=== PATIENT | male | born 1945 | race Caucasian/White ===

== ENCOUNTER → 2017-01-04 | Outpatient (CLI) | payer MEDICARE, OTHER ==
[2017-01-04 15:06] LABS: CH 33.2; CHCM 32.2; HDW 2.31; HGB 20.4 gm/dL (13.0-17.5); MCH 32.6 pg (25.0-35.0); MCHC 31.3 g/dL (31.0-37.0); MCV 103.8 fL (80.0-100.0); Macrocytosis Slight; Mean Platelet Volume 6.3; RBC 6.27 m/uL (4.30-5.90); RDW 14.1 % (11.5-15.5); WBC 5.7 k/uL (3.8-10.6)
[2017-01-04 15:09] LABS: Appearance,Urine Clear (Clear); Bilirubin,Urine Negative (Negative); Glucose,Urine (UA) Negative (Negative); Ketones,Urine Negative (Negative); Leukocyte Esterase,Urine Negative (Negative); Nitrite,Urine Negative (Negative); Protein,Urine Negative (Negative); Specific Gravity,Urine 1.007 (1.001-1.035); UA Billing (MACRO vs. MICRO) CHEM; Urobilinogen,Urine <2.0 mg/dL (<2.0)
[2017-01-04 15:15] LABS: INR 1.3 (<1.2); Partial Thromboplastin Time 26.9 sec (22.0-30.0); Prothrombin Time 12.8 sec (9.0-12.0)
[2017-01-04 15:18] LABS: ALT 49 U/L (21-72); AST 31 U/L (17-59); Alkaline Phosphatase 81 U/L (38-126); Anion Gap 11 mmol/L; Blood Urea Nitrogen 15 mg/dL (9-20); Calcium 9.9 mg/dL (8.4-10.2); Carbon Dioxide 26 mmol/L (22-30); Chloride 105 mmol/L (98-107); Glucose 92 mg/dL (74-99); Non-African American GFR(MDRD) >60 (>60 ml/min/1.73 sqM); Potassium 4.7 mmol/L (3.5-5.1); Sodium 142 mmol/L (137-145); Total Bilirubin 0.7 mg/dL (0.2-1.3)
[2017-01-04 16:05] LABS: HCT 65.1 % (39.0-53.0)
== END | disposition home or self-care (01) ==
LOC: LABPAT 14:37
PROVIDERS: ATTEND Orthopaedic Surgery
DX: Z01.812 Encounter for preprocedural laboratory examination (principal); M19.90 Unspecified osteoarthritis, unspecified site; Z79.01 Long term (current) use of anticoagulants
CPT/HCPCS: 36415; 80053; 81003; 85027; 85610; 85730; 87070

== ENCOUNTER → 2017-07-15 | Outpatient (CLI) | payer MEDICARE, OTHER ==
[2017-07-15 11:28] VITALS: BMI 46.5
== END | disposition home or self-care (01) ==
LOC: MNTWWP 09:14
PROVIDERS: ATTEND Orthopaedic Surgery
DX: E66.01 Morbid (severe) obesity due to excess calories (principal)
CPT/HCPCS: 97802

== ENCOUNTER → 2018-08-12 | Outpatient (CLI) | payer OTHER ==
--- NOTE | 2018-08-12 17:30 | XR ---
EXAMINATION TYPE: XR elbow complete RT DATE OF EXAM: 08/12/2018 COMPARISON: NONE HISTORY: Fall. Laceration. TECHNIQUE: 3 views FINDINGS: There is spurring on the olecranon process of the ulna. I see no fracture nor dislocation. Joint spaces are normal. There is no sign of joint effusion. There is spurring on the coronoid proces s of the ulna. IMPRESSION: Degenerative spurring. No fracture.
== END | disposition home or self-care (01) ==
LOC: RAD 16:49
PROVIDERS: ATTEND Emergency Medicine
DX: M77.8 Other enthesopathies, not elsewhere classified (principal)

== ENCOUNTER 2018-09-06 21:56 | Inpatient (IN) | payer MEDICARE, OTHER ==
[2018-09-06] MEDS ORDERED: VANCOMYCIN IV PER PHARMACY 1 EACH MISC MISCELLANE PRN (22:50)
[2018-09-06] MEDS ORDERED: DILTIAZEM DRIP BOLUS FROM BAG 1 MG SOLN IV ONE (23:09)
--- NOTE | 2018-09-06 23:10 | ED ---
SOB HPI - General Chief Complaint: Shortness of Breath Stated Complaint: Edema/TRENT Time Seen by Provider: 09/06/18 22:42 Source: patient, family Mode of arrival: wheelchair Limitations: no limitations - History of Present Illness Initial Comments: Deondre an obese 72-year-old gentleman with history of COPD and CHF who presents the emergency department today with multiple complaints. Patient reports that he is notices lower abdomen is very warm and tender he's concerned that there may be an infection in the skin. In addition he feels like he can't catch his breath and his heart is racing. She reports that this is been progressively worsening throughout the day today which prompted him to come to the ER for further evaluation. Patient also notes that his lower extremities are swollen he seems to be retaining water worse than usual. Patient reports his been compliant with all his home medications he was seen by his primary care physician last week and told that his EKG did not look well and he needed to follow up with cardiology this week. - Related Data Home Medications Medication Instructions Recorded Confirmed Beclomethasone Dipropionate [Qvar 1 puff INHALATION RT-BID 10/08/14 01/22/17 80 mcg/puff] Multivitamin [Men's Multi-Vitamin] 1 tab PO DAILY 10/08/14 01/22/17 Furosemide [Lasix] 20 mg PO BID 11/12/15 01/22/17 Potassium Chloride [K-Tab ER] 10 meq PO DAILY 11/12/15 01/22/17 Acetaminophen/Diphenhydramine 3 tab PO BID PRN 01/08/17 01/22/17 [Tylenol PM Extra Strength] Albuterol Sulfate [Proair 1 puff INHALATION RT-BID 01/08/17 01/22/17 Respiclick] Ipratropium-Albuterol Nebulize 3 ml INHALATION RT-QID PRN 01/08/17 01/22/17 [Duoneb 0.5 mg-3 mg/3 ml Soln] Previous Rx's Medication Instructions Recorded Aspirin EC [Ecotrin Low Dose] 81 mg PO DAILY #0 tablet. 01/11/15 Atorvastatin [Lipitor] 20 mg PO HS #30 tab 01/11/15 Montelukast [Singulair] 10 mg PO HS #30 tab 01/11/15 Enoxaparin Sodium [Lovenox] 30 mg SQ BID #12 syringe 01/14/17 HYDROcodone/APAP 7.5-325MG [[place] 1 - 2 tab PO Q4-6H PRN #90 tab 01/14/17 7.5-325] Sennosides-Docusate Sodium 1 tab PO BID #60 tablet 01/14/17 [Senokot-S] Warfarin [Coumadin] 5 mg PO DAILY #30 tab 01/14/17 Allergies Allergy/AdvReac Type Severity Reaction Status Date / Time warfarin [From Coumadin] AdvReac SEE Verified 01/22/17 11:41 COMMENTS Review of Systems ROS Statement: Those systems with pertinent positive or pertinent negative responses have been documented in the HPI. ROS Other: All systems not noted in ROS Statement are negative. Past Medical History Past Medical History: Atrial Fibrillation, Asthma, Blood Disorder, Chest Pain / Angina, COPD, GERD/Reflux, Hyperlipidemia, Hypertension, Skin Disorder, Sleep Apnea/CPAP/BIPAP Additional Past Medical History / Comment(s): psoriasis, hemoglobin [place] with polycythemia, pericardial effusion, hx hiatal hernia, uses oxygen 2L ching nuously History of Any Multi-Drug Resistant Organisms: None Reported Past Surgical History: Appendectomy, Hernia Repair Additional Past Surgical History / Comment(s): Laparoscopic lucia fundloplasty and mesh repair of hiatal hernia. arthroscopy left knee Past Anesthesia/Blood Transfusion Reactions: Motion Sickness Additional Past Anesthesia/Blood Transfusion Reaction / Comment(s): . Past Psychological History: No Psychological Hx Reported Smoking Status: Former smoker - Past Family History Sister(s) Family Medical History: Deep Vein Thrombosis (DVT) Brother(s) Family Medical History: Myocardial Infarction (NV) Additional Family Medical History / Comment(s): Brother had a NV at age 71 yrs. Father Family Medical History: Cancer Additional Family Medical History / Comment(s): . Mother Family Medical History: Cancer Additional Family Medical History / Comment(s): . General Exam - General Exam Comments Initial Comments: Physical Exam GENERAL: Chronically ill appearing morbidly obese gentleman HENT: Normocephalic, Atraumatic. EYES: PERRL, EOMI PULMONARY: Tachypnea, crackles at the bilateral bases CARDIOVASCULAR: Tachycardic, regular ABDOMEN: Obese, normal active bowel sounds Lower abdomen is erythematous with obvious lymphedema, induration, no obvious abscesses noted SKIN: Cellulitis of lower abdomen noted Bilateral lower extremity skin changes consistent with chronic venous stasis : Deferred NEUROLOGIC: Patient is alert and oriented x3. Moving all extremities spontaneously MUSCULOSKELETAL: Normal extremities with adequate strength and full range of motion. No lower extremity swelling or edema. No calf tenderness. PSYCHIATRIC: Normal psychiatric evaluation Limitations: no limitations Course Vital Signs 09/06/18 09/06/18 09/07/18 22:18 23:24 00:30 Temperature 98.0 F 97.6 F 97.4 F L Pulse Rate 135 H 144 H 138 H Respiratory 22 26 H 20 Rate Blood Pressure 153/80 128/97 129/91 O2 Sat by Pulse 97 98 99 Oximetry 09/07/18 09/07/18 09/07/18 01:30 01:53 02:18 Temperature Pulse Rate 135 H 138 H 129 H Respiratory 21 Rate Blood Pressure 134/85 O2 Sat by Pulse 99 Oximetry 09/07/18 09/07/18 09/07/18 02:30 03:17 03:30 Temperature 97.9 F Pulse Rate 129 H 113 H 112 H Respiratory 21 22 19 Rate Blood Pressure 101/77 98/76 127/101 O2 Sat by Pulse 99 97 99 Oximetry 09/07/18 04:30 Temperature 97.3 F L Pulse Rate 114 H Respiratory 21 Rate Blood Pressure 118/75 O2 Sat by Pulse 99 Oximetry Medical Decision Making - Medical Decision Making The patient was seen and evaluated, history was obtained from the patient Patient has obvious cellulitis of the abdomen in addition is noted to be in A. flutter with RVR and CHF exacerbation, sepsis workup was initiated however IV fluids were held given the patient's physical exam concerning for fluid overload Cardizem was ordered for tachyarrhythmia Labs were delayed due to clotting of blood and inability to process CMP at baseline CBC was redrawn and resulted with Hgb of 8.7 - concern this may be due to dilution from IV fluids therefore repeat CBC was ordered which resulted again with hemoglobin 8.9 this is a significant drop from the patient's baseline which is usually 1718 as the patient has a history of polycythemia Despite receiving Cardizem patient's heart rate continues to be in the 120s, patient care was discussed with wire roller Dr. Carvajal who states that due to the difficulty of controlling rate in atrial flutter the patient is okay to have a heart rate below 140. Patients heart rate steady in the 1 teens to 120s on CT scan resulted with evidence of cellulitis in the lower abdomen no other acute pathology there is no free air there is no signs of abscess collection in the soft tissues Patient care was discussed with admitting physician Dr.Katrib Kulkarni to be admitted for cellulitis of the abdomen, atrial flutter with 2-1 conduction block with cardiology on consult, new onset anemia of unknown cause - Lab Data Result diagrams: 09/07/18 03:50 09/06/18 23:20 Lab Results 09/06/18 09/06/18 09/06/18 Range/Units 23:20 23:20 23:20 WBC (3.8-10.6) k/uL RBC (4.30-5.90) m/uL Hgb (13.0-17.5) gm/dL Hct (39.0-53.0) % MCV (80.0-100.0) fL MCH (25.0-35.0) pg MCHC (31.0-37.0) g/dL RDW (11.5-15.5) % Plt Count (150-450) k/uL Neutrophils % % Lymphocytes % % Monocytes % % Eosinophils % % Basophils % % Neutrophils # (1.3-7.7) k/uL Lymphocytes # (1.0-4.8) k/uL Monocytes # (0-1.0) k/uL Eosinophils # (0-0.7) k/uL Basophils # (0-0.2) k/uL Hypochromasia Poikilocytosis Anisocytosis Microcytosis PT (9.0-12.0) sec INR (<1.2) APTT (22.0-30.0) sec Sodium 132 L (137-145) mmol/L Potassium 4.8 (3.5-5.1) mmol/L Chloride 98 (98-107) mmol/L Carbon Dioxide 21 L (22-30) mmol/L Anion Gap 13 mmol/L BUN 12 (9-20) mg/dL Creatinine 0.75 (0.66-1.25) mg/dL Est GFR (CKD-EPI)AfAm >90 (>60 ml/min/1.73 sqM) Est GFR (CKD-EPI)NonAf >90 (>60 ml/min/1.73 sqM) Glucose 105 H (74-99) mg/dL Plasma Lactic Acid Roberto 1.7 (0.7-2.0) mmol/L Calcium 8.4 (8.4-10.2) mg/dL Magnesium 2.1 (1.6-2.3) mg/dL Total Bilirubin 0.6 (0.2-1.3) mg/dL AST 68 H (17-59) U/L ALT 29 (21-72) U/L Alkaline Phosphatase 93 (38-126) U/L Troponin I <0.012 (0.000-0.034) ng/mL NT-Pro-B Natriuret Pep pg/mL Total Protein 6.7 (6.3-8.2) g/dL Albumin 3.9 (3.5-5.0) g/dL Urine Color Urine Appearance (Clear) Urine pH (5.0-8.0) Ur Specific [place] (1.001-1.035) Urine Protein (Negative) Urine Glucose (UA) (Negative) Urine Ketones (Negative) Urine Blood (Negative) Urine Nitrite (Negative) Urine Bilirubin (Negative) Urine Urobilinogen (<2.0) mg/dL Ur Leukocyte Esterase (Negative) 09/07/18 09/07/18 09/07/18 Range/Units 02:02 02:02 02:02 WBC 7.2 (3.8-10.6) k/uL RBC 4.53 (4.30-5.90) m/uL Hgb 8.7 L (13.0-17.5) gm/dL Hct 31.3 L (39.0-53.0) % MCV 69.1 L (80.0-100.0) fL MCH 19.2 L (25.0-35.0) pg MCHC 27.8 L (31.0-37.0) g/dL RDW 19.0 H (11.5-15.5) % Plt Count 239 (150-450) k/uL Neutrophils % 76 % Lymphocytes % 12 % Monocytes % 5 % Eosinophils % 3 % Basophils % 0 % Neutrophils # 5.5 (1.3-7.7) k/uL Lymphocytes # 0.9 L (1.0-4.8) k/uL Monocytes # 0.4 (0-1.0) k/uL Eosinophils # 0.2 (0-0.7) k/uL Basophils # 0.0 (0-0.2) k/uL Hypochromasia Marked Poikilocytosis Moderate Anisocytosis Slight Microcytosis Marked PT 11.0 (9.0-12.0) sec INR 1.0 (<1.2) APTT 24.7 (22.0-30.0) sec Sodium (137-145) mmol/L Potassium (3.5-5.1) mmol/L Chloride (98-107) mmol/L Carbon Dioxide (22-30) mmol/L Anion Gap mmol/L BUN (9-20) mg/dL Creatinine (0.66-1.25) mg/dL Est GFR (CKD-EPI)AfAm (>60 ml/min/1.73 sqM) Est GFR (CKD-EPI)NonAf (>60 ml/min/1.73 sqM) Glucose (74-99) mg/dL Plasma Lactic Acid Roberto (0.7-2.0) mmol/L Calcium (8.4-10.2) mg/dL Magnesium (1.6-2.3) mg/dL Total Bilirubin (0.2-1.3) mg/dL AST (17-59) U/L ALT (21-72) U/L Alkaline Phosphatase (38-126) U/L Troponin I (0.000-0.034) ng/mL NT-Pro-B Natriuret Pep 1070 pg/mL Total Protein (6.3-8.2) g/dL Albumin (3.5-5.0) g/dL Urine Color Urine Appearance (Clear) Urine pH (5.0-8.0) Ur Specific [place] (1.001-1.035) Urine Protein (Negative) Urine Glucose (UA) (Negative) Urine Ketones (Negative) Urine Blood (Negative) Urine Nitrite (Negative) Urine Bilirubin (Negative) Urine Urobilinogen (<2.0) mg/dL Ur Leukocyte Esterase (Negative) 09/07/18 09/07/18 Range/Units 02:02 03:50 WBC 7.0 (3.8-10.6) k/uL RBC 4.72 (4.30-5.90) m/uL Hgb 8.9 L (13.0-17.5) gm/dL Hct 32.6 L (39.0-53.0) % MCV 69.1 L (80.0-100.0) fL MCH 18.9 L (25.0-35.0) pg MCHC 27.4 L (31.0-37.0) g/dL RDW 18.9 H (11.5-15.5) % Plt Count 251 (150-450) k/uL Neutrophils % 73 % Lymphocytes % 16 % Monocytes % 5 % Eosinophils % 2 % Basophils % 0 % Neutrophils # 5.1 (1.3-7.7) k/uL Lymphocytes # 1.1 (1.0-4.8) k/uL Monocytes # 0.4 (0-1.0) k/uL Eosinophils # 0.2 (0-0.7) k/uL Basophils # 0.0 (0-0.2) k/uL Hypochromasia Marked Poikilocytosis Moderate Anisocytosis Slight Microcytosis Marked PT (9.0-12.0) sec INR (<1.2) APTT (22.0-30.0) sec Sodium (137-145) mmol/L Potassium (3.5-5.1) mmol/L Chloride (98-107) mmol/L Carbon Dioxide (22-30) mmol/L Anion Gap mmol/L BUN (9-20) mg/dL Creatinine (0.66-1.25) mg/dL Est GFR (CKD-EPI)AfAm (>60 ml/min/1.73 sqM) Est GFR (CKD-EPI)NonAf (>60 ml/min/1.73 sqM) Glucose (74-99) mg/dL Plasma Lactic Acid Roberto (0.7-2.0) mmol/L Calcium (8.4-10.2) mg/dL Magnesium (1.6-2.3) mg/dL Total Bilirubin (0.2-1.3) mg/dL AST (17-59) U/L ALT (21-72) U/L Alkaline Phosphatase (38-126) U/L Troponin I (0.000-0.034) ng/mL NT-Pro-B Natriuret Pep pg/mL Total Protein (6.3-8.2) g/dL Albumin (3.5-5.0) g/dL Urine Color Yellow Urine Appearance Clear (Clear) Urine pH 5.5 (5.0-8.0) Ur Specific [place] 1.018 (1.001-1.035) Urine Protein Trace H (Negative) Urine Glucose (UA) Negative (Negative) Urine Ketones Negative (Negative) Urine Blood Negative (Negative) Urine Nitrite Negative (Negative) Urine Bilirubin Negative (Negative) Urine Urobilinogen <2.0 (<2.0) mg/dL Ur Leukocyte Esterase Negative (Negative) Disposition Clinical Impression: Cellulitis of abdominal wall, Atrial flutter, Congestive heart failure, Acute exacerbation of chronic obstructive airways disease, Psoriasis, Obesity, Hypertension, Anemia Disposition: ADMITTED IP TO THIS HOSP Condition: Serious Referrals: Nolberto Cevallos DO [Primary Care Provider] - 1-2 days
[2018-09-06 23:50] LABS: ALT 29 U/L (21-72); AST 68 U/L (17-59); African American GFR (CKD) >90 (>60 ml/min/1.73 sqM); Albumin 3.9 g/dL (3.5-5.0); Alkaline Phosphatase 93 U/L (38-126); Anion Gap 13 mmol/L; Blood Urea Nitrogen 12 mg/dL (9-20); Calcium 8.4 mg/dL (8.4-10.2); Carbon Dioxide 21 mmol/L (22-30); Chloride 98 mmol/L (98-107); Glucose 105 mg/dL (74-99); Magnesium 2.1 mg/dL (1.6-2.3); Potassium 4.8 mmol/L (3.5-5.1); Sodium 132 mmol/L (137-145); Total Bilirubin 0.6 mg/dL (0.2-1.3); Total Protein 6.7 g/dL (6.3-8.2)
[2018-09-07] MEDS ORDERED: VANCOMYCIN 2,250 MG in SODIUM CHLORIDE 0.9% 500 ML 500 ML IVPB ONE ×2
[2018-09-07] MEDS: DILTIAZEM 125 MG in SODIUM CHLORIDE 0.9% 100 ML IV SCH ×2 (00:06→09:15)
--- NOTE | 2018-09-07 00:13 | XR ---
EXAM: XR Chest, 2 Views CLINICAL HISTORY: ITS.REASON XR Reason: Chest Pain TECHNIQUE: Frontal and lateral views of the chest. COMPARISON: Chest radiograph on 01/24/2017 FINDINGS: Hardware: None. Lungs/pleura: Lower lung opacities may represent atelectasis versus pneumonia. Possible pulmonary vasculature congestion. Similar elevation of the right hemidiaphragm with gas-filled bowel interposed between the diaphragm and liver. No pleural effusion or pneumothorax. Heart/mediastinum: Normal. No cardiomegaly. Soft tissues: Unremarkable. Bones: No acute fracture. Upper abdomen: Normal. IMPRESSION: Bibasilar opacities may represent atelectasis versus pneumonia. Pulmonary vasculature congestion.
[2018-09-07] MEDS ORDERED: MORPHINE SULFATE 4 MG/ML SYRINGE IVP STA (00:31)
[2018-09-07 02:19] LABS: Appearance,Urine Clear (Clear); Bilirubin,Urine Negative (Negative); Blood,Urine Negative (Negative); Color,Urine Yellow; Glucose,Urine (UA) Negative (Negative); Ketones,Urine Negative (Negative); Leukocyte Esterase,Urine Negative (Negative); Nitrite,Urine Negative (Negative); PH, Urine 5.5 (5.0-8.0); Protein,Urine Trace (Negative); Specific Gravity,Urine 1.018 (1.001-1.035); Urobilinogen,Urine <2.0 mg/dL (<2.0)
[2018-09-07 02:20] LABS: Anisocytosis Slight; Basophils % (A) 0 %; Eosinophils # (A) 0.2 k/uL (0-0.7); Eosinophils % (A) 3 %; HCT 31.3 % (39.0-53.0); HGB 8.7 gm/dL (13.0-17.5); Hypochromasia Marked; Lymphocytes # (A) 0.9 k/uL (1.0-4.8); Lymphocytes % (A) 12 %; MCH 19.2 pg (25.0-35.0); MCHC 27.8 g/dL (31.0-37.0); MCV 69.1 fL (80.0-100.0); Mean Platelet Volume 6.2; Microcytosis Marked; Monocytes # (A) 0.4 k/uL (0-1.0); Monocytes % (A) 5 %; Neutrophils # (A) 5.5 k/uL (1.3-7.7); Neutrophils % (A) 76 %; Platelet Count 239 k/uL (150-450); Poikilocytosis Moderate; RBC 4.53 m/uL (4.30-5.90); WBC 7.2 k/uL (3.8-10.6)
[2018-09-07 02:24] LABS: Partial Thromboplastin Time 24.7 sec (22.0-30.0)
--- NOTE | 2018-09-07 03:15 | CT ---
EXAM: CT Abdomen and Pelvis With Intravenous Contrast CLINICAL HISTORY: ITS.REASON CT Reason: Cellulitis of abdominal wall/panus TECHNIQUE: Axial computed tomography images of the abdomen and pelvis with intravenous contrast. CTDI is 50 mGy and DLP is 2531 mGy-cm. This CT exam was performed using one or more of the following dose reduction techniques: automated exposure control, adjustment of the mA and/or kV according to patient size, and/or use of iterative reconstruction technique. COMPARISON: No relevant prior studies available. FINDINGS: Lung bases: No mass. No consolidation. ABDOMEN: Liver: Enlarged with slightly nodular surface.. Gallbladder and bile ducts: Unremarkable. Pancreas: Unremarkable. Spleen: Mildly enlarged. Adrenals: Unremarkable. Kidneys and ureters: No hydronephrosis. Stomach and bowel: No bowel obstruction. No bowel wall thickening. Colonic diverticulosis. PELVIS: Appendix: No appendicitis. Bladder: Unremarkable. Reproductive: Enlarged. ABDOMEN and PELVIS: Intraperitoneal space: Trace ascites. Bones/joints: No acute fractures. Chronic wedging of T8 and CT 12 (30% and 80% respectively). No retropulsion. Soft tissues: Soft tissue stranding along the mid to lower anterior abdominal wall. No abscess. Vasculature: No abdominal aortic aneurysm. Lymph nodes: No enlarged lymph nodes. IMPRESSION: 1. Soft tissue stranding in the mid to lower anterior abdominal wall without abscess, likely represent cellulitis. 2. Hepatosplenomegaly with mild nodular surface of the liver suggestive of early cirrhotic changes. Trace ascites. 3. Prostatomegaly. 4. Colonic diverticulosis.
[2018-09-07 04:14] LABS: Anisocytosis Slight; Basophils % (A) 0 %; Eosinophils # (A) 0.2 k/uL (0-0.7); Eosinophils % (A) 2 %; HCT 32.6 % (39.0-53.0); HGB 8.9 gm/dL (13.0-17.5); Hypochromasia Marked; Lymphocytes # (A) 1.1 k/uL (1.0-4.8); Lymphocytes % (A) 16 %; MCH 18.9 pg (25.0-35.0); MCHC 27.4 g/dL (31.0-37.0); MCV 69.1 fL (80.0-100.0); Microcytosis Marked; Monocytes # (A) 0.4 k/uL (0-1.0); Monocytes % (A) 5 %; Neutrophils # (A) 5.1 k/uL (1.3-7.7); Neutrophils % (A) 73 %; Platelet Count 251 k/uL (150-450); Poikilocytosis Moderate; RBC 4.72 m/uL (4.30-5.90); RDW 18.9 % (11.5-15.5)
[2018-09-07] MEDS ORDERED: FUROSEMIDE 10 MG/ML 4 ML VIAL IV STA (05:08)
[2018-09-07] MEDS ORDERED: NALOXONE 0.4 MG/ML 1 ML VIAL IV PRN (06:11)
[2018-09-07] MEDS ORDERED: HEPARIN SODIUM,PORCINE 5,000 UNIT/ML 1 ML VIAL IV ONE (06:13)
[2018-09-07] MEDS: HEPARIN SOD,PORK IN 0.45% NACL 25,000 UNIT in 0.45% NACL 1 250ML.BAG IV SCH (06:39)
[2018-09-07] MEDS: VANCOMYCIN 2,000 MG in SODIUM CHLORIDE 0.9% 500 ML 500 ML IVPB SCH ×2 (09:21→20:42)
[2018-09-07 09:42] LABS: Anisocytosis Slight; Basophils % (A) 0 %; Eosinophils # (A) 0.1 k/uL (0-0.7); Eosinophils % (A) 2 %; HCT 34.3 % (39.0-53.0); HGB 9.3 gm/dL (13.0-17.5); Hypochromasia Marked; Lymphocytes # (A) 0.8 k/uL (1.0-4.8); Lymphocytes % (A) 11 %; MCH 19.5 pg (25.0-35.0); MCHC 27.1 g/dL (31.0-37.0); Mean Platelet Volume 6.5; Microcytosis Moderate; Monocytes # (A) 0.4 k/uL (0-1.0); Monocytes % (A) 6 %; Neutrophils # (A) 5.5 k/uL (1.3-7.7); Neutrophils % (A) 79 %; Platelet Count 241 k/uL (150-450); Poikilocytosis Moderate; RBC 4.77 m/uL (4.30-5.90); RDW 18.1 % (11.5-15.5)
[2018-09-07 09:52] LABS: D-Dimer 0.75 mg/L FEU (<0.60); Partial Thromboplastin Time 34.7 sec (22.0-30.0); Prothrombin Time 10.9 sec (9.0-12.0)
[2018-09-07] MEDS: traMADol 50 MG TAB PO PRN (11:13)
[2018-09-07] MEDS: VERAPAMIL SR 180 MG TABLET.ER PO SCH (11:13)
[2018-09-07] MEDS: MULTIVITAMINS, THERA 1 EACH TAB PO SCH (11:13)
--- NOTE | 2018-09-07 11:13 | P.HPIM ---
History of Present Illness H&P Date: 09/07/18 Chief Complaint: Shortness breath This is 72 years old male with past medical history significant for chronic respiratory failure with hypoxia home oxygen dependent presented to the emergency department with shortness of breath. Patient stated normally he uses oxygen at the bedtime with his CPAP machine but don't use oxygen during the day as his saturation ranged between 89-92% on room air. Patient stated that his shortness breath has been worsening slowly and gradually with worsening lower extremity edema and today patient was having chest palpitation that he was co ncerned about and presented to the emergency department. Patient stated that his symptoms happened slowly and gradually was having difficulty laying in bed and stated that his been up sitting in his recliner all the time due to shortness breath. Patient stated that his lower extremity swelling has worsened despite taking Lasix 40 mg twice daily and stated that he's taking all his medication as his dispense to him. I spoke to the over the phone who stated that patient quit taking Coumadin 3 years ago after his knee surgery and easy bruising where the visiting nurse asked him to hold Coumadin and see director surface transportation but they did not schedule appointment with director surface transportation for the last 3 years at the time patient is well known to have atrial fibrillation/flutter. Patient stated that his shortness breath has slightly improved since yesterday but still unable to sleep in bed complaining of lower extremity weakness denied any recent upper respiratory symptoms denying dysuria denying productive cough and stated that his oxygen need stated the same. Patient denying tobacco alcohol or drug abuse Review of Systems All 14 systems reviewed and negative except as above Past Medical History Past Medical History: Atrial Fibrillation, Asthma, Blood Disorder, Chest Pain / Angina, COPD, GERD/Reflux, Hyperlipidemia, Hypertension, Skin Disorder, Sleep Apnea/CPAP/BIPAP Additional Past Medical History / Comment(s): psoriasis, hemoglobin [place] with polycythemia, pericardial effusion, hx hiatal hernia, hx bowel obstruction, uses oxygen 2L at , 09/07/2018-cellulitis History of Any Multi-Drug Resistant Organisms: None Reported Past Surgical History: Appendectomy, Hernia Repair Additional Past Surgical History / Comment(s): Laparoscopic lucia fundloplasty and mesh repair of hiatal hernia. arthroscopy left knee Past Anesthesia/Blood Transfusion Reactions: Motion Sickness Additional Past Anesthesia/Blood Transfusion Reaction / Comment(s): . Past Psychological History: No Psychological Hx Reported Additional Psychological History / Comment(s): PT LIVES WITH . uses cane for ambulation Smoking Status: Former smoker Past Alcohol Use History: None Reported Additional Past Alcohol Use History / Comment(s): STARTED SMOKING 1962 AND quit smoking 2014. SMOKED 1 PPD Past Drug Use History: None Reported - Past Family History Sister(s) Family Medical History: Deep Vein Thrombosis (DVT) Brother(s) Family Medical History: Myocardial Infarction (ID) Additional Family Medical History / Comment(s): Brother had a ID at age 71 yrs. Father Family Medical History: Cancer Additional Family Medical History / Comment(s): . Mother Family Medical History: Cancer Additional Family Medical History / Comment(s): . Medications and Allergies Home Medications Medication Instructions Recorded Confirmed Type Multivitamin [Men's Multi-Vitamin] 1 tab PO DAILY 10/08/14 09/07/18 History Aspirin EC [Ecotrin Low Dose] 81 mg PO DAILY #0 tablet. 01/11/15 09/07/18 Rx Atorvastatin [Lipitor] 20 mg PO HS #30 tab 01/11/15 09/07/18 Rx Montelukast [Singulair] 10 mg PO HS #30 tab 01/11/15 09/07/18 Rx Furosemide [Lasix] 40 mg PO BID 11/12/15 09/07/18 History Potassium Chloride [K-Tab ER] 20 meq PO BID 11/12/15 09/07/18 History Albuterol Sulfate [Proair 1 puff INHALATION RT-BID 01/08/17 09/07/18 History Respiclick] Ipratropium-Albuterol Nebulize 3 ml INHALATION RT-QID PRN 01/08/17 09/07/18 History [Duoneb 0.5 mg-3 mg/3 ml Soln] Sennosides-Docusate Sodium 1 tab PO BID #60 tablet 01/14/17 09/07/18 Rx [Senokot-S] metFORMIN HCL 1,000 mg PO AC-BRKFST 09/07/18 09/07/18 History metFORMIN HCL 1,500 mg PO AC-SUPPER 09/07/18 09/07/18 History sitaGLIPtin [Januvia] 100 mg PO DAILY 09/07/18 09/07/18 History Allergies Allergy/AdvReac Type Severity Reaction Status Date / Time acetaminophen [From [place]] AdvReac see Verified 09/07/18 10:02 comments hydrocodone [From [place]] AdvReac see Verified 09/07/18 10:02 comments warfarin [From Coumadin] AdvReac SEE Verified 01/22/17 11:41 COMMENTS Physical Exam Vitals: Vital Signs Temp Pulse Pulse Resp BP BP Pulse Ox 09/07/18 10:07 97.8 F 139 H 24 136/84 100 09/07/18 07:58 98.2 F 115 H 22 110/73 99 09/07/18 07:53 113 H 18 09/07/18 06:45 98 F 09/07/18 06:25 97.7 F 98 18 115/70 99 09/07/18 05:56 114 H 21 126/83 98 09/07/18 05:25 126 H 21 110/83 99 09/07/18 04:30 97.3 F L 114 H 21 118/75 99 09/07/18 03:30 112 H 19 127/101 99 09/07/18 03:17 97.9 F 113 H 22 98/76 97 09/07/18 02:30 129 H 21 101/77 99 09/07/18 02:18 129 H 09/07/18 01:53 138 H 09/07/18 01:30 135 H 21 134/85 99 09/07/18 00:30 97.4 F L 138 H 20 129/91 99 09/06/18 23:24 97.6 F 144 H 26 H 128/97 98 09/06/18 22:18 98.0 F 135 H 22 153/80 97 Intake and Output 09/06/18 09/07/18 09/07/18 22:59 06:59 14:59 Intake Total 13.084 604.25 Output Total 300 Balance 13.084 304.25 Intake: Intake, IV Titration 13.084 604.25 Amount Diltiazem 125 mg In 13.084 104.25 Sodium Chloride 0.9% 100 ml @ Per Protocol 5 mls/ hr IV .Q24H [facility] Rx#: [id number] Vancomycin 2,000 mg In 500 Sodium Chloride 0.9% 500 ml 500 ml @ 167 mls/hr IVPB Q12H [facility] Rx#: [id number] Output: Urine 300 Other: Voiding Method Toilet Urinal # Voids 1 Weight 147.418 kg Gen.: in stated age, no acute distress, mild shortness breath with composition Heart: Normal S1-S2 Lungs: Crackles on the bases bilaterally Abdomen: Soft, no tenderness, positive bowel sounds in all 4 quadrant no gu arding or rebound Skin: No new rash Psych: Alert and oriented 3 Neuro: No focal deficit Lower extremity Posta for 3+ pitting edema bilaterally Results CBC & Chem 7: 09/07/18 09:14 09/06/18 23:20 Labs: Abnormal Lab Results - Last 24 Hours (Table) 09/06/18 09/07/18 09/07/18 Range/Units 23:20 02:02 02:02 Hgb 8.7 L (13.0-17.5) gm/dL Hct 31.3 L (39.0-53.0) % MCV 69.1 L (80.0-100.0) fL MCH 19.2 L (25.0-35.0) pg MCHC 27.8 L (31.0-37.0) g/dL RDW 19.0 H (11.5-15.5) % Lymphocytes # 0.9 L (1.0-4.8) k/uL APTT (22.0-30.0) sec D-Dimer (<0.60) mg/L FEU Sodium 132 L (137-145) mmol/L Carbon Dioxide 21 L (22-30) mmol/L Glucose 105 H (74-99) mg/dL AST 68 H (17-59) U/L Urine Protein Trace H (Negative) 09/07/18 09/07/18 09/07/18 Range/Units 03:50 09:14 09:14 Hgb 8.9 L 9.3 L (13.0-17.5) gm/dL Hct 32.6 L 34.3 L (39.0-53.0) % MCV 69.1 L 72.0 L (80.0-100.0) fL MCH 18.9 L 19.5 L (25.0-35.0) pg MCHC 27.4 L 27.1 L (31.0-37.0) g/dL RDW 18.9 H 18.1 H (11.5-15.5) % Lymphocytes # 0.8 L (1.0-4.8) k/uL APTT 34.7 H (22.0-30.0) sec D-Dimer 0.75 H (<0.60) mg/L FEU Sodium (137-145) mmol/L Carbon Dioxide (22-30) mmol/L Glucose (74-99) mg/dL AST (17-59) U/L Urine Protein (Negative) Microbiology - Last 24 Hours (Table) 09/07/18 02:02 Urine Culture - Preliminary Urine,Voided Thrombosis Risk Factor Assmnt - Choose All That Apply Any of the Below Risk Factors Present?: Yes Each Factor Represents 1 point: Abnormal pulmonary function (COPD), Obesity (BMI >25), Swollen legs (current) Other Risk Factors: Yes Each Risk Factor Represents 2 Points: Age 61-74 years Other congenital or acquired thrombophilia - If yes, enter type in comment: No Thrombosis Risk Factor Assessment Total Risk Factor Score: 5 Thrombosis Risk Factor Assessment Level: High Risk Assessment and Plan Assessment: 1. Atrial flutter with rapid ventricular response. 2. Dyspnea multifactorial including 3. CHF exacerbation. 4. Chronic respiratory failure with hypoxia. 5. Severe COPD. 6. Debility and deconditioning. 7. Morbid obesity. 8. Asthma. 9. Noncompliance with home medication. 10. Obstructive sleep apnea. 11. Hypertension. 12. Hyperlipidemia. 13. GERD. I had long discussion with patient and his over the phone regarding his med ication and obtained the current medication the patient takes at home as he is not taking what's prescribed for him discussed with him adherence to medication and doctors follow-up outpatient. I would like to start patients on Lasix 40 mg IV push twice daily, monitor daily I's and O's, monitor his daily weight, leg elevation, monitor clinical progress and continue cardioprotective medication. Patient heart rate becoming under better control and I would like to adjust his medication to control his heart rate below 100 on discharge. Continue with heparin drip and consider switching to oral agents based on cardiology evaluation as patient is high risk for fall and his reported falling 3 days ago due to worsening swelling in the legs and another fall 6 month ago where she indicated it was mechanical with patient's morbid obesity severe osteoarthritis and frequent falls patient may be considered high risk for anticoagulation and may benefit from aspirin only with heart rate controlling agent. We'll have cardiology evaluate the patient and assess his risk score and discussed with them later discharge planning based on clinical progress we'll resume his home medication with holding parameters continue with oxygen 24 7 titrate for oxygen between 89 and 92% and continue using CPAP at the nighttime. Prognosis remained guarded at this point
[2018-09-07] MEDS: SENNOSIDES-DOCUSATE SODIUM 1 EACH TAB PO SCH ×2 (11:14→20:39)
[2018-09-07] MEDS: ASPIRIN 81 MG PO SCH (11:14)
[2018-09-07] MEDS: metFORMIN 500 MG TAB PO SCH ×2 (11:14→17:10)
[2018-09-07] MEDS: POTASSIUM CHLORIDE ER 20 MEQ TAB.ER PO SCH ×2 (11:14→20:39)
[2018-09-07] MEDS: FUROSEMIDE 10 MG/ML 4 ML VIAL IV SCH ×2 (11:14→20:40)
[2018-09-07] MEDS: IPRATROPIUM-ALBUTEROL 3 ML NEB INHALATION PRN ×3 (11:49→20:04)
[2018-09-07 11:56] LABS: Glucose,Whole Blood 129 mg/dL (75-99)
[2018-09-07] MEDS: INSULIN ASPART (NovoLOG) 100 UNIT/ML VIAL SQ SCH ×3 (12:29→20:40)
--- NOTE | 2018-09-07 15:13 | P.CRDCN ---
History of Present Illness History of present illness: This is Jocelin Bonds PA-C dictating a consult on this patient The patient was interviewed and examined by me as well as by Dr. Escoto Case discussed with Dr. Escoto and he agrees with the plan of care IMPRESSION / ASSESSMENT: Atrial tachycardia with RVR, possibly atrial flutter Dyslipidemia Hypertension COPD Diabetes PLAN: Continue heparin, start anticoagulation tomorrow, questionable history of issues with warfarin in the past, consider NOAC Start verapamil 180 mg daily for rate control, may increase and tomorrow if needed for rate control Continue Cardizem drip for now, wean off tomorrow Continue aspirin, atorvastatin, Lasix Hold off on echocardiogram for now until heart rate is better controlled HPI The patient is a 72-year-old male with past medical history of COPD, hypertension, diabetes, dyslipidemia who presented with complaints of increased edema. States he has had increasing edema in his legs extending up to his abdomen over the last few days. Has also had worsening shortness of breath with exertion. Denies any chest pain, palpitations, dizziness, lightheadedness, syncope. EKG showed atrial tachycardia with RVR. He has a questionable history of atrial fibrillation and states he was on warfarin 3 years ago but had to be taken because" his blood became too thin". He is a patient of Dr. Wasserman. He was started on IV Cardizem and IV heparin. He continues to be atrial tachycardia with RVR. Seen and examined sitting in his chair. States he is short of breath, especially with exertion. Denies chest pain or palpitations. EXAMINATION: Temperature 97.6F, pulse 103 respiration 20, blood pressure 136/84, oxygen saturation 100% on 2 L nasal cannula Patient seen and examined sitting in a chair, no acute distress Heart sounds are regular distant, soft, no murmurs appreciated Breath sounds diminished bilaterally, scattered rhonchi Peripheral edema extending up bilateral legs No elevated JVD noted REVIEW OF LABS, ECG & MEDICAL DATA EKG shows atrial tachycardia with RVR, possible atrial flutter Labs reviewed, WBC 7.0, hemoglobin 9.3, sodium 123, passed potassium 4.8, BUN 12, creatinine 0.75, troponin negative, TSH within normal limits CT abdomen pelvis revealed soft tissue stranding in the mid to lower abdominal wall, likely cellulitis, hepatosplenomegaly with mild nodular surface of liver suggested of early cirrhosis Last echocardiogram 2014 shows normal LV systolic function with EF 65-70% Past Medical History Past Medical History: Atrial Fibrillation, Asthma, Blood Disorder, Chest Pain / Angina, COPD, GERD/Reflux, Hyperlipidemia, Hypertension, Skin Disorder, Sleep Apnea/CPAP/BIPAP Additional Past Medical History / Comment(s): psoriasis, hemoglobin [place] with polycythemia, pericardial effusion, hx hiatal hernia, hx bowel obstruct ion, uses oxygen 2L at HS, 09/07/2018-cellulitis History of Any Multi-Drug Resistant Organisms: None Reported Past Surgical History: Appendectomy, Hernia Repair Additional Past Surgical History / Comment(s): Laparoscopic lucia fundloplasty and mesh repair of hiatal hernia. arthroscopy left knee Past Anesthesia/Blood Transfusion Reactions: Motion Sickness Additional Past Anesthesia/Blood Transfusion Reaction / Comment(s): . Past Psychological History: No Psychological Hx Reported Additional Psychological History / Comment(s): PT LIVES WITH . uses cane for ambulation Smoking Status: Former smoker Past Alcohol Use History: None Reported Additional Past Alcohol Use History / Comment(s): STARTED SMOKING 1962 AND quit smoking 2014. SMOKED 1 PPD Past Drug Use History: None Reported - Past Family History Sister(s) Family Medical History: Deep Vein Thrombosis (DVT) Brother(s) Family Medical History: Myocardial Infarction (DE) Additional Family Medical History / Comment(s): Brother had a DE at age 71 yrs. Father Family Medical History: Cancer Additional Family Medical History / Comment(s): . Mother Family Medical History: Cancer Additional Family Medical History / Comment(s): . Medications and Allergies Home Medications Medication Instructions Recorded Confirmed Type Multivitamin [Men's Multi-Vitamin] 1 tab PO DAILY 10/08/14 09/07/18 History Aspirin EC [Ecotrin Low Dose] 81 mg PO DAILY #0 tablet. 01/11/15 09/07/18 Rx Atorvastatin [Lipitor] 20 mg PO HS #30 tab 01/11/15 09/07/18 Rx Montelukast [Singulair] 10 mg PO HS #30 tab 01/11/15 09/07/18 Rx Furosemide [Lasix] 40 mg PO BID 11/12/15 09/07/18 History Potassium Chloride [K-Tab ER] 20 meq PO BID 11/12/15 09/07/18 History Albuterol Sulfate [Proair 1 puff INHALATION RT-BID 01/08/17 09/07/18 History Respiclick] Ipratropium-Albuterol Nebulize 3 ml INHALATION RT-QID PRN 01/08/17 09/07/18 History [Duoneb 0.5 mg-3 mg/3 ml Soln] Sennosides-Docusate Sodium 1 tab PO BID #60 tablet 01/14/17 09/07/18 Rx [Senokot-S] Ferrous Sulfate [Feosol] 325 mg PO DAILY 09/07/18 09/07/18 History Meloxicam [Mobic] 15 mg PO DAILY 09/07/18 09/07/18 History Umeclidinium Brm/Vilanterol Tr 1 puff INHALATION RT-DAILY 09/07/18 09/07/18 History [Anoro Ellipta 62.5-25 Mcg INH] metFORMIN HCL 1,000 mg PO AC-BRKFST 09/07/18 09/07/18 History metFORMIN HCL 1,500 mg PO AC-SUPPER 09/07/18 09/07/18 History sitaGLIPtin [Januvia] 100 mg PO DAILY 09/07/18 09/07/18 History Allergies Allergy/AdvReac Type Severity Reaction Status Date / Time acetaminophen [From [place]] AdvReac see Verified 09/07/18 11:15 comments hydrocodone [From [place]] AdvReac see Verified 09/07/18 11:15 comments warfarin [From Coumadin] AdvReac SEE Verified 09/07/18 11:15 COMMENTS Physical Exam Vitals: Vital Signs Temp Pulse Pulse Resp BP BP Pulse Ox 09/07/18 12:03 100 09/07/18 12:00 97.6 F 58 L 20 119/73 09/07/18 11:53 104 H 09/07/18 11:33 103 H 24 09/07/18 10:07 97.8 F 139 H 24 136/84 100 09/07/18 07:58 98.2 F 115 H 22 110/73 99 09/07/18 07:53 113 H 18 09/07/18 06:45 98 F 09/07/18 06:25 97.7 F 98 18 115/70 99 09/07/18 05:56 114 H 21 126/83 98 09/07/18 05:25 126 H 21 110/83 99 09/07/18 04:30 97.3 F L 114 H 21 118/75 99 09/07/18 03:30 112 H 19 127/101 99 09/07/18 03:17 97.9 F 113 H 22 98/76 97 09/07/18 02:30 129 H 21 101/77 99 09/07/18 02:18 129 H 09/07/18 01:53 138 H 09/07/18 01:30 135 H 21 134/85 99 09/07/18 00:30 97.4 F L 138 H 20 129/91 99 09/06/18 23:24 97.6 F 144 H 26 H 128/97 98 09/06/18 22:18 98.0 F 135 H 22 153/80 97 Intake and Output 09/07/18 09/07/18 09/07/18 06:59 14:59 22:59 Intake Total 13.084 1364.25 Output Total 1200 Balance 13.084 164.25 Intake: Intake, IV Titration 13.084 1104.25 Amount Diltiazem 125 mg In 13.084 104.25 Sodium Chloride 0.9% 100 ml @ Per Protocol 5 mls/ hr IV .Q24H [facility] Rx#: [id number] Vancomycin 2,000 mg In 1000 Sodium Chloride 0.9% 500 ml 500 ml @ 167 mls/hr IVPB Q12H [facility] Rx#: [id number] Oral 260 Output: Urine 1200 Other: Voiding Method Toilet Urinal # Voids 3 Results 09/07/18 09:14 09/06/18 23:20 Cardiac Enzymes 09/06/18 09/06/18 Range/Units 23:20 23:20 AST 68 H (17-59) U/L Troponin I <0.012 (0.000-0.034) ng/mL Coagulation 09/07/18 09/07/18 Range/Units 02:02 09:14 PT 11.0 10.9 (9.0-12.0) sec APTT 24.7 34.7 H (22.0-30.0) sec CBC 09/07/18 09/07/18 09/07/18 Range/Units 02:02 03:50 09:14 WBC 7.2 7.0 7.0 (3.8-10.6) k/uL RBC 4.53 4.72 4.77 (4.30-5.90) m/uL Hgb 8.7 L 8.9 L 9.3 L (13.0-17.5) gm/dL Hct 31.3 L 32.6 L 34.3 L (39.0-53.0) % Plt Count 239 251 241 (150-450) k/uL Comprehensive Metabolic Panel 09/06/18 Range/Units 23:20 Sodium 132 L (137-145) mmol/L Potassium 4.8 (3.5-5.1) mmol/L Chloride 98 (98-107) mmol/L Carbon Dioxide 21 L (22-30) mmol/L BUN 12 (9-20) mg/dL Creatinine 0.75 (0.66-1.25) mg/dL Glucose 105 H (74-99) mg/dL Calcium 8.4 (8.4-10.2) mg/dL AST 68 H (17-59) U/L ALT 29 (21-72) U/L Alkaline Phosphatase 93 (38-126) U/L Total Protein 6.7 (6.3-8.2) g/dL Albumin 3.9 (3.5-5.0) g/dL Current Medications Generic Name Dose Route Start Last Admin Trade Name Freq PRN Reason Stop Dose Admin Albuterol/Ipratropium 3 ml 09/07/18 10:02 09/07/18 11:49 Duoneb 0.5 Mg-3 Mg/3 Ml Soln INHALATION 3 ml RT-QID PRN Administration sob Aspirin 81 mg 09/07/18 10:15 09/07/18 11:14 Aspirin PO 81 mg DAILY [facility] Administration Atorvastatin Calcium 20 mg 09/07/18 21:00 Lipitor PO HS [facility] Furosemide 40 mg 09/07/18 10:15 09/07/18 11:14 Lasix IV 40 mg Q12HR [facility] Administration Heparin Sodium (Porcine) 0 unit 09/07/18 06:13 Heparin IV PER PROTOCOL PRN Low PTT Protocol Diltiazem HCl 125 mg/ Sodium 125 mls @ 5 mls/hr 09/06/18 23:30 09/07/18 09:15 Chloride IV 15 ml/hr .Q24H [facility] 15 mls/hr Administration Protocol Per Protocol Heparin Sodium/Sodium Chloride 250 mls @ 10.024 mls/hr 09/07/18 06:15 0 09/07/18 06:39 25,000 unit/ Sodium Chloride IV 6.78 units/kg/hr .Q24H [facility] 10 mls/hr Administration Protocol 6.8 UNITS/KG/HR Vancomycin HCl 2,000 mg/ 500 mls @ 167 mls/hr 09/07/18 09:00 09/07/18 09:21 Sodium Chloride IVPB 167 mls/hr Q12H [facility] Administration Insulin Aspart 0 unit 09/07/18 12:30 09/07/18 12:29 Novolog SQ Not Given ACHS [facility] Protocol Linagliptin 5 mg 09/08/18 09:00 Tradjenta PO DAILY [facility] Metformin HCl 1,000 mg 09/07/18 10:15 09/07/18 11:14 Glucophage PO 1,000 mg AC-BRKFST [facility] Administration Metformin HCl 1,500 mg 09/07/18 17:30 Glucophage PO AC-SUPPER [facility] Montelukast Sodium 10 mg 09/07/18 21:00 Singulair PO HS [facility] Multivitamins 1 each 09/07/18 10:15 09/07/18 11:13 Theragran PO 1 each DAILY [facility] Administration Naloxone HCl 0.2 mg 09/07/18 06:11 Narcan IV Q2M PRN Opioid Reversal Potassium Chloride 20 meq 09/07/18 10:15 09/07/18 11:14 K-Dur 20 PO 20 meq BID [facility] Administration Senna/Docusate Sodium 1 each 09/07/18 10:15 09/07/18 11:14 Senokot-S PO 1 each BID [facility] Administration Tramadol HCl 50 mg 09/07/18 10:04 09/07/18 11:13 Ultram PO 50 mg Q4H PRN Administration Pain Control Tramadol HCl 100 mg 09/07/18 10:04 Ultram PO Q4H PRN Severe Pain Verapamil HCl 180 mg 09/07/18 11:00 09/07/18 11:13 Isoptin Sr PO 180 mg DAILY [facility] Administration Intake and Output 09/07/18 09/07/18 09/07/18 06:59 14:59 22:59 Intake Total 13.084 1364.25 Output Total 1200 Balance 13.084 164.25 Intake: Intake, IV Titration 13.084 1104.25 Amount Diltiazem 125 mg In 13.084 104.25 Sodium Chloride 0.9% 100 ml @ Per Protocol 5 mls/ hr IV .Q24H [facility] Rx#: [id number] Vancomycin 2,000 mg In 1000 Sodium Chloride 0.9% 500 ml 500 ml @ 167 mls/hr IVPB Q12H [facility] Rx#: [id number] Oral 260 Output: Urine 1200 Other: Voiding Method Toilet Urinal # Voids 3 09/07/18 09:14 09/06/18 23:20
[2018-09-07 17:01] LABS: Glucose,Whole Blood 137 mg/dL (75-99)
[2018-09-07] MEDS: AMPICILLIN-SULBACTAM 3 GM in SODIUM CHLORIDE 0.9% 100 ML IVPB SCH ×2 (17:10→23:44)
[2018-09-07] MEDS: NYSTATIN 100,000 UNIT/GM POWD 15 GM TOPICAL SCH ×2 (17:12→20:42)
[2018-09-07 20:31] LABS: Glucose,Whole Blood 136 mg/dL (75-99)
[2018-09-07] MEDS: MONTELUKAST 10 MG TAB PO SCH (20:39)
[2018-09-07] MEDS: ATORVASTATIN 20 MG TAB PO SCH (20:39)
--- NOTE | 2018-09-07 21:56 | P.CONS ---
History of Present Illness - Reason for Consult Consult date: 09/07/18 - Chief Complaint shortness of breath - History of Present Illness 72-year-old male who has a long-standing history of obesity, cardiac dysrhythmia, and lower extremity edema who 3 years ago he had significant medical illness and was initiated to medications including anticoagulation. I mprovement in the last 3 years he is not taking anticoagulation and is not taking many of his medications. He now presents with increasing lower extremity edema he has atrial fibrillation with a flutter increasing shortness of breath and congestive heart failure. Consult is requested regarding her lower extremity edema as well as abdominal wall pain erythema and tenderness. The patient relates he's had difficulties in lower extremity edema over time but now has some edema to his abdominal wall it is become quite tender to touch. He's had fever and has felt quite poorly overall. Review of Systems atient relates to feeling poorly wi and abdominal pain HEENT:Denies headache or acute visual change. Denies sinus or mouth discomforts. Denies neck stiffness or pain. Denies significant oral cavity pain. Denies difficulty on swallowing. Lungs: Denies significant shortness of breath, cough, sputum production, or hemoptysis. Cardiovascular: Denies significant shortness of breath, chest pain, chest wall pain, orthopnea, dyspnea on exertion, syncope Gastrointestinal:Denies nausea, vomiting, diarrhea, constipation, hematemesis, melena, hematochezia. No no significant change of bowel habit noticed.but does have abdominal pain on the abdominal wall itself. Musculoskeletal: he has chronic musculoskeletal pain lower extremity edema. Skin: Has evidence of bilateral lower extremity edema with some erythema, he has the erythema and tenderness to the abdominal wall. Neuro: Denies headache or visual change. Denies any new onset weakness or difficulty with ambulation. Denies falls or seizures. Psychiatric:Denies anxiety or depression. Endocrine: chronic fatigue weight gain Past Medical History Past Medical History: Atrial Fibrillation, Asthma, Blood Disorder, Chest Pain / Angina, COPD, GERD/Reflux, Hyperlipidemia, Hypertension, Skin Disorder, Sleep Apnea/CPAP/BIPAP Additional Past Medical History / Comment(s): psoriasis, hemoglobin [place] with polycythemia, pericardial effusion, hx hiatal hernia, hx bowel obstruction, uses oxygen 2L at , 09/07/2018-cellulitis History of Any Multi-Drug Resistant Organisms: None Reported Past Surgical History: Appendectomy, Hernia Repair Additional Past Surgical History / Comment(s): Laparoscopic lucia fundloplasty and mesh repair of hiatal hernia. arthroscopy left knee Past Anesthesia/Blood Transfusion Reactions: Motion Sickness Additional Past Anesthesia/Blood Transfusion Reaction / Comm: . Past Psychological History: No Psychological Hx Reported Additional Psychological History / Comment(s): PT LIVES WITH . uses cane for ambulation. retired. No travel. No experience. No animals Smoking Status: Former smoker Past Alcohol Use History: None Reported Additional Past Alcohol Use History / Comment(s): STARTED SMOKING 1962 AND quit smoking 2014. SMOKED 1 PPD Past Drug Use History: None Reported - Past Family History Sister(s) Family Medical History: Deep Vein Thrombosis (DVT) Brother(s) Family Medical History: Myocardial Infarction (OR) Additional Family Medical History / Comment(s): Brother had a OR at age 71 yrs. Father Family Medical History: Cancer Additional Family Medical History / Comment(s): . Mother Family Medical History: Cancer Additional Family Medical History / Comment(s): . Medications and Allergies Home Medications and Allergies Comment(s): Current Medications Albuterol/Ipratropium (Duoneb 0.5 Mg-3 Mg/3 Ml Soln) 3 ml INHALATION RT-QID PRN PRN Reason: sob Last Admin: 09/07/18 20:04 Dose: 3 ml Documented by: Aspirin (Aspirin) 81 mg PO DAILY [facility] Last Admin: 09/07/18 11:14 Dose: 81 mg Documented by: Atorvastatin Calcium (Lipitor) 20 mg PO HS [facility] Last Admin: 09/07/18 20:39 Dose: 20 mg Documented by: Furosemide (Lasix) 40 mg IV Q12HR [facility] Last Admin: 09/07/18 20:40 Dose: 40 mg Documented by: Heparin Sodium (Porcine) (Heparin) 0 unit IV PER PROTOCOL PRN; Protocol PRN Reason: Low PTT Diltiazem HCl 125 mg/ Sodium (Chloride) 125 mls @ 5 mls/hr IV .Q24H [facility]; Protocol Last Admin: 09/07/18 09:15 Dose: 15 ml/hr, 15 mls/hr Documented by: Heparin Sodium/Sodium Chloride (25,000 unit/ Sodium Chloride) 250 mls @ 10.024 mls/hr IV .Q24H [facility]; Protocol Last Admin: 09/07/18 06:39 Dose: 6.78 units/kg/hr, 10 mls/hr Documented by: Vancomycin HCl 2,000 mg/ (Sodium Chloride) 500 mls @ 167 mls/hr IVPB Q12H [facility] Last Admin: 09/07/18 20:42 Dose: 167 mls/hr Documented by: Ampicillin Sodium/Sulbactam (Sodium 3 gm/ Sodium Chloride) 100 mls @ 200 mls/hr IVPB Q6HR [facility] Last Admin: 09/07/18 17:10 Dose: 200 mls/hr Documented by: Insulin Aspart (Novolog) 0 unit SQ ACHS [facility]; Protocol Last Admin: 09/07/18 20:40 Dose: 1 unit Documented by: Linagliptin (Tradjenta) 5 mg PO DAILY [facility] Metformin HCl (Glucophage) 1,000 mg PO AC-BRKFST [facility] Last Admin: 09/07/18 11:14 Dose: 1,000 mg Documented by: Metformin HCl (Glucophage) 1,500 mg PO AC-SUPPER [facility] Last Admin: 09/07/18 17:10 Dose: 1,500 mg Documented by: Montelukast Sodium (Singulair) 10 mg PO HS [facility] Last Admin: 09/07/18 20:39 Dose: 10 mg Documented by: Multivitamins (Theragran) 1 each PO DAILY [facility] Last Admin: 09/07/18 11:13 Dose: 1 each Documented by: Naloxone HCl (Narcan) 0.2 mg IV Q2M PRN PRN Reason: Opioid Reversal Nystatin (Mycostatin Powder) 1 applic TOPICAL TID [facility] Last Admin: 09/07/18 20:42 Dose: 1 applic Documented by: Potassium Chloride (K-Dur 20) 20 meq PO BID [facility] Last Admin: 09/07/18 20:39 Dose: 20 meq Documented by: Senna/Docusate Sodium (Senokot-S) 1 each PO BID [facility] Last Admin: 09/07/18 20:39 Dose: 1 each Documented by: Tramadol HCl (Ultram) 50 mg PO Q4H PRN PRN Reason: Pain Control Last Admin: 09/07/18 11:13 Dose: 50 mg Documented by: Tramadol HCl (Ultram) 100 mg PO Q4H PRN PRN Reason: Severe Pain Verapamil HCl (Isoptin Sr) 180 mg PO DAILY [facility] Last Admin: 09/07/18 11:13 Dose: 180 mg Documented by: Home Medications Medication Instructions Recorded Confirmed Type Multivitamin [Men's Multi-Vitamin] 1 tab PO DAILY 10/08/14 09/07/18 History Aspirin EC [Ecotrin Low Dose] 81 mg PO DAILY #0 tablet. 01/11/15 09/07/18 Rx Atorvastatin [Lipitor] 20 mg PO HS #30 tab 01/11/15 09/07/18 Rx Montelukast [Singulair] 10 mg PO HS #30 tab 01/11/15 09/07/18 Rx Furosemide [Lasix] 40 mg PO BID 11/12/15 09/07/18 History Potassium Chloride [K-Tab ER] 20 meq PO BID 11/12/15 09/07/18 History Albuterol Sulfate [Proair 1 puff INHALATION RT-BID 01/08/17 09/07/18 History Respiclick] Ipratropium-Albuterol Nebulize 3 ml INHALATION RT-QID PRN 01/08/17 09/07/18 History [Duoneb 0.5 mg-3 mg/3 ml Soln] Sennosides-Docusate Sodium 1 tab PO BID #60 tablet 01/14/17 09/07/18 Rx [Senokot-S] Ferrous Sulfate [Feosol] 325 mg PO DAILY 09/07/18 09/07/18 History Meloxicam [Mobic] 15 mg PO DAILY 09/07/18 09/07/18 History Umeclidinium Brm/Vilanterol Tr 1 puff INHALATION RT-DAILY 09/07/18 09/07/18 History [Anoro Ellipta 62.5-25 Mcg INH] metFORMIN HCL 1,000 mg PO AC-BRKFST 09/07/18 09/07/18 History metFORMIN HCL 1,500 mg PO AC-SUPPER 09/07/18 09/07/18 History sitaGLIPtin [Januvia] 100 mg PO DAILY 09/07/18 09/07/18 History Allergies Allergy/AdvReac Type Severity Reaction Status Date / Time acetaminophen [From [place]] AdvReac see Verified 09/07/18 11:15 comments hydrocodone [From [place]] AdvReac see Verified 09/07/18 11:15 comments warfarin [From Coumadin] AdvReac SEE Verified 09/07/18 11:15 COMMENTS Physical Exam Vitals: Vital Signs Temp Pulse Pulse Resp BP BP Pulse Ox 09/07/18 20:09 89 09/07/18 19:58 90 09/07/18 15:44 74 24 09/07/18 15:43 98.3 F 74 24 98/62 99 09/07/18 15:36 96 09/07/18 15:28 99 09/07/18 12:03 100 09/07/18 12:00 97.6 F 58 L 20 119/73 09/07/18 11:53 104 H 09/07/18 11:33 103 H 24 09/07/18 10:07 97.8 F 139 H 24 136/84 100 09/07/18 07:58 98.2 F 115 H 22 110/73 99 09/07/18 07:53 113 H 18 09/07/18 06:45 98 F 09/07/18 06:25 97.7 F 98 18 115/70 99 09/07/18 05:56 114 H 21 126/83 98 09/07/18 05:25 126 H 21 110/83 99 09/07/18 04:30 97.3 F L 114 H 21 118/75 99 09/07/18 03:30 112 H 19 127/101 99 09/07/18 03:17 97.9 F 113 H 22 98/76 97 09/07/18 02:30 129 H 21 101/77 99 09/07/18 02:18 129 H 09/07/18 01:53 138 H 09/07/18 01:30 135 H 21 134/85 99 09/07/18 00:30 97.4 F L 138 H 20 129/91 99 09/06/18 23:24 97.6 F 144 H 26 H 128/97 98 09/06/18 22:18 98.0 F 135 H 22 153/80 97 Intake and Output 09/07/18 09/07/18 09/07/18 06:59 14:59 22:59 Intake Total 13.084 1364.25 222 Output Total 1200 850 Balance 13.084 164.25 -628 Intake: Intake, IV Titration 13.084 1104.25 Amount Diltiazem 125 mg In 084 104.25 Sodium Chloride 0.9% 100 ml @ Per Protocol 5 mls/ hr IV .Q24H [facility] Rx#: [id number] Vancomycin 2,000 mg In 1000 Sodium Chloride 0.9% 500 ml 500 ml @ 167 mls/hr IVPB Q12H [facility] Rx#: [id number] Oral 260 222 Output: Urine 1200 850 Other: Voiding Method Toilet Toilet Urinal Urinal # Voids 3 2 72-year-old male who has significant is uncomfortable. HEENT: Anicteric conjunctiva are pink and moist nasal mucosa grossly intact without significant lesions, there is no thrush. Neck: The neck is supple without significant lymphadenopathy or thyromegaly. Lungs: Symmetrical bilateral air entry with basilar crackles expiratory wheezes are scattered Heart: Irregularly irregular audible S1 and S2 soft S4 no distinct murmur click or rub PMI is nonpalpable Abdomen: Obese, Positive bowel sounds soft without palpable masses or organomegaly. There was no guarding or rebound. There is dense erythema in the abdominal wall that extends from about the midpoint down through the pannus, is tender, there is thickening to the tissue there is no significant open ulceration though. Extremities: The upper extremities have excellent pulses they are symmetric, no significant petechiae or telangiectasia. No splinter hemorrhages were noted. The lower extremities have bilateral lower extremity edema there is some mild erythema and there is evidence of oozing of fluid. Neuro: Awake alert oriented to person place and time. There are no acute new gross focal sensory motor deficits. Results CBC & Chem 7: 09/07/18 09:14 09/06/18 23:20 Labs: Abnormal Lab Results - Last 24 Hours (Table) 09/06/18 09/07/18 09/07/18 Range/Units 23:20 02:02 02:02 Hgb 8.7 L (13.0-17.5) gm/dL Hct 31.3 L (39.0-53.0) % MCV 69.1 L (80.0-100.0) fL MCH 19.2 L (25.0-35.0) pg MCHC 27.8 L (31.0-37.0) g/dL RDW 19.0 H (11.5-15.5) % Lymphocytes # 0.9 L (1.0-4.8) k/uL APTT (22.0-30.0) sec D-Dimer (<0.60) mg/L FEU Sodium 132 L (137-145) mmol/L Carbon Dioxide 21 L (22-30) mmol/L Glucose 105 H (74-99) mg/dL POC Glucose (mg/dL) (75-99) mg/dL AST 68 H (17-59) U/L Urine Protein Trace H (Negative) 09/07/18 09/07/18 09/07/18 Range/Units 03:50 09:14 09:14 Hgb 8.9 L 9.3 L (13.0-17.5) gm/dL Hct 32.6 L 34.3 L (39.0-53.0) % MCV 69.1 L 72.0 L (80.0-100.0) fL MCH 18.9 L 19.5 L (25.0-35.0) pg MCHC 27.4 L 27.1 L (31.0-37.0) g/dL RDW 18.9 H 18.1 H (11.5-15.5) % Lymphocytes # 0.8 L (1.0-4.8) k/uL APTT 34.7 H (22.0-30.0) sec D-Dimer 0.75 H (<0.60) mg/L FEU Sodium (137-145) mmol/L Carbon Dioxide (22-30) mmol/L Glucose (74-99) mg/dL POC Glucose (mg/dL) (75-99) mg/dL AST (17-59) U/L Urine Protein (Negative) 09/07/18 09/07/18 09/07/18 Range/Units 11:44 16:58 20:29 Hgb (13.0-17.5) gm/dL Hct (39.0-53.0) % MCV (80.0-100.0) fL MCH (25.0-35.0) pg MCHC (31.0-37.0) g/dL RDW (11.5-15.5) % Lymphocytes # (1.0-4.8) k/uL APTT (22.0-30.0) sec D-Dimer (<0.60) mg/L FEU Sodium (137-145) mmol/L Carbon Dioxide (22-30) mmol/L Glucose (74-99) mg/dL POC Glucose (mg/dL) 129 H 137 H 136 H (75-99) mg/dL AST (17-59) U/L Urine Protein (Negative) Microbiology - Last 24 Hours (Table) 09/07/18 02:02 Urine Culture - Preliminary Urine,Voided Laboratory Results WBC 7.0 k/uL (3.8-10.6) 09/07/18 09:14 RBC 4.77 m/uL (4.30-5.90) 09/07/18 09:14 Hgb 9.3 gm/dL (13.0-17.5) L 09/07/18 09:14 Hct 34.3 % (39.0-53.0) L 09/07/18 09:14 MCV 72.0 fL (80.0-100.0) L 09/07/18 09:14 MCH 19.5 pg (25.0-35.0) L 09/07/18 09:14 MCHC 27.1 g/dL (31.0-37.0) L 09/07/18 09:14 RDW 18.1 % (11.5-15.5) H 09/07/18 09:14 Plt Count 241 k/uL (150-450) 09/07/18 09:14 Neutrophils % 79 % 09/07/18 09:14 Lymphocytes % 11 % 09/07/18 09:14 Monocytes % 6 % 09/07/18 09:14 Eosinophils % 2 % 09/07/18 09:14 Basophils % 0 % 09/07/18 09:14 Neutrophils # 5.5 k/uL (1.3-7.7) 09/07/18 09:14 Lymphocytes # 0.8 k/uL (1.0-4.8) L 09/07/18 09:14 Monocytes # 0.4 k/uL (0-1.0) 09/07/18 09:14 Eosinophils # 0.1 k/uL (0-0.7) 09/07/18 09:14 Basophils # 0.0 k/uL (0-0.2) 09/07/18 09:14 Hypochromasia Marked 09/07/18 09:14 Poikilocytosis Moderate 09/07/18 09:14 Anisocytosis Slight 09/07/18 09:14 Microcytosis Moderate 09/07/18 09:14 PT 10.9 sec (9.0-12.0) 09/07/18 09:14 INR 1.0 (<1.2) 09/07/18 09:14 APTT 29.6 sec (22.0-30.0) 09/07/18 15:49 D-Dimer 0.75 mg/L FEU (<0.60) H 09/07/18 09:14 Sodium 132 mmol/L (137-145) L 09/06/18 23:20 Potassium 4.8 mmol/L (3.5-5.1) 09/06/18 23:20 Chloride 98 mmol/L (98-107) 09/06/18 23:20 Carbon Dioxide 21 mmol/L (22-30) L 09/06/18 23:20 Anion Gap 13 mmol/L 09/06/18 23:20 BUN 12 mg/dL (9-20) 09/06/18 23:20 Creatinine 0.75 mg/dL (0.66-1.25) 09/06/18 23:20 Est GFR (CKD-EPI)AfAm >90 (>60 ml/min/1.73 sqM) 09/06/18 23:20 Est GFR (CKD-EPI)NonAf >90 (>60 ml/min/1.73 sqM) 09/06/18 23:20 Glucose 105 mg/dL (74-99) H 09/06/18 23:20 POC Glucose (mg/dL) 136 mg/dL (75-99) H 09/07/18 20:29 POC Glu Clinic Office Coordinator ID Irineo Starr 09/07/18 20:29 Plasma Lactic Acid Roberto 1.7 mmol/L (0.7-2.0) 09/06/18 23:20 Calcium 8.4 mg/dL (8.4-10.2) 09/06/18 23:20 Magnesium 2.1 mg/dL (1.6-2.3) 09/06/18 23:20 Total Bilirubin 0.6 mg/dL (0.2-1.3) 09/06/18 23:20 AST 68 U/L (17-59) H 09/06/18 23:20 ALT 29 U/L (21-72) 09/06/18 23:20 Alkaline Phosphatase 93 U/L (38-126) 09/06/18 23:20 Troponin I <0.012 ng/mL (0.000-0.034) 09/06/18 23:20 NT-Pro-B Natriuret Pep 1070 pg/mL 09/07/18 02:02 Total Protein 6.7 g/dL (6.3-8.2) 09/06/18 23:20 Albumin 3.9 g/dL (3.5-5.0) 09/06/18 23:20 TSH 0.790 mIU/L (0.465-4.680) 09/07/18 09:14 Urine Color Yellow 09/07/18 02:02 Urine Appearance Clear (Clear) 09/07/18 02:02 Urine pH 5.5 (5.0-8.0) 09/07/18 02:02 Ur Specific [place] 1.018 (1.001-1.035) 09/07/18 02:02 Urine Protein Trace (Negative) H 09/07/18 02:02 Urine Glucose (UA) Negative (Negative) 09/07/18 02:02 Urine Ketones Negative (Negative) 09/07/18 02:02 Urine Blood Negative (Negative) 09/07/18 02:02 Urine Nitrite Negative (Negative) 09/07/18 02:02 Urine Bilirubin Negative (Negative) 09/07/18 02:02 Urine Urobilinogen <2.0 mg/dL (<2.0) 09/07/18 02:02 Ur Leukocyte Esterase Negative (Negative) 09/07/18 02:02 Blood Type O Positive 09/07/18 03:50 Blood Type Confirm O Positive 09/07/18 02:02 Blood Type Recheck CABO Indicated 09/07/18 03:50 Antibody Screen NEGATIVE 09/07/18 03:50 Spec Expiration Date 09/10/2018 - 234909/07/18 03:50 Microbiology 09/07/18 02:02 Urine,Voided Urine Culture - Preliminary Assessment and Plan (1) Acute exacerbation of chronic obstructive airways disease Current Visit: Yes Status: Acute Code(s): J44.1 - CHRONIC OBSTRUCTIVE PULMONARY DISEASE W (ACUTE) EXACERBATION SNOMED Code(s): 522673141 (2) Atrial flutter Current Visit: Yes Status: Acute Code(s): I48.92 - UNSPECIFIED ATRIAL FLUTTER SNOMED Code(s): 2808064 (3) Congestive heart failure Current Visit: Yes Status: Acute Code(s): I50.9 - HEART FAILURE, UNSPECIFIED SNOMED Code(s): 17335927 (4) Cellulitis of abdominal wall Narrative/Plan: 72-year-old male has a long-standing history of multiple medical troubles include his obesity, congestive heart failure, atrial fibrillation not on anticoagulation or most medicines. The patient presents with significant volume overload with lower extremity edema and edema to his abdominal wall. Evidence of atrial fibrillation is not being treated with Cardizem and is being anticoagulated. There is evidence of the distinct erythema to the abdominal wall and antibiotic therapy was started with vancomycin over Unasyn was also added. This is for coverage to potential gram-negative organisms especially since there is some lower extremity erythema and drainage which is concerning given his underlying diabetes mellitus. Primary service is working to try to improve compliance with medications at discharge to improve status. Current Visit: Yes Status: Acute Code(s): L03.311 - CELLULITIS OF ABDOMINAL WALL SNOMED Code(s): 56282420
[2018-09-08] MEDS: traMADol 50 MG TAB PO PRN ×3 (05:42→23:00)
[2018-09-08] MEDS: HEPARIN SOD,PORK IN 0.45% NACL 25,000 UNIT in 0.45% NACL 1 250ML.BAG IV SCH ×2 (05:49→23:01)
[2018-09-08] MEDS: AMPICILLIN-SULBACTAM 3 GM in SODIUM CHLORIDE 0.9% 100 ML IVPB SCH ×3 (05:52→17:21)
[2018-09-08] MEDS: metFORMIN 500 MG TAB PO SCH ×2 (06:26→17:23)
[2018-09-08] MEDS: VERAPAMIL SR 180 MG TABLET.ER PO SCH (06:26)
[2018-09-08] MEDS: INSULIN ASPART (NovoLOG) 100 UNIT/ML VIAL SQ SCH ×4 (06:30→20:46)
[2018-09-08 06:31] LABS: Glucose,Whole Blood 121 mg/dL (75-99)
[2018-09-08 07:56] LABS: Anisocytosis Slight; Basophils % (A) 0 %; Eosinophils # (A) 0.1 k/uL (0-0.7); Eosinophils % (A) 1 %; HCT 32.3 % (39.0-53.0); HGB 8.7 gm/dL (13.0-17.5); Hypochromasia Marked; Lymphocytes # (A) 0.8 k/uL (1.0-4.8); Lymphocytes % (A) 13 %; MCH 19.3 pg (25.0-35.0); MCV 71.6 fL (80.0-100.0); Mean Platelet Volume 6.6; Microcytosis Marked; Monocytes # (A) 0.4 k/uL (0-1.0); Monocytes % (A) 6 %; Neutrophils # (A) 4.8 k/uL (1.3-7.7); Neutrophils % (A) 77 %; Platelet Count 235 k/uL (150-450); Poikilocytosis Moderate; RBC 4.52 m/uL (4.30-5.90); RDW 18.3 % (11.5-15.5); WBC 6.3 k/uL (3.8-10.6)
[2018-09-08 08:02] LABS: African American GFR (CKD) >90 (>60 ml/min/1.73 sqM)
[2018-09-08] MEDS: VANCOMYCIN 2,000 MG in SODIUM CHLORIDE 0.9% 500 ML 500 ML IVPB SCH ×2 (08:48→20:52)
[2018-09-08] MEDS: MULTIVITAMINS, THERA 1 EACH TAB PO SCH (08:49)
[2018-09-08] MEDS: NYSTATIN 100,000 UNIT/GM POWD 15 GM TOPICAL SCH ×3 (08:49→20:52)
[2018-09-08] MEDS: SENNOSIDES-DOCUSATE SODIUM 1 EACH TAB PO SCH ×2 (08:49→20:50)
[2018-09-08] MEDS: LINAGLIPTIN 5 MG TABLET PO SCH (08:49)
[2018-09-08] MEDS: FUROSEMIDE 10 MG/ML 4 ML VIAL IV SCH (08:49)
[2018-09-08] MEDS: ASPIRIN 81 MG PO SCH (08:49)
[2018-09-08] MEDS: POTASSIUM CHLORIDE ER 20 MEQ TAB.ER PO SCH ×2 (08:49→20:50)
--- NOTE | 2018-09-08 10:43 | ECHOF ---
Referral Reason:SOB, Edema, HF MEASUREMENTS -------- HEIGHT: 180.3 cm WEIGHT: 151.5 kg BP: 148/74 RVIDd: 3.9 cm (< 3.3) IVSd: 1.5 cm (0.6 - 1.1) LVIDd: 4.9 cm (3.9 - 5.3) LVPWd: 1.6 cm (0.6 - 1.1) IVSs: 2.0 cm LVIDs: 3.8 cm LVPWs: 1.9 cm LA Diam: 4.6 cm (2.7 - 3.8) LAESV Index (A-L): 42.01 ml/m Ao Diam: 3.3 cm (2.0 - 3.7) AV Cusp: 1.9 cm (1.5 - 2.6) MV EXCURSION: 14.794 mm (> 18.000) MV EF SLOPE: 110 mm/s (70 - 150) EPSS: 0.5 cm RAP: 15.00 mmHg RVSP: 44.14 mmHg FINDINGS -------- Atrial fibrillation. This was a technically difficult study with suboptimal views. The left ventricular size is normal. There is moderate concentric left ventricular hypertrophy. O verall left ventricular systolic function is normal with, an EF between 55 - 60 %. The right ventricle is moderately enlarged. LA is severely dilated >40 ml/m2 The right atrium was not well visualized. 5 ml of Lumason was utilized for enhancement of images. Interatrial and interventricular septum intact. The aortic valve was not well visualized. The mitral valve was not well visualized. Mild tricuspid regurgitation present. There is mild pulmonary hypertension. The right ventricular systolic pressure, as measured by Doppler, is 44.14mmHg. The pulmonic valve was not well visualized. The aortic root size is normal. The inferior vena cava is dilated with no significant inspiratory collapse which is consistent estima obie right atrial pressure of >15 mmHg. There is no pericardial effusion. CONCLUSIONS -------- 1. Atrial fibrillation. 2. This was a technically difficult study with suboptimal views. 3. The left ventricular size is normal. 4. There is moderate concentric left ventricular hypertrophy. 5. Overall left ventricular systolic function is normal with, an EF between 55 - 60 %. 6. The right ventricle is moderately enlarged. 7. LA is severely dilated >40 ml/m2 8. The right atrium was not well visualized. 9. 5 ml of Lumason was utilized for enhancement of images. 10. Interatrial and interventricular septum intact. 11. The aortic valve was not well visualized. 12. The mitral valve was not well visualized. 13. Mild tricuspid regurgitation present. 14. There is mild pulmonary hypertension. 15. The right ventricular systolic pressure, as measured by Doppler, is 44.14mmHg. 16. The pulmonic valve was not well visualized. 17. The aortic root size is normal. 18. The inferior vena cava is dilated with no significant inspiratory collapse which is consistent es timated right atrial pressure of >15 mmHg. 19. There is no pericardial effusion. POUNCER: Kezia Estes RDCS
[2018-09-08] MEDS ORDERED: VERAPAMIL SR 240 MG TABLET.ER PO SCH (11:45)
[2018-09-08] MEDS: IPRATROPIUM-ALBUTEROL 3 ML NEB INHALATION PRN ×2 (11:45→19:56)
[2018-09-08 11:55] LABS: Glucose,Whole Blood 119 mg/dL (75-99)
[2018-09-08] MEDS: SPIRONOLACTONE 25 MG TAB PO SCH ×2 (13:07→20:51)
[2018-09-08] MEDS: FUROSEMIDE 100 MG in SODIUM CHLORIDE 0.9% 90 ML IV SCH ×2 (13:07→21:02)
[2018-09-08] MEDS: HEPARIN SODIUM,PORCINE 5,000 UNIT/ML 1 ML VIAL IV PRN (14:10)
--- NOTE | 2018-09-08 14:46 | P.PN ---
Subjective Progress Note Date: 09/08/18 The patient is a 72-year-old male with past medical history of COPD, hypertension, diabetes, dyslipidemia who presented with complaints of increased edema. States he has had increasing edema in his legs extending up to his abdomen over the last few days. Has also had worsening shortness of breath with exertion. Denies any chest pain, palpitations, dizziness, lightheadedness, syncope. EKG showed atrial tachycardia with RVR. He has a questionable history of atrial fibrillation and states he was on warfarin 3 years ago but had to be taken because" his blood became too thin". He is a patient of Dr. Wasserman. He was started on IV Cardizem and IV heparin. He continues to be atrial flutter heart rate in the 90s low 100s. Blood pressure 105/70 with a heart rate of 80, 93% on 2 L of oxygen. White blood cell count 6.3, hemoglobin 8.7, platelet count 235. Creatinine today 0.6. Objective - Vital Signs Vital signs: Vital Signs Temp 98.0 F 09/08/18 08:00 Pulse 82 09/08/18 12:00 Resp 20 09/08/18 12:00 BP 105/70 09/08/18 12:00 Pulse Ox 93 L 09/08/18 12:00 Intake & Output 09/07/18 09/08/18 09/08/18 18:59 06:59 18:59 Intake Total 1586.25 231.667 605.1 Output Total 1200 2300 625 Balance 386.25 -2068.333 -19.9 Weight 151.5 kg Intake: Intake, IV Titration 1104.25 231.667 99.1 Amount Diltiazem 125 mg In 104.25 Sodium Chloride 0.9% 100 ml @ Per Protocol 5 mls/ hr IV .Q24H [facility] Rx#: [id number] Heparin Sod,Pork in 0.45% 231.667 99.1 NaCl 25,000 unit In 0.45 % NaCl 1 250ml.bag @ 6.8 UNITS/KG/HR 10.024 mls/hr IV .Q24H [facility] Rx#: [id number] Vancomycin 2,000 mg In 1000 Sodium Chloride 0.9% 500 ml 500 ml @ 167 mls/hr IVPB Q12H [facility] Rx#: [id number] Oral 482 506 Output: Urine 1200 2300 625 Other: Voiding Method Toilet Toilet Urinal Urinal # Voids 3 1 2 - Exam PHYSICAL EXAMINATION: GENERAL: 72-year-old gentleman in no acute distress at the time of my examination HEENT: Head is atraumatic, normocephalic. Pupils equal, round. Sclera anicteric. Conjunctiva are clear. Mucous membranes of the mouth are moist. Neck is supple. There is elevated jugular venous pressure. No carotid bruit is heard. HEART EXAMINATION: S1 and S2 irregularly irregular a systolic murmur is heard CHEST EXAMINATION:'s reveal diminished air entry to bilateral bases ABDOMEN: Soft, obese, nontender. Bowel sounds are heard. No organomegaly noted. EXTREMITIES: 1+ peripheral pulses with 2-3+ evidence of peripheral edema and no calf tenderness noted. NEUROLOGIC patient is awake, alert and oriented 3 . . - Labs CBC & Chem 7: 09/08/18 07:18 09/08/18 07:18 Labs: Abnormal Lab Results - Last 24 Hours (Table) 09/07/18 09/07/18 09/07/18 Range/Units 16:58 20:29 23:10 Hgb (13.0-17.5) gm/dL Hct (39.0-53.0) % MCV (80.0-100.0) fL MCH (25.0-35.0) pg MCHC (31.0-37.0) g/dL RDW (11.5-15.5) % Lymphocytes # (1.0-4.8) k/uL APTT 47.2 H (22.0-30.0) sec POC Glucose (mg/dL) 137 H 136 H (75-99) mg/dL 09/08/18 09/08/18 09/08/18 Range/Units 06:29 07:18 07:18 Hgb 8.7 L (13.0-17.5) gm/dL Hct 32.3 L (39.0-53.0) % MCV 71.6 L (80.0-100.0) fL MCH 19.3 L (25.0-35.0) pg MCHC 27.0 L (31.0-37.0) g/dL RDW 18.3 H (11.5-15.5) % Lymphocytes # 0.8 L (1.0-4.8) k/uL APTT 30.2 H (22.0-30.0) sec POC Glucose (mg/dL) 121 H (75-99) mg/dL 09/08/18 09/08/18 Range/Units 11:54 13:20 Hgb (13.0-17.5) gm/dL Hct (39.0-53.0) % MCV (80.0-100.0) fL MCH (25.0-35.0) pg MCHC (31.0-37.0) g/dL RDW (11.5-15.5) % Lymphocytes # (1.0-4.8) k/uL APTT 31.5 H (22.0-30.0) sec POC Glucose (mg/dL) 119 H (75-99) mg/dL Microbiology - Last 24 Hours (Table) 09/07/18 02:02 Urine Culture - Final Urine,Voided 09/06/18 23:20 Blood Culture - Preliminary Blood No Growth after 24 hours Assessment and Plan Plan: Assessment and plan #1 atypical atrial flutter #2 hyperlipidemia #3 hypertension #4 COPD #5 diabetes #6 diastolic congestive heart failure acute on chronic Plan Patient has been initiated on IV Lasix drip as well as Aldactone. We will increase the verapamil SR to 360 mg daily, monitor intake and output along with daily weights and daily lytes BUN and creatinine. DNP note has been reviewed, I agree with a documented findings and plan of care. Patient was seen and examined.
--- NOTE | 2018-09-08 14:53 | P.PN ---
Subjective Progress Note Date: 09/08/18 This is 72 years old male with past medical history significant for chronic respiratory failure with hypoxia home oxygen dependent presented to the emergency department with shortness of breath. Patient stated normally he uses oxygen at the bedtime with his CPAP machine but don't use oxygen during the day as his saturation ranged between 89-92% on room air. Patient stated that his shortness breath has been worsening slowly and gradually with worsening lower extremity edema and today patient was having chest palpitation that he was concerned about and presented to the emergency department. Patient stated that his symptoms happened slowly and gradually was having difficulty laying in bed and stated that his been up sitting in his recliner all the time due to shortness breath. Patient stated that his lower extremity swelling has worsened despite taking Lasix 40 mg twice daily and stated that he's taking all his medication as his dispense to him. I spoke to the over the phone who stated that patient quit taking Coumadin 3 years ago after his knee surgery and easy bruising where the visiting nurse asked him to hold Coumadin and see clinical documentation specialist but they did not schedule appointment with clinical documentation specialist for the last 3 years at the time patient is well known to have atrial fibrill ation/flutter. Patient stated that his shortness breath has slightly improved since yesterday but still unable to sleep in bed complaining of lower extremity weakness denied any recent upper respiratory symptoms denying dysuria denying productive cough and stated that his oxygen need stated the same. Patient denying tobacco alcohol or drug abuse 09/08: Patient has been seen by cardiology for age and tachycardia with RVR possible atrial flutter with plan to continue heparin and start oral antic oagulation tomorrow. Verapamil 180 mg daily for rate control. Patient continues to have significant shortness of breath and edema for which we will transition IV Lasix to Lasix drip and Ativan and Aldactone 25 mg twice daily. The patient is concerned regarding erythema on the abdomen that does not have any open ulceration. Dr. Goodwin is on consult and managing antibiotics. He is currently on Unasyn and vancomycin. Patient has been afebrile, heart rate 88, blood pressure 128/69, pulse ox 94% on 2 L nasal cannula. WBC 6.3, hemoglobin 8.7, platelet count 235. Blood sugar 121, creatinine 0.66. Echocardiogram reveals EF of 55-60%, moderate concentric left ventricular hypertrophy, mild tricuspid regurgitation, mild pulmonary hypertension. Objective - Vital Signs Vital signs: Vital Signs Temp 98.0 F 09/08/18 08:00 Pulse 88 09/08/18 11:57 Resp 20 09/08/18 08:00 BP 128/69 09/08/18 08:00 Pulse Ox 94 L 09/08/18 08:00 Intake & Output 09/07/18 09/08/18 09/08/18 18:59 06:59 18:59 Intake Total 1586.25 231.667 304.5 Output Total 1200 2300 625 Balance 386.25 -2068.333 -320.5 Weight 151.5 kg Intake: Intake, IV Titration 1104.25 231.667 31.5 Amount Diltiazem 125 mg In 104.25 Sodium Chloride 0.9% 100 ml @ Per Protocol 5 mls/ hr IV .Q24H [facility] Rx#: [id number] Heparin Sod,Pork in 0.45% 231.667 31.5 NaCl 25,000 unit In 0.45 % NaCl 1 250ml.bag @ 6.8 UNITS/KG/HR 10.024 mls/hr IV .Q24H [facility] Rx#: [id number] Vancomycin 2,000 mg In 1000 Sodium Chloride 0.9% 500 ml 500 ml @ 167 mls/hr IVPB Q12H [facility] Rx#: [id number] Oral 482 273 Output: Urine 1200 2300 625 Other: Voiding Method Toilet Toilet Urinal Urinal # Voids 3 1 2 - Exam Review Of Systems: Constitutional: No fever, no chills, no night sweats. No weight change. Reports weakness, reports fatigue. EENT: No headache. No blurred vision or double vision, no loss of vision. No loss of Hearing, no ringing in the ears, no dizziness. No nasal drainage or congestion. No epistaxis. No sore throat. Lungs: Reports shortness of breath, cough, no sputum production. No wheezing. Cardiovascular: No chest pain, reports lower extremity edema. No palpitations. Abdominal: No abdominal pain. No nausea, vomiting. No diarrhea. No constipation. No bloody or tarry stools.. No loss of appetite. Genitourinary: No dysuria, increased frequency, urgency. No urinary retention. Musculoskeletal: No myalgias. No muscle weakness, no gait dysfunction, no frequent falls. No back pain. No neck pain. Integumentary: Reports wounds, no lesions. No rash or pruritus. Neurologic: No aphasia. No facial droop. No change in mentation. No head injury. No headache. No paralysis. No paresthesia. Psychiatric: No depression. No anxiety. No mood swings. Endocrine: No abnormal blood sugars. No weight change. No excessive sweating or thirst. Gen: This is a 72-year-old morbidly obese male. Patient is sitting in her recliner. HEENT: Head is atraumatic, normocephalic. Pupils equal, round. Sclerae is anicteric. NECK: Supple. No JVD. No lymphadenopathy. No thyromegaly. LUNGS: Clear to auscultation. No wheezes or rhonchi. No intercostal retractions. HEART: Irregular rate and rhythm. No murmur. ABDOMEN: Soft. Bowel sounds are present. No masses. No tenderness. Areas of erythema noted. EXTREMITIES: Bilateral pedal edema. No calf tenderness. NEUROLOGICAL: Patient is awake, alert and oriented x3. Cranial nerves 2 through 12 are grossly intact. - Labs CBC & Chem 7: 09/08/18 07:18 09/08/18 07:18 Labs: Abnormal Lab Results - Last 24 Hours (Table) 09/07/18 09/07/18 09/07/18 Range/Units 16:58 20:29 23:10 Hgb (13.0-17.5) gm/dL Hct (39.0-53.0) % MCV (80.0-100.0) fL MCH (25.0-35.0) pg MCHC (31.0-37.0) g/dL RDW (11.5-15.5) % Lymphocytes # (1.0-4.8) k/uL APTT 47.2 H (22.0-30.0) sec POC Glucose (mg/dL) 137 H 136 H (75-99) mg/dL 09/08/18 09/08/18 09/08/18 Range/Units 06:29 07:18 07:18 Hgb 8.7 L (13.0-17.5) gm/dL Hct 32.3 L (39.0-53.0) % MCV 71.6 L (80.0-100.0) fL MCH 19.3 L (25.0-35.0) pg MCHC 27.0 L (31.0-37.0) g/dL RDW 18.3 H (11.5-15.5) % Lymphocytes # 0.8 L (1.0-4.8) k/uL APTT 30.2 H (22.0-30.0) sec POC Glucose (mg/dL) 121 H (75-99) mg/dL 09/08/18 Range/Units 11:54 Hgb (13.0-17.5) gm/dL Hct (39.0-53.0) % MCV (80.0-100.0) fL MCH (25.0-35.0) pg MCHC (31.0-37.0) g/dL RDW (11.5-15.5) % Lymphocytes # (1.0-4.8) k/uL APTT (22.0-30.0) sec POC Glucose (mg/dL) 119 H (75-99) mg/dL Microbiology - Last 24 Hours (Table) 09/06/18 23:20 Blood Culture - Preliminary Blood No Growth after 24 hours 09/07/18 02:02 Urine Culture - Preliminary Urine,Voided Assessment and Plan Plan: 1. Atrial flutter with rapid ventricular response with history of paroxysmal atrial fibrillation. Cardizem drip was discontinued. Continue verapamil 360 mg daily. Continue heparin drip. 2. Dyspnea multifactorial 3. Acute diastolic heart failure. IV Lasix changed to Lasix drip, Aldactone 25 mg twice daily added. Continue aspirin 81 mg daily, Lipitor 20 mg daily. 4. Chronic hypoxic respiratory failure on home oxygen. 5. Severe COPD. 6. Debility and deconditioning. 7. Morbid obesity. 8. Hypertension, hypertensive cardiovascular disease. Continue verapamil 9. Noncompliance with home medication. 10. Obstructive sleep apnea. 11. Mild intermittent asthma, stable. 12. Hyperlipidemia. Continue statin. 13. GERD. 14. Cellulitis of abdominal wall. Continue Unasyn and vancomycin. 15. Diabetes mellitus type 2. Continue Tradjenta, metformin, insulin scale b efore meals and at bedtime. Discharge plan: To be determined Impression and plan of care have been directed as dictated by the signing physician. Loreta Convery nurse practitioner acting as scribe for signing physician.
[2018-09-08 16:58] LABS: Glucose,Whole Blood 104 mg/dL (75-99)
[2018-09-08 20:43] LABS: Glucose,Whole Blood 100 mg/dL (75-99)
[2018-09-08] MEDS: ATORVASTATIN 20 MG TAB PO SCH (20:49)
[2018-09-08] MEDS: MONTELUKAST 10 MG TAB PO SCH (20:49)
--- NOTE | 2018-09-08 22:20 | P.PN ---
Subjective Progress Note Date: 09/08/18 72-year-old male who has a long-standing history of obesity, cardiac dysrhythmia, and lower extremity edema who 3 years ago he had significant medical illness and was initiated to medications including anticoagulation. Improvement in the last 3 years he is not taking anticoagulation and is not taking many of his medications. He now presents with increasing lower extremity edema he has atrial fibrillation with a flutter increasing shortness of breath and congestive heart failure. Consult is requested regarding her lower extremity edema as well as abdominal wall pain erythema and tenderness. The patient relates he's had difficulties in lower extremity edema over time but now has some edema to his abdominal wall it is become quite tender to touch. He's had fever and has felt quite poorly overall. 09/08/2018 patient continues to feel quite poorly. Fever has improved but continues to have significant tenderness to his abdominal wall. He does relate that the intensity of the pain is improved. He is not having further significant fever chills or rigors. He does have shortness of breath but that seems to be improving slightly also. We're extremity edema seems to be improving with current treatments. Objective - Vital Signs Vital signs: Vital Signs Temp 98.1 F 09/08/18 20:00 Pulse 90 09/08/18 20:06 Resp 16 09/08/18 20:06 BP 122/74 09/08/18 20:00 Pulse Ox 92 L 09/08/18 20:00 Intake & Output 09/08/18 09/08/18 09/09/18 06:59 18:59 06:59 Intake Total 231.667 705.1 190.977 Output Total 2700 625 300 Balance -2468.333 80.1 -109.023 Weight 151.5 kg Intake: Intake, IV Titration 231.667 99.1 190.977 Amount Furosemide 100 mg In 79.167 Sodium Chloride 0.9% 90 ml @ 10 MG/HR 10 mls/hr IV .Q10H [facility] Rx#: [id number] Heparin Sod,Pork in 0.45% 231.667 99.1 111.81 NaCl 25,000 unit In 0.45 % NaCl 1 250ml.bag @ 6.8 UNITS/KG/HR 10.024 mls/hr IV .Q24H [facility] Rx#: [id number] Oral 606 Output: Urine 2700 625 300 Other: Voiding Method Toilet Toilet Urinal Urinal # Voids 1 2 1 # Bowel Movements 1 - Exam 72-year-old male who has significant is uncomfortable. HEENT: Anicteric conjunctiva are pink and moist nasal mucosa grossly intact without significant lesions, there is no thrush. Neck: The neck is supple without significant lymphadenopathy or thyromegaly. Lungs: Symmetrical bilateral air entry with basilar crackles expiratory wheezes are scattered Heart: Irregularly irregular audible S1 and S2 soft S4 no distinct murmur click or rub PMI is nonpalpable Abdomen: Obese, Positive bowel sounds soft without palpable masses or organomegaly. There was no guarding or rebound. There is dense erythema in the abdominal wall that extends from about the midpoint down through the pannus, is tender, there is thickening to the tissue there is no significant open ulceration though. Extremities: The upper extremities have excellent pulses they are symmetric, no significant petechiae or telangiectasia. No splinter hemorrhages were noted. The lower extremities have bilateral lower extremity edema there is some mild erythema and the oozing of tissue fluid has markedly improved today to the legs Neuro: Awake alert oriented to person place and time. There are no acute new gross focal sensory motor deficits. - Labs CBC & Chem 7: 09/08/18 07:18 09/08/18 07:18 Labs: Abnormal Lab Results - Last 24 Hours (Table) 09/07/18 09/08/18 09/08/18 Range/Units 23:10 06:29 07:18 Hgb 8.7 L (13.0-17.5) gm/dL Hct 32.3 L (39.0-53.0) % MCV 71.6 L (80.0-100.0) fL MCH 19.3 L (25.0-35.0) pg MCHC 27.0 L (31.0-37.0) g/dL RDW 18.3 H (11.5-15.5) % Lymphocytes # 0.8 L (1.0-4.8) k/uL APTT 47.2 H (22.0-30.0) sec POC Glucose (mg/dL) 121 H (75-99) mg/dL 09/08/18 09/08/18 09/08/18 Range/Units 07:18 11:54 13:20 Hgb (13.0-17.5) gm/dL Hct (39.0-53.0) % MCV (80.0-100.0) fL MCH (25.0-35.0) pg MCHC (31.0-37.0) g/dL RDW (11.5-15.5) % Lymphocytes # (1.0-4.8) k/uL APTT 30.2 H 31.5 H (22.0-30.0) sec POC Glucose (mg/dL) 119 H (75-99) mg/dL 09/08/18 09/08/18 09/08/18 Range/Units 16:56 19:42 20:41 Hgb (13.0-17.5) gm/dL Hct (39.0-53.0) % MCV (80.0-100.0) fL MCH (25.0-35.0) pg MCHC (31.0-37.0) g/dL RDW (11.5-15.5) % Lymphocytes # (1.0-4.8) k/uL APTT 44.4 H (22.0-30.0) sec POC Glucose (mg/dL) 104 H 100 H (75-99) mg/dL Microbiology - Last 24 Hours (Table) 09/07/18 02:02 Urine Culture - Final Urine,Voided 09/06/18 23:20 Blood Culture - Preliminary Blood No Growth after 24 hours Laboratory Results WBC 6.3 k/uL (3.8-10.6) 09/08/18 07:18 RBC 4.52 m/uL (4.30-5.90) 09/08/18 07:18 Hgb 8.7 gm/dL (13.0-17.5) L 09/08/18 07:18 Hct 32.3 % (39.0-53.0) L 09/08/18 07:18 MCV 71.6 fL (80.0-100.0) L 09/08/18 07:18 MCH 19.3 pg (25.0-35.0) L 09/08/18 07:18 MCHC 27.0 g/dL (31.0-37.0) L 09/08/18 07:18 RDW 18.3 % (11.5-15.5) H 09/08/18 07:18 Plt Count 235 k/uL (150-450) 09/08/18 07:18 Neutrophils % 77 % 09/08/18 07:18 Lymphocytes % 13 % 09/08/18 07:18 Monocytes % 6 % 09/08/18 07:18 Eosinophils % 1 % 09/08/18 07:18 Basophils % 0 % 09/08/18 07:18 Neutrophils # 4.8 k/uL (1.3-7.7) 09/08/18 07:18 Lymphocytes # 0.8 k/uL (1.0-4.8) L 09/08/18 07:18 Monocytes # 0.4 k/uL (0-1.0) 09/08/18 07:18 Eosinophils # 0.1 k/uL (0-0.7) 09/08/18 07:18 Basophils # 0.0 k/uL (0-0.2) 09/08/18 07:18 Hypochromasia Marked 09/08/18 07:18 Poikilocytosis Moderate 09/08/18 07:18 Anisocytosis Slight 09/08/18 07:18 Microcytosis Marked 09/08/18 07:18 PT 10.9 sec (9.0-12.0) 09/07/18 09:14 INR 1.0 (<1.2) 09/07/18 09:14 APTT 44.4 sec (22.0-30.0) H 09/08/18 19:42 D-Dimer 0.75 mg/L FEU (<0.60) H 09/07/18 09:14 Sodium 132 mmol/L (137-145) L 09/06/18 23:20 Potassium 4.8 mmol/L (3.5-5.1) 09/06/18 23:20 Chloride 98 mmol/L (98-107) 09/06/18 23:20 Carbon Dioxide 21 mmol/L (22-30) L 09/06/18 23:20 Anion Gap 13 mmol/L 09/06/18 23:20 BUN 12 mg/dL (9-20) 09/06/18 23:20 Creatinine 0.66 mg/dL (0.66-1.25) 09/08/18 07:18 Est GFR (CKD-EPI)AfAm >90 (>60 ml/min/1.73 sqM) 09/08/18 07:18 Est GFR (CKD-EPI)NonAf >90 (>60 ml/min/1.73 sqM) 09/08/18 07:18 Glucose 105 mg/dL (74-99) H 09/06/18 23:20 POC Glucose (mg/dL) 100 mg/dL (75-99) H 09/08/18 20:41 POC Glu Vehicle Operator Technician ID Bettina Hawthorne 09/08/18 20:41 Plasma Lactic Acid Roberto 1.7 mmol/L (0.7-2.0) 09/06/18 23:20 Calcium 8.4 mg/dL (8.4-10.2) 09/06/18 23:20 Magnesium 2.1 mg/dL (1.6-2.3) 09/06/18 23:20 Total Bilirubin 0.6 mg/dL (0.2-1.3) 09/06/18 23:20 AST 68 U/L (17-59) H 09/06/18 23:20 ALT 29 U/L (21-72) 09/06/18 23:20 Alkaline Phosphatase 93 U/L (38-126) 09/06/18 23:20 Troponin I <0.012 ng/mL (0.000-0.034) 09/06/18 23:20 NT-Pro-B Natriuret Pep 1070 pg/mL 09/07/18 02:02 Total Protein 6.7 g/dL (6.3-8.2) 09/06/18 23:20 Albumin 3.9 g/dL (3.5-5.0) 09/06/18 23:20 TSH 0.790 mIU/L (0.465-4.680) 09/07/18 09:14 Urine Color Yellow 09/07/18 02:02 Urine Appearance Clear (Clear) 09/07/18 02:02 Urine pH 5.5 (5.0-8.0) 09/07/18 02:02 Ur Specific [place] 1.018 (1.001-1.035) 09/07/18 02:02 Urine Protein Trace (Negative) H 09/07/18 02:02 Urine Glucose (UA) Negative (Negative) 09/07/18 02:02 Urine Ketones Negative (Negative) 09/07/18 02:02 Urine Blood Negative (Negative) 09/07/18 02:02 Urine Nitrite Negative (Negative) 09/07/18 02:02 Urine Bilirubin Negative (Negative) 09/07/18 02:02 Urine Urobilinogen <2.0 mg/dL (<2.0) 09/07/18 02:02 Ur Leukocyte Esterase Negative (Negative) 09/07/18 02:02 Blood Type O Positive 09/07/18 03:50 Blood Type Confirm O Positive 09/07/18 02:02 Blood Type Recheck CABO Indicated 09/07/18 03:50 Antibody Screen NEGATIVE 09/07/18 03:50 Spec Expiration Date 09/10/2018 - 234909/07/18 03:50 Microbiology 09/07/18 02:02 Urine,Voided Urine Culture - Final 09/06/18 23:20 Blood Blood Culture - Preliminary No Growth after 24 hours Assessment and Plan (1) Acute exacerbation of chronic obstructive airways disease Current Visit: Yes Status: Acute Code(s): J44.1 - CHRONIC OBSTRUCTIVE PULMONARY DISEASE W (ACUTE) EXACERBATION SNOMED Code(s): 842148389 (2) Atrial flutter Current Visit: Yes Status: Acute Code(s): I48.92 - UNSPECIFIED ATRIAL FLUTTER SNOMED Code(s): 7914582 (3) Congestive heart failure Current Visit: Yes Status: Acute Code(s): I50.9 - HEART FAILURE, UNSPECIFIED SNOMED Code(s): 14584357 (4) Cellulitis of abdominal wall Narrative/Plan: 72-year-old male has a long-standing history of multiple medical troubles include his obesity, congestive heart failure, atrial fibrillation not on anticoagulation or most medicines. The patient presents with significant volume overload with lower extremity edema and edema to his abdominal wall. Evidence of atrial fibrillation is not being treated with Cardizem and is being anticoagulated. There is evidence of the distinct erythema to the abdominal wall and antibiotic therapy was started with vancomycin over Unasyn was also added. This is for coverage to potential gram-negative organisms especially since there is some lower extremity erythema and drainage which is concerning given his underlying diabetes mellitus. Primary service is working to try to improve compliance with medications at discharge to improve status. 09/08/2018 the patient is feeling slightly better. His atrial flutter is better controlled he is less short of breath and has noticed some improvement to his abdominal wall cellulitis. He has not with high-grade fever chills or rigors. Awaiting cultures at this point in time. Primary service is working to improve his diabetes care. Current Visit: Yes Status: Acute Code(s): L03.311 - CELLULITIS OF ABDOMINAL WALL SNOMED Code(s): 23680642
[2018-09-09] MEDS: AMPICILLIN-SULBACTAM 3 GM in SODIUM CHLORIDE 0.9% 100 ML IVPB SCH ×5 (00:18→23:36)
[2018-09-09] MEDS: FUROSEMIDE 100 MG in SODIUM CHLORIDE 0.9% 90 ML IV SCH ×2 (05:13→15:47)
[2018-09-09 06:20] LABS: Glucose,Whole Blood 123 mg/dL (75-99)
[2018-09-09] MEDS: INSULIN ASPART (NovoLOG) 100 UNIT/ML VIAL SQ SCH ×4 (06:24→21:49)
[2018-09-09] MEDS: metFORMIN 500 MG TAB PO SCH ×2 (06:48→16:58)
[2018-09-09] MEDS: IPRATROPIUM-ALBUTEROL 3 ML NEB INHALATION PRN ×4 (07:23→20:49)
[2018-09-09] MEDS ORDERED: VANCOMYCIN TROUGH DUE 1 EACH MISC MISCELLANE ONE (08:00)
[2018-09-09 08:53] LABS: Anisocytosis Slight; Basophils % (A) 0 %; Eosinophils # (A) 0.1 k/uL (0-0.7); Eosinophils % (A) 2 %; HCT 32.3 % (39.0-53.0); HGB 8.9 gm/dL (13.0-17.5); Hypochromasia Marked; Lymphocytes # (A) 0.8 k/uL (1.0-4.8); Lymphocytes % (A) 12 %; MCH 19.1 pg (25.0-35.0); MCHC 27.7 g/dL (31.0-37.0); MCV 68.9 fL (80.0-100.0); Mean Platelet Volume 5.9; Microcytosis Marked; Monocytes # (A) 0.3 k/uL (0-1.0); Monocytes % (A) 5 %; Neutrophils % (A) 77 %; Platelet Count 267 k/uL (150-450); Poikilocytosis Moderate; RBC 4.68 m/uL (4.30-5.90); RDW 19.3 % (11.5-15.5); WBC 6.4 k/uL (3.8-10.6)
[2018-09-09] MEDS: SPIRONOLACTONE 25 MG TAB PO SCH ×2 (08:57→20:24)
[2018-09-09] MEDS: ASPIRIN 81 MG PO SCH (08:57)
[2018-09-09] MEDS: MULTIVITAMINS, THERA 1 EACH TAB PO SCH (08:58)
[2018-09-09] MEDS: LINAGLIPTIN 5 MG TABLET PO SCH (08:58)
[2018-09-09] MEDS: traMADol 50 MG TAB PO PRN ×3 (08:58→23:35)
[2018-09-09] MEDS: VERAPAMIL SR 180 MG TABLET.ER PO SCH (08:58)
[2018-09-09] MEDS: POTASSIUM CHLORIDE ER 20 MEQ TAB.ER PO SCH ×2 (08:58→20:24)
[2018-09-09] MEDS: SENNOSIDES-DOCUSATE SODIUM 1 EACH TAB PO SCH ×2 (08:58→20:24)
[2018-09-09] MEDS: NYSTATIN 100,000 UNIT/GM POWD 15 GM TOPICAL SCH ×3 (09:00→20:25)
[2018-09-09] MEDS: VANCOMYCIN 2,000 MG in SODIUM CHLORIDE 0.9% 500 ML 500 ML IVPB SCH ×2 (09:05→20:21)
[2018-09-09 09:12] LABS: African American GFR (CKD) >90 (>60 ml/min/1.73 sqM); Anion Gap 10 mmol/L; Blood Urea Nitrogen 13 mg/dL (9-20); Calcium 8.2 mg/dL (8.4-10.2); Carbon Dioxide 30 mmol/L (22-30); Chloride 94 mmol/L (98-107); Glucose 107 mg/dL (74-99); Sodium 134 mmol/L (137-145)
[2018-09-09] MEDS ORDERED: DEXTROSE 5% IN WATER 100 ML with AMIODARONE 150 MG IV ONE (10:02)
[2018-09-09] MEDS ORDERED: AMIODARONE 360 MG in DEXTROSE 5% IN WATER 200 ML IV ONE ×2 (10:02)
[2018-09-09] MEDS: HEPARIN SOD,PORK IN 0.45% NACL 25,000 UNIT in 0.45% NACL 1 250ML.BAG IV SCH ×2 (11:17→21:50)
[2018-09-09 11:52] LABS: Glucose,Whole Blood 121 mg/dL (75-99)
--- NOTE | 2018-09-09 15:31 | P.PN ---
Subjective Progress Note Date: 09/09/18 This is 72 years old male with past medical history significant for chronic respiratory failure with hypoxia home oxygen dependent presented to the emergency department with shortness of breath. Patient stated normally he uses oxygen at the bedtime with his CPAP machine but don't use oxygen during the day as his saturation ranged between 89-92% on room air. Patient stated that his shortness breath has been worsening slowly and gradually with worsening lower extremity edema and today patient was having chest palpitation that he was concerned about and presented to the emergency department. Patient stated that his symptoms happened slowly and gradually was having difficulty laying in bed and stated that his been up sitting in his recliner all the time due to shortness breath. Patient stated that his lower extremity swelling has worsened despite taking Lasix 40 mg twice daily and stated that he's taking all his medication as his dispense to him. I spoke to the over the phone who stated that patient quit taking Coumadin 3 years ago after his knee surgery and easy bruising where the visiting nurse asked him to hold Coumadin and see long chain quiller tender but they did not schedule appointment with long chain quiller tender for the last 3 years at the time patient is well known to have atrial fibrill ation/flutter. Patient stated that his shortness breath has slightly improved since yesterday but still unable to sleep in bed complaining of lower extremity weakness denied any recent upper respiratory symptoms denying dysuria denying productive cough and stated that his oxygen need stated the same. Patient denying tobacco alcohol or drug abuse 09/08: Patient has been seen by cardiology for age and tachycardia with RVR possible atrial flutter with plan to continue heparin and start oral antic oagulation tomorrow. Verapamil 180 mg daily for rate control. Patient continues to have significant shortness of breath and edema for which we will transition IV Lasix to Lasix drip and Ativan and Aldactone 25 mg twice daily. The patient is concerned regarding erythema on the abdomen that does not have any open ulceration. Dr. Goodwin is on consult and managing antibiotics. He is currently on Unasyn and vancomycin. Patient has been afebrile, heart rate 88, blood pressure 128/69, pulse ox 94% on 2 L nasal cannula. WBC 6.3, hemoglobin 8.7, platelet count 235. Blood sugar 121, creatinine 0.66. Echocardiogram reveals EF of 55-60%, moderate concentric left ventricular hypertrophy, mild tricuspid regurgitation, mild pulmonary hypertension. 09/09: Patient's he states he is feeling much better today and looks better to her. Patient states he is feeling better now. He apparently was in atrial fibrillation 140 and now running 80 bpm after starting amiodarone drip. Cardiology is planning for cardioversion. Patient has had some improvement of the lower extremity edema. Urine output has been adequate. Weight is down 2.2 kg. Patient has been continued on Lasix drip, Aldactone as well as heparin drip. Cardiology has increased verapamil SR to 3-60 mg daily. Patient is juan carlos rned about the mask on his CPAP and patient to follow-up with Dr. Sanders regarding CPAP machine. Patient is afebrile, heart rate currently 90, blood pressure 107/61, pulse ox 90% on room air. Hemoglobin 8.9, creatinine 0.84. Blood culture no growth after 48 hours, urine culture finalized no growth. Objective - Vital Signs Vital signs: Vital Signs Temp 98.2 F 09/09/18 12:00 Pulse 90 09/09/18 12:12 Resp 18 09/09/18 12:00 BP 107/61 09/09/18 12:00 Pulse Ox 98 09/09/18 12:00 Intake & Output 09/08/18 09/09/18 09/09/18 18:59 06:59 18:59 Intake Total 705.1 401.753 640.147 Output Total 625 3400 1350 Balance 80.1 -2998.247 -709.853 Weight 149.3 kg Intake: Intake, IV Titration 99.1 401.753 160.147 Amount Furosemide 100 mg In 161.000 Sodium Chloride 0.9% 90 ml @ 10 MG/HR 10 mls/hr IV .Q10H [facility] Rx#: [id number] Heparin Sod,Pork in 0.45% 99.1 240.753 160.147 NaCl 25,000 unit In 0.45 % NaCl 1 250ml.bag @ 6.8 UNITS/KG/HR 10.024 mls/hr IV .Q24H [facility] Rx#: [id number] Oral 606 480 Output: Urine 625 3400 1350 Other: Voiding Method Toilet Toilet Urinal Urinal # Voids 2 1 # Bowel Movements 1 - Exam Review Of Systems: Constitutional: No fever, no chills, no night sweats. No weight change. Reports weakness, reports fatigue. EENT: No headache. No blurred vision or double vision, no loss of vision. No nasal drainage or congestion. No epistaxis. No sore throat. Lungs: Reports shortness of breath, cough, no sputum production. Cardiovascular: No chest pain, reports lower extremity edema. No palpitations. Abdominal: No abdominal pain. No nausea, vomiting. No diarrhea. No constipation. No bloody or tarry stools.. No loss of appetite. Genitourinary: No dysuria, increased frequency, urgency. No urinary retention. Musculoskeletal: No myalgias. No muscle weakness, no gait dysfunction, no frequent falls. No back pain. No neck pain. Integumentary: Reports wounds, no lesions. No rash or pruritus. Neurologic: No aphasia. No facial droop. No change in mentation. No head injury. No headache. No paralysis. No paresthesia. Psychiatric: No depression. No anxiety. No mood swings. Endocrine: Reports abnormal blood sugars. No weight change. No excessive sweating or thirst. Gen: This is a 72-year-old morbidly obese male. Patient is sitting in recliner and appears to be comfortable.. HEENT: Head is atraumatic, normocephalic. Pupils equal, round. Sclerae is anicteric. NECK: Supple. No JVD. No lymphadenopathy. No thyromegaly. LUNGS: Clear to auscultation. No wheezes or rhonchi. No intercostal retractions. HEART: Irregular rate and rhythm. No murmur. ABDOMEN: Soft. Bowel sounds are present. No masses. No tenderness. Areas of erythema noted. EXTREMITIES: Bilateral pedal edema. No calf tenderness. NEUROLOGICAL: Patient is awake, alert and oriented x3. Cranial nerves 2 through 12 are grossly intact. - Labs CBC & Chem 7: 09/09/18 08:10 09/09/18 08:10 Labs: Abnormal Lab Results - Last 24 Hours (Table) 09/08/18 09/08/18 09/08/18 Range/Units 16:56 19:42 20:41 Hgb (13.0-17.5) gm/dL Hct (39.0-53.0) % MCV (80.0-100.0) fL MCH (25.0-35.0) pg MCHC (31.0-37.0) g/dL RDW (11.5-15.5) % Lymphocytes # (1.0-4.8) k/uL APTT 44.4 H (22.0-30.0) sec Sodium (137-145) mmol/L Chloride (98-107) mmol/L Glucose (74-99) mg/dL POC Glucose (mg/dL) 104 H 100 H (75-99) mg/dL Calcium (8.4-10.2) mg/dL 09/09/18 09/09/18 09/09/18 Range/Units 02:31 06:18 08:10 Hgb 8.9 L (13.0-17.5) gm/dL Hct 32.3 L (39.0-53.0) % MCV 68.9 L (80.0-100.0) fL MCH 19.1 L (25.0-35.0) pg MCHC 27.7 L (31.0-37.0) g/dL RDW 19.3 H (11.5-15.5) % Lymphocytes # 0.8 L (1.0-4.8) k/uL APTT 45.4 H (22.0-30.0) sec Sodium (137-145) mmol/L Chloride (98-107) mmol/L Glucose (74-99) mg/dL POC Glucose (mg/dL) 123 H (75-99) mg/dL Calcium (8.4-10.2) mg/dL 09/09/18 09/09/18 09/09/18 Range/Units 08:10 08:10 11:45 Hgb (13.0-17.5) gm/dL Hct (39.0-53.0) % MCV (80.0-100.0) fL MCH (25.0-35.0) pg MCHC (31.0-37.0) g/dL RDW (11.5-15.5) % Lymphocytes # (1.0-4.8) k/uL APTT 56.8 H (22.0-30.0) sec Sodium 134 L (137-145) mmol/L Chloride 94 L (98-107) mmol/L Glucose 107 H (74-99) mg/dL POC Glucose (mg/dL) 121 H (75-99) mg/dL Calcium 8.2 L (8.4-10.2) mg/dL Microbiology - Last 24 Hours (Table) 09/06/18 23:20 Blood Culture - Preliminary Blood No Growth after 48 hours 09/07/18 02:02 Urine Culture - Final Urine,Voided Assessment and Plan Plan: 1. Atrial flutter with rapid ventricular response with history of paroxysmal atrial fibrillation. Cardizem drip was discontinued. Amiodarone drip started today. Rate is currently controlled. Continue verapamil 360 mg daily. Continue heparin drip. Cardiology is planning cardioversion. 2. Dyspnea multifactorial 3. Acute diastolic heart failure. Continue Lasix drip, Aldactone 25 mg twice daily. Continue aspirin 81 mg daily, Lipitor 20 mg daily. 4. Chronic hypoxic respiratory failure on home oxygen. 5. Severe COPD. 6. Debility and deconditioning. 7. Morbid obesity. 8. Hypertension, hypertensive cardiovascular disease. Continue verapamil 9. Noncompliance with home medication. 10. Obstructive sleep apnea with CPAP, noncompliance. 11. Mild intermittent asthma, stable. 12. Hyperlipidemia. Continue statin. 13. GERD. 14. Cellulitis of abdominal wall. Continue Unasyn and vancomycin. 15. Diabetes mellitus type 2. Continue Tradjenta, metformin, insulin scale before meals and at bedtime. Discharge plan: To be determined Impression and plan of care have been directed as dictated by the signing physician. Loreta Medellin nurse practitioner acting as scribe for signing physician.
[2018-09-09 16:45] LABS: Glucose,Whole Blood 143 mg/dL (75-99)
[2018-09-09] MEDS: AMIODARONE 300 MG in DEXTROSE 5% IN WATER 250 ML IV SCH ×2 (17:03)
[2018-09-09] MEDS: MONTELUKAST 10 MG TAB PO SCH (20:24)
[2018-09-09] MEDS: ATORVASTATIN 20 MG TAB PO SCH (20:24)
[2018-09-09 21:43] LABS: Glucose,Whole Blood 131 mg/dL (75-99)
--- NOTE | 2018-09-09 23:02 | P.PN ---
Subjective Progress Note Date: 09/09/18 72-year-old male who has a long-standing history of obesity, cardiac dysrhythmia, and lower extremity edema who 3 years ago he had significant medical illness and was initiated to medications including anticoagulation. Improvement in the last 3 years he is not taking anticoagulation and is not taking many of his medications. He now presents with increasing lower extremity edema he has atrial fibrillation with a flutter increasing shortness of breath and congestive heart failure. Consult is requested regarding her lower extremity edema as well as abdominal wall pain erythema and tenderness. The patient relates he's had difficulties in lower extremity edema over time but now has some edema to his abdominal wall it is become quite tender to touch. He's had fever and has felt quite poorly overall. 09/08/2018 patient continues to feel quite poorly. Fever has improved but continues to have significant tenderness to his abdominal wall. He does relate that the intensity of the pain is improved. He is not having further significant fever chills or rigors. He does have shortness of breath but that seems to be improving slightly also. We're extremity edema seems to be improving with current treatments. 09/09/2018 patient to see me feeling slightly better. Amiodarone was initiated and atrial fibrillation and flutter have improved. He does feel less short of breath and is not having chest pain. Lower extremities edema is improving with his diuretic therapy. Patient still feels poorly. Objective - Vital Signs Vital signs: Vital Signs Temp 98.2 F 09/09/18 15:58 Pulse 80 09/09/18 21:01 Resp 18 09/09/18 15:58 BP 104/52 09/09/18 15:58 Pulse Ox 98 09/09/18 15:58 Intake & Output 09/09/18 09/09/18 09/10/18 06:59 18:59 06:59 Intake Total 401.753 980.147 245.731 Output Total 3400 1400 Balance -2998.247 -419.853 245.731 Weight 149.3 kg Intake: Intake, IV Titration 401.753 260.147 245.731 Amount Furosemide 100 mg In 161.000 100 Sodium Chloride 0.9% 90 ml @ 10 MG/HR 10 mls/hr IV .Q10H [facility] Rx#: [id number] Heparin Sod,Pork in 0.45% 240.753 160.147 245.731 NaCl 25,000 unit In 0.45 % NaCl 1 250ml.bag @ 6.8 UNITS/KG/HR 10.024 mls/hr IV .Q24H [facility] Rx#: [id number] Oral 720 Output: Urine 3400 1400 Other: Voiding Method Toilet Toilet Urinal Urinal # Voids 1 # Bowel Movements 1 - Exam 72-year-old male who has significant is uncomfortable. HEENT: Anicteric conjunctiva are pink and moist nasal mucosa grossly intact without significant lesions, there is no thrush. Neck: The neck is supple without significant lymphadenopathy or thyromegaly. Lungs: Symmetrical bilateral air entry with basilar crackles expiratory wheezes are scattered Heart: Irregularly irregular audible S1 and S2 soft S4 no distinct murmur click or rub PMI is nonpalpable Abdomen: Obese, Positive bowel sounds soft without palpable masses or organomegaly. There was no guarding or rebound. There is dense erythema in the abdominal wall that extends from about the midpoint down through the pannus, is tender, there is thickening to the tissue there is no significant open ulceration though. Extremities: The upper extremities have excellent pulses they are symmetric, no significant petechiae or telangiectasia. No splinter hemorrhages were noted. The lower extremities have bilateral lower extremity edema there is some mild erythema and the oozing of tissue fluid has markedly improved today to the legs Neuro: Awake alert oriented to person place and time. There are no acute new gross focal sensory motor deficits. - Labs CBC & Chem 7: 09/09/18 08:10 09/09/18 08:10 Labs: Abnormal Lab Results - Last 24 Hours (Table) 09/09/18 09/09/18 09/09/18 Range/Units 02:31 06:18 08:10 Hgb 8.9 L (13.0-17.5) gm/dL Hct 32.3 L (39.0-53.0) % MCV 68.9 L (80.0-100.0) fL MCH 19.1 L (25.0-35.0) pg MCHC 27.7 L (31.0-37.0) g/dL RDW 19.3 H (11.5-15.5) % Lymphocytes # 0.8 L (1.0-4.8) k/uL APTT 45.4 H (22.0-30.0) sec Sodium (137-145) mmol/L Chloride (98-107) mmol/L Glucose (74-99) mg/dL POC Glucose (mg/dL) 123 H (75-99) mg/dL Calcium (8.4-10.2) mg/dL 09/09/18 09/09/18 09/09/18 Range/Units 08:10 08:10 11:45 Hgb (13.0-17.5) gm/dL Hct (39.0-53.0) % MCV (80.0-100.0) fL MCH (25.0-35.0) pg MCHC (31.0-37.0) g/dL RDW (11.5-15.5) % Lymphocytes # (1.0-4.8) k/uL APTT 56.8 H (22.0-30.0) sec Sodium 134 L (137-145) mmol/L Chloride 94 L (98-107) mmol/L Glucose 107 H (74-99) mg/dL POC Glucose (mg/dL) 121 H (75-99) mg/dL Calcium 8.2 L (8.4-10.2) mg/dL 09/09/18 09/09/18 Range/Units 16:35 21:41 Hgb (13.0-17.5) gm/dL Hct (39.0-53.0) % MCV (80.0-100.0) fL MCH (25.0-35.0) pg MCHC (31.0-37.0) g/dL RDW (11.5-15.5) % Lymphocytes # (1.0-4.8) k/uL APTT (22.0-30.0) sec Sodium (137-145) mmol/L Chloride (98-107) mmol/L Glucose (74-99) mg/dL POC Glucose (mg/dL) 143 H 131 H (75-99) mg/dL Calcium (8.4-10.2) mg/dL Microbiology - Last 24 Hours (Table) 09/06/18 23:20 Blood Culture - Preliminary Blood No Growth after 48 hours Laboratory Results WBC 6.4 k/uL (3.8-10.6) 09/09/18 08:10 RBC 4.68 m/uL (4.30-5.90) 09/09/18 08:10 Hgb 8.9 gm/dL (13.0-17.5) L 09/09/18 08:10 Hct 32.3 % (39.0-53.0) L 09/09/18 08:10 MCV 68.9 fL (80.0-100.0) L 09/09/18 08:10 MCH 19.1 pg (25.0-35.0) L 09/09/18 08:10 MCHC 27.7 g/dL (31.0-37.0) L 09/09/18 08:10 RDW 19.3 % (11.5-15.5) H 09/09/18 08:10 Plt Count 267 k/uL (150-450) 09/09/18 08:10 Neutrophils % 77 % 09/09/18 08:10 Lymphocytes % 12 % 09/09/18 08:10 Monocytes % 5 % 09/09/18 08:10 Eosinophils % 2 % 09/09/18 08:10 Basophils % 0 % 09/09/18 08:10 Neutrophils # 5.0 k/uL (1.3-7.7) 09/09/18 08:10 Lymphocytes # 0.8 k/uL (1.0-4.8) L 09/09/18 08:10 Monocytes # 0.3 k/uL (0-1.0) 09/09/18 08:10 Eosinophils # 0.1 k/uL (0-0.7) 09/09/18 08:10 Basophils # 0.0 k/uL (0-0.2) 09/09/18 08:10 Hypochromasia Marked 09/09/18 08:10 Poikilocytosis Moderate 09/09/18 08:10 Anisocytosis Slight 09/09/18 08:10 Microcytosis Marked 09/09/18 08:10 PT 10.9 sec (9.0-12.0) 09/07/18 09:14 INR 1.0 (<1.2) 09/07/18 09:14 APTT 56.8 sec (22.0-30.0) H 09/09/18 08:10 D-Dimer 0.75 mg/L FEU (<0.60) H 09/07/18 09:14 Sodium 134 mmol/L (137-145) L 09/09/18 08:10 Potassium 4.0 mmol/L (3.5-5.1) 09/09/18 08:10 Chloride 94 mmol/L (98-107) L 09/09/18 08:10 Carbon Dioxide 30 mmol/L (22-30) 09/09/18 08:10 Anion Gap 10 mmol/L 09/09/18 08:10 BUN 13 mg/dL (9-20) 09/09/18 08:10 Creatinine 0.84 mg/dL (0.66-1.25) 09/09/18 08:10 Est GFR (CKD-EPI)AfAm >90 (>60 ml/min/1.73 sqM) 09/09/18 08:10 Est GFR (CKD-EPI)NonAf 89 (>60 ml/min/1.73 sqM) 09/09/18 08:10 Glucose 107 mg/dL (74-99) H 09/09/18 08:10 POC Glucose (mg/dL) 131 mg/dL (75-99) H 09/09/18 21:41 POC Glu Greaser Helper ID Keira Olvera 09/09/18 21:41 Plasma Lactic Acid Roberto 1.7 mmol/L (0.7-2.0) 09/06/18 23:20 Calcium 8.2 mg/dL (8.4-10.2) L 09/09/18 08:10 Magnesium 2.1 mg/dL (1.6-2.3) 09/06/18 23:20 Total Bilirubin 0.6 mg/dL (0.2-1.3) 09/06/18 23:20 AST 68 U/L (17-59) H 09/06/18 23:20 ALT 29 U/L (21-72) 09/06/18 23:20 Alkaline Phosphatase 93 U/L (38-126) 09/06/18 23:20 Troponin I <0.012 ng/mL (0.000-0.034) 09/06/18 23:20 NT-Pro-B Natriuret Pep 1070 pg/mL 09/07/18 02:02 Total Protein 6.7 g/dL (6.3-8.2) 09/06/18 23:20 Albumin 3.9 g/dL (3.5-5.0) 09/06/18 23:20 TSH 0.790 mIU/L (0.465-4.680) 09/07/18 09:14 Urine Color Yellow 09/07/18 02:02 Urine Appearance Clear (Clear) 09/07/18 02:02 Urine pH 5.5 (5.0-8.0) 09/07/18 02:02 Ur Specific [place] 1.018 (1.001-1.035) 09/07/18 02:02 Urine Protein Trace (Negative) H 09/07/18 02:02 Urine Glucose (UA) Negative (Negative) 09/07/18 02:02 Urine Ketones Negative (Negative) 09/07/18 02:02 Urine Blood Negative (Negative) 09/07/18 02:02 Urine Nitrite Negative (Negative) 09/07/18 02:02 Urine Bilirubin Negative (Negative) 09/07/18 02:02 Urine Urobilinogen <2.0 mg/dL (<2.0) 09/07/18 02:02 Ur Leukocyte Esterase Negative (Negative) 09/07/18 02:02 Vancomycin Trough 17.7 ug/mL 09/09/18 08:10 Blood Type O Positive 09/07/18 03:50 Blood Type Confirm O Positive 09/07/18 02:02 Blood Type Recheck CABO Indicated 09/07/18 03:50 Antibody Screen NEGATIVE 09/07/18 03:50 Spec Expiration Date 09/10/2018 - 23509/07/18 03:50 Microbiology 09/06/18 23:20 Blood Blood Culture - Preliminary No Growth after 48 hours 09/07/18 02:02 Urine,Voided Urine Culture - Final Assessment and Plan (1) Acute exacerbation of chronic obstructive airways disease Current Visit: Yes Status: Acute Code(s): J44.1 - CHRONIC OBSTRUCTIVE PULMONARY DISEASE W (ACUTE) EXACERBATION SNOMED Code(s): 048911092 (2) Atrial flutter Current Visit: Yes Status: Acute Code(s): I48.92 - UNSPECIFIED ATRIAL FLUTTER SNOMED Code(s): 3923355 (3) Congestive heart failure Current Visit: Yes Status: Acute Code(s): I50.9 - HEART FAILURE, UNSPECIFIED SNOMED Code(s): 49732282 (4) Cellulitis of abdominal wall Narrative/Plan: 72-year-old male has a long-standing history of multiple medical troubles include his obesity, congestive heart failure, atrial fibrillation not on anticoagulation or most medicines. The patient presents with significant volume overload with lower extremity edema and edema to his abdominal wall. Evidence of atrial fibrillation is not being treated with Cardizem and is being anticoagulated. There is evidence of the distinct erythema to the abdominal wall and antibiotic therapy was started with vancomycin over Unasyn was also added. This is for coverage to potential gram-negative organisms especially since there is some lower extremity erythema and drainage which is concerning given his underlying diabetes mellitus. Primary service is working to try to improve compliance with medications at discharge to improve status. 09/08/2018 the patient is feeling slightly better. His atrial flutter is better controlled he is less short of breath and has noticed some improvement to his ab dominal wall cellulitis. He has not with high-grade fever chills or rigors. Awaiting cultures at this point in time. Primary service is working to improve his diabetes care. 09/09/2018 with control of his atrial flutter he is less short of breath and does feel better. Abdominal wall cellulitis continues to improve with less erythema and tenderness. He is not having fever. He is tolerating current antibiotic therapy well. Current Visit: Yes Status: Acute Code(s): L03.311 - CELLULITIS OF ABDOMINAL WALL SNOMED Code(s): 01285458
[2018-09-10] MEDS: FUROSEMIDE 100 MG in SODIUM CHLORIDE 0.9% 90 ML IV SCH ×2 (03:11→06:26)
[2018-09-10] MEDS: AMPICILLIN-SULBACTAM 3 GM in SODIUM CHLORIDE 0.9% 100 ML IVPB SCH ×4 (05:44→23:40)
[2018-09-10] MEDS: AMIODARONE 300 MG in DEXTROSE 5% IN WATER 250 ML IV SCH ×2 (05:48)
[2018-09-10 06:25] LABS: Glucose,Whole Blood 130 mg/dL (75-99)
[2018-09-10] MEDS: INSULIN ASPART (NovoLOG) 100 UNIT/ML VIAL SQ SCH ×4 (06:31→21:09)
[2018-09-10] MEDS: metFORMIN 500 MG TAB PO SCH ×2 (06:44→17:05)
[2018-09-10] MEDS: traMADol 50 MG TAB PO PRN ×3 (06:46→20:22)
[2018-09-10] MEDS: IPRATROPIUM-ALBUTEROL 3 ML NEB INHALATION PRN ×4 (07:10→20:07)
[2018-09-10 07:35] LABS: Anisocytosis Slight; Basophils % (A) 1 %; Eosinophils # (A) 0.1 k/uL (0-0.7); Eosinophils % (A) 1 %; HCT 31.2 % (39.0-53.0); HGB 8.7 gm/dL (13.0-17.5); Hypochromasia Marked; Lymphocytes # (A) 0.8 k/uL (1.0-4.8); Lymphocytes % (A) 12 %; MCH 19.5 pg (25.0-35.0); MCHC 27.8 g/dL (31.0-37.0); MCV 70.3 fL (80.0-100.0); Mean Platelet Volume 6.2; Microcytosis Marked; Monocytes # (A) 0.5 k/uL (0-1.0); Monocytes % (A) 8 %; Neutrophils % (A) 75 %; Platelet Count 245 k/uL (150-450); Poikilocytosis Moderate; RBC 4.44 m/uL (4.30-5.90); RDW 18.7 % (11.5-15.5); WBC 6.6 k/uL (3.8-10.6)
[2018-09-10 08:01] LABS: Calcium 8.3 mg/dL (8.4-10.2); Potassium 4.1 mmol/L (3.5-5.1)
[2018-09-10] MEDS: HEPARIN SOD,PORK IN 0.45% NACL 25,000 UNIT in 0.45% NACL 1 250ML.BAG IV SCH ×2 (09:23→20:30)
[2018-09-10] MEDS: SPIRONOLACTONE 25 MG TAB PO SCH ×2 (09:24→20:21)
[2018-09-10] MEDS: POTASSIUM CHLORIDE ER 20 MEQ TAB.ER PO SCH ×2 (09:24→20:21)
[2018-09-10] MEDS: ASPIRIN 81 MG PO SCH (09:24)
[2018-09-10] MEDS: VERAPAMIL SR 180 MG TABLET.ER PO SCH (09:24)
[2018-09-10] MEDS: LINAGLIPTIN 5 MG TABLET PO SCH (09:24)
[2018-09-10] MEDS: MULTIVITAMINS, THERA 1 EACH TAB PO SCH (09:24)
[2018-09-10] MEDS: SENNOSIDES-DOCUSATE SODIUM 1 EACH TAB PO SCH ×2 (09:24→20:22)
[2018-09-10] MEDS: NYSTATIN 100,000 UNIT/GM POWD 15 GM TOPICAL SCH ×3 (09:25→20:23)
[2018-09-10] MEDS: VANCOMYCIN 2,000 MG in SODIUM CHLORIDE 0.9% 500 ML 500 ML IVPB SCH (09:27)
[2018-09-10 11:35] LABS: Hemoglobin A1C 114
[2018-09-10 11:57] LABS: Glucose,Whole Blood 123 mg/dL (75-99)
--- NOTE | 2018-09-10 15:02 | P.PN ---
Subjective Progress Note Date: 09/10/18 The patient is a 72-year-old male with past medical history of COPD, hypertension, diabetes, dyslipidemia who presented with complaints of increased edema. States he has had increasing edema in his legs extending up to his abdomen over the last few days. Has also had worsening shortness of breath with exertion. Denies any chest pain, palpitations, dizziness, lightheadedness, syncope. EKG showed atrial tachycardia with RVR. He has a questionable history of atrial fibrillation and states he was on warfarin 3 years ago but had to be taken because" his blood became too thin". He is a patient of Dr. Wasserman. He was started on IV Cardizem and IV heparin. He continues to be atrial flutter heart rate in the 90s low 100s. Blood pressure 105/70 with a heart rate of 80, 93% on 2 L of oxygen. White blood cell count 6.3, hemoglobin 8.7, platelet count 235. Creatinine today 0.6. 09/10/2018 Patient was seen and examined this morning, heart rate under better control, diuresed well through the night last night on the Lasix drip. Today we'll discontinue the Lasix drip, change the IV push Lasix. Discontinue IV amiodarone and start the patient on oral amiodarone. Continue IV heparin. Patient will be scheduled tomorrow to undergo a MIKE with subsequent cardioversion by Dr. Wasserman. Objective - Vital Signs Vital signs: Vital Signs Temp 97.9 F 09/10/18 12:00 Pulse 90 09/10/18 13:21 Resp 18 09/10/18 13:21 BP 115/57 09/10/18 13:21 Pulse Ox 96 09/10/18 13:21 Intake & Output 09/09/18 09/10/18 09/10/18 18:59 06:59 18:59 Intake Total 980.147 628.231 970 Output Total 1400 1025 1100 Balance -419.853 -396.769 -130 Weight 150.5 kg Intake: Intake, IV Titration 260.147 628.231 250 Amount Amiodarone 300 mg In 250 Dextrose 5% in Water 250 ml @ 0.5 MG/MIN 25 mls/hr IV .Q10H [facility] Rx#: [id number] Furosemide 100 mg In 100 132.5 Sodium Chloride 0.9% 90 ml @ 10 MG/HR 10 mls/hr IV .Q10H [facility] Rx#: [id number] Heparin Sod,Pork in 0.45% 160.147 245.731 250 NaCl 25,000 unit In 0.45 % NaCl 1 250ml.bag @ 6.8 UNITS/KG/HR 10.024 mls/hr IV .Q24H [facility] Rx#: [id number] Oral 720 720 Output: Urine 1400 1025 1100 Other: Voiding Method Toilet Toilet Toilet Urinal Urinal Urinal # Voids 1 - Exam PHYSICAL EXAMINATION: GENERAL: 72-year-old gentleman in no acute distress at the time of my examination HEENT: Head is atraumatic, normocephalic. Pupils equal, round. Sclera an icteric. Conjunctiva are clear. Mucous membranes of the mouth are moist. Neck is supple. There is elevated jugular venous pressure. No carotid bruit is heard. HEART EXAMINATION: S1 and S2 irregularly irregular a systolic murmur is heard CHEST EXAMINATION:lungs reveal diminished air entry to bilateral bases ABDOMEN: Soft, obese, nontender. Bowel sounds are heard. No organomegaly noted. EXTREMITIES: 1+ peripheral pulses with trace to1+ evidence of peripheral edema and no calf tenderness noted. NEUROLOGIC patient is awake, alert and oriented 3 . . - Labs CBC & Chem 7: 09/10/18 06:51 09/10/18 06:51 Labs: Abnormal Lab Results - Last 24 Hours (Table) 09/09/18 09/09/18 09/10/18 Range/Units 16:35 21:41 06:24 Hgb (13.0-17.5) gm/dL Hct (39.0-53.0) % MCV (80.0-100.0) fL MCH (25.0-35.0) pg MCHC (31.0-37.0) g/dL RDW (11.5-15.5) % Lymphocytes # (1.0-4.8) k/uL APTT (22.0-30.0) sec Sodium (137-145) mmol/L Chloride (98-107) mmol/L Glucose (74-99) mg/dL POC Glucose (mg/dL) 143 H 131 H 130 H (75-99) mg/dL Calcium (8.4-10.2) mg/dL 09/10/18 09/10/18 09/10/18 Range/Units 06:51 06:51 11:26 Hgb 8.7 L (13.0-17.5) gm/dL Hct 31.2 L (39.0-53.0) % MCV 70.3 L (80.0-100.0) fL MCH 19.5 L (25.0-35.0) pg MCHC 27.8 L (31.0-37.0) g/dL RDW 18.7 H (11.5-15.5) % Lymphocytes # 0.8 L (1.0-4.8) k/uL APTT 73.5 H (22.0-30.0) sec Sodium 133 L (137-145) mmol/L Chloride 93 L (98-107) mmol/L Glucose 108 H (74-99) mg/dL POC Glucose (mg/dL) (75-99) mg/dL Calcium 8.3 L (8.4-10.2) mg/dL 09/10/18 Range/Units 11:49 Hgb (13.0-17.5) gm/dL Hct (39.0-53.0) % MCV (80.0-100.0) fL MCH (25.0-35.0) pg MCHC (31.0-37.0) g/dL RDW (11.5-15.5) % Lymphocytes # (1.0-4.8) k/uL APTT (22.0-30.0) sec Sodium (137-145) mmol/L Chloride (98-107) mmol/L Glucose (74-99) mg/dL POC Glucose (mg/dL) 123 H (75-99) mg/dL Calcium (8.4-10.2) mg/dL Microbiology - Last 24 Hours (Table) 09/06/18 23:20 Blood Culture - Preliminary Blood No Growth after 72 hours Assessment and Plan Plan: Assessment and plan #1 atypical atrial flutter #2 hyperlipidemia #3 hypertension #4 COPD #5 diabetes #6 diastolic congestive heart failure acute on chronic Plan We will discontinue the Lasix drip and start the patient on IV Lasix, discontinue amiodarone drip and start the patient on oral amiodarone. Continue IV heparin. Patient will be scheduled tomorrow to undergo a transesophageal echocardiogram with subsequent cardioversion electively by Dr. Wasserman. The risks and benefits were explained to the patient in detail. DNP note has been reviewed, I agree with a documented findings and plan of care. Patient was seen and examined.
--- NOTE | 2018-09-10 16:17 | P.PN ---
Subjective Progress Note Date: 09/10/18 This is 72 years old male with past medical history significant for chronic respiratory failure with hypoxia home oxygen dependent presented to the emergency department with shortness of breath. Patient stated normally he uses oxygen at the bedtime with his CPAP machine but don't use oxygen during the day as his saturation ranged between 89-92% on room air. Patient stated that his shortness breath has been worsening slowly and gradually with worsening lower extremity edema and today patient was having chest palpitation that he was concerned about and presented to the emergency department. Patient stated that his symptoms happened slowly and gradually was having difficulty laying in bed and stated that his been up sitting in his recliner all the time due to shortness breath. Patient stated that his lower extremity swelling has worsened despite taking Lasix 40 mg twice daily and stated that he's taking all his medication as his dispense to him. I spoke to the over the phone who stated that patient quit taking Coumadin 3 years ago after his knee surgery and easy bruising where the visiting nurse asked him to hold Coumadin and see refrigeration lead but they did not schedule appointment with refrigeration lead for the last 3 years at the time patient is well known to have atrial fibrill ation/flutter. Patient stated that his shortness breath has slightly improved since yesterday but still unable to sleep in bed complaining of lower extremity weakness denied any recent upper respiratory symptoms denying dysuria denying productive cough and stated that his oxygen need stated the same. Patient denying tobacco alcohol or drug abuse 09/08: Patient has been seen by cardiology for age and tachycardia with RVR possible atrial flutter with plan to continue heparin and start oral antic oagulation tomorrow. Verapamil 180 mg daily for rate control. Patient continues to have significant shortness of breath and edema for which we will transition IV Lasix to Lasix drip and Ativan and Aldactone 25 mg twice daily. The patient is concerned regarding erythema on the abdomen that does not have any open ulceration. Dr. Goodwin is on consult and managing antibiotics. He is currently on Unasyn and vancomycin. Patient has been afebrile, heart rate 88, blood pressure 128/69, pulse ox 94% on 2 L nasal cannula. WBC 6.3, hemoglobin 8.7, platelet count 235. Blood sugar 121, creatinine 0.66. Echocardiogram reveals EF of 55-60%, moderate concentric left ventricular hypertrophy, mild tricuspid regurgitation, mild pulmonary hypertension. 09/09: Patient's he states he is feeling much better today and looks better to her. Patient states he is feeling better now. He apparently was in atrial fibrillation 140 and now running 80 bpm after starting amiodarone drip. Cardiology is planning for cardioversion. Patient has had some improvement of the lower extremity edema. Urine output has been adequate. Weight is down 2.2 kg. Patient has been continued on Lasix drip, Aldactone as well as heparin drip. Cardiology has increased verapamil SR to 3-60 mg daily. Patient is juan carlos rned about the mask on his CPAP and patient to follow-up with Dr. Sanders regarding CPAP machine. Patient is afebrile, heart rate currently 90, blood pressure 107/61, pulse ox 90% on room air. Hemoglobin 8.9, creatinine 0.84. Blood culture no growth after 48 hours, urine culture finalized no growth. 09/10: Patient remains on Lasix drip as well as heparin drip and amiodarone drip. Patient continues to diurese well and he is feeling improved in general today. Shortness of breath is improved. He is scheduled for MIKE and cardioversion for tomorrow. Patient's heart rate is in the 80s, afebrile, blood pressure 117/73, pulse ox 96% on 2 L nasal cannula. Objective - Vital Signs Vital signs: Vital Signs Temp 97.0 F L 09/10/18 04:00 Pulse 84 09/10/18 07:29 Resp 18 09/10/18 04:00 BP 117/73 09/10/18 04:00 Pulse Ox 96 09/10/18 04:00 Intake & Output 09/09/18 09/10/18 09/10/18 18:59 06:59 18:59 Intake Total 980.147 628.231 610 Output Total 1400 1025 1100 Balance -419.853 -396.769 -490 Weight 150.5 kg Intake: Intake, IV Titration 260.147 628.231 250 Amount Amiodarone 300 mg In 250 Dextrose 5% in Water 250 ml @ 0.5 MG/MIN 25 mls/hr IV .Q10H [facility] Rx#: [id number] Furosemide 100 mg In 100 132.5 Sodium Chloride 0.9% 90 ml @ 10 MG/HR 10 mls/hr IV .Q10H [facility] Rx#: [id number] Heparin Sod,Pork in 0.45% 160.147 245.731 250 NaCl 25,000 unit In 0.45 % NaCl 1 250ml.bag @ 6.8 UNITS/KG/HR 10.024 mls/hr IV .Q24H [facility] Rx#: [id number] Oral 720 360 Output: Urine 1400 1025 1100 Other: Voiding Method Toilet Toilet Urinal Urinal # Voids 1 - Exam Review Of Systems: Constitutional: No fever, no chills, no night sweats. No weight change. Reports weakness, reports fatigue. EENT: No headache. No blurred vision or double vision, no loss of vision. No nasal drainage or congestion. No epistaxis. No sore throat. Lungs: Reports shortness of breath-improving, cough, no sputum production. Cardiovascular: No chest pain, reports lower extremity edema. No palpitations. Abdominal: No abdominal pain. No nausea, vomiting. No diarrhea. No constipation. No bloody or tarry stools.. No loss of appetite. Genitourinary: No dysuria, increased frequency, urgency. No urinary retention. Musculoskeletal: No myalgias. No muscle weakness, no gait dysfunction, no frequent falls. No back pain. No neck pain. Integumentary: Reports wounds, no lesions. No rash or pruritus. Neurologic: No aphasia. No facial droop. No change in mentation. No head injury. No headache. No paralysis. No paresthesia. Psychiatric: No depression. No anxiety. No mood swings. Endocrine: Reports abnormal blood sugars. No weight change. No excessive sweating or thirst. Gen: This is a 72-year-old morbidly obese male. Patient is sitting in recliner and appears to be comfortable.. HEENT: Head is atraumatic, normocephalic. Pupils equal, round. Sclerae is anicteric. NECK: Supple. No JVD. No lymphadenopathy. No thyromegaly. LUNGS: Clear to auscultation. No wheezes or rhonchi. No intercostal retrac tions. HEART: Irregular rate and rhythm. No murmur. ABDOMEN: Soft. Bowel sounds are present. No masses. No tenderness. Areas of erythema noted. EXTREMITIES: Bilateral pedal edema. No calf tenderness. NEUROLOGICAL: Patient is awake, alert and oriented x3. Cranial nerves 2 through 12 are grossly intact. - Labs CBC & Chem 7: 09/10/18 06:51 09/10/18 06:51 Labs: Abnormal Lab Results - Last 24 Hours (Table) 09/09/18 09/09/18 09/09/18 Range/Units 11:45 16:35 21:41 Hgb (13.0-17.5) gm/dL Hct (39.0-53.0) % MCV (80.0-100.0) fL MCH (25.0-35.0) pg MCHC (31.0-37.0) g/dL RDW (11.5-15.5) % Lymphocytes # (1.0-4.8) k/uL Sodium (137-145) mmol/L Chloride (98-107) mmol/L Glucose (74-99) mg/dL POC Glucose (mg/dL) 121 H 143 H 131 H (75-99) mg/dL Calcium (8.4-10.2) mg/dL 09/10/18 09/10/18 09/10/18 Range/Units 06:24 06:51 06:51 Hgb 8.7 L (13.0-17.5) gm/dL Hct 31.2 L (39.0-53.0) % MCV 70.3 L (80.0-100.0) fL MCH 19.5 L (25.0-35.0) pg MCHC 27.8 L (31.0-37.0) g/dL RDW 18.7 H (11.5-15.5) % Lymphocytes # 0.8 L (1.0-4.8) k/uL Sodium 133 L (137-145) mmol/L Chloride 93 L (98-107) mmol/L Glucose 108 H (74-99) mg/dL POC Glucose (mg/dL) 130 H (75-99) mg/dL Calcium 8.3 L (8.4-10.2) mg/dL Microbiology - Last 24 Hours (Table) 09/06/18 23:20 Blood Culture - Preliminary Blood No Growth after 72 hours Assessment and Plan Plan: 1. Atrial flutter with rapid ventricular response with history of paroxysmal atrial fibrillation. Continue heparin drip, Amiodarone drip. Rate is currently controlled. Continue verapamil 360 mg daily. Cardiology is planning MIKE and cardioversion tomorrow. 2. Dyspnea multifactorial 3. Acute diastolic heart failure. Continue Lasix drip, Aldactone 25 mg twice daily. Continue aspirin 81 mg daily, Lipitor 20 mg daily. 4. Chronic hypoxic respiratory failure on home oxygen. 5. Severe COPD. 6. Debility and deconditioning. 7. Morbid obesity. 8. Hypertension, hypertensive cardiovascular disease. Continue verapamil 9. Noncompliance with home medication. 10. Obstructive sleep apnea with CPAP, noncompliance. 11. Mild intermittent asthma, stable. 12. Hyperlipidemia. Continue statin. 13. GERD. 14. Cellulitis of abdominal wall. Continue Unasyn and vancomycin. 15. Diabetes mellitus type 2. Continue Tradjenta, metformin, insulin scale before meals and at bedtime. Discharge plan: To be determined Impression and plan of care have been directed as dictated by the signing physician. Loreta Medellin nurse practitioner acting as scribe for signing physician.
[2018-09-10 16:39] LABS: Glucose,Whole Blood 128 mg/dL (75-99)
[2018-09-10] MEDS: SODIUM CHLORIDE 0.9% 1,000 ML IV SCH (17:45)
[2018-09-10] MEDS ORDERED: VANCOMYCIN TROUGH DUE 1 EACH MISC MISCELLANE ONE (20:00)
[2018-09-10] MEDS: MONTELUKAST 10 MG TAB PO SCH (20:22)
[2018-09-10] MEDS: ATORVASTATIN 20 MG TAB PO SCH (20:22)
[2018-09-10] MEDS: AMIODARONE 200 MG TAB PO SCH (20:22)
[2018-09-10] MEDS: FUROSEMIDE 10 MG/ML 4 ML VIAL IV SCH (20:22)
[2018-09-10 20:39] LABS: Glucose,Whole Blood 135 mg/dL (75-99)
[2018-09-11 03:55] LABS: Anisocytosis Slight; HCT 30.7 % (39.0-53.0); HGB 8.7 gm/dL (13.0-17.5); Hypochromasia Marked; MCH 19.4 pg (25.0-35.0); MCHC 28.2 g/dL (31.0-37.0); MCV 68.8 fL (80.0-100.0); Mean Platelet Volume 6.6; Microcytosis Marked; Platelet Count 254 k/uL (150-450); Poikilocytosis Moderate; RBC 4.46 m/uL (4.30-5.90); RDW 19.5 % (11.5-15.5); WBC 7.3 k/uL (3.8-10.6)
[2018-09-11 04:07] LABS: Calcium 8.5 mg/dL (8.4-10.2); Potassium 4.3 mmol/L (3.5-5.1)
[2018-09-11 04:29] LABS: Eosinophils # (M) 0.07 k/uL (0-0.7); Lymphocytes # (M) 0.73 k/uL (1.0-4.8); Monocytes # (M) 0.73 k/uL (0-1.0); Neutrophils # (M) 5.77 k/uL (1.3-7.7); Neutrophils % (M) 79 %; Nucleated Red Blood Cells 0 /100 WBC (0-0); Polychromasia Present; Total Cells Counted 100
[2018-09-11 06:06] LABS: Glucose,Whole Blood 132 mg/dL (75-99)
[2018-09-11] MEDS: AMPICILLIN-SULBACTAM 3 GM in SODIUM CHLORIDE 0.9% 100 ML IVPB SCH ×4 (06:09→23:12)
[2018-09-11] MEDS: INSULIN ASPART (NovoLOG) 100 UNIT/ML VIAL SQ SCH ×4 (06:09→21:04)
[2018-09-11] MEDS: metFORMIN 500 MG TAB PO SCH ×3 (06:09→17:49)
[2018-09-11] MEDS ORDERED: SODIUM CHLORIDE 0.9% 1,000 ML IV ONE (07:40)
[2018-09-11] MEDS ORDERED: PROPOFOL 10 MG/ML 20 ML VIAL IV ONE (07:45)
[2018-09-11] MEDS ORDERED: BENZOCAINE SPRAY 1 CAN TOPICAL ONE (07:47)
--- NOTE | 2018-09-11 08:24 | ECHOT ---
TRANSESOPHAGEAL ECHOCARDIOGRAM Deondre is a 72-year-old gentleman who was admitted to the hospital with atrial fibrillation with poorly controlled ventricular rate and I have been asked to do a MIKE cardioversion on him. He was initially in atrial tachycardia with rapid ventricular rate. The patient has not been on any anticoagulant. The patient is currently on IV heparin and the risks and benefits have been explained. PROCEDURE NOTE: After obtaining informed consent, transesophageal echocardiogram was performed in left lateral position using an Omni plane probe. Local and IV sedation was obtained by the watershed tender. The patient tolerated the procedure well without any obvious immediate complications. FINDINGS: 1. Left atrial appendage. There is a small echodense lesion noted within the left atrial appendage consistent with left atrial appendage thrombus. 2. Mitral valve appears anatomically normal. There is mild to moderate central mitral regurgitation noted. 3. There is mild tricuspid regurgitation noted. 4. Right atrium appears mildly enlarged. 5. Left atrium, left ventricle and right ventricular are within normal limits. 6. There is no evidence of [id number]-[id number] shunt by color-flow Doppler or [id number] shunt by agitated saline contrast study across the interatrial septum. 7. Aortic valve is a 3-leaflet valve. There is no evidence of regurgitation. Aortic root appears within normal limits. Left ventricle has normal size and systolic function. CONCLUSION: 1. Normal left ventricular systolic function. 2. Mild to moderate mitral regurgitation. 3. Small left atrial appendage thrombus. PLAN: I am going to cancel the cardioversion at this time. Let's continue with the anticoagulation and I will attempt MIKE cardioversion on him down the road as outpatient. MMODL / IJN: [id number] /
[2018-09-11] MEDS: IPRATROPIUM-ALBUTEROL 3 ML NEB INHALATION PRN ×4 (08:36→23:24)
[2018-09-11] MEDS: SENNOSIDES-DOCUSATE SODIUM 1 EACH TAB PO SCH ×2 (09:08→20:00)
[2018-09-11] MEDS: SPIRONOLACTONE 25 MG TAB PO SCH ×2 (09:10→19:59)
[2018-09-11] MEDS: VERAPAMIL SR 180 MG TABLET.ER PO SCH (09:10)
[2018-09-11] MEDS: MULTIVITAMINS, THERA 1 EACH TAB PO SCH (09:10)
[2018-09-11] MEDS: AMIODARONE 200 MG TAB PO SCH ×2 (09:10→20:00)
[2018-09-11] MEDS: ASPIRIN 81 MG PO SCH (09:10)
[2018-09-11] MEDS: FUROSEMIDE 10 MG/ML 4 ML VIAL IV SCH (09:11)
[2018-09-11] MEDS: LINAGLIPTIN 5 MG TABLET PO SCH (09:11)
[2018-09-11] MEDS: POTASSIUM CHLORIDE ER 20 MEQ TAB.ER PO SCH ×2 (09:15→20:00)
[2018-09-11] MEDS: HEPARIN SOD,PORK IN 0.45% NACL 25,000 UNIT in 0.45% NACL 1 250ML.BAG IV SCH (10:56)
[2018-09-11] MEDS: HEPARIN SODIUM,PORCINE 5,000 UNIT/ML 1 ML VIAL IV PRN (10:57)
[2018-09-11] MEDS ORDERED: VANCOMYCIN 2,000 MG in SODIUM CHLORIDE 0.9% 500 ML 500 ML IVPB SCH (11:00)
[2018-09-11] MEDS: NYSTATIN 100,000 UNIT/GM POWD 15 GM TOPICAL SCH ×3 (11:06→20:05)
[2018-09-11] MEDS: SODIUM CHLORIDE 0.9% 1,000 ML IV SCH ×2 (11:07→16:09)
[2018-09-11 12:05] LABS: Glucose,Whole Blood 118 mg/dL (75-99)
[2018-09-11] MEDS: APIXABAN 5 MG TAB PO SCH ×2 (12:15→19:59)
--- NOTE | 2018-09-11 14:12 | P.PN ---
Subjective Progress Note Date: 09/11/18 This is 72 years old male with past medical history significant for chronic respiratory failure with hypoxia home oxygen dependent presented to the emergency department with shortness of breath. Patient stated normally he uses oxygen at the bedtime with his CPAP machine but don't use oxygen during the day as his saturation ranged between 89-92% on room air. Patient stated that his shortness breath has been worsening slowly and gradually with worsening lower extremity edema and today patient was having chest palpitation that he was concerned about and presented to the emergency department. Patient stated that his symptoms happened slowly and gradually was having difficulty laying in bed and stated that his been up sitting in his recliner all the time due to shortness breath. Patient stated that his lower extremity swelling has worsened despite taking Lasix 40 mg twice daily and stated that he's taking all his medication as his dispense to him. I spoke to the over the phone who stated that patient quit taking Coumadin 3 years ago after his knee surgery and easy bruising where the visiting nurse asked him to hold Coumadin and see molten iron pourer but they did not schedule appointment with molten iron pourer for the last 3 years at the time patient is well known to have atrial fibrill ation/flutter. Patient stated that his shortness breath has slightly improved since yesterday but still unable to sleep in bed complaining of lower extremity weakness denied any recent upper respiratory symptoms denying dysuria denying productive cough and stated that his oxygen need stated the same. Patient denying tobacco alcohol or drug abuse 09/08: Patient has been seen by cardiology for age and tachycardia with RVR possible atrial flutter with plan to continue heparin and start oral antic oagulation tomorrow. Verapamil 180 mg daily for rate control. Patient continues to have significant shortness of breath and edema for which we will transition IV Lasix to Lasix drip and Ativan and Aldactone 25 mg twice daily. The patient is concerned regarding erythema on the abdomen that does not have any open ulceration. Dr. Goodwin is on consult and managing antibiotics. He is currently on Unasyn and vancomycin. Patient has been afebrile, heart rate 88, blood pressure 128/69, pulse ox 94% on 2 L nasal cannula. WBC 6.3, hemoglobin 8.7, platelet count 235. Blood sugar 121, creatinine 0.66. Echocardiogram reveals EF of 55-60%, moderate concentric left ventricular hypertrophy, mild tricuspid regurgitation, mild pulmonary hypertension. 09/09: Patient's he states he is feeling much better today and looks better to her. Patient states he is feeling better now. He apparently was in atrial fibrillation 140 and now running 80 bpm after starting amiodarone drip. Cardiology is planning for cardioversion. Patient has had some improvement of the lower extremity edema. Urine output has been adequate. Weight is down 2.2 kg. Patient has been continued on Lasix drip, Aldactone as well as heparin drip. Cardiology has increased verapamil SR to 3-60 mg daily. Patient is juan carlos rned about the mask on his CPAP and patient to follow-up with Dr. Sanders regarding CPAP machine. Patient is afebrile, heart rate currently 90, blood pressure 107/61, pulse ox 90% on room air. Hemoglobin 8.9, creatinine 0.84. Blood culture no growth after 48 hours, urine culture finalized no growth. 09/10: Patient remains on Lasix drip as well as heparin drip and amiodarone drip. Patient continues to diurese well and he is feeling improved in general today. Shortness of breath is improved. He is scheduled for MIKE and cardioversion for tomorrow. Patient's heart rate is in the 80s, afebrile, blood pressure 117/73, pulse ox 96% on 2 L nasal cannula. 09/11: Patient is found sleeping in a recliner with nasal cannula O2 in place. He awakens easily. He has been transitioned to oral amiodarone and eliquis. Patient underwent MIKE which found normal left ventricle systolic function. Mild to moderate mitral regurgitation. Small left atrial appendage thrombus. Cardioversion was canceled and patient to continue anticoagulation. Plan will be for cardioversion down the road. Patient will be resumed on eliquis 5 mg twice daily and heparin drip discontinued. Patient states that his breathing is improved. Lower extremity edema is improving. Heart rate is currently controlled 90s to 110 in atrial fibrillation. Objective - Vital Signs Vital signs: Vital Signs Temp 98.1 F 09/11/18 12:29 Pulse 96 09/11/18 12:29 Resp 22 09/11/18 12:29 BP 128/77 09/11/18 12:29 Pulse Ox 98 09/11/18 12:29 Intake & Output 07/09/11/18 09/11/18 18:59 06:59 18:59 Intake Total 1330 350 540 Output Total 1450 900 Balance -120 -550 540 Weight 145.1 kg Intake: IV 50 Intake, IV Titration 250 350 250 Amount Ampicillin-Sulbactam 3 gm 100 In Sodium Chloride 0.9% 100 ml @ 200 mls/hr IVPB Q6HR [facility] Rx#:[id number] Heparin Sod,Pork in 0.45% 250 250 250 NaCl 25,000 unit In 0.45 % NaCl 1 250ml.bag @ 6.8 UNITS/KG/HR 10.024 mls/hr IV .Q24H [facility] Rx#: [id number] Oral 1080 240 Output: Urine 1450 900 Other: Voiding Method Toilet Toilet Toilet Urinal Urinal Urinal # Voids 350 1 1 - Exam Review Of Systems: Constitutional: No fever, no chills, no night sweats. No weight change. Denies weakness, reports fatigue. EENT: No headache. No blurred vision or double vision, no loss of vision. No nasal drainage or congestion. No epistaxis. No sore throat. Lungs: Denies shortness of breath-improving, cough, no sputum production. Cardiovascular: No chest pain, reports lower extremity edema. No palpitations. Abdominal: No abdominal pain. No nausea, vomiting. No diarrhea. No constipation. No bloody or tarry stools.. No loss of appetite. Genitourinary: No dysuria, increased frequency, urgency. No urinary retention. Musculoskeletal: No myalgias. No muscle weakness, no gait dysfunction, no frequent falls. No back pain. No neck pain. Integumentary: Reports wounds, no lesions. No rash or pruritus. Neurologic: No aphasia. No facial droop. No change in mentation. No head injury. No headache. No paralysis. No paresthesia. Psychiatric: No depression. No anxiety. No mood swings. Endocrine: Reports abnormal blood sugars. No weight change. No excessive sweating or thirst. Gen: This is a 72-year-old morbidly obese male. Patient is sitting in recliner and appears to be comfortable. Patient sleeping and awakens easily. HEENT: Head is atraumatic, normocephalic. Pupils equal, round. Sclerae is anicteric. NECK: Supple. No JVD. No lymphadenopathy. No thyromegaly. LUNGS: Clear to auscultation. No wheezes or rhonchi. No intercostal retractions. HEART: Irregular rate and rhythm. No murmur. ABDOMEN: Soft. Bowel sounds are present. No masses. No tenderness. Areas of erythema noted. EXTREMITIES: Bilateral pedal edema. No calf tenderness. NEUROLOGICAL: Patient is awake, alert and oriented x3. Cranial nerves 2 through 12 are grossly intact. - Labs CBC & Chem 7: 09/11/18 03:37 09/11/18 03:37 Labs: Abnormal Lab Results - Last 24 Hours (Table) 09/10/18 09/10/18 09/11/18 Range/Units 16:35 20:38 03:37 Hgb 8.7 L (13.0-17.5) gm/dL Hct 30.7 L (39.0-53.0) % MCV 68.8 L (80.0-100.0) fL MCH 19.4 L (25.0-35.0) pg MCHC 28.2 L (31.0-37.0) g/dL RDW 19.5 H (11.5-15.5) % Lymphocytes # (Manual) 0.73 L (1.0-4.8) k/uL APTT (22.0-30.0) sec Sodium (137-145) mmol/L Chloride (98-107) mmol/L Glucose (74-99) mg/dL POC Glucose (mg/dL) 128 H 135 H (75-99) mg/dL 09/11/18 09/11/18 09/11/18 Range/Units 03:37 03:37 06:04 Hgb (13.0-17.5) gm/dL Hct (39.0-53.0) % MCV (80.0-100.0) fL MCH (25.0-35.0) pg MCHC (31.0-37.0) g/dL RDW (11.5-15.5) % Lymphocytes # (Manual) (1.0-4.8) k/uL APTT 34.3 H (22.0-30.0) sec Sodium 132 L (137-145) mmol/L Chloride 93 L (98-107) mmol/L Glucose 118 H (74-99) mg/dL POC Glucose (mg/dL) 132 H (75-99) mg/dL 09/11/18 09/11/18 Range/Units 10:07 12:02 Hgb (13.0-17.5) gm/dL Hct (39.0-53.0) % MCV (80.0-100.0) fL MCH (25.0-35.0) pg MCHC (31.0-37.0) g/dL RDW (11.5-15.5) % Lymphocytes # (Manual) (1.0-4.8) k/uL APTT 40.0 H (22.0-30.0) sec Sodium (137-145) mmol/L Chloride (98-107) mmol/L Glucose (74-99) mg/dL POC Glucose (mg/dL) 118 H (75-99) mg/dL Microbiology - Last 24 Hours (Table) 09/06/18 23:20 Blood Culture - Preliminary Blood No Growth after 96 hours Assessment and Plan Plan: 1. Atrial flutter with rapid ventricular response with history of paroxysmal atrial fibrillation. Heparin drip will be transitioned to Lantus. Amiodarone drip transitioned to oral. On Lasix drip transitioned to IV push. Rate is currently controlled. Continue verapamil 360 mg daily. Status post MIKE finding thrombus. Cardioversion canceled. Patient will have a cardioversion at a later date. 2. Dyspnea multifactorial 3. Acute diastolic heart failure. Continue Lasix IV push, Aldactone 25 mg twice daily. Continue aspirin 81 mg daily, Lipitor 20 mg daily. 4. Chronic hypoxic respiratory failure on home oxygen. 5. Severe COPD. 6. Debility and deconditioning. 7. Morbid obesity. 8. Hypertension, hypertensive cardiovascular disease. Continue verapamil 9. Noncompliance with home medication. 10. Obstructive sleep apnea with CPAP, noncompliance. 11. Mild intermittent asthma, stable. 12. Hyperlipidemia. Continue statin. 13. GERD. 14. Cellulitis of abdominal wall. Continue Unasyn and vancomycin. 15. Diabetes mellitus type 2. Continue Tradjenta, metformin, insulin scale before meals and at bedtime. Discharge plan: Discharge home tomorrow Impression and plan of care have been directed as dictated by the signing physician. Loreta Medellin nurse practitioner acting as scribe for signing physician.
[2018-09-11 17:16] LABS: Glucose,Whole Blood 137 mg/dL (75-99)
[2018-09-11] MEDS: FUROSEMIDE 20 MG TAB PO SCH (17:49)
[2018-09-11] MEDS: MONTELUKAST 10 MG TAB PO SCH (19:59)
[2018-09-11] MEDS: ATORVASTATIN 20 MG TAB PO SCH (20:00)
[2018-09-11] MEDS: traMADol 50 MG TAB PO PRN (20:00)
[2018-09-11 21:03] LABS: Glucose,Whole Blood 124 mg/dL (75-99)
[2018-09-12 00:23] VITALS: RESP 20
[2018-09-12] MEDS: traMADol 50 MG TAB PO PRN (02:44)
[2018-09-12] MEDS: SODIUM CHLORIDE 0.9% 1,000 ML IV SCH (05:46)
[2018-09-12 06:15] LABS: Glucose,Whole Blood 131 mg/dL (75-99)
[2018-09-12] MEDS: metFORMIN 500 MG TAB PO SCH (06:45)
[2018-09-12] MEDS: INSULIN ASPART (NovoLOG) 100 UNIT/ML VIAL SQ SCH (06:45)
[2018-09-12] MEDS: AMPICILLIN-SULBACTAM 3 GM in SODIUM CHLORIDE 0.9% 100 ML IVPB SCH (06:46)
[2018-09-12 08:10] LABS: Anisocytosis Slight; Basophils % (A) 0 %; Eosinophils # (A) 0.1 k/uL (0-0.7); Eosinophils % (A) 1 %; HGB 8.6 gm/dL (13.0-17.5); Hypochromasia Marked; Lymphocytes # (A) 0.6 k/uL (1.0-4.8); Lymphocytes % (A) 10 %; MCH 19.2 pg (25.0-35.0); MCHC 27.8 g/dL (31.0-37.0); Mean Platelet Volume 6.3; Microcytosis Marked; Monocytes # (A) 0.4 k/uL (0-1.0); Monocytes % (A) 7 %; Neutrophils # (A) 4.9 k/uL (1.3-7.7); Neutrophils % (A) 79 %; Platelet Count 262 k/uL (150-450); Poikilocytosis Moderate; RBC 4.49 m/uL (4.30-5.90); RDW 19.6 % (11.5-15.5); WBC 6.2 k/uL (3.8-10.6)
[2018-09-12] MEDS: IPRATROPIUM-ALBUTEROL 3 ML NEB INHALATION PRN ×2 (08:40→12:01)
[2018-09-12] MEDS ORDERED: VERAPAMIL SR 240 MG TABLET.ER PO SCH (09:00)
[2018-09-12] MEDS: AMIODARONE 200 MG TAB PO SCH (09:02)
[2018-09-12] MEDS: FUROSEMIDE 20 MG TAB PO SCH (09:02)
[2018-09-12] MEDS: SPIRONOLACTONE 25 MG TAB PO SCH (09:02)
[2018-09-12] MEDS: ASPIRIN 81 MG PO SCH (09:02)
[2018-09-12] MEDS: SENNOSIDES-DOCUSATE SODIUM 1 EACH TAB PO SCH (09:02)
[2018-09-12] MEDS: POTASSIUM CHLORIDE ER 20 MEQ TAB.ER PO SCH (09:02)
[2018-09-12] MEDS: LINAGLIPTIN 5 MG TABLET PO SCH (09:02)
[2018-09-12] MEDS: APIXABAN 5 MG TAB PO SCH (09:02)
[2018-09-12] MEDS: MULTIVITAMINS, THERA 1 EACH TAB PO SCH (09:03)
[2018-09-12] MEDS: NYSTATIN 100,000 UNIT/GM POWD 15 GM TOPICAL SCH (09:05)
[2018-09-12 09:10] VITALS: BP 118/81; TEMP 98.2
[2018-09-12 12:14] VITALS: PULSE 108
[2018-09-12 12:20] LABS: Glucose,Whole Blood 101 mg/dL (75-99)
[2018-09-12 14:18] VITALS: BMI 46.3
--- NOTE | 2018-09-12 15:01 | P.PN ---
Subjective Progress Note Date: 09/12/18 The patient is a 72-year-old male with past medical history of COPD, hypertension, diabetes, dyslipidemia who presented with complaints of increased edema. States he has had increasing edema in his legs extending up to his abdomen over the last few days. Has also had worsening shortness of breath with exertion. Denies any chest pain, palpitations, dizziness, lightheadedness, syncope. EKG showed atrial tachycardia with RVR. He has a questionable history of atrial fibrillation and states he was on warfarin 3 years ago but had to be taken because" his blood became too thin". He is a patient of Dr. Wasserman. He was started on IV Cardizem and IV heparin. He continues to be atrial flutter heart rate in the 90s low 100s. Blood pressure 105/70 with a heart rate of 80, 93% on 2 L of oxygen. White blood cell count 6.3, hemoglobin 8.7, platelet count 235. Creatinine today 0.6. 09/10/2018 Patient was seen and examined this morning, heart rate under better control, diuresed well through the night last night on the Lasix drip. Today we'll discontinue the Lasix drip, change the IV push Lasix. Discontinue IV amiodarone and start the patient on oral amiodarone. Continue IV heparin. Patient will be scheduled tomorrow to undergo a MIKE with subsequent cardioversion by Dr. Wasserman. 09/12/2018 Patient was seen and examined this morning, overall doing well. On oral diur etics. Anticipating possible discharge home today. Objective - Vital Signs Vital signs: Vital Signs Temp 98.2 F 09/12/18 09:06 Pulse 108 H 09/12/18 12:13 Resp 20 09/12/18 09:06 BP 118/81 09/12/18 09:06 Pulse Ox 97 09/12/18 09:06 Intake & Output 09/11/18 09/12/18 09/12/18 18:59 06:59 18:59 Intake Total 540 120 240 Output Total 600 750 Balance -60 120 -510 Weight 150.7 kg 150.7 kg Intake: IV 50 Intake, IV Titration 250 Amount Heparin Sod,Pork in 0.45% 250 NaCl 25,000 unit In 0.45 % NaCl 1 250ml.bag @ 6.8 UNITS/KG/HR 10.024 mls/hr IV .Q24H LIZBETH Rx#: [id number] Oral 240 120 240 Output: Urine 600 750 Other: Voiding Method Toilet Toilet Toilet Urinal Urinal Urinal # Voids 1 1 - Exam PHYSICAL EXAMINATION: GENERAL: 72-year-old gentleman in no acute distress at the time of my examination HEENT: Head is atraumatic, normocephalic. Pupils equal, round. Sclera anicteric. Conjunctiva are clear. Mucous membranes of the mouth are moist. Neck is supple. There is elevated jugular venous pressure. No carotid bruit is heard. HEART EXAMINATION: S1 and S2 irregularly irregular a systolic murmur is heard CHEST EXAMINATION:lungs reveal diminished air entry to bilateral bases ABDOMEN: Soft, obese, nontender. Bowel sounds are heard. No organomegaly noted. EXTREMITIES: 1+ peripheral pulses with trace to1+ evidence of peripheral edema and no calf tenderness noted. NEUROLOGIC patient is awake, alert and oriented 3 . . - Labs CBC & Chem 7: 09/12/18 07:43 09/11/18 03:37 Labs: Abnormal Lab Results - Last 24 Hours (Table) 09/11/18 09/11/18 09/12/18 Range/Units 16:39 21:01 06:14 Hgb (13.0-17.5) gm/dL Hct (39.0-53.0) % MCV (80.0-100.0) fL MCH (25.0-35.0) pg MCHC (31.0-37.0) g/dL RDW (11.5-15.5) % Lymphocytes # (1.0-4.8) k/uL POC Glucose (mg/dL) 137 H 124 H 131 H (75-99) mg/dL 09/12/18 09/12/18 Range/Units 07:43 11:57 Hgb 8.6 L (13.0-17.5) gm/dL Hct 31.0 L (39.0-53.0) % MCV 69.0 L (80.0-100.0) fL MCH 19.2 L (25.0-35.0) pg MCHC 27.8 L (31.0-37.0) g/dL RDW 19.6 H (11.5-15.5) % Lymphocytes # 0.6 L (1.0-4.8) k/uL POC Glucose (mg/dL) 101 H (75-99) mg/dL Microbiology - Last 24 Hours (Table) 09/06/18 23:20 Blood Culture - Preliminary Blood No Growth after 120 hours Assessment and Plan Plan: Assessment and plan #1 atypical atrial flutter #2 hyperlipidemia #3 hypertension #4 COPD #5 diabetes #6 diastolic congestive heart failure acute on chronic Plan From cardiology's perspective, patient may be able to be discharged home today. We'll make him a follow-up appointment with Dr. Wasserman post discharge. DNP note has been reviewed, I agree with a documented findings and plan of care. Patient was seen and examined.
--- NOTE | 2018-09-12 16:07 | P.DS ---
Providers Date of admission: 09/07/18 06:13 Expected date of discharge: 09/12/18 Attending physician: Melva Abrams Consults: 09/07/18 06:11 Consult Physician Stat Consulting Provider: Keny Escoto Consult Reason/Comments: new atrial flutter Do you want consulting provider notified?: Already Contacted 09/07/18 09:04 Consult Physician Routine Consulting Provider: David Goodwin Consult Reason/Comments: cellulitis Do you want consulting provider notified?: Yes Primary care physician: [facility] Course: This is 72 years old male with past medical history significant for chronic respiratory failure with hypoxia home oxygen dependent presented to the emergency department with shortness of breath. Patient stated normally he uses oxygen at the bedtime with his CPAP machine but don't use oxygen during the day as his saturation ranged between 89-92% on room air. Patient stated that his shortness breath has been worsening slowly and gradually with worsening lower extremity edema and today patient was having chest palpitation that he was concerned about and presented to the emergency department. Patient stated that his symptoms happened slowly and gradually was having difficulty laying in bed and stated that his been up sitting in his recliner all the time due to shortness breath. Patient stated that his lower extremity swelling has worsened despite taking Lasix 40 mg twice daily and stated that he's taking all his medication as his dispense to him. I spoke to the over the phone who stated that patient quit taking Coumadin 3 years ago after his knee surgery and easy bruising where the visiting nurse asked him to hold Coumadin and see farm loan inspector but they did not schedule appointment with farm loan inspector for the last 3 years at the time patient is well known to have atrial fibrillation/flutter. Patient stated that his shortness breath has slightly improved since yesterday but still unable to sleep in bed complaining of lower extremity weakness denied any recent upper respiratory symptoms denying dysuria denying productive cough and stated that his oxygen need stated the same. Patient denying tobacco alcohol or drug abuse 09/08: Patient has been seen by cardiology for age and tachycardia with RVR possible atrial flutter with plan to continue heparin and start oral anticoagulation tomorrow. Verapamil 180 mg daily for rate control. Patient continues to have significant shortness of breath and edema for which we will transition IV Lasix to Lasix drip and Ativan and Aldactone 25 mg twice daily. The patient is concerned regarding erythema on the abdomen that does not have any open ulceration. Dr. Goodwin is on consult and managing antibiotics. He is currently on Unasyn and vancomycin. Patient has been afebrile, heart rate 88, blood pressure 128/69, pulse ox 94% on 2 L nasal cannula. WBC 6.3, hemoglobin 8.7, platelet count 235. Blood sugar 121, creatinine 0.66. Echocardiogram reveals EF of 55-60%, moderate concentric left ventricular hypertrophy, mild tricuspid regurgitation, mild pulmonary hypertension. 09/09: Patient's he states he is feeling much better today and looks better to her. Patient states he is feeling better now. He apparently was in atrial fibrillation 140 and now running 80 bpm after starting amiodarone drip. Cardiology is planning for cardioversion. Patient has had some improvement of the lower extremity edema. Urine output has been adequate. Weight is down 2.2 kg. Patient has been continued on Lasix drip, Aldactone as well as heparin drip. Cardiology has increased verapamil SR to 3-60 mg daily. Patient is concerned about the mask on his CPAP and patient to follow-up with Dr. Sanders regarding CPAP machine. Patient is afebrile, heart rate currently 90, blood pr essure 107/61, pulse ox 90% on room air. Hemoglobin 8.9, creatinine 0.84. Blood culture no growth after 48 hours, urine culture finalized no growth. 09/10: Patient remains on Lasix drip as well as heparin drip and amiodarone drip. Patient continues to diurese well and he is feeling improved in general today. Shortness of breath is improved. He is scheduled for MIKE and cardioversion for tomorrow. Patient's heart rate is in the 80s, afebrile, blood pressure 117/73, pulse ox 96% on 2 L nasal cannula. 09/11: Patient is found sleeping in a recliner with nasal cannula O2 in place. He awakens easily. He has been transitioned to oral amiodarone and eliquis. Patient underwent MIKE which found normal left ventricle systolic function. Mild to moderate mitral regurgitation. Small left atrial appendage thrombus. Cardioversion was canceled and patient to continue anticoagulation. Plan will be for cardioversion down the road. Patient will be resumed on eliquis 5 mg twice daily and heparin drip discontinued. Patient states that his breathing is improved. Lower extremity edema is improving. Heart rate is currently controlled 90s to 110 in atrial fibrillation. 09/12: The patient has been seen by cardiology this morning clear for discharge. We will address amiodarone dosing for home. All new Prescriptions have been sent to his pharmacy. Dr. Goodwin has recommended Augmentin. We have added and hydrocortisone cream 0.5%. Patient will be discharged home today in stable condition. Discharge diagnoses: 1. Atrial flutter with rapid ventricular response with history of paroxysmal atrial fibrillation. 2. Dyspnea multifactorial 3. Acute diastolic heart failure. 4. Chronic hypoxic respiratory failure on home oxygen. 5. Severe COPD. 6. Debility and deconditioning. 7. Morbid obesity. 8. Hypertension, hypertensive cardiovascular disease. 9. Noncompliance with home medication. 10. Obstructive sleep apnea with CPAP, noncompliance. 11. Mild intermittent asthma, stable. 12. Hyperlipidemia. Continue statin. 13. GERD. 14. Cellulitis of abdominal wall. 15. Diabetes mellitus type 2. Discharge plan: home Impression and plan of care have been directed as dictated by the signing physician. Loreta Medellin nurse practitioner acting as scribe for signing physician. Patient Condition at Discharge: Good Plan - Discharge Summary Discharge Rx Participant: Yes New Discharge Prescriptions: New Apixaban [Eliquis] 5 mg PO BID #60 tab Spironolactone [Aldactone] 25 mg PO BID #60 tab Amoxicillin/Potassium Clav [Augmentin 875-125 Tablet] 1 each PO Q12HR #10 tab Hydrocortisone [Hydrocortisone 0.05%] 1 applic TOPICAL BID #28 gm Verapamil Sr [Isoptin Sr] 240 mg PO BID #60 tablet.er Furosemide [Lasix] 60 mg PO BID@0900,1600 #180 tab Nystatin 100,000 Unit/gm Powd [Mycostatin Powder] 1 applic TOPICAL BID #0 applic predniSONE 40 mg PO DAILY #14 tab Amiodarone [Cordarone] 200 mg PO BID #60 tab Continue Multivitamin [Men's Multi-Vitamin] 1 tab PO DAILY Aspirin EC [Ecotrin Low Dose] 81 mg PO DAILY #0 tablet. Atorvastatin [Lipitor] 20 mg PO HS #30 tab Montelukast [Singulair] 10 mg PO HS #30 tab Potassium Chloride [K-Tab ER] 20 meq PO BID Albuterol Sulfate [Proair Respiclick] 1 puff INHALATION RT-BID Ipratropium-Albuterol Nebulize [Duoneb 0.5 mg-3 mg/3 ml Soln] 3 ml INHALATION RT-QID PRN PRN Reason: sob Sennosides-Docusate Sodium [Senokot-S] 1 tab PO BID #60 tablet sitaGLIPtin [Januvia] 100 mg PO DAILY metFORMIN HCL 1,000 mg PO AC-BRKFST metFORMIN HCL 1,500 mg PO AC-SUPPER Umeclidinium Brm/Vilanterol Tr [Anoro Ellipta 62.5-25 Mcg INH] 1 puff INHALATION RT-DAILY Ferrous Sulfate [Iron (65 MG Elemental)] 325 mg PO DAILY Discontinued Furosemide [Lasix] 40 mg PO BID Meloxicam [Mobic] 15 mg PO DAILY Discharge Medication List Multivitamin [Men's Multi-Vitamin] 1 tab PO DAILY 10/08/14 [History] Aspirin EC [Ecotrin Low Dose] 81 mg PO DAILY #0 tablet.dr 01/11/15 [Rx] Atorvastatin [Lipitor] 20 mg PO HS #30 tab 01/11/15 [Rx] Montelukast [Singulair] 10 mg PO HS #30 tab 01/11/15 [Rx] Potassium Chloride [K-Tab ER] 20 meq PO BID 11/12/15 [History] Albuterol Sulfate [Proair Respiclick] 1 puff INHALATION RT-BID 01/08/17 [History] Ipratropium-Albuterol Nebulize [Duoneb 0.5 mg-3 mg/3 ml Soln] 3 ml INHALATION RT-QID PRN 01/08/17 [History] Sennosides-Docusate Sodium [Senokot-S] 1 tab PO BID #60 tablet 01/14/17 [Rx] Ferrous Sulfate [Iron (65 MG Elemental)] 325 mg PO DAILY 09/07/18 [History] Umeclidinium Brm/Vilanterol Tr [Anoro Ellipta 62.5-25 Mcg INH] 1 puff INHALATION RT-DAILY 09/07/18 [History] metFORMIN HCL 1,000 mg PO AC-BRKFST 09/07/18 [History] metFORMIN HCL 1,500 mg PO AC-SUPPER 09/07/18 [History] sitaGLIPtin [Januvia] 100 mg PO DAILY 09/07/18 [History] Apixaban [Eliquis] 5 mg PO BID #60 tab 09/11/18 [Rx] Amiodarone [Cordarone] 200 mg PO BID #60 tab 09/12/18 [Rx] Amoxicillin/Potassium Clav [Augmentin 875-125 Tablet] 1 each PO Q12HR #10 tab 09/12/18 [Rx] Furosemide [Lasix] 60 mg PO BID@0900,1600 #180 tab 09/12/18 [Rx] Hydrocortisone [Hydrocortisone 0.05%] 1 applic TOPICAL BID #28 gm 09/12/18 [Rx] Nystatin 100,000 Unit/gm Powd [Mycostatin Powder] 1 applic TOPICAL BID #0 applic 09/12/18 [Rx] Spironolactone [Aldactone] 25 mg PO BID #60 tab 09/12/18 [Rx] Verapamil Sr [Isoptin Sr] 240 mg PO BID #60 tablet.er 09/12/18 [Rx] predniSONE 40 mg PO DAILY #14 tab 09/12/18 [Rx] Follow up Appointment(s)/Referral(s): [facility], [NON-STAFF] - 1 Week Nolberto Cevallos DO [Primary Care Provider] - 09/22/18 11:30 am (Saturday) Albert Wasserman MD [STAFF PHYSICIAN] - 09/18/18 2:45 pm () Patient Instructions/Handouts: Atrial Flutter (DC), Transesophageal Echocardiogram (DC), Safe Use of Anticoagulants (DC) Activity/Diet/Wound Care/Special Instructions: Eliquis is covered - copay $47 Discharge Disposition: HOME WITH HOME HEALTH SERVICES
--- NOTE | 2018-09-13 14:04 | P.PN ---
Progress Note - Text Progress Note Date: 09/13/18 received call the patient is having continued pain to his lower extremities and was on tramadol while he was hospitalized. Patient is requesting a prescription for tramadol. We will be prescribing a prescription for 3 day course. Patient understands the opioid start talking points and verbalized over the phone. Map score 0. the patient will need to follow-up with Dr. Cevallos for additional medication/prescription.
== END 2018-09-12 14:51 | disposition home health service (06) | DRG 308 ==
LOC: EC 21:56 → 3SCARD 09-07 06:13
PROVIDERS: ADMIT Internal Medicine; ATTEND Internal Medicine
DX: I48.4 Atypical atrial flutter (principal); I50.33 Acute on chronic diastolic (congestive) heart failure; J44.1 Chronic obstructive pulmonary disease with (acute) exacerbation; L03.311 Cellulitis of abdominal wall; J96.11 Chronic respiratory failure with hypoxia; Z68.42 Body mass index [BMI] 45.0-49.9, adult; I11.0 Hypertensive heart disease with heart failure; I48.0 Paroxysmal atrial fibrillation; E66.01 Morbid (severe) obesity due to excess calories; E11.9 Type 2 diabetes mellitus without complications; I51.3 Intracardiac thrombosis, not elsewhere classified; K21.9 Gastro-esophageal reflux disease without esophagitis; E78.5 Hyperlipidemia, unspecified; D75.1 Secondary polycythemia; J45.20 Mild intermittent asthma, uncomplicated; R53.81 Other malaise; I34.0 Nonrheumatic mitral (valve) insufficiency; D64.9 Anemia, unspecified; I45.9 Conduction disorder, unspecified; I27.20 Pulmonary hypertension, unspecified; G47.33 Obstructive sleep apnea (adult) (pediatric); L40.9 Psoriasis, unspecified; I07.1 Rheumatic tricuspid insufficiency; Z99.81 Dependence on supplemental oxygen; Z91.14 Patient's other noncompliance with medication regimen; Z79.51 Long term (current) use of inhaled steroids; Z79.899 Other long term (current) drug therapy; Z79.82 Long term (current) use of aspirin; Z79.01 Long term (current) use of anticoagulants; Z79.1 Long term (current) use of non-steroidal anti-inflammatories (NSAID); Z79.84 Long term (current) use of oral hypoglycemic drugs; Z87.891 Personal history of nicotine dependence; Z82.49 Family history of ischemic heart disease and other diseases of the circulatory system; Z91.81 History of falling; Z91.19 Patient's noncompliance with other medical treatment and regimen; Z99.89 Dependence on other enabling machines and devices; Z90.49 Acquired absence of other specified parts of digestive tract; Z98.890 Other specified postprocedural states; Z80.9 Family history of malignant neoplasm, unspecified
CPT/HCPCS: 36415; 71046; 74177; 80048; 80053; 80202; 81003; 82565; 83036; 83605; 83735; 83880; 84443; 84484; 85025; 85379; 85610; 85730; 86850; 86900; 86901; 87040; 87086; 93005; 93306; 93312; 93320; 93325; 94640; 94760; 96365; 96366; 96368; 96375; 96376; 99285

== ENCOUNTER 2018-09-16 10:00 | Inpatient (IN) | payer MEDICARE ==
[2018-09-16] MEDS ORDERED: HUMAN PROTHROMBIN COMPLX 500 UNIT/16 ML VIAL IV ONE (10:36)
[2018-09-16] MEDS ORDERED: SODIUM CHLORIDE 0.9% 1,000 ML IV STA ×2 (10:38→14:01)
[2018-09-16] MEDS ORDERED: MORPHINE SULFATE 4 MG/ML SYRINGE IVP STA ×2 (10:38→12:49)
[2018-09-16] MEDS ORDERED: ONDANSETRON 4 MG/2 ML VIAL IVP STA (10:38)
--- NOTE | 2018-09-16 10:57 | ED ---
Abdominal Pain HPI <PaulPan - Last Filed: 09/16/18 13:49> - General Source: patient, EMS Mode of arrival: EMS Limitations: no limitations <Angelica Raza - Last Filed: 09/16/18 15:15> - General Chief Complaint: Abdominal Pain Stated Complaint: abdominal pain Time Seen by Provider: 09/16/18 10:16 - History of Present Illness Initial Comments: Patient is a 72-year-old male presenting to the emergency department via EMS with complaints of severe abdominal pain 2 days. Patient has multiple medical problems including COPD, CHF, DM2 and is currently on eliquis for A. fib. Patient states his abdominal pain started yesterday and has progressed since then. Patient states he is having a hard time breathing because of his abdominal pain. Patient has been trying to have a bowel movement for 2 days and has been unsuccessful. Patient was recently in the hospital for abdominal cellulitis and was discharged 3 days ago. Patient denies chest pain, nausea, vomiting. No other complaints at this time. (Angelica Raza) - Related Data Home Medications Medication Instructions Recorded Confirmed Multivitamin [Men's Multi-Vitamin] 1 tab PO DAILY 10/08/14 09/16/18 Potassium Chloride [K-Tab ER] 20 meq PO BID 11/12/15 09/16/18 Albuterol Sulfate [Proair 1 puff INHALATION RT-BID 01/08/17 09/16/18 Respiclick] Ipratropium-Albuterol Nebulize 3 ml INHALATION RT-QID PRN 01/08/17 09/16/18 [Duoneb 0.5 mg-3 mg/3 ml Soln] Ferrous Sulfate [Iron (65 MG 325 mg PO DAILY 09/07/18 09/16/18 Elemental)] Umeclidinium Brm/Vilanterol Tr 1 puff INHALATION RT-DAILY 09/07/18 09/16/18 [Anoro Ellipta 62.5-25 Mcg INH] metFORMIN HCL 1,000 mg PO AC-BRKFST 09/07/18 09/16/18 metFORMIN HCL 1,500 mg PO AC-SUPPER 09/07/18 09/16/18 sitaGLIPtin [Januvia] 100 mg PO DAILY 09/07/18 09/16/18 Amoxicillin/Potassium Clav 1 tab PO Q12HR 09/16/18 09/16/18 [Augmentin 875-125 Tablet] Previous Rx's Medication Instructions Recorded Aspirin EC [Ecotrin Low Dose] 81 mg PO DAILY #0 tablet. 01/11/15 Atorvastatin [Lipitor] 20 mg PO HS #30 tab 01/11/15 Montelukast [Singulair] 10 mg PO HS #30 tab 01/11/15 Sennosides-Docusate Sodium 1 tab PO BID #60 tablet 01/14/17 [Senokot-S] Apixaban [Eliquis] 5 mg PO BID #60 tab 09/11/18 Amiodarone [Cordarone] 200 mg PO BID #60 tab 09/12/18 Furosemide [Lasix] 60 mg PO BID@0900,1600 #180 tab 09/12/18 Hydrocortisone [Hydrocortisone 1 applic TOPICAL BID #28 gm 09/12/18 0.05%] Nystatin 100,000 Unit/gm Powd 1 applic TOPICAL BID #0 applic 09/12/18 [Mycostatin Powder] Spironolactone [Aldactone] 25 mg PO BID #60 tab 09/12/18 Verapamil Sr [Isoptin Sr] 240 mg PO BID #60 tablet.er 09/12/18 predniSONE 40 mg PO DAILY #14 tab 09/12/18 Allergies Allergy/AdvReac Type Severity Reaction Status Date / Time acetaminophen [From [place]] AdvReac see Verified 09/16/18 10:25 comments hydrocodone [From [place]] AdvReac see Verified 09/16/18 10:25 comments warfarin [From Coumadin] AdvReac SEE Verified 09/16/18 10:25 COMMENTS Review of Systems ROS Other: All systems not noted in ROS Statement are negative. <Pan Miller - Last Filed: 09/16/18 13:49> ROS Other: All systems not noted in ROS Statement are negative. <Angelica Raza - Last Filed: 09/16/18 15:15> ROS Statement: Those systems with pertinent positive or pertinent negative responses have been documented in the HPI. Past Medical History Past Medical History: Atrial Fibrillation, Asthma, Blood Disorder, Chest Pain / Angina, COPD, GERD/Reflux, Hyperlipidemia, Hypertension, Skin Disorder, Sleep Apnea/CPAP/BIPAP Additional Past Medical History / Comment(s): psoriasis, hemoglobin [place] with polycythemia, pericardial effusion, hx hiatal hernia, hx bowel obstruction, uses oxygen 2L at HS, 09/07/2018-cellulitis History of Any Multi-Drug Resistant Organisms: None Reported Past Surgical History: Appendectomy, Hernia Repair Additional Past Surgical History / Comment(s): Laparoscopic lucia fundloplasty and mesh repair of hiatal hernia. arthroscopy left knee Past Anesthesia/Blood Transfusion Reactions: Motion Sickness Additional Past Anesthesia/Blood Transfusion Reaction / Comment(s): . Past Psychological History: No Psychological Hx Reported Smoking Status: Former smoker Past Alcohol Use History: None Reported Past Drug Use History: None Reported - Past Family History Sister(s) Family Medical History: Deep Vein Thrombosis (DVT) Brother(s) Family Medical History: Myocardial Infarction ([place]) Additional Family Medical History / Comment(s): Brother had a [place] at age 71 yrs. Father Family Medical History: Cancer Additional Family Medical History / Comment(s): . Mother Family Medical History: Cancer Additional Family Medical History / Comment(s): . <Angelica Raza - Last Filed: 09/16/18 15:15> General Exam Limitations: no limitations <Angelica Raza - Last Filed: 09/16/18 15:15> - General Exam Comments Initial Comments: GENERAL: Disheveled appearance, appears to be in pain. HEAD: Atraumatic, normocephalic. EYES: Pupils equal round and reactive to light, extraocular movements intact, sclera anicteric, conjunctiva are normal. ENT: TMs normal, nares patent, oropharynx clear without exudates. Moist mucous membranes. NECK: Normal range of motion, supple without lymphadenopathy or JVD. LUNGS: Breath sounds clear to auscultation bilaterally and equal. No wheezes rales or rhonchi. HEART: Irregular rate and rhythm without murmurs, rubs or gallops. ABDOMEN: Distended, generalized abdominal tenderness, hypoactive bowel sounds. No erythema. : Deferred EXTREMITIES: Normal range of motion, no pitting or edema. No clubbing or cyanosis. NEUROLOGICAL: Cranial nerves II through XII grossly intact. Normal speech, normal gait. PSYCH: Normal mood, normal affect. SKIN: Warm, Dry, normal turgor, no rashes or lesions noted. (Angelica Raza) Course <Pan Miller - Last Filed: 09/16/18 13:49> Vital Signs 09/16/18 09/16/18 09/16/18 10:05 10:06 10:10 Temperature 97.8 F Pulse Rate 130 H 130 H Respiratory 19 34 H Rate Blood Pressure 119/79 119/79 O2 Sat by Pulse 95 95 96 Oximetry 09/16/18 09/16/18 09/16/18 10:20 10:30 10:40 Temperature Pulse Rate 130 H 126 H 120 H Respiratory 37 H 36 H 39 H Rate Blood Pressure 119/79 112/79 112/79 O2 Sat by Pulse 96 95 96 Oximetry 09/16/18 09/16/18 09/16/18 10:50 11:00 11:10 Temperature Pulse Rate 122 H 125 H 113 H Respiratory 34 H 35 H 38 H Rate Blood Pressure 130/75 130/75 O2 Sat by Pulse 95 95 Oximetry 09/16/18 09/16/18 09/16/18 11:11 11:20 11:30 Temperature 97.9 F Pulse Rate 124 H 130 H 112 H Respiratory 32 H 35 H 33 H Rate Blood Pressure 106/71 106/71 110/72 O2 Sat by Pulse 95 97 94 L Oximetry 09/16/18 09/16/18 09/16/18 11:40 11:50 12:00 Temperature Pulse Rate 130 H 130 H 111 H Respiratory 31 H 26 H 23 Rate Blood Pressure 110/72 110/63 110/63 O2 Sat by Pulse 94 L 95 94 L Oximetry 09/16/18 09/16/18 09/16/18 12:10 12:20 12:30 Temperature Pulse Rate 115 H 112 H Respiratory 28 H 31 H Rate Blood Pressure 111/78 111/78 114/78 O2 Sat by Pulse 95 95 Oximetry 09/16/18 09/16/18 09/16/18 12:40 12:50 13:00 Temperature Pulse Rate 115 H 105 H 128 H Respiratory 35 H 30 H 35 H Rate Blood Pressure 114/78 115/69 115/69 O2 Sat by Pulse 98 94 L 94 L Oximetry 09/16/18 09/16/18 09/16/18 13:10 13:20 13:30 Temperature Pulse Rate 123 H 110 H 110 H Respiratory 25 H 31 H 25 H Rate Blood Pressure 117/71 117/71 104/63 O2 Sat by Pulse 94 L 93 L 94 L Oximetry 07/09/16/18 09/16/18 13:40 13:50 14:00 Temperature Pulse Rate 98 96 110 H Respiratory 31 H 31 H 22 Rate Blood Pressure 104/63 O2 Sat by Pulse 94 L 94 L Oximetry 09/16/18 09/16/18 09/16/18 14:10 14:20 14:30 Temperature Pulse Rate 88 105 H 96 Respiratory 33 H 26 H 27 H Rate Blood Pressure 97/70 97/70 98/70 O2 Sat by Pulse Oximetry 09/16/18 09/16/18 09/16/18 14:40 14:50 15:00 Temperature Pulse Rate 89 95 96 Respiratory 20 35 H 31 H Rate Blood Pressure 98/70 101/65 101/65 O2 Sat by Pulse 94 L 94 L 93 L Oximetry - Reevaluation(s) Reevaluation #1: 09/16/18 13:49 D supervision: I proceeded [id number] evaluation the patient did discuss the findings with him he said abdominal pain for 2 days has abdominal distention CAT scan does show evidence of a pneumoperitoneum. I did discuss the case with Dr. Monterroso from radiology as well as Dr. De Leon. Patient will be admitted (Pan Miller) Medical Decision Making - Lab Data Result diagrams: 09/16/18 11:05 09/16/18 11:05 <Pan Miller - Last Filed: 09/16/18 13:49> - Lab Data Result diagrams: 09/16/18 11:05 09/16/18 11:05 <Angelica Raza - Last Filed: 09/16/18 15:15> - Medical Decision Making Patient is a 72-year-old male with complaints of abdominal pain 2 days. P atient has multiple comorbidities including CHF, COPD, DM 2, and currently on a liquid as for A. fib. On exam patient is has extreme amount of abdominal pain, abdominal distention. Patient has not had a bowel movement in 2 days. CBC shows normal white count, hemoglobin is 10.6 which is improved from 2 days ago. Lactic acid is 4.0, BUN/creatinine is 36, 1.60. CT of the abdomen was obtained without contrast due to severe decrease in kidney function from 2 days ago. Bowel ischemia cannot be excluded. No clear obstruction, possible perforation in the sigmoid colon. Patient was given fluids, pain control, and dose of Zosyn. Case discussed with Dr. Miller. Dr. De Leon was contacted and is aware of the patient. Patient be transferred for surgery. (Angelica Raza) - Lab Data Lab Results 09/16/18 09/16/18 09/16/18 Range/Units 11:05 11:05 11:05 WBC 5.9 (3.8-10.6) k/uL RBC 5.65 (4.30-5.90) m/uL Hgb 10.6 L (13.0-17.5) gm/dL Hct 38.9 L (39.0-53.0) % MCV 68.8 L (80.0-100.0) fL MCH 18.8 L (25.0-35.0) pg MCHC 27.3 L (31.0-37.0) g/dL RDW 19.9 H (11.5-15.5) % Plt Count 472 H (150-450) k/uL Neutrophils % (Manual) 85 % Band Neutrophils % 10 % Monocytes % (Manual) 6 % Neutrophils # (Manual) 5.60 (1.3-7.7) k/uL Monocytes # (Manual) 0.35 (0-1.0) k/uL Nucleated RBCs 1 H (0-0) /100 WBC Manual Slide Review Performed Polychromasia Present Hypochromasia Marked Poikilocytosis Moderate Anisocytosis Slight Microcytosis Marked PT (9.0-12.0) sec INR (<1.2) APTT (22.0-30.0) sec Sodium 133 L (137-145) mmol/L Potassium 5.4 H (3.5-5.1) mmol/L Chloride 96 L (98-107) mmol/L Carbon Dioxide 20 L (22-30) mmol/L Anion Gap 17 mmol/L BUN 36 H (9-20) mg/dL Creatinine 1.60 H (0.66-1.25) mg/dL Est GFR (CKD-EPI)AfAm 50 (>60 ml/min/1.73 sqM) Est GFR (CKD-EPI)NonAf 43 (>60 ml/min/1.73 sqM) Glucose 178 H (74-99) mg/dL Lactic Ac Sepsis Rflx Plasma Lactic Acid Roberto 4.0 H* (0.7-2.0) mmol/L Calcium 8.9 (8.4-10.2) mg/dL Total Bilirubin 1.2 (0.2-1.3) mg/dL AST 78 H (17-59) U/L ALT 24 (21-72) U/L Alkaline Phosphatase 62 (38-126) U/L Total Protein 6.7 (6.3-8.2) g/dL Albumin 3.9 (3.5-5.0) g/dL Amylase 48 (30-110) U/L Lipase 73 (23-300) U/L 09/16/18 09/16/18 Range/Units 11:05 12:07 WBC (3.8-10.6) k/uL RBC (4.30-5.90) m/uL Hgb (13.0-17.5) gm/dL Hct (39.0-53.0) % MCV (80.0-100.0) fL MCH (25.0-35.0) pg MCHC (31.0-37.0) g/dL RDW (11.5-15.5) % Plt Count (150-450) k/uL Neutrophils % (Manual) % Band Neutrophils % % Monocytes % (Manual) % Neutrophils # (Manual) (1.3-7.7) k/uL Monocytes # (Manual) (0-1.0) k/uL Nucleated RBCs (0-0) /100 WBC Manual Slide Review Polychromasia Hypochromasia Poikilocytosis Anisocytosis Microcytosis PT 15.2 H (9.0-12.0) sec INR 1.5 H (<1.2) APTT 28.4 (22.0-30.0) sec Sodium (137-145) mmol/L Potassium (3.5-5.1) mmol/L Chloride (98-107) mmol/L Carbon Dioxide (22-30) mmol/L Anion Gap mmol/L BUN (9-20) mg/dL Creatinine (0.66-1.25) mg/dL Est GFR (CKD-EPI)AfAm (>60 ml/min/1.73 sqM) Est GFR (CKD-EPI)NonAf (>60 ml/min/1.73 sqM) Glucose (74-99) mg/dL Lactic Ac Sepsis Rflx Y Plasma Lactic Acid Roberto (0.7-2.0) mmol/L Calcium (8.4-10.2) mg/dL Total Bilirubin (0.2-1.3) mg/dL AST (17-59) U/L ALT (21-72) U/L Alkaline Phosphatase (38-126) U/L Total Protein (6.3-8.2) g/dL Albumin (3.5-5.0) g/dL Amylase (30-110) U/L Lipase (23-300) U/L Disposition <Pan Miller - Last Filed: 09/16/18 13:49> Is patient prescribed a controlled substance at d/c from ED?: No Decision Date: 09/16/18 Decision Time: 14:07 <Angelica Raza - Last Filed: 09/16/18 15:15> Clinical Impression: Acute abdomen, Perforated viscus, Renal insufficiency syndrome Disposition: ADMITTED IP TO THIS HOSP Condition: Fair
[2018-09-16 11:42] LABS: Albumin 3.9 g/dL (3.5-5.0); Calcium 8.9 mg/dL (8.4-10.2); Total Bilirubin 1.2 mg/dL (0.2-1.3); Total Protein 6.7 g/dL (6.3-8.2)
[2018-09-16 11:45] LABS: INR 1.5 (<1.2); Partial Thromboplastin Time 28.4 sec (22.0-30.0); Prothrombin Time 15.2 sec (9.0-12.0)
[2018-09-16 11:53] LABS: Potassium 5.4 mmol/L (3.5-5.1)
[2018-09-16 11:54] LABS: Anisocytosis Slight; HCT 38.9 % (39.0-53.0); HGB 10.6 gm/dL (13.0-17.5); Hypochromasia Marked; MCH 18.8 pg (25.0-35.0); MCHC 27.3 g/dL (31.0-37.0); MCV 68.8 fL (80.0-100.0); Mean Platelet Volume 6.8; Microcytosis Marked; Platelet Count 472 k/uL (150-450); Poikilocytosis Moderate; RBC 5.65 m/uL (4.30-5.90); RDW 19.9 % (11.5-15.5)
[2018-09-16 12:33] LABS: Band Neutrophils % 10 %; Monocytes # (M) 0.35 k/uL (0-1.0); Neutrophils % (M) 85 %; Nucleated Red Blood Cells 1 /100 WBC (0-0); Polychromasia Present; Total Cells Counted 200; WBC 5.9 k/uL (3.8-10.6)
--- NOTE | 2018-09-16 13:33 | CT ---
EXAMINATION TYPE: CT abdomen pelvis wo con DATE OF EXAM: 09/16/2018 COMPARISON: Prior CT 09/07/2018 HISTORY: Abdominal pain and distention CT DLP: 1924.4 mGycm Automated exposure control for dose reduction was used. TECHNIQUE: Helical acquisition of images from the lung bases through the pelvis. FINDINGS: Increased density within the subcutaneous fat compatible with anasarca. Lack of intravenous contrast could compromise sensitivity. LUNG BASES: There are dependent atelectatic changes present, thickened pleural bands. AORTA: No significant abnormality is appreciated. LIVER/GB: No significant abnormality is appreciated. PANCREAS: No significant abnormality is seen. SPLEEN: No significant abnormality is seen. ADRENALS: No significant abnormality is seen. KIDNEYS: No significant abnormality is seen. REPRODUCTIVE ORGANS: No prostate is enlarged.. URINARY BLADDER: No significant abnormality is seen. BOWEL: Multiple abnormal dilated small and large bowel loops are present. Air-filled stomach is also noted, there are air distended loops of colon. Sigmoid colon appears redundant. FREE AIR: There is pneumoperitoneum present. ASCITES: There is progression in the amount of fluid within the abdomen, small amount of ascites is present PELVIC ADENOPATHY: None visualized. RETROPERITONEAL ADENOPATHY: No Retroperitoneal Adenopathy visible. OSSEOUS STRUCTURES: No significant abnormality is seen. IMPRESSION: PNEUMOPERITONEUM. BOWEL DISTENTION. Bowel ischemia not excluded. Noncontrast exam. No clear obstructi on, findings may be due to ileus. Report relayed to the emergency Center physician at the time of int erpretation at exam.
[2018-09-16] MEDS ORDERED: PIPERACILLIN-TAZOBACTAM 3.375 GM in SODIUM CHLORIDE 0.9% 100 ML IVPB STA (13:38)
[2018-09-16] MEDS ORDERED: HYDROmorphone 1 MG/ML 1 ML SYRINGE IVP PRN (13:58)
[2018-09-16] MEDS ORDERED: traMADol 50 MG TAB PO PRN (13:58)
[2018-09-16] MEDS ORDERED: NALOXONE 0.4 MG/ML 1 ML VIAL IV PRN (13:58)
[2018-09-16] MEDS ORDERED: ACETAMINOPHEN TAB 325 MG TAB PO PRN (13:58)
[2018-09-16] MEDS ORDERED: ONDANSETRON 4 MG/2 ML VIAL IVP PRN (13:58)
[2018-09-16] MEDS ORDERED: SODIUM CHLORIDE 0.9% 1,000 ML IV SCH (14:00)
[2018-09-16 15:00] LABS: Appearance,Urine Clear (Clear); Bilirubin,Urine Negative (Negative); Blood,Urine Negative (Negative); Color,Urine Yellow; Glucose,Urine (UA) Negative (Negative); Hyaline Casts,Urine 10 /lpf (0-2); Ketones,Urine Negative (Negative); Leukocyte Esterase,Urine Negative (Negative); Mucus,Urine Occasional /hpf; Nitrite,Urine Negative (Negative); PH, Urine 5.5 (5.0-8.0); Protein,Urine 1+ (Negative); RBC,Urine <1 /hpf (0-5); Specific Gravity,Urine 1.018 (1.001-1.035)
[2018-09-16] MEDS ORDERED: Kcentra PER PHARMACY 1 EACH MISC MISCELLANE ONE (15:03)
[2018-09-16] MEDS ORDERED: EMPTY BAG 1 BAG with HUMAN PROTHROMBIN COMPLX 2,172 UNIT IV ONE (15:15)
[2018-09-16] MEDS ORDERED: IV FLUID CONTINUATION 1,000 ML IV ONE (15:16)
[2018-09-16 15:23] LABS: Glucose,Whole Blood 159 mg/dL (75-99)
[2018-09-16] MEDS: fentaNYL (PF) 50 MCG/ML 2 ML AMP IVP ONE ×2 (15:35→15:51)
--- NOTE | 2018-09-16 15:37 | P.GSHP ---
History of Present Illness H&P Date: 09/16/18 Chief Complaint: abdominal pain CHIEF COMPLAINT: abdominal pain HISTORY OF PRESENT ILLNESS: 72-year-old male who presented to the emergency room with severe abdominal pain. Patient reports feeling constipated over the past week and has not had a bowel movement in approximately 6 or 7 days. He reports he had his gave him an enema yesterday and again this morning. Patient states he felt a "pop" in the lower portion of his abdomen this morning followed by severe abdominal pain. Patient also reports an episode of emesis yesterday. CAT scan was completed in the emergency room revealing pneumoperitoneum. The patient was examined at the bedside in the emergency room. Patient is acutely ill-appearing. He is noticeably uncomfortable and fidgeting on the stretcher. he continues to report severe abdominal pain. Patient reports abdominal distention and states his abdomen is about twice the size of his baseline. Upon examination in the emergency room, patient is hypotensive with a systolic blood pressure in the 90s. Heart rate is ranging between 110 and 130. Patient has received 1 L fluid bolus prior to my examination. Second liter of normal saline ordered. Zosyn ordered and infusing. Blood cultures also ordered and being drawn by ER nurse. patient currently has a 22-gauge IV for peripheral access. Spoke with anesthesia department who will place central line prior to OR. The patient was recently hospitalized for atrial fibrillation. He was started on Eliquis at that time. Patient reports taking his Eliquis this morning at 6:30. PAST MEDICAL HISTORY: See list. PAST SURGICAL HISTORY: See list. SOCIAL HISTORY: No illicit drug use. REVIEW OF SYSTEMS: CONSTITUTIONAL: Denies fever or chills. HEENT: Denies blurred vision, vision changes, or eye pain. CARDIOVASCULAR: Denies chest pain or pressure. RESPIRATORY: reports shortness of breath secondary to abdominal pain GASTROINTESTINAL: Refer to HPI for pertinent findings HEMATOLOGIC: Denies bleeding disorders. Recently started on Eliquis for atrial fibrillation GENITOURINARY: Denies any blood in urine. SKIN: Denies pruitis. Denies rash. PHYSICAL EXAM: VITAL SIGNS: Reviewed. GENERAL: Well-developed in acute distress. appears acutely ill and uncomfortable. HEENT: No sclera icterus. Extraocular movements grossly intact. Dry buccal mucosa with evidence of old blood. Head is atraumatic, normocephalic. ABDOMEN: Abdomen distended. Firm. Tenderness with palpation. NEUROLOGIC: Alert and oriented. Cranial nerves II through XII grossly intact. LABORATORY DATA: laboratory data on admission reveals white count 5.9. Hemoglobin 10.6. Sodium 133. Potassium 5.4. BUN 36. Creatinine 1.60. Lactic acid 4.0. AST 78. ALT 24. IMAGING: CT abdomen and pelvis reveals pneumoperitoneum. Multiple abnormal dilated small and large bowel loops. Bowel ischemia not excluded. ASSESSMENT: 1. Abdominal pain 2. Pneumoperitoneum 3. Peritonitis 4. Sepsis, present on admission secondary to above 5. History of atrial fibrillation, on long-term anticoagulation with Eliquis 6. History of bowel obstruction 7. History of laparoscopic Lucia fundoplication 8. History of hiatal hernia repair with mesh PLAN: 1. NPO 2. Second liter 0.9NS bolus infusing. continue maintenance fluids at 200 mL an hour after bolus 3. Insert NG tube to low intermittent suction 4. Insert molina catheter for accurate I&O 5. Anesthesia to place central line in preop 6. Andexxa not available at this facility. Spoke with pharmacy. Kcentra ordered secondary to patient taking Eliquis this morning 7. Blood cultures 8. Continue antibiotics 9. Consult Dr. Benedict, infectious disease 10. Consult Dr. Rich for medical management 11. Patient to undergo exploratory laparotomy today with Dr. De Leon 12. Patient to go to ICU postoperatively. Dr. Red consulted for ICU management. Nurse practitioner note has been reviewed by physician. Signing provider agrees with the documented findings, assessment, and plan of care. Past Medical History Past Medical History: Atrial Fibrillation, Asthma, Blood Disorder, Chest Pain / Angina, COPD, GERD/Reflux, Hyperlipidemia, Hypertension, Skin Disorder, Sleep Apnea/CPAP/BIPAP Additional Past Medical History / Comment(s): psoriasis, hemoglobin [place] with polycythemia, pericardial effusion, hx hiatal hernia, hx bowel obstruction, uses oxygen 2L at , 09/07/2018-cellulitis History of Any Multi-Drug Resistant Organisms: None Reported Past Surgical History: Appendectomy, Hernia Repair Additional Past Surgical History / Comment(s): Laparoscopic lucia fundloplasty and mesh repair of hiatal hernia. arthroscopy left knee Past Anesthesia/Blood Transfusion Reactions: Motion Sickness Additional Past Anesthesia/Blood Transfusion Reaction / Comment(s): . Past Psychological History: No Psychological Hx Reported Smoking Status: Former smoker Past Alcohol Use History: None Reported Past Drug Use History: None Reported - Past Family History Sister(s) Family Medical History: Deep Vein Thrombosis (DVT) Brother(s) Family Medical History: Myocardial Infarction ([place]) Additional Family Medical History / Comment(s): Brother had a [place] at age 71 yrs. Father Family Medical History: Cancer Additional Family Medical History / Comment(s): . Mother Family Medical History: Cancer Additional Family Medical History / Comment(s): . Medications and Allergies Home Medications Medication Instructions Recorded Confirmed Type Multivitamin [Men's Multi-Vitamin] 1 tab PO DAILY 10/08/14 09/16/18 History Aspirin EC [Ecotrin Low Dose] 81 mg PO DAILY #0 tablet. 01/11/15 09/16/18 Rx Atorvastatin [Lipitor] 20 mg PO HS #30 tab 01/11/15 09/16/18 Rx Montelukast [Singulair] 10 mg PO HS #30 tab 01/11/15 09/16/18 Rx Potassium Chloride [K-Tab ER] 20 meq PO BID 11/12/15 09/16/18 History Albuterol Sulfate [Proair 1 puff INHALATION RT-BID 01/08/17 09/16/18 History Respiclick] Ipratropium-Albuterol Nebulize 3 ml INHALATION RT-QID PRN 01/08/17 09/16/18 History [Duoneb 0.5 mg-3 mg/3 ml Soln] Sennosides-Docusate Sodium 1 tab PO BID #60 tablet 01/14/17 09/16/18 Rx [Senokot-S] Ferrous Sulfate [Iron (65 MG 325 mg PO DAILY 09/07/18 09/16/18 History Elemental)] Umeclidinium Brm/Vilanterol Tr 1 puff INHALATION RT-DAILY 09/07/18 09/16/18 History [Anoro Ellipta 62.5-25 Mcg INH] metFORMIN HCL 1,000 mg PO AC-BRKFST 09/07/18 09/16/18 History metFORMIN HCL 1,500 mg PO AC-SUPPER 09/07/18 09/16/18 History sitaGLIPtin [Januvia] 100 mg PO DAILY 09/07/18 09/16/18 History Apixaban [Eliquis] 5 mg PO BID #60 tab 09/11/18 09/16/18 Rx Amiodarone [Cordarone] 200 mg PO BID #60 tab 09/12/18 09/16/18 Rx Furosemide [Lasix] 60 mg PO BID@0900,1600 #180 tab 09/12/18 09/16/18 Rx Hydrocortisone [Hydrocortisone 1 applic TOPICAL BID #28 gm 09/12/18 09/16/18 Rx 0.05%] Nystatin 100,000 Unit/gm Powd 1 applic TOPICAL BID #0 applic 09/12/18 09/16/18 Rx [Mycostatin Powder] Spironolactone [Aldactone] 25 mg PO BID #60 tab 09/12/18 09/16/18 Rx Verapamil Sr [Isoptin Sr] 240 mg PO BID #60 tablet.er 09/12/18 09/16/18 Rx predniSONE 40 mg PO DAILY #14 tab 09/12/18 09/16/18 Rx Amoxicillin/Potassium Clav 1 tab PO Q12HR 09/16/18 09/16/18 History [Augmentin 875-125 Tablet] Allergies Allergy/AdvReac Type Severity Reaction Status Date / Time acetaminophen [From [place]] AdvReac see Verified 09/16/18 10:25 comments hydrocodone [From [place]] AdvReac see Verified 09/16/18 10:25 comments warfarin [From Coumadin] AdvReac SEE Verified 09/16/18 10:25 COMMENTS Surgical - Exam Vital Signs Temp Pulse Resp BP Pulse Ox 97.8 F 130 H 19 119/79 95 09/16/18 10:05 09/16/18 10:05 09/16/18 10:05 09/16/18 10:05 09/16/18 10:05 Results - Labs 09/16/18 11:05 09/16/18 11:05 Abnormal Lab Results - Last 24 Hours (Table) 09/16/18 09/16/18 09/16/18 Range/Units 11:05 11:05 11:05 Hgb 10.6 L (13.0-17.5) gm/dL Hct 38.9 L (39.0-53.0) % MCV 68.8 L (80.0-100.0) fL MCH 18.8 L (25.0-35.0) pg MCHC 27.3 L (31.0-37.0) g/dL RDW 19.9 H (11.5-15.5) % Plt Count 472 H (150-450) k/uL Nucleated RBCs 1 H (0-0) /100 WBC PT (9.0-12.0) sec INR (<1.2) Sodium 133 L (137-145) mmol/L Potassium 5.4 H (3.5-5.1) mmol/L Chloride 96 L (98-107) mmol/L Carbon Dioxide 20 L (22-30) mmol/L BUN 36 H (9-20) mg/dL Creatinine 1.60 H (0.66-1.25) mg/dL Glucose 178 H (74-99) mg/dL Plasma Lactic Acid Roberto 4.0 H* (0.7-2.0) mmol/L AST 78 H (17-59) U/L Urine Protein (Negative) Hyaline Casts (0-2) /lpf Urine Mucus (None) /hpf 09/16/18 09/16/18 Range/Units 11:05 14:50 Hgb (13.0-17.5) gm/dL Hct (39.0-53.0) % MCV (80.0-100.0) fL MCH (25.0-35.0) pg MCHC (31.0-37.0) g/dL RDW (11.5-15.5) % Plt Count (150-450) k/uL Nucleated RBCs (0-0) /100 WBC PT 15.2 H (9.0-12.0) sec INR 1.5 H (<1.2) Sodium (137-145) mmol/L Potassium (3.5-5.1) mmol/L Chloride (98-107) mmol/L Carbon Dioxide (22-30) mmol/L BUN (9-20) mg/dL Creatinine (0.66-1.25) mg/dL Glucose (74-99) mg/dL Plasma Lactic Acid Roberto (0.7-2.0) mmol/L AST (17-59) U/L Urine Protein 1+ H (Negative) Hyaline Casts 10 H (0-2) /lpf Urine Mucus Occasional H (None) /hpf Diabetes panel 09/16/18 Range/Units 11:05 Sodium 133 L (137-145) mmol/L Potassium 5.4 H (3.5-5.1) mmol/L Chloride 96 L (98-107) mmol/L Carbon Dioxide 20 L (22-30) mmol/L BUN 36 H (9-20) mg/dL Creatinine 1.60 H (0.66-1.25) mg/dL Glucose 178 H (74-99) mg/dL Calcium 8.9 (8.4-10.2) mg/dL AST 78 H (17-59) U/L ALT 24 (21-72) U/L Alkaline Phosphatase 62 (38-126) U/L Total Protein 6.7 (6.3-8.2) g/dL Albumin 3.9 (3.5-5.0) g/dL Calcium panel 09/16/18 Range/Units 11:05 Calcium 8.9 (8.4-10.2) mg/dL Albumin 3.9 (3.5-5.0) g/dL Pituitary panel 09/16/18 Range/Units 11:05 Sodium 133 L (137-145) mmol/L Potassium 5.4 H (3.5-5.1) mmol/L Chloride 96 L (98-107) mmol/L Carbon Dioxide 20 L (22-30) mmol/L BUN 36 H (9-20) mg/dL Creatinine 1.60 H (0.66-1.25) mg/dL Glucose 178 H (74-99) mg/dL Calcium 8.9 (8.4-10.2) mg/dL Adrenal panel 09/16/18 Range/Units 11:05 Sodium 133 L (137-145) mmol/L Potassium 5.4 H (3.5-5.1) mmol/L Chloride 96 L (98-107) mmol/L Carbon Dioxide 20 L (22-30) mmol/L BUN 36 H (9-20) mg/dL Creatinine 1.60 H (0.66-1.25) mg/dL Glucose 178 H (74-99) mg/dL Calcium 8.9 (8.4-10.2) mg/dL Total Bilirubin 1.2 (0.2-1.3) mg/dL AST 78 H (17-59) U/L ALT 24 (21-72) U/L Alkaline Phosphatase 62 (38-126) U/L Total Protein 6.7 (6.3-8.2) g/dL Albumin 3.9 (3.5-5.0) g/dL
[2018-09-16] MEDS ORDERED: SODIUM CHLORIDE 0.9% 1,000 ML IV ONE ×2 (15:50→17:47)
[2018-09-16] MEDS ORDERED: ROCURONIUM BROMIDE 10 MG/ML 10 ML VIAL IV ONE (17:10)
[2018-09-16] MEDS ORDERED: MIDAZOLAM 2 MG/2 ML VIAL ONE (17:10)
[2018-09-16] MEDS ORDERED: PHENYLEPHRINE-0.9% NACL SYG 1 MG/10 ML SYRINGE ONE (17:10)
[2018-09-16] MEDS ORDERED: ALBUMIN HUMAN 5% (12.5gm) 250 ML BOTTLE IVPB ONE (17:10)
[2018-09-16] MEDS ORDERED: ETOMIDATE 2 MG/ML 10 ML VIAL ONE (17:10)
[2018-09-16] MEDS ORDERED: LACTATED RINGERS 1,000 ML IV ONE ×4 (17:47→19:30)
--- NOTE | 2018-09-16 19:57 | P.OP ---
Date of Procedure: 09/16/18 Preoperative Diagnosis: Perforated viscus Postoperative Diagnosis: Perforated gastric ulcer Ischemic colon at splenic flexure Bowel obstruction Procedure(s) Performed: Exploratory laparotomy Lysis of adhesions Decompression of colon and small bowel Transverse colectomy with takedown of splenic flexure Repair of gastric ulcer Anesthesia: TIM Surgeon: Duane De Leon Estimated Blood Loss (ml): 100 Pathology: other (Transverse colon) Condition: critical Disposition: ICU Operative Findings: Perforated gastric ulcer Ischemic transverse colon and splenic flexure Description of Procedure: The patient's placed on the operating table in the supine position. He received general anesthesia. His abdomen was prepped and draped usual sterile fashion. The abdomen was entered through a midline incision. The patient a previous scar. Approximately 15 minutes operative time used to lyse adhesions to the anterior abdominal wall. The small bowel and colon was massively dilated. An enterotomy is made in the small bowel to decompress the bowel. This was done in 3 positions. The enterotomy was closed using a TA stapler. Next the transverse colon was massively dilated. It measured approximately 15 cm diameter. Another colotomy was made and then the colon was decompressed and the colotomy was closed with the TA stapler. At this point a seen to be a significant amount of reaction in the left upper quadrant. The small bowel had multiple adhesions these were lysed with sharp dissection. The distal transverse colon and splenic flexure area appeared to be ischemic. At this point the distal transverse colon was transected with the MARY ANNE stapler and then using the Enseal device the mesentery the bowel was divided the splenic flexure was taken down using sharp and blunt dissection and the Enseal device. The descending colon was visua lized. A suitable portion on the descending colon which was not ischemic was transected with a GI stapler. The specimens of pathology. At this point a large amount of bilious fluid was seen and electrocautery. The stomach was rotated posteriorly and a gastric ulcer was seen along the greater curvature stomach in the distal posterior antrum. This was sutured closed with 3-0 GI silk and then a Bentley patch was placed over top of this repair. The abdomen was irrigated with 6 L of normal saline. A 18-Qat[place] CHAVEZ drains placed a left upper quadrant and brought out through separate stab incision in the fascia was closed with looped #1 PDS suture. The wound is left open and packed with wet-to-dry saline. The colostomy had been brought out in the left upper quadrant and was ensured with 3-0 Vicryl suture. Patient was sent to the ICU in critical condition.
[2018-09-16] MEDS: NOREPINEPHRINE 8 MG in SODIUM CHLORIDE 0.9% 250 ML IV SCH (20:00)
[2018-09-16 20:13] LABS: Glucose,Whole Blood 158 mg/dL (75-99)
[2018-09-16] MEDS: PANTOPRAZOLE 40 MG/10 ML VIAL IVP SCH (21:50)
[2018-09-16] MEDS: SODIUM CHLORIDE 0.9% 1,000 ML IV SCH ×2 (21:50→21:58)
[2018-09-16 22:37] LABS: Anisocytosis Slight; Calcium 8.1 mg/dL (8.4-10.2); HCT 36.4 % (39.0-53.0); HGB 9.4 gm/dL (13.0-17.5); Hypochromasia Marked; MCH 19.1 pg (25.0-35.0); MCHC 25.9 g/dL (31.0-37.0); Mean Platelet Volume 7.1; Microcytosis Moderate; Platelet Count 411 k/uL (150-450); Poikilocytosis Moderate; Potassium 5.8 mmol/L (3.5-5.1); RBC 4.93 m/uL (4.30-5.90); RDW 19.1 % (11.5-15.5)
[2018-09-16 22:40] LABS: MCV 73.9 fL (80.0-100.0)
[2018-09-16] MEDS: PROPOFOL 1,000 MG in EMPTY BAG 1 BAG IV SCH (22:40)
[2018-09-16 23:00] LABS: Band Neutrophils % 43 %; Large Platelets Present; Lymphocytes # (M) 0.58 k/uL (1.0-4.8); Metamyelocytes # (M) 0.24 k/uL (0); Metamyelocytes % 5 %; Monocytes # (M) 0.34 k/uL (0-1.0); Myelocytes % 2 %; Neutrophils % (M) 32 %; Nucleated Red Blood Cells 27 /100 WBC (0-0); Ovalocytes Present; Poikilocytosis (M) Present; Polychromasia Present; Total Cells Counted 200; Toxic Vacuolation Present; WBC 4.8 k/uL (3.8-10.6)
[2018-09-16 23:04] LABS: Target Cells Present
[2018-09-17 00:06] LABS: Glucose,Whole Blood 186 mg/dL (75-99)
[2018-09-17 00:30] LABS: Glucose,Whole Blood 150 mg/dL (75-99)
[2018-09-17] MEDS: PIPERACILLIN-TAZOBACTAM 3.375 GM in SODIUM CHLORIDE 0.9% 100 ML IVPB SCH ×4 (00:33→23:26)
[2018-09-17] MEDS: INSULIN ASPART (NovoLOG) 100 UNIT/ML VIAL SQ SCH ×5 (00:33→23:26)
[2018-09-17] MEDS: NOREPINEPHRINE 8 MG in SODIUM CHLORIDE 0.9% 250 ML IV SCH ×9 (01:10→23:47)
[2018-09-17] MEDS ORDERED: SODIUM CHLORIDE 0.9% 1,000 ML IV ONE (01:29)
[2018-09-17 03:09] LABS: Amorphous Sediment,Urine Rare /hpf; Appearance,Urine Turbid (Clear); Bacteria,Urine Moderate /hpf; Bilirubin,Urine Negative (Negative); Blood,Urine Moderate (Negative); Color,Urine Dark Yellow; Glucose,Urine (UA) Trace (Negative); Hyaline Casts,Urine 285 /lpf (0-2); Ketones,Urine Negative (Negative); Leukocyte Esterase,Urine Small (Negative); Mucus,Urine Few /hpf; Nitrite,Urine Negative (Negative); PH, Urine 5.5 (5.0-8.0); Protein,Urine 2+ (Negative); RBC,Urine 107 /hpf (0-5); Sperm,Urine Many /hpf; Squamous Epithelial Cell,Urine 36 /hpf (0-4); Urobilinogen,Urine <2.0 mg/dL (<2.0)
[2018-09-17] MEDS ORDERED: SODIUM CHLORIDE 0.9% 2,000 ML IV ONE ×2 (03:09→08:08)
[2018-09-17] MEDS: SODIUM CHLORIDE 0.9% 1,000 ML IV SCH ×4 (03:21→23:46)
[2018-09-17] MEDS: SODIUM CHLORIDE 0.9% 50 ML with VASOPRESSIN 20 UNIT IVPB SCH ×4 (05:22→14:21)
[2018-09-17 05:44] LABS: Glucose,Whole Blood 137 mg/dL (75-99)
[2018-09-17 05:45] LABS: Anisocytosis Slight; HCT 34.8 % (39.0-53.0); HGB 9.2 gm/dL (13.0-17.5); Hypochromasia Marked; MCH 18.7 pg (25.0-35.0); MCHC 26.3 g/dL (31.0-37.0); Mean Platelet Volume 6.4; Microcytosis Marked; Platelet Count 441 k/uL (150-450); Poikilocytosis Moderate; RBC 4.91 m/uL (4.30-5.90); RDW 19.5 % (11.5-15.5)
[2018-09-17] MEDS: PROPOFOL 1,000 MG in EMPTY BAG 1 BAG IV SCH ×6 (05:52→23:50)
[2018-09-17 06:01] LABS: Albumin 2.5 g/dL (3.5-5.0); Calcium 7.4 mg/dL (8.4-10.2); Total Bilirubin 0.8 mg/dL (0.2-1.3); Total Protein 4.7 g/dL (6.3-8.2)
[2018-09-17 06:10] LABS: Potassium 5.7 mmol/L (3.5-5.1)
--- NOTE | 2018-09-17 06:19 | P.ANPRN ---
Procedure Note - Anesthesia - Invasive Line Right Arterial Line Time Out Performed: Yes Date of Procedure: 09/17/18 Time of Procedure: 18:00 Location of Patient Procedure: OR Preparation: Sterile Prep, Sterile Dressing Arterial Line Location: Radial Ultrasound Used: Yes Needle Guage: 20 Gauge Narrative: Central line placement per sterile protocol utilized. Right Central Line Time Out Performed: Yes Date of Procedure: 09/17/18 Time of Procedure: 17:08 Location of Patient Procedure: OR Preparation: Sterile Prep, Sterile Dressing Ultrasound Used: Yes (Image saved of guidewire in internal jugular) Narrative: Central line placement per sterile protocol utilized.
[2018-09-17 07:00] LABS: Band Neutrophils % 34 %; Lymphocytes # (M) 1.14 k/uL (1.0-4.8); Metamyelocytes % 1 %; Monocytes # (M) 0.67 k/uL (0-1.0); Neutrophils % (M) 48 %; Nucleated Red Blood Cells 10 /100 WBC (0-0); Total Cells Counted 200; WBC 9.5 k/uL (3.8-10.6)
[2018-09-17 07:01] LABS: Large Platelets Present; Polychromasia Present
--- NOTE | 2018-09-17 07:53 | XR ---
EXAMINATION TYPE: XR chest 1V portable DATE OF EXAM: 09/17/2018 COMPARISON: Prior chest x-ray dated 09/07/2018 HISTORY: Intubated TECHNIQUE: Single frontal view of the chest is obtained. FINDINGS: Endotracheal tube is superimposed over the tracheal air column. There is an orogastric tub e in place coursing towards the left upper quadrant. Motion is present on the exam. Right jugular louisa tral venous catheter shows the distal tip coursing towards the right atrium. No evident pneumothorax. Lung volumes are low. The heart is enlarged. The left hemidiaphragm is obscured. Central vascularity may be increased. IMPRESSION: Expiratory rotated exam. There is motion present. There may be retrocardiac airspace dis ease or atelectasis, effusion. Cardiomegaly. Follow-up suggested.
--- NOTE | 2018-09-17 08:08 | P.CNPUL ---
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 The patient presented yesterday to the emergency department with extreme abdominal pain. The patient was apparently a constipated for a week and he was doing enemas at home. He ultimately felt a pop in the lower portion of his abdomen on the day of the presentation and he came in with severe abdominal pain. He was having emesis. CAT scan of the abdomen was done in the emergency department the patient was found to have no apparent 20. The patient had abdominal distention and his abdominal size was twice the normal. His blood pressure was in the low 90s. He was tachycardic with a heart rate in the 1:30. He was given IV fluids. He was given IV Zosyn. Blood cultures were sent. He was seen by general surgery and the patient was taken to the operating room, and the patient was found to have perforated gastric ulcer, ischemic colon at the site of the splenic flexure of bowel obstruction. The patient underwent expiratory laparotomy, lysis of adhesions, decompression of the colon and small bowel, transverse colectomy and takedown of the splenic flexure and repair of the gastric ulcer. Estimated blood loss is only 100 mL. The patient overnight was brought into the intensive care unit. The patient was resuscitated aggressively with IV fluids. He was given colloids and crystalloids. He is given 8 L of IV fluids. He was started on pressors and currently norepinephrine infusion is running at 62 g per minute. The patient was also started on physiologic dose vasopressin at 0.03 units per minute. Currently is on propofol at 14 mics for sedation. He is receiving normal saline at the rate of 150 mL an hour. Urine output is in order of 20-30 mL an hour. He is warm. His temperature was 100.5. He is on a mechanical ventilator. He is on assist-control mode of ventilation with a tidal volume of 550 at the rate of 26 with an FiO2 of 80% and a PEEP of 5. Blood gases from this morning shows a pH of 7.315 with a pCO2 of 40 and pO2 of 134. His echocardiogram from previous admissions showed an ejection fraction of 55-60%. He had a preserved LV function. No significant valvular abnormalities. Pulmonary to pressure estimated to be 44. His cardiac rhythm is currently sinus. The patient has a CHAVEZ drain in his abdomen and this is on the right side and output is around 80-90 mL of serous material. He also has a colostomy and the site is nonfunctioning it seems to be viable at this point. Note that the patient was in the hospital and he was discharged home on 09/12/2018 after being treated for a flutter/failure with rapid ventricular response and shortness of breath and acute diastolic heart failure. Upon discharge, the patient was started on amiodarone thousand milligrams twice a day, Eliquis, Aldactone, and he was given Augmentin on outpatient basis and a prednisone burst taper. He was discharged home on a 40 mg of prednisone. Review of Systems ROS unobtainable: due to endotracheal tube, due to mental status Past Medical History Past Medical History: Atrial Fibrillation, Asthma, Blood Disorder, Chest Pain / Angina, COPD, GERD/Reflux, Hyperlipidemia, Hypertension, Skin Disorder, Sleep Apnea/CPAP/BIPAP Additional Past Medical History / Comment(s): COPD, asthma, obesity, paroxysmal atrial fibrillation, psoriasis,hemoglobin [place] with polycythemia, pericardial effusion, hx hiatal hernia, hx bowel obstruction, uses oxygen 2L at , 09/07/2018-cellulitis of the anterior abdominal wall History of Any Multi-Drug Resistant Organisms: None Reported Past Surgical History: Appendectomy, Hernia Repair Additional Past Surgical History / Comment(s): Laparoscopic lucia fundloplasty and mesh repair of hiatal hernia. arthroscopy left knee Past Anesthesia/Blood Transfusion Reactions: Motion Sickness Additional Past Anesthesia/Blood Transfusion Reaction / Comment(s): . Past Psychological History: No Psychological Hx Reported Smoking Status: Former smoker Past Alcohol Use History: None Reported Past Drug Use History: None Reported - Past Family History Sister(s) Family Medical History: Deep Vein Thrombosis (DVT) Brother(s) Family Medical History: Myocardial Infarction (CT) Additional Family Medical History / Comment(s): Brother had a CT at age 71 yrs. Father Family Medical History: Cancer Additional Family Medical History / Comment(s): . Mother Family Medical History: Cancer Additional Family Medical History / Comment(s): . Medications and Allergies Home Medications Medication Instructions Recorded Confirmed Type Multivitamin [Men's Multi-Vitamin] 1 tab PO DAILY 10/08/14 09/16/18 History Aspirin EC [Ecotrin Low Dose] 81 mg PO DAILY #0 tablet. 01/11/15 09/16/18 Rx Atorvastatin [Lipitor] 20 mg PO HS #30 tab 01/11/15 09/16/18 Rx Montelukast [Singulair] 10 mg PO HS #30 tab 01/11/15 09/16/18 Rx Potassium Chloride [K-Tab ER] 20 meq PO BID 11/12/15 09/16/18 History Albuterol Sulfate [Proair 1 puff INHALATION RT-BID 01/08/17 09/16/18 History Respiclick] Ipratropium-Albuterol Nebulize 3 ml INHALATION RT-QID PRN 01/08/17 09/16/18 Hi story [Duoneb 0.5 mg-3 mg/3 ml Soln] Sennosides-Docusate Sodium 1 tab PO BID #60 tablet 01/14/17 09/16/18 Rx [Senokot-S] Ferrous Sulfate [Iron (65 MG 325 mg PO DAILY 09/07/18 09/16/18 History Elemental)] Umeclidinium Brm/Vilanterol Tr 1 puff INHALATION RT-DAILY 09/07/18 09/16/18 History [Anoro Ellipta 62.5-25 Mcg INH] metFORMIN HCL 1,000 mg PO AC-BRKFST 09/07/18 09/16/18 History metFORMIN HCL 1,500 mg PO AC-SUPPER 09/07/18 09/16/18 History sitaGLIPtin [Januvia] 100 mg PO DAILY 09/07/18 09/16/18 History Apixaban [Eliquis] 5 mg PO BID #60 tab 09/11/18 09/16/18 Rx Amiodarone [Cordarone] 200 mg PO BID #60 tab 09/12/18 09/16/18 Rx Furosemide [Lasix] 60 mg PO BID@0900,1600 #180 tab 09/12/18 09/16/18 Rx Hydrocortisone [Hydrocortisone 1 applic TOPICAL BID #28 gm 09/12/18 09/16/18 Rx 0.05%] Nystatin 100,000 Unit/gm Powd 1 applic TOPICAL BID #0 applic 09/12/18 09/16/18 Rx [Mycostatin Powder] Spironolactone [Aldactone] 25 mg PO BID #60 tab 09/12/18 09/16/18 Rx Verapamil Sr [Isoptin Sr] 240 mg PO BID #60 tablet.er 09/12/18 09/16/18 Rx predniSONE 40 mg PO DAILY #14 tab 09/12/18 09/16/18 Rx Amoxicillin/Potassium Clav 1 tab PO Q12HR 09/16/18 09/16/18 History [Augmentin 875-125 Tablet] Allergies Allergy/AdvReac Type Severity Reaction Status Date / Time acetaminophen [From [place]] AdvReac see Verified 09/16/18 10:25 comments hydrocodone [From [place]] AdvReac see Verified 09/16/18 10:25 comments warfarin [From Coumadin] AdvReac SEE Verified 09/16/18 10:25 COMMENTS Physical Exam Vitals: Vital Signs Temp Pulse Pulse Resp BP BP Pulse Ox 09/17/18 06:00 125 H 26 H 98 09/17/18 05:30 126 H 26 H 98 09/17/18 05:00 126 H 26 H 119/71 98 09/17/18 04:30 128 H 26 H 119/71 98 09/17/18 04:00 99.9 F H 126 H 26 H 108/68 98 09/17/18 03:30 125 H 26 H 99 09/17/18 03:00 126 H 26 H 107/69 99 09/17/18 02:30 100.5 F H 126 H 26 H 115/73 98 09/17/18 02:00 125 H 26 H 117/71 98 09/17/18 01:30 124 H 26 H 122/69 98 09/17/18 01:00 124 H 26 H 98 09/17/18 00:30 126 H 26 H 99 09/17/18 00:00 124 H 26 H 99 09/16/18 23:38 120 H 26 H 99 09/16/18 23:30 123 H 26 H 99 09/16/18 23:00 122 H 26 H 98 09/16/18 22:30 98.5 F 118 H 26 H 100 09/16/18 22:00 113 H 20 100 07/23/19 21:30 113 H 20 100 09/16/18 21:00 114 H 20 139/82 99 09/16/18 20:30 97.7 F 108 H 20 09/16/18 20:15 94.3 F L 106 H 20 100 09/16/18 16:19 96 24 102/63 95 09/16/18 15:52 91 24 105/64 95 09/16/18 15:28 98.1 F 102 H 32 H 98/69 95 09/16/18 15:20 97.6 F 91 20 111/55 95 09/16/18 15:00 96 31 H 101/65 93 L 09/16/18 14:50 95 35 H 101/65 94 L 09/16/18 14:40 89 20 98/70 94 L 09/16/18 14:30 96 27 H 98/70 09/16/18 14:20 105 H 26 H 97/70 09/16/18 14:10 88 33 H 97/70 09/16/18 14:00 110 H 22 09/16/18 13:50 96 31 H 94 L 09/16/18 13:40 98 31 H 104/63 94 L 09/16/18 13:30 110 H 25 H 104/63 94 L 09/16/18 13:20 110 H 31 H 117/71 93 L 09/16/18 13:10 123 H 25 H 117/71 94 L 09/16/18 13:00 128 H 35 H 115/69 94 L 09/16/18 12:50 105 H 30 H 115/69 94 L 09/16/18 12:40 115 H 35 H 114/78 98 09/16/18 12:30 114/78 09/16/18 12:20 112 H 31 H 111/78 95 09/16/18 12:10 115 H 28 H 111/78 95 09/16/18 12:00 111 H 23 110/63 94 L 09/16/18 11:50 130 H 26 H 110/63 95 09/16/18 11:40 130 H 31 H 110/72 94 L 09/16/18 11:30 112 H 33 H 110/72 94 L 09/16/18 11:20 130 H 35 H 106/71 97 09/16/18 11:11 97.9 F 124 H 32 H 106/71 95 09/16/18 11:10 113 H 38 H 95 09/16/18 11:00 125 H 35 H 130/75 95 09/16/18 10:50 122 H 34 H 130/75 09/16/18 10:40 120 H 39 H 112/79 96 09/16/18 10:30 126 H 36 H 112/79 95 09/16/18 10:20 130 H 37 H 119/79 96 09/16/18 10:10 130 H 34 H 119/79 96 09/16/18 10:06 95 09/16/18 10:05 97.8 F 130 H 19 119/79 95 Intake and Output 09/16/18 09/17/18 09/17/18 22:59 06:59 14:59 Intake Total 5693.871 5036.669 Output Total 250 280 Balance 5443.871 4756.669 Intake: IV 5569.5 4324 Piperacillin-Tazobactam 3 100 .375 gm In Sodium Chloride 0.9% 100 ml @ 25 mls/hr IVPB Q8HR [facility] Rx# :[id number] Pressure Bag 24 Sodium Chloride 0.9% 1, 1200 000 ml @ 150 mls/hr IV . Q6H40M [facility] Rx#:[id number] Sodium Chloride 0.9% 1, 1000 000 ml @ 999 mls/hr IV . Q1H1M STA Rx#:[id number] Sodium Chloride 0.9% 1, 2000 000 ml @ 999 mls/hr IV . Q1H1M STA Rx#:[id number] Intake, IV Titration 124.371 712.669 Amount Norepinephrine 8 mg In 124.371 621.163 Sodium Chloride 0.9% 250 ml @ 0.05 MCG/KG/MIN 14. 35 mls/hr IV .[id number] [facility] Rx#:[id number] Propofol 1,000 mg In 91.506 Empty Bag 1 bag @ Titrate IV .Q0M [facility] Rx#: [id number] Output: Gastric Drainage 100 Drainage 80 Abdomen 80 Urine 50 200 Estimated Blood Loss 100 Other: Voiding Method Indwelling Catheter Indwelling Catheter Weight 151.8 kg 154.6 kg ABP, PAP, CO, CI - Last 8 Hours Arterial Blood Pressure 86/49 Arterial Blood Pressure 71/49 Arterial Blood Pressure 88/54 Arterial Blood Pressure 86/54 Arterial Blood Pressure 94/57 Arterial Blood Pressure 99/58 Arterial Blood Pressure 70/48 Arterial Blood Pressure 91/55 Arterial Blood Pressure 85/54 Arterial Blood Pressure 80/48 Arterial Blood Pressure 83/49 Arterial Blood Pressure 88/51 Arterial Blood Pressure 89/50 Gen. appearance the patient is obese, comfortable likely distress intubated on a mechanical ventilator orogastric and orotracheal tube are both in place Head exam was generally normal. There was no scleral icterus or corneal arcus. Mucous membranes were moist. Neck was supple and without jugular venous distension, thyromegaly, or carotid bruits. Carotids were easily palpable bilaterally. There was no adenopathy. Lungs sounds are diminished bilaterally along with scattered rhonchi and scattered expiratory wheezes on the lung lopez bilaterally. Heart sounds are tachycardic, positive S1-S2, regular, no cervical murmurs appreciated Abdomen is distended soft. There is minimal direct tenderness. There is a colostomy in the left upper quadrant area. The colostomy site seems to be viable with healthy tissue and that is no output in the colostomy bag. There is a large mid abdominal incision which is dry clean and intact. Bowel sounds are absent. There is no abdominal distention. There is also a CHAVEZ drain with serous material collecting in the container. Extremities show diminished pulses bilaterally especially lower extremities. No cyanosis. No clubbing. Examination of the skin revealed no evidence of significant rashes, suspicious appearing nevi or other concerning lesions. Neurologically sedated and the patient grimaces to painful stimulation in all 4 extremities Results - Laboratory Findings CBC and BMP: 09/17/18 05:10 09/17/18 05:10 PT/INR, D-dimer PT 15.2 sec (9.0-12.0) H 09/16/18 11:05 INR 1.5 (<1.2) H 09/16/18 11:05 Abnormal lab findings: Abnormal Labs 09/16/18 09/16/18 09/16/18 11:05 11:05 11:05 Hgb 10.6 L Hct 38.9 L MCV 68.8 L MCH 18.8 L MCHC 27.3 L RDW 19.9 H Plt Count 472 H Lymphocytes # (Manual) Metamyelocytes # (Man) Myelocytes # (Manual) Nucleated RBCs 1 H PT INR ABG Lactic Acid Sodium 133 L Potassium 5.4 H Chloride 96 L Carbon Dioxide 20 L BUN 36 H Creatinine 1.60 H Glucose 178 H POC Glucose (mg/dL) Plasma Lactic Acid Roberto 4.0 H* Calcium AST 78 H Total Protein Albumin Urine Protein Urine Glucose (UA) Urine Blood Ur Leukocyte Esterase Urine RBC Urine WBC Ur Squamous Epith Cells Amorphous Sediment Urine Bacteria Hyaline Casts Urine Mucus Urine Sperm 09/16/18 09/16/18 09/16/18 11:05 14:50 15:22 Hgb Hct MCV MCH MCHC RDW Plt Count Lymphocytes # (Manual) Metamyelocytes # (Man) Myelocytes # (Manual) Nucleated RBCs PT 15.2 H INR 1.5 H ABG Lactic Acid Sodium Potassium Chloride Carbon Dioxide BUN Creatinine Glucose POC Glucose (mg/dL) 159 H Plasma Lactic Acid Roberto Calcium AST Total Protein Albumin Urine Protein 1+ H Urine Glucose (UA) Urine Blood Ur Leukocyte Esterase Urine RBC Urine WBC Ur Squamous Epith Cells Amorphous Sediment Urine Bacteria Hyaline Casts 10 H Urine Mucus Occasional H Urine Sperm 09/16/18 09/16/18 09/16/18 20:12 20:36 22:10 Hgb Hct MCV MCH MCHC RDW Plt Count Lymphocytes # (Manual) Metamyelocytes # (Man) Myelocytes # (Manual) Nucleated RBCs PT INR ABG Lactic Acid 2.0 H Sodium Potassium Chloride Carbon Dioxide BUN Creatinine Glucose POC Glucose (mg/dL) 158 H Plasma Lactic Acid Roberto 2.8 H* Calcium AST Total Protein Albumin Urine Protein Urine Glucose (UA) Urine Blood Ur Leukocyte Esterase Urine RBC Urine WBC Ur Squamous Epith Cells Amorphous Sediment Urine Bacteria Hyaline Casts Urine Mucus Urine Sperm 09/16/18 09/16/18 09/17/18 22:10 22:10 00:04 Hgb 9.4 L Hct 36.4 L MCV 73.9 L D MCH 19.1 L MCHC 25.9 L RDW 19.1 H Plt Count Lymphocytes # (Manual) 0.58 L Metamyelocytes # (Man) 0.24 H Myelocytes # (Manual) 0.10 H Nucleated RBCs 27 H PT INR ABG Lactic Acid Sodium 133 L Potassium 5.8 H Chloride Carbon Dioxide 19 L BUN 40 H Creatinine 1.85 H Glucose 158 H POC Glucose (mg/dL) 186 H Plasma Lactic Acid Roberto Calcium 8.1 L AST Total Protein Albumin Urine Protein Urine Glucose (UA) Urine Blood Ur Leukocyte Esterase Urine RBC Urine WBC Ur Squamous Epith Cells Amorphous Sediment Urine Bacteria Hyaline Casts Urine Mucus Urine Sperm 09/17/18 09/17/18 09/17/18 00:29 01:45 05:10 Hgb 9.2 L Hct 34.8 L MCV 71.0 L MCH 18.7 L MCHC 26.3 L RDW 19.5 H Plt Count Lymphocytes # (Manual) Metamyelocytes # (Man) 0.10 H Myelocytes # (Manual) Nucleated RBCs 10 H PT INR ABG Lactic Acid Sodium Potassium Chloride Carbon Dioxide BUN Creatinine Glucose POC Glucose (mg/dL) 150 H Plasma Lactic Acid Roberto Calcium AST Total Protein Albumin Urine Protein 2+ H Urine Glucose (UA) Trace H Urine Blood Moderate H Ur Leukocyte Esterase Small H Urine RBC 107 H Urine WBC 67 H Ur Squamous Epith Cells 36 H Amorphous Sediment Rare H Urine Bacteria Moderate H Hyaline Casts 285 H Urine Mucus Few H Urine Sperm Many H 09/17/18 09/17/18 05:10 05:42 Hgb Hct MCV MCH MCHC RDW Plt Count Lymphocytes # (Manual) Metamyelocytes # (Man) Myelocytes # (Manual) Nucleated RBCs PT INR ABG Lactic Acid Sodium 133 L Potassium 5.7 H Chloride Carbon Dioxide 19 L BUN 40 H Creatinine 2.12 H Glucose 129 H POC Glucose (mg/dL) 137 H Plasma Lactic Acid Roberto Calcium 7.4 L AST Total Protein 4.7 L Albumin 2.5 L Urine Protein Urine Glucose (UA) Urine Blood Ur Leukocyte Esterase Urine RBC Urine WBC Ur Squamous Epith Cells Amorphous Sediment Urine Bacteria Hyaline Casts Urine Mucus Urine Sperm - Diagnostic Findings Chest x-ray: image reviewed Assessment and Plan Plan: 1 perforated gastric ulcer/ischemic colon at the level of splenic fracture with bowel obstruction. The patient is post expiratory laparotomy, lysis of adhesions, repair of a gastric ulcer, transfers colectomy with takedown of splenic flexure and decompression of the colon and small bowel. The patient is postop day #1. 2 shock with profound hypotension, and the patient has been aggressively resuscitated IV fluids and pressors. Currently the patient is on a combination of IV fluids, pressors with a combination of norepinephrine and vasopressin and antibiotics. Remains quite hypotensive with high-dose pressors. Consider septic shock secondary to bowel perforation and gastric perforation. 3 acute hypoxic respiratory failure secondary to above, currently intubated on a mechanical ventilator 4 acute kidney injury secondary to above 5 mild lactic acidosis lactic acid level is down to 2.8 6 history of proximal atrial fibrillation with a recent admission to the hospital because of A. fib/flutter with RVR current rhythm is sinus. The patient was taken off anticoagulation and the patient was given Kcentra be operatively 7 COPD 8 bronchial asthma 9 CHF with diastolic heart failure 10 obstructive sleep apnea noncompliant with CPAP therapy 11 recent hospitalization for select of the abdominal wall, was receiving Augmentin an outpatient basis 12 diabetes mellitus type 2 13 chronic hypoxic respiratory failure with an oxygen at 2 L per minute nasal cannula on outpatient basis 14 noncompliance with medication and medical treatment in general Plan We'll give the patient additional 2 L of IV fluids. We'll try to wean off the pressors if possible. He is on examination of norepinephrine infusion and vasopressin. Continue IV Zosyn. At Flagyl. Add Diflucan. Add hydrocortisone under the patient was being treated with steroids on outpatient basis and this will be a stress dose hydrocortisone 100 mg every 6 hours. Continue vent support. FiO2 down to 60% and then down to 50%. The necessity ventilator changes were done. Keep the patient nothing by mouth for now. No one to coag ulation for now. Subcu heparin for DVT prophylaxis. IV Protonix. Echocardiogram was done recently and the patient has a preserved LV function. A triple lumen catheter has been inserted. Artery and has been inserted. Condition is critical. We'll continue to follow make further recommendations based on his progress.
[2018-09-17] MEDS: HEPARIN SODIUM,PORCINE 5,000 UNIT/ML 1 ML VIAL SQ SCH ×3 (08:22→23:05)
[2018-09-17] MEDS: CHLORHEXIDINE GLUCONATE 15 ML CUP MUCOUS MEM SCH ×2 (08:22→20:09)
[2018-09-17] MEDS: PANTOPRAZOLE 40 MG/10 ML VIAL IVP SCH (08:22)
[2018-09-17] MEDS: FLUCONAZOLE IN NACL,ISO-OSM 200 MG in SALINE 1 100ML.BAG IVPB SCH (08:38)
[2018-09-17] MEDS: HYDROCORTISONE SUCCINATE 100 MG/2 ML VIAL IV SCH ×3 (08:49→23:26)
[2018-09-17 10:27] LABS: Glucose,Whole Blood 130 mg/dL (75-99)
[2018-09-17] MEDS: IPRATROPIUM-ALBUTEROL 3 ML NEB INHALATION SCH ×4 (11:09→19:05)
[2018-09-17] MEDS: metroNIDAZOLE-NS PMX 500 MG in SALINE 1 100ML.BAG IVPB SCH ×3 (11:34→23:26)
[2018-09-17 12:12] LABS: Glucose,Whole Blood 149 mg/dL (75-99)
--- NOTE | 2018-09-17 13:57 | P.CONS ---
History of Present Illness - Reason for Consult Consult date: 09/17/18 Medical management - History of Present Illness This is a 72-year-old male patient of Dr. Cevallos with past history of chronic hypoxic respiratory failure on home O2 obstructive sleep apnea on CPAP, paroxysmal atrial fibrillation, chronic diastolic heart failure, severe COPD, morbid obesity with BMI of 47, hypertension hypertensive cardiovascular disease, mild intermittent asthma, hyperlipidemia, gastroesophageal reflux disease, diabetes mellitus type 2, cellulitis of the abdominal wall. Patient was recently hospitalized and discharged home on September 12 and treated for acute diastolic heart failure, atrial flutter/atrial fibrillation with rapid ventricular response status post MIKE which found a small atrial appendage thrombus. The patient was stabilized and discharged home in stable condition and had been started on amiodarone, eliquis, Aldactone, prednisone and Augmentin. Patient presented to [facility] emergency center for evaluation. He was afebrile, heart rate 130s, blood pressure 119/79, pulse ox 95%. White count was 5.9, hemoglobin 10.6, platelet count 4-72. Sodium 133, potassium 5.4, chloride 96, CO2 20, BUN 36 and creatinine 1.6, blood sugar 178. CAT scan of the abdomen and pelvis revealed pneumoperitoneum. Bowel distention. Bowel ischemia not excluded. No clear obstruction. Findings may be due to ileus. Patient was provided IV fluids, pain medication and Zosyn patient was seen by Dr. De Leon in the emergency center and taken to the OR found to have a perforated gastric ulcer, ischemic colon at the site of splenic flexure of the bowel obstruction. Patient underwent exploratory laparotomy, lysis of adhesions, decompression of the colon and small bowel, transverse colectomy and takedown of splenic flexure and repair of a gastric ulcer. Patient was then transferred to the intensive care unit and followed by Dr. Red. He is status post greater than 8 L of IV fluid and on norepinephrine and subsequent started on vasopressin. Urine output has been marginal patient remains intubated and on mechanical ventilation with tidal volume 550, FiO2 of 50% and PEEP of 5. The patient is on sedation. Review of Systems ROS unobtainable: due to endotracheal tube Past Medical History Past Medical History: Atrial Fibrillation, Asthma, Blood Disorder, Chest Pain / Angina, COPD, GERD/Reflux, Hyperlipidemia, Hypertension, Skin Disorder, Sleep Apnea/CPAP/BIPAP Additional Past Medical History / Comment(s): COPD, asthma, obesity, paroxysmal atrial fibrillation, psoriasis,hemoglobin [place] with polycythemia, pericardial effusion, hx hiatal hernia, hx bowel obstruction, uses oxygen 2L at HS, 09/07/2018-cellulitis of the anterior abdominal wall History of Any Multi-Drug Resistant Organisms: None Reported Past Surgical History: Appendectomy, Hernia Repair Additional Past Surgical History / Comment(s): Laparoscopic lucia fundloplasty and mesh repair of hiatal hernia. arthroscopy left knee Past Anesthesia/Blood Transfusion Reactions: Motion Sickness Additional Past Anesthesia/Blood Transfusion Reaction / Comm: . Past Psychological History: No Psychological Hx Reported Smoking Status: Former smoker Past Alcohol Use History: None Reported Past Drug Use History: None Reported - Past Family History Sister(s) Family Medical History: Deep Vein Thrombosis (DVT) Brother(s) Family Medical History: Myocardial Infarction ([place]) Additional Family Medical History / Comment(s): Brother had a [place] at age 71 yrs. Father Family Medical History: Cancer Additional Family Medical History / Comment(s): . Mother Family Medical History: Cancer Additional Family Medical History / Comment(s): . Medications and Allergies Home Medications Medication Instructions Recorded Confirmed Type Multivitamin [Men's Multi-Vitamin] 1 tab PO DAILY 10/08/14 09/16/18 History Aspirin EC [Ecotrin Low Dose] 81 mg PO DAILY #0 tablet. 01/11/15 09/16/18 Rx Atorvastatin [Lipitor] 20 mg PO HS #30 tab 01/11/15 09/16/18 Rx Montelukast [Singulair] 10 mg PO HS #30 tab 01/11/15 09/16/18 Rx Potassium Chloride [K-Tab ER] 20 meq PO BID 11/12/15 09/16/18 History Albuterol Sulfate [Proair 1 puff INHALATION RT-BID 01/08/17 09/16/18 History Respiclick] Ipratropium-Albuterol Nebulize 3 ml INHALATION RT-QID PRN 01/08/17 09/16/18 History [Duoneb 0.5 mg-3 mg/3 ml Soln] Sennosides-Docusate Sodium 1 tab PO BID #60 tablet 01/14/17 09/16/18 Rx [Senokot-S] Ferrous Sulfate [Iron (65 MG 325 mg PO DAILY 09/07/18 09/16/18 History Elemental)] Umeclidinium Brm/Vilanterol Tr 1 puff INHALATION RT-DAILY 09/07/18 09/16/18 History [Anoro Ellipta 62.5-25 Mcg INH] metFORMIN HCL 1,000 mg PO AC-BRKFST 09/07/18 09/16/18 History metFORMIN HCL 1,500 mg PO AC-SUPPER 09/07/18 09/16/18 History sitaGLIPtin [Januvia] 100 mg PO DAILY 09/07/18 09/16/18 History Apixaban [Eliquis] 5 mg PO BID #60 tab 09/11/18 09/16/18 Rx Amiodarone [Cordarone] 200 mg PO BID #60 tab 09/12/18 09/16/18 Rx Furosemide [Lasix] 60 mg PO BID@0900,1600 #180 tab 09/12/18 09/16/18 Rx Hydrocortisone [Hydrocortisone 1 applic TOPICAL BID #28 gm 09/12/18 09/16/18 Rx 0.05%] Nystatin 100,000 Unit/gm Powd 1 applic TOPICAL BID #0 applic 09/12/18 09/16/18 Rx [Mycostatin Powder] Spironolactone [Aldactone] 25 mg PO BID #60 tab 09/12/18 09/16/18 Rx Verapamil Sr [Isoptin Sr] 240 mg PO BID #60 tablet.er 09/12/18 09/16/18 Rx predniSONE 40 mg PO DAILY #14 tab 09/12/18 09/16/18 Rx Amoxicillin/Potassium Clav 1 tab PO Q12HR 09/16/18 09/16/18 History [Augmentin 875-125 Tablet] Allergies Allergy/AdvReac Type Severity Reaction Status Date / Time acetaminophen [From [place]] AdvReac see Verified 09/16/18 10:25 comments hydrocodone [From [place]] AdvReac see Verified 09/16/18 10:25 comments warfarin [From Coumadin] AdvReac SEE Verified 09/16/18 10:25 COMMENTS Physical Exam Vitals: Vital Signs Temp Pulse Pulse Resp BP BP Pulse Ox 09/17/18 09:30 126 H 26 H 117/75 97 09/17/18 09:00 126 H 26 H 127/76 97 09/17/18 08:30 126 H 26 H 127/76 98 09/17/18 08:00 100.4 F H 126 H 25 H 132/78 98 09/17/18 07:30 126 H 26 H 132/78 98 09/17/18 07:00 126 H 21 98 09/17/18 06:30 125 H 26 H 126/68 98 09/17/18 06:00 125 H 26 H 98 09/17/18 05:30 126 H 26 H 98 09/17/18 05:00 126 H 26 H 119/71 98 09/17/18 04:30 128 H 26 H 119/71 98 09/17/18 04:00 99.9 F H 126 H 26 H 108/68 98 09/17/18 03:30 125 H 26 H 99 09/17/18 03:00 126 H 26 H 107/69 99 09/17/18 02:30 100.5 F H 126 H 26 H 115/73 98 09/17/18 02:00 125 H 26 H 117/71 98 09/17/18 01:30 124 H 26 H 122/69 98 09/17/18 01:00 124 H 26 H 98 09/17/18 00:30 126 H 26 H 99 09/17/18 00:00 124 H 26 H 99 09/16/18 23:38 120 H 26 H 99 09/16/18 23:30 123 H 26 H 99 09/16/18 23:00 122 H 26 H 98 09/16/18 22:30 98.5 F 118 H 26 H 100 09/16/18 22:00 113 H 20 100 09/16/18 21:30 113 H 20 100 09/16/18 21:00 114 H 20 139/82 99 09/16/18 20:30 97.7 F 108 H 20 09/16/18 20:15 94.3 F L 106 H 20 100 09/16/18 16:19 96 24 102/63 95 09/16/18 15:52 91 24 105/64 95 09/16/18 15:28 98.1 F 102 H 32 H 98/69 95 09/16/18 15:20 97.6 F 91 20 111/55 95 09/16/18 15:00 96 31 H 101/65 93 L 09/16/18 14:50 95 35 H 101/65 94 L 07/23/19 14:40 89 20 98/70 94 L 09/16/18 14:30 96 27 H 98/70 09/16/18 14:20 105 H 26 H 97/70 09/16/18 14:10 88 33 H 97/70 09/16/18 14:00 110 H 22 09/16/18 13:50 96 31 H 94 L 09/16/18 13:40 98 31 H 104/63 94 L 09/16/18 13:30 110 H 25 H 104/63 94 L 09/16/18 13:20 110 H 31 H 117/71 93 L 09/16/18 13:10 123 H 25 H 117/71 94 L 09/16/18 13:00 128 H 35 H 115/69 94 L 09/16/18 12:50 105 H 30 H 115/69 94 L 09/16/18 12:40 115 H 35 H 114/78 98 09/16/18 12:30 114/78 09/16/18 12:20 112 H 31 H 111/78 95 09/16/18 12:10 115 H 28 H 111/78 95 09/16/18 12:00 111 H 23 110/63 94 L 09/16/18 11:50 130 H 26 H 110/63 95 09/16/18 11:40 130 H 31 H 110/72 94 L 09/16/18 11:30 112 H 33 H 110/72 94 L 09/16/18 11:20 130 H 35 H 106/71 97 09/16/18 11:11 97.9 F 124 H 32 H 106/71 95 09/16/18 11:10 113 H 38 H 95 09/16/18 11:00 125 H 35 H 130/75 95 09/16/18 10:50 122 H 34 H 130/75 09/16/18 10:40 120 H 39 H 112/79 96 09/16/18 10:30 126 H 36 H 112/79 95 09/16/18 10:20 130 H 37 H 119/79 96 09/16/18 10:10 130 H 34 H 119/79 96 09/16/18 10:06 95 09/16/18 10:05 97.8 F 130 H 19 119/79 95 Intake and Output 09/16/18 09/17/18 09/17/18 22:59 06:59 14:59 Intake Total 5693.871 5036.669 527.637 Output Total 250 280 125 Balance 5443.871 4756.669 402.637 Intake: IV 5569.5 4324 306 Piperacillin-Tazobactam 3 100 .375 gm In Sodium Chloride 0.9% 100 ml @ 25 mls/hr IVPB Q8HR [facility] Rx# :[id number] Pressure Bag 24 6 Sodium Chloride 0.9% 1, 1200 300 000 ml @ 150 mls/hr IV . Q6H40M [facility] Rx#:[id number] Sodium Chloride 0.9% 1, 1000 000 ml @ 999 mls/hr IV . Q1H1M STA Rx#:[id number] Sodium Chloride 0.9% 1, 2000 000 ml @ 999 mls/hr IV . Q1H1M STA Rx#:[id number] Intake, IV Titration 124.371 712.669 221.637 Amount Norepinephrine 8 mg In 124.371 621.163 176.585 Sodium Chloride 0.9% 250 ml @ 0.05 MCG/KG/MIN 14. 35 mls/hr IV .[id number] [facility] Rx#:[id number] Propofol 1,000 mg In 91.506 45.052 Empty Bag 1 bag @ Titrate IV .Q0M [facility] Rx#: [id number] Output: Gastric Drainage 100 Drainage 80 Abdomen 80 Urine 50 200 125 Estimated Blood Loss 100 Other: Voiding Method Indwelling Catheter Indwelling Catheter Weight 151.8 kg 154.6 kg ABP, PAP, CO, CI - Last 8 Hours Arterial Blood Pressure 109/63 Arterial Blood Pressure 92/60 Arterial Blood Pressure 101/58 Arterial Blood Pressure 95/58 Arterial Blood Pressure 78/61 Arterial Blood Pressure 67/53 Arterial Blood Pressure 91/51 Arterial Blood Pressure 86/49 Arterial Blood Pressure 71/49 Arterial Blood Pressure 88/54 Arterial Blood Pressure 86/54 Arterial Blood Pressure 94/57 Arterial Blood Pressure 99/58 Arterial Blood Pressure 70/48 Arterial Blood Pressure 91/55 Arterial Blood Pressure 85/54 Gen: This is a 72-year-old morbidly obese male. He is in the intensive care unit. Patient is intubated and on mechanical ventilation. HEENT: Head is atraumatic, normocephalic. Pupils equal, round. Sclerae is anicteric. Oral gastric and oral tracheal tube in place. Mucous membranes of the mouth are moist. NECK: Supple. No JVD. No lymphadenopathy. No thyromegaly. LUNGS: Diminished bilaterally with scattered rhonchi and expiratory wheeze. HEART: Irregular rate and rhythm. Systolic murmur. nurse monitoring atrial fibrillation with RVR. ABDOMEN: Soft. Large distended. No active bowel sounds are present. Colostomy in the left upper quadrant with what appears to be dried blood at the stoma. No output in colostomy bag. There is a large mid abdominal incision with dressing that is dry and intact. No breakthrough bleeding or drainage. CHAVEZ drain with serous material. Foster catheter draining clear urine. EXTREMITIES: No pedal edema. No calf tenderness. NEUROLOGICAL: Patient is sedated. Results Results: Laboratory Results WBC 9.5 k/uL (3.8-10.6) 09/17/18 05:10 RBC 4.91 m/uL (4.30-5.90) 09/17/18 05:10 Hgb 9.2 gm/dL (13.0-17.5) L 09/17/18 05:10 Hct 34.8 % (39.0-53.0) L 09/17/18 05:10 MCV 71.0 fL (80.0-100.0) L 09/17/18 05:10 MCH 18.7 pg (25.0-35.0) L 09/17/18 05:10 MCHC 26.3 g/dL (31.0-37.0) L 09/17/18 05:10 RDW 19.5 % (11.5-15.5) H 09/17/18 05:10 Plt Count 441 k/uL (150-450) 09/17/18 05:10 Neutrophils % (Manual) 48 % 09/17/18 05:10 Band Neutrophils % 34 % 09/17/18 05:10 Lymphocytes % (Manual) 12 % 09/17/18 05:10 Monocytes % (Manual) 7 % 09/17/18 05:10 Metamyelocytes % 1 % 09/17/18 05:10 Myelocytes % 2 % 09/16/18 22:10 Neutrophils # (Manual) 7.70 k/uL (1.3-7.7) 09/17/18 05:10 Lymphocytes # (Manual) 1.14 k/uL (1.0-4.8) 09/17/18 05:10 Monocytes # (Manual) 0.67 k/uL (0-1.0) 09/17/18 05:10 Metamyelocytes # (Man) 0.10 k/uL (0) H 09/17/18 05:10 Myelocytes # (Manual) 0.10 k/uL (0) H 09/16/18 22:10 Nucleated RBCs 10 /100 WBC (0-0) H 09/17/18 05:10 Manual Slide Review Performed 09/17/18 05:10 Toxic Vacuolation Present 09/16/18 22:10 Large Platelets Present 09/17/18 05:10 Polychromasia Present 09/17/18 05:10 Hypochromasia Marked 09/17/18 05:10 Poikilocytosis Moderate 09/17/18 05:10 Poikilocytosis (manual Present 09/16/18 22:10 Anisocytosis Slight 09/17/18 05:10 Microcytosis Marked 09/17/18 05:10 Target Cells Present 09/16/18 22:10 Ovalocytes Present 09/16/18 22:10 PT 15.2 sec (9.0-12.0) H 09/16/18 11:05 INR 1.5 (<1.2) H 09/16/18 11:05 APTT 28.4 sec (22.0-30.0) 09/16/18 11:05 ABG Lactic Acid 2.0 mmol/L (0.5-1.6) H 09/16/18 22:10 Sodium 133 mmol/L (137-145) L 09/17/18 05:10 Potassium 5.7 mmol/L (3.5-5.1) H 09/17/18 05:10 Chloride 104 mmol/L (98-107) 09/17/18 05:10 Carbon Dioxide 19 mmol/L (22-30) L 09/17/18 05:10 Anion Gap 10 mmol/L 09/17/18 05:10 BUN 40 mg/dL (9-20) H 09/17/18 05:10 Creatinine 2.12 mg/dL (0.66-1.25) H 09/17/18 05:10 Est GFR (CKD-EPI)AfAm 35 (>60 ml/min/1.73 sqM) 09/17/18 05:10 Est GFR (CKD-EPI)NonAf 31 (>60 ml/min/1.73 sqM) 09/17/18 05:10 Glucose 129 mg/dL (74-99) H 09/17/18 05:10 POC Glucose (mg/dL) 137 mg/dL (75-99) H 09/17/18 05:42 POC Glu Lead Web Application Developer ID Chikis [email or web address] 09/17/18 05:42 Lactic Ac Sepsis Rflx Y 09/16/18 21:10 Plasma Lactic Acid Roberto 2.8 mmol/L (0.7-2.0) H* 09/16/18 20:36 Calcium 7.4 mg/dL (8.4-10.2) L 09/17/18 05:10 Total Bilirubin 0.8 mg/dL (0.2-1.3) 09/17/18 05:10 AST 21 U/L (17-59) 09/17/18 05:10 ALT 22 U/L (21-72) 09/17/18 05:10 Alkaline Phosphatase 39 U/L (38-126) 09/17/18 05:10 Total Protein 4.7 g/dL (6.3-8.2) L 09/17/18 05:10 Albumin 2.5 g/dL (3.5-5.0) L 09/17/18 05:10 Amylase 48 U/L (30-110) 09/16/18 11:05 Lipase 73 U/L (23-300) 09/16/18 11:05 Urine Color Dark Yellow 09/17/18 01:45 Urine Appearance Turbid (Clear) 09/17/18 01:45 Urine pH 5.5 (5.0-8.0) 09/17/18 01:45 Ur Specific [place] 1.020 (1.001-1.035) 09/17/18 01:45 Urine Protein 2+ (Negative) H 09/17/18 01:45 Urine Glucose (UA) Trace (Negative) H 09/17/18 01:45 Urine Ketones Negative (Negative) 09/17/18 01:45 Urine Blood Moderate (Negative) H 09/17/18 01:45 Urine Nitrite Negative (Negative) 09/17/18 01:45 Urine Bilirubin Negative (Negative) 09/17/18 01:45 Urine Urobilinogen <2.0 mg/dL (<2.0) 09/17/18 01:45 Ur Leukocyte Esterase Small (Negative) H 09/17/18 01:45 Urine RBC 107 /hpf (0-5) H 09/17/18 01:45 Urine WBC 67 /hpf (0-5) H 09/17/18 01:45 Ur Squamous Epith Cells 36 /hpf (0-4) H 09/17/18 01:45 Amorphous Sediment Rare /hpf (None) H 09/17/18 01:45 Urine Bacteria Moderate /hpf (None) H 09/17/18 01:45 Hyaline Casts 285 /lpf (0-2) H 09/17/18 01:45 Urine Mucus Few /hpf (None) H 09/17/18 01:45 Urine Sperm Many /hpf (None) H 09/17/18 01:45 Blood Type O Positive 09/16/18 14:45 Blood Type Recheck No 09/16/18 14:45 Antibody Screen NEGATIVE 09/16/18 14:45 Spec Expiration Date 09/19/2018 - 234409/16/18 14:45 CBC & Chem 7: 09/17/18 05:10 09/17/18 05:10 Labs: Abnormal Lab Results - Last 24 Hours (Table) 09/16/18 09/16/18 09/16/18 Range/Units 11:05 11:05 11:05 Hgb 10.6 L (13.0-17.5) gm/dL Hct 38.9 L (39.0-53.0) % MCV 68.8 L (80.0-100.0) fL MCH 18.8 L (25.0-35.0) pg MCHC 27.3 L (31.0-37.0) g/dL RDW 19.9 H (11.5-15.5) % Plt Count 472 H (150-450) k/uL Lymphocytes # (Manual) (1.0-4.8) k/uL Metamyelocytes # (Man) (0) k/uL Myelocytes # (Manual) (0) k/uL Nucleated RBCs 1 H (0-0) /100 WBC PT (9.0-12.0) sec INR (<1.2) ABG Lactic Acid (0.5-1.6) mmol/L Sodium 133 L (137-145) mmol/L Potassium 5.4 H (3.5-5.1) mmol/L Chloride 96 L (98-107) mmol/L Carbon Dioxide 20 L (22-30) mmol/L BUN 36 H (9-20) mg/dL Creatinine 1.60 H (0.66-1.25) mg/dL Glucose 178 H (74-99) mg/dL POC Glucose (mg/dL) (75-99) mg/dL Plasma Lactic Acid Roberto 4.0 H* (0.7-2.0) mmol/L Calcium (8.4-10.2) mg/dL AST 78 H (17-59) U/L Total Protein (6.3-8.2) g/dL Albumin (3.5-5.0) g/dL Urine Protein (Negative) Urine Glucose (UA) (Negative) Urine Blood (Negative) Ur Leukocyte Esterase (Negative) Urine RBC (0-5) /hpf Urine WBC (0-5) /hpf Ur Squamous Epith Cells (0-4) /hpf Amorphous Sediment (None) /hpf Urine Bacteria (None) /hpf Hyaline Casts (0-2) /lpf Urine Mucus (None) /hpf Urine Sperm (None) /hpf 09/16/18 09/16/18 09/16/18 Range/Units 11:05 14:50 15:22 Hgb (13.0-17.5) gm/dL Hct (39.0-53.0) % MCV (80.0-100.0) fL MCH (25.0-35.0) pg MCHC (31.0-37.0) g/dL RDW (11.5-15.5) % Plt Count (150-450) k/uL Lymphocytes # (Manual) (1.0-4.8) k/uL Metamyelocytes # (Man) (0) k/uL Myelocytes # (Manual) (0) k/uL Nucleated RBCs (0-0) /100 WBC PT 15.2 H (9.0-12.0) sec INR 1.5 H (<1.2) ABG Lactic Acid (0.5-1.6) mmol/L Sodium (137-145) mmol/L Potassium (3.5-5.1) mmol/L Chloride (98-107) mmol/L Carbon Dioxide (22-30) mmol/L BUN (9-20) mg/dL Creatinine (0.66-1.25) mg/dL Glucose (74-99) mg/dL POC Glucose (mg/dL) 159 H (75-99) mg/dL Plasma Lactic Acid Roberto (0.7-2.0) mmol/L Calcium (8.4-10.2) mg/dL AST (17-59) U/L Total Protein (6.3-8.2) g/dL Albumin (3.5-5.0) g/dL Urine Protein 1+ H (Negative) Urine Glucose (UA) (Negative) Urine Blood (Negative) Ur Leukocyte Esterase (Negative) Urine RBC (0-5) /hpf Urine WBC (0-5) /hpf Ur Squamous Epith Cells (0-4) /hpf Amorphous Sediment (None) /hpf Urine Bacteria (None) /hpf Hyaline Casts 10 H (0-2) /lpf Urine Mucus Occasional H (None) /hpf Urine Sperm (None) /hpf 09/16/18 09/16/18 09/16/18 Range/Units 20:12 20:36 22:10 Hgb (13.0-17.5) gm/dL Hct (39.0-53.0) % MCV (80.0-100.0) fL MCH (25.0-35.0) pg MCHC (31.0-37.0) g/dL RDW (11.5-15.5) % Plt Count (150-450) k/uL Lymphocytes # (Manual) (1.0-4.8) k/uL Metamyelocytes # (Man) (0) k/uL Myelocytes # (Manual) (0) k/uL Nucleated RBCs (0-0) /100 WBC PT (9.0-12.0) sec INR (<1.2) ABG Lactic Acid 2.0 H (0.5-1.6) mmol/L Sodium (137-145) mmol/L Potassium (3.5-5.1) mmol/L Chloride (98-107) mmol/L Carbon Dioxide (22-30) mmol/L BUN (9-20) mg/dL Creatinine (0.66-1.25) mg/dL Glucose (74-99) mg/dL POC Glucose (mg/dL) 158 H (75-99) mg/dL Plasma Lactic Acid Roberto 2.8 H* (0.7-2.0) mmol/L Calcium (8.4-10.2) mg/dL AST (17-59) U/L Total Protein (6.3-8.2) g/dL Albumin (3.5-5.0) g/dL Urine Protein (Negative) Urine Glucose (UA) (Negative) Urine Blood (Negative) Ur Leukocyte Esterase (Negative) Urine RBC (0-5) /hpf Urine WBC (0-5) /hpf Ur Squamous Epith Cells (0-4) /hpf Amorphous Sediment (None) /hpf Urine Bacteria (None) /hpf Hyaline Casts (0-2) /lpf Urine Mucus (None) /hpf Urine Sperm (None) /hpf 09/16/18 09/16/18 09/17/18 Range/Units 22:10 22:10 00:04 Hgb 9.4 L (13.0-17.5) gm/dL Hct 36.4 L (39.0-53.0) % MCV 73.9 L D (80.0-100.0) fL MCH 19.1 L (25.0-35.0) pg MCHC 25.9 L (31.0-37.0) g/dL RDW 19.1 H (11.5-15.5) % Plt Count (150-450) k/uL Lymphocytes # (Manual) 0.58 L (1.0-4.8) k/uL Metamyelocytes # (Man) 0.24 H (0) k/uL Myelocytes # (Manual) 0.10 H (0) k/uL Nucleated RBCs 27 H (0-0) /100 WBC PT (9.0-12.0) sec INR (<1.2) ABG Lactic Acid (0.5-1.6) mmol/L Sodium 133 L (137-145) mmol/L Potassium 5.8 H (3.5-5.1) mmol/L Chloride (98-107) mmol/L Carbon Dioxide 19 L (22-30) mmol/L BUN 40 H (9-20) mg/dL Creatinine 1.85 H (0.66-1.25) mg/dL Glucose 158 H (74-99) mg/dL POC Glucose (mg/dL) 186 H (75-99) mg/dL Plasma Lactic Acid Roberto (0.7-2.0) mmol/L Calcium 8.1 L (8.4-10.2) mg/dL AST (17-59) U/L Total Protein (6.3-8.2) g/dL Albumin (3.5-5.0) g/dL Urine Protein (Negative) Urine Glucose (UA) (Negative) Urine Blood (Negative) Ur Leukocyte Esterase (Negative) Urine RBC (0-5) /hpf Urine WBC (0-5) /hpf Ur Squamous Epith Cells (0-4) /hpf Amorphous Sediment (None) /hpf Urine Bacteria (None) /hpf Hyaline Casts (0-2) /lpf Urine Mucus (None) /hpf Urine Sperm (None) /hpf 09/17/18 09/17/18 09/17/18 Range/Units 00:29 01:45 05:10 Hgb 9.2 L (13.0-17.5) gm/dL Hct 34.8 L (39.0-53.0) % MCV 71.0 L (80.0-100.0) fL MCH 18.7 L (25.0-35.0) pg MCHC 26.3 L (31.0-37.0) g/dL RDW 19.5 H (11.5-15.5) % Plt Count (150-450) k/uL Lymphocytes # (Manual) (1.0-4.8) k/uL Metamyelocytes # (Man) 0.10 H (0) k/uL Myelocytes # (Manual) (0) k/uL Nucleated RBCs 10 H (0-0) /100 WBC PT (9.0-12.0) sec INR (<1.2) ABG Lactic Acid (0.5-1.6) mmol/L Sodium (137-145) mmol/L Potassium (3.5-5.1) mmol/L Chloride (98-107) mmol/L Carbon Dioxide (22-30) mmol/L BUN (9-20) mg/dL Creatinine (0.66-1.25) mg/dL Glucose (74-99) mg/dL POC Glucose (mg/dL) 150 H (75-99) mg/dL Plasma Lactic Acid Roberto (0.7-2.0) mmol/L Calcium (8.4-10.2) mg/dL AST (17-59) U/L Total Protein (6.3-8.2) g/dL Albumin (3.5-5.0) g/dL Urine Protein 2+ H (Negative) Urine Glucose (UA) Trace H (Negative) Urine Blood Moderate H (Negative) Ur Leukocyte Esterase Small H (Negative) Urine RBC 107 H (0-5) /hpf Urine WBC 67 H (0-5) /hpf Ur Squamous Epith Cells 36 H (0-4) /hpf Amorphous Sediment Rare H (None) /hpf Urine Bacteria Moderate H (None) /hpf Hyaline Casts 285 H (0-2) /lpf Urine Mucus Few H (None) /hpf Urine Sperm Many H (None) /hpf 09/17/18 09/17/18 Range/Units 05:10 05:42 Hgb (13.0-17.5) gm/dL Hct (39.0-53.0) % MCV (80.0-100.0) fL MCH (25.0-35.0) pg MCHC (31.0-37.0) g/dL RDW (11.5-15.5) % Plt Count (150-450) k/uL Lymphocytes # (Manual) (1.0-4.8) k/uL Metamyelocytes # (Man) (0) k/uL Myelocytes # (Manual) (0) k/uL Nucleated RBCs (0-0) /100 WBC PT (9.0-12.0) sec INR (<1.2) ABG Lactic Acid (0.5-1.6) mmol/L Sodium 133 L (137-145) mmol/L Potassium 5.7 H (3.5-5.1) mmol/L Chloride (98-107) mmol/L Carbon Dioxide 19 L (22-30) mmol/L BUN 40 H (9-20) mg/dL Creatinine 2.12 H (0.66-1.25) mg/dL Glucose 129 H (74-99) mg/dL POC Glucose (mg/dL) 137 H (75-99) mg/dL Plasma Lactic Acid Roberto (0.7-2.0) mmol/L Calcium 7.4 L (8.4-10.2) mg/dL AST (17-59) U/L Total Protein 4.7 L (6.3-8.2) g/dL Albumin 2.5 L (3.5-5.0) g/dL Urine Protein (Negative) Urine Glucose (UA) (Negative) Urine Blood (Negative) Ur Leukocyte Esterase (Negative) Urine RBC (0-5) /hpf Urine WBC (0-5) /hpf Ur Squamous Epith Cells (0-4) /hpf Amorphous Sediment (None) /hpf Urine Bacteria (None) /hpf Hyaline Casts (0-2) /lpf Urine Mucus (None) /hpf Urine Sperm (None) /hpf Assessment and Plan Plan: 1. Abdominal pain secondary to perforated gastric ulcer, ischemic colon at the splenic flexure with bowel obstruction status post exploratory laparotomy, lysis of adhesions, repair of gastric ulcer, transverse colectomy and takedown of the splenic flexure. Continue fluconazole, Flagyl IV, Zosyn IV. Dr. Benedict on consult. 2. Hypovolemic shock status post IV fluid resuscitation and vasopressors. Patient is currently on norepinephrine and vasopressin. 3. Acute on chronic hypoxic respiratory failure secondary to above. Patient is currently intubated and on mechanical ventilation. Patient is managed by Dr. Red. 4. Acute kidney injury secondary to shock. Continue IV fluids and vasopresso rs, continue to monitor closely 5. Lactic acidosis. 6. Paroxysmal atrial fibrillation with A. fib RVR. Eliquis is on hold. Patient is status post Kcentra for reversal of eliquis. 7. Chronic diastolic heart failure. 8. Severe COPD. 9. Obstructive sleep apnea with CPAP, noncompliance. 10. Mild intermittent asthma, stable. 11. Hyperlipidemia. 12. Gastroesophageal reflux disease and GI prophylaxis. Continue Protonix 40 mg IV daily. 13. Diabetes mellitus type 2. Continue NovoLog scale every 6 hours. Hold metformin and Januvia. Patient will be admitted to the hospital for a minimum of 5 night stay. Discharge plan: To be determined. Most likely subacute rehab. Impression and plan of care have been directed as dictated by the signing physician. Loreta Medellin nurse practitioner acting as scribe for signing physician.
--- NOTE | 2018-09-17 15:33 | P.PN ---
Subjective Progress Note Date: 09/17/18 CHIEF COMPLAINT: abdominal pain HISTORY OF PRESENT ILLNESS: patient underwent exploratory laparotomy, lysis of adhesions, decompression of colon and small bowel, transverse colectomy with takedown of splenic flexure, and repair of gastric ulcer yesterday with Dr. De Leon secondary to pneumoperitoneum, perforated gastric ulcer, ischemic colon at splenic flexure, and bowel obstruction. POD #1. The patient remains intubated on mechanical ventilation in the intensive care unit. According to nursing, patient received 5L in boluses in the ER, 3L overnight, and 2L thus far during the day. He remains on vasopressors with levophed at approximately 60mcg/min and vasopressin. Urine output marginal. WBC 9.5. Hemoglobin 9.2. remains tachycardic with a rate in the 130s. Temperature 100.4F PHYSICAL EXAM: VITAL SIGNS: Reviewed. GENERAL: Well-developed in acute distress. Remains on sedation on mechanical ventilation. HEENT: ET tube noted. NG to LIS. No sclera icterus. Extraocular movements grossly intact. Dry buccal mucosa with evidence of old blood. Head is atraumatic, normocephalic. ABDOMEN: Abdomen distended. Firm. Dressing CDI. CHAVEZ drain with serosanguineous drainage. Left-sided colostomy currently nonfunctioning without stool output. Draining small amount of serosanguineous drainage. Ostomy appears viable. NEUROLOGIC: Patient sedated on mechanical ventilation ASSESSMENT: 1. Abdominal pain 2. Pneumoperitoneum 3. S/P exploratory laparotomy, lysis of adhesions, decompression of colon and small bowel, transverse colectomy with takedown of splenic flexure, and repair of gastric ulcer secondary to pneumoperitoneum, perforated gastric ulcer, ischemic colon at splenic flexure, and bowel obstruction 4. Septic shock, present on admission secondary to above 5. History of atrial fibrillation, on long-term anticoagulation with Eliquis 6. History of bowel obstruction 7. History of laparoscopic Bruce fundoplication 8. History of hiatal hernia repair with mesh PLAN: 1. Continue ventilator management per Dr. Red 2. Wean vasopressors as tolerated 3. Continue antibiotics. Dr. Benedict consulted. 4. Continue to hold Eliquis 5. Monitor labs 6. No tube feeding or TPN at this time. Will re-evaluate daily 7. Further recommendations pending patient course. Patient remains critically ill with guarded prognosis. Nurse practitioner note has been reviewed by physician. Signing provider agrees with the documented findings, assessment, and plan of care. Objective - Vital Signs Vital signs: Vital Signs Temp 100.4 F H 09/17/18 12:00 Pulse 133 H 09/17/18 15:00 Resp 26 H 09/17/18 15:00 BP 126/77 09/17/18 15:00 Pulse Ox 96 09/17/18 15:00 Intake & Output 09/16/18 09/17/18 09/17/18 18:59 06:59 18:59 Intake Total 4569.5 6161.040 2075.655 Output Total 100 430 955 Balance 4469.5 5731.040 1120.655 Weight 148.325 kg 154.6 kg Intake: IV 4569.5 5324 1224 Piperacillin-Tazobactam 3 100 .375 gm In Sodium Chloride 0.9% 100 ml @ 25 mls/hr IVPB Q8HR [facility] Rx# :[id number] Pressure Bag 24 24 Sodium Chloride 0.9% 1, 1200 1200 000 ml @ 150 mls/hr IV . Q6H40M [facility] Rx#:[id number] Sodium Chloride 0.9% 1, 1000 000 ml @ 999 mls/hr IV . Q1H1M [facility] Rx#:[id number] Sodium Chloride 0.9% 1, 2000 000 ml @ 999 mls/hr IV . Q1H1M [facility] Rx#:[id number] Intake, IV Titration 837.040 851.655 Amount Norepinephrine 8 mg In 745.534 692.585 Sodium Chloride 0.9% 250 ml @ 0.05 MCG/KG/MIN 14. 35 mls/hr IV .[id number] [facility] Rx#:[id number] Propofol 1,000 mg In 91.506 159.070 Empty Bag 1 bag @ Titrate IV .Q0M [facility] Rx#: [id number] Output: Gastric Drainage 100 Drainage 80 30 Abdomen 80 30 Urine 250 925 Estimated Blood Loss 100 Other: Voiding Method Indwelling Catheter Indwelling Catheter ABP, PAP, CO, CI - Last Documented Arterial Blood Pressure 103/59 - Labs CBC & Chem 7: 09/17/18 05:10 09/17/18 05:10 Labs: Abnormal Lab Results - Last 24 Hours (Table) 09/16/18 09/16/18 09/16/18 Range/Units 15:22 20:12 20:36 Hgb (13.0-17.5) gm/dL Hct (39.0-53.0) % MCV (80.0-100.0) fL MCH (25.0-35.0) pg MCHC (31.0-37.0) g/dL RDW (11.5-15.5) % Lymphocytes # (Manual) (1.0-4.8) k/uL Metamyelocytes # (Man) (0) k/uL Myelocytes # (Manual) (0) k/uL Nucleated RBCs (0-0) /100 WBC ABG Lactic Acid (0.5-1.6) mmol/L Sodium (137-145) mmol/L Potassium (3.5-5.1) mmol/L Carbon Dioxide (22-30) mmol/L BUN (9-20) mg/dL Creatinine (0.66-1.25) mg/dL Glucose (74-99) mg/dL POC Glucose (mg/dL) 159 H 158 H (75-99) mg/dL Plasma Lactic Acid Roberto 2.8 H* (0.7-2.0) mmol/L Calcium (8.4-10.2) mg/dL Total Protein (6.3-8.2) g/dL Albumin (3.5-5.0) g/dL Urine Protein (Negative) Urine Glucose (UA) (Negative) Urine Blood (Negative) Ur Leukocyte Esterase (Negative) Urine RBC (0-5) /hpf Urine WBC (0-5) /hpf Ur Squamous Epith Cells (0-4) /hpf Amorphous Sediment (None) /hpf Urine Bacteria (None) /hpf Hyaline Casts (0-2) /lpf Urine Mucus (None) /hpf Urine Sperm (None) /hpf 09/16/18 09/16/18 09/16/18 Range/Units 22:10 22:10 22:10 Hgb 9.4 L (13.0-17.5) gm/dL Hct 36.4 L (39.0-53.0) % MCV 73.9 L D (80.0-100.0) fL MCH 19.1 L (25.0-35.0) pg MCHC 25.9 L (31.0-37.0) g/dL RDW 19.1 H (11.5-15.5) % Lymphocytes # (Manual) 0.58 L (1.0-4.8) k/uL Metamyelocytes # (Man) 0.24 H (0) k/uL Myelocytes # (Manual) 0.10 H (0) k/uL Nucleated RBCs 27 H (0-0) /100 WBC ABG Lactic Acid 2.0 H (0.5-1.6) mmol/L Sodium 133 L (137-145) mmol/L Potassium 5.8 H (3.5-5.1) mmol/L Carbon Dioxide 19 L (22-30) mmol/L BUN 40 H (9-20) mg/dL Creatinine 1.85 H (0.66-1.25) mg/dL Glucose 158 H (74-99) mg/dL POC Glucose (mg/dL) (75-99) mg/dL Plasma Lactic Acid Roberto (0.7-2.0) mmol/L Calcium 8.1 L (8.4-10.2) mg/dL Total Protein (6.3-8.2) g/dL Albumin (3.5-5.0) g/dL Urine Protein (Negative) Urine Glucose (UA) (Negative) Urine Blood (Negative) Ur Leukocyte Esterase (Negative) Urine RBC (0-5) /hpf Urine WBC (0-5) /hpf Ur Squamous Epith Cells (0-4) /hpf Amorphous Sediment (None) /hpf Urine Bacteria (None) /hpf Hyaline Casts (0-2) /lpf Urine Mucus (None) /hpf Urine Sperm (None) /hpf 09/17/18 09/17/18 09/17/18 Range/Units 00:04 00:29 01:45 Hgb (13.0-17.5) gm/dL Hct (39.0-53.0) % MCV (80.0-100.0) fL MCH (25.0-35.0) pg MCHC (31.0-37.0) g/dL RDW (11.5-15.5) % Lymphocytes # (Manual) (1.0-4.8) k/uL Metamyelocytes # (Man) (0) k/uL Myelocytes # (Manual) (0) k/uL Nucleated RBCs (0-0) /100 WBC ABG Lactic Acid (0.5-1.6) mmol/L Sodium (137-145) mmol/L Potassium (3.5-5.1) mmol/L Carbon Dioxide (22-30) mmol/L BUN (9-20) mg/dL Creatinine (0.66-1.25) mg/dL Glucose (74-99) mg/dL POC Glucose (mg/dL) 186 H 150 H (75-99) mg/dL Plasma Lactic Acid Roberto (0.7-2.0) mmol/L Calcium (8.4-10.2) mg/dL Total Protein (6.3-8.2) g/dL Albumin (3.5-5.0) g/dL Urine Protein 2+ H (Negative) Urine Glucose (UA) Trace H (Negative) Urine Blood Moderate H (Negative) Ur Leukocyte Esterase Small H (Negative) Urine RBC 107 H (0-5) /hpf Urine WBC 67 H (0-5) /hpf Ur Squamous Epith Cells 36 H (0-4) /hpf Amorphous Sediment Rare H (None) /hpf Urine Bacteria Moderate H (None) /hpf Hyaline Casts 285 H (0-2) /lpf Urine Mucus Few H (None) /hpf Urine Sperm Many H (None) /hpf 09/17/18 09/17/18 09/17/18 Range/Units 05:10 05:10 05:42 Hgb 9.2 L (13.0-17.5) gm/dL Hct 34.8 L (39.0-53.0) % MCV 71.0 L (80.0-100.0) fL MCH 18.7 L (25.0-35.0) pg MCHC 26.3 L (31.0-37.0) g/dL RDW 19.5 H (11.5-15.5) % Lymphocytes # (Manual) (1.0-4.8) k/uL Metamyelocytes # (Man) 0.10 H (0) k/uL Myelocytes # (Manual) (0) k/uL Nucleated RBCs 10 H (0-0) /100 WBC ABG Lactic Acid (0.5-1.6) mmol/L Sodium 133 L (137-145) mmol/L Potassium 5.7 H (3.5-5.1) mmol/L Carbon Dioxide 19 L (22-30) mmol/L BUN 40 H (9-20) mg/dL Creatinine 2.12 H (0.66-1.25) mg/dL Glucose 129 H (74-99) mg/dL POC Glucose (mg/dL) 137 H (75-99) mg/dL Plasma Lactic Acid Roberto (0.7-2.0) mmol/L Calcium 7.4 L (8.4-10.2) mg/dL Total Protein 4.7 L (6.3-8.2) g/dL Albumin 2.5 L (3.5-5.0) g/dL Urine Protein (Negative) Urine Glucose (UA) (Negative) Urine Blood (Negative) Ur Leukocyte Esterase (Negative) Urine RBC (0-5) /hpf Urine WBC (0-5) /hpf Ur Squamous Epith Cells (0-4) /hpf Amorphous Sediment (None) /hpf Urine Bacteria (None) /hpf Hyaline Casts (0-2) /lpf Urine Mucus (None) /hpf Urine Sperm (None) /hpf 09/17/18 09/17/18 Range/Units 10:24 12:11 Hgb (13.0-17.5) gm/dL Hct (39.0-53.0) % MCV (80.0-100.0) fL MCH (25.0-35.0) pg MCHC (31.0-37.0) g/dL RDW (11.5-15.5) % Lymphocytes # (Manual) (1.0-4.8) k/uL Metamyelocytes # (Man) (0) k/uL Myelocytes # (Manual) (0) k/uL Nucleated RBCs (0-0) /100 WBC ABG Lactic Acid (0.5-1.6) mmol/L Sodium (137-145) mmol/L Potassium (3.5-5.1) mmol/L Carbon Dioxide (22-30) mmol/L BUN (9-20) mg/dL Creatinine (0.66-1.25) mg/dL Glucose (74-99) mg/dL POC Glucose (mg/dL) 130 H 149 H (75-99) mg/dL Plasma Lactic Acid Roberto (0.7-2.0) mmol/L Calcium (8.4-10.2) mg/dL Total Protein (6.3-8.2) g/dL Albumin (3.5-5.0) g/dL Urine Protein (Negative) Urine Glucose (UA) (Negative) Urine Blood (Negative) Ur Leukocyte Esterase (Negative) Urine RBC (0-5) /hpf Urine WBC (0-5) /hpf Ur Squamous Epith Cells (0-4) /hpf Amorphous Sediment (None) /hpf Urine Bacteria (None) /hpf Hyaline Casts (0-2) /lpf Urine Mucus (None) /hpf Urine Sperm (None) /hpf Microbiology - Last 24 Hours (Table) 09/17/18 01:45 Urine Culture - Preliminary Urine,Voided
[2018-09-17] MEDS: HYDROmorphone 1 MG/ML 1 ML SYRINGE IVP PRN (15:39)
[2018-09-17 18:03] LABS: Glucose,Whole Blood 161 mg/dL (75-99)
[2018-09-17 23:25] LABS: Glucose,Whole Blood 141 mg/dL (75-99)
--- NOTE | 2018-09-18 00:34 | P.CONS ---
History of Present Illness - Reason for Consult Consult date: 09/17/18 Abdominal sepsis Requesting physician: Duane De Leon - Chief Complaint Abdominal pain times few days - History of Present Illness Patient is a 72-year-old male presented to [facility] ER yesterday with chief complaints of abdominal pain for a few days patient did have a CT of abdominal pelvis that was suggestive of pneumoperitoneum surgery was consulted patient was taken to the OR he was noticed to have perforated gastric ulcer and ischemic splenic fracture patient is status post laparotomy for repair of the perforated gastric ulcer partial colectomy and takedown of the transverse colon, patient subsequently has been admitted to the ICU with sepsis in this patient did have significant hypertension requiring multiple fluid boluses and pressor support patient was initially started on Zosyn with the Flagyl and Diflucan added maintenance with this morning infectious disease was consulted for further recommendation regarding by therapy patient was afebrile on presentation subsequent has been running a low-grade fever 100.8 white count has been normal so far kidney function is slightly elevated at 2.12 on information has been obtained from a thorough review of the chart as the patient is currently intubated on the vent and no family member is available at the bedside Review of Systems Positive points has been mentioned in HPI complete review could not be obtained because of the patient mental status Past Medical History Past Medical History: Atrial Fibrillation, Asthma, Blood Disorder, Chest Pain / Angina, COPD, GERD/Reflux, Hyperlipidemia, Hypertension, Skin Disorder, Sleep Apnea/CPAP/BIPAP Additional Past Medical History / Comment(s): COPD, asthma, obesity, paroxysmal atrial fibrillation, psoriasis,hemoglobin Heath with polycythemia, pericardial effusion, hx hiatal hernia, hx bowel obstruction, uses oxygen 2L at , 09/07/2018-cellulitis of the anterior abdominal wall History of Any Multi-Drug Resistant Organisms: None Reported Past Surgical History: Appendectomy, Hernia Repair Additional Past Surgical History / Comment(s): Laparoscopic lucia fundloplasty and mesh repair of hiatal hernia. arthroscopy left knee Past Anesthesia/Blood Transfusion Reactions: Motion Sickness Additional Past Anesthesia/Blood Transfusion Reaction / Comm: . Past Psychological History: No Psychological Hx Reported Smoking Status: Former smoker Past Alcohol Use History: None Reported Past Drug Use History: None Reported - Past Family History Sister(s) Family Medical History: Deep Vein Thrombosis (DVT) Brother(s) Family Medical History: Myocardial Infarction (ID) Additional Family Medical History / Comment(s): Brother had a ID at age 71 yrs. Father Family Medical History: Cancer Additional Family Medical History / Comment(s): . Mother Family Medical History: Cancer Additional Family Medical History / Comment(s): . Medications and Allergies Home Medications Medication Instructions Recorded Confirmed Type Multivitamin [Men's Multi-Vitamin] 1 tab PO DAILY 10/08/14 09/16/18 History Aspirin EC [Ecotrin Low Dose] 81 mg PO DAILY #0 tablet. 01/11/15 09/16/18 Rx Atorvastatin [Lipitor] 20 mg PO HS #30 tab 01/11/15 09/16/18 Rx Montelukast [Singulair] 10 mg PO HS #30 tab 01/11/15 09/16/18 Rx Potassium Chloride [K-Tab ER] 20 meq PO BID 11/12/15 09/16/18 History Albuterol Sulfate [Proair 1 puff INHALATION RT-BID 01/08/17 09/16/18 History Respiclick] Ipratropium-Albuterol Nebulize 3 ml INHALATION RT-QID PRN 01/08/17 09/16/18 History [Duoneb 0.5 mg-3 mg/3 ml Soln] Sennosides-Docusate Sodium 1 tab PO BID #60 tablet 01/14/17 09/16/18 Rx [Senokot-S] Ferrous Sulfate [Iron (65 MG 325 mg PO DAILY 09/07/18 09/16/18 History Elemental)] Umeclidinium Brm/Vilanterol Tr 1 puff INHALATION RT-DAILY 09/07/18 09/16/18 History [Anoro Ellipta 62.5-25 Mcg INH] metFORMIN HCL 1,000 mg PO AC-BRKFST 09/07/18 09/16/18 History metFORMIN HCL 1,500 mg PO AC-SUPPER 09/07/18 09/16/18 History sitaGLIPtin [Januvia] 100 mg PO DAILY 09/07/18 09/16/18 History Apixaban [Eliquis] 5 mg PO BID #60 tab 09/11/18 09/16/18 Rx Amiodarone [Cordarone] 200 mg PO BID #60 tab 09/12/18 09/16/18 Rx Furosemide [Lasix] 60 mg PO BID@0900,1600 #180 tab 09/12/18 09/16/18 Rx Hydrocortisone [Hydrocortisone 1 applic TOPICAL BID #28 gm 09/12/18 09/16/18 Rx 0.05%] Nystatin 100,000 Unit/gm Powd 1 applic TOPICAL BID #0 applic 09/12/18 09/16/18 Rx [Mycostatin Powder] Spironolactone [Aldactone] 25 mg PO BID #60 tab 09/12/18 09/16/18 Rx Verapamil Sr [Isoptin Sr] 240 mg PO BID #60 tablet.er 09/12/18 09/16/18 Rx predniSONE 40 mg PO DAILY #14 tab 09/12/18 09/16/18 Rx Amoxicillin/Potassium Clav 1 tab PO Q12HR 09/16/18 09/16/18 History [Augmentin 875-125 Tablet] Allergies Allergy/AdvReac Type Severity Reaction Status Date / Time acetaminophen [From [place]] AdvReac see Verified 09/16/18 10:25 comments hydrocodone [From [place]] AdvReac see Verified 09/16/18 10:25 comments warfarin [From Coumadin] AdvReac SEE Verified 09/16/18 10:25 COMMENTS Physical Exam Vitals: Vital Signs Temp Pulse Pulse Resp BP BP Pulse Ox 09/17/18 11:30 125 H 09/17/18 11:11 128 H 09/17/18 11:00 128 H 27 H 137/73 96 09/17/18 10:30 126 H 28 H 137/73 96 09/17/18 10:00 128 H 23 117/75 97 09/17/18 09:30 126 H 26 H 117/75 97 09/17/18 09:00 126 H 26 H 127/76 97 09/17/18 08:30 126 H 26 H 127/76 98 09/17/18 08:00 100.4 F H 126 H 25 H 132/78 98 09/17/18 07:30 126 H 26 H 132/78 98 09/17/18 07:00 126 H 21 98 09/17/18 06:30 125 H 26 H 126/68 98 09/17/18 06:00 125 H 26 H 98 09/17/18 05:30 126 H 26 H 98 09/17/18 05:00 126 H 26 H 119/71 98 09/17/18 04:30 128 H 26 H 119/71 98 09/17/18 04:00 99.9 F H 126 H 26 H 108/68 98 09/17/18 03:30 125 H 26 H 99 09/17/18 03:00 126 H 26 H 107/69 99 09/17/18 02:30 100.5 F H 126 H 26 H 115/73 98 09/17/18 02:00 125 H 26 H 117/71 98 09/17/18 01:30 124 H 26 H 122/69 98 09/17/18 01:00 124 H 26 H 98 09/17/18 00:30 126 H 26 H 99 09/17/18 00:00 124 H 26 H 99 09/16/18 23:38 120 H 26 H 99 09/16/18 23:30 123 H 26 H 99 09/16/18 23:00 122 H 26 H 98 09/16/18 22:30 98.5 F 118 H 26 H 100 09/16/18 22:00 113 H 20 100 09/16/18 21:30 113 H 20 100 09/16/18 21:00 114 H 20 139/82 99 09/16/18 20:30 97.7 F 108 H 20 09/16/18 20:15 94.3 F L 106 H 20 100 09/16/18 16:19 96 24 102/63 95 09/16/18 15:52 91 24 105/64 95 09/16/18 15:28 98.1 F 102 H 32 H 98/69 95 09/16/18 15:20 97.6 F 91 20 111/55 95 09/16/18 15:00 96 31 H 101/65 93 L 09/16/18 14:50 95 35 H 101/65 94 L 09/16/18 14:40 89 20 98/70 94 L 09/16/18 14:30 96 27 H 98/70 09/16/18 14:20 105 H 26 H 97/70 09/16/18 14:10 88 33 H 97/70 09/16/18 14:00 110 H 22 09/16/18 13:50 96 31 H 94 L 09/16/18 13:40 98 31 H 104/63 94 L 09/16/18 13:30 110 H 25 H 104/63 94 L 09/16/18 13:20 110 H 31 H 117/71 93 L 09/16/18 13:10 123 H 25 H 117/71 94 L 09/16/18 13:00 128 H 35 H 115/69 94 L 09/16/18 12:50 105 H 30 H 115/69 94 L 09/16/18 12:40 115 H 35 H 114/78 98 09/16/18 12:30 114/78 09/16/18 12:20 112 H 31 H 111/78 95 09/16/18 12:10 115 H 28 H 111/78 95 Intake and Output 09/16/18 09/17/18 09/17/18 22:59 06:59 14:59 Intake Total 5693.871 5036.669 1155.039 Output Total 250 280 350 Balance 5443.871 4756.669 805.039 Intake: IV 5569.5 4324 612 Piperacillin-Tazobactam 3 100 .375 gm In Sodium Chloride 0.9% 100 ml @ 25 mls/hr IVPB Q8HR [facility] Rx# :[id number] Pressure Bag 24 12 Sodium Chloride 0.9% 1, 1200 600 000 ml @ 150 mls/hr IV . Q6H40M [facility] Rx#:[id number] Sodium Chloride 0.9% 1, 1000 000 ml @ 999 mls/hr IV . Q1H1M STA Rx#:[id number] Sodium Chloride 0.9% 1, 2000 000 ml @ 999 mls/hr IV . Q1H1M STA Rx#:[id number] Intake, IV Titration 124.371 712.669 543.039 Amount Norepinephrine 8 mg In 124.371 621.163 462.042 Sodium Chloride 0.9% 250 ml @ 0.05 MCG/KG/MIN 14. 35 mls/hr IV .[id number] [facility] Rx#:[id number] Propofol 1,000 mg In 91.506 80.997 Empty Bag 1 bag @ Titrate IV .Q0M [facility] Rx#: [id number] Output: Gastric Drainage 100 Drainage 80 30 Abdomen 80 30 Urine 50 200 320 Estimated Blood Loss 100 Other: Voiding Method Indwelling Catheter Indwelling Catheter Weight 151.8 kg 154.6 kg ABP, PAP, CO, CI - Last 8 Hours Arterial Blood Pressure 96/58 Arterial Blood Pressure 109/64 Arterial Blood Pressure 84/68 Arterial Blood Pressure 109/63 Arterial Blood Pressure 92/60 Arterial Blood Pressure 101/58 Arterial Blood Pressure 95/58 Arterial Blood Pressure 78/61 Arterial Blood Pressure 67/53 Arterial Blood Pressure 91/51 Arterial Blood Pressure 86/49 Arterial Blood Pressure 71/49 Arterial Blood Pressure 88/54 Arterial Blood Pressure 86/54 GENERAL DESCRIPTION: Elderly male lying in bed, intubated on the vent No tachypnea or accessory muscle of respiration use. HEENT: Shows Pallor , no scleral icterus. Orally intubated limited examination of oral cavity NECK: Trachea central, no thyromegaly. LUNGS: Unlabored breathing. Decreased breath sound at the base. No wheeze or crackle. HEART: S1, S2, regular rate and rhythm. No loud murmur ABDOMEN: Soft, no tenderness , guarding or rigidity, no organomegaly EXTREMITIES: No edema of feet. SKIN: No rash, no masses palpable. NEUROLOGICAL: The patient is sedated on the vent. Results CBC & Chem 7: 09/17/18 05:10 09/17/18 05:10 Labs: Abnormal Lab Results - Last 24 Hours (Table) 09/16/18 09/16/18 09/16/18 Range/Units 11:05 14:50 15:22 Hgb (13.0-17.5) gm/dL Hct (39.0-53.0) % MCV (80.0-100.0) fL MCH (25.0-35.0) pg MCHC (31.0-37.0) g/dL RDW (11.5-15.5) % Lymphocytes # (Manual) (1.0-4.8) k/uL Metamyelocytes # (Man) (0) k/uL Myelocytes # (Manual) (0) k/uL Nucleated RBCs 1 H (0-0) /100 WBC ABG Lactic Acid (0.5-1.6) mmol/L Sodium (137-145) mmol/L Potassium (3.5-5.1) mmol/L Carbon Dioxide (22-30) mmol/L BUN (9-20) mg/dL Creatinine (0.66-1.25) mg/dL Glucose (74-99) mg/dL POC Glucose (mg/dL) 159 H (75-99) mg/dL Plasma Lactic Acid Roberto (0.7-2.0) mmol/L Calcium (8.4-10.2) mg/dL Total Protein (6.3-8.2) g/dL Albumin (3.5-5.0) g/dL Urine Protein 1+ H (Negative) Urine Glucose (UA) (Negative) Urine Blood (Negative) Ur Leukocyte Esterase (Negative) Urine RBC (0-5) /hpf Urine WBC (0-5) /hpf Ur Squamous Epith Cells (0-4) /hpf Amorphous Sediment (None) /hpf Urine Bacteria (None) /hpf Hyaline Casts 10 H (0-2) /lpf Urine Mucus Occasional H (None) /hpf Urine Sperm (None) /hpf 09/16/18 09/16/18 09/16/18 Range/Units 20:12 20:36 22:10 Hgb (13.0-17.5) gm/dL Hct (39.0-53.0) % MCV (80.0-100.0) fL MCH (25.0-35.0) pg MCHC (31.0-37.0) g/dL RDW (11.5-15.5) % Lymphocytes # (Manual) (1.0-4.8) k/uL Metamyelocytes # (Man) (0) k/uL Myelocytes # (Manual) (0) k/uL Nucleated RBCs (0-0) /100 WBC ABG Lactic Acid 2.0 H (0.5-1.6) mmol/L Sodium (137-145) mmol/L Potassium (3.5-5.1) mmol/L Carbon Dioxide (22-30) mmol/L BUN (9-20) mg/dL Creatinine (0.66-1.25) mg/dL Glucose (74-99) mg/dL POC Glucose (mg/dL) 158 H (75-99) mg/dL Plasma Lactic Acid Roberto 2.8 H* (0.7-2.0) mmol/L Calcium (8.4-10.2) mg/dL Total Protein (6.3-8.2) g/dL Albumin (3.5-5.0) g/dL Urine Protein (Negative) Urine Glucose (UA) (Negative) Urine Blood (Negative) Ur Leukocyte Esterase (Negative) Urine RBC (0-5) /hpf Urine WBC (0-5) /hpf Ur Squamous Epith Cells (0-4) /hpf Amorphous Sediment (None) /hpf Urine Bacteria (None) /hpf Hyaline Casts (0-2) /lpf Urine Mucus (None) /hpf Urine Sperm (None) /hpf 09/16/18 09/16/18 09/17/18 Range/Units 22:10 22:10 00:04 Hgb 9.4 L (13.0-17.5) gm/dL Hct 36.4 L (39.0-53.0) % MCV 73.9 L D (80.0-100.0) fL MCH 19.1 L (25.0-35.0) pg MCHC 25.9 L (31.0-37.0) g/dL RDW 19.1 H (11.5-15.5) % Lymphocytes # (Manual) 0.58 L (1.0-4.8) k/uL Metamyelocytes # (Man) 0.24 H (0) k/uL Myelocytes # (Manual) 0.10 H (0) k/uL Nucleated RBCs 27 H (0-0) /100 WBC ABG Lactic Acid (0.5-1.6) mmol/L Sodium 133 L (137-145) mmol/L Potassium 5.8 H (3.5-5.1) mmol/L Carbon Dioxide 19 L (22-30) mmol/L BUN 40 H (9-20) mg/dL Creatinine 1.85 H (0.66-1.25) mg/dL Glucose 158 H (74-99) mg/dL POC Glucose (mg/dL) 186 H (75-99) mg/dL Plasma Lactic Acid Roberto (0.7-2.0) mmol/L Calcium 8.1 L (8.4-10.2) mg/dL Total Protein (6.3-8.2) g/dL Albumin (3.5-5.0) g/dL Urine Protein (Negative) Urine Glucose (UA) (Negative) Urine Blood (Negative) Ur Leukocyte Esterase (Negative) Urine RBC (0-5) /hpf Urine WBC (0-5) /hpf Ur Squamous Epith Cells (0-4) /hpf Amorphous Sediment (None) /hpf Urine Bacteria (None) /hpf Hyaline Casts (0-2) /lpf Urine Mucus (None) /hpf Urine Sperm (None) /hpf 09/17/18 09/17/18 09/17/18 Range/Units 00:29 01:45 05:10 Hgb 9.2 L (13.0-17.5) gm/dL Hct 34.8 L (39.0-53.0) % MCV 71.0 L (80.0-100.0) fL MCH 18.7 L (25.0-35.0) pg MCHC 26.3 L (31.0-37.0) g/dL RDW 19.5 H (11.5-15.5) % Lymphocytes # (Manual) (1.0-4.8) k/uL Metamyelocytes # (Man) 0.10 H (0) k/uL Myelocytes # (Manual) (0) k/uL Nucleated RBCs 10 H (0-0) /100 WBC ABG Lactic Acid (0.5-1.6) mmol/L Sodium (137-145) mmol/L Potassium (3.5-5.1) mmol/L Carbon Dioxide (22-30) mmol/L BUN (9-20) mg/dL Creatinine (0.66-1.25) mg/dL Glucose (74-99) mg/dL POC Glucose (mg/dL) 150 H (75-99) mg/dL Plasma Lactic Acid Roberto (0.7-2.0) mmol/L Calcium (8.4-10.2) mg/dL Total Protein (6.3-8.2) g/dL Albumin (3.5-5.0) g/dL Urine Protein 2+ H (Negative) Urine Glucose (UA) Trace H (Negative) Urine Blood Moderate H (Negative) Ur Leukocyte Esterase Small H (Negative) Urine RBC 107 H (0-5) /hpf Urine WBC 67 H (0-5) /hpf Ur Squamous Epith Cells 36 H (0-4) /hpf Amorphous Sediment Rare H (None) /hpf Urine Bacteria Moderate H (None) /hpf Hyaline Casts 285 H (0-2) /lpf Urine Mucus Few H (None) /hpf Urine Sperm Many H (None) /hpf 09/17/18 09/17/18 09/17/18 Range/Units 05:10 05:42 10:24 Hgb (13.0-17.5) gm/dL Hct (39.0-53.0) % MCV (80.0-100.0) fL MCH (25.0-35.0) pg MCHC (31.0-37.0) g/dL RDW (11.5-15.5) % Lymphocytes # (Manual) (1.0-4.8) k/uL Metamyelocytes # (Man) (0) k/uL Myelocytes # (Manual) (0) k/uL Nucleated RBCs (0-0) /100 WBC ABG Lactic Acid (0.5-1.6) mmol/L Sodium 133 L (137-145) mmol/L Potassium 5.7 H (3.5-5.1) mmol/L Carbon Dioxide 19 L (22-30) mmol/L BUN 40 H (9-20) mg/dL Creatinine 2.12 H (0.66-1.25) mg/dL Glucose 129 H (74-99) mg/dL POC Glucose (mg/dL) 137 H 130 H (75-99) mg/dL Plasma Lactic Acid Roberto (0.7-2.0) mmol/L Calcium 7.4 L (8.4-10.2) mg/dL Total Protein 4.7 L (6.3-8.2) g/dL Albumin 2.5 L (3.5-5.0) g/dL Urine Protein (Negative) Urine Glucose (UA) (Negative) Urine Blood (Negative) Ur Leukocyte Esterase (Negative) Urine RBC (0-5) /hpf Urine WBC (0-5) /hpf Ur Squamous Epith Cells (0-4) /hpf Amorphous Sediment (None) /hpf Urine Bacteria (None) /hpf Hyaline Casts (0-2) /lpf Urine Mucus (None) /hpf Urine Sperm (None) /hpf Microbiology - Last 24 Hours (Table) 09/17/18 01:45 Urine Culture - Preliminary Urine,Voided Assessment and Plan Assessment: 1-patient with abdominal sepsis in this patient who did have hypotension requiring pressor support fever in this patient who did have evidence of p erforated gastric ulcer in addition to ischemic splenic flexure of the colon status post laparotomy and extensive surgery including lysis of addition to repair of the gastric ulcer and resection of ischemic colon will need to cover for the 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
[2018-09-18] MEDS: SODIUM CHLORIDE 0.9% 50 ML with VASOPRESSIN 20 UNIT IVPB SCH ×6 (01:10→23:40)
[2018-09-18] MEDS: PROPOFOL 1,000 MG in EMPTY BAG 1 BAG IV SCH ×7 (02:58→22:38)
[2018-09-18 04:28] LABS: Anisocytosis Slight; Basophils % (A) 0 %; Eosinophils % (A) 0 %; HCT 33.2 % (39.0-53.0); HGB 8.5 gm/dL (13.0-17.5); Hypochromasia Marked; Lymphocytes # (A) 0.5 k/uL (1.0-4.8); Lymphocytes % (A) 5 %; MCH 18.8 pg (25.0-35.0); MCHC 25.6 g/dL (31.0-37.0); MCV 73.5 fL (80.0-100.0); Mean Platelet Volume 7.3; Microcytosis Moderate; Monocytes # (A) 0.6 k/uL (0-1.0); Monocytes % (A) 6 %; Neutrophils # (A) 8.4 k/uL (1.3-7.7); Neutrophils % (A) 87 %; Platelet Count 368 k/uL (150-450); Poikilocytosis Moderate; RBC 4.51 m/uL (4.30-5.90); RDW 19.2 % (11.5-15.5); WBC 9.6 k/uL (3.8-10.6)
[2018-09-18 04:40] LABS: ABG Base Excess -6.1 mmol/L; ABG HCO3 19 mmol/L (21-25); ABG Oxygen Saturation 99.4 % (94-97); ABG PCO2 35 mmHg (35-45); ABG PH 7.36 (7.35-7.45); ABG PO2 109 mmHg (83-108); ABG TCO2 21 mmol/L (19-24)
[2018-09-18 04:44] LABS: Albumin 2.4 g/dL (3.5-5.0); Calcium 7.5 mg/dL (8.4-10.2); Potassium 4.9 mmol/L (3.5-5.1); Total Bilirubin 0.7 mg/dL (0.2-1.3); Total Protein 4.6 g/dL (6.3-8.2)
[2018-09-18 05:11] LABS: Allen Test Performed? no
[2018-09-18] MEDS: NOREPINEPHRINE 8 MG in SODIUM CHLORIDE 0.9% 250 ML IV SCH ×2 (05:40→14:21)
[2018-09-18 05:44] LABS: Glucose,Whole Blood 161 mg/dL (75-99)
[2018-09-18] MEDS: INSULIN ASPART (NovoLOG) 100 UNIT/ML VIAL SQ SCH ×4 (05:46→23:35)
[2018-09-18] MEDS: IPRATROPIUM-ALBUTEROL 3 ML NEB INHALATION SCH ×4 (07:06→19:14)
[2018-09-18] MEDS: PIPERACILLIN-TAZOBACTAM 3.375 GM in SODIUM CHLORIDE 0.9% 100 ML IVPB SCH ×3 (07:48→23:23)
[2018-09-18] MEDS: HYDROCORTISONE SUCCINATE 100 MG/2 ML VIAL IV SCH ×3 (07:48→23:24)
[2018-09-18] MEDS: HEPARIN SODIUM,PORCINE 5,000 UNIT/ML 1 ML VIAL SQ SCH ×3 (07:49→23:24)
[2018-09-18] MEDS: metroNIDAZOLE-NS PMX 500 MG in SALINE 1 100ML.BAG IVPB SCH ×3 (07:49→23:23)
[2018-09-18] MEDS: CHLORHEXIDINE GLUCONATE 15 ML CUP MUCOUS MEM SCH ×2 (08:37→19:53)
[2018-09-18] MEDS: PANTOPRAZOLE 40 MG/10 ML VIAL IVP SCH (08:37)
[2018-09-18] MEDS: FLUCONAZOLE IN NACL,ISO-OSM 200 MG in SALINE 1 100ML.BAG IVPB SCH (08:37)
[2018-09-18] MEDS: HYDROmorphone 1 MG/ML 1 ML SYRINGE IVP PRN ×2 (09:16→13:08)
[2018-09-18] MEDS ORDERED: DEXTROSE 5% IN WATER 100 ML with AMIODARONE 150 MG IV ONE (10:15)
--- NOTE | 2018-09-18 10:30 | XR ---
EXAMINATION TYPE: XR chest 1V portable DATE OF EXAM: 09/18/2018 COMPARISON: Prior chest x-ray 09/17/2018 HISTORY: Intubated TECHNIQUE: Single frontal view of the chest is obtained. FINDINGS: Endotracheal tube, orogastric tube, right jugular central venous catheter are all again no obie and are overlying appropriate positions. Patient is rotated. There is no evident pneumothorax. Lisa ng volumes are low. Heart remains enlarged. Patchy bibasilar densities present, the left hemidiaphrag m is obscured. Central vascularity appears prominently. IMPRESSION: Findings similar to prior exam. Basilar atelectasis versus pneumonia, difficult to exclu de associated effusion. Expiratory rotated exam. Follow-up suggested.
[2018-09-18] MEDS ORDERED: AMIODARONE 360 MG in DEXTROSE 5% IN WATER 200 ML IV ONE ×2 (11:00)
[2018-09-18 11:47] LABS: Glucose,Whole Blood 153 mg/dL (75-99)
[2018-09-18] MEDS: SODIUM CHLORIDE 0.9% 1,000 ML IV SCH ×3 (13:11→19:52)
--- NOTE | 2018-09-18 13:41 | P.PN ---
Subjective Progress Note Date: 09/18/18 This is a 72-year-old male patient morbid obesity with known history of COPD, a sthma, proximal atrial fibrillation, diabetes mellitus, history of polycythemia with a Courtland hemoglobin syndrome, hypertension and arthritis, who has been oxygen dependent at 2 L about 2 by nasal cannula on a chronic basis. The patient presented yesterday to the emergency department with extreme abdominal pain. The patient was apparently a constipated for a week and he was doing enemas at home. He ultimately felt a pop in the lower portion of his abdomen on the day of the presentation and he came in with severe abdominal pain. He was having emesis. CAT scan of the abdomen was done in the emergency department the patient was found to have no apparent 20. The patient had abdominal distention and his abdominal size was twice the normal. His blood pressure was in the low 90s. He was tachycardic with a heart rate in the 1:30. He was given IV fluids. He was given IV Zosyn. Blood cultures were sent. He was seen by general surgery and the patient was taken to the operating room, and the patient was found to have perforated gastric ulcer, ischemic colon at the site of the splen ic flexure of bowel obstruction. The patient underwent expiratory laparotomy, lysis of adhesions, decompression of the colon and small bowel, transverse colectomy and takedown of the splenic flexure and repair of the gastric ulcer. Estimated blood loss is only 100 mL. The patient overnight was brought into the intensive care unit. The patient was resuscitated aggressively with IV fluids. He was given colloids and crystalloids. He is given 8 L of IV fluids. He was started on pressors and currently norepinephrine infusion is running at 62 g per minute. The patient was also started on physiologic dose vasopressin at 0.03 units per minute. Currently is on propofol at 14 mics for sedation. He is receiving normal saline at the rate of 150 mL an hour. Urine output is in order of 20-30 mL an hour. He is warm. His temperature was 100.5. He is on a mechanical ventilator. He is on assist-control mode of ventilation with a tidal volume of 550 at the rate of 26 with an FiO2 of 80% and a PEEP of 5. Blood gases from this morning shows a pH of 7.315 with a pCO2 of 40 and pO2 of 134. His echocardiogram from previous admissions showed an ejection fraction of 55- 60%. He had a preserved LV function. No significant valvular abnormalities. Pulmonary to pressure estimated to be 44. His cardiac rhythm is currently sinus. The patient has a CHAVEZ drain in his abdomen and this is on the right side and output is around 80-90 mL of serous material. He also has a colostomy and the site is nonfunctioning it seems to be viable at this point. Note that the patient was in the hospital and he was discharged home on 09/12/2018 after being treated for a flutter/failure with rapid ventricular response and shortness of breath and acute diastolic heart failure. Upon discharge, the patient was started on amiodarone thousand milligrams twice a day, Eliquis, Aldactone, and he was given Augmentin on outpatient basis and a prednisone burst taper. He was discharged home on a 40 mg of prednisone. On today's evaluation of 09/18/2018, the patient is postop day #2. The patient is still sedated with propofol at 35 g per KG per minute. The patient is was sedated and calm and comfortable on a mechanical ventilator essentially on the same vent setting with a tidal volume of 550 and FiO2 of 50% with a PEEP of 5 and a respiratory rate of 26. The morning blood gases showed a pH of 7.36 with a pCO2 of 33 and pO2 of 109 and this was done and FiO2 of 50%. Chest x-ray showing cardiomegaly and some mild pulmonary vascular congestion. ET tube is in a good location. The patient has no significant rest or secretions. Hemodynamically, the patient has been aggressively resuscitated IV fluids. The patient is currently on normal saline the rate of 150 mL an hour. The patient is producing more than 50 mL an hour of urine output. The patient is still requiring pressors. The patient is on physiologic dose vasopressin. The patient is also on norepinephrine infusion which is currently running at 21 g per minute. The patient is afebrile. The patient is nothing by mouth. The p atient has bowel sounds and the patient has also has a colostomy in place. NG tube is in place output has been around 200 mL over the past 8 hours. Earlier this morning, the patient was seen to be in tachycardia. A 12-lead EKG was done and the rhythm is essentially undetermined. This is most likely supraventricular rhythm, A. fib versus flutter. SCDs felt to be less likely. A. fib is favored nontender the patient has had previous history of atrial fibrillation. This has not affected the patient's overall hemodynamics and blood pressure control. The white cell count is at 9.6. Hemoglobin was 8.5. The patient continues to be in acute kidney failure. Creatinine is up to 1.80 is stable compared to yesterday. Objective - Vital Signs Vital signs: Vital Signs Temp 100.2 F H 09/18/18 08:00 Pulse 137 H 09/18/18 11:18 Resp 26 H 09/18/18 11:15 BP 107/72 09/18/18 11:15 Pulse Ox 96 09/18/18 11:15 Intake & Output 09/17/18 09/18/18 09/18/18 18:59 06:59 18:59 Intake Total 3031.204 2806.667 880 Output Total 1820 1990 1295 Balance 1211.204 816.667 -415 Weight 160 kg Intake: IV 1836 1895 780 Piperacillin-Tazobactam 3 100 .375 gm In Sodium Chloride 0.9% 100 ml @ 25 mls/hr IVPB Q8HR [facility] Rx# :[id number] Pressure Bag 36 45 30 Sodium Chloride 0.9% 1, 1800 1650 750 000 ml @ 150 mls/hr IV . Q6H40M [facility] Rx#:[id number] metroNIDAZOLE-NS PMX 500 100 mg In Saline 1 100ml.bag @ 100 mls/hr IVPB Q8HR [facility] Rx#:[id number] Intake, IV Titration 1195.204 911.667 100 Amount Norepinephrine 8 mg In 951.877 587.678 Sodium Chloride 0.9% 250 ml @ 0.05 MCG/KG/MIN 14. 35 mls/hr IV .[id number] [facility] Rx#:[id number] Propofol 1,000 mg In 243.327 323.989 100 Empty Bag 1 bag @ Titrate IV .Q0M [facility] Rx#: [id number] Output: Gastric Drainage 150 Drainage 45 20 Abdomen 45 20 Urine 1625 1989 775 Emesis 500 Other: Voiding Method Indwelling Catheter Indwelling Catheter ABP, PAP, CO, CI - Last Documented Arterial Blood Pressure 108/59 - Exam Gen. appearance the patient is obese, comfortable likely distress intubated on a mechanical ventilator orogastric and orotracheal tube are both in place Head exam was generally normal. There was no scleral icterus or corneal arcus. Mucous membranes were moist. Neck was supple and without jugular venous distension, thyromegaly, or carotid bruits. Carotids were easily palpable bilaterally. There was no adenopathy. Lungs sounds are diminished bilaterally along with scattered rhonchi and scattered expiratory wheezes on the lung lopez bilaterally. Heart sounds are tachycardic, positive S1-S2, regular, no cervical murmurs appreciated Abdomen is distended soft. There is minimal direct tenderness. There is a colostomy in the left upper quadrant area. The colostomy site seems to be viable with healthy tissue and that is no output in the colostomy bag. There is a large mid abdominal incision which is dry clean and intact. Bowel sounds are absent. There is no abdominal distention. There is also a CHAVEZ drain with serous material collecting in the container. Extremities show diminished pulses bilaterally especially lower extremities. No cyanosis. No clubbing. Examination of the skin revealed no evidence of significant rashes, suspicious appearing nevi or other concerning lesions. Neurologically sedated and the patient grimaces to painful stimulation in all 4 extremities - Labs CBC & Chem 7: 09/18/18 04:18 09/18/18 04:18 Labs: Abnormal Lab Results - Last 24 Hours (Table) 09/17/18 09/17/18 09/18/18 Range/Units 18:01 23:23 04:18 Hgb 8.5 L (13.0-17.5) gm/dL Hct 33.2 L (39.0-53.0) % MCV 73.5 L (80.0-100.0) fL MCH 18.8 L (25.0-35.0) pg MCHC 25.6 L (31.0-37.0) g/dL RDW 19.2 H (11.5-15.5) % Neutrophils # 8.4 H (1.3-7.7) k/uL Lymphocytes # 0.5 L (1.0-4.8) k/uL ABG pO2 (83-108) mmHg ABG HCO3 (21-25) mmol/L ABG O2 Saturation (94-97) % Sodium (137-145) mmol/L Chloride (98-107) mmol/L Carbon Dioxide (22-30) mmol/L BUN (9-20) mg/dL Creatinine (0.66-1.25) mg/dL Glucose (74-99) mg/dL POC Glucose (mg/dL) 161 H 141 H (75-99) mg/dL Calcium (8.4-10.2) mg/dL Total Protein (6.3-8.2) g/dL Albumin (3.5-5.0) g/dL 09/18/18 09/18/18 09/18/18 Range/Units 04:18 04:39 05:43 Hgb (13.0-17.5) gm/dL Hct (39.0-53.0) % MCV (80.0-100.0) fL MCH (25.0-35.0) pg MCHC (31.0-37.0) g/dL RDW (11.5-15.5) % Neutrophils # (1.3-7.7) k/uL Lymphocytes # (1.0-4.8) k/uL ABG pO2 109 H (83-108) mmHg ABG HCO3 19 L (21-25) mmol/L ABG O2 Saturation 99.4 H (94-97) % Sodium 136 L (137-145) mmol/L Chloride 108 H (98-107) mmol/L Carbon Dioxide 18 L (22-30) mmol/L BUN 39 H (9-20) mg/dL Creatinine 1.81 H (0.66-1.25) mg/dL Glucose 141 H (74-99) mg/dL POC Glucose (mg/dL) 161 H (75-99) mg/dL Calcium 7.5 L (8.4-10.2) mg/dL Total Protein 4.6 L (6.3-8.2) g/dL Albumin 2.4 L (3.5-5.0) g/dL 09/18/18 Range/Units 11:45 Hgb (13.0-17.5) gm/dL Hct (39.0-53.0) % MCV (80.0-100.0) fL MCH (25.0-35.0) pg MCHC (31.0-37.0) g/dL RDW (11.5-15.5) % Neutrophils # (1.3-7.7) k/uL Lymphocytes # (1.0-4.8) k/uL ABG pO2 (83-108) mmHg ABG HCO3 (21-25) mmol/L ABG O2 Saturation (94-97) % Sodium (137-145) mmol/L Chloride (98-107) mmol/L Carbon Dioxide (22-30) mmol/L BUN (9-20) mg/dL Creatinine (0.66-1.25) mg/dL Glucose (74-99) mg/dL POC Glucose (mg/dL) 153 H (75-99) mg/dL Calcium (8.4-10.2) mg/dL Total Protein (6.3-8.2) g/dL Albumin (3.5-5.0) g/dL Microbiology - Last 24 Hours (Table) 09/17/18 01:45 Urine Culture - Final Urine,Voided 09/16/18 14:25 Blood Culture - Preliminary Blood No Growth after 24 hours Assessment and Plan Plan: 1 perforated gastric ulcer/ischemic colon at the level of splenic fracture with bowel obstruction. The patient is post expiratory laparotomy, lysis of adhesions, repair of a gastric ulcer, transfers colectomy with takedown of splenic flexure and decompression of the colon and small bowel. The patient is postop day #2. 2 shock with profound hypotension, and the patient has been aggressively resuscitated IV fluids and pressors. Currently the patient is on a combination of IV fluids, pressors with a combination of norepinephrine and vasopressin and antibiotics. Remains quite hypotensive with high-dose pressors. Consider septic shock secondary to bowel perforation and gastric perforation. 3 acute hypoxic respiratory failure secondary to above, currently intubated on a mechanical ventilator 4 acute kidney injury secondary to above, the patient is producing excellent urine output at this point in time. 5 mild lactic acidosis lactic acid level is down to 2.8 6 history of paroxysmal atrial fibrillation with a recent admission to the hospital because of A. fib/flutter with RVR current rhythm is sinus. The patient was taken off anticoagulation and the patient was given Kcentra be operatively 7 COPD 8 bronchial asthma 9 CHF with diastolic heart failure 10 obstructive sleep apnea noncompliant with CPAP therapy 11 recent hospitalization for select of the abdominal wall, was receiving Augmentin an outpatient basis 12 diabetes mellitus type 2 13 chronic hypoxic respiratory failure with an oxygen at 2 L per minute nasal c annula on outpatient basis 14 noncompliance with medication and medical treatment in general 15 tachycardia, likely A. fib/flutter. Plan Continue vent support. Wean off pressors as tolerated. Hemodynamically slightly improved compared to yesterday as the pressor requirements improved compared to yesterday. The patient is nothing by mouth. The patient is sedated. The patient is on IV fluids and pressors. The patient is producing excellent urine output. The patient will be kept on same antibiotic coverage. The patient will be started on amiodarone. He'll be given 150 mg bolus and lo aded per protocol. We'll monitor the cardiac rhythm. We'll continue to follow make further recommendations based on progress. General surgeries on the case. This is a critically care evaluation that was done more than 30 minutes. Time with Patient: Greater than 30
--- NOTE | 2018-09-18 14:30 | P.PN ---
Subjective Progress Note Date: 09/18/18 CHIEF COMPLAINT: abdominal pain HISTORY OF PRESENT ILLNESS: patient underwent exploratory laparotomy, lysis of adhesions, decompression of colon and small bowel, transverse colectomy with takedown of splenic flexure, and repair of gastric ulcer yesterday with Dr. De Leon secondary to pneumoperitoneum, perforated gastric ulcer, ischemic colon at splenic flexure, and bowel obstruction. POD #2. The patient remains intubated on mechanical ventilation in the intensive care unit. Patient remains on vasopressors, however dose is decreased from yesterday. Ostomy remains without stool. PHYSICAL EXAM: VITAL SIGNS: Reviewed. GENERAL: Well-developed in acute distress. Remains on sedation on mechanical ventilation. HEENT: ET tube noted. NG to LIS. No sclera icterus. Extraocular movements grossly intact. Dry buccal mucosa with evidence of old blood. Head is atraumatic, normocephalic. ABDOMEN: Abdomen distended. Dressing CDI. CHAVEZ drain with serosanguineous drainage. Left-sided colostomy currently nonfunctioning without stool output. Draining small amount of serosanguineous drainage. Ostomy appears viable. NEUROLOGIC: Patient sedated on mechanical ventilation ASSESSMENT: 1. Abdominal pain 2. Pneumoperitoneum 3. S/P exploratory laparotomy, lysis of adhesions, decompression of colon and small bowel, transverse colectomy with takedown of splenic flexure, and repair of gastric ulcer secondary to pneumoperitoneum, perforated gastric ulcer, ischemic colon at splenic flexure, and bowel obstruction 4. Septic shock, present on admission secondary to above 5. History of atrial fibrillation, on long-term anticoagulation with Eliquis 6. History of bowel obstruction 7. History of laparoscopic Bruce fundoplication 8. History of hiatal hernia repair with mesh PLAN: 1. Continue ventilator management per Dr. Red 2. Wean vasopressors as tolerated 3. Continue antibiotics. Dr. Benedict consulted. 4. Continue to hold Eliquis 5. Monitor labs 6. Daily wound changes with wet to dry packing. Per Dr. Montoya Ok for wound vac when Dr. Benedict feels appropriate. 7. Consult ostomy resource RN 8. Consult dietary to begin TPN. Nurse practitioner note has been reviewed by physician. Signing provider agrees with the documented findings, assessment, and plan of care. Objective - Vital Signs Vital signs: Vital Signs Temp 99.5 F 09/18/18 12:00 Pulse 133 H 07/25/19 13:30 Resp 26 H 09/18/18 13:30 BP 116/70 09/18/18 13:30 Pulse Ox 95 09/18/18 13:30 Intake & Output 09/17/18 09/18/18 09/18/18 18:59 06:59 18:59 Intake Total 3031.204 2806.667 1285.874 Output Total 0 1989 1595 Balance 1211.204 816.667 -309.126 Weight 160 kg Intake: IV 1836 1895 1092 Piperacillin-Tazobactam 3 100 .375 gm In Sodium Chloride 0.9% 100 ml @ 25 mls/hr IVPB Q8HR [facility] Rx# :[id number] Pressure Bag 36 45 42 Sodium Chloride 0.9% 1, 1800 1650 1050 000 ml @ 150 mls/hr IV . Q6H40M [facility] Rx#:[id number] metroNIDAZOLE-NS PMX 500 100 mg In Saline 1 100ml.bag @ 100 mls/hr IVPB Q8HR [facility] Rx#:[id number] Intake, IV Titration 1195.204 911.667 193.874 Amount Norepinephrine 8 mg In 951.877 587.678 Sodium Chloride 0.9% 250 ml @ 0.05 MCG/KG/MIN 14. 35 mls/hr IV .[id number] [facility] Rx#:[id number] Propofol 1,000 mg In 243.327 323.989 193.874 Empty Bag 1 bag @ Titrate IV .Q0M [facility] Rx#: [id number] Output: Gastric Drainage 150 Drainage 45 20 Abdomen 45 20 Urine 1625 1989 1075 Emesis 500 Other: Voiding Method Indwelling Catheter Indwelling Catheter ABP, PAP, CO, CI - Last Documented Arterial Blood Pressure 112/60 - Labs CBC & Chem 7: 09/18/18 04:18 09/18/18 04:18 Labs: Abnormal Lab Results - Last 24 Hours (Table) 09/17/18 09/17/18 09/18/18 Range/Units 18:01 23:23 04:18 Hgb 8.5 L (13.0-17.5) gm/dL Hct 33.2 L (39.0-53.0) % MCV 73.5 L (80.0-100.0) fL MCH 18.8 L (25.0-35.0) pg MCHC 25.6 L (31.0-37.0) g/dL RDW 19.2 H (11.5-15.5) % Neutrophils # 8.4 H (1.3-7.7) k/uL Lymphocytes # 0.5 L (1.0-4.8) k/uL ABG pO2 (83-108) mmHg ABG HCO3 (21-25) mmol/L ABG O2 Saturation (94-97) % Sodium (137-145) mmol/L Chloride (98-107) mmol/L Carbon Dioxide (22-30) mmol/L BUN (9-20) mg/dL Creatinine (0.66-1.25) mg/dL Glucose (74-99) mg/dL POC Glucose (mg/dL) 161 H 141 H (75-99) mg/dL Calcium (8.4-10.2) mg/dL Total Protein (6.3-8.2) g/dL Albumin (3.5-5.0) g/dL 09/18/18 09/18/18 09/18/18 Range/Units 04:18 04:39 05:43 Hgb (13.0-17.5) gm/dL Hct (39.0-53.0) % MCV (80.0-100.0) fL MCH (25.0-35.0) pg MCHC (31.0-37.0) g/dL RDW (11.5-15.5) % Neutrophils # (1.3-7.7) k/uL Lymphocytes # (1.0-4.8) k/uL ABG pO2 109 H (83-108) mmHg ABG HCO3 19 L (21-25) mmol/L ABG O2 Saturation 99.4 H (94-97) % Sodium 136 L (137-145) mmol/L Chloride 108 H (98-107) mmol/L Carbon Dioxide 18 L (22-30) mmol/L BUN 39 H (9-20) mg/dL Creatinine 1.81 H (0.66-1.25) mg/dL Glucose 141 H (74-99) mg/dL POC Glucose (mg/dL) 161 H (75-99) mg/dL Calcium 7.5 L (8.4-10.2) mg/dL Total Protein 4.6 L (6.3-8.2) g/dL Albumin 2.4 L (3.5-5.0) g/dL 09/18/18 Range/Units 11:45 Hgb (13.0-17.5) gm/dL Hct (39.0-53.0) % MCV (80.0-100.0) fL MCH (25.0-35.0) pg MCHC (31.0-37.0) g/dL RDW (11.5-15.5) % Neutrophils # (1.3-7.7) k/uL Lymphocytes # (1.0-4.8) k/uL ABG pO2 (83-108) mmHg ABG HCO3 (21-25) mmol/L ABG O2 Saturation (94-97) % Sodium (137-145) mmol/L Chloride (98-107) mmol/L Carbon Dioxide (22-30) mmol/L BUN (9-20) mg/dL Creatinine (0.66-1.25) mg/dL Glucose (74-99) mg/dL POC Glucose (mg/dL) 153 H (75-99) mg/dL Calcium (8.4-10.2) mg/dL Total Protein (6.3-8.2) g/dL Albumin (3.5-5.0) g/dL Microbiology - Last 24 Hours (Table) 09/17/18 01:45 Urine Culture - Final Urine,Voided 09/16/18 14:25 Blood Culture - Preliminary Blood No Growth after 24 hours
--- NOTE | 2018-09-18 15:06 | P.PN ---
Subjective Progress Note Date: 09/18/18 This is a 72-year-old male patient of Dr. Cevallos with past history of chronic hypoxic respiratory failure on home O2 obstructive sleep apnea on CPAP, paroxysmal atrial fibrillation, chronic diastolic heart failure, severe COPD, morbid obesity with BMI of 47, hypertension hypertensive cardiovascular disease, mild intermittent asthma, hyperlipidemia, gastroesophageal reflux disease, diabetes mellitus type 2, cellulitis of the abdominal wall. Patient was recently hospitalized and discharged home on September 12 and treated for acute diastolic heart failure, atrial flutter/atrial fibrillation with rapid ventricular response status post MIKE which found a small atrial appendage thrombus. The patient was stabilized and discharged home in stable condition and had been started on amiodarone, eliquis, Aldactone, prednisone and Augmentin. Patient presented to [facility] emergency center for evaluation. He was afebrile, heart rate 130s, blood pressure 119/79, pulse ox 95%. White count was 5.9, hemoglobin 10.6, platelet count 4-72. Sodium 133, potassium 5.4, chloride 96, CO2 20, BUN 36 and creatinine 1.6, blood sugar 178. CAT scan of the abdomen and pelvis revealed pneumoperitoneum. Bowel distention. Bowel ischemia not excluded. No clear obstruction. Findings may be due to ileus. Patient was provided IV fluids, pain medication and Zosyn patient was seen by Dr. De Leon in the emergency center and taken to the OR found to have a perforated gastric ulcer, ischemic colon at the site of splenic flexure of the bowel obstruction. Patient underwent exploratory laparotomy, lysis of adhesions, decompression of the colon and small bowel, transverse colectomy and takedown of splenic flexure and repair of a gastric ulcer. Patient was then transferred to the intensive care unit and followed by Dr. Red. He is status post greater than 8 L of IV fluid and on norepinephrine and subsequent started on vasopressin. Urine output has been marginal patient remains intubated and on mechanical ventilation with tidal volume 550, FiO2 of 50% and PEEP of 5. The patient is on sedation. 09/18: Patient remains in intensive care unit intubated and on mechanical vent ilation with tidal volume 550, FiO2 50, PEEP 5. NG tube with black drainage. He is on 22 mics of levo fed and 0.3 vasopressin. Patient was started on amiodarone due to continued A. fib with RVR. Heart rate is in the 140s, blood pressure systolic 99. A.m. lab work white count 9.6, hemoglobin 8.5, platelet count 368. Sodium 136, potassium 4.9, chloride 108, CO2 18, BUN 39 creatinine 1.81. Blood sugars are running between 141 and 161. Urine culture is in progress and blood culture is no growth at [address] Benedict is recommended continuing Zosyn and Diflucan. Son is at bedside and all questions have been answered. Objective - Vital Signs Vital signs: Vital Signs Temp 99.3 F 09/18/18 04:00 Pulse 141 H 09/18/18 07:16 Resp 26 H 09/18/18 07:00 BP 91/63 09/18/18 05:15 Pulse Ox 98 09/18/18 07:00 Intake & Output 09/17/18 09/18/18 09/18/18 18:59 06:59 18:59 Intake Total 3031.204 2806.667 156 Output Total 1820 1990 670 Balance 1211.204 816.667 -514 Weight 160 kg Intake: IV 1836 1895 156 Piperacillin-Tazobactam 3 100 .375 gm In Sodium Chloride 0.9% 100 ml @ 25 mls/hr IVPB Q8HR [facility] Rx# :[id number] Pressure Bag 36 45 6 Sodium Chloride 0.9% 1, 1800 1650 150 000 ml @ 150 mls/hr IV . Q6H40M [facility] Rx#:[id number] metroNIDAZOLE-NS PMX 500 100 mg In Saline 1 100ml.bag @ 100 mls/hr IVPB Q8HR [facility] Rx#:[id number] Intake, IV Titration 1195.204 911.667 Amount Norepinephrine 8 mg In 951.877 587.678 Sodium Chloride 0.9% 250 ml @ 0.05 MCG/KG/MIN 14. 35 mls/hr IV .[id number] [facility] Rx#:[id number] Propofol 1,000 mg In 243.327 323.989 Empty Bag 1 bag @ Titrate IV .Q0M [facility] Rx#: [id number] Output: Gastric Drainage 150 Drainage 45 20 Abdomen 45 20 Urine 1625 1989 150 Emesis 500 Other: Voiding Method Indwelling Catheter Indwelling Catheter ABP, PAP, CO, CI - Last Documented Arterial Blood Pressure 99/50 - Exam Review of Systems ROS unobtainable: due to endotracheal tube Gen: This is a 72-year-old morbidly obese male. He is in the intensive care unit. Patient is intubated and on mechanical ventilation. HEENT: Head is atraumatic, normocephalic. Pupils equal, round. Sclerae is anicteric. NG tube in place draining dark liquid. Oral tracheal tube in place. Mucous membranes of the mouth are moist. NECK: Supple. No JVD. No lymphadenopathy. No thyromegaly. LUNGS: Diminished bilaterally with scattered rhonchi and expiratory wheeze. HEART: Irregular rate and rhythm. Systolic murmur. campus monitor atrial fibrillation with RVR. ABDOMEN: Soft. Large distended. No active bowel sounds are present. Colostomy in the left upper quadrant with what appears to be dried blood at the stoma. No output in colostomy bag. There is a large mid abdominal incision with dressing that is dry and intact. No breakthrough bleeding or drainage. CHAVEZ drain with serous material. Foster catheter draining clear urine. EXTREMITIES: No pedal edema. No calf tenderness. NEUROLOGICAL: Patient is sedated. - Labs CBC & Chem 7: 09/18/18 04:18 09/18/18 04:18 Labs: Abnormal Lab Results - Last 24 Hours (Table) 09/17/18 09/17/18 09/17/18 Range/Units 10:24 12:11 18:01 Hgb (13.0-17.5) gm/dL Hct (39.0-53.0) % MCV (80.0-100.0) fL MCH (25.0-35.0) pg MCHC (31.0-37.0) g/dL RDW (11.5-15.5) % Neutrophils # (1.3-7.7) k/uL Lymphocytes # (1.0-4.8) k/uL ABG pO2 (83-108) mmHg ABG HCO3 (21-25) mmol/L ABG O2 Saturation (94-97) % Sodium (137-145) mmol/L Chloride (98-107) mmol/L Carbon Dioxide (22-30) mmol/L BUN (9-20) mg/dL Creatinine (0.66-1.25) mg/dL Glucose (74-99) mg/dL POC Glucose (mg/dL) 130 H 149 H 161 H (75-99) mg/dL Calcium (8.4-10.2) mg/dL Total Protein (6.3-8.2) g/dL Albumin (3.5-5.0) g/dL 09/17/18 09/18/18 09/18/18 Range/Units 23:23 04:18 04:18 Hgb 8.5 L (13.0-17.5) gm/dL Hct 33.2 L (39.0-53.0) % MCV 73.5 L (80.0-100.0) fL MCH 18.8 L (25.0-35.0) pg MCHC 25.6 L (31.0-37.0) g/dL RDW 19.2 H (11.5-15.5) % Neutrophils # 8.4 H (1.3-7.7) k/uL Lymphocytes # 0.5 L (1.0-4.8) k/uL ABG pO2 (83-108) mmHg ABG HCO3 (21-25) mmol/L ABG O2 Saturation (94-97) % Sodium 136 L (137-145) mmol/L Chloride 108 H (98-107) mmol/L Carbon Dioxide 18 L (22-30) mmol/L BUN 39 H (9-20) mg/dL Creatinine 1.81 H (0.66-1.25) mg/dL Glucose 141 H (74-99) mg/dL POC Glucose (mg/dL) 141 H (75-99) mg/dL Calcium 7.5 L (8.4-10.2) mg/dL Total Protein 4.6 L (6.3-8.2) g/dL Albumin 2.4 L (3.5-5.0) g/dL 09/18/18 09/18/18 Range/Units 04:39 05:43 Hgb (13.0-17.5) gm/dL Hct (39.0-53.0) % MCV (80.0-100.0) fL MCH (25.0-35.0) pg MCHC (31.0-37.0) g/dL RDW (11.5-15.5) % Neutrophils # (1.3-7.7) k/uL Lymphocytes # (1.0-4.8) k/uL ABG pO2 109 H (83-108) mmHg ABG HCO3 19 L (21-25) mmol/L ABG O2 Saturation 99.4 H (94-97) % Sodium (137-145) mmol/L Chloride (98-107) mmol/L Carbon Dioxide (22-30) mmol/L BUN (9-20) mg/dL Creatinine (0.66-1.25) mg/dL Glucose (74-99) mg/dL POC Glucose (mg/dL) 161 H (75-99) mg/dL Calcium (8.4-10.2) mg/dL Total Protein (6.3-8.2) g/dL Albumin (3.5-5.0) g/dL Microbiology - Last 24 Hours (Table) 09/16/18 14:25 Blood Culture - Preliminary Blood No Growth after 24 hours 09/17/18 01:45 Urine Culture - Preliminary Urine,Voided Assessment and Plan Plan: 1. Abdominal pain secondary to perforated gastric ulcer, ischemic colon at the splenic flexure with bowel obstruction status post exploratory laparotomy, lysis of adhesions, repair of gastric ulcer, transverse colectomy and takedown of the splenic flexure. Continue fluconazole, Flagyl IV, Zosyn IV. Dr. Benedict consult appreciated. 2. Hypovolemic shock status post IV fluid resuscitation and vasopressors. Patient is currently on norepinephrine and vasopressin. 3. Acute on chronic hypoxic respiratory failure secondary to above. Patient is currently intubated and on mechanical ventilation. Patient is managed by Dr. Red. 4. Acute kidney injury secondary to shock. Continue IV fluids and vasopressors, continue to monitor closely 5. Lactic acidosis. 6. Paroxysmal atrial fibrillation with A. fib RVR. Eliquis is on hold. Patient is status post entra for reversal of eliquis. 7. Chronic diastolic heart failure. 8. Severe COPD. 9. Obstructive sleep apnea with CPAP, noncompliance. 10. Mild intermittent asthma, stable. 11. Hyperlipidemia. 12. Gastroesophageal reflux disease and GI prophylaxis. Continue Protonix 40 mg IV daily. 13. Diabetes mellitus type 2. Continue NovoLog scale every 6 hours. Hold metformin and Januvia. Discharge plan: To be determined. Most likely subacute rehab. Impression and plan of care have been directed as dictated by the signing physician. Loreta Medellin nurse practitioner acting as scribe for signing physician.
[2018-09-18 16:48] LABS: Ionized Calcium 4.7 mg/dL (4.5-5.3)
[2018-09-18 16:53] LABS: Magnesium 2.3 mg/dL (1.6-2.3); Phosphorus 4.3 mg/dL (2.5-4.5)
[2018-09-18] MEDS: AMIODARONE 300 MG in DEXTROSE 5% IN WATER 250 ML IV SCH ×2 (17:28)
[2018-09-18] MEDS ORDERED: MVI, ADULT NO.4 WITH VIT K 10 ML, TRACE (CONC-1ML/DOSE) 1 ML in AMINO ACID 5%-D15W+LYTE... IV SCH ×3 (18:00)
[2018-09-18 18:25] LABS: Glucose,Whole Blood 159 mg/dL (75-99)
--- NOTE | 2018-09-18 20:40 | PN ---
PROGRESS NOTE DATE OF SERVICE: 09/18/2018. REASON FOR FOLLOWUP: Abdominal sepsis. INTERVAL HISTORY: The patient is currently afebrile. The patient is still requiring pressor support to control blood pressure. However, overall pressor support has decreased. The patient remains to be intubated on the vent. FiO2 is currently stable at 50%. Remains to be sedated. PHYSICAL EXAMINATION: Blood pressure 108/57, pulse of 140, temperature 98, T-max 100.2. He is 99% on 50% FiO2. General description is an elderly male lying in bed in no distress. HEENT: Shows pallor. No scleral icterus. The patient is orally intubated. LUNGS: Unlabored breathing. Decreased breath sounds in the bases. HEART: S1, S2. Regular rate and rhythm. ABDOMEN: Soft, remains minimally distended. No output in the colostomy bag. EXTREMITIES: No edema of the feet. LABS: Hemoglobin 8.5, white count 9.6 with a BUN of 39, creatinine is 1.81. Blood culture has been negative. No abdominal cultures were done. DIAGNOSTIC IMPRESSION AND PLAN: Patient with abdominal sepsis. This patient currently broadly covered with Zosyn and Diflucan. Monitor clinical course closely and continue supportive care. MMODL / IJN: [id number] / LINDA
[2018-09-18 23:28] LABS: Glucose,Whole Blood 163 mg/dL (75-99)
[2018-09-18 23:50] LABS: Glucose,Whole Blood 160 mg/dL (75-99)
[2018-09-19] MEDS: PROPOFOL 1,000 MG in EMPTY BAG 1 BAG IV SCH ×10 (00:26→23:02)
[2018-09-19] MEDS: AMIODARONE 300 MG in DEXTROSE 5% IN WATER 250 ML IV SCH ×2 (03:11)
[2018-09-19] MEDS: SODIUM CHLORIDE 0.9% 50 ML with VASOPRESSIN 20 UNIT IVPB SCH ×2 (03:12)
[2018-09-19] MEDS: SODIUM CHLORIDE 0.9% 1,000 ML IV SCH ×3 (03:12→10:04)
[2018-09-19 04:45] LABS: Anisocytosis Slight; HCT 30.3 % (39.0-53.0); HGB 7.8 gm/dL (13.0-17.5); Hypochromasia Marked; MCHC 25.8 g/dL (31.0-37.0); MCV 73.8 fL (80.0-100.0); Microcytosis Moderate; Platelet Count 341 k/uL (150-450); Poikilocytosis Moderate; RBC 4.11 m/uL (4.30-5.90)
[2018-09-19 04:49] LABS: Ionized Calcium 4.8 mg/dL (4.5-5.3)
[2018-09-19 04:57] LABS: Albumin 2.3 g/dL (3.5-5.0); Calcium 7.5 mg/dL (8.4-10.2); Magnesium 2.4 mg/dL (1.6-2.3); Phosphorus 3.7 mg/dL (2.5-4.5); Potassium 4.3 mmol/L (3.5-5.1); Total Bilirubin 0.6 mg/dL (0.2-1.3); Total Protein 4.7 g/dL (6.3-8.2)
[2018-09-19 04:58] LABS: ABG Base Excess -5.7 mmol/L; ABG HCO3 20 mmol/L (21-25); ABG PCO2 35 mmHg (35-45); ABG PH 7.36 (7.35-7.45); ABG PO2 121 mmHg (83-108); ABG TCO2 21 mmol/L (19-24); Allen Test Performed? Yes
[2018-09-19 05:52] LABS: Glucose,Whole Blood 181 mg/dL (75-99)
[2018-09-19] MEDS: INSULIN ASPART (NovoLOG) 100 UNIT/ML VIAL SQ SCH ×4 (06:06→23:13)
[2018-09-19] MEDS: IPRATROPIUM-ALBUTEROL 3 ML NEB INHALATION SCH ×5 (07:10→23:13)
[2018-09-19 07:20] LABS: Band Neutrophils % 16 %; Lymphocytes # (M) 0.69 k/uL (1.0-4.8); Monocytes # (M) 0.43 k/uL (0-1.0); Neutrophils % (M) 72 %; Nucleated Red Blood Cells 3 /100 WBC (0-0); Polychromasia Present; Total Cells Counted 200; WBC 8.6 k/uL (3.8-10.6)
--- NOTE | 2018-09-19 08:19 | XR ---
EXAMINATION TYPE: XR chest 1V portable DATE OF EXAM: 09/19/2018 COMPARISON: Prior chest x-ray 09/18/2018 HISTORY: Intubated TECHNIQUE: Single frontal view of the chest is obtained. FINDINGS: Patient is rotated. Endotracheal tube, right jugular central venous catheter, orogastric tu be are stable and overlying appropriate positions. Bibasilar increased density persists, the hemidiap hragms are obscured. The heart is enlarged. There may be increasing density within the left chest. Ce ntral vascularity is prominent. IMPRESSION: Correlate for congestive heart failure or volume overload. There may be increasing pleur al effusions. Pneumonia not excluded.
[2018-09-19] MEDS: HYDROCORTISONE SUCCINATE 100 MG/2 ML VIAL IV SCH ×3 (08:32→23:08)
[2018-09-19] MEDS: PIPERACILLIN-TAZOBACTAM 3.375 GM in SODIUM CHLORIDE 0.9% 100 ML IVPB SCH ×3 (08:32→23:14)
[2018-09-19] MEDS: metroNIDAZOLE-NS PMX 500 MG in SALINE 1 100ML.BAG IVPB SCH ×3 (08:32→23:14)
[2018-09-19] MEDS: HEPARIN SODIUM,PORCINE 5,000 UNIT/ML 1 ML VIAL SQ SCH (08:33)
[2018-09-19] MEDS: CHLORHEXIDINE GLUCONATE 15 ML CUP MUCOUS MEM SCH ×2 (08:33→20:29)
[2018-09-19] MEDS: PANTOPRAZOLE 40 MG/10 ML VIAL IVP SCH (08:33)
--- NOTE | 2018-09-19 09:34 | P.PN ---
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 The patient presented yesterday to the emergency department with extreme abdominal pain. The patient was apparently a constipated for a week and he was doing enemas at home. He ultimately felt a pop in the lower portion of his abdomen on the day of the presentation and he came in with severe abdominal pain. He was having emesis. CAT scan of the abdomen was done in the emergency department the patient was found to have no apparent 20. The patient had abdominal distention and his abdominal size was twice the normal. His blood pressure was in the low 90s. He was tachycardic with a heart rate in the 1:30. He was given IV fluids. He was given IV Zosyn. Blood cultures were sent. He was seen by general surgery and the patient was taken to the operating room, and the patient was found to have perforated gastric ulcer, ischemic colon at the site of the splen ic flexure of bowel obstruction. The patient underwent expiratory laparotomy, lysis of adhesions, decompression of the colon and small bowel, transverse colectomy and takedown of the splenic flexure and repair of the gastric ulcer. Estimated blood loss is only 100 mL. The patient overnight was brought into the intensive care unit. The patient was resuscitated aggressively with IV fluids. He was given colloids and crystalloids. He is given 8 L of IV fluids. He was started on pressors and currently norepinephrine infusion is running at 62 g per minute. The patient was also started on physiologic dose vasopressin at 0.03 units per minute. Currently is on propofol at 14 mics for sedation. He is receiving normal saline at the rate of 150 mL an hour. Urine output is in order of 20-30 mL an hour. He is warm. His temperature was 100.5. He is on a mechanical ventilator. He is on assist-control mode of ventilation with a tidal volume of 550 at the rate of 26 with an FiO2 of 80% and a PEEP of 5. Blood gases from this morning shows a pH of 7.315 with a pCO2 of 40 and pO2 of 134. His echocardiogram from previous admissions showed an ejection fraction of 55- 60%. He had a preserved LV function. No significant valvular abnormalities. Pulmonary to pressure estimated to be 44. His cardiac rhythm is currently sinus. The patient has a CHAVEZ drain in his abdomen and this is on the right side and output is around 80-90 mL of serous material. He also has a colostomy and the site is nonfunctioning it seems to be viable at this point. Note that the patient was in the hospital and he was discharged home on 09/12/2018 after being treated for a flutter/failure with rapid ventricular response and shortness of breath and acute diastolic heart failure. Upon discharge, the patient was started on amiodarone thousand milligrams twice a day, Eliquis, Aldactone, and he was given Augmentin on outpatient basis and a prednisone burst taper. He was discharged home on a 40 mg of prednisone. On today's evaluation of 09/18/2018, the patient is postop day #2. The patient is still sedated with propofol at 35 g per KG per minute. The patient is was sedated and calm and comfortable on a mechanical ventilator essentially on the same vent setting with a tidal volume of 550 and FiO2 of 50% with a PEEP of 5 and a respiratory rate of 26. The morning blood gases showed a pH of 7.36 with a pCO2 of 33 and pO2 of 109 and this was done and FiO2 of 50%. Chest x-ray showing cardiomegaly and some mild pulmonary vascular congestion. ET tube is in a good location. The patient has no significant rest or secretions. Hemodynamically, the patient has been aggressively resuscitated IV fluids. The patient is currently on normal saline the rate of 150 mL an hour. The patient is producing more than 50 mL an hour of urine output. The patient is still requiring pressors. The patient is on physiologic dose vasopressin. The patient is also on norepinephrine infusion which is currently running at 21 g per minute. The patient is afebrile. The patient is nothing by mouth. The p atient has bowel sounds and the patient has also has a colostomy in place. NG tube is in place output has been around 200 mL over the past 8 hours. Earlier this morning, the patient was seen to be in tachycardia. A 12-lead EKG was done and the rhythm is essentially undetermined. This is most likely supraventricular rhythm, A. fib versus flutter. SCDs felt to be less likely. A. fib is favored nontender the patient has had previous history of atrial fibrillation. This has not affected the patient's overall hemodynamics and blood pressure control. The white cell count is at 9.6. Hemoglobin was 8.5. The patient continues to be in acute kidney failure. Creatinine is up to 1.80 is stable compared to yesterday. On today's evaluation of 09/19/2018 the patient is postop day #3. On today's evaluation that has been further progress and the patient's blood pressure. Currently is only on 5 mics of norepinephrine infusion the patient is also on vasopressin physiologic dose. There has been considerable improvement in the pressor requirements over the past 24-48 hours. He is still producing more than 100 mL of urine output. Afebrile. Still intubated on a mechanical ventilator. Vent settings are essentially unchanged compared to yesterday with a tidal volume of 550 FiO2 of 50% with a PEEP of 5 and the respiratory rate of 26. Blood gases from today showed a pH of 7.36 with a pCO2 of 35 and pO2 of 121 and this was done and FiO2 of 50%. The patient is was arrested on propofol which is running at 40 mics. Chest x-ray from today shows bilateral pleural effusion and ET tube is in a good location. The patient has positive bowel sounds. The patient is producing some stool activity in his colostomy bag. The CHAVEZ drain output is minimal. NG tube output is minimal. The patient is still on broad- spectrum antibiotic coverage. Cultures from the abdominal wound have been all negative. White cell count is not elevated. Hemoglobin stable at 7.8. Family is at the bedside. As far as atrial fibrillation, the patient was bolused with amiodarone and following that the patient was maintained at a lower heart rate yet still in atrial fibrillation. No anticoagulants for now. The function is improving and the creatinine is down to 1.2. Objective - Vital Signs Vital signs: Vital Signs Temp 97.4 F L 09/19/18 07:30 Pulse 98 09/19/18 09:00 Resp 26 H 09/19/18 09:00 BP 94/68 09/18/18 22:30 Pulse Ox 100 09/19/18 09:00 Intake & Output 09/18/18 09/19/18 09/19/18 18:59 06:59 18:59 Intake Total 2582.042 3327.915 614.602 Output Total 2400 1960 275 Balance 235.462 0241.915 339.602 Weight 160 kg 163.9 kg Intake: IV 1872 2558 491 Mvi, Adult No.4 with Vit 360 60 K 10 ml Trace (Conc-1Ml/ Dose) 1 ml In Amino Acid 5%-D15w+Lytes*E* 1,000 ml @ 30 mls/hr IV .Q24H [facility] Rx#:[id number] Piperacillin-Tazobactam 3 100 25 .375 gm In Sodium Chloride 0.9% 100 ml @ 25 mls/hr IVPB Q8HR [facility] Rx# :[id number] Pressure Bag 72 48 6 Sodium Chloride 0.9% 1, 1800 1950 300 000 ml @ 150 mls/hr IV . Q6H40M [facility] Rx#:[id number] metroNIDAZOLE-NS PMX 500 100 100 mg In Saline 1 100ml.bag @ 100 mls/hr IVPB Q8HR [facility] Rx#:[id number] Intake, IV Titration 710.042 769.915 123.602 Amount Amiodarone 300 mg In 242.917 Dextrose 5% in Water 250 ml @ 0.5 MG/MIN 25 mls/hr IV .Q10H [facility] Rx#: [id number] Norepinephrine 8 mg In 316.168 146.998 Sodium Chloride 0.9% 250 ml @ 0.05 MCG/KG/MIN 14. 35 mls/hr IV .[id number] [facility] Rx#:[id number] Propofol 1,000 mg In 393.874 380.0 123.602 Empty Bag 1 bag @ Titrate IV .Q0M [facility] Rx#: [id number] Output: Gastric Drainage 150 Drainage 35 20 Abdomen 35 20 Urine 1715 1840 275 Emesis 500 100 Other: Voiding Method Indwelling Catheter Indwelling Catheter ABP, PAP, CO, CI - Last Documented Arterial Blood Pressure 94/63 - Exam Gen. appearance the patient is obese, comfortable likely distress intubated on a mechanical ventilator orogastric and orotracheal tube are both in place Head exam was generally normal. There was no scleral icterus or corneal arcus. Mucous membranes were moist. Neck was supple and without jugular venous distension, thyromegaly, or carotid bruits. Carotids were easily palpable bilaterally. There was no adenopathy. Lungs sounds are diminished bilaterally along with scattered rhonchi and scattered expiratory wheezes on the lung lopez bilaterally. Heart sounds are non-tachycardic, positive S1-S2, regular, no cervical murmurs appreciated Abdomen is distended soft. There is minimal direct tenderness. There is a colostomy in the left upper quadrant area. The colostomy site seems to be viable with healthy tissue and that is no output in the colostomy bag. There is a large mid abdominal incision which is dry clean and intact. Bowel sounds are absent. There is no abdominal distention. There is also a CHAVEZ drain with serous material collecting in the container. Extremities show diminished pulses bilaterally especially lower extremities. No cyanosis. No clubbing. There is worsening edema in upper and lower extremities due to aggressive fluid resuscitation and third spacing. Examination of the skin revealed no evidence of significant rashes, suspicious appearing nevi or other concerning lesions. Neurologically sedated and the patient grimaces to painful stimulation in all 4 extremities. - Labs CBC & Chem 7: 09/19/18 04:17 09/19/18 04:17 Labs: Abnormal Lab Results - Last 24 Hours (Table) 09/18/18 09/18/18 09/18/18 Range/Units 11:45 18:23 23:26 RBC (4.30-5.90) m/uL Hgb (13.0-17.5) gm/dL Hct (39.0-53.0) % MCV (80.0-100.0) fL MCH (25.0-35.0) pg MCHC (31.0-37.0) g/dL RDW (11.5-15.5) % Lymphocytes # (Manual) (1.0-4.8) k/uL Nucleated RBCs (0-0) /100 WBC ABG pO2 (83-108) mmHg ABG HCO3 (21-25) mmol/L ABG O2 Saturation (94-97) % Chloride (98-107) mmol/L Carbon Dioxide (22-30) mmol/L BUN (9-20) mg/dL Glucose (74-99) mg/dL POC Glucose (mg/dL) 153 H 159 H 163 H (75-99) mg/dL Calcium (8.4-10.2) mg/dL Magnesium (1.6-2.3) mg/dL Total Protein (6.3-8.2) g/dL Albumin (3.5-5.0) g/dL 09/18/18 09/19/18 09/19/18 Range/Units 23:48 03:11 04:17 RBC 4.11 L (4.30-5.90) m/uL Hgb 7.8 L (13.0-17.5) gm/dL Hct 30.3 L (39.0-53.0) % MCV 73.8 L (80.0-100.0) fL MCH 19.0 L (25.0-35.0) pg MCHC 25.8 L (31.0-37.0) g/dL RDW 19.0 H (11.5-15.5) % Lymphocytes # (Manual) 0.69 L (1.0-4.8) k/uL Nucleated RBCs 3 H (0-0) /100 WBC ABG pO2 121 H (83-108) mmHg ABG HCO3 20 L (21-25) mmol/L ABG O2 Saturation 100.0 H (94-97) % Chloride (98-107) mmol/L Carbon Dioxide (22-30) mmol/L BUN (9-20) mg/dL Glucose (74-99) mg/dL POC Glucose (mg/dL) 160 H (75-99) mg/dL Calcium (8.4-10.2) mg/dL Magnesium (1.6-2.3) mg/dL Total Protein (6.3-8.2) g/dL Albumin (3.5-5.0) g/dL 09/19/18 09/19/18 Range/Units 04:17 05:51 RBC (4.30-5.90) m/uL Hgb (13.0-17.5) gm/dL Hct (39.0-53.0) % MCV (80.0-100.0) fL MCH (25.0-35.0) pg MCHC (31.0-37.0) g/dL RDW (11.5-15.5) % Lymphocytes # (Manual) (1.0-4.8) k/uL Nucleated RBCs (0-0) /100 WBC ABG pO2 (83-108) mmHg ABG HCO3 (21-25) mmol/L ABG O2 Saturation (94-97) % Chloride 112 H (98-107) mmol/L Carbon Dioxide 19 L (22-30) mmol/L BUN 35 H (9-20) mg/dL Glucose 163 H (74-99) mg/dL POC Glucose (mg/dL) 181 H (75-99) mg/dL Calcium 7.5 L (8.4-10.2) mg/dL Magnesium 2.4 H (1.6-2.3) mg/dL Total Protein 4.7 L (6.3-8.2) g/dL Albumin 2.3 L (3.5-5.0) g/dL Microbiology - Last 24 Hours (Table) 09/16/18 14:25 Blood Culture - Preliminary Blood No Growth after 48 hours 09/17/18 01:45 Urine Culture - Final Urine,Voided Assessment and Plan Plan: 1 perforated gastric ulcer/ischemic colon at the level of splenic fracture with bowel obstruction. The patient is post expiratory laparotomy, lysis of adhesions, repair of a gastric ulcer, transfers colectomy with takedown of splenic flexure and decompression of the colon and small bowel. The patient is postop day #3. 2 shock with profound hypotension, and the patient has been aggressively resuscitated IV fluids and pressors. Currently the patient is on a combination of IV fluids, pressors with a combination of norepinephrine and vasopressin and antibiotics. Remains quite hypotensive with high-dose pressors. Consider septic shock secondary to bowel perforation and gastric perforation. The pressor requirements have improved significantly. The patient is producing excellent urine output. Renal function continues to improve. 3 acute hypoxic respiratory failure secondary to above, currently intubated on a mechanical ventilator, chest x-ray showing bilateral pleural effusion and ET tube is in good location. The patient suctioning adequately for now. 4 acute kidney injury secondary to above, the patient is producing excellent urine output at this point in time. Renal function continues to improve. 5 mild lactic acidosis lactic acid level is down to 2.8 6 history of paroxysmal atrial fibrillation with a recent admission to the hospital because of A. fib/flutter with RVR current rhythm is sinus. The patient was taken off anticoagulation and the patient was given Kcentra be operatively 7 COPD 8 bronchial asthma 9 CHF with diastolic heart failure 10 obstructive sleep apnea noncompliant with CPAP therapy 11 recent hospitalization for select of the abdominal wall, was receiving Augmentin an outpatient basis 12 diabetes mellitus type 2 13 chronic hypoxic respiratory failure with an oxygen at 2 L per minute nasal cannula on outpatient basis 14 noncompliance with medication and medical treatment in general 15 tachycardia, likely A. fib/flutter. Improved with amiodarone bolus and the heart is under much better control for now. Plan Continue vent support. I'm hoping that we can wean off the norepinephrine infusion is discontinued today. Kept on IV fluids to KVO. The patient was started on TPN for nutritional support. The patient will be given a sedation holiday today. Discontinue the amiodarone after completing the bolus. Continue same antibiotic coverage. Continue the rest of the supportive care. We'll con tinue to follow make further recommendations as on his progress. Family has been updated on his condition. There is good progress in this patient over the past few days and he continues to be somewhat critical. We'll continue to follow and this critically care evaluation was in a more than 30 minutes. Time with Patient: Greater than 30
[2018-09-19] MEDS: FLUCONAZOLE IN NACL,ISO-OSM 200 MG in SALINE 1 100ML.BAG IVPB SCH (09:47)
[2018-09-19] MEDS: NOREPINEPHRINE 8 MG in SODIUM CHLORIDE 0.9% 250 ML IV SCH (10:29)
[2018-09-19] MEDS: HYDROmorphone 1 MG/ML 1 ML SYRINGE IVP PRN ×2 (10:38→23:07)
[2018-09-19 11:45] LABS: Glucose,Whole Blood 158 mg/dL (75-99)
[2018-09-19 12:34] LABS: Partial Thromboplastin Time 28.7 sec (22.0-30.0); Prothrombin Time 10.5 sec (9.0-12.0)
[2018-09-19 13:15] LABS: Anisocytosis Slight; Basophils % (A) 0 %; Eosinophils % (A) 0 %; HGB 7.8 gm/dL (13.0-17.5); Hypochromasia Marked; Lymphocytes # (A) 0.5 k/uL (1.0-4.8); Lymphocytes % (A) 5 %; MCH 19.2 pg (25.0-35.0); MCHC 25.9 g/dL (31.0-37.0); MCV 74.3 fL (80.0-100.0); Microcytosis Moderate; Monocytes # (A) 0.4 k/uL (0-1.0); Monocytes % (A) 5 %; Neutrophils % (A) 88 %; Platelet Count 349 k/uL (150-450); Poikilocytosis Moderate; RBC 4.04 m/uL (4.30-5.90); RDW 19.2 % (11.5-15.5)
--- NOTE | 2018-09-19 13:23 | P.PN ---
<Hellen Schmid A - Last Filed: 09/19/18 13:20> Subjective Progress Note Date: 09/19/18 CHIEF COMPLAINT: abdominal pain HISTORY OF PRESENT ILLNESS: patient underwent exploratory laparotomy, lysis of adhesions, decompression of colon and small bowel, transverse colectomy with h[place] of splenic flexure, and repair of gastric ulcer with Dr. De Leon secondary to pneumoperitoneum, perforated gastric ulcer, ischemic colon at splenic flexure, and bowel obstruction. POD #3. The patient remains intubated on mechanical ventilation in the intensive care unit. Patient remains on va sopressors, however dose is decreased from yesterday. Ostomy with gas and very small amount of stool. PHYSICAL EXAM: VITAL SIGNS: Reviewed. GENERAL: Well-developed in acute distress. Remains on sedation on mechanical ventilation. HEENT: ET tube noted. NG to LIS. No sclera icterus. Extraocular movements grossly intact. Moist buccal mucosa. Head is atraumatic, normocephalic. ABDOMEN: Abdomen distended. Dressing CDI. CHAVEZ drain with serosanguineous drainage. Left-sided colostomy with gas and small amount of stool noted Ostomy appears viable. NEUROLOGIC: Patient sedated on mechanical ventilation ASSESSMENT: 1. Abdominal pain 2. Pneumoperitoneum 3. S/P exploratory laparotomy, lysis of adhesions, decompression of colon and small bowel, transverse colectomy with takedown of splenic flexure, and repair of gastric ulcer secondary to pneumoperitoneum, perforated gastric ulcer, ischemic colon at splenic flexure, and bowel obstruction 4. Septic shock, present on admission secondary to above 5. History of atrial fibrillation, on long-term anticoagulation with Eliquis 6. History of bowel obstruction 7. History of laparoscopic Bruce fundoplication 8. History of hiatal hernia repair with mesh PLAN: 1. Continue ventilator management per Dr. Red 2. Wean vasopressors as tolerated 3. Continue antibiotics. Dr. Benedict consulted. 4. Okay from surgery standpoint to initiate IV heparin drip. No bolus. 5. Monitor labs 6. Daily wound changes with wet to dry packing. Per Dr. De Leon, Ok for wound vac when Dr. Benedict feels appropriate. 7. Ostomy resource RN on consult 8. Continue TPN Nurse practitioner note has been reviewed by physician. Signing provider agrees with the documented findings, assessment, and plan of care. Objective - Vital Signs Vital signs: Vital Signs Temp 97.4 F L 09/19/18 07:30 Pulse 99 09/19/18 13:00 Resp 26 H 09/19/18 13:00 BP 107/73 09/19/18 13:00 Pulse Ox 96 09/19/18 13:00 Intake & Output 09/18/18 09/19/18 09/19/18 18:59 06:59 18:59 Intake Total 2582.042 3327.915 1101.644 Output Total 2400 1960 750 Balance 375.211 2552.915 351.644 Weight 160 kg 163.9 kg 163.9 kg Intake: IV 1872 2558 723 Mvi, Adult No.4 with Vit 360 180 K 10 ml Trace (Conc-1Ml/ Dose) 1 ml In Amino Acid 5%-D15w+Lytes*E* 1,000 ml @ 30 mls/hr IV .Q24H [facility] Rx#:[id number] Piperacillin-Tazobactam 3 100 125 .375 gm In Sodium Chloride 0.9% 100 ml @ 25 mls/hr IVPB Q8HR [facility] Rx# :[id number] Pressure Bag 72 48 18 Sodium Chloride 0.9% 1, 1800 1950 300 000 ml @ 150 mls/hr IV . Q6H40M [facility] Rx#:[id number] metroNIDAZOLE-NS PMX 500 100 100 mg In Saline 1 100ml.bag @ 100 mls/hr IVPB Q8HR [facility] Rx#:[id number] Intake, IV Titration 710.042 769.915 378.644 Amount Amiodarone 300 mg In 242.917 Dextrose 5% in Water 250 ml @ 0.5 MG/MIN 25 mls/hr IV .Q10H [facility] Rx#: [id number] Fluconazole in NaCl,Iso- 100 Osm 200 mg In Saline 1 100ml.bag @ 100 mls/hr IVPB DAILY [facility] Rx#: [id number] Norepinephrine 8 mg In 316.168 146.998 52.834 Sodium Chloride 0.9% 250 ml @ 0.05 MCG/KG/MIN 14. 35 mls/hr IV .[id number] [facility] Rx#:[id number] Propofol 1,000 mg In 393.874 380.0 145.810 Empty Bag 1 bag @ Titrate IV .Q0M [facility] Rx#: [id number] Sodium Chloride 0.9% 1, 80 000 ml @ 20 mls/hr IV . Q24H [facility] Rx#:[id number] Output: Gastric Drainage 150 Drainage 35 20 Abdomen 35 20 Urine 1715 1840 750 Emesis 500 100 Other: Voiding Method Indwelling Catheter Indwelling Catheter ABP, PAP, CO, CI - Last Documented Arterial Blood Pressure 90/64 - Labs CBC & Chem 7: 09/19/18 12:44 09/19/18 04:17 Labs: Abnormal Lab Results - Last 24 Hours (Table) 09/18/18 09/18/18 09/18/18 Range/Units 18:23 23:26 23:48 RBC (4.30-5.90) m/uL Hgb (13.0-17.5) gm/dL Hct (39.0-53.0) % MCV (80.0-100.0) fL MCH (25.0-35.0) pg MCHC (31.0-37.0) g/dL RDW (11.5-15.5) % Neutrophils # (1.3-7.7) k/uL Lymphocytes # (1.0-4.8) k/uL Lymphocytes # (Manual) (1.0-4.8) k/uL Nucleated RBCs (0-0) /100 WBC ABG pO2 (83-108) mmHg ABG HCO3 (21-25) mmol/L ABG O2 Saturation (94-97) % Chloride (98-107) mmol/L Carbon Dioxide (22-30) mmol/L BUN (9-20) mg/dL Glucose (74-99) mg/dL POC Glucose (mg/dL) 159 H 163 H 160 H (75-99) mg/dL Calcium (8.4-10.2) mg/dL Magnesium (1.6-2.3) mg/dL Total Protein (6.3-8.2) g/dL Albumin (3.5-5.0) g/dL 09/19/18 09/19/18 09/19/18 Range/Units 03:11 04:17 04:17 RBC 4.11 L (4.30-5.90) m/uL Hgb 7.8 L (13.0-17.5) gm/dL Hct 30.3 L (39.0-53.0) % MCV 73.8 L (80.0-100.0) fL MCH 19.0 L (25.0-35.0) pg MCHC 25.8 L (31.0-37.0) g/dL RDW 19.0 H (11.5-15.5) % Neutrophils # (1.3-7.7) k/uL Lymphocytes # (1.0-4.8) k/uL Lymphocytes # (Manual) 0.69 L (1.0-4.8) k/uL Nucleated RBCs 3 H (0-0) /100 WBC ABG pO2 121 H (83-108) mmHg ABG HCO3 20 L (21-25) mmol/L ABG O2 Saturation 100.0 H (94-97) % Chloride 112 H (98-107) mmol/L Carbon Dioxide 19 L (22-30) mmol/L BUN 35 H (9-20) mg/dL Glucose 163 H (74-99) mg/dL POC Glucose (mg/dL) (75-99) mg/dL Calcium 7.5 L (8.4-10.2) mg/dL Magnesium 2.4 H (1.6-2.3) mg/dL Total Protein 4.7 L (6.3-8.2) g/dL Albumin 2.3 L (3.5-5.0) g/dL 09/19/18 09/19/18 09/19/18 Range/Units 05:51 11:43 12:44 RBC 4.04 L (4.30-5.90) m/uL Hgb 7.8 L (13.0-17.5) gm/dL Hct 30.0 L (39.0-53.0) % MCV 74.3 L (80.0-100.0) fL MCH 19.2 L (25.0-35.0) pg MCHC 25.9 L (31.0-37.0) g/dL RDW 19.2 H (11.5-15.5) % Neutrophils # 8.0 H (1.3-7.7) k/uL Lymphocytes # 0.5 L (1.0-4.8) k/uL Lymphocytes # (Manual) (1.0-4.8) k/uL Nucleated RBCs (0-0) /100 WBC ABG pO2 (83-108) mmHg ABG HCO3 (21-25) mmol/L ABG O2 Saturation (94-97) % Chloride (98-107) mmol/L Carbon Dioxide (22-30) mmol/L BUN (9-20) mg/dL Glucose (74-99) mg/dL POC Glucose (mg/dL) 181 H 158 H (75-99) mg/dL Calcium (8.4-10.2) mg/dL Magnesium (1.6-2.3) mg/dL Total Protein (6.3-8.2) g/dL Albumin (3.5-5.0) g/dL Microbiology - Last 24 Hours (Table) 09/16/18 14:25 Blood Culture - Preliminary Blood No Growth after 48 hours 09/17/18 01:45 Urine Culture - Final Urine,Voided <Tree Nevarez - Last Filed: 09/19/18 16:06> Subjective As above. Patient remains on the ventilator. Pressure support in the form of Levophed and vasopressin he is decreased. Ostomy is pink and functioning. Labs reviewed. Continue TPN. May begin anticoagulation. We'll follow. Objective - Vital Signs Vital signs: Vital Signs Temp 97.4 F L 09/19/18 07:30 Pulse 96 09/19/18 15:47 Resp 26 H 09/19/18 15:31 BP 114/77 09/19/18 15:00 Pulse Ox 95 09/19/18 15:00 Intake & Output 09/18/18 09/19/18 09/19/18 18:59 06:59 18:59 Intake Total 2582.042 3327.915 1291.834 Output Total 2400 1960 1175 Balance 863.704 8017.915 116.834 Weight 160 kg 163.9 kg 163.9 kg Intake: IV 1872 2558 839 Mvi, Adult No.4 with Vit 360 240 K 10 ml Trace (Conc-1Ml/ Dose) 1 ml In Amino Acid 5%-D15w+Lytes*E* 1,000 ml @ 30 mls/hr IV .Q24H [facility] Rx#:[id number] Piperacillin-Tazobactam 3 100 175 .375 gm In Sodium Chloride 0.9% 100 ml @ 25 mls/hr IVPB Q8HR [facility] Rx# :[id number] Pressure Bag 72 48 24 Sodium Chloride 0.9% 1, 1800 1950 300 000 ml @ 150 mls/hr IV . Q6H40M [facility] Rx#:[id number] metroNIDAZOLE-NS PMX 500 100 100 mg In Saline 1 100ml.bag @ 100 mls/hr IVPB Q8HR [facility] Rx#:[id number] Intake, IV Titration 710.042 769.915 452.834 Amount Amiodarone 300 mg In 242.917 Dextrose 5% in Water 250 ml @ 0.5 MG/MIN 25 mls/hr IV .Q10H [facility] Rx#: [id number] Fluconazole in NaCl,Iso- 100 Osm 200 mg In Saline 1 100ml.bag @ 100 mls/hr IVPB DAILY [facility] Rx#: [id number] Norepinephrine 8 mg In 316.168 146.998 52.834 Sodium Chloride 0.9% 250 ml @ 0.05 MCG/KG/MIN 14. 35 mls/hr IV .[id number] [facility] Rx#:[id number] Propofol 1,000 mg In 393.874 380.0 200.000 Empty Bag 1 bag @ Titrate IV .Q0M [facility] Rx#: [id number] Sodium Chloride 0.9% 1, 100 000 ml @ 20 mls/hr IV . Q24H [facility] Rx#:[id number] Output: Gastric Drainage 150 Drainage 35 20 Abdomen 35 20 Urine 1715 1840 1175 Emesis 500 100 Other: Voiding Method Indwelling Catheter Indwelling Catheter ABP, PAP, CO, CI - Last Documented Arterial Blood Pressure 90/64 - Labs CBC & Chem 7: 09/19/18 12:44 09/19/18 04:17 Labs: Abnormal Lab Results - Last 24 Hours (Table) 09/18/18 09/18/18 09/18/18 Range/Units 18:23 23:26 23:48 RBC (4.30-5.90) m/uL Hgb (13.0-17.5) gm/dL Hct (39.0-53.0) % MCV (80.0-100.0) fL MCH (25.0-35.0) pg MCHC (31.0-37.0) g/dL RDW (11.5-15.5) % Neutrophils # (1.3-7.7) k/uL Lymphocytes # (1.0-4.8) k/uL Lymphocytes # (Manual) (1.0-4.8) k/uL Nucleated RBCs (0-0) /100 WBC ABG pO2 (83-108) mmHg ABG HCO3 (21-25) mmol/L ABG O2 Saturation (94-97) % Chloride (98-107) mmol/L Carbon Dioxide (22-30) mmol/L BUN (9-20) mg/dL Glucose (74-99) mg/dL POC Glucose (mg/dL) 159 H 163 H 160 H (75-99) mg/dL Calcium (8.4-10.2) mg/dL Magnesium (1.6-2.3) mg/dL Total Protein (6.3-8.2) g/dL Albumin (3.5-5.0) g/dL 09/19/18 09/19/18 09/19/18 Range/Units 03:11 04:17 04:17 RBC 4.11 L (4.30-5.90) m/uL Hgb 7.8 L (13.0-17.5) gm/dL Hct 30.3 L (39.0-53.0) % MCV 73.8 L (80.0-100.0) fL MCH 19.0 L (25.0-35.0) pg MCHC 25.8 L (31.0-37.0) g/dL RDW 19.0 H (11.5-15.5) % Neutrophils # (1.3-7.7) k/uL Lymphocytes # (1.0-4.8) k/uL Lymphocytes # (Manual) 0.69 L (1.0-4.8) k/uL Nucleated RBCs 3 H (0-0) /100 WBC ABG pO2 121 H (83-108) mmHg ABG HCO3 20 L (21-25) mmol/L ABG O2 Saturation 100.0 H (94-97) % Chloride 112 H (98-107) mmol/L Carbon Dioxide 19 L (22-30) mmol/L BUN 35 H (9-20) mg/dL Glucose 163 H (74-99) mg/dL POC Glucose (mg/dL) (75-99) mg/dL Calcium 7.5 L (8.4-10.2) mg/dL Magnesium 2.4 H (1.6-2.3) mg/dL Total Protein 4.7 L (6.3-8.2) g/dL Albumin 2.3 L (3.5-5.0) g/dL 09/19/18 09/19/18 09/19/18 Range/Units 05:51 11:43 12:44 RBC 4.04 L (4.30-5.90) m/uL Hgb 7.8 L (13.0-17.5) gm/dL Hct 30.0 L (39.0-53.0) % MCV 74.3 L (80.0-100.0) fL MCH 19.2 L (25.0-35.0) pg MCHC 25.9 L (31.0-37.0) g/dL RDW 19.2 H (11.5-15.5) % Neutrophils # 8.0 H (1.3-7.7) k/uL Lymphocytes # 0.5 L (1.0-4.8) k/uL Lymphocytes # (Manual) (1.0-4.8) k/uL Nucleated RBCs (0-0) /100 WBC ABG pO2 (83-108) mmHg ABG HCO3 (21-25) mmol/L ABG O2 Saturation (94-97) % Chloride (98-107) mmol/L Carbon Dioxide (22-30) mmol/L BUN (9-20) mg/dL Glucose (74-99) mg/dL POC Glucose (mg/dL) 181 H 158 H (75-99) mg/dL Calcium (8.4-10.2) mg/dL Magnesium (1.6-2.3) mg/dL Total Protein (6.3-8.2) g/dL Albumin (3.5-5.0) g/dL Microbiology - Last 24 Hours (Table) 09/16/18 14:25 Blood Culture - Preliminary Blood No Growth after 48 hours
[2018-09-19] MEDS: HEPARIN SOD,PORK IN 0.45% NACL 25,000 UNIT in 0.45% NACL 1 250ML.BAG IV SCH (13:36)
--- NOTE | 2018-09-19 14:24 | P.PN ---
Subjective Progress Note Date: 09/19/18 This is a 72-year-old male patient of Dr. Cevallos with past history of chronic hypoxic respiratory failure on home O2 obstructive sleep apnea on CPAP, paroxysmal atrial fibrillation, chronic diastolic heart failure, severe COPD, morbid obesity with BMI of 47, hypertension hypertensive cardiovascular disease, mild intermittent asthma, hyperlipidemia, gastroesophageal reflux disease, diabetes mellitus type 2, cellulitis of the abdominal wall. Patient was recently hospitalized and discharged home on September 12 and treated for acute diastolic heart failure, atrial flutter/atrial fibrillation with rapid ventricular response status post MIKE which found a small atrial appendage thrombus. The patient was stabilized and discharged home in stable condition and had been started on amiodarone, eliquis, Aldactone, prednisone and Augmentin. Patient presented to [facility] emergency center for evaluation. He was afebrile, heart rate 130s, blood pressure 119/79, pulse ox 95%. White count was 5.9, hemoglobin 10.6, platelet count 4-72. Sodium 133, potassium 5.4, chloride 96, CO2 20, BUN 36 and creatinine 1.6, blood sugar 178. CAT scan of the abdomen and pelvis revealed pneumoperitoneum. Bowel distention. Bowel ischemia not excluded. No clear obstruction. Findings may be due to ileus. Patient was provided IV fluids, pain medication and Zosyn patient was seen by Dr. De Leon in the emergency center and taken to the OR found to have a perforated gastric ulcer, ischemic colon at the site of splenic flexure of the bowel obstruction. Patient underwent exploratory laparotomy, lysis of adhesions, decompression of the colon and small bowel, transverse colectomy and takedown of splenic flexure and repair of a gastric ulcer. Patient was then transferred to the intensive care unit and followed by Dr. Red. He is status post greater than 8 L of IV fluid and on norepinephrine and subsequent started on vasopressin. Urine output has been marginal patient remains intubated and on mechanical ventilation with tidal volume 550, FiO2 of 50% and PEEP of 5. The patient is on sedation. 09/18: Patient remains in intensive care unit intubated and on mechanical vent ilation with tidal volume 550, FiO2 50, PEEP 5. NG tube with black drainage. He is on 22 mics of levo fed and 0.03 vasopressin. Patient was started on amiodarone due to continued A. fib with RVR. Heart rate is in the 140s, blood pressure systolic 99. A.m. lab work white count 9.6, hemoglobin 8.5, platelet count 368. Sodium 136, potassium 4.9, chloride 108, CO2 18, BUN 39 creatinine 1.81. Blood sugars are running between 141 and 161. Urine culture is in progress and blood culture is no growth at [address] Benedict is recommended continuing Zosyn and Diflucan. Son is at bedside and all questions have been answered. 09/19: Patient remains in the intensive care unit intubated and on mechanical ventilation with tidal volume 550, FiO2 40 and PEEP of 5. Norepinephrine is now down to 5 mics and minimal on vasopressin. Urine output has been more than adequate. He has been afebrile. He is continued on sedation with propofol. A sedation holiday was attempted today but patient became tachypneic. Patient is back on sedation with plan for tomorrow for sedation holiday tomorrow. Patient has had output from colostomy and passing gas and colostomy. Decreased output from NG tube and from CHAVEZ drain. WBC 8.6, hemoglobin 7.8. He has been afebrile, heart rate 99, blood pressure 90/63. TPN has been started. Amiodarone drip to be discontinued. campus monitor is currently A. fib with controlled rate. Objective - Vital Signs Vital signs: Vital Signs Temp 97.4 F L 09/19/18 07:30 Pulse 99 09/19/18 10:00 Resp 27 H 09/19/18 10:00 BP 90/63 09/19/18 10:00 Pulse Ox 98 09/19/18 10:00 Intake & Output 09/18/18 09/19/18 09/19/18 18:59 06:59 18:59 Intake Total 2582.042 3327.915 804.812 Output Total 2400 1960 400 Balance 656.946 0955.915 404.812 Weight 160 kg 163.9 kg 163.9 kg Intake: IV 1872 2558 549 Mvi, Adult No.4 with Vit 360 90 K 10 ml Trace (Conc-1Ml/ Dose) 1 ml In Amino Acid 5%-D15w+Lytes*E* 1,000 ml @ 30 mls/hr IV .Q24H [facility] Rx#:[id number] Piperacillin-Tazobactam 3 100 50 .375 gm In Sodium Chloride 0.9% 100 ml @ 25 mls/hr IVPB Q8HR [facility] Rx# :[id number] Pressure Bag 72 48 9 Sodium Chloride 0.9% 1, 1800 1950 300 000 ml @ 150 mls/hr IV . Q6H40M [facility] Rx#:[id number] metroNIDAZOLE-NS PMX 500 100 100 mg In Saline 1 100ml.bag @ 100 mls/hr IVPB Q8HR [facility] Rx#:[id number] Intake, IV Titration 710.042 769.915 255.812 Amount Amiodarone 300 mg In 242.917 Dextrose 5% in Water 250 ml @ 0.5 MG/MIN 25 mls/hr IV .Q10H [facility] Rx#: [id number] Fluconazole in NaCl,Iso- 100 Osm 200 mg In Saline 1 100ml.bag @ 100 mls/hr IVPB DAILY [facility] Rx#: [id number] Norepinephrine 8 mg In 316.168 146.998 Sodium Chloride 0.9% 250 ml @ 0.05 MCG/KG/MIN 14. 35 mls/hr IV .[id number] [facility] Rx#:[id number] Propofol 1,000 mg In 393.874 380.0 135.812 Empty Bag 1 bag @ Titrate IV .Q0M [facility] Rx#: [id number] Sodium Chloride 0.9% 1, 20 000 ml @ 20 mls/hr IV . Q24H [facility] Rx#:[id number] Output: Gastric Drainage 150 Drainage 35 20 Abdomen 35 20 Urine 1715 1840 400 Emesis 500 100 Other: Voiding Method Indwelling Catheter Indwelling Catheter ABP, PAP, CO, CI - Last Documented Arterial Blood Pressure 115/69 - Exam Review of Systems ROS unobtainable: due to endotracheal tube Gen: This is a 72-year-old morbidly obese male. He is in the intensive care unit. Patient is intubated and on mechanical ventilation. HEENT: Head is atraumatic, normocephalic. Pupils equal, round. Sclerae is anicteric. NG tube in place draining dark liquid. Oral tracheal tube in place. Mucous membranes of the mouth are moist. NECK: Supple. No JVD. No lymphadenopathy. No thyromegaly. LUNGS: Diminished bilaterally with scattered rhonchi and expiratory wheeze. HEART: Irregular rate and rhythm. Systolic murmur. campus monitor atrial fibrillation with rate control. ABDOMEN: Soft. Large. Normal bowel sounds are present. Colostomy in the left upper quadrant with positive gas. There is a large mid abdominal incision with dressing that is dry and intact. No breakthrough bleeding or drainage. CHAVEZ drain with serous material. Foster catheter draining clear urine. EXTREMITIES: No pedal edema. No calf tenderness. Midline to right upper arm. NEUROLOGICAL: Patient is sedated. - Labs CBC & Chem 7: 09/19/18 12:44 09/19/18 04:17 Labs: Abnormal Lab Results - Last 24 Hours (Table) 09/18/18 09/18/18 09/18/18 Range/Units 11:45 18:23 23:26 RBC (4.30-5.90) m/uL Hgb (13.0-17.5) gm/dL Hct (39.0-53.0) % MCV (80.0-100.0) fL MCH (25.0-35.0) pg MCHC (31.0-37.0) g/dL RDW (11.5-15.5) % Lymphocytes # (Manual) (1.0-4.8) k/uL Nucleated RBCs (0-0) /100 WBC ABG pO2 (83-108) mmHg ABG HCO3 (21-25) mmol/L ABG O2 Saturation (94-97) % Chloride (98-107) mmol/L Carbon Dioxide (22-30) mmol/L BUN (9-20) mg/dL Glucose (74-99) mg/dL POC Glucose (mg/dL) 153 H 159 H 163 H (75-99) mg/dL Calcium (8.4-10.2) mg/dL Magnesium (1.6-2.3) mg/dL Total Protein (6.3-8.2) g/dL Albumin (3.5-5.0) g/dL 09/18/18 09/19/18 09/19/18 Range/Units 23:48 03:11 04:17 RBC 4.11 L (4.30-5.90) m/uL Hgb 7.8 L (13.0-17.5) gm/dL Hct 30.3 L (39.0-53.0) % MCV 73.8 L (80.0-100.0) fL MCH 19.0 L (25.0-35.0) pg MCHC 25.8 L (31.0-37.0) g/dL RDW 19.0 H (11.5-15.5) % Lymphocytes # (Manual) 0.69 L (1.0-4.8) k/uL Nucleated RBCs 3 H (0-0) /100 WBC ABG pO2 121 H (83-108) mmHg ABG HCO3 20 L (21-25) mmol/L ABG O2 Saturation 100.0 H (94-97) % Chloride (98-107) mmol/L Carbon Dioxide (22-30) mmol/L BUN (9-20) mg/dL Glucose (74-99) mg/dL POC Glucose (mg/dL) 160 H (75-99) mg/dL Calcium (8.4-10.2) mg/dL Magnesium (1.6-2.3) mg/dL Total Protein (6.3-8.2) g/dL Albumin (3.5-5.0) g/dL 09/19/18 09/19/18 Range/Units 04:17 05:51 RBC (4.30-5.90) m/uL Hgb (13.0-17.5) gm/dL Hct (39.0-53.0) % MCV (80.0-100.0) fL MCH (25.0-35.0) pg MCHC (31.0-37.0) g/dL RDW (11.5-15.5) % Lymphocytes # (Manual) (1.0-4.8) k/uL Nucleated RBCs (0-0) /100 WBC ABG pO2 (83-108) mmHg ABG HCO3 (21-25) mmol/L ABG O2 Saturation (94-97) % Chloride 112 H (98-107) mmol/L Carbon Dioxide 19 L (22-30) mmol/L BUN 35 H (9-20) mg/dL Glucose 163 H (74-99) mg/dL POC Glucose (mg/dL) 181 H (75-99) mg/dL Calcium 7.5 L (8.4-10.2) mg/dL Magnesium 2.4 H (1.6-2.3) mg/dL Total Protein 4.7 L (6.3-8.2) g/dL Albumin 2.3 L (3.5-5.0) g/dL Microbiology - Last 24 Hours (Table) 09/16/18 14:25 Blood Culture - Preliminary Blood No Growth after 48 hours 09/17/18 01:45 Urine Culture - Final Urine,Voided Assessment and Plan Plan: 1. Abdominal pain secondary to perforated gastric ulcer, ischemic colon at the splenic flexure with bowel obstruction status post exploratory laparotomy, lysis of adhesions, repair of gastric ulcer, transverse colectomy and takedown of the splenic flexure. Continue fluconazole, Flagyl IV, Zosyn IV. Dr. Benedict consult appreciated. 2. Hypovolemic shock status post IV fluid resuscitation and vasopressors. Patient is currently on norepinephrine and vasopressin--to be weaned. 3. Acute on chronic hypoxic respiratory failure secondary to above. Patient is currently intubated and on mechanical ventilation. Patient is managed by Dr. Red. 4. Acute kidney injury secondary to shock. Continue IV fluids and vasopressors, continue to monitor closely 5. Lactic acidosis. 6. Paroxysmal atrial fibrillation with A. fib RVR, currently rate controlled. Eliquis is on hold. Patient is status post Kcentra for reversal of eliquis. Patient is status post IV amiodarone. 7. Chronic diastolic heart failure, stable. 8. Severe COPD, stable. 9. Obstructive sleep apnea with CPAP, noncompliance. 10. Mild intermittent asthma, stable. 11. Hyperlipidemia. 12. Gastroesophageal reflux disease and GI prophylaxis. Continue Protonix 40 mg IV daily. 13. Diabetes mellitus type 2. Continue NovoLog scale every 6 hours. Hold metformin and Januvia. 14. Severe protein calorie malnutrition due to nothing by mouth status. Patient on TPN Discharge plan: To be determined. Most likely subacute rehab. Impression and plan of care have been directed as dictated by the signing physician. Loreta Medellin nurse practitioner acting as scribe for signing physician.
[2018-09-19 18:28] LABS: Glucose,Whole Blood 161 mg/dL (75-99)
--- NOTE | 2018-09-19 19:47 | PN ---
PROGRESS NOTE DATE OF SERVICE: 09/19/2018. REASON FOR FOLLOWUP: Abdominal sepsis with secondary peritonitis. INTERVAL HISTORY: The patient is currently afebrile. Patient hemodynamically is slightly better than yesterday with decrease in amount of Levophed. The patient remains to be intubated on the vent. FiO2 is down to 40%. The patient remains sedated on the vent. Family at the bedside. PHYSICAL EXAMINATION: Blood pressure 114/77 with a pulse of 96, temperature 98. He is 95% on 40% FiO2. General description is an elderly male lying in bed in no distress. Respiratory system: Unlabored breathing with decreased breath sounds at the bases. HEART: S1, S2. Regular rate and rhythm. ABDOMEN: Soft, slightly distended. EXTREMITIES: Some trace edema of the feet. LABS: Hemoglobin 7.8, white count 9.0, BUN of 35, creatinine is 1.20. Blood culture negative. No overt culture. DIAGNOSTIC IMPRESSION AND PLAN: Patient with a perforated gastric ulcer and ischemic status post laparotomy and repair of the perforation ischemic colon. Patient is currently covered on Zosyn. We will monitor clinical course carefully. Family at the bedside. Questions and concerns were answered. MMODL / IJN: [id number] / MTDSean
[2018-09-19] MEDS: MVI, ADULT NO.4 WITH VIT K 10 ML, TRACE (CONC-1ML/DOSE) 1 ML, SODIUM ACETATE 30 MEQ, PO... IV SCH ×7 (21:09)
[2018-09-19 23:12] LABS: Glucose,Whole Blood 177 mg/dL (75-99)
[2018-09-20] MEDS: PROPOFOL 1,000 MG in EMPTY BAG 1 BAG IV SCH ×9 (00:53→23:16)
[2018-09-20] MEDS: SODIUM CHLORIDE 0.9% 50 ML with VASOPRESSIN 20 UNIT IVPB SCH ×6 (02:13→20:50)
[2018-09-20] MEDS: IPRATROPIUM-ALBUTEROL 3 ML NEB INHALATION SCH ×6 (03:45→23:38)
[2018-09-20 04:41] LABS: ABG Base Excess -3.8 mmol/L; ABG HCO3 21 mmol/L (21-25); ABG Oxygen Saturation 98.2 % (94-97); ABG PCO2 34 mmHg (35-45); ABG PO2 76 mmHg (83-108); ABG TCO2 22 mmol/L (19-24)
[2018-09-20 04:44] LABS: Allen Test Performed? no
[2018-09-20 05:24] LABS: Anisocytosis Slight; Basophils % (A) 0 %; Eosinophils % (A) 0 %; HCT 28.8 % (39.0-53.0); HGB 7.4 gm/dL (13.0-17.5); Hypochromasia Marked; Lymphocytes # (A) 0.7 k/uL (1.0-4.8); Lymphocytes % (A) 9 %; MCH 18.8 pg (25.0-35.0); MCHC 25.6 g/dL (31.0-37.0); MCV 73.4 fL (80.0-100.0); Mean Platelet Volume 7.1; Microcytosis Moderate; Monocytes # (A) 0.4 k/uL (0-1.0); Monocytes % (A) 6 %; Neutrophils # (A) 6.3 k/uL (1.3-7.7); Neutrophils % (A) 83 %; Platelet Count 340 k/uL (150-450); Poikilocytosis Moderate; RBC 3.92 m/uL (4.30-5.90); RDW 19.1 % (11.5-15.5); WBC 7.6 k/uL (3.8-10.6)
[2018-09-20 05:30] LABS: Albumin 2.2 g/dL (3.5-5.0); Calcium 7.3 mg/dL (8.4-10.2); Magnesium 2.6 mg/dL (1.6-2.3); Phosphorus 3.2 mg/dL (2.5-4.5); Potassium 3.9 mmol/L (3.5-5.1); Total Bilirubin 0.5 mg/dL (0.2-1.3); Total Protein 4.6 g/dL (6.3-8.2)
[2018-09-20 06:04] LABS: Glucose,Whole Blood 181 mg/dL (75-99)
[2018-09-20] MEDS: INSULIN ASPART (NovoLOG) 100 UNIT/ML VIAL SQ SCH ×3 (06:07→19:17)
--- NOTE | 2018-09-20 06:17 | XR ---
EXAMINATION TYPE: XR chest 1V portable DATE OF EXAM: 09/20/2018 HISTORY: Tube placement. REFERENCE: Previous study dated 09/19/2018. FINDINGS: The patient is ET tube, NG tube and right internal jugular catheter remain in place, unchan ged in appearance. The heart is enlarged. There is vascular congestion and pulmonary edema. There are bilateral effusion s. IMPRESSION: CONTINUING CHANGES OF CONGESTIVE HEART FAILURE.
[2018-09-20] MEDS: HYDROCORTISONE SUCCINATE 100 MG/2 ML VIAL IV SCH ×2 (08:59→15:57)
[2018-09-20] MEDS: PANTOPRAZOLE 40 MG/10 ML VIAL IVP SCH (09:02)
[2018-09-20] MEDS: FLUCONAZOLE IN NACL,ISO-OSM 200 MG in SALINE 1 100ML.BAG IVPB SCH (09:02)
[2018-09-20] MEDS: CHLORHEXIDINE GLUCONATE 15 ML CUP MUCOUS MEM SCH ×2 (09:05→22:35)
[2018-09-20] MEDS: PIPERACILLIN-TAZOBACTAM 3.375 GM in SODIUM CHLORIDE 0.9% 100 ML IVPB SCH ×2 (09:05→16:05)
[2018-09-20] MEDS: DILTIAZEM 125 MG in SODIUM CHLORIDE 0.9% 100 ML IV SCH (10:24)
[2018-09-20] MEDS: metroNIDAZOLE-NS PMX 500 MG in SALINE 1 100ML.BAG IVPB SCH ×2 (10:29→16:04)
[2018-09-20 11:55] LABS: Glucose,Whole Blood 170 mg/dL (75-99)
--- NOTE | 2018-09-20 12:36 | P.PN ---
Subjective Progress Note Date: 09/20/18 Principal diagnosis: Perforated ulcer Patient doing better this morning. Patient has diuresed nicely. He was actually off of all pressors as of 4 AM. He was then started on Cardizem drip and because of the relative hypotension was started back on a low-dose of Levophed. White blood cell count 7.6, hemoglobin 7.4. T-max 99. Stool present in the ostomy appliance. Good urine output. Patient did have significant ascitic fluid from the CHAVEZ drain. 2 L of serous fluid drained yesterday. Nasogastric tube remains bilious. Objective - Vital Signs Vital signs: Vital Signs Temp 99 F 09/20/18 08:00 Pulse 114 H 09/20/18 11:41 Resp 26 H 09/20/18 11:30 BP 97/66 09/20/18 11:30 Pulse Ox 96 09/20/18 11:30 Intake & Output 09/19/18 09/20/18 09/20/18 18:59 06:59 18:59 Intake Total 3370.172 3405.569 859.620 Output Total 1845 2945 1465 Balance -23.489 115.569 -605.380 Weight 163.9 kg 164.7 kg Intake: IV 1146 2213 730 Fluconazole in NaCl,Iso- 100 Osm 200 mg In Saline 1 100ml.bag @ 100 mls/hr IVPB DAILY [facility] Rx#: [id number] Mvi, Adult No.4 with Vit 360 330 265 K 10 ml Trace (Conc-1Ml/ Dose) 1 ml In Amino Acid 5%-D15w+Lytes*E* 1,000 ml @ 30 mls/hr IV .Q24H [facility] Rx#:[id number] Piperacillin-Tazobactam 3 250 100 100 .375 gm In Sodium Chloride 0.9% 100 ml @ 25 mls/hr IVPB Q8HR [facility] Rx# :[id number] Pressure Bag 36 33 15 Sodium Chloride 0.9% 1, 300 1650 150 000 ml @ 150 mls/hr IV . Q6H40M [facility] Rx#:[id number] metroNIDAZOLE-NS PMX 500 200 100 100 mg In Saline 1 100ml.bag @ 100 mls/hr IVPB Q8HR [facility] Rx#:[id number] Intake, IV Titration 675.511 847.569 129.620 Amount Fluconazole in NaCl,Iso- 100 Osm 200 mg In Saline 1 100ml.bag @ 100 mls/hr IVPB DAILY [facility] Rx#: [id number] Heparin Sod,Pork in 0.45% 203.091 NaCl 25,000 unit In 0.45 % NaCl 1 250ml.bag @ 6.1 UNITS/KG/HR 9.998 mls/hr IV .Q24H [facility] Rx#: [id number] Norepinephrine 8 mg In 88.135 68.306 Sodium Chloride 0.9% 250 ml @ 0.05 MCG/KG/MIN 14. 35 mls/hr IV .[id number] [facility] Rx#:[id number] Propofol 1,000 mg In 307.376 576.172 129.620 Empty Bag 1 bag @ Titrate IV .Q0M [facility] Rx#: [id number] Sodium Chloride 0.9% 1, 180 000 ml @ 20 mls/hr IV . Q24H [facility] Rx#:[id number] Output: Gastric Drainage 200 Drainage 2000 400 Abdomen 2000 400 Urine 6200 607 5403 Stool 20 Emesis 100 Other: Voiding Method Indwelling Catheter Indwelling Catheter Indwelling Catheter ABP, PAP, CO, CI - Last Documented Arterial Blood Pressure 75/54 - Exam Abdomen: Soft, less distended, wound clean, no appreciable tenderness - Labs CBC & Chem 7: 09/20/18 04:35 09/20/18 04:35 Labs: Abnormal Lab Results - Last 24 Hours (Table) 09/19/18 09/19/18 09/19/18 Range/Units 12:44 18:22 20:00 RBC 4.04 L (4.30-5.90) m/uL Hgb 7.8 L (13.0-17.5) gm/dL Hct 30.0 L (39.0-53.0) % MCV 74.3 L (80.0-100.0) fL MCH 19.2 L (25.0-35.0) pg MCHC 25.9 L (31.0-37.0) g/dL RDW 19.2 H (11.5-15.5) % Neutrophils # 8.0 H (1.3-7.7) k/uL Lymphocytes # 0.5 L (1.0-4.8) k/uL APTT 30.6 H (22.0-30.0) sec ABG pCO2 (35-45) mmHg ABG pO2 (83-108) mmHg ABG O2 Saturation (94-97) % Chloride (98-107) mmol/L Carbon Dioxide (22-30) mmol/L BUN (9-20) mg/dL Glucose (74-99) mg/dL POC Glucose (mg/dL) 161 H (75-99) mg/dL Calcium (8.4-10.2) mg/dL Magnesium (1.6-2.3) mg/dL Total Protein (6.3-8.2) g/dL Albumin (3.5-5.0) g/dL 09/19/18 09/20/18 09/20/18 Range/Units 23:10 04:35 04:35 RBC 3.92 L (4.30-5.90) m/uL Hgb 7.4 L (13.0-17.5) gm/dL Hct 28.8 L (39.0-53.0) % MCV 73.4 L (80.0-100.0) fL MCH 18.8 L (25.0-35.0) pg MCHC 25.6 L (31.0-37.0) g/dL RDW 19.1 H (11.5-15.5) % Neutrophils # (1.3-7.7) k/uL Lymphocytes # 0.7 L (1.0-4.8) k/uL APTT (22.0-30.0) sec ABG pCO2 (35-45) mmHg ABG pO2 (83-108) mmHg ABG O2 Saturation (94-97) % Chloride 114 H (98-107) mmol/L Carbon Dioxide 19 L (22-30) mmol/L BUN 33 H (9-20) mg/dL Glucose 158 H (74-99) mg/dL POC Glucose (mg/dL) 177 H (75-99) mg/dL Calcium 7.3 L (8.4-10.2) mg/dL Magnesium 2.6 H (1.6-2.3) mg/dL Total Protein 4.6 L (6.3-8.2) g/dL Albumin 2.2 L (3.5-5.0) g/dL 09/20/18 09/20/1819 Range/Units 04:35 04:38 06:02 RBC (4.30-5.90) m/uL Hgb (13.0-17.5) gm/dL Hct (39.0-53.0) % MCV (80.0-100.0) fL MCH (25.0-35.0) pg MCHC (31.0-37.0) g/dL RDW (11.5-15.5) % Neutrophils # (1.3-7.7) k/uL Lymphocytes # (1.0-4.8) k/uL APTT 33.7 H (22.0-30.0) sec ABG pCO2 34 L (35-45) mmHg ABG pO2 76 L (83-108) mmHg ABG O2 Saturation 98.2 H (94-97) % Chloride (98-107) mmol/L Carbon Dioxide (22-30) mmol/L BUN (9-20) mg/dL Glucose (74-99) mg/dL POC Glucose (mg/dL) 181 H (75-99) mg/dL Calcium (8.4-10.2) mg/dL Magnesium (1.6-2.3) mg/dL Total Protein (6.3-8.2) g/dL Albumin (3.5-5.0) g/dL 09/20/18 Range/Units 11:52 RBC (4.30-5.90) m/uL Hgb (13.0-17.5) gm/dL Hct (39.0-53.0) % MCV (80.0-100.0) fL MCH (25.0-35.0) pg MCHC (31.0-37.0) g/dL RDW (11.5-15.5) % Neutrophils # (1.3-7.7) k/uL Lymphocytes # (1.0-4.8) k/uL APTT (22.0-30.0) sec ABG pCO2 (35-45) mmHg ABG pO2 (83-108) mmHg ABG O2 Saturation (94-97) % Chloride (98-107) mmol/L Carbon Dioxide (22-30) mmol/L BUN (9-20) mg/dL Glucose (74-99) mg/dL POC Glucose (mg/dL) 170 H (75-99) mg/dL Calcium (8.4-10.2) mg/dL Magnesium (1.6-2.3) mg/dL Total Protein (6.3-8.2) g/dL Albumin (3.5-5.0) g/dL Microbiology - Last 24 Hours (Table) 09/16/18 14:25 Blood Culture - Preliminary Blood No Growth after 72 hours Assessment and Plan (1) Perforated viscus Narrative/Plan: Patient overall doing better today. Continue diuresis. Continue antibiotics. Keep this patient nothing by mouth given the recent ulcer. CHAVEZ drain to suction. Local wound care to the mid abdominal incision. We'll follow. Current Visit: Yes Status: Acute Code(s): R19.8 - OTH SYMPTOMS AND SIGNS INVOLVING THE DGSTV SYS AND ABDOMEN SNOMED Code(s): 810123894
--- NOTE | 2018-09-20 12:55 | P.PN ---
Subjective Progress Note Date: 09/20/18 This is a 72-year-old male patient morbid obesity with known history of COPD, a sthma, proximal atrial fibrillation, diabetes mellitus, history of polycythemia with a Crump hemoglobin syndrome, hypertension and arthritis, who has been oxygen dependent at 2 L about 2 by nasal cannula on a chronic basis. The patient presented yesterday to the emergency department with extreme abdominal pain. The patient was apparently a constipated for a week and he was doing enemas at home. He ultimately felt a pop in the lower portion of his abdomen on the day of the presentation and he came in with severe abdominal pain. He was having emesis. CAT scan of the abdomen was done in the emergency department the patient was found to have no apparent 20. The patient had abdominal distention and his abdominal size was twice the normal. His blood pressure was in the low 90s. He was tachycardic with a heart rate in the 1:30. He was given IV fluids. He was given IV Zosyn. Blood cultures were sent. He was seen by general surgery and the patient was taken to the operating room, and the patient was found to have perforated gastric ulcer, ischemic colon at the site of the splen ic flexure of bowel obstruction. The patient underwent expiratory laparotomy, lysis of adhesions, decompression of the colon and small bowel, transverse colectomy and takedown of the splenic flexure and repair of the gastric ulcer. Estimated blood loss is only 100 mL. The patient overnight was brought into the intensive care unit. The patient was resuscitated aggressively with IV fluids. He was given colloids and crystalloids. He is given 8 L of IV fluids. He was started on pressors and currently norepinephrine infusion is running at 62 g per minute. The patient was also started on physiologic dose vasopressin at 0.03 units per minute. Currently is on propofol at 14 mics for sedation. He is receiving normal saline at the rate of 150 mL an hour. Urine output is in order of 20-30 mL an hour. He is warm. His temperature was 100.5. He is on a mechanical ventilator. He is on assist-control mode of ventilation with a tidal volume of 550 at the rate of 26 with an FiO2 of 80% and a PEEP of 5. Blood gases from this morning shows a pH of 7.315 with a pCO2 of 40 and pO2 of 134. His echocardiogram from previous admissions showed an ejection fraction of 55- 60%. He had a preserved LV function. No significant valvular abnormalities. Pulmonary to pressure estimated to be 44. His cardiac rhythm is currently sinus. The patient has a CHAVEZ drain in his abdomen and this is on the right side and output is around 80-90 mL of serous material. He also has a colostomy and the site is nonfunctioning it seems to be viable at this point. Note that the patient was in the hospital and he was discharged home on 09/12/2018 after being treated for a flutter/failure with rapid ventricular response and shortness of breath and acute diastolic heart failure. Upon discharge, the patient was started on amiodarone thousand milligrams twice a day, Eliquis, Aldactone, and he was given Augmentin on outpatient basis and a prednisone burst taper. He was discharged home on a 40 mg of prednisone. On today's evaluation of 09/18/2018, the patient is postop day #2. The patient is still sedated with propofol at 35 g per KG per minute. The patient is was sedated and calm and comfortable on a mechanical ventilator essentially on the same vent setting with a tidal volume of 550 and FiO2 of 50% with a PEEP of 5 and a respiratory rate of 26. The morning blood gases showed a pH of 7.36 with a pCO2 of 33 and pO2 of 109 and this was done and FiO2 of 50%. Chest x-ray showing cardiomegaly and some mild pulmonary vascular congestion. ET tube is in a good location. The patient has no significant rest or secretions. Hemodynamically, the patient has been aggressively resuscitated IV fluids. The patient is currently on normal saline the rate of 150 mL an hour. The patient is producing more than 50 mL an hour of urine output. The patient is still requiring pressors. The patient is on physiologic dose vasopressin. The patient is also on norepinephrine infusion which is currently running at 21 g per minute. The patient is afebrile. The patient is nothing by mouth. The p atient has bowel sounds and the patient has also has a colostomy in place. NG tube is in place output has been around 200 mL over the past 8 hours. Earlier this morning, the patient was seen to be in tachycardia. A 12-lead EKG was done and the rhythm is essentially undetermined. This is most likely supraventricular rhythm, A. fib versus flutter. SCDs felt to be less likely. A. fib is favored nontender the patient has had previous history of atrial fibrillation. This has not affected the patient's overall hemodynamics and blood pressure control. The white cell count is at 9.6. Hemoglobin was 8.5. The patient continues to be in acute kidney failure. Creatinine is up to 1.80 is stable compared to yesterday. On today's evaluation of 09/19/2018 the patient is postop day #3. On today's evaluation that has been further progress and the patient's blood pressure. Currently is only on 5 mics of norepinephrine infusion the patient is also on vasopressin physiologic dose. There has been considerable improvement in the pressor requirements over the past 24-48 hours. He is still producing more than 100 mL of urine output. Afebrile. Still intubated on a mechanical ventilator. Vent settings are essentially unchanged compared to yesterday with a tidal volume of 550 FiO2 of 50% with a PEEP of 5 and the respiratory rate of 26. Blood gases from today showed a pH of 7.36 with a pCO2 of 35 and pO2 of 121 and this was done and FiO2 of 50%. The patient is was arrested on propofol which is running at 40 mics. Chest x-ray from today shows bilateral pleural effusion and ET tube is in a good location. The patient has positive bowel sounds. The patient is producing some stool activity in his colostomy bag. The CHAVEZ drain output is minimal. NG tube output is minimal. The patient is still on broad- spectrum antibiotic coverage. Cultures from the abdominal wound have been all negative. White cell count is not elevated. Hemoglobin stable at 7.8. Family is at the bedside. As far as atrial fibrillation, the patient was bolused with amiodarone and following that the patient was maintained at a lower heart rate yet still in atrial fibrillation. No anticoagulants for now. The function is improving and the creatinine is down to 1.2. On 09/20/2018 patient is postop day #4. The patient is sedated this morning. The patient is off pressors and norepinephrine infusion and vasopressin has been discontinued. Urine output is excellent. We have noted increased in output from the CHAVEZ drain which has put out approximately 400 mL over the past few hours. Meanwhile the, surgical wound site is dry clean and intact. The patient has a functional colostomy and there is stool output in the colostomy bag. The patient remains on a mechanical ventilator. Vent settings are essentially unchanged. The patient had a blood gases this morning that showed a pH of 7.4 with a pCO2 of 34 and pO2 of 76. The patient had a chest x-ray that showed vascular congestion and edema and bilateral pleural effusions. The patient is on TPN for nutritional support. IV fluids have been cut down to KVO. He is on propofol for sedation. Elisha output is minimal at this point in time. No fever. No chills. Sedation holiday was given yesterday at the patient was not ready for any weaning. The same will be done today. Meanwhile, the patient is still in atrial fibrillation. The patient was taken off the amiodarone drip. The patient was started in IV heparin. Cardizem drip will be started today for rate control. The patient is afebrile. Renal function is normalized and the creatinine is down to 1.02. Objective - Vital Signs Vital signs: Vital Signs Temp 99 F 09/20/18 08:00 Pulse 114 H 09/20/18 11:41 Resp 26 H 09/20/18 11:30 BP 97/66 09/20/18 11:30 Pulse Ox 96 09/20/18 11:30 Intake & Output 09/19/18 09/20/18 09/20/18 18:59 06:59 18:59 Intake Total 5825.841 8501.569 859.620 Output Total 1845 2945 1465 Balance -23.489 115.569 -605.380 Weight 163.9 kg 164.7 kg Intake: IV 1146 2213 730 Fluconazole in NaCl,Iso- 100 Osm 200 mg In Saline 1 100ml.bag @ 100 mls/hr IVPB DAILY [facility] Rx#: [id number] Mvi, Adult No.4 with Vit 360 330 265 K 10 ml Trace (Conc-1Ml/ Dose) 1 ml In Amino Acid 5%-D15w+Lytes*E* 1,000 ml @ 30 mls/hr IV .Q24H [facility] Rx#:[id number] Piperacillin-Tazobactam 3 250 100 100 .375 gm In Sodium Chloride 0.9% 100 ml @ 25 mls/hr IVPB Q8HR [facility] Rx# :[id number] Pressure Bag 36 33 15 Sodium Chloride 0.9% 1, 300 1650 150 000 ml @ 150 mls/hr IV . Q6H40M [facility] Rx#:[id number] metroNIDAZOLE-NS PMX 500 200 100 100 mg In Saline 1 100ml.bag @ 100 mls/hr IVPB Q8HR [facility] Rx#:[id number] Intake, IV Titration 675.511 847.569 129.620 Amount Fluconazole in NaCl,Iso- 100 Osm 200 mg In Saline 1 100ml.bag @ 100 mls/hr IVPB DAILY [facility] Rx#: [id number] Heparin Sod,Pork in 0.45% 203.091 NaCl 25,000 unit In 0.45 % NaCl 1 250ml.bag @ 6.1 UNITS/KG/HR 9.998 mls/hr IV .Q24H [facility] Rx#: [id number] Norepinephrine 8 mg In 88.135 68.306 Sodium Chloride 0.9% 250 ml @ 0.05 MCG/KG/MIN 14. 35 mls/hr IV .[id number] [facility] Rx#:[id number] Propofol 1,000 mg In 307.376 576.172 129.620 Empty Bag 1 bag @ Titrate IV .Q0M [facility] Rx#: [id number] Sodium Chloride 0.9% 1, 180 000 ml @ 20 mls/hr IV . Q24H [facility] Rx#:[id number] Output: Gastric Drainage 200 Drainage 2000 400 Abdomen 2000 400 Urine 7099 280 4640 Stool 20 Emesis 100 Other: Voiding Method Indwelling Catheter Indwelling Catheter Indwelling Catheter ABP, PAP, CO, CI - Last Documented Arterial Blood Pressure 75/54 - Exam Gen. appearance the patient is obese, comfortable likely distress intubated on a mechanical ventilator orogastric and orotracheal tube are both in place Head exam was generally normal. There was no scleral icterus or corneal arcus. Mucous membranes were moist. Neck was supple and without jugular venous distension, thyromegaly, or carotid bruits. Carotids were easily palpable bilaterally. There was no adenopathy. Lungs sounds are diminished bilaterally along with scattered rhonchi and scattered expiratory wheezes on the lung lopez bilaterally. Heart sounds are non-tachycardic, positive S1-S2, regular, no cervical murmurs appreciated Abdomen is distended soft. There is minimal direct tenderness. There is a colostomy in the left upper quadrant area. The colostomy site seems to be viable with healthy tissue and that is no output in the colostomy bag. There is a large mid abdominal incision which is dry clean and intact. Bowel sounds are absent. There is no abdominal distention. There is also a CHAVEZ drain with serous material collecting in the container. Extremities show diminished pulses bilaterally especially lower extremities. No cyanosis. No clubbing. There is worsening edema in upper and lower extremities due to aggressive fluid resuscitation and third spacing. Examination of the skin revealed no evidence of significant rashes, suspicious appearing nevi or other concerning lesions. Neurologically sedated and the patient grimaces to painful stimulation in all 4 extremities. - Labs CBC & Chem 7: 09/20/18 04:35 09/20/18 04:35 Labs: Abnormal Lab Results - Last 24 Hours (Table) 09/19/18 09/19/18 09/19/18 Range/Units 12:44 18:22 20:00 RBC 4.04 L (4.30-5.90) m/uL Hgb 7.8 L (13.0-17.5) gm/dL Hct 30.0 L (39.0-53.0) % MCV 74.3 L (80.0-100.0) fL MCH 19.2 L (25.0-35.0) pg MCHC 25.9 L (31.0-37.0) g/dL RDW 19.2 H (11.5-15.5) % Neutrophils # 8.0 H (1.3-7.7) k/uL Lymphocytes # 0.5 L (1.0-4.8) k/uL APTT 30.6 H (22.0-30.0) sec ABG pCO2 (35-45) mmHg ABG pO2 (83-108) mmHg ABG O2 Saturation (94-97) % Chloride (98-107) mmol/L Carbon Dioxide (22-30) mmol/L BUN (9-20) mg/dL Glucose (74-99) mg/dL POC Glucose (mg/dL) 161 H (75-99) mg/dL Calcium (8.4-10.2) mg/dL Magnesium (1.6-2.3) mg/dL Total Protein (6.3-8.2) g/dL Albumin (3.5-5.0) g/dL 09/19/18 09/20/18 09/20/18 Range/Units 23:10 04:35 04:35 RBC 3.92 L (4.30-5.90) m/uL Hgb 7.4 L (13.0-17.5) gm/dL Hct 28.8 L (39.0-53.0) % MCV 73.4 L (80.0-100.0) fL MCH 18.8 L (25.0-35.0) pg MCHC 25.6 L (31.0-37.0) g/dL RDW 19.1 H (11.5-15.5) % Neutrophils # (1.3-7.7) k/uL Lymphocytes # 0.7 L (1.0-4.8) k/uL APTT (22.0-30.0) sec ABG pCO2 (35-45) mmHg ABG pO2 (83-108) mmHg ABG O2 Saturation (94-97) % Chloride 114 H (98-107) mmol/L Carbon Dioxide 19 L (22-30) mmol/L BUN 33 H (9-20) mg/dL Glucose 158 H (74-99) mg/dL POC Glucose (mg/dL) 177 H (75-99) mg/dL Calcium 7.3 L (8.4-10.2) mg/dL Magnesium 2.6 H (1.6-2.3) mg/dL Total Protein 4.6 L (6.3-8.2) g/dL Albumin 2.2 L (3.5-5.0) g/dL 09/20/18 09/20/18 09/20/18 Range/Units 04:35 04:38 06:02 RBC (4.30-5.90) m/uL Hgb (13.0-17.5) gm/dL Hct (39.0-53.0) % MCV (80.0-100.0) fL MCH (25.0-35.0) pg MCHC (31.0-37.0) g/dL RDW (11.5-15.5) % Neutrophils # (1.3-7.7) k/uL Lymphocytes # (1.0-4.8) k/uL APTT 33.7 H (22.0-30.0) sec ABG pCO2 34 L (35-45) mmHg ABG pO2 76 L (83-108) mmHg ABG O2 Saturation 98.2 H (94-97) % Chloride (98-107) mmol/L Carbon Dioxide (22-30) mmol/L BUN (9-20) mg/dL Glucose (74-99) mg/dL POC Glucose (mg/dL) 181 H (75-99) mg/dL Calcium (8.4-10.2) mg/dL Magnesium (1.6-2.3) mg/dL Total Protein (6.3-8.2) g/dL Albumin (3.5-5.0) g/dL 09/20/18 Range/Units 11:52 RBC (4.30-5.90) m/uL Hgb (13.0-17.5) gm/dL Hct (39.0-53.0) % MCV (80.0-100.0) fL MCH (25.0-35.0) pg MCHC (31.0-37.0) g/dL RDW (11.5-15.5) % Neutrophils # (1.3-7.7) k/uL Lymphocytes # (1.0-4.8) k/uL APTT (22.0-30.0) sec ABG pCO2 (35-45) mmHg ABG pO2 (83-108) mmHg ABG O2 Saturation (94-97) % Chloride (98-107) mmol/L Carbon Dioxide (22-30) mmol/L BUN (9-20) mg/dL Glucose (74-99) mg/dL POC Glucose (mg/dL) 170 H (75-99) mg/dL Calcium (8.4-10.2) mg/dL Magnesium (1.6-2.3) mg/dL Total Protein (6.3-8.2) g/dL Albumin (3.5-5.0) g/dL Microbiology - Last 24 Hours (Table) 09/16/18 14:25 Blood Culture - Preliminary Blood No Growth after 72 hours Assessment and Plan Plan: 1 perforated gastric ulcer/ischemic colon at the level of splenic fracture with bowel obstruction. The patient is post expiratory laparotomy, lysis of adhesions, repair of a gastric ulcer, transfers colectomy with takedown of splenic flexure and decompression of the colon and small bowel. The patient is postop day #4. 2 shock with profound hypotension, and the patient has been aggressively resuscitated IV fluids and pressors. The patient was on high-dose pressors and ultimately the vasopressin in the norepinephrine infusion were both discontinued. He is maintaining his own pressure for now. 3 acute hypoxic respiratory failure secondary to above, currently intubated on a mechanical ventilator, chest x-ray showing bilateral pleural effusion /edema 4 acute kidney injury secondary to above, recovered 5 mild lactic acidosis lactic acid level is down to 2.8 6 history of paroxysmal atrial fibrillation with a recent admission to the hospital because of A. fib/flutter with RVR current rhythm is sinus. The patient is back on IV heparin. Cardizem drip will be used for rate control 7 COPD 8 bronchial asthma 9 CHF with diastolic heart failure 10 obstructive sleep apnea noncompliant with CPAP therapy 11 recent hospitalization for select of the abdominal wall, was receiving Augmentin an outpatient basis 12 diabetes mellitus type 2 13 chronic hypoxic respiratory failure with an oxygen at 2 L per minute nasal cannula on outpatient basis 14 noncompliance with medication and medical treatment in general Plan Continue vent support. Sedation holiday. Check weaning parameters. Assessment Ms. to wean. Continue antibiotics. The patient is currently off pressors. Monitored hemodynamics. Function is normalized. Start IV heparin. Start IV Ca rdizem for rate control regarding the atrial fibrillation. Assess the possibility of starting the patient on some enteral feeding and this will be discussed with general surgery. Continue TPN for now. Monitor electrolytes. IV fluids to KVO. Monitor the output from the CHAVEZ drain. We will reevaluate this patient at the later stage. His condition is still critical and the patient is has done significant amount of progress over the past few days. Critically care evaluation was done and more than 30 minutes. Time with Patient: Greater than 30
[2018-09-20 19:17] LABS: Glucose,Whole Blood 193 mg/dL (75-99)
--- NOTE | 2018-09-20 19:49 | P.PN ---
Subjective Progress Note Date: 09/20/18 This is a 72-year-old male patient of Dr. Cevallos with past history of chronic hypoxic respiratory failure on home O2 obstructive sleep apnea on CPAP, paroxysmal atrial fibrillation, chronic diastolic heart failure, severe COPD, morbid obesity with BMI of 47, hypertension hypertensive cardiovascular disease, mild intermittent asthma, hyperlipidemia, gastroesophageal reflux disease, diabetes mellitus type 2, cellulitis of the abdominal wall. Patient was recently hospitalized and discharged home on September 12 and treated for acute diastolic heart failure, atrial flutter/atrial fibrillation with rapid ventricular response status post MIKE which found a small atrial appendage thrombus. The patient was stabilized and discharged home in stable condition and had been started on amiodarone, eliquis, Aldactone, prednisone and Augmentin. Patient presented to [facility] emergency center for evaluation. He was afebrile, heart rate 130s, blood pressure 119/79, pulse ox 95%. White count was 5.9, hemoglobin 10.6, platelet count 4-72. Sodium 133, potassium 5.4, chloride 96, CO2 20, BUN 36 and creatinine 1.6, blood sugar 178. CAT scan of the abdomen and pelvis revealed pneumoperitoneum. Bowel distention. Bowel ischemia not excluded. No clear obstruction. Findings may be due to ileus. Patient was provided IV fluids, pain medication and Zosyn patient was seen by Dr Sandor De Leon in the emergency center and taken to the OR found to have a perforated gastric ulcer, ischemic colon at the site of splenic flexure of the bowel obstruction. Patient underwent exploratory laparotomy, lysis of adhesions, decompression of the colon and small bowel, transverse colectomy and takedown of splenic flexure and repair of a gastric ulcer. Patient was then transferred to the intensive care unit and followed by Dr. Red. He is status post greater than 8 L of IV fluid and on norepinephrine and subsequent started on vasopressin. Urine output has been marginal patient remains intubated and on mechanical ventilation with tidal volume 550, FiO2 of 50% and PEEP of 5. The patient is on sedation. 09/18: Patient remains in intensive care unit intubated and on mechanical addie tilation with tidal volume 550, FiO2 50, PEEP 5. NG tube with black drainage. He is on 22 mics of levo fed and 0.03 vasopressin. Patient was started on amiodarone due to continued A. fib with RVR. Heart rate is in the 140s, blood pressure systolic 99. A.m. lab work white count 9.6, hemoglobin 8.5, platelet count 368. Sodium 136, potassium 4.9, chloride 108, CO2 18, BUN 39 creatinine 1.81. Blood sugars are running between 141 and 161. Urine culture is in progress and blood culture is no growth at [address] Benedict is recommended continuing Zosyn and Diflucan. Son is at bedside and all questions have been answered. 09/19: Patient remains in the intensive care unit intubated and on mechanical ventilation with tidal volume 550, FiO2 40 and PEEP of 5. Norepinephrine is now down to 5 mics and minimal on vasopressin. Urine output has been more than adequate. He has been afebrile. He is continued on sedation with propofol. A sedation holiday was attempted today but patient became tachypneic. Patient is back on sedation with plan for tomorrow for sedation holiday tomorrow. Patient has had output from colostomy and passing gas and colostomy. Decreased output from NG tube and from CHAVEZ drain. WBC 8.6, hemoglobin 7.8. He has been afebrile, heart rate 99, blood pressure 90/63. TPN has been started. Amiodarone drip to be discontinued. school lunch monitor is currently A. fib with controlled rate. 09/20 Patient remains in ICU, currently nothing by mouth, CHAVEZ drain has drained o naomi 2 L in 24 hours, patient has been off pressors, urine output is normal, patient is still on TPN, patient still has abdominal discomfort, otherwise no chest pain no shortness of breath, no palpitations. Hemoglobin currently at 7.4 from an admitting hemoglobin of 9.4, iron studies to be done, agent has initial myelocytes on admission, creatinine 1.02 from 1.2, surgical incision is dry, there is stool output in the colostomy bag, patient remains on mechanical ventilator, unchanged and settings. Followed closely by pulmonary medicine, Cardizem drip was initiated for atrial fibrillation. Attempt to be made with weaning ventilatory support in a.m. Objective - Vital Signs Vital signs: Vital Signs Temp 98.2 F 09/20/18 12:00 Pulse 93 09/20/18 19:00 Resp 17 09/20/18 19:00 BP 116/74 09/20/18 19:00 Pulse Ox 97 09/20/18 19:00 Intake & Output 09/20/18 09/20/18 09/21/18 06:59 18:59 06:59 Intake Total 3060.569 1417.516 103.667 Output Total 2945 3170 225 Balance 115.569 -1752.484 -121.333 Weight 164.7 kg Intake: IV 2213 1114 61 Fluconazole in NaCl,Iso- 100 Osm 200 mg In Saline 1 100ml.bag @ 100 mls/hr IVPB DAILY [facility] Rx#: [id number] Mvi, Adult No.4 with Vit 330 265 K 10 ml Trace (Conc-1Ml/ Dose) 1 ml In Amino Acid 5%-D15w+Lytes*E* 1,000 ml @ 30 mls/hr IV .Q24H [facility] Rx#:[id number] Mvi, Adult No.4 with Vit 330 55 K 10 ml Trace (Conc-1Ml/ Dose) 1 ml Sodium Acetate 30 meq Potassium Chloride 20 meq Calcium Gluconate 1 gm Sodium Phosphate 15 mmol In Amino Acid 5%-D15w 1,000 ml @ 55 mls/hr IV .Q19H7M [facility] Rx#:[id number] Piperacillin-Tazobactam 3 100 100 .375 gm In Sodium Chloride 0.9% 100 ml @ 25 mls/hr IVPB Q8HR [facility] Rx# :[id number] Pressure Bag 33 69 6 Sodium Chloride 0.9% 1, 1650 150 000 ml @ 150 mls/hr IV . Q6H40M [facility] Rx#:[id number] metroNIDAZOLE-NS PMX 500 100 100 mg In Saline 1 100ml.bag @ 100 mls/hr IVPB Q8HR [facility] Rx#:[id number] Intake, IV Titration 847.569 303.516 42.667 Amount Diltiazem 125 mg In 8 Sodium Chloride 0.9% 100 ml @ 5 MG/HR 5 mls/hr IV .Q24H [facility] Rx#:[id number] Heparin Sod,Pork in 0.45% 203.091 NaCl 25,000 unit In 0.45 % NaCl 1 250ml.bag @ 6.1 UNITS/KG/HR 9.998 mls/hr IV .Q24H [facility] Rx#: [id number] Norepinephrine 8 mg In 68.306 0 42.667 Sodium Chloride 0.9% 250 ml @ 0.05 MCG/KG/MIN 14. 35 mls/hr IV .[id number] [facility] Rx#:[id number] Propofol 1,000 mg In 576.172 295.516 Empty Bag 1 bag @ Titrate IV .Q0M [facility] Rx#: [id number] Output: Drainage 2000 1100 Abdomen 2000 1100 Urine 845 2070 225 Emesis 100 Other: Voiding Method Indwelling Catheter Indwelling Catheter ABP, PAP, CO, CI - Last Documented Arterial Blood Pressure 125/70 - Exam Sedated on vent - EENT Eyes: Present: PERRLA - Respiratory Respiratory: bilateral: diminished - Cardiovascular Rhythm: irregularly irregular Heart sounds: normal: S1, S2 - Gastrointestinal General gastrointestinal: Present: normal bowel sounds, soft - Integumentary Integumentary: Present: decreased turgor, normal - Neurologic Neurologic: Present: CNII-XII intact - Psychiatric Psychiatric Comment(s): Sedated on vent - Labs CBC & Chem 7: 09/20/18 04:35 09/20/18 04:35 Labs: Abnormal Lab Results - Last 24 Hours (Table) 09/19/18 09/19/18 09/20/18 Range/Units 20:00 23:10 04:35 RBC 3.92 L (4.30-5.90) m/uL Hgb 7.4 L (13.0-17.5) gm/dL Hct 28.8 L (39.0-53.0) % MCV 73.4 L (80.0-100.0) fL MCH 18.8 L (25.0-35.0) pg MCHC 25.6 L (31.0-37.0) g/dL RDW 19.1 H (11.5-15.5) % Lymphocytes # 0.7 L (1.0-4.8) k/uL APTT 30.6 H (22.0-30.0) sec ABG pCO2 (35-45) mmHg ABG pO2 (83-108) mmHg ABG O2 Saturation (94-97) % Chloride (98-107) mmol/L Carbon Dioxide (22-30) mmol/L BUN (9-20) mg/dL Glucose (74-99) mg/dL POC Glucose (mg/dL) 177 H (75-99) mg/dL Calcium (8.4-10.2) mg/dL Magnesium (1.6-2.3) mg/dL Total Protein (6.3-8.2) g/dL Albumin (3.5-5.0) g/dL 09/20/18 09/20/18 09/20/18 Range/Units 04:35 04:35 04:38 RBC (4.30-5.90) m/uL Hgb (13.0-17.5) gm/dL Hct (39.0-53.0) % MCV (80.0-100.0) fL MCH (25.0-35.0) pg MCHC (31.0-37.0) g/dL RDW (11.5-15.5) % Lymphocytes # (1.0-4.8) k/uL APTT 33.7 H (22.0-30.0) sec ABG pCO2 34 L (35-45) mmHg ABG pO2 76 L (83-108) mmHg ABG O2 Saturation 98.2 H (94-97) % Chloride 114 H (98-107) mmol/L Carbon Dioxide 19 L (22-30) mmol/L BUN 33 H (9-20) mg/dL Glucose 158 H (74-99) mg/dL POC Glucose (mg/dL) (75-99) mg/dL Calcium 7.3 L (8.4-10.2) mg/dL Magnesium 2.6 H (1.6-2.3) mg/dL Total Protein 4.6 L (6.3-8.2) g/dL Albumin 2.2 L (3.5-5.0) g/dL 09/20/18 09/20/18 09/20/18 Range/Units 06:02 11:52 19:13 RBC (4.30-5.90) m/uL Hgb (13.0-17.5) gm/dL Hct (39.0-53.0) % MCV (80.0-100.0) fL MCH (25.0-35.0) pg MCHC (31.0-37.0) g/dL RDW (11.5-15.5) % Lymphocytes # (1.0-4.8) k/uL APTT (22.0-30.0) sec ABG pCO2 (35-45) mmHg ABG pO2 (83-108) mmHg ABG O2 Saturation (94-97) % Chloride (98-107) mmol/L Carbon Dioxide (22-30) mmol/L BUN (9-20) mg/dL Glucose (74-99) mg/dL POC Glucose (mg/dL) 181 H 170 H 193 H (75-99) mg/dL Calcium (8.4-10.2) mg/dL Magnesium (1.6-2.3) mg/dL Total Protein (6.3-8.2) g/dL Albumin (3.5-5.0) g/dL Microbiology - Last 24 Hours (Table) 09/16/18 14:25 Blood Culture - Preliminary Blood No Growth after 96 hours Assessment and Plan Plan: 1 perforated gastric ulcer, ischemic colon at the splenic flexure with bowel obstruction status post exploratory laparotomy, lysis of adhesions, repair of gastric ulcer, transverse colectomy and takedown of the splenic flexure. Continue fluconazole, Flagyl IV, Zosyn IV. Dr. Benedict consult appreciated. Currently nothing by mouth until surgery would initiate feedings, TPN is maintained 2. Hypovolemic shock status post IV fluid resuscitation and vasopressors. Patient is currently on norepinephrine and vasopressin weaned., High output on CHAVEZ drain, 2 L over the past 24 hours 3. Acute on chronic hypoxic respiratory failure secondary to above. Patient is currently intubated and on mechanical ventilation. Patient is managed by Dr. Red. 4. Acute kidney injury secondary to shock improved,. Continue IV fluids and off vasopressors, continue to monitor closely 5. Diastolic CHF with failure 6. Paroxysmal atrial fibrillation with A. fib RVR, currently rate controlled. Eliquis is on hold. Continue IV heparin, on Cardizem drip for rate control Patient is status post Kcentra for reversal of eliquis. Patient is status post IV amiodarone. 7. Chronic diastolic heart failure, stable. 8. Severe COPD, stable. 9. Obstructive sleep apnea with CPAP, noncompliance. 10. Mild intermittent asthma, stable. 13. Diabetes mellitus type 2. Continue NovoLog scale every 6 hours. Hold metformin and Januvia. 11. Hyperlipidemia. 12 Lactic acidosis. 13. Chronic hypoxic hypoxemic rest or 4 years, maintained on 2 L O2 outpatient 14. Gastroesophageal reflux disease and GI prophylaxis. Continue Protonix 40 mg IV daily. 15. Severe protein calorie malnutrition due to nothing by mouth status. Patient on TPN Discharge plan: To be determined. Most likely subacute rehab.
[2018-09-20] MEDS: SODIUM CHLORIDE 0.9% 1,000 ML IV SCH (20:35)
[2018-09-20] MEDS: HEPARIN SODIUM,PORCINE 5,000 UNIT/ML 1 ML VIAL IV PRN (20:42)
[2018-09-20] MEDS: HEPARIN SOD,PORK IN 0.45% NACL 25,000 UNIT in 0.45% NACL 1 250ML.BAG IV SCH (20:43)
[2018-09-20] MEDS: MVI, ADULT NO.4 WITH VIT K 10 ML, TRACE (CONC-1ML/DOSE) 1 ML, SODIUM ACETATE 30 MEQ, PO... IV SCH ×7 (21:30)
[2018-09-20 23:48] LABS: Glucose,Whole Blood 180 mg/dL (75-99)
[2018-09-21] MEDS: metroNIDAZOLE-NS PMX 500 MG in SALINE 1 100ML.BAG IVPB SCH ×4 (00:10→23:03)
[2018-09-21] MEDS: PIPERACILLIN-TAZOBACTAM 3.375 GM in SODIUM CHLORIDE 0.9% 100 ML IVPB SCH ×4 (00:10→23:03)
[2018-09-21] MEDS: HYDROCORTISONE SUCCINATE 100 MG/2 ML VIAL IV SCH ×4 (00:10→23:02)
[2018-09-21] MEDS: INSULIN ASPART (NovoLOG) 100 UNIT/ML VIAL SQ SCH ×5 (00:11→23:33)
[2018-09-21] MEDS: DILTIAZEM 125 MG in SODIUM CHLORIDE 0.9% 100 ML IV SCH ×2 (01:02→23:21)
[2018-09-21] MEDS: PROPOFOL 1,000 MG in EMPTY BAG 1 BAG IV SCH ×9 (01:09→23:03)
[2018-09-21] MEDS: IPRATROPIUM-ALBUTEROL 3 ML NEB INHALATION SCH ×6 (03:24→23:19)
[2018-09-21 03:42] LABS: Anisocytosis Slight; HCT 30.4 % (39.0-53.0); HGB 8.1 gm/dL (13.0-17.5); Hypochromasia Marked; MCH 18.5 pg (25.0-35.0); MCHC 26.6 g/dL (31.0-37.0); MCV 69.5 fL (80.0-100.0); Mean Platelet Volume 6.8; Microcytosis Marked; Platelet Count 377 k/uL (150-450); Poikilocytosis Marked; RBC 4.38 m/uL (4.30-5.90); WBC 9.6 k/uL (3.8-10.6)
[2018-09-21 04:47] LABS: ABG Base Excess -2.6 mmol/L; ABG HCO3 22 mmol/L (21-25); ABG PCO2 35 mmHg (35-45); ABG PO2 67 mmHg (83-108); ABG TCO2 23 mmol/L (19-24); Allen Test Performed? no
[2018-09-21 04:49] LABS: African American GFR (CKD) >90 (>60 ml/min/1.73 sqM); Anion Gap 8 mmol/L; Blood Urea Nitrogen 26 mg/dL (9-20); Calcium 7.7 mg/dL (8.4-10.2); Carbon Dioxide 21 mmol/L (22-30); Chloride 119 mmol/L (98-107); Glucose 176 mg/dL (74-99); Magnesium 2.6 mg/dL (1.6-2.3); Phosphorus 3.2 mg/dL (2.5-4.5); Potassium 3.5 mmol/L (3.5-5.1); Sodium 148 mmol/L (137-145)
[2018-09-21] MEDS ORDERED: Potassium Replacement Protocol 1 EACH MISC MISCELLANE PRN (05:17)
[2018-09-21 06:08] LABS: Glucose,Whole Blood 179 mg/dL (75-99)
[2018-09-21] MEDS: SODIUM CHLORIDE 0.9% 50 ML with VASOPRESSIN 20 UNIT IVPB SCH ×4 (06:20→20:06)
[2018-09-21] MEDS: POTASSIUM CHLORIDE 10 MEQ in WATER FOR INJECTION 1 100ML.BAG IVPB SCH ×4 (06:24→12:11)
--- NOTE | 2018-09-21 07:18 | XR ---
EXAMINATION TYPE: XR chest 1V portable DATE OF EXAM: 09/21/2018 HISTORY: Tube placement. REFERENCE: Previous study dated 09/20/2018. FINDINGS: The patient is ET tube, NG tube and right internal jugular catheter remain in place, unchan ged in appearance. The heart is enlarged. There is mild improvement in the amount of vascular congestion. There continue s to be pulmonary edema. There is bibasilar airspace disease which may have worsened slightly. There are bilateral effusions. IMPRESSION: MAY BE SLIGHT IMPROVEMENT IN THE DEGREE OF CONGESTIVE HEART FAILURE.
[2018-09-21] MEDS: CHLORHEXIDINE GLUCONATE 15 ML CUP MUCOUS MEM SCH ×2 (08:32→20:06)
[2018-09-21] MEDS: PANTOPRAZOLE 40 MG/10 ML VIAL IVP SCH (08:33)
--- NOTE | 2018-09-21 09:30 | P.PN ---
Subjective Progress Note Date: 09/21/18 Principal diagnosis: Perforated ulcer Patient was stable overnight. Diprivan is currently on hold for possible weaning today. Pressors had been off. Continuing to diurese. Nasogastric tube remains bilious. CHAVEZ drain remains serous. Degree of serous fluid from the CHAVEZ drain is less than over the previous 24 hours. White blood cell count 9.6. Hemoglobin 8.1. Objective - Vital Signs Vital signs: Vital Signs Temp 97.6 F 09/21/18 08:00 Pulse 102 H 09/21/18 08:00 Resp 32 H 09/21/18 08:00 BP 126/74 09/21/18 08:00 Pulse Ox 97 09/21/18 08:00 Intake & Output 09/20/18 09/21/18 09/21/18 18:59 06:59 18:59 Intake Total 2482.425 1964.176 497.345 Output Total 3170 2610 405 Balance -687.575 -645.824 92.345 Weight 158.8 kg Intake: IV 1081 434 364 Fluconazole in NaCl,Iso- 100 100 Osm 200 mg In Saline 1 100ml.bag @ 100 mls/hr IVPB DAILY [facility] Rx#: [id number] Mvi, Adult No.4 with Vit 265 K 10 ml Trace (Conc-1Ml/ Dose) 1 ml In Amino Acid 5%-D15w+Lytes*E* 1,000 ml @ 30 mls/hr IV .Q24H [facility] Rx#:[id number] Mvi, Adult No.4 with Vit 55 K 10 ml Trace (Conc-1Ml/ Dose) 1 ml Sodium Acetate 30 meq Potassium Chloride 20 meq Calcium Gluconate 1 gm Potassium Phosphate 15 mmol In Amino Acid 5%-D15w 1,000 ml @ 55 mls/hr IV .Q19H7M [facility] Rx#:[id number] Mvi, Adult No.4 with Vit 330 165 K 10 ml Trace (Conc-1Ml/ Dose) 1 ml Sodium Acetate 30 meq Potassium Chloride 20 meq Calcium Gluconate 1 gm Sodium Phosphate 15 mmol In Amino Acid 5%-D15w 1,000 ml @ 55 mls/hr IV .Q19H7M [facility] Rx#:[id number] Piperacillin-Tazobactam 3 100 100 100 .375 gm In Sodium Chloride 0.9% 100 ml @ 25 mls/hr IVPB Q8HR [facility] Rx# :[id number] Potassium Chloride 10 meq 100 In Water For Injection 1 100ml.bag @ 100 mls/hr IVPB Q1HR [facility] Rx#: [id number] Pressure Bag 36 69 9 Sodium Chloride 0.9% 1, 150 000 ml @ 150 mls/hr IV . Q6H40M [facility] Rx#:[id number] metroNIDAZOLE-NS PMX 500 100 100 mg In Saline 1 100ml.bag @ 100 mls/hr IVPB Q8HR [facility] Rx#:[id number] Intake, IV Titration 8203.598 5577.176 133.345 Amount Diltiazem 125 mg In 8 117 Sodium Chloride 0.9% 100 ml @ 5 MG/HR 5 mls/hr IV .Q24H [facility] Rx#:[id number] Heparin Sod,Pork in 0.45% 46.909 0.327 NaCl 25,000 unit In 0.45 % NaCl 1 250ml.bag @ 6.1 UNITS/KG/HR 9.998 mls/hr IV .Q24H [facility] Rx#: [id number] Mvi, Adult No.4 with Vit 1051 495 55 K 10 ml Trace (Conc-1Ml/ Dose) 1 ml Sodium Acetate 30 meq Potassium Chloride 20 meq Calcium Gluconate 1 gm Sodium Phosphate 15 mmol In Amino Acid 5%-D15w 1,000 ml @ 55 mls/hr IV .Q19H7M [facility] Rx#:[id number] Norepinephrine 8 mg In 0 122.931 4.353 Sodium Chloride 0.9% 250 ml @ 0.05 MCG/KG/MIN 14. 35 mls/hr IV .[id number] [facility] Rx#:[id number] Potassium Chloride 10 meq 100 In Water For Injection 1 100ml.bag @ 100 mls/hr IVPB Q1HR [facility] Rx#: [id number] Propofol 1,000 mg In 295.516 554.918 53.992 Empty Bag 1 bag @ Titrate IV .Q0M [facility] Rx#: [id number] Sodium Chloride 0.9% 1, 140 20 000 ml @ 20 mls/hr IV . Q24H [facility] Rx#:[id number] Output: Gastric Drainage 100 Drainage 1100 245 Abdomen 1100 245 Urine 2070 2265 405 Other: Voiding Method Indwelling Catheter Indwelling Catheter Indwelling Catheter ABP, PAP, CO, CI - Last Documented Arterial Blood Pressure 123/65 - Exam Abdomen: Soft, mild distention, wound clean, CHAVEZ serous, mild tenderness - Labs CBC & Chem 7: 09/21/18 03:25 09/21/18 03:25 Labs: Abnormal Lab Results - Last 24 Hours (Table) 09/20/18 09/20/18 09/20/18 Range/Units 11:52 19:10 19:13 Hgb (13.0-17.5) gm/dL Hct (39.0-53.0) % MCV (80.0-100.0) fL MCH (25.0-35.0) pg MCHC (31.0-37.0) g/dL RDW (11.5-15.5) % APTT 41.1 H (22.0-30.0) sec ABG pO2 (83-108) mmHg Sodium (137-145) mmol/L Chloride (98-107) mmol/L Carbon Dioxide (22-30) mmol/L BUN (9-20) mg/dL Glucose (74-99) mg/dL POC Glucose (mg/dL) 170 H 193 H (75-99) mg/dL Calcium (8.4-10.2) mg/dL Magnesium (1.6-2.3) mg/dL 09/20/18 09/21/18 09/21/18 Range/Units 23:46 03:25 03:25 Hgb (13.0-17.5) gm/dL Hct (39.0-53.0) % MCV (80.0-100.0) fL MCH (25.0-35.0) pg MCHC (31.0-37.0) g/dL RDW (11.5-15.5) % APTT 57.0 H (22.0-30.0) sec ABG pO2 (83-108) mmHg Sodium 148 H (137-145) mmol/L Chloride 119 H (98-107) mmol/L Carbon Dioxide 21 L (22-30) mmol/L BUN 26 H (9-20) mg/dL Glucose 176 H (74-99) mg/dL POC Glucose (mg/dL) 180 H (75-99) mg/dL Calcium 7.7 L (8.4-10.2) mg/dL Magnesium 2.6 H (1.6-2.3) mg/dL 09/21/18 09/21/18 09/21/18 Range/Units 03:25 04:39 06:07 Hgb 8.1 L (13.0-17.5) gm/dL Hct 30.4 L (39.0-53.0) % MCV 69.5 L (80.0-100.0) fL MCH 18.5 L (25.0-35.0) pg MCHC 26.6 L (31.0-37.0) g/dL RDW 20.0 H (11.5-15.5) % APTT (22.0-30.0) sec ABG pO2 67 L (83-108) mmHg Sodium (137-145) mmol/L Chloride (98-107) mmol/L Carbon Dioxide (22-30) mmol/L BUN (9-20) mg/dL Glucose (74-99) mg/dL POC Glucose (mg/dL) 179 H (75-99) mg/dL Calcium (8.4-10.2) mg/dL Magnesium (1.6-2.3) mg/dL Microbiology - Last 24 Hours (Table) 09/16/18 14:25 Blood Culture - Preliminary Blood No Growth after 96 hours Assessment and Plan (1) Perforated viscus Narrative/Plan: Continue IV antibiotics. Weaning from ventilator per pulmonary. Continue diuresis. Continue nothing by mouth. Nasogastric tube to suction. Continue TPN. Current Visit: Yes Status: Acute Code(s): R19.8 - OTH SYMPTOMS AND SIGNS INVOLVING THE DGSTV SYS AND ABDOMEN SNOMED Code(s): 377447373
[2018-09-21] MEDS: FLUCONAZOLE IN NACL,ISO-OSM 200 MG in SALINE 1 100ML.BAG IVPB SCH (09:34)
[2018-09-21] MEDS ORDERED: FUROSEMIDE 10 MG/ML 4 ML VIAL IV STA (09:49)
--- NOTE | 2018-09-21 10:27 | P.PN ---
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 The patient presented yesterday to the emergency department with extreme abdominal pain. The patient was apparently a constipated for a week and he was doing enemas at home. He ultimately felt a pop in the lower portion of his abdomen on the day of the presentation and he came in with severe abdominal pain. He was having emesis. CAT scan of the abdomen was done in the emergency department the patient was found to have no apparent 20. The patient had abdominal distention and his abdominal size was twice the normal. His blood pressure was in the low 90s. He was tachycardic with a heart rate in the 1:30. He was given IV fluids. He was given IV Zosyn. Blood cultures were sent. He was seen by general surgery and the patient was taken to the operating room, and the patient was found to have perforated gastric ulcer, ischemic colon at the site of the splen ic flexure of bowel obstruction. The patient underwent expiratory laparotomy, lysis of adhesions, decompression of the colon and small bowel, transverse colectomy and takedown of the splenic flexure and repair of the gastric ulcer. Estimated blood loss is only 100 mL. The patient overnight was brought into the intensive care unit. The patient was resuscitated aggressively with IV fluids. He was given colloids and crystalloids. He is given 8 L of IV fluids. He was started on pressors and currently norepinephrine infusion is running at 62 g per minute. The patient was also started on physiologic dose vasopressin at 0.03 units per minute. Currently is on propofol at 14 mics for sedation. He is receiving normal saline at the rate of 150 mL an hour. Urine output is in order of 20-30 mL an hour. He is warm. His temperature was 100.5. He is on a mechanical ventilator. He is on assist-control mode of ventilation with a tidal volume of 550 at the rate of 26 with an FiO2 of 80% and a PEEP of 5. Blood gases from this morning shows a pH of 7.315 with a pCO2 of 40 and pO2 of 134. His echocardiogram from previous admissions showed an ejection fraction of 55- 60%. He had a preserved LV function. No significant valvular abnormalities. Pulmonary to pressure estimated to be 44. His cardiac rhythm is currently sinus. The patient has a CHAVEZ drain in his abdomen and this is on the right side and output is around 80-90 mL of serous material. He also has a colostomy and the site is nonfunctioning it seems to be viable at this point. Note that the patient was in the hospital and he was discharged home on 09/12/2018 after being treated for a flutter/failure with rapid ventricular response and shortness of breath and acute diastolic heart failure. Upon discharge, the patient was started on amiodarone thousand milligrams twice a day, Eliquis, Aldactone, and he was given Augmentin on outpatient basis and a prednisone burst taper. He was discharged home on a 40 mg of prednisone. On today's evaluation of 09/18/2018, the patient is postop day #2. The patient is still sedated with propofol at 35 g per KG per minute. The patient is was sedated and calm and comfortable on a mechanical ventilator essentially on the same vent setting with a tidal volume of 550 and FiO2 of 50% with a PEEP of 5 and a respiratory rate of 26. The morning blood gases showed a pH of 7.36 with a pCO2 of 33 and pO2 of 109 and this was done and FiO2 of 50%. Chest x-ray showing cardiomegaly and some mild pulmonary vascular congestion. ET tube is in a good location. The patient has no significant rest or secretions. Hemodynamically, the patient has been aggressively resuscitated IV fluids. The patient is currently on normal saline the rate of 150 mL an hour. The patient is producing more than 50 mL an hour of urine output. The patient is still requiring pressors. The patient is on physiologic dose vasopressin. The patient is also on norepinephrine infusion which is currently running at 21 g per minute. The patient is afebrile. The patient is nothing by mouth. The p atient has bowel sounds and the patient has also has a colostomy in place. NG tube is in place output has been around 200 mL over the past 8 hours. Earlier this morning, the patient was seen to be in tachycardia. A 12-lead EKG was done and the rhythm is essentially undetermined. This is most likely supraventricular rhythm, A. fib versus flutter. SCDs felt to be less likely. A. fib is favored nontender the patient has had previous history of atrial fibrillation. This has not affected the patient's overall hemodynamics and blood pressure control. The white cell count is at 9.6. Hemoglobin was 8.5. The patient continues to be in acute kidney failure. Creatinine is up to 1.80 is stable compared to yesterday. On today's evaluation of 09/19/2018 the patient is postop day #3. On today's evaluation that has been further progress and the patient's blood pressure. Currently is only on 5 mics of norepinephrine infusion the patient is also on vasopressin physiologic dose. There has been considerable improvement in the pressor requirements over the past 24-48 hours. He is still producing more than 100 mL of urine output. Afebrile. Still intubated on a mechanical ventilator. Vent settings are essentially unchanged compared to yesterday with a tidal volume of 550 FiO2 of 50% with a PEEP of 5 and the respiratory rate of 26. Blood gases from today showed a pH of 7.36 with a pCO2 of 35 and pO2 of 121 and this was done and FiO2 of 50%. The patient is was arrested on propofol which is running at 40 mics. Chest x-ray from today shows bilateral pleural effusion and ET tube is in a good location. The patient has positive bowel sounds. The patient is producing some stool activity in his colostomy bag. The CHAVEZ drain output is minimal. NG tube output is minimal. The patient is still on broad- spectrum antibiotic coverage. Cultures from the abdominal wound have been all negative. White cell count is not elevated. Hemoglobin stable at 7.8. Family is at the bedside. As far as atrial fibrillation, the patient was bolused with amiodarone and following that the patient was maintained at a lower heart rate yet still in atrial fibrillation. No anticoagulants for now. The function is improving and the creatinine is down to 1.2. On 09/20/2018 patient is postop day #4. The patient is sedated this morning. The patient is off pressors and norepinephrine infusion and vasopressin has been discontinued. Urine output is excellent. We have noted increased in output from the CHAVEZ drain which has put out approximately 400 mL over the past few hours. Meanwhile the, surgical wound site is dry clean and intact. The patient has a functional colostomy and there is stool output in the colostomy bag. The patient remains on a mechanical ventilator. Vent settings are essentially unchanged. The patient had a blood gases this morning that showed a pH of 7.4 with a pCO2 of 34 and pO2 of 76. The patient had a chest x-ray that showed vascular congestion and edema and bilateral pleural effusions. The patient is on TPN for nutritional support. IV fluids have been cut down to KVO. He is on propofol for sedation. Elisha output is minimal at this point in time. No fever. No chills. Sedation holiday was given yesterday at the patient was not ready for any weaning. The same will be done today. Meanwhile, the patient is still in atrial fibrillation. The patient was taken off the amiodarone drip. The patient was started in IV heparin. Cardizem drip will be started today for rate control. The patient is afebrile. Renal function is normalized and the creatinine is down to 1.02. On 09/21/2018 patient is postop day #5. Sedation holiday was given. The patient woke up appropriately. Unable to give me good weaning parameters. Given a showed spontaneous breathing trial and he feels that the patient became tachypneic tachycardic and the trial was discontinued. He is back on assist control mode of ventilation. Chest x-ray showing pulmonary vessel congestion/edema. The patient is a negative fluid balance of 1.3 L and the patient is producing excellent urine output. His dose of Lasix will be given to augment the urine output and establish a better negative fluid balance over the next 24 hours. Otherwise, he started on TPN for nutritional support. He is on a Cardizem drip for rate control. He is in atrial fibrillation. He is on IV heparin. He is afebrile. He is on broad-spectrum antibiotics. The ostomy is viable and there is stool within the bag. Discussed the case with general surgery and no plans for feeding at this point in time. A barium swallow needs to be done later stage to make sure there is no bowel leak. Objective - Vital Signs Vital signs: Vital Signs Temp 97.6 F 09/21/18 08:00 Pulse 122 H 09/21/18 10:00 Resp 17 09/21/18 10:00 BP 133/89 09/21/18 10:00 Pulse Ox 95 09/21/18 10:00 Intake & Output 09/20/18 09/21/18 09/21/18 18:59 06:59 18:59 Intake Total 2482.425 1964.176 568.843 Output Total 3170 2610 455 Balance -687.575 -645.824 113.843 Weight 158.8 kg Intake: IV 1081 434 422 Fluconazole in NaCl,Iso- 100 100 Osm 200 mg In Saline 1 100ml.bag @ 100 mls/hr IVPB DAILY [facility] Rx#: [id number] Mvi, Adult No.4 with Vit 265 K 10 ml Trace (Conc-1Ml/ Dose) 1 ml In Amino Acid 5%-D15w+Lytes*E* 1,000 ml @ 30 mls/hr IV .Q24H [facility] Rx#:[id number] Mvi, Adult No.4 with Vit 110 K 10 ml Trace (Conc-1Ml/ Dose) 1 ml Sodium Acetate 30 meq Potassium Chloride 20 meq Calcium Gluconate 1 gm Potassium Phosphate 15 mmol In Amino Acid 5%-D15w 1,000 ml @ 55 mls/hr IV .Q19H7M [facility] Rx#:[id number] Mvi, Adult No.4 with Vit 330 165 K 10 ml Trace (Conc-1Ml/ Dose) 1 ml Sodium Acetate 30 meq Potassium Chloride 20 meq Calcium Gluconate 1 gm Sodium Phosphate 15 mmol In Amino Acid 5%-D15w 1,000 ml @ 55 mls/hr IV .Q19H7M [facility] Rx#:[id number] Piperacillin-Tazobactam 3 100 100 100 .375 gm In Sodium Chloride 0.9% 100 ml @ 25 mls/hr IVPB Q8HR [facility] Rx# :[id number] Potassium Chloride 10 meq 100 In Water For Injection 1 100ml.bag @ 100 mls/hr IVPB Q1HR [facility] Rx#: [id number] Pressure Bag 36 69 12 Sodium Chloride 0.9% 1, 150 000 ml @ 150 mls/hr IV . Q6H40M [facility] Rx#:[id number] metroNIDAZOLE-NS PMX 500 100 100 mg In Saline 1 100ml.bag @ 100 mls/hr IVPB Q8HR [facility] Rx#:[id number] Intake, IV Titration 0411.414 2791.176 146.843 Amount Diltiazem 125 mg In 8 117 Sodium Chloride 0.9% 100 ml @ 5 MG/HR 5 mls/hr IV .Q24H [facility] Rx#:[id number] Heparin Sod,Pork in 0.45% 46.909 0.327 NaCl 25,000 unit In 0.45 % NaCl 1 250ml.bag @ 6.1 UNITS/KG/HR 9.998 mls/hr IV .Q24H [facility] Rx#: [id number] Mvi, Adult No.4 with Vit 1051 495 55 K 10 ml Trace (Conc-1Ml/ Dose) 1 ml Sodium Acetate 30 meq Potassium Chloride 20 meq Calcium Gluconate 1 gm Sodium Phosphate 15 mmol In Amino Acid 5%-D15w 1,000 ml @ 55 mls/hr IV .Q19H7M [facility] Rx#:[id number] Norepinephrine 8 mg In 0 122.931 4.353 Sodium Chloride 0.9% 250 ml @ 0.05 MCG/KG/MIN 14. 35 mls/hr IV .[id number] [facility] Rx#:[id number] Potassium Chloride 10 meq 100 In Water For Injection 1 100ml.bag @ 100 mls/hr IVPB Q1HR [facility] Rx#: [id number] Propofol 1,000 mg In 295.516 554.918 67.490 Empty Bag 1 bag @ Titrate IV .Q0M [facility] Rx#: [id number] Sodium Chloride 0.9% 1, 140 20 000 ml @ 20 mls/hr IV . Q24H [facility] Rx#:[id number] Output: Gastric Drainage 100 Drainage 1100 245 Abdomen 1100 245 Urine 2070 2265 455 Other: Voiding Method Indwelling Catheter Indwelling Catheter Indwelling Catheter ABP, PAP, CO, CI - Last Documented Arterial Blood Pressure 155/73 - Exam Gen. appearance the patient is obese, comfortable likely distress intubated on a mechanical ventilator orogastric and orotracheal tube are both in place Head exam was generally normal. There was no scleral icterus or corneal arcus. Mucous membranes were moist. Neck was supple and without jugular venous distension, thyromegaly, or carotid bruits. Carotids were easily palpable bilaterally. There was no adenopathy. Lungs sounds are diminished bilaterally along with scattered rhonchi and scattered expiratory wheezes on the lung lopez bilaterally. Heart sounds are non-tachycardic, positive S1-S2, regular, no cervical murmurs appreciated Abdomen is distended soft. There is minimal direct tenderness. There is a colostomy in the left upper quadrant area. The colostomy site seems to be viable with healthy tissue and that is no output in the colostomy bag. There is a large mid abdominal incision which is dry clean and intact. Bowel sounds are absent. There is no abdominal distention. There is also a CHAVEZ drain with serous material collecting in the container. Extremities show diminished pulses bilaterally especially lower extremities. No cyanosis. No clubbing. There is worsening edema in upper and lower extremities due to aggressive fluid resuscitation and third spacing. Examination of the skin revealed no evidence of significant rashes, suspicious appearing nevi or other concerning lesions. Neurologically sedated and the patient grimaces to painful stimulation in all 4 extremities. - Labs CBC & Chem 7: 09/21/18 03:25 09/21/18 03:25 Labs: Abnormal Lab Results - Last 24 Hours (Table) 09/20/18 09/20/18 09/20/18 Range/Units 11:52 19:10 19:13 Hgb (13.0-17.5) gm/dL Hct (39.0-53.0) % MCV (80.0-100.0) fL MCH (25.0-35.0) pg MCHC (31.0-37.0) g/dL RDW (11.5-15.5) % APTT 41.1 H (22.0-30.0) sec ABG pO2 (83-108) mmHg Sodium (137-145) mmol/L Chloride (98-107) mmol/L Carbon Dioxide (22-30) mmol/L BUN (9-20) mg/dL Glucose (74-99) mg/dL POC Glucose (mg/dL) 170 H 193 H (75-99) mg/dL Calcium (8.4-10.2) mg/dL Magnesium (1.6-2.3) mg/dL 09/20/18 09/21/18 09/21/18 Range/Units 23:46 03:25 03:25 Hgb (13.0-17.5) gm/dL Hct (39.0-53.0) % MCV (80.0-100.0) fL MCH (25.0-35.0) pg MCHC (31.0-37.0) g/dL RDW (11.5-15.5) % APTT 57.0 H (22.0-30.0) sec ABG pO2 (83-108) mmHg Sodium 148 H (137-145) mmol/L Chloride 119 H (98-107) mmol/L Carbon Dioxide 21 L (22-30) mmol/L BUN 26 H (9-20) mg/dL Glucose 176 H (74-99) mg/dL POC Glucose (mg/dL) 180 H (75-99) mg/dL Calcium 7.7 L (8.4-10.2) mg/dL Magnesium 2.6 H (1.6-2.3) mg/dL 09/21/18 09/21/18 09/21/18 Range/Units 03:25 04:39 06:07 Hgb 8.1 L (13.0-17.5) gm/dL Hct 30.4 L (39.0-53.0) % MCV 69.5 L (80.0-100.0) fL MCH 18.5 L (25.0-35.0) pg MCHC 26.6 L (31.0-37.0) g/dL RDW 20.0 H (11.5-15.5) % APTT (22.0-30.0) sec ABG pO2 67 L (83-108) mmHg Sodium (137-145) mmol/L Chloride (98-107) mmol/L Carbon Dioxide (22-30) mmol/L BUN (9-20) mg/dL Glucose (74-99) mg/dL POC Glucose (mg/dL) 179 H (75-99) mg/dL Calcium (8.4-10.2) mg/dL Magnesium (1.6-2.3) mg/dL Microbiology - Last 24 Hours (Table) 09/16/18 14:25 Blood Culture - Preliminary Blood No Growth after 96 hours Assessment and Plan Plan: 1 perforated gastric ulcer/ischemic colon at the level of splenic fracture with bowel obstruction. The patient is post expiratory laparotomy, lysis of adhesions, repair of a gastric ulcer, transfers colectomy with takedown of splenic flexure and decompression of the colon and small bowel. The patient is postop day #5. 2 shock with profound hypotension, and the patient has been aggressively resuscitated IV fluids and pressors. The patient recovered from a septic shock and the patient is currently off pressors maintaining his own blood pressure without any major difficulties. He has a neck that urine output. 3 acute hypoxic respiratory failure secondary to above, currently intubated on a mechanical ventilator, chest x-ray showing bilateral pleural effusion /edema 4 acute kidney injury secondary to above, recovered 5 mild lactic acidosis lactic acid level is down to 2.8 6 history of paroxysmal atrial fibrillation with a recent admission to the hospital because of A. fib/flutter with RVR current rhythm is sinus. The patient is back on IV heparin. Cardizem drip will be used for rate control 7 COPD 8 bronchial asthma 9 CHF with diastolic heart failure 10 obstructive sleep apnea noncompliant with CPAP therapy 11 recent hospitalization for select of the abdominal wall, was receiving Augmentin an outpatient basis 12 diabetes mellitus type 2 13 chronic hypoxic respiratory failure with an oxygen at 2 L per minute nasal cannula on outpatient basis 14 noncompliance with medication and medical treatment in general Plan Given a sedation holiday. Appropriate mentation. Still unable to give a good spontaneous breathing trial. Weaning parameters are poor. We'll give Lasix 40 mg IV. The patient is already making a good urine output and he is in a negative fluid balance. We'll diabetes and over the next 24 hours and repeat the same process. He is a obese amari with a BMI of 48. A small lung volumes. He has interstitial edema pleural effusions. His abdomen is large and somewhat distended and he has significant third spacing. Optimizing the fluid balance should help us with the weaning process. Continue TPN. Continue antibiotics. No other changes from my standpoint. General surgeries on the case. Blood gas was reviewed. Chest x-ray was reviewed. We'll follow. This evaluation was done and more than 30 minutes. Family was updated on the condition. Time with Patient: Greater than 30
[2018-09-21 12:21] LABS: Glucose,Whole Blood 179 mg/dL (75-99)
--- NOTE | 2018-09-21 13:03 | PN ---
PROGRESS NOTE DATE OF SERVICE: 09/20/2018. REASON FOR FOLLOWUP VISIT: Abdominal sepsis. INTERVAL HISTORY: The patient is currently afebrile. The patient overall pressor requirement has decreased to few mcg of Levophed. The patient remains to be sedated, intubated on the vent. The FiO2 is stable at 40%. EXAMINATION: Blood pressure 133/89 with a pulse of 102, temperature of 98. He is 95% on 40% FiO2. General description is an elderly male lying in bed in no distress. RESPIRATORY SYSTEM: Unlabored breathing. Decreased breath sounds at the bases. HEART: S1, S2. Regular rate. ABDOMEN: Slightly distended. No guarding or rigidity. LABS: Hemoglobin 7.4, white count 7.6, BUN of 33, creatinine 1.02. Blood cultures have been negative. DIAGNOSTIC IMPRESSION AND PLAN: Patient with abdominal sepsis in this patient who did have perforated peptic ulcer as well as mixed infection of the colon status post extensive surgery. Patient is currently covered with Zosyn and that will be continued. White count is normal. Afebrile. Will monitor clinical course closely. Continue supportive care. MMODL / IJN: [id number] /
--- NOTE | 2018-09-21 17:28 | P.PN ---
Subjective Progress Note Date: 09/21/18 This is a 72-year-old male patient of Dr. Cevallos with past history of chronic hypoxic respiratory failure on home O2 obstructive sleep apnea on CPAP, paroxysmal atrial fibrillation, chronic diastolic heart failure, severe COPD, morbid obesity with BMI of 47, hypertension hypertensive cardiovascular disease, mild intermittent asthma, hyperlipidemia, gastroesophageal reflux disease, diabetes mellitus type 2, cellulitis of the abdominal wall. Patient was recently hospitalized and discharged home on September 12 and treated for acute diastolic heart failure, atrial flutter/atrial fibrillation with rapid ventricular response status post MIKE which found a small atrial appendage thrombus. The patient was stabilized and discharged home in stable condition and had been started on amiodarone, eliquis, Aldactone, prednisone and Augmentin. Patient presented to [facility] emergency center for evaluation. He was afebrile, heart rate 130s, blood pressure 119/79, pulse ox 95%. White count was 5.9, hemoglobin 10.6, platelet count 4-72. Sodium 133, potassium 5.4, chloride 96, CO2 20, BUN 36 and creatinine 1.6, blood sugar 178. CAT scan of the abdomen and pelvis revealed pneumoperitoneum. Bowel distention. Bowel ischemia not excluded. No clear obstruction. Findings may be due to ileus. Patient was provided IV fluids, pain medication and Zosyn patient was seen by Dr Sandor De Leon in the emergency center and taken to the OR found to have a perforated gastric ulcer, ischemic colon at the site of splenic flexure of the bowel obstruction. Patient underwent exploratory laparotomy, lysis of adhesions, decompression of the colon and small bowel, transverse colectomy and takedown of splenic flexure and repair of a gastric ulcer. Patient was then transferred to the intensive care unit and followed by Dr. Red. He is status post greater than 8 L of IV fluid and on norepinephrine and subsequent started on vasopressin. Urine output has been marginal patient remains intubated and on mechanical ventilation with tidal volume 550, FiO2 of 50% and PEEP of 5. The patient is on sedation. 09/18: Patient remains in intensive care unit intubated and on mechanical addie tilation with tidal volume 550, FiO2 50, PEEP 5. NG tube with black drainage. He is on 22 mics of levo fed and 0.03 vasopressin. Patient was started on amiodarone due to continued A. fib with RVR. Heart rate is in the 140s, blood pressure systolic 99. A.m. lab work white count 9.6, hemoglobin 8.5, platelet count 368. Sodium 136, potassium 4.9, chloride 108, CO2 18, BUN 39 creatinine 1.81. Blood sugars are running between 141 and 161. Urine culture is in progress and blood culture is no growth at [address] Benedict is recommended continuing Zosyn and Diflucan. Son is at bedside and all questions have been answered. 09/19: Patient remains in the intensive care unit intubated and on mechanical ventilation with tidal volume 550, FiO2 40 and PEEP of 5. Norepinephrine is now down to 5 mics and minimal on vasopressin. Urine output has been more than adequate. He has been afebrile. He is continued on sedation with propofol. A sedation holiday was attempted today but patient became tachypneic. Patient is back on sedation with plan for tomorrow for sedation holiday tomorrow. Patient has had output from colostomy and passing gas and colostomy. Decreased output from NG tube and from CHAVEZ drain. WBC 8.6, hemoglobin 7.8. He has been afebrile, heart rate 99, blood pressure 90/63. TPN has been started. Amiodarone drip to be discontinued. monitoring coordinator is currently A. fib with controlled rate. 09/20 Patient remains in ICU, currently nothing by mouth, CHAVEZ drain has drained o naomi 2 L in 24 hours, patient has been off pressors, urine output is normal, patient is still on TPN, patient still has abdominal discomfort, otherwise no chest pain no shortness of breath, no palpitations. Hemoglobin currently at 7.4 from an admitting hemoglobin of 9.4, iron studies to be done, agent has initial myelocytes on admission, creatinine 1.02 from 1.2, surgical incision is dry, there is stool output in the colostomy bag, patient remains on mechanical ventilator, unchanged and settings. Followed closely by pulmonary medicine, Cardizem drip was initiated for atrial fibrillation. Attempt to be made with weaning ventilatory support in a.m. : Postop day #5, he was given sedation holiday today, and was able to follow verbal commands, unable to wean today secondary to parameters from Dr. Red, patient went back to assist control mode of ventilation, Lasix was given 401 dose for CHF, pulmonary edema, blood pressure remains stable, negative balance of 1.3 L, urine output is good, has decreased output on the CHAVEZ drain, small amount of mucus stools today, still diminished bowel sounds currently nothing by mouth, general surgery following closely, Objective - Vital Signs Vital signs: Vital Signs Temp 98.9 F 09/21/18 16:00 Pulse 107 H 09/21/18 17:00 Resp 26 H 09/21/18 17:00 BP 116/68 09/21/18 17:00 Pulse Ox 96 09/21/18 17:00 Intake & Output 09/20/18 09/21/18 09/21/18 18:59 06:59 18:59 Intake Total 2482.425 7788.781 3494.353 Output Total 3170 2610 3600 Balance -687.575 -645.824 -2134.647 Weight 158.8 kg Intake: IV 6904 870 2809 Fluconazole in NaCl,Iso- 100 100 Osm 200 mg In Saline 1 100ml.bag @ 100 mls/hr IVPB DAILY [facility] Rx#: [id number] Mvi, Adult No.4 with Vit 265 K 10 ml Trace (Conc-1Ml/ Dose) 1 ml In Amino Acid 5%-D15w+Lytes*E* 1,000 ml @ 30 mls/hr IV .Q24H [facility] Rx#:[id number] Mvi, Adult No.4 with Vit 550 K 10 ml Trace (Conc-1Ml/ Dose) 1 ml Sodium Acetate 30 meq Potassium Chloride 20 meq Calcium Gluconate 1 gm Potassium Phosphate 15 mmol In Amino Acid 5%-D15w 1,000 ml @ 55 mls/hr IV .Q19H7M [facility] Rx#:[id number] Mvi, Adult No.4 with Vit 330 165 K 10 ml Trace (Conc-1Ml/ Dose) 1 ml Sodium Acetate 30 meq Potassium Chloride 20 meq Calcium Gluconate 1 gm Sodium Phosphate 15 mmol In Amino Acid 5%-D15w 1,000 ml @ 55 mls/hr IV .Q19H7M [facility] Rx#:[id number] Piperacillin-Tazobactam 3 100 100 200 .375 gm In Sodium Chloride 0.9% 100 ml @ 25 mls/hr IVPB Q8HR [facility] Rx# :[id number] Potassium Chloride 10 meq 200 In Water For Injection 1 100ml.bag @ 100 mls/hr IVPB Q1HR [facility] Rx#: [id number] Pressure Bag 36 69 36 Sodium Chloride 0.9% 1, 150 000 ml @ 150 mls/hr IV . Q6H40M [facility] Rx#:[id number] metroNIDAZOLE-NS PMX 500 100 200 mg In Saline 1 100ml.bag @ 100 mls/hr IVPB Q8HR [facility] Rx#:[id number] Intake, IV Titration 5309.138 5563.176 279.353 Amount Diltiazem 125 mg In 8 117 Sodium Chloride 0.9% 100 ml @ 5 MG/HR 5 mls/hr IV .Q24H [facility] Rx#:[id number] Heparin Sod,Pork in 0.45% 46.909 0.327 NaCl 25,000 unit In 0.45 % NaCl 1 250ml.bag @ 6.1 UNITS/KG/HR 9.998 mls/hr IV .Q24H [facility] Rx#: [id number] Mvi, Adult No.4 with Vit 1051 495 55 K 10 ml Trace (Conc-1Ml/ Dose) 1 ml Sodium Acetate 30 meq Potassium Chloride 20 meq Calcium Gluconate 1 gm Sodium Phosphate 15 mmol In Amino Acid 5%-D15w 1,000 ml @ 55 mls/hr IV .Q19H7M [facility] Rx#:[id number] Norepinephrine 8 mg In 0 122.931 4.353 Sodium Chloride 0.9% 250 ml @ 0.05 MCG/KG/MIN 14. 35 mls/hr IV .Q63A47J [facility] Rx#:[id number] Potassium Chloride 10 meq 100 In Water For Injection 1 100ml.bag @ 100 mls/hr IVPB Q1HR [facility] Rx#: [id number] Propofol 1,000 mg In 295.516 554.918 200.000 Empty Bag 1 bag @ Titrate IV .Q0M [facility] Rx#: [id number] Sodium Chloride 0.9% 1, 140 20 000 ml @ 20 mls/hr IV . Q24H [facility] Rx#:[id number] Output: Gastric Drainage 100 Drainage 1100 245 725 Abdomen 1100 245 725 Urine 2070 2265 2855 Stool 20 Other: Voiding Method Indwelling Catheter Indwelling Catheter Indwelling Catheter ABP, PAP, CO, CI - Last Documented Arterial Blood Pressure 104/52 - Exam Sedated on vent - Respiratory Respiratory: bilateral: rhonchi, negative: wheezing, prolonged expiration, prolonged inspiration - Cardiovascular Rhythm: regular Heart sounds: normal: S1, S2 - Gastrointestinal General gastrointestinal: Present: absent bowel sounds, soft - Integumentary Integumentary: Present: normal - Neurologic Neurologic Comment(s): Sedated on vent - Labs CBC & Chem 7: 09/21/18 03:25 09/21/18 03:25 Labs: Abnormal Lab Results - Last 24 Hours (Table) 09/20/18 09/20/18 09/20/18 Range/Units 19:10 19:13 23:46 Hgb (13.0-17.5) gm/dL Hct (39.0-53.0) % MCV (80.0-100.0) fL MCH (25.0-35.0) pg MCHC (31.0-37.0) g/dL RDW (11.5-15.5) % APTT 41.1 H (22.0-30.0) sec ABG pO2 (83-108) mmHg Sodium (137-145) mmol/L Chloride (98-107) mmol/L Carbon Dioxide (22-30) mmol/L BUN (9-20) mg/dL Glucose (74-99) mg/dL POC Glucose (mg/dL) 193 H 180 H (75-99) mg/dL Calcium (8.4-10.2) mg/dL Magnesium (1.6-2.3) mg/dL 09/21/18 09/21/18 09/21/18 Range/Units 03:25 03:25 03:25 Hgb 8.1 L (13.0-17.5) gm/dL Hct 30.4 L (39.0-53.0) % MCV 69.5 L (80.0-100.0) fL MCH 18.5 L (25.0-35.0) pg MCHC 26.6 L (31.0-37.0) g/dL RDW 20.0 H (11.5-15.5) % APTT 57.0 H (22.0-30.0) sec ABG pO2 (83-108) mmHg Sodium 148 H (137-145) mmol/L Chloride 119 H (98-107) mmol/L Carbon Dioxide 21 L (22-30) mmol/L BUN 26 H (9-20) mg/dL Glucose 176 H (74-99) mg/dL POC Glucose (mg/dL) (75-99) mg/dL Calcium 7.7 L (8.4-10.2) mg/dL Magnesium 2.6 H (1.6-2.3) mg/dL 09/21/18 09/21/18 09/21/18 Range/Units 04:39 06:07 12:19 Hgb (13.0-17.5) gm/dL Hct (39.0-53.0) % MCV (80.0-100.0) fL MCH (25.0-35.0) pg MCHC (31.0-37.0) g/dL RDW (11.5-15.5) % APTT (22.0-30.0) sec ABG pO2 67 L (83-108) mmHg Sodium (137-145) mmol/L Chloride (98-107) mmol/L Carbon Dioxide (22-30) mmol/L BUN (9-20) mg/dL Glucose (74-99) mg/dL POC Glucose (mg/dL) 179 H 179 H (75-99) mg/dL Calcium (8.4-10.2) mg/dL Magnesium (1.6-2.3) mg/dL Microbiology - Last 24 Hours (Table) 09/16/18 14:25 Blood Culture - Preliminary Blood No Growth after 120 hours Assessment and Plan Plan: 1 postop day #5 for perforated gastric ulcer, ischemic colon at the splenic flexure with bowel obstruction status post exploratory laparotomy, lysis of adhesions, repair of gastric ulcer, transverse colectomy and takedown of the splenic flexure. Continue fluconazole, Flagyl IV, Zosyn IV. Dr. Benedict consult appreciated. Currently nothing by mouth until surgery would initiate feedings, TPN is maintained 2. Hypovolemic shock status post IV fluid resuscitation and vasopressors. Patient is currently on norepinephrine and vasopressin weaned., High output on CHAVEZ drain, 2 L over the past 24 hours 3. vent dependence rest or failure Acute on chronic hypoxic respiratory failure secondary to above. Patient is currently intubated and on mechanical ventilation. Failed weaning trial on September 21, attempt to the wean on Saturday. Patient is managed by Dr. Red. 4. Acute kidney injury secondary to shock improved,. Continue IV fluids and off vasopressors, continue to monitor closely 5. Diastolic CHF with failure , requires IV Lasix when necessary 6. Paroxysmal atrial fibrillation with A. fib RVR, currently rate controlled. Eliquis is on hold. Continue IV heparin, on Cardizem drip for rate control Patient is status post Kcentra for reversal of eliquis. Patient is status post IV amiodarone. 7. Chronic diastolic heart failure, stable. 8. Severe COPD, stable. 9. Obstructive sleep apnea with CPAP, noncompliance. 10. Mild intermittent asthma, stable. 13. Diabetes mellitus type 2. Continue NovoLog scale every 6 hours. Hold metformin and Januvia. 11. Hyperlipidemia. 12 Lactic acidosis. 13. Chronic hypoxic hypoxemic rest or 4 years, maintained on 2 L O2 outpatient 14. Gastroesophageal reflux disease and GI prophylaxis. Continue Protonix 40 mg IV daily. 15. Severe protein calorie malnutrition due to nothing by mouth status. Patient on TPN Discharge plan: To be determined. Most likely subacute rehab.
[2018-09-21] MEDS: HEPARIN SOD,PORK IN 0.45% NACL 25,000 UNIT in 0.45% NACL 1 250ML.BAG IV SCH (18:45)
[2018-09-21] MEDS: MVI, ADULT NO.4 WITH VIT K 10 ML, TRACE (CONC-1ML/DOSE) 1 ML, SODIUM ACETATE 30 MEQ, PO... IV SCH ×14 (18:56→20:04)
[2018-09-21 19:04] LABS: Glucose,Whole Blood 122 mg/dL (75-99)
[2018-09-21] MEDS: SODIUM CHLORIDE 0.9% 1,000 ML IV SCH (20:05)
--- NOTE | 2018-09-21 21:19 | PN ---
PROGRESS NOTE DATE OF SERVICE: 09/21/2018. REASON FOR FOLLOWUP: Abdominal sepsis from perforated gastric ulcer. INTERVAL HISTORY: The patient is currently afebrile. Patient is hemodynamically stable. Not on any pressor support. His FiO2 remains to be stable slowly being weaned off the vent. The patient apparently responding appropriately per the nursing staff. PHYSICAL EXAMINATION: Blood pressure 115/60 with a pulse of 107. Temperature 98.9. He is 96% on 40% FiO2. General description is an elderly male lying in bed in no distress. RESPIRATORY SYSTEM: Unlabored breathing. Decreased breath sounds. No wheeze. HEART: S1, S2. Regular rate and rhythm. ABDOMEN: Soft, no tenderness. LABS: Hemoglobin 8.1, white count 9.3, BUN of 26, creatinine 0.85. DIAGNOSTIC IMPRESSION AND PLAN: Patient with abdominal sepsis. This patient who did have a perforated gastric ulcer and ischemic splenic flexure. The patient at this time to be continued on Zosyn and Diflucan while watching clinical course closely. Continue supportive care. MMODL / IJN: [id number] /
[2018-09-21] MEDS: POTASSIUM CHLORIDE 20 MEQ in WATER FOR INJECTION 1 100ML.BAG IVPB SCH (23:00)
[2018-09-21 23:32] LABS: Glucose,Whole Blood 177 mg/dL (75-99)
[2018-09-22] MEDS: POTASSIUM CHLORIDE 20 MEQ in WATER FOR INJECTION 1 100ML.BAG IVPB SCH (01:00)
[2018-09-22] MEDS: NOREPINEPHRINE 8 MG in SODIUM CHLORIDE 0.9% 250 ML IV SCH ×2 (01:01→18:38)
[2018-09-22] MEDS: PROPOFOL 1,000 MG in EMPTY BAG 1 BAG IV SCH ×8 (01:30→22:51)
[2018-09-22] MEDS: IPRATROPIUM-ALBUTEROL 3 ML NEB INHALATION SCH ×6 (03:07→23:03)
[2018-09-22 04:12] LABS: Anisocytosis Slight; HCT 29.4 % (39.0-53.0); HGB 7.8 gm/dL (13.0-17.5); Hypochromasia Marked; MCH 18.5 pg (25.0-35.0); MCHC 26.7 g/dL (31.0-37.0); MCV 69.3 fL (80.0-100.0); Mean Platelet Volume 6.3; Microcytosis Marked; Platelet Count 372 k/uL (150-450); Poikilocytosis Moderate; RBC 4.24 m/uL (4.30-5.90); RDW 19.8 % (11.5-15.5); WBC 8.5 k/uL (3.8-10.6)
[2018-09-22 04:34] LABS: ABG Base Excess -1.1 mmol/L; ABG HCO3 23 mmol/L (21-25); ABG Oxygen Saturation 98.8 % (94-97); ABG PCO2 35 mmHg (35-45); ABG PH 7.43 (7.35-7.45); ABG PO2 89 mmHg (83-108); ABG TCO2 24 mmol/L (19-24); Allen Test Performed? Yes
[2018-09-22 04:52] LABS: African American GFR (CKD) >90 (>60 ml/min/1.73 sqM); Anion Gap 8 mmol/L; Blood Urea Nitrogen 29 mg/dL (9-20); Chloride 122 mmol/L (98-107); Magnesium 2.4 mg/dL (1.6-2.3)
[2018-09-22 05:02] LABS: Calcium 7.6 mg/dL (8.4-10.2); Carbon Dioxide 20 mmol/L (22-30); Glucose 177 mg/dL (74-99); Phosphorus 3.4 mg/dL (2.5-4.5); Potassium 3.9 mmol/L (3.5-5.1); Sodium 150 mmol/L (137-145)
[2018-09-22] MEDS: SODIUM CHLORIDE 0.9% 50 ML with VASOPRESSIN 20 UNIT IVPB SCH ×4 (06:08→17:44)
[2018-09-22] MEDS: HEPARIN SOD,PORK IN 0.45% NACL 25,000 UNIT in 0.45% NACL 1 250ML.BAG IV SCH ×2 (06:12→18:22)
[2018-09-22 06:48] LABS: Glucose,Whole Blood 167 mg/dL (75-99)
[2018-09-22] MEDS: POTASSIUM CHLORIDE 10 MEQ in WATER FOR INJECTION 1 100ML.BAG IVPB SCH ×2 (06:52→08:05)
[2018-09-22] MEDS: INSULIN ASPART (NovoLOG) 100 UNIT/ML VIAL SQ SCH ×4 (06:52→23:26)
--- NOTE | 2018-09-22 07:34 | XR ---
EXAMINATION TYPE: XR chest 1V portable DATE OF EXAM: 09/22/2018 COMPARISON: 09/21/2018 HISTORY: Shortness of breath TECHNIQUE: Single frontal view of the chest is obtained. FINDINGS: ET and NG tube noted. Central line noted. Bilateral consolidation and pleural effusion. No pneumothorax. Diffuse interstitial pattern. Arthropathy of the shoulders. IMPRESSION: 1. Persistent bilateral infiltrate and pleural effusion correlate for CHF.
[2018-09-22] MEDS: CHLORHEXIDINE GLUCONATE 15 ML CUP MUCOUS MEM SCH ×2 (08:04→20:33)
[2018-09-22] MEDS: PIPERACILLIN-TAZOBACTAM 3.375 GM in SODIUM CHLORIDE 0.9% 100 ML IVPB SCH ×3 (08:04→23:26)
[2018-09-22] MEDS: HYDROCORTISONE SUCCINATE 100 MG/2 ML VIAL IV SCH ×3 (08:04→23:25)
[2018-09-22] MEDS: FLUCONAZOLE IN NACL,ISO-OSM 200 MG in SALINE 1 100ML.BAG IVPB SCH (08:04)
[2018-09-22] MEDS: metroNIDAZOLE-NS PMX 500 MG in SALINE 1 100ML.BAG IVPB SCH (08:04)
[2018-09-22] MEDS: PANTOPRAZOLE 40 MG/10 ML VIAL IVP SCH (08:04)
--- NOTE | 2018-09-22 10:17 | CONS ---
CONSULTATION CHIEF COMPLAINT: Atrial fibrillation Deondre is a 72-year-old gentleman with history of chronic atrial fibrillation, chronic atrial fibrillation, COPD, sleep apnea, chronic diastolic heart failure, morbid obesity, hypertension, diabetes, who presented to hospital with gastric ulcer perforation and ischemic colon at the splenic flexure. The patient underwent exploratory laparotomy, decompression of the colon, small-bowel, transverse colectomy and repair of the gastric ulcer. Cardiology has been consulted because of episodes of atrial fibrillation with rapid ventricular rate. Patient was in the hospital recently with diastolic heart failure and atrial fibrillation. He underwent a transesophageal echo that showed a small left atrial thrombus. Hence, the cardioversion was not done. On this admission, he has had episodes of atrial fibrillation with rapid ventricular rate. At the moment, he is on intravenous Cardizem in AFib with controlled ventricular rate and is also on IV heparin. The patient was on amiodarone but had not been resumed. He is not taking any oral medications at the moment. I am going to continue with rate control and anticoagulation at this time. PAST MEDICAL HISTORY: Significant for atrial fibrillation, sleep apnea, COPD, diastolic heart failure, hypertension, diabetes, dyslipidemia. MEDICATIONS: Medications at home included aspirin, Lipitor, Singulair, albuterol, DuoNeb, metformin, Eliquis, Cordarone, Lasix, verapamil, prednisone, Augmentin. The patient has multiple drug allergies, they are charted and I reviewed them. Family history, social history, review of systems. I am unable to obtain from the patient who is intubated and on vent. I reviewed the chart. PHYSICAL EXAM: Intubated on vent. Heart rate is 100 beats per minute, blood pressure is 116/75, respiratory rate is 27. Chest exam reveals diminished air entry bilaterally. Heart exam reveals first and second heart sounds, irregular rhythm. Abdomen is soft. Exam of extremities reveals 1+ edema. Peripheral pulses are felt. LABS: Show a hemoglobin of 7.8, potassium is 3.9, creatinine is 0.9. I do not have any recent EKGs on him. Chest x-ray shows small pleural effusions and bilateral infiltrate. He has normal ejection fraction at the recent echo and MIKE. ASSESSMENT: 1. Chronic atrial fibrillation. 2. Left atrial appendage thrombus. 3. Perforated gastric ulcer. 4. Hypertension. 5. Diabetes. PLAN: I will continue the patient on IV heparin and Cardizem for rate control. I am not going to start him on intravenous amiodarone and he is not a candidate for cardioversion at this time given the recently noted left atrial appendage, thrombus. MMODL / IJN: [id number] /
[2018-09-22] MEDS ORDERED: FUROSEMIDE 10 MG/ML 4 ML VIAL IV STA (12:18)
[2018-09-22 12:31] LABS: Glucose,Whole Blood 202 mg/dL (75-99)
--- NOTE | 2018-09-22 13:13 | P.PN ---
Subjective Progress Note Date: 09/22/18 CHIEF COMPLAINT: abdominal pain HISTORY OF PRESENT ILLNESS: Patient underwent exploratory laparotomy, lysis of adhesions, decompression of colon and small bowel, transverse colectomy with takedown of splenic flexure, and repair of gastric ulcer with Dr. De Leon secondary to pneumoperitoneum, perforated gastric ulcer, ischemic colon at splenic flexure, and bowel obstruction. POD #6. The patient remains intubated on mechanical ventilation in the intensive care unit. Vasopressors remain off. Patient attempted weaning yesterday but was unsuccessful. WBC 8.5. Hemoglobin 7.8. PHYSICAL EXAM: VITAL SIGNS: Reviewed GENERAL: Well-developed in no acute distress. Patient sedated on mechanical ventilation HEENT: ET tube noted. NG to LIS. No sclera icterus. Extraocular movements grossly intact. Moist buccal mucosa. Head is atraumatic, normocephalic. No nasal drainage. NECK: Supple without lymphadenopathy. CHEST: Non-labored respirations and equal bilateral excursions-remains on ventilator. CARDIOVASCULAR: Irregular rhythm. Palpable 2+ radial pulses. ABDOMEN: Abdomen nondistended, but obese. Dressing CDI with packing to midline incision. CHAVEZ drain with serosanguineous drainage. Left-sided colostomy with stool present. Ostomy pink/red. MUSCULOSKELETAL: No clubbing or cyanosis. Generalized edema NEUROLOGIC: Patient sedated on mechanical ventilation PSYCH: Patient sedated on mechanical ventilation SKIN: Well perfused. Good skin turgor. ASSESSMENT: 1. Abdominal pain 2. Pneumoperitoneum 3. S/P exploratory laparotomy, lysis of adhesions, decompression of colon and small bowel, transverse colectomy with takedown of splenic flexure, and repair of gastric ulcer secondary to pneumoperitoneum, perforated gastric ulcer, ischemic colon at splenic flexure, and bowel obstruction 4. Septic shock, present on admission secondary to above 5. History of atrial fibrillation, on long-term anticoagulation with Eliquis 6. History of bowel obstruction 7. History of laparoscopic Bruce fundoplication 8. History of hiatal hernia repair with mesh PLAN: 1. Continue ventilator management per Dr. Mendoza 2. Continue TPN. No tube feedings until patient able to be extubated. Will require barium swallow to ensure no leak before initiating oral intake. 3. Place wound vac to abdominal incision today 4. Ostomy resource RN on consult 5. Continue antibiotics. Dr. Benedict on consult. 6. Anticoagulation per cardiology. Currently on heparin drip. Nurse practitioner note has been reviewed by physician. Signing provider agrees with the documented findings, assessment, and plan of care. Objective - Vital Signs Vital signs: Vital Signs Temp 99.2 F 09/22/18 08:00 Pulse 112 H 09/22/18 11:14 Resp 26 H 09/22/18 10:00 BP 122/69 09/22/18 10:00 Pulse Ox 97 09/22/18 10:00 Intake & Output 09/21/18 09/22/18 09/22/18 18:59 06:59 18:59 Intake Total 3036.207 2043.543 763.001 Output Total 3950 3190 490 Balance -913.793 -1146.457 273.001 Weight 156 kg 156 kg Intake: IV 1244 1314 624 .9 360 Fluconazole in NaCl,Iso- 100 Osm 200 mg In Saline 1 100ml.bag @ 100 mls/hr IVPB DAILY [facility] Rx#: [id number] Mvi, Adult No.4 with Vit 605 715 165 K 10 ml Trace (Conc-1Ml/ Dose) 1 ml Sodium Acetate 30 meq Potassium Chloride 20 meq Calcium Gluconate 1 gm Potassium Phosphate 15 mmol In Amino Acid 5%-D15w 1,000 ml @ 55 mls/hr IV .Q19H7M [facility] Rx#:[id number] Piperacillin-Tazobactam 3 200 100 50 .375 gm In Sodium Chloride 0.9% 100 ml @ 25 mls/hr IVPB Q8HR [facility] Rx# :[id number] Potassium Chloride 10 meq 200 In Water For Injection 1 100ml.bag @ 100 mls/hr IVPB Q1H [facility] Rx#: [id number] Potassium Chloride 10 meq 200 In Water For Injection 1 100ml.bag @ 100 mls/hr IVPB Q1HR [facility] Rx#: [id number] Pressure Bag 39 39 9 metroNIDAZOLE-NS PMX 500 200 100 100 mg In Saline 1 100ml.bag @ 100 mls/hr IVPB Q8HR [facility] Rx#:[id number] Intake, IV Titration 1792.207 729.543 139.001 Amount Diltiazem 125 mg In 125 Sodium Chloride 0.9% 100 ml @ 5 MG/HR 5 mls/hr IV .Q24H [facility] Rx#:[id number] Heparin Sod,Pork in 0.45% 249.673 250 NaCl 25,000 unit In 0.45 % NaCl 1 250ml.bag @ 6.1 UNITS/KG/HR 9.998 mls/hr IV .Q24H [facility] Rx#: [id number] Mvi, Adult No.4 with Vit 1106 K 10 ml Trace (Conc-1Ml/ Dose) 1 ml Sodium Acetate 30 meq Potassium Chloride 20 meq Calcium Gluconate 1 gm Sodium Phosphate 15 mmol In Amino Acid 5%-D15w 1,000 ml @ 55 mls/hr IV .Q19H7M [facility] Rx#:[id number] Norepinephrine 8 mg In 4.353 9.424 Sodium Chloride 0.9% 250 ml @ 0.05 MCG/KG/MIN 14. 35 mls/hr IV .[id number] [facility] Rx#:[id number] Propofol 1,000 mg In 287.181 470.119 139.001 Empty Bag 1 bag @ Titrate IV .Q0M [facility] Rx#: [id number] Sodium Chloride 0.9% 1, 20 000 ml @ 20 mls/hr IV . Q24H [facility] Rx#:[id number] Output: Gastric Drainage 150 Drainage 725 150 Abdomen 725 150 Urine 3055 2090 490 Stool 20 750 Emesis 200 Other: Voiding Method Indwelling Catheter Indwelling Catheter ABP, PAP, CO, CI - Last Documented Arterial Blood Pressure 143/67 - Labs CBC & Chem 7: 09/22/18 04:00 09/22/18 04:00 Labs: Abnormal Lab Results - Last 24 Hours (Table) 09/21/18 09/21/18 09/21/18 Range/Units 19:02 20:21 23:29 RBC (4.30-5.90) m/uL Hgb (13.0-17.5) gm/dL Hct (39.0-53.0) % MCV (80.0-100.0) fL MCH (25.0-35.0) pg MCHC (31.0-37.0) g/dL RDW (11.5-15.5) % ABG O2 Saturation (94-97) % Sodium (137-145) mmol/L Potassium 3.4 L (3.5-5.1) mmol/L Chloride (98-107) mmol/L Carbon Dioxide (22-30) mmol/L BUN (9-20) mg/dL Glucose (74-99) mg/dL POC Glucose (mg/dL) 122 H 177 H (75-99) mg/dL Calcium (8.4-10.2) mg/dL Magnesium (1.6-2.3) mg/dL 09/22/18 09/22/18 09/22/18 Range/Units 04:00 04:00 04:32 RBC 4.24 L (4.30-5.90) m/uL Hgb 7.8 L (13.0-17.5) gm/dL Hct 29.4 L (39.0-53.0) % MCV 69.3 L (80.0-100.0) fL MCH 18.5 L (25.0-35.0) pg MCHC 26.7 L (31.0-37.0) g/dL RDW 19.8 H (11.5-15.5) % ABG O2 Saturation 98.8 H (94-97) % Sodium 150 H (137-145) mmol/L Potassium (3.5-5.1) mmol/L Chloride 122 H (98-107) mmol/L Carbon Dioxide 20 L (22-30) mmol/L BUN 29 H (9-20) mg/dL Glucose 177 H (74-99) mg/dL POC Glucose (mg/dL) (75-99) mg/dL Calcium 7.6 L (8.4-10.2) mg/dL Magnesium 2.4 H (1.6-2.3) mg/dL 09/22/18 09/22/18 Range/Units 06:46 12:29 RBC (4.30-5.90) m/uL Hgb (13.0-17.5) gm/dL Hct (39.0-53.0) % MCV (80.0-100.0) fL MCH (25.0-35.0) pg MCHC (31.0-37.0) g/dL RDW (11.5-15.5) % ABG O2 Saturation (94-97) % Sodium (137-145) mmol/L Potassium (3.5-5.1) mmol/L Chloride (98-107) mmol/L Carbon Dioxide (22-30) mmol/L BUN (9-20) mg/dL Glucose (74-99) mg/dL POC Glucose (mg/dL) 167 H 202 H (75-99) mg/dL Calcium (8.4-10.2) mg/dL Magnesium (1.6-2.3) mg/dL Microbiology - Last 24 Hours (Table) 09/16/18 14:25 Blood Culture - Preliminary Blood No Growth after 120 hours Assessment and Plan (1) Acute abdomen Current Visit: Yes Status: Acute Code(s): R10.0 - ACUTE ABDOMEN SNOMED Code(s): 9227982 (2) A-fib Current Visit: No Status: Acute Priority: High Code(s): I48.91 - UNSPECIFIED ATRIAL FIBRILLATION SNOMED Code(s): 64985539 (3) Abdominal pain Current Visit: No Status: Acute Code(s): R10.9 - UNSPECIFIED ABDOMINAL PAIN SNOMED Code(s): 05934520 (4) S/P exploratory laparotomy Current Visit: No Status: Acute Code(s): Z98.89 - OTHER SPECIFIED POSTPROCEDURAL STATES * DO NOT USE * SNOMED Code(s): 610187769
--- NOTE | 2018-09-22 13:27 | P.PN ---
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 The patient presented yesterday to the emergency department with extreme abdominal pain. The patient was apparently a constipated for a week and he was doing enemas at home. He ultimately felt a pop in the lower portion of his abdomen on the day of the presentation and he came in with severe abdominal pain. He was having emesis. CAT scan of the abdomen was done in the emergency department the patient was found to have no apparent 20. The patient had abdominal distention and his abdominal size was twice the normal. His blood pressure was in the low 90s. He was tachycardic with a heart rate in the 1:30. He was given IV fluids. He was given IV Zosyn. Blood cultures were sent. He was seen by general surgery and the patient was taken to the operating room, and the patient was found to have perforated gastric ulcer, ischemic colon at the site of the splenic flexure of bowel obstruction. The patient underwent expiratory laparotomy, lysis of adhesions, decompression of the colon and small bowel, transverse colectomy and takedown of the splenic flexure and repair of the gastric ulcer. Estimated blood loss is only 100 mL. The patient overnight was brought into the intensive care unit. The patient was resuscitated aggressively with IV fluids. He was given colloids and crystalloids. He is given 8 L of IV fluids. He was started on pressors and currently norepinephrine infusion is running at 62 g per minute. The patient was also started on physiologic dose vasopressin at 0.03 units per minute. Currently is on propofol at 14 mics for sedation. He is receiving normal saline at the rate of 150 mL an hour. Urine output is in order of 20-30 mL an hour. He is warm. His temperature was 100.5. He is on a mechanical ventilator. He is on assist-control mode of ventilation with a tidal volume of 550 at the rate of 26 with an FiO2 of 80% and a PEEP of 5. Blood gases from this morning shows a pH of 7.315 with a pCO2 of 40 and pO2 of 134. His echocardiogram from previous admissions showed an ejection fraction of 55-60%. He had a preserved LV function. No significant valvular abnormalities. Pulmonary to pressure estimated to be 44. His cardiac rhythm is currently sinus. The patient has a CHAVEZ drain in his abdomen and this is on the r ight side and output is around 80-90 mL of serous material. He also has a colostomy and the site is nonfunctioning it seems to be viable at this point. Note that the patient was in the hospital and he was discharged home on 09/12/2018 after being treated for a flutter/failure with rapid ventricular response and shortness of breath and acute diastolic heart failure. Upon discharge, the patient was started on amiodarone thousand milligrams twice a day, Eliquis, Aldactone, and he was given Augmentin on outpatient basis and a prednisone burst taper. He was discharged home on a 40 mg of prednisone. On today's evaluation of 09/18/2018, the patient is postop day #2. The patient is still sedated with propofol at 35 g per KG per minute. The patient is was sedated and calm and comfortable on a mechanical ventilator essentially on the same vent setting with a tidal volume of 550 and FiO2 of 50% with a PEEP of 5 and a respiratory rate of 26. The morning blood gases showed a pH of 7.36 with a pCO2 of 33 and pO2 of 109 and this was done and FiO2 of 50%. Chest x-ray showing cardiomegaly and some mild pulmonary vascular congestion. ET tube is in a good location. The patient has no significant rest or secretions. Hemodynamically, the patient has been aggressively resuscitated IV fluids. The patient is currently on normal saline the rate of 150 mL an hour. The patient is producing more than 50 mL an hour of urine output. The patient is still requiring pressors. The patient is on physiologic dose vasopressin. The patient is also on norepinephrine infusion which is currently running at 21 g per minute. The patient is afebrile. The patient is nothing by mouth. The patient has bowel sounds and the patient has also has a colostomy in place. NG tube is in place output has been around 200 mL over the past 8 hours. Earlier this morning, the patient was seen to be in tachycardia. A 12-lead EKG was done and the rhythm is essentially undetermined. This is most likely supraventricular rhythm, A. fib versus flutter. SCDs felt to be less likely. A. fib is favored nontender the patient has had previous history of atrial fibrillation. This has not affected the patient's overall hemodynamics and blood pressure control. The white cell count is at 9.6. Hemoglobin was 8.5. The patient continues to be in acute kidney failure. Creatinine is up to 1.80 is stable compared to yesterday. On today's evaluation of 09/19/2018 the patient is postop day #3. On today's evaluation that has been further progress and the patient's blood pressure. Currently is only on 5 mics of norepinephrine infusion the patient is also on vasopressin physiologic dose. There has been considerable improvement in the pressor requirements over the past 24-48 hours. He is still producing more than 100 mL of urine output. Afebrile. Still intubated on a mechanical ventilator. Vent settings are essentially unchanged compared to yesterday with a tidal volume of 550 FiO2 of 50% with a PEEP of 5 and the respiratory rate of 26. Blood gases from today showed a pH of 7.36 with a pCO2 of 35 and pO2 of 121 and this was done and FiO2 of 50%. The patient is was arrested on propofol which is running at 40 mics. Chest x-ray from today shows bilateral pleural effusion and ET tube is in a good location. The patient has positive bowel sounds. The patient is producing some stool activity in his colostomy bag. The CHAVEZ drain output is minimal. NG tube output is minimal. The patient is still on broad- spectrum antibiotic coverage. Cultures from the abdominal wound have been all negative. White cell count is not elevated. Hemoglobin stable at 7.8. Family is at the bedside. As far as atrial fibrillation, the patient was bolused with amiodarone and following that the patient was maintained at a lower heart rate yet still in atrial fibrillation. No anticoagulants for now. The function is improving and the creatinine is down to 1.2. On 09/20/2018 patient is postop day #4. The patient is sedated this morning. The patient is off pressors and norepinephrine infusion and vasopressin has been discontinued. Urine output is excellent. We have noted increased in output from the CHAVEZ drain which has put out approximately 400 mL over the past few hours. Meanwhile the, surgical wound site is dry clean and intact. The patient has a functional colostomy and there is stool output in the colostomy bag. The patient remains on a mechanical ventilator. Vent settings are essentially unchanged. The patient had a blood gases this morning that showed a pH of 7.4 with a pCO2 of 34 and pO2 of 76. The patient had a chest x-ray that showed vascular congestion and edema and bilateral pleural effusions. The patient is on TPN for nutritional support. IV fluids have been cut down to KVO. He is on propofol for sedation. Elisha output is minimal at this point in time. No fever. No chills. Sedation holiday was given yesterday at the patient was not ready for any weaning. The same will be done today. Meanwhile, the patient is still in atrial fibrillation. The patient was taken off the amiodarone drip. The patient was started in IV heparin. Cardizem drip will be started today for rate control. The patient is afebrile. Renal function is normalized and the creatinine is down to 1.02. On 09/21/2018 patient is postop day #5. Sedation holiday was given. The patient woke up appropriately. Unable to give me good weaning parameters. Given a showed spontaneous breathing trial and he feels that the patient became tachypneic tachycardic and the trial was discontinued. He is back on assist control mode of ventilation. Chest x-ray showing pulmonary vessel congestion/edema. The patient is a negative fluid balance of 1.3 L and the patient is producing excellent urine output. His dose of Lasix will be given to augment the urine output and establish a better negative fluid balance over the next 24 hours. Otherwise, he started on TPN for nutritional support. He is on a Cardizem drip for rate control. He is in atrial fibrillation. He is on IV heparin. He is afebrile. He is on broad-spectrum antibiotics. The ostomy is viable and there is stool within the bag. Discussed the case with general surgery and no plans for feeding at this point in time. A barium swallow needs to be done later stage to make sure there is no bowel leak. Reevaluated today on 09/22/2018, patient remains on mechanical ventilation, remains on multiple meds, but not requiring any pressors. He is on vent settings assist-control mode of mechanical ventilation with tidal volume of 550 rate of 26, FiO2 40% PEEP of 5. Patient remains on Cardizem, on TPN, heparin, Zosyn and Diflucan and on propofol drip. Weaning trial failed yesterday, and the same happened today, patient was taken off propofol, and after few hours he became extremely agitated, tachypneic, tachycardic, and had to place him back on propofol. However his mental status was noted to be intact, and he was appropriate off propofol. I have a feeling that the patient may eventually require tracheostomy if he continues to fail daily weaning trials. Labs were reviewed his sodium is elevated chloride is 122, hence his IV fluid will be changed to D5W. His ABG showed a pO2 of 89 pCO2 of 35 pH of 7.43. CBC is relatively unremarkable WBC count is 8.5 hemoglobin is 7.8. His ostomy is viable. Patient remains on TPN. Objective - Vital Signs Vital signs: Vital Signs Temp 99.2 F 09/22/18 08:00 Pulse 112 H 09/22/18 11:14 Resp 26 H 09/22/18 10:00 BP 122/69 09/22/18 10:00 Pulse Ox 97 09/22/18 10:00 Intake & Output 09/21/18 09/22/18 09/22/18 18:59 06:59 18:59 Intake Total 3036.207 2043.543 763.001 Output Total 3950 3190 490 Balance -913.793 -1146.457 273.001 Weight 156 kg 156 kg Intake: IV 1244 1314 624 .9 360 Fluconazole in NaCl,Iso- 100 Osm 200 mg In Saline 1 100ml.bag @ 100 mls/hr IVPB DAILY [facility] Rx#: [id number] Mvi, Adult No.4 with Vit 605 715 165 K 10 ml Trace (Conc-1Ml/ Dose) 1 ml Sodium Acetate 30 meq Potassium Chloride 20 meq Calcium Gluconate 1 gm Potassium Phosphate 15 mmol In Amino Acid 5%-D15w 1,000 ml @ 55 mls/hr IV .[id number] [facility] Rx#:[id number] Piperacillin-Tazobactam 3 200 100 50 .375 gm In Sodium Chloride 0.9% 100 ml @ 25 mls/hr IVPB Q8HR [facility] Rx# :[id number] Potassium Chloride 10 meq 200 In Water For Injection 1 100ml.bag @ 100 mls/hr IVPB Q1H [facility] Rx#: [id number] Potassium Chloride 10 meq 200 In Water For Injection 1 100ml.bag @ 100 mls/hr IVPB Q1HR [facility] Rx#: [id number] Pressure Bag 39 39 9 metroNIDAZOLE-NS PMX 500 200 100 100 mg In Saline 1 100ml.bag @ 100 mls/hr IVPB Q8HR [facility] Rx#:[id number] Intake, IV Titration 1792.207 729.543 139.001 Amount Diltiazem 125 mg In 125 Sodium Chloride 0.9% 100 ml @ 5 MG/HR 5 mls/hr IV .Q24H [facility] Rx#:[id number] Heparin Sod,Pork in 0.45% 249.673 250 NaCl 25,000 unit In 0.45 % NaCl 1 250ml.bag @ 6.1 UNITS/KG/HR 9.998 mls/hr IV .Q24H [facility] Rx#: [id number] Mvi, Adult No.4 with Vit 1106 K 10 ml Trace (Conc-1Ml/ Dose) 1 ml Sodium Acetate 30 meq Potassium Chloride 20 meq Calcium Gluconate 1 gm Sodium Phosphate 15 mmol In Amino Acid 5%-D15w 1,000 ml @ 55 mls/hr IV .Q19H7M [facility] Rx#:[id number] Norepinephrine 8 mg In 4.353 9.424 Sodium Chloride 0.9% 250 ml @ 0.05 MCG/KG/MIN 14. 35 mls/hr IV .[id number] [facility] Rx#:[id number] Propofol 1,000 mg In 287.181 470.119 139.001 Empty Bag 1 bag @ Titrate IV .Q0M [facility] Rx#: [id number] Sodium Chloride 0.9% 1, 20 000 ml @ 20 mls/hr IV . Q24H [facility] Rx#:[id number] Output: Gastric Drainage 150 Drainage 725 150 Abdomen 725 150 Urine 3055 2090 490 Stool 20 750 Emesis 200 Other: Voiding Method Indwelling Catheter Indwelling Catheter ABP, PAP, CO, CI - Last Documented Arterial Blood Pressure 143/67 - Exam Physical Exam: Revealed 72-year-old white male on mechanical ventilation, sedated, Head: Atraumatic, normocephalic. HEENT:[Neck is supple.] [No neck masses.] [No thyromegaly.] [No JVD.] Endot jabier tube is intact. Moist mucous membranes noted. Chest: [Symmetrical chest expansion, fine crackles at the bases bilaterally. Minimal wheezing. Cardiac Exam: [Normal S1 and S2, no S3 gallop, no murmur.] Abdomen: [Postsurgical, Soft, nontender, no megaly, no rebound, no guarding, diminished bowel sounds, colostomy seems to be viable with healthy tissue, and some output noted in the colostomy bag. Abdominal incision is dry and clean. Extremities: [No clubbing, trace of bipedal edema. edema, no cyanosis.] Neurological Exam: Cannot be assessed, patient is on propofol, however according to the nurse after he was off propofol for a couple of hours, he was noted to have intact mental status and he was appropriately. Lymphatics: No lymphadenopathy. Skin: No rashes. Psychiatric: Could not be assessed. - Labs CBC & Chem 7: 09/22/18 04:00 09/22/18 04:00 Labs: Abnormal Lab Results - Last 24 Hours (Table) 09/21/18 09/21/18 09/21/18 Range/Units 19:02 20:21 23:29 RBC (4.30-5.90) m/uL Hgb (13.0-17.5) gm/dL Hct (39.0-53.0) % MCV (80.0-100.0) fL MCH (25.0-35.0) pg MCHC (31.0-37.0) g/dL RDW (11.5-15.5) % ABG O2 Saturation (94-97) % Sodium (137-145) mmol/L Potassium 3.4 L (3.5-5.1) mmol/L Chloride (98-107) mmol/L Carbon Dioxide (22-30) mmol/L BUN (9-20) mg/dL Glucose (74-99) mg/dL POC Glucose (mg/dL) 122 H 177 H (75-99) mg/dL Calcium (8.4-10.2) mg/dL Magnesium (1.6-2.3) mg/dL 09/22/18 09/22/18 09/22/18 Range/Units 04:00 04:00 04:32 RBC 4.24 L (4.30-5.90) m/uL Hgb 7.8 L (13.0-17.5) gm/dL Hct 29.4 L (39.0-53.0) % MCV 69.3 L (80.0-100.0) fL MCH 18.5 L (25.0-35.0) pg MCHC 26.7 L (31.0-37.0) g/dL RDW 19.8 H (11.5-15.5) % ABG O2 Saturation 98.8 H (94-97) % Sodium 150 H (137-145) mmol/L Potassium (3.5-5.1) mmol/L Chloride 122 H (98-107) mmol/L Carbon Dioxide 20 L (22-30) mmol/L BUN 29 H (9-20) mg/dL Glucose 177 H (74-99) mg/dL POC Glucose (mg/dL) (75-99) mg/dL Calcium 7.6 L (8.4-10.2) mg/dL Magnesium 2.4 H (1.6-2.3) mg/dL 09/22/18 09/22/18 Range/Units 06:46 12:29 RBC (4.30-5.90) m/uL Hgb (13.0-17.5) gm/dL Hct (39.0-53.0) % MCV (80.0-100.0) fL MCH (25.0-35.0) pg MCHC (31.0-37.0) g/dL RDW (11.5-15.5) % ABG O2 Saturation (94-97) % Sodium (137-145) mmol/L Potassium (3.5-5.1) mmol/L Chloride (98-107) mmol/L Carbon Dioxide (22-30) mmol/L BUN (9-20) mg/dL Glucose (74-99) mg/dL POC Glucose (mg/dL) 167 H 202 H (75-99) mg/dL Calcium (8.4-10.2) mg/dL Magnesium (1.6-2.3) mg/dL Microbiology - Last 24 Hours (Table) 09/16/18 14:25 Blood Culture - Preliminary Blood No Growth after 120 hours Assessment and Plan Assessment: 1 perforated gastric ulcer/ischemic colon at the level of splenic fracture with bowel obstruction. Status post exploratory laparotomy, lysis of adhesions, repair of a gastric ulcer, transfers colectomy postoperative day #6 2 septic shock secondary to abdominal sepsis, recovered. 3 acute hypoxic respiratory failure secondary to septic shock and abdominal sepsis. 4 acute kidney injury secondary to above, recovered 5 mild lactic acidosis lactic acid level is down to 2.8 6 history of paroxysmal atrial fibrillation with a recent admission to the hospital because of A. fib/flutter with RVR current rhythm is sinus. Remains on heparin and Cardizem. 7 COPD, presently inactive. 8 bronchial asthma presently inactive 9 CHF with diastolic heart failure 10 obstructive sleep apnea noncompliant with CPAP therapy 11 diabetes mellitus type 2, on insulin protocol. 12 chronic hypoxic respiratory failure with an oxygen at 2 L per minute nasal cannula on outpatient basis Recommendation: Continue ventilatory support, hemodynamic support if necessary, correcting electrolytes with IV fluids, continue GI and DVT prophylaxis, continue antibiotics, continue daily weaning trials, family was updated on his condition today, and made aware that he may eventually require tracheostomy if he continues to fail on a daily basis for the next few days. X-ray was reviewed, labs were reviewed ABG was also reviewed, ventilator settings were all reviewed. And at this point the patient is clearly not ready to be weaned and extubated, failed practically weaning because he could not tolerate being off propofol for a long enough time. I have a feeling that the patient may eventually require tracheostomy. In the meantime continue ventilatory support, continue TPN, and optimize fluid status. Prognosis remains guarded. Critical care time is 40 minutes. Time with Patient: Greater than 30
--- NOTE | 2018-09-22 13:30 | P.PN ---
Subjective Progress Note Date: 09/22/18 This is a 72-year-old male patient of Dr. Cevallos with past history of chronic hypoxic respiratory failure on home O2 obstructive sleep apnea on CPAP, paroxysmal atrial fibrillation, chronic diastolic heart failure, severe COPD, morbid obesity with BMI of 47, hypertension hypertensive cardiovascular disease, mild intermittent asthma, hyperlipidemia, gastroesophageal reflux disease, diabetes mellitus type 2, cellulitis of the abdominal wall. Patient was recently hospitalized and discharged home on September 12 and treated for acute diastolic heart failure, atrial flutter/atrial fibrillation with rapid ventricular response status post MIKE which found a small atrial appendage thrombus. The patient was stabilized and discharged home in stable condition and had been started on amiodarone, eliquis, Aldactone, prednisone and Augmentin. Patient presented to [facility] emergency center for evaluation. He was afebrile, heart rate 130s, blood pressure 119/79, pulse ox 95%. White count was 5.9, hemoglobin 10.6, platelet count 4-72. Sodium 133, potassium 5.4, chloride 96, CO2 20, BUN 36 and creatinine 1.6, blood sugar 178. CAT scan of the abdomen and pelvis revealed pneumoperitoneum. Bowel distention. Bowel ischemia not excluded. No clear obstruction. Findings may be due to ileus. Patient was provided IV fluids, pain medication and Zosyn patient was seen by Dr. De Leon in the emergency center and taken to the OR found to have a perforated gastric ulcer, ischemic colon at the site of splenic flexure of the bowel obstruction. Patient underwent exploratory laparotomy, lysis of adhesions, decompression of the colon and small bowel, transverse colectomy and takedown of splenic flexure and repair of a gastric ulcer. Patient was then transferred to the intensive care unit and followed by Dr. Red. He is status post greater than 8 L of IV fluid and on norepinephrine and subsequent started on vasopressin. Urine output has been marginal patient remains intubated and on mechanical ventilation with tidal volume 550, FiO2 of 50% and PEEP of 5. The patient is on sedation. 09/18: Patient remains in intensive care unit intubated and on mechanical vent ilation with tidal volume 550, FiO2 50, PEEP 5. NG tube with black drainage. He is on 22 mics of levo fed and 0.03 vasopressin. Patient was started on amiodarone due to continued A. fib with RVR. Heart rate is in the 140s, blood pressure systolic 99. A.m. lab work white count 9.6, hemoglobin 8.5, platelet count 368. Sodium 136, potassium 4.9, chloride 108, CO2 18, BUN 39 creatinine 1.81. Blood sugars are running between 141 and 161. Urine culture is in progress and blood culture is no growth at [address] Benedict is recommended continuing Zosyn and Diflucan. Son is at bedside and all questions have been answered. 09/19: Patient remains in the intensive care unit intubated and on mechanical ventilation with tidal volume 550, FiO2 40 and PEEP of 5. Norepinephrine is now down to 5 mics and minimal on vasopressin. Urine output has been more than adequate. He has been afebrile. He is continued on sedation with propofol. A sedation holiday was attempted today but patient became tachypneic. Patient is back on sedation with plan for tomorrow for sedation holiday tomorrow. Patient has had output from colostomy and passing gas and colostomy. Decreased output from NG tube and from CHAVEZ drain. WBC 8.6, hemoglobin 7.8. He has been afebrile, heart rate 99, blood pressure 90/63. TPN has been started. Amiodarone drip to be discontinued. alarm security or surveillance monitor is currently A. fib with controlled rate. 09/20 Patient remains in ICU, currently nothing by mouth, CHAVEZ drain has drained ov er 2 L in 24 hours, patient has been off pressors, urine output is normal, patient is still on TPN, patient still has abdominal discomfort, otherwise no chest pain no shortness of breath, no palpitations. Hemoglobin currently at 7.4 from an admitting hemoglobin of 9.4, iron studies to be done, agent has initial myelocytes on admission, creatinine 1.02 from 1.2, surgical incision is dry, there is stool output in the colostomy bag, patient remains on mechanical ventilator, unchanged and settings. Followed closely by pulmonary medicine, Cardizem drip was initiated for atrial fibrillation. Attempt to be made with weaning ventilatory support in a.m. : Postop day #5, he was given sedation holiday today, and was able to follow verbal commands, unable to wean today secondary to parameters from Dr. Red, patient went back to assist control mode of ventilation, Lasix was given 401 dose for CHF, pulmonary edema, blood pressure remains stable, negative balance of 1.3 L, urine output is good, has decreased output on the CHAVEZ drain, small amount of mucus stools today, still diminished bowel sounds currently nothing by mouth, general surgery following closely, 09/22: Patient remains intubated and on mechanical ventilation with tidal volume 550, FiO2 40, PEEP 5. Patient failed weaning attempt this morning. Patient is off vasopressors. He has been afebrile, heart rate 108, blood pressure 116/57. Repeat lab work reveals white count of 8.5, hemoglobin 7.8, platelet count 372. Sodium is 150, potassium 3.9, chloride 122, CO2 20, BUN 29 creatinine 0.92. Blood sugars run between 160 08/[birth year]/1976. Phosphorus 3.4. Magnesium 2.4. Repeat chest x-ray this morning reveals persistent bilateral infiltrate and pleural effusion correlate for heart failure. Patient is maintained on Cardizem drip started over the weekend by battery container inspector. The patient is also continued on TPN. No plan for tube feedings until extubated. Patient does have a liquid stool in ostomy. Urine output has been adequate. CHAVEZ drain remains in place. Consult for cardiology added for atrial fibrillation. Objective - Vital Signs Vital signs: Vital Signs Temp 99.5 F 09/22/18 00:00 Pulse 101 H 09/22/18 07:35 Resp 29 H 09/22/18 07:15 BP 114/65 09/21/18 19:00 Pulse Ox 96 09/22/18 07:15 Intake & Output 09/21/18 09/22/18 09/22/18 18:59 06:59 18:59 Intake Total 3036.207 2043.543 85.752 Output Total 3950 3190 Balance -913.793 -1146.457 85.752 Weight 156 kg Intake: IV 1244 1314 .9 360 Mvi, Adult No.4 with Vit 605 715 K 10 ml Trace (Conc-1Ml/ Dose) 1 ml Sodium Acetate 30 meq Potassium Chloride 20 meq Calcium Gluconate 1 gm Potassium Phosphate 15 mmol In Amino Acid 5%-D15w 1,000 ml @ 55 mls/hr IV .Q19H7M [facility] Rx#:[id number] Piperacillin-Tazobactam 3 200 100 .375 gm In Sodium Chloride 0.9% 100 ml @ 25 mls/hr IVPB Q8HR [facility] Rx# :[id number] Potassium Chloride 10 meq 200 In Water For Injection 1 100ml.bag @ 100 mls/hr IVPB Q1HR [facility] Rx#: [id number] Pressure Bag 39 39 metroNIDAZOLE-NS PMX 500 200 100 mg In Saline 1 100ml.bag @ 100 mls/hr IVPB Q8HR [facility] Rx#:[id number] Intake, IV Titration 1792.207 729.543 85.752 Amount Diltiazem 125 mg In 125 Sodium Chloride 0.9% 100 ml @ 5 MG/HR 5 mls/hr IV .Q24H [facility] Rx#:[id number] Heparin Sod,Pork in 0.45% 249.673 250 NaCl 25,000 unit In 0.45 % NaCl 1 250ml.bag @ 6.1 UNITS/KG/HR 9.998 mls/hr IV .Q24H [facility] Rx#: [id number] Mvi, Adult No.4 with Vit 1106 K 10 ml Trace (Conc-1Ml/ Dose) 1 ml Sodium Acetate 30 meq Potassium Chloride 20 meq Calcium Gluconate 1 gm Sodium Phosphate 15 mmol In Amino Acid 5%-D15w 1,000 ml @ 55 mls/hr IV .Q19H7M [facility] Rx#:[id number] Norepinephrine 8 mg In 4.353 9.424 Sodium Chloride 0.9% 250 ml @ 0.05 MCG/KG/MIN 14. 35 mls/hr IV .[id number] [facility] Rx#:[id number] Propofol 1,000 mg In 287.181 470.119 85.752 Empty Bag 1 bag @ Titrate IV .Q0M [facility] Rx#: [id number] Sodium Chloride 0.9% 1, 20 000 ml @ 20 mls/hr IV . Q24H [facility] Rx#:[id number] Output: Gastric Drainage 150 Drainage 725 150 Abdomen 725 150 Urine 3055 2090 Stool 20 750 Emesis 200 Other: Voiding Method Indwelling Catheter Indwelling Catheter ABP, PAP, CO, CI - Last Documented Arterial Blood Pressure 116/57 - Exam Review of Systems ROS unobtainable: due to endotracheal tube Gen: This is a 72-year-old morbidly obese male. He is in the intensive care unit. Patient is intubated and on mechanical ventilation. Patient appears to be comfortable. HEENT: Head is atraumatic, normocephalic. Pupils equal, round. Sclerae is anicteric. NG tube in place draining dark liquid. Oral tracheal tube in place. Mucous membranes of the mouth are moist. NECK: Supple. No JVD. No lymphadenopathy. No thyromegaly. LUNGS: Diminished bilaterally with scattered rhonchi and expiratory wheeze. HEART: Irregular rate and rhythm. Systolic murmur. alarm security or surveillance monitor atrial fibrillation with rate control. ABDOMEN: Soft. Large. Normal bowel sounds are present. Colostomy in the left upper quadrant with positive gas. There is a large mid abdominal incision with dressing that is dry and intact. No breakthrough bleeding or drainage. CHAVEZ drain with serous material. Foster catheter draining clear urine. EXTREMITIES: No pedal edema. No calf tenderness. Midline to right upper arm. NEUROLOGICAL: Patient is sedated. - Labs CBC & Chem 7: 09/22/18 04:00 09/22/18 04:00 Labs: Abnormal Lab Results - Last 24 Hours (Table) 09/21/18 09/21/18 09/21/18 Range/Units 12:19 19:02 20:21 RBC (4.30-5.90) m/uL Hgb (13.0-17.5) gm/dL Hct (39.0-53.0) % MCV (80.0-100.0) fL MCH (25.0-35.0) pg MCHC (31.0-37.0) g/dL RDW (11.5-15.5) % ABG O2 Saturation (94-97) % Sodium (137-145) mmol/L Potassium 3.4 L (3.5-5.1) mmol/L Chloride (98-107) mmol/L Carbon Dioxide (22-30) mmol/L BUN (9-20) mg/dL Glucose (74-99) mg/dL POC Glucose (mg/dL) 179 H 122 H (75-99) mg/dL Calcium (8.4-10.2) mg/dL Magnesium (1.6-2.3) mg/dL 09/21/18 09/22/18 09/22/18 Range/Units 23:29 04:00 04:00 RBC 4.24 L (4.30-5.90) m/uL Hgb 7.8 L (13.0-17.5) gm/dL Hct 29.4 L (39.0-53.0) % MCV 69.3 L (80.0-100.0) fL MCH 18.5 L (25.0-35.0) pg MCHC 26.7 L (31.0-37.0) g/dL RDW 19.8 H (11.5-15.5) % ABG O2 Saturation (94-97) % Sodium 150 H (137-145) mmol/L Potassium (3.5-5.1) mmol/L Chloride 122 H (98-107) mmol/L Carbon Dioxide 20 L (22-30) mmol/L BUN 29 H (9-20) mg/dL Glucose 177 H (74-99) mg/dL POC Glucose (mg/dL) 177 H (75-99) mg/dL Calcium 7.6 L (8.4-10.2) mg/dL Magnesium 2.4 H (1.6-2.3) mg/dL 09/22/18 09/22/18 Range/Units 04:32 06:46 RBC (4.30-5.90) m/uL Hgb (13.0-17.5) gm/dL Hct (39.0-53.0) % MCV (80.0-100.0) fL MCH (25.0-35.0) pg MCHC (31.0-37.0) g/dL RDW (11.5-15.5) % ABG O2 Saturation 98.8 H (94-97) % Sodium (137-145) mmol/L Potassium (3.5-5.1) mmol/L Chloride (98-107) mmol/L Carbon Dioxide (22-30) mmol/L BUN (9-20) mg/dL Glucose (74-99) mg/dL POC Glucose (mg/dL) 167 H (75-99) mg/dL Calcium (8.4-10.2) mg/dL Magnesium (1.6-2.3) mg/dL Microbiology - Last 24 Hours (Table) 09/16/18 14:25 Blood Culture - Preliminary Blood No Growth after 120 hours Assessment and Plan Plan: 1. Abdominal pain secondary to perforated gastric ulcer, ischemic colon at the splenic flexure with bowel obstruction status post exploratory laparotomy, lysis of adhesions, repair of gastric ulcer, transverse colectomy and takedown of the splenic flexure. Continue fluconazole, Flagyl IV, Zosyn IV. Dr. Benedict consult appreciated. 2. Hypovolemic shock status post IV fluid resuscitation and vasopressors. Patient is currently on norepinephrine and vasopressin--to be weaned. 3. Acute on chronic hypoxic respiratory failure secondary to above. Patient is currently intubated and on mechanical ventilation. Patient is managed by Dr. Red. 4. Acute kidney injury secondary to shock. Continue IV fluids and vasopressors, continue to monitor closely 5. Lactic acidosis. 6. Paroxysmal atrial fibrillation with A. fib RVR, currently rate controlled. Eliquis is on hold. Patient is status post Kcentra for reversal of eliquis. Patient is status post IV amiodarone and now on Cardizem drip. Cardiology consult and it. 7. Chronic diastolic heart failure, stable. 8. Severe COPD, stable. 9. Obstructive sleep apnea with CPAP, noncompliance. 10. Mild intermittent asthma, stable. 11. Hyperlipidemia. 12. Gastroesophageal reflux disease and GI prophylaxis. Continue Protonix 40 mg IV daily. 13. Diabetes mellitus type 2. Continue NovoLog scale every 6 hours. Hold metformin and Januvia. 14. Severe protein calorie malnutrition due to nothing by mouth status. Patient on TPN 14. Left atrial appendage thrombus found on MIKE during last admission. Discharge plan: To be determined. Most likely subacute rehab. Impression and plan of care have been directed as dictated by the signing physician. Loreta Medellin nurse practitioner acting as scribe for signing physician.
[2018-09-22] MEDS: DEXTROSE 5% IN WATER 1,000 ML IV SCH (13:41)
[2018-09-22] MEDS: MVI, ADULT NO.4 WITH VIT K 10 ML, TRACE (CONC-1ML/DOSE) 1 ML, SODIUM ACETATE 30 MEQ, PO... IV SCH ×7 (13:41)
[2018-09-22] MEDS: SODIUM CHLORIDE 0.9% 1,000 ML IV SCH (13:41)
[2018-09-22] MEDS: ALBUMIN HUMAN 25% 50 ML in EMPTY BAG 1 BAG IVPB SCH ×2 (13:42→15:47)
[2018-09-22] MEDS: ACETAMINOPHEN IV (For NPO) 1,000 MG in EMPTY BAG 1 BAG IVPB PRN (17:09)
--- NOTE | 2018-09-22 17:35 | PN ---
PROGRESS NOTE DATE OF SERVICE: 09/22/2018 REASON FOR FOLLOWUP: Abdominal abscess from perforated peptic ulcer disease and ischemic splenic flexure. INTERVAL HISTORY: The patient is currently afebrile. The patient is hemodynamically stable, not on any pressor support. The patient's FiO2 remains stable. No other changes reported by the nursing staff. PHYSICAL EXAMINATION: Blood pressure is 128/62 with a pulse of 106, temperature 98. He is 97% on 40% FiO2. General description is an elderly male lying in bed in no distress. RESPIRATORY SYSTEM: Unlabored breathing with decreased breath sounds at the base. HEART: S1, S2. Regular rate and rhythm. ABDOMEN: Soft. Abdominal incision is currently intact. Did have output in his colostomy bag. EXTREMITIES: Some trace edema of feet. LABS: Hemoglobin 7.8, white count 8.5 with a BUN of 29, creatinine 0.92. DIAGNOSTIC IMPRESSION AND PLAN: Patient with abdominal sepsis from perforated peptic ulcer disease and ischemic splenic flexure, status post is currently infection status post corrective surgery with diverting colostomy. The patient is currently covered with Zosyn and Diflucan; to continue while monitoring his clinical course closely. Continue with supportive care. MMODL / IJN: [id number] / MTDSean
[2018-09-22 17:54] LABS: Glucose,Whole Blood 182 mg/dL (75-99)
[2018-09-22 23:21] LABS: Glucose,Whole Blood 175 mg/dL (75-99)
[2018-09-23] MEDS: PROPOFOL 1,000 MG in EMPTY BAG 1 BAG IV SCH ×4 (00:58→14:57)
[2018-09-23] MEDS: SODIUM CHLORIDE 0.9% 50 ML with VASOPRESSIN 20 UNIT IVPB SCH ×4 (02:20→17:49)
[2018-09-23] MEDS: IPRATROPIUM-ALBUTEROL 3 ML NEB INHALATION SCH ×5 (02:50→19:16)
[2018-09-23] MEDS: DEXTROSE 5% IN WATER 1,000 ML IV SCH (03:05)
[2018-09-23] MEDS: ACETAMINOPHEN IV (For NPO) 1,000 MG in EMPTY BAG 1 BAG IVPB PRN (03:37)
[2018-09-23 06:06] LABS: Glucose,Whole Blood 175 mg/dL (75-99)
[2018-09-23 06:55] LABS: Anisocytosis Moderate; HCT 28.8 % (39.0-53.0); HGB 7.6 gm/dL (13.0-17.5); Hypochromasia Marked; MCH 18.4 pg (25.0-35.0); MCHC 26.4 g/dL (31.0-37.0); MCV 69.8 fL (80.0-100.0); Mean Platelet Volume 7.1; Microcytosis Marked; Platelet Count 372 k/uL (150-450); Poikilocytosis Moderate; RBC 4.13 m/uL (4.30-5.90); RDW 20.1 % (11.5-15.5); WBC 9.4 k/uL (3.8-10.6)
[2018-09-23 07:19] LABS: African American GFR (CKD) >90 (>60 ml/min/1.73 sqM); Anion Gap 8 mmol/L; Blood Urea Nitrogen 27 mg/dL (9-20); Calcium 7.1 mg/dL (8.4-10.2); Carbon Dioxide 24 mmol/L (22-30); Chloride 119 mmol/L (98-107); Glucose 170 mg/dL (74-99); Phosphorus 3.6 mg/dL (2.5-4.5); Potassium 3.4 mmol/L (3.5-5.1); Sodium 151 mmol/L (137-145)
[2018-09-23] MEDS: PIPERACILLIN-TAZOBACTAM 3.375 GM in SODIUM CHLORIDE 0.9% 100 ML IVPB SCH ×2 (07:23→17:50)
[2018-09-23] MEDS: HYDROCORTISONE SUCCINATE 100 MG/2 ML VIAL IV SCH ×2 (07:23→19:26)
[2018-09-23] MEDS: CHLORHEXIDINE GLUCONATE 15 ML CUP MUCOUS MEM SCH ×2 (07:23→20:23)
[2018-09-23] MEDS: INSULIN ASPART (NovoLOG) 100 UNIT/ML VIAL SQ SCH ×3 (07:23→19:26)
[2018-09-23 07:37] LABS: ABG Base Excess -0.1 mmol/L; ABG HCO3 25 mmol/L (21-25); ABG Oxygen Saturation 97.3 % (94-97); ABG PCO2 40 mmHg (35-45); ABG PO2 71 mmHg (83-108); ABG TCO2 26 mmol/L (19-24); Allen Test Performed? Yes
--- NOTE | 2018-09-23 08:50 | XR ---
EXAMINATION TYPE: XR chest 1V portable DATE OF EXAM: 09/23/2018 COMPARISON: 09/22/2018 HISTORY: Tube placement TECHNIQUE: Single frontal view of the chest is obtained. FINDINGS: Diffuse airspace disease and pleural effusion. Heart enlarged. Instrumentation stable. No pneumothorax. IMPRESSION: 1. Diffuse pleural-parenchymal changes are stable correlate for diffuse pneumonia versus CHF.
--- NOTE | 2018-09-23 09:45 | P.PN ---
Subjective Progress Note Date: 09/23/18 This is a 72-year-old gentleman with history of asthma, paroxysmal atrial fibrillation, diabetes, and polycythemia who was admitted with acute abdomen and he was found to have perforated gastric ulcer and had surgery done for repair of the gastric ulcer, lysis of adhesions, decompression of the colon and small bowel and transverse colectomy. Patient is still intubated and sedated. We are seeing the patient for management of atrial fibrillation.. Patient is on IV Cardizem and also heparin. His rate is well controlled. Blood pressure well controlled. Apparently patient is having some bowel activity. We'll continue with current medical therapy and follow him Objective - Vital Signs Vital signs: Vital Signs Temp 100.7 F H 09/23/18 07:00 Pulse 101 H 09/23/18 08:30 Resp 26 H 09/23/18 08:30 BP 113/67 09/23/18 08:30 Pulse Ox 97 09/23/18 08:30 Intake & Output 09/22/18 09/23/18 09/23/18 18:59 06:59 18:59 Intake Total 3533.251 1833.980 256 Output Total 2710 2480 275 Balance 823.251 -646.020 -19 Weight 156 kg 150.9 kg Intake: IV 2012 1490 156 .9 90 ACETAMINOPHEN IV (For NPO 100 ) 1,000 mg In Empty Bag 1 bag @ 400 mls/hr IVPB Q6HR [facility] Rx#:[id number] Albumin Human 25% 50 ml 100 In Empty Bag 1 bag @ 50 mls/hr IVPB Q1H [facility] Rx#: [id number] Dextrose 5% in Water 1, 450 825 40 000 ml @ 75 mls/hr IV . [id number] [facility] Rx#:[id number] Fluconazole in NaCl,Iso- 100 Osm 200 mg In Saline 1 100ml.bag @ 100 mls/hr IVPB DAILY [facility] Rx#: [id number] Mvi, Adult No.4 with Vit 660 605 110 K 10 ml Trace (Conc-1Ml/ Dose) 1 ml Sodium Acetate 30 meq Potassium Chloride 20 meq Calcium Gluconate 1 gm Potassium Phosphate 15 mmol In Amino Acid 5%-D15w 1,000 ml @ 55 mls/hr IV .Q19H7M [facility] Rx#:[id number] Piperacillin-Tazobactam 3 150 .375 gm In Sodium Chloride 0.9% 100 ml @ 25 mls/hr IVPB Q8HR [facility] Rx# :[id number] Potassium Chloride 10 meq 200 In Water For Injection 1 100ml.bag @ 100 mls/hr IVPB Q1H [facility] Rx#: [id number] Pressure Bag 63 60 6 metroNIDAZOLE-NS PMX 500 100 mg In Saline 1 100ml.bag @ 100 mls/hr IVPB Q8HR [facility] Rx#:[id number] Intake, IV Titration 1520.251 343.980 100 Amount Heparin Sod,Pork in 0.45% 250 NaCl 25,000 unit In 0.45 % NaCl 1 250ml.bag @ 6.1 UNITS/KG/HR 9.998 mls/hr IV .Q24H [facility] Rx#: [id number] Mvi, Adult No.4 with Vit 1031.25 K 10 ml Trace (Conc-1Ml/ Dose) 1 ml Sodium Acetate 30 meq Potassium Chloride 20 meq Calcium Gluconate 1 gm Potassium Phosphate 15 mmol In Amino Acid 5%-D15w 1,000 ml @ 55 mls/hr IV .Q19H7M [facility] Rx#:[id number] Propofol 1,000 mg In 239.001 343.980 100 Empty Bag 1 bag @ Titrate IV .Q0M [facility] Rx#: [id number] Output: Gastric Drainage 200 Drainage 60 100 Abdomen 60 100 Urine 2650 2180 275 Other: Voiding Method Indwelling Catheter Indwelling Catheter ABP, PAP, CO, CI - Last Documented Arterial Blood Pressure 112/52 - Exam GENERAL EXAM: Patient is intubated and sedated HEENT: Normocephalic. N NECK: No masses, no nuchal rigidity. CHEST: No chest wall deformity. LUNGS: Decreased air exchange HEART: S1 and S2 normal. Irregular heart rhythm ABDOMEN: No hepatosplenomegaly, normal bowel sounds, no guarding or rigidity. SKIN: No rashes CENTRAL NERVOUS SYSTEM: Deferred EXTREMITIES: No cyanosis, clubbing or edema. - Labs CBC & Chem 7: 09/23/18 06:45 09/23/18 06:45 Labs: Abnormal Lab Results - Last 24 Hours (Table) 09/22/18 09/22/18 09/22/18 Range/Units 12:29 17:53 23:08 RBC (4.30-5.90) m/uL Hgb (13.0-17.5) gm/dL Hct (39.0-53.0) % MCV (80.0-100.0) fL MCH (25.0-35.0) pg MCHC (31.0-37.0) g/dL RDW (11.5-15.5) % APTT (22.0-30.0) sec ABG pO2 (83-108) mmHg ABG Total CO2 (19-24) mmol/L ABG O2 Saturation (94-97) % Sodium (137-145) mmol/L Potassium (3.5-5.1) mmol/L Chloride (98-107) mmol/L BUN (9-20) mg/dL Glucose (74-99) mg/dL POC Glucose (mg/dL) 202 H 182 H 175 H (75-99) mg/dL Calcium (8.4-10.2) mg/dL 09/23/18 09/23/18 09/23/18 Range/Units 06:05 06:45 06:45 RBC 4.13 L (4.30-5.90) m/uL Hgb 7.6 L (13.0-17.5) gm/dL Hct 28.8 L (39.0-53.0) % MCV 69.8 L (80.0-100.0) fL MCH 18.4 L (25.0-35.0) pg MCHC 26.4 L (31.0-37.0) g/dL RDW 20.1 H (11.5-15.5) % APTT (22.0-30.0) sec ABG pO2 (83-108) mmHg ABG Total CO2 (19-24) mmol/L ABG O2 Saturation (94-97) % Sodium 151 H (137-145) mmol/L Potassium 3.4 L (3.5-5.1) mmol/L Chloride 119 H (98-107) mmol/L BUN 27 H (9-20) mg/dL Glucose 170 H (74-99) mg/dL POC Glucose (mg/dL) 175 H (75-99) mg/dL Calcium 7.1 L (8.4-10.2) mg/dL 09/23/18 09/23/18 Range/Units 06:45 07:24 RBC (4.30-5.90) m/uL Hgb (13.0-17.5) gm/dL Hct (39.0-53.0) % MCV (80.0-100.0) fL MCH (25.0-35.0) pg MCHC (31.0-37.0) g/dL RDW (11.5-15.5) % APTT 34.0 H (22.0-30.0) sec ABG pO2 71 L (83-108) mmHg ABG Total CO2 26 H (19-24) mmol/L ABG O2 Saturation 97.3 H (94-97) % Sodium (137-145) mmol/L Potassium (3.5-5.1) mmol/L Chloride (98-107) mmol/L BUN (9-20) mg/dL Glucose (74-99) mg/dL POC Glucose (mg/dL) (75-99) mg/dL Calcium (8.4-10.2) mg/dL Microbiology - Last 24 Hours (Table) 09/16/18 14:25 Blood Culture - Final Blood No Growth after 144 hours Assessment and Plan (1) Renal insufficiency syndrome Current Visit: Yes Status: Acute Code(s): N28.9 - DISORDER OF KIDNEY AND URETER, UNSPECIFIED SNOMED Code(s): 501892127 (2) A-fib Current Visit: No Status: Acute Priority: High Code(s): I48.91 - UNSPECIFIED ATRIAL FIBRILLATION SNOMED Code(s): 55342176 Plan: Continue with IV Cardizem and heparin. We'll switch to by mouth medications when patient is able to take medication by mouth. We'll follow
--- NOTE | 2018-09-23 10:11 | P.PN ---
Subjective Progress Note Date: 09/23/18 CHIEF COMPLAINT: abdominal pain HISTORY OF PRESENT ILLNESS: Patient s/p exploratory laparotomy, lysis of adhesions, decompression of colon and small bowel, transverse colectomy with takedown of splenic flexure, and repair of gastric ulcer with Dr. De Leon secondary to pneumoperitoneum, perforated gastric ulcer, ischemic colon at splenic flexure, and bowel obstruction. POD #7. The patient remains intubated on mechanical ventilation in the intensive care unit. Weaning attempts have been unsuccessful. WBC 9.4. Hemoglobin 7.6. PHYSICAL EXAM: VITAL SIGNS: Reviewed GENERAL: Well-developed in no acute distress. Patient sedated on mechanical ventilation HEENT: ET tube noted. NG to LIS. No sclera icterus. Extraocular movements grossly intact. Moist buccal mucosa. Head is atraumatic, normocephalic. No nasal drainage. NECK: Supple without lymphadenopathy. CHEST: Non-labored respirations and equal bilateral excursions-remains on v entilator. CARDIOVASCULAR: Irregular rhythm. Palpable 2+ radial pulses. ABDOMEN: Abdomen nondistended, but obese. Dressing CDI with packing to midline incision. CHAVEZ drain with serosanguineous drainage. Left-sided colostomy with stool present. Ostomy pink/red. MUSCULOSKELETAL: No clubbing or cyanosis. Generalized edema NEUROLOGIC: Patient sedated on mechanical ventilation PSYCH: Patient sedated on mechanical ventilation SKIN: Well perfused. Good skin turgor. ASSESSMENT: 1. Abdominal pain 2. Pneumoperitoneum 3. S/P exploratory laparotomy, lysis of adhesions, decompression of colon and small bowel, transverse colectomy with takedown of splenic flexure, and repair of gastric ulcer secondary to pneumoperitoneum, perforated gastric ulcer, ischemic colon at splenic flexure, and bowel obstruction 4. Septic shock, present on admission secondary to above 5. History of atrial fibrillation, on long-term anticoagulation with Eliquis 6. History of bowel obstruction 7. History of laparoscopic Bruce fundoplication 8. History of hiatal hernia repair with mesh PLAN: 1. Continue ventilator management per Dr. Mendoza 2. Continue TPN. No tube feedings until patient able to be extubated. Will require barium swallow to ensure no leak before initiating oral intake. 3. Place wound vac to abdominal incision today 4. Ostomy resource RN on consult 5. Continue antibiotics. Dr. Benedict on consult. 6. Anticoagulation per cardiology. Currently on heparin drip. Nurse practitioner note has been reviewed by physician. Signing provider agrees with the documented findings, assessment, and plan of care. Objective - Vital Signs Vital signs: Vital Signs Temp 100.7 F H 09/23/18 07:00 Pulse 101 H 09/23/18 08:30 Resp 26 H 09/23/18 08:30 BP 113/67 09/23/18 08:30 Pulse Ox 97 09/23/18 08:30 Intake & Output 09/22/18 09/23/18 09/23/18 18:59 06:59 18:59 Intake Total 3533.251 1833.980 256 Output Total 2710 2480 275 Balance 823.251 -646.020 -19 Weight 156 kg 150.9 kg Intake: IV 2013 1490 156 .9 90 ACETAMINOPHEN IV (For NPO 100 ) 1,000 mg In Empty Bag 1 bag @ 400 mls/hr IVPB Q6HR PRN Rx#:[id number] Albumin Human 25% 50 ml 100 In Empty Bag 1 bag @ 50 mls/hr IVPB Q1H [facility] Rx#: [id number] Dextrose 5% in Water 1, 450 825 40 000 ml @ 75 mls/hr IV . [id number] [facility] Rx#:[id number] Fluconazole in NaCl,Iso- 100 Osm 200 mg In Saline 1 100ml.bag @ 100 mls/hr IVPB DAILY [facility] Rx#: [id number] Mvi, Adult No.4 with Vit 660 605 110 K 10 ml Trace (Conc-1Ml/ Dose) 1 ml Sodium Acetate 30 meq Potassium Chloride 20 meq Calcium Gluconate 1 gm Potassium Phosphate 15 mmol In Amino Acid 5%-D15w 1,000 ml @ 55 mls/hr IV .Q19H7M [facility] Rx#:[id number] Piperacillin-Tazobactam 3 150 .375 gm In Sodium Chloride 0.9% 100 ml @ 25 mls/hr IVPB Q8HR [facility] Rx# :[id number] Potassium Chloride 10 meq 200 In Water For Injection 1 100ml.bag @ 100 mls/hr IVPB Q1H [facility] Rx#: [id number] Pressure Bag 63 60 6 metroNIDAZOLE-NS PMX 500 100 mg In Saline 1 100ml.bag @ 100 mls/hr IVPB Q8HR [facility] Rx#:[id number] Intake, IV Titration 1520.251 343.980 100 Amount Heparin Sod,Pork in 0.45% 250 NaCl 25,000 unit In 0.45 % NaCl 1 250ml.bag @ 6.1 UNITS/KG/HR 9.998 mls/hr IV .Q24H [facility] Rx#: [id number] Mvi, Adult No.4 with Vit 1031.25 K 10 ml Trace (Conc-1Ml/ Dose) 1 ml Sodium Acetate 30 meq Potassium Chloride 20 meq Calcium Gluconate 1 gm Potassium Phosphate 15 mmol In Amino Acid 5%-D15w 1,000 ml @ 55 mls/hr IV .Q19H7M [facility] Rx#:[id number] Propofol 1,000 mg In 239.001 343.980 100 Empty Bag 1 bag @ Titrate IV .Q0M [facility] Rx#: [id number] Output: Gastric Drainage 200 Drainage 60 100 Abdomen 60 100 Urine 2650 2180 275 Other: Voiding Method Indwelling Catheter Indwelling Catheter ABP, PAP, CO, CI - Last Documented Arterial Blood Pressure 112/52 - Labs CBC & Chem 7: 09/23/18 06:45 09/23/18 06:45 Labs: Abnormal Lab Results - Last 24 Hours (Table) 09/22/18 09/22/18 09/22/18 Range/Units 12:29 17:53 23:08 RBC (4.30-5.90) m/uL Hgb (13.0-17.5) gm/dL Hct (39.0-53.0) % MCV (80.0-100.0) fL MCH (25.0-35.0) pg MCHC (31.0-37.0) g/dL RDW (11.5-15.5) % APTT (22.0-30.0) sec ABG pO2 (83-108) mmHg ABG Total CO2 (19-24) mmol/L ABG O2 Saturation (94-97) % Sodium (137-145) mmol/L Potassium (3.5-5.1) mmol/L Chloride (98-107) mmol/L BUN (9-20) mg/dL Glucose (74-99) mg/dL POC Glucose (mg/dL) 202 H 182 H 175 H (75-99) mg/dL Calcium (8.4-10.2) mg/dL 09/23/18 09/23/18 09/23/18 Range/Units 06:05 06:45 06:45 RBC 4.13 L (4.30-5.90) m/uL Hgb 7.6 L (13.0-17.5) gm/dL Hct 28.8 L (39.0-53.0) % MCV 69.8 L (80.0-100.0) fL MCH 18.4 L (25.0-35.0) pg MCHC 26.4 L (31.0-37.0) g/dL RDW 20.1 H (11.5-15.5) % APTT (22.0-30.0) sec ABG pO2 (83-108) mmHg ABG Total CO2 (19-24) mmol/L ABG O2 Saturation (94-97) % Sodium 151 H (137-145) mmol/L Potassium 3.4 L (3.5-5.1) mmol/L Chloride 119 H (98-107) mmol/L BUN 27 H (9-20) mg/dL Glucose 170 H (74-99) mg/dL POC Glucose (mg/dL) 175 H (75-99) mg/dL Calcium 7.1 L (8.4-10.2) mg/dL 09/23/18 09/23/18 Range/Units 06:45 07:24 RBC (4.30-5.90) m/uL Hgb (13.0-17.5) gm/dL Hct (39.0-53.0) % MCV (80.0-100.0) fL MCH (25.0-35.0) pg MCHC (31.0-37.0) g/dL RDW (11.5-15.5) % APTT 34.0 H (22.0-30.0) sec ABG pO2 71 L (83-108) mmHg ABG Total CO2 26 H (19-24) mmol/L ABG O2 Saturation 97.3 H (94-97) % Sodium (137-145) mmol/L Potassium (3.5-5.1) mmol/L Chloride (98-107) mmol/L BUN (9-20) mg/dL Glucose (74-99) mg/dL POC Glucose (mg/dL) (75-99) mg/dL Calcium (8.4-10.2) mg/dL Microbiology - Last 24 Hours (Table) 09/16/18 14:25 Blood Culture - Final Blood No Growth after 144 hours Assessment and Plan (1) Acute abdomen Current Visit: Yes Status: Acute Code(s): R10.0 - ACUTE ABDOMEN SNOMED Code(s): 9417275 (2) A-fib Current Visit: No Status: Acute Priority: High Code(s): I48.91 - UNSPECIFIED ATRIAL FIBRILLATION SNOMED Code(s): 30157823 (3) Abdominal pain Current Visit: No Status: Acute Code(s): R10.9 - UNSPECIFIED ABDOMINAL PAIN SNOMED Code(s): 71547039 (4) S/P exploratory laparotomy Current Visit: No Status: Acute Code(s): Z98.89 - OTHER SPECIFIED POSTPROCEDURAL STATES * DO NOT USE * SNOMED Code(s): 874168673
[2018-09-23] MEDS ORDERED: FUROSEMIDE 10 MG/ML 4 ML VIAL IV SCH (10:30)
[2018-09-23] MEDS: PANTOPRAZOLE 40 MG/10 ML VIAL IVP SCH (11:09)
[2018-09-23] MEDS: POTASSIUM CHLORIDE 20 MEQ in WATER FOR INJECTION 1 100ML.BAG IVPB SCH ×2 (11:10→14:58)
[2018-09-23] MEDS ORDERED: FUROSEMIDE 10 MG/ML 4 ML VIAL IV STA (11:25)
--- NOTE | 2018-09-23 11:44 | US ---
EXAMINATION TYPE: US chest DATE OF EXAM: 09/23/2018 COMPARISON: NONE CLINICAL HISTORY: Markings for thoracentesis by pulmonary staff. Pleural effusion. Took 3 people to h old patient up. Not marked due to large lung tissue visualized. TECHNIQUE: Targeted ultrasound of the posterior lower left hemithorax EXAM MEASUREMENTS: Left Pleural Effusion pocket size: 2 cm Left skin surface to fluid distance: 2.1 cm Left side not marked for thoracentesis due to large area of lung tissue visualized. Pulmonologists are able to review the images in the patient?s EMR. IMPRESSIONS: Small left pleural effusion
[2018-09-23 11:51] LABS: Glucose,Whole Blood 202 mg/dL (75-99)
[2018-09-23] MEDS: FLUCONAZOLE IN NACL,ISO-OSM 200 MG in SALINE 1 100ML.BAG IVPB SCH (12:08)
--- NOTE | 2018-09-23 12:58 | P.PN ---
Subjective Progress Note Date: 09/23/18 Principal diagnosis: Perforated gastric ulcer/ischemic bowel, status post exploratory laparotomy This is a 72-year-old male patient morbid obesity with known history of COPD, asthma, proximal atrial fibrillation, diabetes mellitus, history of polycythemia with a Hamilton hemoglobin syndrome, hypertension and arthritis, who has been oxygen dependent at 2 L about 2 by nasal cannula on a chronic basis. The patient presented yesterday to the emergency department with extreme abdominal pain. The patient was apparently a constipated for a week and he was doing enemas at home. He ultimately felt a pop in the lower portion of his abdomen on the day of the presentation and he came in with severe abdominal pain. He was having emesis. CAT scan of the abdomen was done in the emergency department the patient was found to have no apparent 20. The patient had abdominal distention and his abdominal size was twice the normal. His blood pressure was in the low 90s. He was tachycardic with a heart rate in the 1:30. He was given IV fluids. He was given IV Zosyn. Blood cultures were sent. He was seen by general surgery and the patient was taken to the operating room, and the patient was found to have perforated gastric ulcer, ischemic colon at the site of the splenic flexure of bowel obstruction. The patient underwent expiratory laparotomy, lysis of adhesions, decompression of the colon and small bowel, transverse colectomy and takedown of the splenic flexure and repair of the gastric ulcer. Estimated blood loss is only 100 mL. The patient overnight was brought into the intensive care unit. The patient was resuscitated aggressively with IV fluids. He was given colloids and crystalloids. He is given 8 L of IV fluids. He was started on pressors and currently norepinephrine infusion is running at 62 g per minute. The patient was also started on physiologic dose vasopressin at 0.03 units per minute. Currently is on propofol at 14 mics for sedation. He is receiving normal saline at the rate of 150 mL an hour. Urine output is in order of 20-30 mL an hour. He is warm. His temperature was 100.5. He is on a mechanical ventilator. He is on assist-control mode of ventilation with a tidal volume of 550 at the rate of 26 with an FiO2 of 80% and a PEEP of 5. Blood gases from this morning shows a pH of 7.315 with a pCO2 of 40 and pO2 of 134. His echocardiogram from previous admissions showed an ejection fraction of 55-60%. He had a preserved LV function. No significant valvular abnormalities. Pulmonary to pressure estimated to be 44. His cardiac rhythm is currently sinus. The patient has a CHAVEZ drain in his abdomen and this is on the r ight side and output is around 80-90 mL of serous material. He also has a colostomy and the site is nonfunctioning it seems to be viable at this point. Note that the patient was in the hospital and he was discharged home on 09/12/2018 after being treated for a flutter/failure with rapid ventricular response and shortness of breath and acute diastolic heart failure. Upon discharge, the patient was started on amiodarone thousand milligrams twice a day, Eliquis, Aldactone, and he was given Augmentin on outpatient basis and a prednisone burst taper. He was discharged home on a 40 mg of prednisone. On today's evaluation of 09/18/2018, the patient is postop day #2. The patient is still sedated with propofol at 35 g per KG per minute. The patient is was sedated and calm and comfortable on a mechanical ventilator essentially on the same vent setting with a tidal volume of 550 and FiO2 of 50% with a PEEP of 5 and a respiratory rate of 26. The morning blood gases showed a pH of 7.36 with a pCO2 of 33 and pO2 of 109 and this was done and FiO2 of 50%. Chest x-ray showing cardiomegaly and some mild pulmonary vascular congestion. ET tube is in a good location. The patient has no significant rest or secretions. Hemodynamically, the patient has been aggressively resuscitated IV fluids. The patient is currently on normal saline the rate of 150 mL an hour. The patient is producing more than 50 mL an hour of urine output. The patient is still requiring pressors. The patient is on physiologic dose vasopressin. The patient is also on norepinephrine infusion which is currently running at 21 g per minute. The patient is afebrile. The patient is nothing by mouth. The patient has bowel sounds and the patient has also has a colostomy in place. NG tube is in place output has been around 200 mL over the past 8 hours. Earlier this morning, the patient was seen to be in tachycardia. A 12-lead EKG was done and the rhythm is essentially undetermined. This is most likely supraventricular rhythm, A. fib versus flutter. SCDs felt to be less likely. A. fib is favored nontender the patient has had previous history of atrial fibrillation. This has not affected the patient's overall hemodynamics and blood pressure control. The white cell count is at 9.6. Hemoglobin was 8.5. The patient continues to be in acute kidney failure. Creatinine is up to 1.80 is stable compared to yesterday. On today's evaluation of 09/19/2018 the patient is postop day #3. On today's evaluation that has been further progress and the patient's blood pressure. Currently is only on 5 mics of norepinephrine infusion the patient is also on vasopressin physiologic dose. There has been considerable improvement in the pressor requirements over the past 24-48 hours. He is still producing more than 100 mL of urine output. Afebrile. Still intubated on a mechanical ventilator. Vent settings are essentially unchanged compared to yesterday with a tidal volume of 550 FiO2 of 50% with a PEEP of 5 and the respiratory rate of 26. Blood gases from today showed a pH of 7.36 with a pCO2 of 35 and pO2 of 121 and this was done and FiO2 of 50%. The patient is was arrested on propofol which is running at 40 mics. Chest x-ray from today shows bilateral pleural effusion and ET tube is in a good location. The patient has positive bowel sounds. The patient is producing some stool activity in his colostomy bag. The CHAVEZ drain output is minimal. NG tube output is minimal. The patient is still on broad- spectrum antibiotic coverage. Cultures from the abdominal wound have been all negative. White cell count is not elevated. Hemoglobin stable at 7.8. Family is at the bedside. As far as atrial fibrillation, the patient was bolused with amiodarone and following that the patient was maintained at a lower heart rate yet still in atrial fibrillation. No anticoagulants for now. The function is improving and the creatinine is down to 1.2. On 09/20/2018 patient is postop day #4. The patient is sedated this morning. The patient is off pressors and norepinephrine infusion and vasopressin has been discontinued. Urine output is excellent. We have noted increased in output from the CHAVEZ drain which has put out approximately 400 mL over the past few hours. Meanwhile the, surgical wound site is dry clean and intact. The patient has a functional colostomy and there is stool output in the colostomy bag. The patient remains on a mechanical ventilator. Vent settings are essentially unchanged. The patient had a blood gases this morning that showed a pH of 7.4 with a pCO2 of 34 and pO2 of 76. The patient had a chest x-ray that showed vascular congestion and edema and bilateral pleural effusions. The patient is on TPN for nutritional support. IV fluids have been cut down to KVO. He is on propofol for sedation. Elisha output is minimal at this point in time. No fever. No chills. Sedation holiday was given yesterday at the patient was not ready for any weaning. The same will be done today. Meanwhile, the patient is still in atrial fibrillation. The patient was taken off the amiodarone drip. The patient was started in IV heparin. Cardizem drip will be started today for rate control. The patient is afebrile. Renal function is normalized and the creatinine is down to 1.02. On 09/21/2018 patient is postop day #5. Sedation holiday was given. The patient woke up appropriately. Unable to give me good weaning parameters. Given a showed spontaneous breathing trial and he feels that the patient became tachypneic tachycardic and the trial was discontinued. He is back on assist control mode of ventilation. Chest x-ray showing pulmonary vessel congestion/edema. The patient is a negative fluid balance of 1.3 L and the patient is producing excellent urine output. His dose of Lasix will be given to augment the urine output and establish a better negative fluid balance over the next 24 hours. Otherwise, he started on TPN for nutritional support. He is on a Cardizem drip for rate control. He is in atrial fibrillation. He is on IV heparin. He is afebrile. He is on broad-spectrum antibiotics. The ostomy is viable and there is stool within the bag. Discussed the case with general surgery and no plans for feeding at this point in time. A barium swallow needs to be done later stage to make sure there is no bowel leak. Reevaluated today on 09/22/2018, patient remains on mechanical ventilation, remains on multiple meds, but not requiring any pressors. He is on vent settings assist-control mode of mechanical ventilation with tidal volume of 550 rate of 26, FiO2 40% PEEP of 5. Patient remains on Cardizem, on TPN, heparin, Zosyn and Diflucan and on propofol drip. Weaning trial failed yesterday, and the same happened today, patient was taken off propofol, and after few hours he became extremely agitated, tachypneic, tachycardic, and had to place him back on propofol. However his mental status was noted to be intact, and he was appropriate off propofol. I have a feeling that the patient may eventually require tracheostomy if he continues to fail daily weaning trials. Labs were reviewed his sodium is elevated chloride is 122, hence his IV fluid will be changed to D5W. His ABG showed a pO2 of 89 pCO2 of 35 pH of 7.43. CBC is relatively unremarkable WBC count is 8.5 hemoglobin is 7.8. His ostomy is viable. Patient remains on TPN. Reevaluated today on 09/23/2018, remains in the ICU, mechanically ventilated, not requiring any pressors, ventilator settings are basically the same as noted yesterday, tidal volume of 550 assist-control rate of 26 FiO2 of 40% PEEP of 5. Remains on antibiotics, heparin, TPN, Cardizem remains on propofol, chest x-ray is showing worsening airspace disease especially in the left lung, ultrasound of the chest did not reveal significant pleural effusion for thoracentesis. Nanda ent would have sedation interruption today, however based on the chest x-ray appearance, I have a feeling the patient will not tolerate any weaning. I am a bit concerned that the patient may be developing or having evolving ARDS picture and that is yet to be determined. In the meantime I will continue patient on diuretics, his urine output is excellent about 150 mL per hour. I kept him on D5W at 75 mL per hour. And I have recommended CVP monitoring. CBC today showed WBC count of 9.4 hemoglobin of 7.6. ABG this morning showed a pO2 of 71 pCO2 of 40 0 pH of 7.40 sodium remains elevated at 151, renal profile is relatively normal otherwise. Family is at bedside, and updated on his condition Objective - Vital Signs Vital signs: Vital Signs Temp 100.7 F H 09/23/18 07:00 Pulse 96 09/23/18 12:00 Resp 26 H 09/23/18 12:00 BP 112/64 09/23/18 12:00 Pulse Ox 97 09/23/18 12:00 Intake & Output 09/22/18 09/23/18 09/23/18 18:59 06:59 18:59 Intake Total 3533.251 1833.980 778 Output Total 2710 2480 1300 Balance 823.251 -646.020 -522 Weight 156 kg 150.9 kg Intake: IV 2013 1490 678 .9 90 ACETAMINOPHEN IV (For NPO 100 ) 1,000 mg In Empty Bag 1 bag @ 400 mls/hr IVPB Q6HR PRN Rx#:[id number] Albumin Human 25% 50 ml 100 In Empty Bag 1 bag @ 50 mls/hr IVPB Q1H [facility] Rx#: [id number] Dextrose 5% in Water 1, 450 825 230 000 ml @ 75 mls/hr IV . [id number] [facility] Rx#:[id number] Fluconazole in NaCl,Iso- 100 100 Osm 200 mg In Saline 1 100ml.bag @ 100 mls/hr IVPB DAILY [facility] Rx#: [id number] Mvi, Adult No.4 with Vit 660 605 330 K 10 ml Trace (Conc-1Ml/ Dose) 1 ml Sodium Acetate 30 meq Potassium Chloride 20 meq Calcium Gluconate 1 gm Potassium Phosphate 15 mmol In Amino Acid 5%-D15w 1,000 ml @ 55 mls/hr IV .Q19H7M [facility] Rx#:[id number] Piperacillin-Tazobactam 3 150 .375 gm In Sodium Chloride 0.9% 100 ml @ 25 mls/hr IVPB Q8HR [facility] Rx# :[id number] Potassium Chloride 10 meq 200 In Water For Injection 1 100ml.bag @ 100 mls/hr IVPB Q1H [facility] Rx#: [id number] Pressure Bag 63 60 18 metroNIDAZOLE-NS PMX 500 100 mg In Saline 1 100ml.bag @ 100 mls/hr IVPB Q8HR [facility] Rx#:[id number] Intake, IV Titration 1520.251 343.980 100 Amount Heparin Sod,Pork in 0.45% 250 NaCl 25,000 unit In 0.45 % NaCl 1 250ml.bag @ 6.1 UNITS/KG/HR 9.998 mls/hr IV .Q24H [facility] Rx#: [id number] Mvi, Adult No.4 with Vit 1031.25 K 10 ml Trace (Conc-1Ml/ Dose) 1 ml Sodium Acetate 30 meq Potassium Chloride 20 meq Calcium Gluconate 1 gm Potassium Phosphate 15 mmol In Amino Acid 5%-D15w 1,000 ml @ 55 mls/hr IV .Q19H7M [facility] Rx#:[id number] Propofol 1,000 mg In 239.001 343.980 100 Empty Bag 1 bag @ Titrate IV .Q0M [facility] Rx#: [id number] Output: Gastric Drainage 200 Drainage 60 100 Abdomen 60 100 Urine 2650 2180 1300 Other: Voiding Method Indwelling Catheter Indwelling Catheter ABP, PAP, CO, CI - Last Documented Arterial Blood Pressure 112/52 - Exam Physical Exam: Revealed 72-year-old white male on mechanical ventilation, sedated, Head: Atraumatic, normocephalic. HEENT:[Neck is supple.] [No neck masses.] [No thyromegaly.] [No JVD.] Endotracheal tube is intact. Moist mucous membranes noted. Chest: [Symmetrical chest expansion, crackles and rhonchi noted bilaterally Cardiac Exam: [Normal S1 and S2, no S3 gallop, no murmur.] Abdomen: [Postsurgical, Soft, nontender, no megaly, no rebound, no guarding, diminished bowel sounds, colostomy seems to be viable with healthy tissue, and some output noted in the colostomy bag. Abdominal incision is dry and clean. Extremities: [No clubbing, trace of bipedal edema. edema, no cyanosis.] Neurological Exam: Cannot be assessed, patient is on propofol, however according to the nurse after he was off propofol for a couple of hours, he was noted to have intact mental status and he was appropriately. Lymphatics: No lymphadenopathy. Skin: No rashes. Psychiatric: Could not be assessed. - Labs CBC & Chem 7: 09/23/18 06:45 09/23/18 06:45 Labs: Abnormal Lab Results - Last 24 Hours (Table) 09/22/18 09/22/18 09/23/18 Range/Units 17:53 23:08 06:05 RBC (4.30-5.90) m/uL Hgb (13.0-17.5) gm/dL Hct (39.0-53.0) % MCV (80.0-100.0) fL MCH (25.0-35.0) pg MCHC (31.0-37.0) g/dL RDW (11.5-15.5) % APTT (22.0-30.0) sec ABG pO2 (83-108) mmHg ABG Total CO2 (19-24) mmol/L ABG O2 Saturation (94-97) % Sodium (137-145) mmol/L Potassium (3.5-5.1) mmol/L Chloride (98-107) mmol/L BUN (9-20) mg/dL Glucose (74-99) mg/dL POC Glucose (mg/dL) 182 H 175 H 175 H (75-99) mg/dL Calcium (8.4-10.2) mg/dL 09/23/18 09/23/18 09/23/18 Range/Units 06:45 06:45 06:45 RBC 4.13 L (4.30-5.90) m/uL Hgb 7.6 L (13.0-17.5) gm/dL Hct 28.8 L (39.0-53.0) % MCV 69.8 L (80.0-100.0) fL MCH 18.4 L (25.0-35.0) pg MCHC 26.4 L (31.0-37.0) g/dL RDW 20.1 H (11.5-15.5) % APTT 34.0 H (22.0-30.0) sec ABG pO2 (83-108) mmHg ABG Total CO2 (19-24) mmol/L ABG O2 Saturation (94-97) % Sodium 151 H (137-145) mmol/L Potassium 3.4 L (3.5-5.1) mmol/L Chloride 119 H (98-107) mmol/L BUN 27 H (9-20) mg/dL Glucose 170 H (74-99) mg/dL POC Glucose (mg/dL) (75-99) mg/dL Calcium 7.1 L (8.4-10.2) mg/dL 09/23/18 09/23/18 Range/Units 07:24 11:49 RBC (4.30-5.90) m/uL Hgb (13.0-17.5) gm/dL Hct (39.0-53.0) % MCV (80.0-100.0) fL MCH (25.0-35.0) pg MCHC (31.0-37.0) g/dL RDW (11.5-15.5) % APTT (22.0-30.0) sec ABG pO2 71 L (83-108) mmHg ABG Total CO2 26 H (19-24) mmol/L ABG O2 Saturation 97.3 H (94-97) % Sodium (137-145) mmol/L Potassium (3.5-5.1) mmol/L Chloride (98-107) mmol/L BUN (9-20) mg/dL Glucose (74-99) mg/dL POC Glucose (mg/dL) 202 H (75-99) mg/dL Calcium (8.4-10.2) mg/dL Microbiology - Last 24 Hours (Table) 09/16/18 14:25 Blood Culture - Final Blood No Growth after 144 hours Assessment and Plan Assessment: 1 perforated gastric ulcer/ischemic colon at the level of splenic fracture with bowel obstruction. Status post exploratory laparotomy, lysis of adhesions, repair of a gastric ulcer, transverse colectomy postoperative day #7 2 septic shock secondary to abdominal sepsis, recovered. 3 acute hypoxic respiratory failure secondary to septic shock and abdominal sepsis. 4 acute kidney injury secondary to above, recovered 5 mild lactic acidosis lactic acid level is down to 2.8 6 history of paroxysmal atrial fibrillation with a recent admission to the hospital because of A. fib/flutter with RVR current rhythm is sinus. Remains on heparin and Cardizem. 7 COPD, presently inactive. 8 bronchial asthma presently inactive 9 CHF with diastolic heart failure 10 obstructive sleep apnea noncompliant with CPAP therapy 11 diabetes mellitus type 2, on insulin protocol. 12 chronic hypoxic respiratory failure with an oxygen at 2 L per minute nasal cannula on outpatient basis 13 worsening airspace disease noted on chest x-ray today, this could be cardiogenic or noncardiogenic pulmonary edema it is yet to be determined. Recommendation: Continue ventilatory support, antibiotics, GI and DVT prophylaxis, diuretics, IV fluids to correct his hypernatremia, using D5W, monitor daily chest x-ray for evolving ARDS, continue TPN, continue to monitor daily electrolytes and hopefully correct his hypernatremia with D5W. Continue daily interruption of sedation and assessment of mental status, however based on the chest x-ray appearance, patient is definitely not ready for weaning trials. Family was updated on his condition, made aware that he does have poor prognosis, and made aware that we may eventually recommend tracheostomy. We'll continue to follow. Critical care time is 42 minutes Time with Patient: Greater than 30
--- NOTE | 2018-09-23 14:07 | P.PN ---
Subjective Progress Note Date: 09/23/18 This is a 72-year-old male patient of Dr. Cevallos with past history of chronic hypoxic respiratory failure on home O2 obstructive sleep apnea on CPAP, paroxysmal atrial fibrillation, chronic diastolic heart failure, severe COPD, morbid obesity with BMI of 47, hypertension hypertensive cardiovascular disease, mild intermittent asthma, hyperlipidemia, gastroesophageal reflux disease, diabetes mellitus type 2, cellulitis of the abdominal wall. Patient was recently hospitalized and discharged home on September 12 and treated for acute diastolic heart failure, atrial flutter/atrial fibrillation with rapid ventricular response status post MIKE which found a small atrial appendage thrombus. The patient was stabilized and discharged home in stable condition and had been started on amiodarone, eliquis, Aldactone, prednisone and Augmentin. Patient presented to [facility] emergency center for evaluation. He was afebrile, heart rate 130s, blood pressure 119/79, pulse ox 95%. White count was 5.9, hemoglobin 10.6, platelet count 4-72. Sodium 133, potassium 5.4, chloride 96, CO2 20, BUN 36 and creatinine 1.6, blood sugar 178. CAT scan of the abdomen and pelvis revealed pneumoperitoneum. Bowel distention. Bowel ischemia not excluded. No clear obstruction. Findings may be due to ileus. Patient was provided IV fluids, pain medication and Zosyn patient was seen by Dr. De Leon in the emergency center and taken to the OR found to have a perforated gastric ulcer, ischemic colon at the site of splenic flexure of the bowel obstruction. Patient underwent exploratory laparotomy, lysis of adhesions, decompression of the colon and small bowel, transverse colectomy and takedown of splenic flexure and repair of a gastric ulcer. Patient was then transferred to the intensive care unit and followed by Dr. Red. He is status post greater than 8 L of IV fluid and on norepinephrine and subsequent started on vasopressin. Urine output has been marginal patient remains intubated and on mechanical ventilation with tidal volume 550, FiO2 of 50% and PEEP of 5. The patient is on sedation. 09/18: Patient remains in intensive care unit intubated and on mechanical vent ilation with tidal volume 550, FiO2 50, PEEP 5. NG tube with black drainage. He is on 22 mics of levo fed and 0.03 vasopressin. Patient was started on amiodarone due to continued A. fib with RVR. Heart rate is in the 140s, blood pressure systolic 99. A.m. lab work white count 9.6, hemoglobin 8.5, platelet count 368. Sodium 136, potassium 4.9, chloride 108, CO2 18, BUN 39 creatinine 1.81. Blood sugars are running between 141 and 161. Urine culture is in progress and blood culture is no growth at [address] Benedict is recommended continuing Zosyn and Diflucan. Son is at bedside and all questions have been answered. 09/19: Patient remains in the intensive care unit intubated and on mechanical ventilation with tidal volume 550, FiO2 40 and PEEP of 5. Norepinephrine is now down to 5 mics and minimal on vasopressin. Urine output has been more than adequate. He has been afebrile. He is continued on sedation with propofol. A sedation holiday was attempted today but patient became tachypneic. Patient is back on sedation with plan for tomorrow for sedation holiday tomorrow. Patient has had output from colostomy and passing gas and colostomy. Decreased output from NG tube and from CHAVEZ drain. WBC 8.6, hemoglobin 7.8. He has been afebrile, heart rate 99, blood pressure 90/63. TPN has been started. Amiodarone drip to be discontinued. court recording monitor is currently A. fib with controlled rate. 09/20 Patient remains in ICU, currently nothing by mouth, CHAVEZ drain has drained ov er 2 L in 24 hours, patient has been off pressors, urine output is normal, patient is still on TPN, patient still has abdominal discomfort, otherwise no chest pain no shortness of breath, no palpitations. Hemoglobin currently at 7.4 from an admitting hemoglobin of 9.4, iron studies to be done, agent has initial myelocytes on admission, creatinine 1.02 from 1.2, surgical incision is dry, there is stool output in the colostomy bag, patient remains on mechanical ventilator, unchanged and settings. Followed closely by pulmonary medicine, Cardizem drip was initiated for atrial fibrillation. Attempt to be made with weaning ventilatory support in a.m. : Postop day #5, he was given sedation holiday today, and was able to follow verbal commands, unable to wean today secondary to parameters from Dr. Red, patient went back to assist control mode of ventilation, Lasix was given 401 dose for CHF, pulmonary edema, blood pressure remains stable, negative balance of 1.3 L, urine output is good, has decreased output on the CHAVEZ drain, small amount of mucus stools today, still diminished bowel sounds currently nothing by mouth, general surgery following closely, 09/22: Patient remains intubated and on mechanical ventilation with tidal volume 550, FiO2 40, PEEP 5. Patient failed weaning attempt this morning. Patient is off vasopressors. He has been afebrile, heart rate 108, blood pressure 116/57. Repeat lab work reveals white count of 8.5, hemoglobin 7.8, platelet count 372. Sodium is 150, potassium 3.9, chloride 122, CO2 20, BUN 29 creatinine 0.92. Blood sugars run between 160 08/[birth year]/1976. Phosphorus 3.4. Magnesium 2.4. Repeat chest x-ray this morning reveals persistent bilateral infiltrate and pleural effusion correlate for heart failure. Patient is maintained on Cardizem drip started over the weekend by cover assembler. The patient is also continued on TPN. No plan for tube feedings until extubated. Patient does have a liquid stool in ostomy. Urine output has been adequate. CHAVEZ drain remains in place. Consult for cardiology added for atrial fibrillation. 09/23: Repeat chest x-ray shows diffuse pleuroparenchymal changes are stable correlate for diffuse pneumonia versus heart failure. Chest ultrasound shows small left pleural effusion. Cardiology is following for atrial fibrillation. Patient is maintained on IV Cardizem and heparin. Blood pressure is currently controlled. Heart rate is also controlled. The temperature max 100.7, heart rate 98, blood pressure 126/83, pulse ox 93%. We have ordered pancultures including blood culture, sputum, urine, CHAVEZ drain cultures to be obtained. Patient is continued on sedation, intubation and mechanical ventilation. Tidal volume FiO2 550, FiO2 40, PEEP of 5. Repeat lab work reveals white count of 9.4, hemoglobin 7.6, count 372. Sodium 151, potassium 3.4, chloride 119, CO2 24, creatinine 0.94, BUN 27. Blood sugars running between 170 and 182. General surgery planning for wound VAC to the abdominal incision. Patient is now on IV Lasix [address] Mendoza is concern for evolving ARDS. Anticipate probable trach and PEG tube placement by the end of the week. Objective - Vital Signs Vital signs: Vital Signs Temp 100.7 F H 09/23/18 07:00 Pulse 98 09/23/18 10:30 Resp 26 H 09/23/18 10:30 BP 126/83 09/23/18 10:30 Pulse Ox 93 L 09/23/18 10:30 Intake & Output 09/22/18 09/23/18 09/23/18 18:59 06:59 18:59 Intake Total 3533.251 1833.980 412 Output Total 2710 2480 675 Balance 823.251 -646.020 -263 Weight 156 kg 150.9 kg Intake: IV 2013 1490 312 .9 90 ACETAMINOPHEN IV (For NPO 100 ) 1,000 mg In Empty Bag 1 bag @ 400 mls/hr IVPB Q6HR PRN Rx#:[id number] Albumin Human 25% 50 ml 100 In Empty Bag 1 bag @ 50 mls/hr IVPB Q1H [facility] Rx#: [id number] Dextrose 5% in Water 1, 450 825 80 000 ml @ 75 mls/hr IV . [id number] [facility] Rx#:[id number] Fluconazole in NaCl,Iso- 100 Osm 200 mg In Saline 1 100ml.bag @ 100 mls/hr IVPB DAILY [facility] Rx#: [id number] Mvi, Adult No.4 with Vit 660 605 220 K 10 ml Trace (Conc-1Ml/ Dose) 1 ml Sodium Acetate 30 meq Potassium Chloride 20 meq Calcium Gluconate 1 gm Potassium Phosphate 15 mmol In Amino Acid 5%-D15w 1,000 ml @ 55 mls/hr IV .Q19H7M [facility] Rx#:[id number] Piperacillin-Tazobactam 3 150 .375 gm In Sodium Chloride 0.9% 100 ml @ 25 mls/hr IVPB Q8HR [facility] Rx# :[id number] Potassium Chloride 10 meq 200 In Water For Injection 1 100ml.bag @ 100 mls/hr IVPB Q1H [facility] Rx#: [id number] Pressure Bag 63 60 12 metroNIDAZOLE-NS PMX 500 100 mg In Saline 1 100ml.bag @ 100 mls/hr IVPB Q8HR [facility] Rx#:[id number] Intake, IV Titration 1520.251 343.980 100 Amount Heparin Sod,Pork in 0.45% 250 NaCl 25,000 unit In 0.45 % NaCl 1 250ml.bag @ 6.1 UNITS/KG/HR 9.998 mls/hr IV .Q24H [facility] Rx#: [id number] Mvi, Adult No.4 with Vit 1031.25 K 10 ml Trace (Conc-1Ml/ Dose) 1 ml Sodium Acetate 30 meq Potassium Chloride 20 meq Calcium Gluconate 1 gm Potassium Phosphate 15 mmol In Amino Acid 5%-D15w 1,000 ml @ 55 mls/hr IV .Q19H7M [facility] Rx#:[id number] Propofol 1,000 mg In 239.001 343.980 100 Empty Bag 1 bag @ Titrate IV .Q0M [facility] Rx#: [id number] Output: Gastric Drainage 200 Drainage 60 100 Abdomen 60 100 Urine 2650 2180 675 Other: Voiding Method Indwelling Catheter Indwelling Catheter ABP, PAP, CO, CI - Last Documented Arterial Blood Pressure 112/52 - Exam Review of Systems ROS unobtainable: due to endotracheal tube Gen: This is a 72-year-old morbidly obese male. He is in the intensive care un it. Patient is intubated and on mechanical ventilation. Patient appears to be comfortable. HEENT: Head is atraumatic, normocephalic. Pupils equal, round. Sclerae is anicteric. NG tube in place. Oral tracheal tube in place. Mucous membranes of the mouth are moist. NECK: Supple. No JVD. No lymphadenopathy. No thyromegaly. LUNGS: Diminished bilaterally with scattered rhonchi and expiratory wheeze. HEART: Irregular rate and rhythm. Systolic murmur. court recording monitor atrial fibrillation with rate control. ABDOMEN: Soft. Large. Normal bowel sounds are present. Colostomy in the left upper quadrant with stool output. There is a large mid abdominal incision with dressing that is dry and intact. No breakthrough bleeding or drainage. CHAVEZ drain. Foster catheter draining clear urine. EXTREMITIES: Decreased anasarca and pedal edema. Midline to right upper arm. NEUROLOGICAL: Patient is sedated. - Labs CBC & Chem 7: 09/23/18 06:45 09/23/18 06:45 Labs: Abnormal Lab Results - Last 24 Hours (Table) 09/22/18 09/22/18 09/22/18 Range/Units 12:29 17:53 23:08 RBC (4.30-5.90) m/uL Hgb (13.0-17.5) gm/dL Hct (39.0-53.0) % MCV (80.0-100.0) fL MCH (25.0-35.0) pg MCHC (31.0-37.0) g/dL RDW (11.5-15.5) % APTT (22.0-30.0) sec ABG pO2 (83-108) mmHg ABG Total CO2 (19-24) mmol/L ABG O2 Saturation (94-97) % Sodium (137-145) mmol/L Potassium (3.5-5.1) mmol/L Chloride (98-107) mmol/L BUN (9-20) mg/dL Glucose (74-99) mg/dL POC Glucose (mg/dL) 202 H 182 H 175 H (75-99) mg/dL Calcium (8.4-10.2) mg/dL 09/23/18 09/23/18 09/23/18 Range/Units 06:05 06:45 06:45 RBC 4.13 L (4.30-5.90) m/uL Hgb 7.6 L (13.0-17.5) gm/dL Hct 28.8 L (39.0-53.0) % MCV 69.8 L (80.0-100.0) fL MCH 18.4 L (25.0-35.0) pg MCHC 26.4 L (31.0-37.0) g/dL RDW 20.1 H (11.5-15.5) % APTT (22.0-30.0) sec ABG pO2 (83-108) mmHg ABG Total CO2 (19-24) mmol/L ABG O2 Saturation (94-97) % Sodium 151 H (137-145) mmol/L Potassium 3.4 L (3.5-5.1) mmol/L Chloride 119 H (98-107) mmol/L BUN 27 H (9-20) mg/dL Glucose 170 H (74-99) mg/dL POC Glucose (mg/dL) 175 H (75-99) mg/dL Calcium 7.1 L (8.4-10.2) mg/dL 09/23/18 09/23/18 Range/Units 06:45 07:24 RBC (4.30-5.90) m/uL Hgb (13.0-17.5) gm/dL Hct (39.0-53.0) % MCV (80.0-100.0) fL MCH (25.0-35.0) pg MCHC (31.0-37.0) g/dL RDW (11.5-15.5) % APTT 34.0 H (22.0-30.0) sec ABG pO2 71 L (83-108) mmHg ABG Total CO2 26 H (19-24) mmol/L ABG O2 Saturation 97.3 H (94-97) % Sodium (137-145) mmol/L Potassium (3.5-5.1) mmol/L Chloride (98-107) mmol/L BUN (9-20) mg/dL Glucose (74-99) mg/dL POC Glucose (mg/dL) (75-99) mg/dL Calcium (8.4-10.2) mg/dL Microbiology - Last 24 Hours (Table) 09/16/18 14:25 Blood Culture - Final Blood No Growth after 144 hours Assessment and Plan Plan: 1. Abdominal pain secondary to perforated gastric ulcer, ischemic colon at the splenic flexure with bowel obstruction status post exploratory laparotomy, lysis of adhesions, repair of gastric ulcer, transverse colectomy and takedown of the splenic flexure. Continue fluconazole, Flagyl IV, Zosyn IV. Dr. Benedict consult appreciated. The patient has been seen by ostomy nurse. Anticipate probable trach and PEG tube by the end of the week. 2. Hypovolemic shock status post IV fluid resuscitation and vasopressors. Patient is currently weaned off vasopressors. 3. Acute on chronic hypoxic respiratory failure secondary to above. Patient is currently intubated and on mechanical ventilation. Patient is managed by Dr. Mendoza. Dr. Mendoza concern for ARDS. 4. Acute kidney injury secondary to shock. Continue IV fluids and monitor closely 5. Lactic acidosis. 6. Paroxysmal atrial fibrillation with A. fib RVR, currently rate controlled. Eliquis is on hold. Patient is status post Kcentra for reversal of eliquis. Patient is status post IV amiodarone and now on Cardizem drip and heparin drip. Cardiology consult appreciated 7. Acute and chronic diastolic heart failure and generalized anasarca. IV Lasix 40 mg every 12 hours. Patient is status post albumin infusion yesterday followed by IV Lasix. 8. Severe COPD, stable. 9. Obstructive sleep apnea with CPAP, noncompliance. 10. Mild intermittent asthma, stable. 11. Hyperlipidemia. 12. Gastroesophageal reflux disease and GI prophylaxis. Continue Protonix 40 mg IV daily. 13. Diabetes mellitus type 2. Continue NovoLog scale every 6 hours. Hold metformin and Januvia. 14. Severe protein calorie malnutrition due to nothing by mouth status. Patient on TPN. Patient was given albumin infusion yesterday. 15. Left atrial appendage thrombus found on MIKE during last admission. 16. Hypernatremia and hyperchloremia. Continue IV fluids of D5 at 75 mL per hour. Discharge plan: To be determined. Most likely subacute rehab or [facility]. Impression and plan of care have been directed as dictated by the signing physician. Loreta Medellin nurse practitioner acting as scribe for signing phys ician.
[2018-09-23] MEDS: NOREPINEPHRINE 8 MG in SODIUM CHLORIDE 0.9% 250 ML IV SCH (17:46)
[2018-09-23 17:58] LABS: Glucose,Whole Blood 141 mg/dL (75-99)
--- NOTE | 2018-09-23 17:58 | PN ---
PROGRESS NOTE DATE OF SERVICE: 09/23/2018 REASON FOR FOLLOWUP: Secondary peritonitis from perforated peptic ulcer disease and ischemic splenic flexure. INTERVAL HISTORY: The patient is currently afebrile. The patient is hemodynamically stable, not requiring any pressor support. The patient's FiO2 is currently stable. He remains intubated on the vent. No other events reported by the nursing staff. PHYSICAL EXAMINATION: Blood pressure 127/74 with a pulse of 86, temperature 98. He is 97% on 40% FiO2. General description is an elderly male lying in bed in no distress. RESPIRATORY SYSTEM: Unlabored breathing with decreased breath sounds at the base. HEART: S1, S2. Regular rate and rhythm. ABDOMEN: Soft. No tenderness. Abdominal wound currently with no slough tissue or surrounding swelling or redness or any drainage. LABS: Hemoglobin 7.6, white count 9.4 with a BUN of 27, creatinine 0.94. DIAGNOSTIC IMPRESSION AND PLAN: Patient with perforated peptic ulcer disease along with ischemic splenic flexure, status post laparotomy and surgery along with diverting colostomy. The patient at this time is covered with Zosyn and Diflucan; to continue. Local wound care to the abdominal incision with a wound V.A.C. Monitor his clinical course closely. Continue with supportive care. Family at the bedside. Questions were answered. MMODL / IJN: [id number] / LINDA
[2018-09-23 18:27] LABS: Amorphous Sediment,Urine Rare /hpf; Appearance,Urine Cloudy (Clear); Bilirubin,Urine Negative (Negative); Blood,Urine Negative (Negative); Color,Urine Yellow; Glucose,Urine (UA) Negative (Negative); Granular Casts,Urine 4 /lpf (0); Hyaline Casts,Urine 1 /lpf (0-2); Ketones,Urine Negative (Negative); Leukocyte Esterase,Urine Negative (Negative); Mucus,Urine Rare /hpf; Nitrite,Urine Negative (Negative); PH, Urine 5.5 (5.0-8.0); Protein,Urine Trace (Negative); RBC,Urine 3 /hpf (0-5); Specific Gravity,Urine 1.019 (1.001-1.035); Squamous Epithelial Cell,Urine <1 /hpf (0-4); Urobilinogen,Urine <2.0 mg/dL (<2.0)
[2018-09-23] MEDS: FUROSEMIDE 10 MG/ML 4 ML VIAL IV SCH (20:23)
[2018-09-24] MEDS: IPRATROPIUM-ALBUTEROL 3 ML NEB INHALATION SCH ×7 (00:04→23:41)
[2018-09-24] MEDS: PROPOFOL 1,000 MG in EMPTY BAG 1 BAG IV SCH ×11 (00:11→23:17)
[2018-09-24 00:13] LABS: Glucose,Whole Blood 187 mg/dL (75-99)
[2018-09-24] MEDS: MVI, ADULT NO.4 WITH VIT K 10 ML, TRACE (CONC-1ML/DOSE) 1 ML, SODIUM ACETATE 30 MEQ, PO... IV SCH ×14 (01:21→03:56)
[2018-09-24] MEDS: INSULIN ASPART (NovoLOG) 100 UNIT/ML VIAL SQ SCH ×5 (01:29→23:58)
[2018-09-24] MEDS: HYDROCORTISONE SUCCINATE 100 MG/2 ML VIAL IV SCH ×4 (01:29→23:57)
[2018-09-24] MEDS: PIPERACILLIN-TAZOBACTAM 3.375 GM in SODIUM CHLORIDE 0.9% 100 ML IVPB SCH ×4 (01:38→23:57)
[2018-09-24 01:40] LABS: Glucose,Whole Blood 181 mg/dL (75-99)
[2018-09-24] MEDS: DILTIAZEM 125 MG in SODIUM CHLORIDE 0.9% 100 ML IV SCH (04:10)
[2018-09-24] MEDS: HEPARIN SOD,PORK IN 0.45% NACL 25,000 UNIT in 0.45% NACL 1 250ML.BAG IV SCH ×2 (04:12→15:54)
[2018-09-24 04:54] LABS: Anisocytosis Slight; HCT 31.5 % (39.0-53.0); HGB 8.1 gm/dL (13.0-17.5); Hypochromasia Marked; MCH 19.2 pg (25.0-35.0); MCHC 25.7 g/dL (31.0-37.0); MCV 74.6 fL (80.0-100.0); Mean Platelet Volume 7.6; Microcytosis Moderate; Platelet Count 318 k/uL (150-450); Poikilocytosis Moderate; RBC 4.22 m/uL (4.30-5.90); RDW 19.6 % (11.5-15.5); WBC 7.4 k/uL (3.8-10.6)
[2018-09-24 05:09] LABS: African American GFR (CKD) >90 (>60 ml/min/1.73 sqM); Anion Gap 7 mmol/L; Blood Urea Nitrogen 28 mg/dL (9-20); Calcium 7.2 mg/dL (8.4-10.2); Carbon Dioxide 24 mmol/L (22-30); Chloride 118 mmol/L (98-107); Glucose 177 mg/dL (74-99); Phosphorus 3.6 mg/dL (2.5-4.5); Potassium 3.2 mmol/L (3.5-5.1); Sodium 149 mmol/L (137-145)
[2018-09-24] MEDS: DEXTROSE 5% IN WATER 1,000 ML IV SCH (05:33)
[2018-09-24] MEDS: POTASSIUM CHLORIDE 20 MEQ in WATER FOR INJECTION 1 100ML.BAG IVPB SCH ×6 (05:47→22:22)
[2018-09-24 06:23] LABS: Glucose,Whole Blood 174 mg/dL (75-99)
[2018-09-24 07:04] LABS: ABG Base Excess 1.4 mmol/L; ABG HCO3 26 mmol/L (21-25); ABG Oxygen Saturation 87.2 % (94-97); ABG PCO2 39 mmHg (35-45); ABG PH 7.43 (7.35-7.45); ABG TCO2 27 mmol/L (19-24); Allen Test Performed? Yes
[2018-09-24 07:09] LABS: ABG PO2 38 mmHg (83-108)
--- NOTE | 2018-09-24 08:09 | XR ---
EXAMINATION TYPE: XR chest 1V portable DATE OF EXAM: 09/24/2018 COMPARISON: Prior chest x-ray 09/23/2018 HISTORY: Intubated TECHNIQUE: Single frontal view of the chest is obtained. FINDINGS: Endotracheal tube and orogastric tube, right jugular central venous catheter are overlying appropriate positions. The heart is enlarged. Interstitium is increased. No evident pneumothorax. Th ere is bibasilar increased density, the hemidiaphragms are obscured. Central vascularity appears prom inently. The aorta is dense. IMPRESSION: Correlate for congestive heart failure, possible bibasilar effusions versus edema or ate lectasis, pneumonia not excluded.
[2018-09-24] MEDS: CHLORHEXIDINE GLUCONATE 15 ML CUP MUCOUS MEM SCH ×2 (09:01→21:30)
[2018-09-24] MEDS: FLUCONAZOLE IN NACL,ISO-OSM 200 MG in SALINE 1 100ML.BAG IVPB SCH (09:02)
[2018-09-24] MEDS: FUROSEMIDE 10 MG/ML 4 ML VIAL IV SCH ×2 (09:03→21:29)
[2018-09-24] MEDS: PANTOPRAZOLE 40 MG/10 ML VIAL IVP SCH (09:08)
--- NOTE | 2018-09-24 09:17 | PN ---
PROGRESS NOTE Deondre is a 72-year-old gentleman with history of atrial fibrillation, who is admitted to hospital with bowel perforation and he is still intubated on vent on intravenous Cardizem with rate controlled. He is also on IV heparin. PHYSICAL EXAMINATION: Patient is intubated on vent, sedated. Heart rate is 87 beats per minute. Blood pressure is 120/70, respiratory rate is 18. Chest exam reveals diminished air entry at the bases. Heart exam reveals first and second heart sounds, irregular rhythm and a murmur at the left lower sternal border. Abdomen is soft. Exam of extremities reveals 1+ edema. Peripheral pulses are felt. LABS: Show a hemoglobin of 8.1, potassium is 3.2, creatinine is 0.8. ASSESSMENT: 1. Chronic atrial fibrillation with poorly controlled ventricular rate. 2. Left atrial appendage thrombus. 3. Status post bowel perforation. PLAN: Patient is on IV Cardizem and heparin, which I am going to continue. MMODL / IJN: [id number] /
--- NOTE | 2018-09-24 11:14 | P.PN ---
Subjective Progress Note Date: 09/24/18 CHIEF COMPLAINT: abdominal pain HISTORY OF PRESENT ILLNESS: Patient s/p exploratory laparotomy, lysis of adhesions, decompression of colon and small bowel, transverse colectomy with takedown of splenic flexure, and repair of gastric ulcer with Dr. De Leon secondary to pneumoperitoneum, perforated gastric ulcer, ischemic colon at splenic flexure, and bowel obstruction. POD #8. The patient remains intubated on mechanical ventilation in the intensive care unit. Weaning attempts have been unsuccessful. Fio2 increased today to 60%. WBC 7.4. Hemoglobin 8.1. PHYSICAL EXAM: VITAL SIGNS: Reviewed GENERAL: Well-developed in no acute distress. Patient sedated on mechanical ventilation HEENT: ET tube noted. NG to LIS. No sclera icterus. Extraocular movements grossly intact. Moist buccal mucosa. Head is atraumatic, normocephalic. No nasal drainage. NECK: Supple without lymphadenopathy. CHEST: Non-labored respirations and equal bilateral excursions-remains on ventilator. CARDIOVASCULAR: Irregular rhythm. Palpable 2+ radial pulses. ABDOMEN: Abdomen nondistended, but obese. Wound vac to abdomen. CHAVEZ drain with serous drainage-connected to suction. Left-sided colostomy with stool present. Ostomy pink/red. MUSCULOSKELETAL: No clubbing or cyanosis. Generalized edema NEUROLOGIC: Patient sedated on mechanical ventilation PSYCH: Patient sedated on mechanical ventilation SKIN: Well perfused. Good skin turgor. ASSESSMENT: 1. Abdominal pain 2. Pneumoperitoneum 3. S/P exploratory laparotomy, lysis of adhesions, decompression of colon and small bowel, transverse colectomy with takedown of splenic flexure, and repair of gastric ulcer secondary to pneumoperitoneum, perforated gastric ulcer, ische ness colon at splenic flexure, and bowel obstruction 4. Septic shock, present on admission secondary to above 5. History of atrial fibrillation, on long-term anticoagulation with Eliquis 6. History of bowel obstruction 7. History of laparoscopic Bruce fundoplication 8. History of hiatal hernia repair with mesh PLAN: 1. Continue ventilator management per Dr. Mendoza. May require trach if unable to be extubated. Earliest trach could be performed is Saturday or Saturday by Dr. De Leon. 2. Continue TPN. No tube feedings until patient able to be extubated. Will require barium swallow to ensure no leak before initiating oral intake. 3. Continue wound vac 4. Ostomy resource RN on consult 5. Continue antibiotics. Dr. Benedict on consult. 6. Anticoagulation per cardiology. Currently on heparin drip. Nurse practitioner note has been reviewed by physician. Signing provider agrees with the documented findings, assessment, and plan of care. Objective - Vital Signs Vital signs: Vital Signs Temp 97.9 F 09/24/18 08:00 Pulse 93 09/24/18 10:00 Resp 26 H 09/24/18 10:00 BP 118/71 09/24/18 10:00 Pulse Ox 99 09/24/18 10:00 Intake & Output 09/23/18 09/24/18 09/24/18 18:59 06:59 18:59 Intake Total 2957 2002.630 699 Output Total 2560 3455 1535 Balance 397 -1452.370 -836 Weight 149.1 kg Intake: IV 1606 1638 699 Dextrose 5% in Water 1, 680 975 225 000 ml @ 75 mls/hr IV . [id number] [facility] Rx#:[id number] Fluconazole in NaCl,Iso- 100 100 Osm 200 mg In Saline 1 100ml.bag @ 100 mls/hr IVPB DAILY [facility] Rx#: [id number] Mvi, Adult No.4 with Vit 660 660 165 K 10 ml Trace (Conc-1Ml/ Dose) 1 ml Sodium Acetate 30 meq Potassium Chloride 20 meq Calcium Gluconate 1 gm Potassium Phosphate 15 mmol In Amino Acid 5%-D15w 1,000 ml @ 55 mls/hr IV .Q19H7M [facility] Rx#:[id number] Piperacillin-Tazobactam 3 100 100 .375 gm In Sodium Chloride 0.9% 100 ml @ 25 mls/hr IVPB Q8HR [facility] Rx# :[id number] Potassium Chloride 20 meq 100 In Water For Injection 1 100ml.bag @ 50 mls/hr IVPB Q2H [facility] Rx#: [id number] Pressure Bag 66 3 9 Intake, IV Titration 1351 364.630 Amount Diltiazem 125 mg In 125 Sodium Chloride 0.9% 100 ml @ 5 MG/HR 5 mls/hr IV .Q24H [facility] Rx#:[id number] Mvi, Adult No.4 with Vit 1051 K 10 ml Trace (Conc-1Ml/ Dose) 1 ml Sodium Acetate 30 meq Potassium Chloride 20 meq Calcium Gluconate 1 gm Potassium Phosphate 15 mmol In Amino Acid 5%-D15w 1,000 ml @ 55 mls/hr IV .Q19H7M [facility] Rx#:[id number] Propofol 1,000 mg In 300 239.630 Empty Bag 1 bag @ Titrate IV .Q0M [facility] Rx#: [id number] Output: Gastric Drainage 100 200 Drainage 50 680 Abdomen 50 680 Urine 2410 2425 1335 Stool 350 Other: Voiding Method Indwelling Catheter Indwelling Catheter Indwelling Catheter ABP, PAP, CO, CI - Last Documented Arterial Blood Pressure 112/52 - Labs CBC & Chem 7: 09/24/18 04:25 09/24/18 04:25 Labs: Abnormal Lab Results - Last 24 Hours (Table) 09/23/18 09/23/18 09/23/18 Range/Units 11:49 17:56 18:00 RBC (4.30-5.90) m/uL Hgb (13.0-17.5) gm/dL Hct (39.0-53.0) % MCV (80.0-100.0) fL MCH (25.0-35.0) pg MCHC (31.0-37.0) g/dL RDW (11.5-15.5) % APTT (22.0-30.0) sec ABG pO2 (83-108) mmHg ABG HCO3 (21-25) mmol/L ABG Total CO2 (19-24) mmol/L ABG O2 Saturation (94-97) % Sodium (137-145) mmol/L Potassium (3.5-5.1) mmol/L Chloride (98-107) mmol/L BUN (9-20) mg/dL Glucose (74-99) mg/dL POC Glucose (mg/dL) 202 H 141 H (75-99) mg/dL Calcium (8.4-10.2) mg/dL Urine Protein Trace H (Negative) Amorphous Sediment Rare H (None) /hpf Urine Mucus Rare H (None) /hpf 09/24/18 09/24/18 09/24/18 Range/Units 00:11 01:25 04:25 RBC (4.30-5.90) m/uL Hgb (13.0-17.5) gm/dL Hct (39.0-53.0) % MCV (80.0-100.0) fL MCH (25.0-35.0) pg MCHC (31.0-37.0) g/dL RDW (11.5-15.5) % APTT (22.0-30.0) sec ABG pO2 (83-108) mmHg ABG HCO3 (21-25) mmol/L ABG Total CO2 (19-24) mmol/L ABG O2 Saturation (94-97) % Sodium 149 H (137-145) mmol/L Potassium 3.2 L (3.5-5.1) mmol/L Chloride 118 H (98-107) mmol/L BUN 28 H (9-20) mg/dL Glucose 177 H (74-99) mg/dL POC Glucose (mg/dL) 187 H 181 H (75-99) mg/dL Calcium 7.2 L (8.4-10.2) mg/dL Urine Protein (Negative) Amorphous Sediment (None) /hpf Urine Mucus (None) /hpf 09/24/18 09/24/18 09/24/18 Range/Units 04:25 04:42 06:18 RBC 4.22 L (4.30-5.90) m/uL Hgb 8.1 L (13.0-17.5) gm/dL Hct 31.5 L (39.0-53.0) % MCV 74.6 L (80.0-100.0) fL MCH 19.2 L (25.0-35.0) pg MCHC 25.7 L (31.0-37.0) g/dL RDW 19.6 H (11.5-15.5) % APTT 55.9 H (22.0-30.0) sec ABG pO2 (83-108) mmHg ABG HCO3 (21-25) mmol/L ABG Total CO2 (19-24) mmol/L ABG O2 Saturation (94-97) % Sodium (137-145) mmol/L Potassium (3.5-5.1) mmol/L Chloride (98-107) mmol/L BUN (9-20) mg/dL Glucose (74-99) mg/dL POC Glucose (mg/dL) 174 H (75-99) mg/dL Calcium (8.4-10.2) mg/dL Urine Protein (Negative) Amorphous Sediment (None) /hpf Urine Mucus (None) /hpf 09/24/18 Range/Units 06:55 RBC (4.30-5.90) m/uL Hgb (13.0-17.5) gm/dL Hct (39.0-53.0) % MCV (80.0-100.0) fL MCH (25.0-35.0) pg MCHC (31.0-37.0) g/dL RDW (11.5-15.5) % APTT (22.0-30.0) sec ABG pO2 38 L* (83-108) mmHg ABG HCO3 26 H (21-25) mmol/L ABG Total CO2 27 H (19-24) mmol/L ABG O2 Saturation 87.2 L (94-97) % Sodium (137-145) mmol/L Potassium (3.5-5.1) mmol/L Chloride (98-107) mmol/L BUN (9-20) mg/dL Glucose (74-99) mg/dL POC Glucose (mg/dL) (75-99) mg/dL Calcium (8.4-10.2) mg/dL Urine Protein (Negative) Amorphous Sediment (None) /hpf Urine Mucus (None) /hpf Microbiology - Last 24 Hours (Table) 09/23/18 19:05 Gram Stain - Preliminary Edwin-Harris Body Fluid Culture - Preliminary 09/23/18 19:25 Gram Stain - Preliminary Sputum Sputum Culture - Preliminary Assessment and Plan (1) Acute abdomen Current Visit: Yes Status: Acute Code(s): R10.0 - ACUTE ABDOMEN SNOMED Code(s): 9853010 (2) A-fib Current Visit: No Status: Acute Priority: High Code(s): I48.91 - UNSPECIFIED ATRIAL FIBRILLATION SNOMED Code(s): 79062596 (3) Abdominal pain Current Visit: No Status: Acute Code(s): R10.9 - UNSPECIFIED ABDOMINAL PAIN SNOMED Code(s): 65501350 (4) S/P exploratory laparotomy Current Visit: No Status: Acute Code(s): Z98.89 - OTHER SPECIFIED POSTPROCEDURAL STATES * DO NOT USE * SNOMED Code(s): 839607788
[2018-09-24 11:55] LABS: Glucose,Whole Blood 175 mg/dL (75-99)
[2018-09-24 11:57] LABS: ABG Base Excess 1.7 mmol/L; ABG HCO3 26 mmol/L (21-25); ABG Oxygen Saturation 98.4 % (94-97); ABG PCO2 39 mmHg (35-45); ABG PH 7.43 (7.35-7.45); ABG PO2 79 mmHg (83-108); Allen Test Performed? Yes
[2018-09-24] MEDS: NOREPINEPHRINE 8 MG in SODIUM CHLORIDE 0.9% 250 ML IV SCH (12:13)
[2018-09-24] MEDS: SODIUM CHLORIDE 0.9% 1,000 ML IV SCH (12:13)
--- NOTE | 2018-09-24 12:47 | P.PN ---
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 The patient presented yesterday to the emergency department with extreme abdominal pain. The patient was apparently a constipated for a week and he was doing enemas at home. He ultimately felt a pop in the lower portion of his abdomen on the day of the presentation and he came in with severe abdominal pain. He was having emesis. CAT scan of the abdomen was done in the emergency department the patient was found to have no apparent 20. The patient had abdominal distention and his abdominal size was twice the normal. His blood pressure was in the low 90s. He was tachycardic with a heart rate in the 1:30. He was given IV fluids. He was given IV Zosyn. Blood cultures were sent. He was seen by general surgery and the patient was taken to the operating room, and the patient was found to have perforated gastric ulcer, ischemic colon at the site of the splenic flexure of bowel obstruction. The patient underwent expiratory laparotomy, lysis of adhesions, decompression of the colon and small bowel, transverse colectomy and takedown of the splenic flexure and repair of the gastric ulcer. Estimated blood loss is only 100 mL. The patient overnight was brought into the intensive care unit. The patient was resuscitated aggressively with IV fluids. He was given colloids and crystalloids. He is given 8 L of IV fluids. He was started on pressors and currently norepinephrine infusion is running at 62 g per minute. The patient was also started on physiologic dose vasopressin at 0.03 units per minute. Currently is on propofol at 14 mics for sedation. He is receiving normal saline at the rate of 150 mL an hour. Urine output is in order of 20-30 mL an hour. He is warm. His temperature was 100.5. He is on a mechanical ventilator. He is on assist-control mode of ventilation with a tidal volume of 550 at the rate of 26 with an FiO2 of 80% and a PEEP of 5. Blood gases from this morning shows a pH of 7.315 with a pCO2 of 40 and pO2 of 134. His echocardiogram from previous admissions showed an ejection fraction of 55-60%. He had a preserved LV function. No significant valvular abnormalities. Pulmonary to pressure estimated to be 44. His cardiac rhythm is currently sinus. The patient has a CHAVEZ drain in his abdomen and this is on the r ight side and output is around 80-90 mL of serous material. He also has a colostomy and the site is nonfunctioning it seems to be viable at this point. Note that the patient was in the hospital and he was discharged home on 09/12/2018 after being treated for a flutter/failure with rapid ventricular response and shortness of breath and acute diastolic heart failure. Upon discharge, the patient was started on amiodarone thousand milligrams twice a day, Eliquis, Aldactone, and he was given Augmentin on outpatient basis and a prednisone burst taper. He was discharged home on a 40 mg of prednisone. On today's evaluation of 09/18/2018, the patient is postop day #2. The patient is still sedated with propofol at 35 g per KG per minute. The patient is was sedated and calm and comfortable on a mechanical ventilator essentially on the same vent setting with a tidal volume of 550 and FiO2 of 50% with a PEEP of 5 and a respiratory rate of 26. The morning blood gases showed a pH of 7.36 with a pCO2 of 33 and pO2 of 109 and this was done and FiO2 of 50%. Chest x-ray showing cardiomegaly and some mild pulmonary vascular congestion. ET tube is in a good location. The patient has no significant rest or secretions. Hemodynamically, the patient has been aggressively resuscitated IV fluids. The patient is currently on normal saline the rate of 150 mL an hour. The patient is producing more than 50 mL an hour of urine output. The patient is still requiring pressors. The patient is on physiologic dose vasopressin. The patient is also on norepinephrine infusion which is currently running at 21 g per minute. The patient is afebrile. The patient is nothing by mouth. The patient has bowel sounds and the patient has also has a colostomy in place. NG tube is in place output has been around 200 mL over the past 8 hours. Earlier this morning, the patient was seen to be in tachycardia. A 12-lead EKG was done and the rhythm is essentially undetermined. This is most likely supraventricular rhythm, A. fib versus flutter. SCDs felt to be less likely. A. fib is favored nontender the patient has had previous history of atrial fibrillation. This has not affected the patient's overall hemodynamics and blood pressure control. The white cell count is at 9.6. Hemoglobin was 8.5. The patient continues to be in acute kidney failure. Creatinine is up to 1.80 is stable compared to yesterday. On today's evaluation of 09/19/2018 the patient is postop day #3. On today's evaluation that has been further progress and the patient's blood pressure. Currently is only on 5 mics of norepinephrine infusion the patient is also on vasopressin physiologic dose. There has been considerable improvement in the pressor requirements over the past 24-48 hours. He is still producing more than 100 mL of urine output. Afebrile. Still intubated on a mechanical ventilator. Vent settings are essentially unchanged compared to yesterday with a tidal volume of 550 FiO2 of 50% with a PEEP of 5 and the respiratory rate of 26. Blood gases from today showed a pH of 7.36 with a pCO2 of 35 and pO2 of 121 and this was done and FiO2 of 50%. The patient is was arrested on propofol which is running at 40 mics. Chest x-ray from today shows bilateral pleural effusion and ET tube is in a good location. The patient has positive bowel sounds. The patient is producing some stool activity in his colostomy bag. The CHAVEZ drain output is minimal. NG tube output is minimal. The patient is still on broad- spectrum antibiotic coverage. Cultures from the abdominal wound have been all negative. White cell count is not elevated. Hemoglobin stable at 7.8. Family is at the bedside. As far as atrial fibrillation, the patient was bolused with amiodarone and following that the patient was maintained at a lower heart rate yet still in atrial fibrillation. No anticoagulants for now. The function is improving and the creatinine is down to 1.2. On 09/20/2018 patient is postop day #4. The patient is sedated this morning. The patient is off pressors and norepinephrine infusion and vasopressin has been discontinued. Urine output is excellent. We have noted increased in output from the CHAVEZ drain which has put out approximately 400 mL over the past few hours. Meanwhile the, surgical wound site is dry clean and intact. The patient has a functional colostomy and there is stool output in the colostomy bag. The patient remains on a mechanical ventilator. Vent settings are essentially unchanged. The patient had a blood gases this morning that showed a pH of 7.4 with a pCO2 of 34 and pO2 of 76. The patient had a chest x-ray that showed vascular congestion and edema and bilateral pleural effusions. The patient is on TPN for nutritional support. IV fluids have been cut down to KVO. He is on propofol for sedation. Elisha output is minimal at this point in time. No fever. No chills. Sedation holiday was given yesterday at the patient was not ready for any weaning. The same will be done today. Meanwhile, the patient is still in atrial fibrillation. The patient was taken off the amiodarone drip. The patient was started in IV heparin. Cardizem drip will be started today for rate control. The patient is afebrile. Renal function is normalized and the creatinine is down to 1.02. On 09/21/2018 patient is postop day #5. Sedation holiday was given. The patient woke up appropriately. Unable to give me good weaning parameters. Given a showed spontaneous breathing trial and he feels that the patient became tachypneic tachycardic and the trial was discontinued. He is back on assist control mode of ventilation. Chest x-ray showing pulmonary vessel congestion/edema. The patient is a negative fluid balance of 1.3 L and the patient is producing excellent urine output. His dose of Lasix will be given to augment the urine output and establish a better negative fluid balance over the next 24 hours. Otherwise, he started on TPN for nutritional support. He is on a Cardizem drip for rate control. He is in atrial fibrillation. He is on IV heparin. He is afebrile. He is on broad-spectrum antibiotics. The ostomy is viable and there is stool within the bag. Discussed the case with general surgery and no plans for feeding at this point in time. A barium swallow needs to be done later stage to make sure there is no bowel leak. Reevaluated today on 09/22/2018, patient remains on mechanical ventilation, remains on multiple meds, but not requiring any pressors. He is on vent settings assist-control mode of mechanical ventilation with tidal volume of 550 rate of 26, FiO2 40% PEEP of 5. Patient remains on Cardizem, on TPN, heparin, Zosyn and Diflucan and on propofol drip. Weaning trial failed yesterday, and the same happened today, patient was taken off propofol, and after few hours he became extremely agitated, tachypneic, tachycardic, and had to place him back on propofol. However his mental status was noted to be intact, and he was appropriate off propofol. I have a feeling that the patient may eventually require tracheostomy if he continues to fail daily weaning trials. Labs were reviewed his sodium is elevated chloride is 122, hence his IV fluid will be changed to D5W. His ABG showed a pO2 of 89 pCO2 of 35 pH of 7.43. CBC is relatively unremarkable WBC count is 8.5 hemoglobin is 7.8. His ostomy is viable. Patient remains on TPN. Reevaluated today on 09/23/2018, remains in the ICU, mechanically ventilated, not requiring any pressors, ventilator settings are basically the same as noted yesterday, tidal volume of 550 assist-control rate of 26 FiO2 of 40% PEEP of 5. Remains on antibiotics, heparin, TPN, Cardizem remains on propofol, chest x-ray is showing worsening airspace disease especially in the left lung, ultrasound of the chest did not reveal significant pleural effusion for thoracentesis. Nanda ent would have sedation interruption today, however based on the chest x-ray appearance, I have a feeling the patient will not tolerate any weaning. I am a bit concerned that the patient may be developing or having evolving ARDS picture and that is yet to be determined. In the meantime I will continue patient on diuretics, his urine output is excellent about 150 mL per hour. I kept him on D5W at 75 mL per hour. And I have recommended CVP monitoring. CBC today showed WBC count of 9.4 hemoglobin of 7.6. ABG this morning showed a pO2 of 71 pCO2 of 40 0 pH of 7.40 sodium remains elevated at 151, renal profile is relatively normal otherwise. Family is at bedside, and updated on his condition Reevaluated today on 09/24/2018, patient remains mechanically ventilated, in the ICU, his ventilator settings are tidal volume of 550 FiO2 of 50% rate of 26 and PEEP of 5.Remains on propofol, Cardizem drip, heparin drip, not requiring any pressors. Chest x-ray is showing evidence of pulmonary edema which again could be cardiogenic or noncardiogenic in nature, there is also some atelectasis at the bases. Pneumonia is not entirely excluded. Chest x-ray however is improving compared to yesterday's chest x-ray, ABG showed a pO2 of 79 pCO2 of 39 pH of 7.43. WBC count is 7.4 hemoglobin is 8.1. Renal profile seems to be normal. Potassium is a bit low at 3.2 being addressed. Patient remains on TPN, family updated on his condition today Objective - Vital Signs Vital signs: Vital Signs Temp 99 F 09/24/18 12:00 Pulse 92 09/24/18 12:04 Resp 26 H 09/24/18 12:00 BP 112/65 09/24/18 12:00 Pulse Ox 99 09/24/18 12:09 Intake & Output 09/23/18 09/24/18 09/24/18 18:59 06:59 18:59 Intake Total 2957 2002.630 1165 Output Total 2560 3455 2035 Balance 397 -1452.370 -870 Weight 149.1 kg Intake: IV 1606 1638 1065 Dextrose 5% in Water 1, 680 975 375 000 ml @ 75 mls/hr IV . [id number] [facility] Rx#:[id number] Fluconazole in NaCl,Iso- 100 100 Osm 200 mg In Saline 1 100ml.bag @ 100 mls/hr IVPB DAILY [facility] Rx#: [id number] Mvi, Adult No.4 with Vit 660 660 275 K 10 ml Trace (Conc-1Ml/ Dose) 1 ml Sodium Acetate 30 meq Potassium Chloride 20 meq Calcium Gluconate 1 gm Potassium Phosphate 15 mmol In Amino Acid 5%-D15w 1,000 ml @ 55 mls/hr IV .Q19H7M [facility] Rx#:[id number] Piperacillin-Tazobactam 3 100 100 .375 gm In Sodium Chloride 0.9% 100 ml @ 25 mls/hr IVPB Q8HR [facility] Rx# :[id number] Potassium Chloride 20 meq 100 In Water For Injection 1 100ml.bag @ 50 mls/hr IVPB Q2H [facility] Rx#: [id number] Potassium Chloride 20 meq 100 In Water For Injection 1 100ml.bag @ 50 mls/hr IVPB Q2H [facility] Rx#: [id number] Pressure Bag 66 3 15 Intake, IV Titration 1351 364.630 100 Amount Diltiazem 125 mg In 125 Sodium Chloride 0.9% 100 ml @ 5 MG/HR 5 mls/hr IV .Q24H [facility] Rx#:[id number] Mvi, Adult No.4 with Vit 1051 K 10 ml Trace (Conc-1Ml/ Dose) 1 ml Sodium Acetate 30 meq Potassium Chloride 20 meq Calcium Gluconate 1 gm Potassium Phosphate 15 mmol In Amino Acid 5%-D15w 1,000 ml @ 55 mls/hr IV .Q19H7M [facility] Rx#:[id number] Propofol 1,000 mg In 300 239.630 100 Empty Bag 1 bag @ Titrate IV .Q0M [facility] Rx#: [id number] Output: Gastric Drainage 100 200 Drainage 50 680 Abdomen 50 680 Urine 2410 2425 1835 Stool 350 Other: Voiding Method Indwelling Catheter Indwelling Catheter Indwelling Catheter ABP, PAP, CO, CI - Last Documented Arterial Blood Pressure 112/52 - Exam Physical Exam: Revealed 72-year-old white male on mechanical ventilation, sedated, Head: Atraumatic, normocephalic. HEENT:[Neck is supple.] [No neck masses.] [No thyromegaly.] [No JVD.] End otracheal tube is intact. Moist mucous membranes noted. Chest: [Symmetrical chest expansion, crackles and rhonchi noted bilaterally Cardiac Exam: [Normal S1 and S2, no S3 gallop, no murmur.] Abdomen: [Postsurgical, Soft, nontender, no megaly, no rebound, no guarding, diminished bowel sounds, colostomy seems to be viable with healthy tissue, and some output noted in the colostomy bag. Abdominal incision is dry and clean. Extremities: [No clubbing, trace of bipedal edema. edema, no cyanosis.] Neurological Exam: Cannot be assessed, patient is on propofol, Lymphatics: No lymphadenopathy. Skin: No rashes. Psychiatric: Could not be assessed. - Labs CBC & Chem 7: 09/24/18 04:25 09/24/18 04:25 Labs: Abnormal Lab Results - Last 24 Hours (Table) 09/23/18 09/23/18 09/24/18 Range/Units 17:56 18:00 00:11 RBC (4.30-5.90) m/uL Hgb (13.0-17.5) gm/dL Hct (39.0-53.0) % MCV (80.0-100.0) fL MCH (25.0-35.0) pg MCHC (31.0-37.0) g/dL RDW (11.5-15.5) % APTT (22.0-30.0) sec ABG pO2 (83-108) mmHg ABG HCO3 (21-25) mmol/L ABG Total CO2 (19-24) mmol/L ABG O2 Saturation (94-97) % Sodium (137-145) mmol/L Potassium (3.5-5.1) mmol/L Chloride (98-107) mmol/L BUN (9-20) mg/dL Glucose (74-99) mg/dL POC Glucose (mg/dL) 141 H 187 H (75-99) mg/dL Calcium (8.4-10.2) mg/dL Urine Protein Trace H (Negative) Amorphous Sediment Rare H (None) /hpf Urine Mucus Rare H (None) /hpf 09/24/18 09/24/18 09/24/18 Range/Units 01:25 04:25 04:25 RBC 4.22 L (4.30-5.90) m/uL Hgb 8.1 L (13.0-17.5) gm/dL Hct 31.5 L (39.0-53.0) % MCV 74.6 L (80.0-100.0) fL MCH 19.2 L (25.0-35.0) pg MCHC 25.7 L (31.0-37.0) g/dL RDW 19.6 H (11.5-15.5) % APTT (22.0-30.0) sec ABG pO2 (83-108) mmHg ABG HCO3 (21-25) mmol/L ABG Total CO2 (19-24) mmol/L ABG O2 Saturation (94-97) % Sodium 149 H (137-145) mmol/L Potassium 3.2 L (3.5-5.1) mmol/L Chloride 118 H (98-107) mmol/L BUN 28 H (9-20) mg/dL Glucose 177 H (74-99) mg/dL POC Glucose (mg/dL) 181 H (75-99) mg/dL Calcium 7.2 L (8.4-10.2) mg/dL Urine Protein (Negative) Amorphous Sediment (None) /hpf Urine Mucus (None) /hpf 09/24/18 09/24/18 09/24/18 Range/Units 04:42 06:18 06:55 RBC (4.30-5.90) m/uL Hgb (13.0-17.5) gm/dL Hct (39.0-53.0) % MCV (80.0-100.0) fL MCH (25.0-35.0) pg MCHC (31.0-37.0) g/dL RDW (11.5-15.5) % APTT 55.9 H (22.0-30.0) sec ABG pO2 38 L* (83-108) mmHg ABG HCO3 26 H (21-25) mmol/L ABG Total CO2 27 H (19-24) mmol/L ABG O2 Saturation 87.2 L (94-97) % Sodium (137-145) mmol/L Potassium (3.5-5.1) mmol/L Chloride (98-107) mmol/L BUN (9-20) mg/dL Glucose (74-99) mg/dL POC Glucose (mg/dL) 174 H (75-99) mg/dL Calcium (8.4-10.2) mg/dL Urine Protein (Negative) Amorphous Sediment (None) /hpf Urine Mucus (None) /hpf 09/24/18 09/24/18 Range/Units 11:53 11:53 RBC (4.30-5.90) m/uL Hgb (13.0-17.5) gm/dL Hct (39.0-53.0) % MCV (80.0-100.0) fL MCH (25.0-35.0) pg MCHC (31.0-37.0) g/dL RDW (11.5-15.5) % APTT (22.0-30.0) sec ABG pO2 79 L (83-108) mmHg ABG HCO3 26 H (21-25) mmol/L ABG Total CO2 (19-24) mmol/L ABG O2 Saturation 98.4 H (94-97) % Sodium (137-145) mmol/L Potassium (3.5-5.1) mmol/L Chloride (98-107) mmol/L BUN (9-20) mg/dL Glucose (74-99) mg/dL POC Glucose (mg/dL) 175 H (75-99) mg/dL Calcium (8.4-10.2) mg/dL Urine Protein (Negative) Amorphous Sediment (None) /hpf Urine Mucus (None) /hpf Microbiology - Last 24 Hours (Table) 09/23/18 19:05 Gram Stain - Preliminary Edwin-Harris Body Fluid Culture - Preliminary 09/23/18 19:25 Gram Stain - Preliminary Sputum Sputum Culture - Preliminary Assessment and Plan Assessment: 1 perforated gastric ulcer/ischemic colon at the level of splenic fracture with bowel obstruction. Status post exploratory laparotomy, lysis of adhesions, repa ir of a gastric ulcer, transverse colectomy postoperative day #8 2 septic shock secondary to abdominal sepsis, recovered. 3 acute hypoxic respiratory failure secondary to septic shock and abdominal sepsis. 4 acute kidney injury secondary to above, recovered 5 mild lactic acidosis, resolved 6 history of paroxysmal atrial fibrillation with a recent admission to the hospital because of A. fib/flutter with RVR current rhythm is sinus. Remains on heparin and Cardizem. 7 COPD, presently inactive. 8 bronchial asthma presently inactive 9 suspect acute diastolic heart failure, improving with diuretics, chest x-ray is also improving. 10 obstructive sleep apnea noncompliant with CPAP therapy 11 diabetes mellitus type 2, on insulin protocol. 12 chronic hypoxic respiratory failure with an oxygen at 2 L per minute nasal cannula on outpatient basis Recommendation: Continue ventilatory support Continue antibiotics Continue GI and DVT prophylaxis Continue diuretics Continue D5 W to correct his hypernatremia Continue TPN Continue to monitor daily electrolytes Continue daily interruption of sedation and mental assessment Had a long discussion with the family today regarding his overall condition, and I have a feeling that the patient may actually require tracheostomy and this will be discussed with the surgeon, hopefully this could be accomplished in the next 48 hours. Patient will be extremely difficult to wean and extubate considering his overall condition. Patient remains critically ill, critical care time is 40 minutes. Family updated fully on his condition. Time with Patient: Greater than 30
--- NOTE | 2018-09-24 13:03 | PN ---
PROGRESS NOTE DATE OF SERVICE: 09/24/2018 REASON FOR FOLLOWUP: Perforated peptic ulcer disease and ischemic splenic flexure. INTERVAL HISTORY: The patient is currently afebrile. The patient is hemodynamically stable not requiring pressor support. The patient's FiO2 is currently stable at 40%. No other changes reported by nursing staff. PHYSICAL EXAMINATION: On examination, blood pressure 112/65 with a pulse of 92, temperature 99. He is 99% on 40% FiO2. General description is an elderly male lying in bed in no distress. RESPIRATORY SYSTEM: Unlabored breathing with decreased breath sounds at the bases. No wheeze. HEART: S1, S2. Regular rate and rhythm. ABDOMEN: Soft, no tenderness. Midline wound is currently covered with wound VAC. EXTREMITIES: Some trace edema of the feet. LABS: Hemoglobin 8.1, white count 7.4, BUN of 28, creatinine 0.88. Urine culture currently pending. Blood culture has been negative. DIAGNOSTIC IMPRESSION AND PLAN: Patient with perforated peptic ulcer disease, also with ischemic splenic flexure, status post surgery and diverting colostomy. The patient is currently on Zosyn and Diflucan to continue. Will monitor his clinical course closely. Continue supportive care. MMODL / IJN: [id number] / LINDA
--- NOTE | 2018-09-24 15:10 | P.PN ---
Subjective Progress Note Date: 09/24/18 This is a 72-year-old male patient of Dr. Cevallos with past history of chronic hypoxic respiratory failure on home O2 obstructive sleep apnea on CPAP, paroxysmal atrial fibrillation, chronic diastolic heart failure, severe COPD, morbid obesity with BMI of 47, hypertension hypertensive cardiovascular disease, mild intermittent asthma, hyperlipidemia, gastroesophageal reflux disease, diabetes mellitus type 2, cellulitis of the abdominal wall. Patient was recently hospitalized and discharged home on September 12 and treated for acute diastolic heart failure, atrial flutter/atrial fibrillation with rapid ventricular response status post MIKE which found a small atrial appendage thrombus. The patient was stabilized and discharged home in stable condition and had been started on amiodarone, eliquis, Aldactone, prednisone and Augmentin. Patient presented to [facility] emergency center for evaluation. He was afebrile, heart rate 130s, blood pressure 119/79, pulse ox 95%. White count was 5.9, hemoglobin 10.6, platelet count 4-72. Sodium 133, potassium 5.4, chloride 96, CO2 20, BUN 36 and creatinine 1.6, blood sugar 178. CAT scan of the abdomen and pelvis revealed pneumoperitoneum. Bowel distention. Bowel ischemia not excluded. No clear obstruction. Findings may be due to ileus. Patient was provided IV fluids, pain medication and Zosyn patient was seen by Dr. De Leon in the emergency center and taken to the OR found to have a perforated gastric ulcer, ischemic colon at the site of splenic flexure of the bowel obstruction. Patient underwent exploratory laparotomy, lysis of adhesions, decompression of the colon and small bowel, transverse colectomy and takedown of splenic flexure and repair of a gastric ulcer. Patient was then transferred to the intensive care unit and followed by Dr. Red. He is status post greater than 8 L of IV fluid and on norepinephrine and subsequent started on vasopressin. Urine output has been marginal patient remains intubated and on mechanical ventilation with tidal volume 550, FiO2 of 50% and PEEP of 5. The patient is on sedation. 09/18: Patient remains in intensive care unit intubated and on mechanical vent ilation with tidal volume 550, FiO2 50, PEEP 5. NG tube with black drainage. He is on 22 mics of levo fed and 0.03 vasopressin. Patient was started on amiodarone due to continued A. fib with RVR. Heart rate is in the 140s, blood pressure systolic 99. A.m. lab work white count 9.6, hemoglobin 8.5, platelet count 368. Sodium 136, potassium 4.9, chloride 108, CO2 18, BUN 39 creatinine 1.81. Blood sugars are running between 141 and 161. Urine culture is in progress and blood culture is no growth at [address] Benedict is recommended continuing Zosyn and Diflucan. Son is at bedside and all questions have been answered. 09/19: Patient remains in the intensive care unit intubated and on mechanical ventilation with tidal volume 550, FiO2 40 and PEEP of 5. Norepinephrine is now down to 5 mics and minimal on vasopressin. Urine output has been more than adequate. He has been afebrile. He is continued on sedation with propofol. A sedation holiday was attempted today but patient became tachypneic. Patient is back on sedation with plan for tomorrow for sedation holiday tomorrow. Patient has had output from colostomy and passing gas and colostomy. Decreased output from NG tube and from CHAVEZ drain. WBC 8.6, hemoglobin 7.8. He has been afebrile, heart rate 99, blood pressure 90/63. TPN has been started. Amiodarone drip to be discontinued. school lunch monitor is currently A. fib with controlled rate. 09/20 Patient remains in ICU, currently nothing by mouth, CHAVEZ drain has drained ov er 2 L in 24 hours, patient has been off pressors, urine output is normal, patient is still on TPN, patient still has abdominal discomfort, otherwise no chest pain no shortness of breath, no palpitations. Hemoglobin currently at 7.4 from an admitting hemoglobin of 9.4, iron studies to be done, agent has initial myelocytes on admission, creatinine 1.02 from 1.2, surgical incision is dry, there is stool output in the colostomy bag, patient remains on mechanical ventilator, unchanged and settings. Followed closely by pulmonary medicine, Cardizem drip was initiated for atrial fibrillation. Attempt to be made with weaning ventilatory support in a.m. : Postop day #5, he was given sedation holiday today, and was able to follow verbal commands, unable to wean today secondary to parameters from Dr. Red, patient went back to assist control mode of ventilation, Lasix was given 401 dose for CHF, pulmonary edema, blood pressure remains stable, negative balance of 1.3 L, urine output is good, has decreased output on the CHAVEZ drain, small amount of mucus stools today, still diminished bowel sounds currently nothing by mouth, general surgery following closely, 09/22: Patient remains intubated and on mechanical ventilation with tidal volume 550, FiO2 40, PEEP 5. Patient failed weaning attempt this morning. Patient is off vasopressors. He has been afebrile, heart rate 108, blood pressure 116/57. Repeat lab work reveals white count of 8.5, hemoglobin 7.8, platelet count 372. Sodium is 150, potassium 3.9, chloride 122, CO2 20, BUN 29 creatinine 0.92. Blood sugars run between 160 08/[birth year]/1976. Phosphorus 3.4. Magnesium 2.4. Repeat chest x-ray this morning reveals persistent bilateral infiltrate and pleural effusion correlate for heart failure. Patient is maintained on Cardizem drip started over the weekend by environmental research project manager. The patient is also continued on TPN. No plan for tube feedings until extubated. Patient does have a liquid stool in ostomy. Urine output has been adequate. CHAVEZ drain remains in place. Consult for cardiology added for atrial fibrillation. 09/23: Repeat chest x-ray shows diffuse pleuroparenchymal changes are stable correlate for diffuse pneumonia versus heart failure. Chest ultrasound shows small left pleural effusion. Cardiology is following for atrial fibrillation. Patient is maintained on IV Cardizem and heparin. Blood pressure is currently controlled. Heart rate is also controlled. The temperature max 100.7, heart rate 98, blood pressure 126/83, pulse ox 93%. We have ordered pancultures including blood culture, sputum, urine, CHAVEZ drain cultures to be obtained. Patient is continued on sedation, intubation and mechanical ventilation. Tidal volume FiO2 550, FiO2 40, PEEP of 5. Repeat lab work reveals white count of 9.4, hemoglobin 7.6, count 372. Sodium 151, potassium 3.4, chloride 119, CO2 24, creatinine 0.94, BUN 27. Blood sugars running between 170 and 182. General surgery planning for wound VAC to the abdominal incision. Patient is now on IV Lasix [address] Mendoza is concern for evolving ARDS. Anticipate probable trach and PEG tube placement by the end of the week. 09/24: The patient remains intubated and on mechanical ventilation with tidal volume 550, FiO2 50%, PEEP 5. Patient remains on sedation. No low-grade fevers this morning. school lunch monitor is A. fib with controlled rate in the 80s and 90s. Patient remains on Cardizem drip and heparin drip. Blood pressure is currently stable. Lasix is at 40 mg IV every 12 hours with noted decrease edema. Patient has good urine output, positive stool output. Patient has been started on Solu-Cortef. Objective - Vital Signs Vital signs: Vital Signs Temp 97.9 F 09/24/18 08:00 Pulse 87 09/24/18 08:00 Resp 26 H 09/24/18 08:00 BP 119/70 09/24/18 08:00 Pulse Ox 100 09/24/18 08:00 Intake & Output 09/23/18 09/24/18 09/24/18 18:59 06:59 18:59 Intake Total 2957 2002.630 133 Output Total 2560 3455 430 Balance 397 -1452.370 -297 Weight 149.1 kg Intake: IV 1606 1638 133 Dextrose 5% in Water 1, 680 975 75 000 ml @ 75 mls/hr IV . [id number] [facility] Rx#:[id number] Fluconazole in NaCl,Iso- 100 Osm 200 mg In Saline 1 100ml.bag @ 100 mls/hr IVPB DAILY [facility] Rx#: [id number] Mvi, Adult No.4 with Vit 660 660 55 K 10 ml Trace (Conc-1Ml/ Dose) 1 ml Sodium Acetate 30 meq Potassium Chloride 20 meq Calcium Gluconate 1 gm Potassium Phosphate 15 mmol In Amino Acid 5%-D15w 1,000 ml @ 55 mls/hr IV .Q19H7M [facility] Rx#:[id number] Piperacillin-Tazobactam 3 100 .375 gm In Sodium Chloride 0.9% 100 ml @ 25 mls/hr IVPB Q8HR [facility] Rx# :[id number] Pressure Bag 66 3 3 Intake, IV Titration 1351 364.630 Amount Diltiazem 125 mg In 125 Sodium Chloride 0.9% 100 ml @ 5 MG/HR 5 mls/hr IV .Q24H [facility] Rx#:[id number] Mvi, Adult No.4 with Vit 1051 K 10 ml Trace (Conc-1Ml/ Dose) 1 ml Sodium Acetate 30 meq Potassium Chloride 20 meq Calcium Gluconate 1 gm Potassium Phosphate 15 mmol In Amino Acid 5%-D15w 1,000 ml @ 55 mls/hr IV .Q19H7M [facility] Rx#:[id number] Propofol 1,000 mg In 300 239.630 Empty Bag 1 bag @ Titrate IV .Q0M [facility] Rx#: [id number] Output: Gastric Drainage 100 200 Drainage 50 680 Abdomen 50 680 Urine 2410 2425 230 Stool 350 Other: Voiding Method Indwelling Catheter Indwelling Catheter ABP, PAP, CO, CI - Last Documented Arterial Blood Pressure 112/52 - Exam Review of Systems ROS unobtainable: due to endotracheal tube Gen: This is a 72-year-old morbidly obese male. He is in the intensive care unit. Patient is intubated and on mechanical ventilation. Patient appears to be comfortable. HEENT: Head is atraumatic, normocephalic. Pupils equal, round. Sclerae is anicteric. NG tube in place. Oral tracheal tube in place. Mucous membranes of the mouth are moist. NECK: Supple. No JVD. No lymphadenopathy. No thyromegaly. LUNGS: Diminished bilaterally with scattered rhonchi and expiratory wheeze. Patient appears comfortable. HEART: Irregular rate and rhythm. Systolic murmur. school lunch monitor atrial fibrillation with rate control. ABDOMEN: Soft. Large. Normal bowel sounds are present. Colostomy in the left upper quadrant with stool output. There is a large mid abdominal incision with dressing that is dry and intact. CHAVEZ drain. Foster catheter draining clear urine. EXTREMITIES: Decreased anasarca and pedal edema. Midline to right upper arm. NEUROLOGICAL: Patient is sedated. - Labs CBC & Chem 7: 09/24/18 04:25 09/24/18 13:25 Labs: Abnormal Lab Results - Last 24 Hours (Table) 09/23/18 09/23/18 09/23/18 Range/Units 11:49 17:56 18:00 RBC (4.30-5.90) m/uL Hgb (13.0-17.5) gm/dL Hct (39.0-53.0) % MCV (80.0-100.0) fL MCH (25.0-35.0) pg MCHC (31.0-37.0) g/dL RDW (11.5-15.5) % APTT (22.0-30.0) sec ABG pO2 (83-108) mmHg ABG HCO3 (21-25) mmol/L ABG Total CO2 (19-24) mmol/L ABG O2 Saturation (94-97) % Sodium (137-145) mmol/L Potassium (3.5-5.1) mmol/L Chloride (98-107) mmol/L BUN (9-20) mg/dL Glucose (74-99) mg/dL POC Glucose (mg/dL) 202 H 141 H (75-99) mg/dL Calcium (8.4-10.2) mg/dL Urine Protein Trace H (Negative) Amorphous Sediment Rare H (None) /hpf Urine Mucus Rare H (None) /hpf 09/24/18 09/24/18 09/24/18 Range/Units 00:11 01:25 04:25 RBC (4.30-5.90) m/uL Hgb (13.0-17.5) gm/dL Hct (39.0-53.0) % MCV (80.0-100.0) fL MCH (25.0-35.0) pg MCHC (31.0-37.0) g/dL RDW (11.5-15.5) % APTT (22.0-30.0) sec ABG pO2 (83-108) mmHg ABG HCO3 (21-25) mmol/L ABG Total CO2 (19-24) mmol/L ABG O2 Saturation (94-97) % Sodium 149 H (137-145) mmol/L Potassium 3.2 L (3.5-5.1) mmol/L Chloride 118 H (98-107) mmol/L BUN 28 H (9-20) mg/dL Glucose 177 H (74-99) mg/dL POC Glucose (mg/dL) 187 H 181 H (75-99) mg/dL Calcium 7.2 L (8.4-10.2) mg/dL Urine Protein (Negative) Amorphous Sediment (None) /hpf Urine Mucus (None) /hpf 09/24/18 09/24/18 09/24/18 Range/Units 04:25 04:42 06:18 RBC 4.22 L (4.30-5.90) m/uL Hgb 8.1 L (13.0-17.5) gm/dL Hct 31.5 L (39.0-53.0) % MCV 74.6 L (80.0-100.0) fL MCH 19.2 L (25.0-35.0) pg MCHC 25.7 L (31.0-37.0) g/dL RDW 19.6 H (11.5-15.5) % APTT 55.9 H (22.0-30.0) sec ABG pO2 (83-108) mmHg ABG HCO3 (21-25) mmol/L ABG Total CO2 (19-24) mmol/L ABG O2 Saturation (94-97) % Sodium (137-145) mmol/L Potassium (3.5-5.1) mmol/L Chloride (98-107) mmol/L BUN (9-20) mg/dL Glucose (74-99) mg/dL POC Glucose (mg/dL) 174 H (75-99) mg/dL Calcium (8.4-10.2) mg/dL Urine Protein (Negative) Amorphous Sediment (None) /hpf Urine Mucus (None) /hpf 09/24/18 Range/Units 06:55 RBC (4.30-5.90) m/uL Hgb (13.0-17.5) gm/dL Hct (39.0-53.0) % MCV (80.0-100.0) fL MCH (25.0-35.0) pg MCHC (31.0-37.0) g/dL RDW (11.5-15.5) % APTT (22.0-30.0) sec ABG pO2 38 L* (83-108) mmHg ABG HCO3 26 H (21-25) mmol/L ABG Total CO2 27 H (19-24) mmol/L ABG O2 Saturation 87.2 L (94-97) % Sodium (137-145) mmol/L Potassium (3.5-5.1) mmol/L Chloride (98-107) mmol/L BUN (9-20) mg/dL Glucose (74-99) mg/dL POC Glucose (mg/dL) (75-99) mg/dL Calcium (8.4-10.2) mg/dL Urine Protein (Negative) Amorphous Sediment (None) /hpf Urine Mucus (None) /hpf Microbiology - Last 24 Hours (Table) 09/23/18 19:05 Gram Stain - Preliminary [facility] Body Fluid Culture - Preliminary 09/23/18 19:25 Gram Stain - Preliminary Sputum Sputum Culture - Preliminary Assessment and Plan Plan: 1. Abdominal pain secondary to perforated gastric ulcer, ischemic colon at the splenic flexure with bowel obstruction status post exploratory laparotomy, lysis of adhesions, repair of gastric ulcer, transverse colectomy and takedown of the splenic flexure. Continue fluconazole, Flagyl IV, Zosyn IV. Dr. Benedict consult appreciated. The patient has been seen by ostomy nurse. Anticipate probable trach and PEG tube by the end of the week. 2. Hypovolemic shock status post IV fluid resuscitation and vasopressors. Patient is currently weaned off vasopressors. 3. Acute on chronic hypoxic respiratory failure secondary to above. Patient is currently intubated and on mechanical ventilation. Patient is managed by Dr. Mendoza. Dr. Mendoza concern for ARDS. 4. Acute kidney injury secondary to shock. Continue IV fluids and monitor closely 5. Lactic acidosis. 6. Paroxysmal atrial fibrillation with A. fib RVR, currently rate controlled. Eliquis is on hold. Patient is status post Kcentra for reversal of eliquis. Patient is status post IV amiodarone and now on Cardizem drip and heparin drip. Cardiology consult appreciated 7. Acute and chronic diastolic heart failure and generalized anasarca. IV Lasix 40 mg every 12 hours. Patient is status post albumin infusion. 8. Severe COPD, stable. 9. Obstructive sleep apnea with CPAP, noncompliance. 10. Mild intermittent asthma, stable. 11. Hyperlipidemia. 12. Gastroesophageal reflux disease and GI prophylaxis. Continue Protonix 40 mg IV daily. 13. Diabetes mellitus type 2. Continue NovoLog scale every 6 hours. Hold metformin and Januvia. 14. Severe protein calorie malnutrition due to nothing by mouth status. Patient on TPN. Patient was given albumin infusion yesterday. 15. Left atrial appendage thrombus found on MIKE during last admission. 16. Hypernatremia and hyperchloremia. Continue IV fluids of D5 at 75 mL per hour. 17. Adrenal insufficiency secondary to illness. Patient has been started on hydrocortef 50 mg IV every 8 hours. Discharge plan: To be determined. Most likely subacute rehab or [facility]. Impression and plan of care have been directed as dictated by the signing physician. Loreta Medellin nurse practitioner acting as scribe for signing physician.
[2018-09-24] MEDS ORDERED: Potassium Replacement Protocol 1 EACH MISC MISCELLANE PRN (17:29)
[2018-09-24 17:30] LABS: Glucose,Whole Blood 178 mg/dL (75-99)
[2018-09-24] MEDS: MVI, ADULT NO.4 WITH VIT K 10 ML, TRACE (CONC-1ML/DOSE) 1 ML, CALCIUM GLUCONATE 1 GM, P... IV SCH ×6 (23:03)
[2018-09-24 23:38] LABS: Glucose,Whole Blood 197 mg/dL (75-99)
[2018-09-25] MEDS: DEXTROSE 5% IN WATER 1,000 ML IV SCH ×4 (00:48→21:35)
[2018-09-25] MEDS: PROPOFOL 1,000 MG in EMPTY BAG 1 BAG IV SCH ×9 (01:20→22:11)
[2018-09-25] MEDS: HEPARIN SOD,PORK IN 0.45% NACL 25,000 UNIT in 0.45% NACL 1 250ML.BAG IV SCH ×3 (02:35→22:39)
[2018-09-25] MEDS: DILTIAZEM 125 MG in SODIUM CHLORIDE 0.9% 100 ML IV SCH ×2 (02:38→11:58)
[2018-09-25] MEDS: IPRATROPIUM-ALBUTEROL 3 ML NEB INHALATION SCH ×6 (03:16→23:11)
[2018-09-25 04:27] LABS: Anisocytosis Slight; Basophils % (A) 0 %; Eosinophils % (A) 0 %; HGB 7.5 gm/dL (13.0-17.5); Hypochromasia Marked; Lymphocytes # (A) 0.8 k/uL (1.0-4.8); Lymphocytes % (A) 8 %; MCH 18.8 pg (25.0-35.0); MCV 72.3 fL (80.0-100.0); Mean Platelet Volume 7.4; Microcytosis Marked; Monocytes # (A) 0.2 k/uL (0-1.0); Monocytes % (A) 3 %; Neutrophils # (A) 8.2 k/uL (1.3-7.7); Neutrophils % (A) 87 %; Platelet Count 323 k/uL (150-450); Poikilocytosis Moderate; RBC 4.01 m/uL (4.30-5.90); RDW 19.9 % (11.5-15.5); WBC 9.4 k/uL (3.8-10.6)
[2018-09-25 04:51] LABS: African American GFR (CKD) >90 (>60 ml/min/1.73 sqM); Albumin 2.3 g/dL (3.5-5.0); Anion Gap 8 mmol/L; Blood Urea Nitrogen 26 mg/dL (9-20); Calcium 7.3 mg/dL (8.4-10.2); Carbon Dioxide 24 mmol/L (22-30); Chloride 114 mmol/L (98-107); Glucose 202 mg/dL (74-99); Phosphorus 3.5 mg/dL (2.5-4.5); Potassium 3.6 mmol/L (3.5-5.1); Sodium 146 mmol/L (137-145); Triglycerides 189 mg/dL (<150)
[2018-09-25 05:48] LABS: Glucose,Whole Blood 214 mg/dL (75-99)
[2018-09-25] MEDS: INSULIN ASPART (NovoLOG) 100 UNIT/ML VIAL SQ SCH ×4 (06:17→23:41)
[2018-09-25 07:25] LABS: ABG Base Excess 1.1 mmol/L; ABG HCO3 25 mmol/L (21-25); ABG Oxygen Saturation 98.5 % (94-97); ABG PCO2 37 mmHg (35-45); ABG PH 7.45 (7.35-7.45); ABG PO2 82 mmHg (83-108); ABG TCO2 26 mmol/L (19-24); Allen Test Performed? Yes
[2018-09-25] MEDS: SODIUM CHLORIDE 0.9% 1,000 ML IV SCH ×2 (08:03→11:58)
[2018-09-25] MEDS: NOREPINEPHRINE 8 MG in SODIUM CHLORIDE 0.9% 250 ML IV SCH ×2 (08:03→19:57)
[2018-09-25] MEDS: CHLORHEXIDINE GLUCONATE 15 ML CUP MUCOUS MEM SCH ×2 (08:11→19:58)
[2018-09-25] MEDS: HYDROCORTISONE SUCCINATE 100 MG/2 ML VIAL IV SCH ×3 (08:11→23:40)
[2018-09-25] MEDS: PIPERACILLIN-TAZOBACTAM 3.375 GM in SODIUM CHLORIDE 0.9% 100 ML IVPB SCH ×3 (08:12→23:41)
[2018-09-25] MEDS: HEPARIN SODIUM,PORCINE 5,000 UNIT/ML 1 ML VIAL IV PRN (08:12)
[2018-09-25] MEDS: FLUCONAZOLE IN NACL,ISO-OSM 200 MG in SALINE 1 100ML.BAG IVPB SCH (08:12)
[2018-09-25] MEDS: FUROSEMIDE 10 MG/ML 4 ML VIAL IV SCH ×2 (08:12→19:58)
[2018-09-25] MEDS: PANTOPRAZOLE 40 MG/10 ML VIAL IVP SCH (08:12)
[2018-09-25] MEDS: POTASSIUM CHLORIDE 10 MEQ in WATER FOR INJECTION 1 100ML.BAG IVPB SCH ×2 (08:13→10:00)
--- NOTE | 2018-09-25 08:25 | XR ---
EXAMINATION TYPE: XR chest 1V portable DATE OF EXAM: 09/25/2018 COMPARISON: Prior chest x-ray 09/24/2018 HISTORY: Intubated TECHNIQUE: Single frontal view of the chest is obtained. FINDINGS: Patient is rotated. Endotracheal tube, orogastric tube, right jugular central venous cathet er are stable and overlying appropriate positions. No evident pneumothorax. Bibasilar increased densi ty persists. Question a catheter overlying the left upper quadrant. There are overlying cardiac leads . Heart size likely stable but partially obscured as are the hemidiaphragms. Bilateral airspace disea se persists. IMPRESSION: Correlate for congestive heart failure, pneumonia, ARDS.
--- NOTE | 2018-09-25 09:35 | P.PN ---
<SchmidHellen Trisha - Last Filed: 09/25/18 09:32> Subjective Progress Note Date: 09/25/18 CHIEF COMPLAINT: abdominal pain HISTORY OF PRESENT ILLNESS: Patient s/p exploratory laparotomy, lysis of adhesions, decompression of colon and small bowel, transverse colectomy with takedown of splenic flexure, and repair of gastric ulcer with Dr. De Leon secondary to pneumoperitoneum, perforated gastric ulcer, ischemic colon at splenic flexure, and bowel obstruction. POD #9. The patient remains intubated on mechanical ventilation in the intensive care unit. patient remains on FiO2 of 40%. WBC 9.4. Hemoglobin 7.5. PHYSICAL EXAM: VITAL SIGNS: Reviewed GENERAL: Well-developed in no acute distress. Patient sedated on mechanical ventilation HEENT: ET tube noted. NG to LIS. No sclera icterus. Extraocular movements grossly intact. Moist buccal mucosa. Head is atraumatic, normocephalic. No nasal drainage. NECK: Supple without lymphadenopathy. CHEST: Non-labored respirations and equal bilateral excursions-remains on ventilator. CARDIOVASCULAR: Irregular rhythm. Palpable 2+ radial pulses. ABDOMEN: Abdomen nondistended, but obese. Wound vac to abdomen. CHAVEZ drain with serous drainage-connected to suction. Left-sided colostomy with stool present. Ostomy pink/red. MUSCULOSKELETAL: No clubbing or cyanosis. Generalized edema-improving NEUROLOGIC: Patient sedated on mechanical ventilation PSYCH: Patient sedated on mechanical ventilation SKIN: Well perfused. Good skin turgor. ASSESSMENT: 1. Abdominal pain 2. Pneumoperitoneum 3. S/P exploratory laparotomy, lysis of adhesions, decompression of colon and small bowel, transverse colectomy with takedown of splenic flexure, and repair of gastric ulcer secondary to pneumoperitoneum, perforated gastric ulcer, ischemic colon at splenic flexure, and bowel obstruction 4. Septic shock, present on admission secondary to above 5. History of atrial fibrillation, on long-term anticoagulation with Eliquis 6. History of bowel obstruction 7. History of laparoscopic Bruce fundoplication 8. History of hiatal hernia repair with mesh PLAN: 1. Continue ventilator management per Dr. Mendoza. 2. Continue TPN 3. Continue wound vac 4. Ostomy resource RN on consult 5. Continue antibiotics. Dr. Benedict on consult. 6. Anticoagulation per cardiology. Currently on heparin drip. 7. Patient will be scheduled for tracheostomy and PEG tube placement tomorrow afternoon with Dr. De Leon 8. Turn off heparin drip tomorrow morning at 0700 Nurse practitioner note has been reviewed by physician. Signing provider agrees with the documented findings, assessment, and plan of care. Objective - Vital Signs Vital signs: Vital Signs Temp 98.7 F 09/25/18 08:00 Pulse 84 09/25/18 08:30 Resp 26 H 09/25/18 08:30 BP 111/74 09/25/18 08:30 Pulse Ox 98 09/25/18 08:30 Intake & Output 09/24/18 09/25/18 09/25/18 18:59 06:59 18:59 Intake Total 2638 2831.916 257.311 Output Total 3260 2965 130 Balance -622 -133.084 127.311 Weight 150.7 kg Intake: IV 1963 1995 133 Dextrose 5% in Water 1, 825 900 75 000 ml @ 75 mls/hr IV . [id number] [facility] Rx#:[id number] Fluconazole in NaCl,Iso- 100 Osm 200 mg In Saline 1 100ml.bag @ 100 mls/hr IVPB DAILY [facility] Rx#: [id number] Mvi, Adult No.4 with Vit 605 660 55 K 10 ml Trace (Conc-1Ml/ Dose) 1 ml Sodium Acetate 30 meq Potassium Chloride 20 meq Calcium Gluconate 1 gm Potassium Phosphate 15 mmol In Amino Acid 5%-D15w 1,000 ml @ 55 mls/hr IV .Q19H7M [facility] Rx#:[id number] Piperacillin-Tazobactam 3 200 100 .375 gm In Sodium Chloride 0.9% 100 ml @ 25 mls/hr IVPB Q8HR [facility] Rx# :[id number] Potassium Chloride 20 meq 100 In Water For Injection 1 100ml.bag @ 50 mls/hr IVPB Q2H [facility] Rx#: [id number] Potassium Chloride 20 meq 100 300 In Water For Injection 1 100ml.bag @ 50 mls/hr IVPB Q2H [facility] Rx#: [id number] Pressure Bag 33 36 3 Intake, IV Titration 675 835.916 124.311 Amount Diltiazem 125 mg In 125 Sodium Chloride 0.9% 100 ml @ 5 MG/HR 5 mls/hr IV .Q24H [facility] Rx#:[id number] Heparin Sod,Pork in 0.45% 250 241.443 124.311 NaCl 25,000 unit In 0.45 % NaCl 1 250ml.bag @ 6.1 UNITS/KG/HR 9.998 mls/hr IV .Q24H [facility] Rx#: [id number] Propofol 1,000 mg In 300 594.473 Empty Bag 1 bag @ Titrate IV .Q0M [facility] Rx#: [id number] Output: Gastric Drainage 300 125 Drainage 350 550 Abdomen 350 450 Medial Abdomen 100 Urine 2610 2290 130 Other: Voiding Method Indwelling Catheter Indwelling Catheter Indwelling Catheter ABP, PAP, CO, CI - Last Documented Arterial Blood Pressure 112/52 - Labs CBC & Chem 7: 09/25/18 04:21 09/25/18 04:17 Labs: Abnormal Lab Results - Last 24 Hours (Table) 09/24/18 09/24/18 09/24/18 Range/Units 11:53 11:53 13:25 RBC (4.30-5.90) m/uL Hgb (13.0-17.5) gm/dL Hct (39.0-53.0) % MCV (80.0-100.0) fL MCH (25.0-35.0) pg MCHC (31.0-37.0) g/dL RDW (11.5-15.5) % Neutrophils # (1.3-7.7) k/uL Lymphocytes # (1.0-4.8) k/uL APTT (22.0-30.0) sec ABG pO2 79 L (83-108) mmHg ABG HCO3 26 H (21-25) mmol/L ABG Total CO2 (19-24) mmol/L ABG O2 Saturation 98.4 H (94-97) % Sodium (137-145) mmol/L Potassium 3.2 L (3.5-5.1) mmol/L Chloride (98-107) mmol/L BUN (9-20) mg/dL Glucose (74-99) mg/dL POC Glucose (mg/dL) 175 H (75-99) mg/dL Calcium (8.4-10.2) mg/dL Albumin (3.5-5.0) g/dL Triglycerides (<150) mg/dL 09/24/18 09/24/18 09/25/18 Range/Units 17:29 23:36 04:17 RBC (4.30-5.90) m/uL Hgb (13.0-17.5) gm/dL Hct (39.0-53.0) % MCV (80.0-100.0) fL MCH (25.0-35.0) pg MCHC (31.0-37.0) g/dL RDW (11.5-15.5) % Neutrophils # (1.3-7.7) k/uL Lymphocytes # (1.0-4.8) k/uL APTT (22.0-30.0) sec ABG pO2 (83-108) mmHg ABG HCO3 (21-25) mmol/L ABG Total CO2 (19-24) mmol/L ABG O2 Saturation (94-97) % Sodium 146 H (137-145) mmol/L Potassium (3.5-5.1) mmol/L Chloride 114 H (98-107) mmol/L BUN 26 H (9-20) mg/dL Glucose 202 H (74-99) mg/dL POC Glucose (mg/dL) 178 H 197 H (75-99) mg/dL Calcium 7.3 L (8.4-10.2) mg/dL Albumin 2.3 L (3.5-5.0) g/dL Triglycerides 189 H (<150) mg/dL 09/25/18 09/25/18 09/25/18 Range/Units 04:17 04:21 05:46 RBC 4.01 L (4.30-5.90) m/uL Hgb 7.5 L (13.0-17.5) gm/dL Hct 29.0 L (39.0-53.0) % MCV 72.3 L (80.0-100.0) fL MCH 18.8 L (25.0-35.0) pg MCHC 26.0 L (31.0-37.0) g/dL RDW 19.9 H (11.5-15.5) % Neutrophils # 8.2 H (1.3-7.7) k/uL Lymphocytes # 0.8 L (1.0-4.8) k/uL APTT 41.4 H (22.0-30.0) sec ABG pO2 (83-108) mmHg ABG HCO3 (21-25) mmol/L ABG Total CO2 (19-24) mmol/L ABG O2 Saturation (94-97) % Sodium (137-145) mmol/L Potassium (3.5-5.1) mmol/L Chloride (98-107) mmol/L BUN (9-20) mg/dL Glucose (74-99) mg/dL POC Glucose (mg/dL) 214 H (75-99) mg/dL Calcium (8.4-10.2) mg/dL Albumin (3.5-5.0) g/dL Triglycerides (<150) mg/dL 09/25/18 Range/Units 07:13 RBC (4.30-5.90) m/uL Hgb (13.0-17.5) gm/dL Hct (39.0-53.0) % MCV (80.0-100.0) fL MCH (25.0-35.0) pg MCHC (31.0-37.0) g/dL RDW (11.5-15.5) % Neutrophils # (1.3-7.7) k/uL Lymphocytes # (1.0-4.8) k/uL APTT (22.0-30.0) sec ABG pO2 82 L (83-108) mmHg ABG HCO3 (21-25) mmol/L ABG Total CO2 26 H (19-24) mmol/L ABG O2 Saturation 98.5 H (94-97) % Sodium (137-145) mmol/L Potassium (3.5-5.1) mmol/L Chloride (98-107) mmol/L BUN (9-20) mg/dL Glucose (74-99) mg/dL POC Glucose (mg/dL) (75-99) mg/dL Calcium (8.4-10.2) mg/dL Albumin (3.5-5.0) g/dL Triglycerides (<150) mg/dL Microbiology - Last 24 Hours (Table) 09/23/18 19:25 Gram Stain - Final Sputum Sputum Culture - Final 09/24/18 00:40 Blood Culture - Preliminary Blood No Growth after 24 hours 09/23/18 19:05 Gram Stain - Preliminary Dewin-Harris Body Fluid Culture - Preliminary Coagulase Negative Staph Assessment and Plan (1) Acute abdomen Current Visit: Yes Status: Acute Code(s): R10.0 - ACUTE ABDOMEN SNOMED Code(s): 3728334 (2) A-fib Current Visit: No Status: Acute Priority: High Code(s): I48.91 - UNSPECIFIED ATRIAL FIBRILLATION SNOMED Code(s): 56210188 (3) Abdominal pain Current Visit: No Status: Acute Code(s): R10.9 - UNSPECIFIED ABDOMINAL PAIN SNOMED Code(s): 75655171 (4) S/P exploratory laparotomy Current Visit: No Status: Acute Code(s): Z98.89 - OTHER SPECIFIED POSTPROCEDURAL STATES * DO NOT USE * SNOMED Code(s): 981099007 <Vanessa Arzate - Last Filed: 09/25/18 22:39> Subjective Patient seen and evaluated. No clinical improvement for ability to wean. Patient is scheduled for trach and PEG tomorrow. Objective - Vital Signs Vital signs: Vital Signs Temp 97.7 F 09/25/18 20:00 Pulse 95 09/25/18 22:00 Resp 26 H 09/25/18 22:00 BP 106/65 09/25/18 22:00 Pulse Ox 97 09/25/18 22:00 Intake & Output 09/25/18 09/25/18 09/26/18 06:59 18:59 06:59 Intake Total 2831.916 3267.917 604.097 Output Total 2965 3420 1150 Balance -133.084 -152.083 -545.903 Weight 150.7 kg Intake: IV 1995 159 454 Dextrose 5% in Water 900 900 225 000 ml @ 75 mls/hr IV . [id number] [facility] Rx#:[id number] Mvi, Adult No.4 with Vit 165 K 10 ml Trace (Conc-1Ml/ Dose) 1 ml Calcium Gluconate 1 gm Potassium Acetate 40 meq Potassium Phosphate 15 mmol In Amino Acid 5%-D15w 1,000 ml @ 55 mls/hr IV .Q19H2M [facility] Rx#:[id number] Mvi, Adult No.4 with Vit 660 660 55 K 10 ml Trace (Conc-1Ml/ Dose) 1 ml Sodium Acetate 30 meq Potassium Chloride 20 meq Calcium Gluconate 1 gm Potassium Phosphate 15 mmol In Amino Acid 5%-D15w 1,000 ml @ 55 mls/hr IV .Q19H7M [facility] Rx#:[id number] Piperacillin-Tazobactam 3 100 .375 gm In Sodium Chloride 0.9% 100 ml @ 25 mls/hr IVPB Q8HR [facility] Rx# :[id number] Potassium Chloride 20 meq 300 In Water For Injection 1 100ml.bag @ 50 mls/hr IVPB Q2H [facility] Rx#: [id number] Pressure Bag 36 36 9 Intake, IV Titration 642.382 6455.917 150.097 Amount Diltiazem 125 mg In 93.333 Sodium Chloride 0.9% 100 ml @ 5 MG/HR 5 mls/hr IV .Q24H [facility] Rx#:[id number] Heparin Sod,Pork in 0.45% 241.443 250.000 NaCl 25,000 unit In 0.45 % NaCl 1 250ml.bag @ 6.1 UNITS/KG/HR 9.998 mls/hr IV .Q24H [facility] Rx#: [id number] Mvi, Adult No.4 with Vit 1046 K 10 ml Trace (Conc-1Ml/ Dose) 1 ml Calcium Gluconate 1 gm Potassium Acetate 40 meq Potassium Phosphate 15 mmol In Amino Acid 5%-D15w 1,000 ml @ 55 mls/hr IV .Q19H2M [facility] Rx#:[id number] Propofol 1,000 mg In 594.473 282.584 150.097 Empty Bag 1 bag @ Titrate IV .Q0M [facility] Rx#: [id number] Output: Gastric Drainage 125 290 Drainage 550 560 Abdomen 450 550 Medial Abdomen 100 10 Urine 2290 2420 1000 Stool 150 150 Other: Voiding Method Indwelling Catheter Indwelling Catheter Indwelling Catheter ABP, PAP, CO, CI - Last Documented Arterial Blood Pressure 112/52 - Labs CBC & Chem 7: 09/25/18 04:21 09/25/18 14:00 Labs: Abnormal Lab Results - Last 24 Hours (Table) 09/24/18 09/25/18 09/25/18 Range/Units 23:36 04:17 04:17 RBC (4.30-5.90) m/uL Hgb (13.0-17.5) gm/dL Hct (39.0-53.0) % MCV (80.0-100.0) fL MCH (25.0-35.0) pg MCHC (31.0-37.0) g/dL RDW (11.5-15.5) % Neutrophils # (1.3-7.7) k/uL Lymphocytes # (1.0-4.8) k/uL APTT 41.4 H (22.0-30.0) sec ABG pO2 (83-108) mmHg ABG Total CO2 (19-24) mmol/L ABG O2 Saturation (94-97) % Sodium 146 H (137-145) mmol/L Potassium (3.5-5.1) mmol/L Chloride 114 H (98-107) mmol/L BUN 26 H (9-20) mg/dL Glucose 202 H (74-99) mg/dL POC Glucose (mg/dL) 197 H (75-99) mg/dL Calcium 7.3 L (8.4-10.2) mg/dL Albumin 2.3 L (3.5-5.0) g/dL Triglycerides 189 H (<150) mg/dL 09/25/18 09/25/18 09/25/18 Range/Units 04:21 05:46 07:13 RBC 4.01 L (4.30-5.90) m/uL Hgb 7.5 L (13.0-17.5) gm/dL Hct 29.0 L (39.0-53.0) % MCV 72.3 L (80.0-100.0) fL MCH 18.8 L (25.0-35.0) pg MCHC 26.0 L (31.0-37.0) g/dL RDW 19.9 H (11.5-15.5) % Neutrophils # 8.2 H (1.3-7.7) k/uL Lymphocytes # 0.8 L (1.0-4.8) k/uL APTT (22.0-30.0) sec ABG pO2 82 L (83-108) mmHg ABG Total CO2 26 H (19-24) mmol/L ABG O2 Saturation 98.5 H (94-97) % Sodium (137-145) mmol/L Potassium (3.5-5.1) mmol/L Chloride (98-107) mmol/L BUN (9-20) mg/dL Glucose (74-99) mg/dL POC Glucose (mg/dL) 214 H (75-99) mg/dL Calcium (8.4-10.2) mg/dL Albumin (3.5-5.0) g/dL Triglycerides (<150) mg/dL 09/25/18 09/25/18 09/25/18 Range/Units 11:41 14:00 14:00 RBC (4.30-5.90) m/uL Hgb (13.0-17.5) gm/dL Hct (39.0-53.0) % MCV (80.0-100.0) fL MCH (25.0-35.0) pg MCHC (31.0-37.0) g/dL RDW (11.5-15.5) % Neutrophils # (1.3-7.7) k/uL Lymphocytes # (1.0-4.8) k/uL APTT 54.0 H (22.0-30.0) sec ABG pO2 (83-108) mmHg ABG Total CO2 (19-24) mmol/L ABG O2 Saturation (94-97) % Sodium (137-145) mmol/L Potassium 3.3 L (3.5-5.1) mmol/L Chloride (98-107) mmol/L BUN (9-20) mg/dL Glucose (74-99) mg/dL POC Glucose (mg/dL) 189 H (75-99) mg/dL Calcium (8.4-10.2) mg/dL Albumin (3.5-5.0) g/dL Triglycerides (<150) mg/dL 09/25/18 Range/Units 18:04 RBC (4.30-5.90) m/uL Hgb (13.0-17.5) gm/dL Hct (39.0-53.0) % MCV (80.0-100.0) fL MCH (25.0-35.0) pg MCHC (31.0-37.0) g/dL RDW (11.5-15.5) % Neutrophils # (1.3-7.7) k/uL Lymphocytes # (1.0-4.8) k/uL APTT (22.0-30.0) sec ABG pO2 (83-108) mmHg ABG Total CO2 (19-24) mmol/L ABG O2 Saturation (94-97) % Sodium (137-145) mmol/L Potassium (3.5-5.1) mmol/L Chloride (98-107) mmol/L BUN (9-20) mg/dL Glucose (74-99) mg/dL POC Glucose (mg/dL) 182 H (75-99) mg/dL Calcium (8.4-10.2) mg/dL Albumin (3.5-5.0) g/dL Triglycerides (<150) mg/dL Microbiology - Last 24 Hours (Table) 09/23/18 19:05 Gram Stain - Preliminary Edwin-Harris Body Fluid Culture - Preliminary Staphylococcus epidermidis Gram Neg Bacilli 09/23/18 19:25 Gram Stain - Final Sputum Sputum Culture - Final 09/24/18 00:40 Blood Culture - Preliminary Blood No Growth after 24 hours
[2018-09-25 11:44] LABS: Glucose,Whole Blood 189 mg/dL (75-99)
--- NOTE | 2018-09-25 11:50 | P.PN ---
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 The patient presented yesterday to the emergency department with extreme abdominal pain. The patient was apparently a constipated for a week and he was doing enemas at home. He ultimately felt a pop in the lower portion of his abdomen on the day of the presentation and he came in with severe abdominal pain. He was having emesis. CAT scan of the abdomen was done in the emergency department the patient was found to have no apparent 20. The patient had abdominal distention and his abdominal size was twice the normal. His blood pressure was in the low 90s. He was tachycardic with a heart rate in the 1:30. He was given IV fluids. He was given IV Zosyn. Blood cultures were sent. He was seen by general surgery and the patient was taken to the operating room, and the patient was found to have perforated gastric ulcer, ischemic colon at the site of the splenic flexure of bowel obstruction. The patient underwent expiratory laparotomy, lysis of adhesions, decompression of the colon and small bowel, transverse colectomy and takedown of the splenic flexure and repair of the gastric ulcer. Estimated blood loss is only 100 mL. The patient overnight was brought into the intensive care unit. The patient was resuscitated aggressively with IV fluids. He was given colloids and crystalloids. He is given 8 L of IV fluids. He was started on pressors and currently norepinephrine infusion is running at 62 g per minute. The patient was also started on physiologic dose vasopressin at 0.03 units per minute. Currently is on propofol at 14 mics for sedation. He is receiving normal saline at the rate of 150 mL an hour. Urine output is in order of 20-30 mL an hour. He is warm. His temperature was 100.5. He is on a mechanical ventilator. He is on assist-control mode of ventilation with a tidal volume of 550 at the rate of 26 with an FiO2 of 80% and a PEEP of 5. Blood gases from this morning shows a pH of 7.315 with a pCO2 of 40 and pO2 of 134. His echocardiogram from previous admissions showed an ejection fraction of 55-60%. He had a preserved LV function. No significant valvular abnormalities. Pulmonary to pressure estimated to be 44. His cardiac rhythm is currently sinus. The patient has a CHAVEZ drain in his abdomen and this is on the r ight side and output is around 80-90 mL of serous material. He also has a colostomy and the site is nonfunctioning it seems to be viable at this point. Note that the patient was in the hospital and he was discharged home on 09/12/2018 after being treated for a flutter/failure with rapid ventricular response and shortness of breath and acute diastolic heart failure. Upon discharge, the patient was started on amiodarone thousand milligrams twice a day, Eliquis, Aldactone, and he was given Augmentin on outpatient basis and a prednisone burst taper. He was discharged home on a 40 mg of prednisone. On today's evaluation of 09/18/2018, the patient is postop day #2. The patient is still sedated with propofol at 35 g per KG per minute. The patient is was sedated and calm and comfortable on a mechanical ventilator essentially on the same vent setting with a tidal volume of 550 and FiO2 of 50% with a PEEP of 5 and a respiratory rate of 26. The morning blood gases showed a pH of 7.36 with a pCO2 of 33 and pO2 of 109 and this was done and FiO2 of 50%. Chest x-ray showing cardiomegaly and some mild pulmonary vascular congestion. ET tube is in a good location. The patient has no significant rest or secretions. Hemodynamically, the patient has been aggressively resuscitated IV fluids. The patient is currently on normal saline the rate of 150 mL an hour. The patient is producing more than 50 mL an hour of urine output. The patient is still requiring pressors. The patient is on physiologic dose vasopressin. The patient is also on norepinephrine infusion which is currently running at 21 g per minute. The patient is afebrile. The patient is nothing by mouth. The patient has bowel sounds and the patient has also has a colostomy in place. NG tube is in place output has been around 200 mL over the past 8 hours. Earlier this morning, the patient was seen to be in tachycardia. A 12-lead EKG was done and the rhythm is essentially undetermined. This is most likely supraventricular rhythm, A. fib versus flutter. SCDs felt to be less likely. A. fib is favored nontender the patient has had previous history of atrial fibrillation. This has not affected the patient's overall hemodynamics and blood pressure control. The white cell count is at 9.6. Hemoglobin was 8.5. The patient continues to be in acute kidney failure. Creatinine is up to 1.80 is stable compared to yesterday. On today's evaluation of 09/19/2018 the patient is postop day #3. On today's evaluation that has been further progress and the patient's blood pressure. Currently is only on 5 mics of norepinephrine infusion the patient is also on vasopressin physiologic dose. There has been considerable improvement in the pressor requirements over the past 24-48 hours. He is still producing more than 100 mL of urine output. Afebrile. Still intubated on a mechanical ventilator. Vent settings are essentially unchanged compared to yesterday with a tidal volume of 550 FiO2 of 50% with a PEEP of 5 and the respiratory rate of 26. Blood gases from today showed a pH of 7.36 with a pCO2 of 35 and pO2 of 121 and this was done and FiO2 of 50%. The patient is was arrested on propofol which is running at 40 mics. Chest x-ray from today shows bilateral pleural effusion and ET tube is in a good location. The patient has positive bowel sounds. The patient is producing some stool activity in his colostomy bag. The CHAVEZ drain output is minimal. NG tube output is minimal. The patient is still on broad- spectrum antibiotic coverage. Cultures from the abdominal wound have been all negative. White cell count is not elevated. Hemoglobin stable at 7.8. Family is at the bedside. As far as atrial fibrillation, the patient was bolused with amiodarone and following that the patient was maintained at a lower heart rate yet still in atrial fibrillation. No anticoagulants for now. The function is improving and the creatinine is down to 1.2. On 09/20/2018 patient is postop day #4. The patient is sedated this morning. The patient is off pressors and norepinephrine infusion and vasopressin has been discontinued. Urine output is excellent. We have noted increased in output from the CHAVEZ drain which has put out approximately 400 mL over the past few hours. Meanwhile the, surgical wound site is dry clean and intact. The patient has a functional colostomy and there is stool output in the colostomy bag. The patient remains on a mechanical ventilator. Vent settings are essentially unchanged. The patient had a blood gases this morning that showed a pH of 7.4 with a pCO2 of 34 and pO2 of 76. The patient had a chest x-ray that showed vascular congestion and edema and bilateral pleural effusions. The patient is on TPN for nutritional support. IV fluids have been cut down to KVO. He is on propofol for sedation. Elisha output is minimal at this point in time. No fever. No chills. Sedation holiday was given yesterday at the patient was not ready for any weaning. The same will be done today. Meanwhile, the patient is still in atrial fibrillation. The patient was taken off the amiodarone drip. The patient was started in IV heparin. Cardizem drip will be started today for rate control. The patient is afebrile. Renal function is normalized and the creatinine is down to 1.02. On 09/21/2018 patient is postop day #5. Sedation holiday was given. The patient woke up appropriately. Unable to give me good weaning parameters. Given a showed spontaneous breathing trial and he feels that the patient became tachypneic tachycardic and the trial was discontinued. He is back on assist control mode of ventilation. Chest x-ray showing pulmonary vessel congestion/edema. The patient is a negative fluid balance of 1.3 L and the patient is producing excellent urine output. His dose of Lasix will be given to augment the urine output and establish a better negative fluid balance over the next 24 hours. Otherwise, he started on TPN for nutritional support. He is on a Cardizem drip for rate control. He is in atrial fibrillation. He is on IV heparin. He is afebrile. He is on broad-spectrum antibiotics. The ostomy is viable and there is stool within the bag. Discussed the case with general surgery and no plans for feeding at this point in time. A barium swallow needs to be done later stage to make sure there is no bowel leak. Reevaluated today on 09/22/2018, patient remains on mechanical ventilation, remains on multiple meds, but not requiring any pressors. He is on vent settings assist-control mode of mechanical ventilation with tidal volume of 550 rate of 26, FiO2 40% PEEP of 5. Patient remains on Cardizem, on TPN, heparin, Zosyn and Diflucan and on propofol drip. Weaning trial failed yesterday, and the same happened today, patient was taken off propofol, and after few hours he became extremely agitated, tachypneic, tachycardic, and had to place him back on propofol. However his mental status was noted to be intact, and he was appropriate off propofol. I have a feeling that the patient may eventually require tracheostomy if he continues to fail daily weaning trials. Labs were reviewed his sodium is elevated chloride is 122, hence his IV fluid will be changed to D5W. His ABG showed a pO2 of 89 pCO2 of 35 pH of 7.43. CBC is relatively unremarkable WBC count is 8.5 hemoglobin is 7.8. His ostomy is viable. Patient remains on TPN. Reevaluated today on 09/23/2018, remains in the ICU, mechanically ventilated, not requiring any pressors, ventilator settings are basically the same as noted yesterday, tidal volume of 550 assist-control rate of 26 FiO2 of 40% PEEP of 5. Remains on antibiotics, heparin, TPN, Cardizem remains on propofol, chest x-ray is showing worsening airspace disease especially in the left lung, ultrasound of the chest did not reveal significant pleural effusion for thoracentesis. Nanda ent would have sedation interruption today, however based on the chest x-ray appearance, I have a feeling the patient will not tolerate any weaning. I am a bit concerned that the patient may be developing or having evolving ARDS picture and that is yet to be determined. In the meantime I will continue patient on diuretics, his urine output is excellent about 150 mL per hour. I kept him on D5W at 75 mL per hour. And I have recommended CVP monitoring. CBC today showed WBC count of 9.4 hemoglobin of 7.6. ABG this morning showed a pO2 of 71 pCO2 of 40 0 pH of 7.40 sodium remains elevated at 151, renal profile is relatively normal otherwise. Family is at bedside, and updated on his condition Reevaluated today on 09/24/2018, patient remains mechanically ventilated, in the ICU, his ventilator settings are tidal volume of 550 FiO2 of 50% rate of 26 and PEEP of 5.Remains on propofol, Cardizem drip, heparin drip, not requiring any pressors. Chest x-ray is showing evidence of pulmonary edema which again could be cardiogenic or noncardiogenic in nature, there is also some atelectasis at the bases. Pneumonia is not entirely excluded. Chest x-ray however is improving compared to yesterday's chest x-ray, ABG showed a pO2 of 79 pCO2 of 39 pH of 7.43. WBC count is 7.4 hemoglobin is 8.1. Renal profile seems to be normal. Potassium is a bit low at 3.2 being addressed. Patient remains on TPN, family updated on his condition today Reevaluated today on 09/25/2018, remains in the ICU, remains on mechanical ventilation, and his ventilator settings are basically the same as noted above. No change in the ventilator settings, FiO2 is down to 40%. ABG this morning showed a pO2 of 82 pCO2 of 37 pH of 7.45. CBC is relatively normal hemoglobin is 7.5, sodium is significantly improved down to 146 renal profile is normal with a BUN of 26 creatinine 0.82. Chest x-ray is suggestive of bilateral airspace disease, which is difficult to determine whether it is diastolic congestive heart failure or pneumonia or noncardiogenic pulmonary edema but nonetheless airspace disease seems to be improving. I believe it is likely a combination of pneumonia and noncardiogenic pulmonary edema. Patient was given a trial of weaning, however was poorly tolerated, he was awakened, seems to be quite weak, followed simple instructions, will keep him scheduled for tracheostomy tomorrow. Objective - Vital Signs Vital signs: Vital Signs Temp 98.7 F 09/25/18 08:00 Pulse 102 H 09/25/18 11:07 Resp 26 H 09/25/18 11:00 BP 126/92 09/25/18 11:00 Pulse Ox 99 09/25/18 11:00 Intake & Output 09/24/18 09/25/18 09/25/18 18:59 06:59 18:59 Intake Total 2638 2831.916 656.311 Output Total 3260 2965 1430 Balance -622 -133.084 -773.689 Weight 150.7 kg 150.7 kg Intake: IV 1962 Dextrose 5% in Water 900 300 000 ml @ 75 mls/hr IV . [id number] [facility] Rx#:[id number] Fluconazole in NaCl,Iso- 100 Osm 200 mg In Saline 1 100ml.bag @ 100 mls/hr IVPB DAILY [facility] Rx#: [id number] Mvi, Adult No.4 with Vit 605 660 220 K 10 ml Trace (Conc-1Ml/ Dose) 1 ml Sodium Acetate 30 meq Potassium Chloride 20 meq Calcium Gluconate 1 gm Potassium Phosphate 15 mmol In Amino Acid 5%-D15w 1,000 ml @ 55 mls/hr IV .Q19H7M [facility] Rx#:[id number] Piperacillin-Tazobactam 3 200 100 .375 gm In Sodium Chloride 0.9% 100 ml @ 25 mls/hr IVPB Q8HR [facility] Rx# :[id number] Potassium Chloride 20 meq 100 In Water For Injection 1 100ml.bag @ 50 mls/hr IVPB Q2H [facility] Rx#: [id number] Potassium Chloride 20 meq 100 300 In Water For Injection 1 100ml.bag @ 50 mls/hr IVPB Q2H [facility] Rx#: [id number] Pressure Bag 33 36 12 Intake, IV Titration 675 835.916 124.311 Amount Diltiazem 125 mg In 125 Sodium Chloride 0.9% 100 ml @ 5 MG/HR 5 mls/hr IV .Q24H [facility] Rx#:[id number] Heparin Sod,Pork in 0.45% 250 241.443 124.311 NaCl 25,000 unit In 0.45 % NaCl 1 250ml.bag @ 6.1 UNITS/KG/HR 9.998 mls/hr IV .Q24H [facility] Rx#: [id number] Propofol 1,000 mg In 300 594.473 Empty Bag 1 bag @ Titrate IV .Q0M [facility] Rx#: [id number] Output: Gastric Drainage 300 125 Drainage 350 550 Abdomen 350 450 Medial Abdomen 100 Urine 2610 2290 1430 Other: Voiding Method Indwelling Catheter Indwelling Catheter Indwelling Catheter ABP, PAP, CO, CI - Last Documented Arterial Blood Pressure 112/52 - Exam Physical Exam: Revealed 72-year-old white male on mechanical ventilation, Head: Atraumatic, normocephalic. HEENT:[Neck is supple.] [No neck masses.] [No thyromegaly.] [No JVD.] Endotracheal tube is intact. Moist mucous membranes noted. Chest: [Symmetrical chest expansion, crackles and rhonchi noted bilaterally Cardiac Exam: [Normal S1 and S2, no S3 gallop, no murmur.] Abdomen: [Postsurgical, Soft, nontender, no megaly, no rebound, no guarding, diminished bowel sounds, colostomy seems to be viable with healthy tissue, and some output noted in the colostomy bag. Abdominal incision is dry and clean. Extremities: [No clubbing, trace of bipedal edema. edema, no cyanosis.] Neurological Exam: Off propofol, patient was arousable, followed simple instructions, noted to be generally weak. Lymphatics: No lymphadenopathy. Skin: No rashes. Psychiatric: Could not be assessed. - Labs CBC & Chem 7: 09/25/18 04:21 09/25/18 04:17 Labs: Abnormal Lab Results - Last 24 Hours (Table) 09/24/18 09/24/18 09/24/18 Range/Units 11:53 11:53 13:25 RBC (4.30-5.90) m/uL Hgb (13.0-17.5) gm/dL Hct (39.0-53.0) % MCV (80.0-100.0) fL MCH (25.0-35.0) pg MCHC (31.0-37.0) g/dL RDW (11.5-15.5) % Neutrophils # (1.3-7.7) k/uL Lymphocytes # (1.0-4.8) k/uL APTT (22.0-30.0) sec ABG pO2 79 L (83-108) mmHg ABG HCO3 26 H (21-25) mmol/L ABG Total CO2 (19-24) mmol/L ABG O2 Saturation 98.4 H (94-97) % Sodium (137-145) mmol/L Potassium 3.2 L (3.5-5.1) mmol/L Chloride (98-107) mmol/L BUN (9-20) mg/dL Glucose (74-99) mg/dL POC Glucose (mg/dL) 175 H (75-99) mg/dL Calcium (8.4-10.2) mg/dL Albumin (3.5-5.0) g/dL Triglycerides (<150) mg/dL 09/24/18 09/24/18 09/25/18 Range/Units 17:29 23:36 04:17 RBC (4.30-5.90) m/uL Hgb (13.0-17.5) gm/dL Hct (39.0-53.0) % MCV (80.0-100.0) fL MCH (25.0-35.0) pg MCHC (31.0-37.0) g/dL RDW (11.5-15.5) % Neutrophils # (1.3-7.7) k/uL Lymphocytes # (1.0-4.8) k/uL APTT (22.0-30.0) sec ABG pO2 (83-108) mmHg ABG HCO3 (21-25) mmol/L ABG Total CO2 (19-24) mmol/L ABG O2 Saturation (94-97) % Sodium 146 H (137-145) mmol/L Potassium (3.5-5.1) mmol/L Chloride 114 H (98-107) mmol/L BUN 26 H (9-20) mg/dL Glucose 202 H (74-99) mg/dL POC Glucose (mg/dL) 178 H 197 H (75-99) mg/dL Calcium 7.3 L (8.4-10.2) mg/dL Albumin 2.3 L (3.5-5.0) g/dL Triglycerides 189 H (<150) mg/dL 09/25/18 09/25/18 09/25/18 Range/Units 04:17 04:21 05:46 RBC 4.01 L (4.30-5.90) m/uL Hgb 7.5 L (13.0-17.5) gm/dL Hct 29.0 L (39.0-53.0) % MCV 72.3 L (80.0-100.0) fL MCH 18.8 L (25.0-35.0) pg MCHC 26.0 L (31.0-37.0) g/dL RDW 19.9 H (11.5-15.5) % Neutrophils # 8.2 H (1.3-7.7) k/uL Lymphocytes # 0.8 L (1.0-4.8) k/uL APTT 41.4 H (22.0-30.0) sec ABG pO2 (83-108) mmHg ABG HCO3 (21-25) mmol/L ABG Total CO2 (19-24) mmol/L ABG O2 Saturation (94-97) % Sodium (137-145) mmol/L Potassium (3.5-5.1) mmol/L Chloride (98-107) mmol/L BUN (9-20) mg/dL Glucose (74-99) mg/dL POC Glucose (mg/dL) 214 H (75-99) mg/dL Calcium (8.4-10.2) mg/dL Albumin (3.5-5.0) g/dL Triglycerides (<150) mg/dL 09/25/18 Range/Units 07:13 RBC (4.30-5.90) m/uL Hgb (13.0-17.5) gm/dL Hct (39.0-53.0) % MCV (80.0-100.0) fL MCH (25.0-35.0) pg MCHC (31.0-37.0) g/dL RDW (11.5-15.5) % Neutrophils # (1.3-7.7) k/uL Lymphocytes # (1.0-4.8) k/uL APTT (22.0-30.0) sec ABG pO2 82 L (83-108) mmHg ABG HCO3 (21-25) mmol/L ABG Total CO2 26 H (19-24) mmol/L ABG O2 Saturation 98.5 H (94-97) % Sodium (137-145) mmol/L Potassium (3.5-5.1) mmol/L Chloride (98-107) mmol/L BUN (9-20) mg/dL Glucose (74-99) mg/dL POC Glucose (mg/dL) (75-99) mg/dL Calcium (8.4-10.2) mg/dL Albumin (3.5-5.0) g/dL Triglycerides (<150) mg/dL Microbiology - Last 24 Hours (Table) 09/23/18 19:25 Gram Stain - Final Sputum Sputum Culture - Final 09/24/18 00:40 Blood Culture - Preliminary Blood No Growth after 24 hours 09/23/18 19:05 Gram Stain - Preliminary [facility] Body Fluid Culture - Preliminary Coagulase Negative Staph Assessment and Plan Assessment: 1 perforated gastric ulcer/ischemic colon at the level of splenic fracture with bowel obstruction. Status post exploratory laparotomy, lysis of adhesions, repair of a gastric ulcer, transverse colectomy postoperative day #9 2 septic shock secondary to abdominal sepsis, recovered. 3 acute hypoxic respiratory failure secondary to septic shock and abdominal sepsis. 4 acute kidney injury secondary to above, recovered 5 mild lactic acidosis, resolved 6 history of paroxysmal atrial fibrillation with a recent admission to the hospital because of A. fib/flutter with RVR current rhythm is sinus. Remains on heparin and Cardizem. 7 COPD, presently inactive. 8 bronchial asthma presently inactive 9 suspect acute diastolic heart failure, improving with diuretics, chest x-ray is also improving. ABG is improving. 10 obstructive sleep apnea noncompliant with CPAP therapy 11 diabetes mellitus type 2, on insulin protocol. 12 chronic hypoxic respiratory failure with an oxygen at 2 L per minute nasal cannula on outpatient basis 13 suspect some component of critical illness polyneuropathy. Patient seems to be quite weak. Recommendation: Continue ventilatory support Continue antibiotics, empirically. Continue GI and DVT prophylaxis Continue diuretics, monitor electrolytes, especially sodium. Continue D5 W to correct his hypernatremia Continue TPN Continue to monitor daily electrolytes Continue daily interruption of sedation and mental assessment. This was done today, and patient could not be weaned easily. Discussed his condition with family at bedside, patient isn't ready scheduled to have a tracheostomy and possibly a PEG tube placement tomorrow. We keep that scheduled. Will follow. Critical care time is 40 minutes Time with Patient: Greater than 30
--- NOTE | 2018-09-25 12:48 | PN ---
PROGRESS NOTE Deondre is a 72-year-old gentleman admitted to hospital with perforated bowel, has atrial fibrillation and has left atrial appendage thrombus. This morning he remains intubated on vent. He is postop day #9. PHYSICAL EXAMINATION: On exam, heart rate is 90 to 100 beats per minute. Blood pressure is 126/90. Respiratory rate is 18. Chest exam reveals good air entry bilaterally. Heart exam reveals first and second heart sounds, irregular rhythm. Abdomen is status post surgery. Examination of extremities reveals 1+ edema. Peripheral pulses are diminished. LABS: Labs show a hemoglobin of 7.5. Potassium is 3.6. Creatinine is 0.8. ASSESSMENT: 1. Chronic atrial fibrillation. 2. Left atrial appendage thrombus. 3. Perforated bowel. PLAN: Continue the IV heparin. Continue IV Lasix. Will start him back on the calcium channel blockers currently not on the IV Cardizem. MMODL / IJN: [id number] /
[2018-09-25] MEDS: INSULIN DETEMIR (LEVEMIR) 100 UNIT/ML SYR SQ SCH (13:40)
--- NOTE | 2018-09-25 14:38 | P.PN ---
Subjective Progress Note Date: 09/25/18 This is a 72-year-old male patient of Dr. Cevallos with past history of chronic hypoxic respiratory failure on home O2 obstructive sleep apnea on CPAP, paroxysmal atrial fibrillation, chronic diastolic heart failure, severe COPD, morbid obesity with BMI of 47, hypertension hypertensive cardiovascular disease, mild intermittent asthma, hyperlipidemia, gastroesophageal reflux disease, diabetes mellitus type 2, cellulitis of the abdominal wall. Patient was recently hospitalized and discharged home on September 12 and treated for acute diastolic heart failure, atrial flutter/atrial fibrillation with rapid ventricular response status post MIKE which found a small atrial appendage thrombus. The patient was stabilized and discharged home in stable condition and had been started on amiodarone, eliquis, Aldactone, prednisone and Augmentin. Patient presented to [facility] emergency center for evaluation. He was afebrile, heart rate 130s, blood pressure 119/79, pulse ox 95%. White count was 5.9, hemoglobin 10.6, platelet count 4-72. Sodium 133, potassium 5.4, chloride 96, CO2 20, BUN 36 and creatinine 1.6, blood sugar 178. CAT scan of the abdomen and pelvis revealed pneumoperitoneum. Bowel distention. Bowel ischemia not excluded. No clear obstruction. Findings may be due to ileus. Patient was provided IV fluids, pain medication and Zosyn patient was seen by Dr. De Leon in the emergency center and taken to the OR found to have a perforated gastric ulcer, ischemic colon at the site of splenic flexure of the bowel obstruction. Patient underwent exploratory laparotomy, lysis of adhesions, decompression of the colon and small bowel, transverse colectomy and takedown of splenic flexure and repair of a gastric ulcer. Patient was then transferred to the intensive care unit and followed by Dr. Red. He is status post greater than 8 L of IV fluid and on norepinephrine and subsequent started on vasopressin. Urine output has been marginal patient remains intubated and on mechanical ventilation with tidal volume 550, FiO2 of 50% and PEEP of 5. The patient is on sedation. 09/18: Patient remains in intensive care unit intubated and on mechanical vent ilation with tidal volume 550, FiO2 50, PEEP 5. NG tube with black drainage. He is on 22 mics of levo fed and 0.03 vasopressin. Patient was started on amiodarone due to continued A. fib with RVR. Heart rate is in the 140s, blood pressure systolic 99. A.m. lab work white count 9.6, hemoglobin 8.5, platelet count 368. Sodium 136, potassium 4.9, chloride 108, CO2 18, BUN 39 creatinine 1.81. Blood sugars are running between 141 and 161. Urine culture is in progress and blood culture is no growth at [address] Benedict is recommended continuing Zosyn and Diflucan. Son is at bedside and all questions have been answered. 09/19: Patient remains in the intensive care unit intubated and on mechanical ventilation with tidal volume 550, FiO2 40 and PEEP of 5. Norepinephrine is now down to 5 mics and minimal on vasopressin. Urine output has been more than adequate. He has been afebrile. He is continued on sedation with propofol. A sedation holiday was attempted today but patient became tachypneic. Patient is back on sedation with plan for tomorrow for sedation holiday tomorrow. Patient has had output from colostomy and passing gas and colostomy. Decreased output from NG tube and from CHAVEZ drain. WBC 8.6, hemoglobin 7.8. He has been afebrile, heart rate 99, blood pressure 90/63. TPN has been started. Amiodarone drip to be discontinued. school lunch monitor is currently A. fib with controlled rate. 09/20 Patient remains in ICU, currently nothing by mouth, CHAVEZ drain has drained ov er 2 L in 24 hours, patient has been off pressors, urine output is normal, patient is still on TPN, patient still has abdominal discomfort, otherwise no chest pain no shortness of breath, no palpitations. Hemoglobin currently at 7.4 from an admitting hemoglobin of 9.4, iron studies to be done, agent has initial myelocytes on admission, creatinine 1.02 from 1.2, surgical incision is dry, there is stool output in the colostomy bag, patient remains on mechanical ventilator, unchanged and settings. Followed closely by pulmonary medicine, Cardizem drip was initiated for atrial fibrillation. Attempt to be made with weaning ventilatory support in a.m. : Postop day #5, he was given sedation holiday today, and was able to follow verbal commands, unable to wean today secondary to parameters from Dr. Red, patient went back to assist control mode of ventilation, Lasix was given 401 dose for CHF, pulmonary edema, blood pressure remains stable, negative balance of 1.3 L, urine output is good, has decreased output on the CHAVEZ drain, small amount of mucus stools today, still diminished bowel sounds currently nothing by mouth, general surgery following closely, 09/22: Patient remains intubated and on mechanical ventilation with tidal volume 550, FiO2 40, PEEP 5. Patient failed weaning attempt this morning. Patient is off vasopressors. He has been afebrile, heart rate 108, blood pressure 116/57. Repeat lab work reveals white count of 8.5, hemoglobin 7.8, platelet count 372. Sodium is 150, potassium 3.9, chloride 122, CO2 20, BUN 29 creatinine 0.92. Blood sugars run between 160 08/[birth year]/1976. Phosphorus 3.4. Magnesium 2.4. Repeat chest x-ray this morning reveals persistent bilateral infiltrate and pleural effusion correlate for heart failure. Patient is maintained on Cardizem drip started over the weekend by binitrotoluene operator. The patient is also continued on TPN. No plan for tube feedings until extubated. Patient does have a liquid stool in ostomy. Urine output has been adequate. CHAVEZ drain remains in place. Consult for cardiology added for atrial fibrillation. 09/23: Repeat chest x-ray shows diffuse pleuroparenchymal changes are stable correlate for diffuse pneumonia versus heart failure. Chest ultrasound shows small left pleural effusion. Cardiology is following for atrial fibrillation. Patient is maintained on IV Cardizem and heparin. Blood pressure is currently controlled. Heart rate is also controlled. The temperature max 100.7, heart rate 98, blood pressure 126/83, pulse ox 93%. We have ordered pancultures including blood culture, sputum, urine, CHAVEZ drain cultures to be obtained. Patient is continued on sedation, intubation and mechanical ventilation. Tidal volume FiO2 550, FiO2 40, PEEP of 5. Repeat lab work reveals white count of 9.4, hemoglobin 7.6, count 372. Sodium 151, potassium 3.4, chloride 119, CO2 24, creatinine 0.94, BUN 27. Blood sugars running between 170 and 182. General surgery planning for wound VAC to the abdominal incision. Patient is now on IV Lasix [address] Mendoza is concern for evolving ARDS. Anticipate probable trach and PEG tube placement by the end of the week. 09/24: The patient remains intubated and on mechanical ventilation with tidal volume 550, FiO2 50%, PEEP 5. Patient remains on sedation. No low-grade fevers this morning. school lunch monitor is A. fib with controlled rate in the 80s and 90s. Patient remains on Cardizem drip and heparin drip. Blood pressure is currently stable. Lasix is at 40 mg IV every 12 hours with noted decrease edema. Patient has good urine output, positive stool output. Patient has been started on Solu-Cortef. 09/25: Patient remains intubated and on mechanical ventilation with tidal volume 550, FiO2 40, PEEP 5. He is on norepinephrine. Patient is scheduled for trach and PEG tube tomorrow. NG tube is in place to suction. He still noted to have generalized anasarca and now hydrocele on the scrotum. Patient has been afebrile, heart rate 88, blood pressure 117/68. Repeat lab work reveals hemoglobin 7.5, WBC 9.4, hemoglobin 323. Sodium 146, potassium 3.6, chloride 114, CO2 24, BUN 26, creatinine 0.82. Blood sugars in the low 200s. Patient will be started on Levemir 6 units daily. Objective - Vital Signs Vital signs: Vital Signs Temp 98.6 F 09/25/18 12:00 Pulse 88 09/25/18 12:00 Resp 26 H 09/25/18 12:00 BP 123/70 09/25/18 12:00 Pulse Ox 98 09/25/18 12:00 Intake & Output 09/24/18 09/25/18 09/25/18 18:59 06:59 18:59 Intake Total 2638 2831.916 982.644 Output Total 3260 2965 1960 Balance -622 -133.084 -977.356 Weight 150.7 kg 150.7 kg Intake: IV 1962 1995 66 Dextrose 5% in Water 82 900 375 000 ml @ 75 mls/hr IV . [id number] [facility] Rx#:[id number] Fluconazole in NaCl,Iso- 100 Osm 200 mg In Saline 1 100ml.bag @ 100 mls/hr IVPB DAILY [facility] Rx#: [id number] Mvi, Adult No.4 with Vit 605 660 275 K 10 ml Trace (Conc-1Ml/ Dose) 1 ml Sodium Acetate 30 meq Potassium Chloride 20 meq Calcium Gluconate 1 gm Potassium Phosphate 15 mmol In Amino Acid 5%-D15w 1,000 ml @ 55 mls/hr IV .Q19H7M [facility] Rx#:[id number] Piperacillin-Tazobactam 3 200 100 .375 gm In Sodium Chloride 0.9% 100 ml @ 25 mls/hr IVPB Q8HR [facility] Rx# :[id number] Potassium Chloride 20 meq 100 In Water For Injection 1 100ml.bag @ 50 mls/hr IVPB Q2H [facility] Rx#: [id number] Potassium Chloride 20 meq 100 300 In Water For Injection 1 100ml.bag @ 50 mls/hr IVPB Q2H [facility] Rx#: [id number] Pressure Bag 33 36 15 Intake, IV Titration 675 835.916 317.644 Amount Diltiazem 125 mg In 125 93.333 Sodium Chloride 0.9% 100 ml @ 5 MG/HR 5 mls/hr IV .Q24H [facility] Rx#:[id number] Heparin Sod,Pork in 0.45% 250 241.443 124.311 NaCl 25,000 unit In 0.45 % NaCl 1 250ml.bag @ 6.1 UNITS/KG/HR 9.998 mls/hr IV .Q24H [facility] Rx#: [id number] Propofol 1,000 mg In 300 594.473 100 Empty Bag 1 bag @ Titrate IV .Q0M [facility] Rx#: [id number] Output: Gastric Drainage 300 125 140 Drainage 350 550 260 Abdomen 350 450 250 Medial Abdomen 100 10 Urine 2610 2290 1560 Other: Voiding Method Indwelling Catheter Indwelling Catheter Indwelling Catheter ABP, PAP, CO, CI - Last Documented Arterial Blood Pressure 112/52 - Exam Review of Systems ROS unobtainable: due to endotracheal tube Gen: This is a 72-year-old morbidly obese male. He is in the intensive care unit. Patient is intubated and on mechanical ventilation. Patient appears to be comfortable. HEENT: Head is atraumatic, normocephalic. Pupils equal, round. Sclerae is anicteric. NG tube in place to suction. Oral tracheal tube in place. Mucous membranes of the mouth are moist. NECK: Supple. No JVD. No lymphadenopathy. No thyromegaly. LUNGS: Diminished bilaterally with scattered rhonchi and expiratory wheeze. Patient appears comfortable. HEART: Irregular rate and rhythm. Systolic murmur. school lunch monitor atrial fibrillation with rate control. ABDOMEN: Soft. Large. Normal bowel sounds are present. Colostomy in the left upper quadrant with stool output. There is a large mid abdominal incision with wound VAC. CHAVEZ drain. Foster catheter draining clear urine. EXTREMITIES: anasarca and pedal edema. Midline to right upper arm. NEUROLOGICAL: Patient is sedated. - Labs CBC & Chem 7: 09/25/18 04:21 09/25/18 04:17 Labs: Abnormal Lab Results - Last 24 Hours (Table) 09/24/18 09/24/18 09/24/18 Range/Units 13:25 17:29 23:36 RBC (4.30-5.90) m/uL Hgb (13.0-17.5) gm/dL Hct (39.0-53.0) % MCV (80.0-100.0) fL MCH (25.0-35.0) pg MCHC (31.0-37.0) g/dL RDW (11.5-15.5) % Neutrophils # (1.3-7.7) k/uL Lymphocytes # (1.0-4.8) k/uL APTT (22.0-30.0) sec ABG pO2 (83-108) mmHg ABG Total CO2 (19-24) mmol/L ABG O2 Saturation (94-97) % Sodium (137-145) mmol/L Potassium 3.2 L (3.5-5.1) mmol/L Chloride (98-107) mmol/L BUN (9-20) mg/dL Glucose (74-99) mg/dL POC Glucose (mg/dL) 178 H 197 H (75-99) mg/dL Calcium (8.4-10.2) mg/dL Albumin (3.5-5.0) g/dL Triglycerides (<150) mg/dL 09/25/18 09/25/18 09/25/18 Range/Units 04:17 04:17 04:21 RBC 4.01 L (4.30-5.90) m/uL Hgb 7.5 L (13.0-17.5) gm/dL Hct 29.0 L (39.0-53.0) % MCV 72.3 L (80.0-100.0) fL MCH 18.8 L (25.0-35.0) pg MCHC 26.0 L (31.0-37.0) g/dL RDW 19.9 H (11.5-15.5) % Neutrophils # 8.2 H (1.3-7.7) k/uL Lymphocytes # 0.8 L (1.0-4.8) k/uL APTT 41.4 H (22.0-30.0) sec ABG pO2 (83-108) mmHg ABG Total CO2 (19-24) mmol/L ABG O2 Saturation (94-97) % Sodium 146 H (137-145) mmol/L Potassium (3.5-5.1) mmol/L Chloride 114 H (98-107) mmol/L BUN 26 H (9-20) mg/dL Glucose 202 H (74-99) mg/dL POC Glucose (mg/dL) (75-99) mg/dL Calcium 7.3 L (8.4-10.2) mg/dL Albumin 2.3 L (3.5-5.0) g/dL Triglycerides 189 H (<150) mg/dL 09/25/18 09/25/18 09/25/18 Range/Units 05:46 07:13 11:41 RBC (4.30-5.90) m/uL Hgb (13.0-17.5) gm/dL Hct (39.0-53.0) % MCV (80.0-100.0) fL MCH (25.0-35.0) pg MCHC (31.0-37.0) g/dL RDW (11.5-15.5) % Neutrophils # (1.3-7.7) k/uL Lymphocytes # (1.0-4.8) k/uL APTT (22.0-30.0) sec ABG pO2 82 L (83-108) mmHg ABG Total CO2 26 H (19-24) mmol/L ABG O2 Saturation 98.5 H (94-97) % Sodium (137-145) mmol/L Potassium (3.5-5.1) mmol/L Chloride (98-107) mmol/L BUN (9-20) mg/dL Glucose (74-99) mg/dL POC Glucose (mg/dL) 214 H 189 H (75-99) mg/dL Calcium (8.4-10.2) mg/dL Albumin (3.5-5.0) g/dL Triglycerides (<150) mg/dL Microbiology - Last 24 Hours (Table) 09/23/18 19:25 Gram Stain - Final Sputum Sputum Culture - Final 09/24/18 00:40 Blood Culture - Preliminary Blood No Growth after 24 hours 09/23/18 19:05 Gram Stain - Preliminary Edwin-Harris Body Fluid Culture - Preliminary Coagulase Negative Staph Assessment and Plan Plan: 1. Abdominal pain secondary to perforated gastric ulcer, ischemic colon at the splenic flexure with bowel obstruction status post exploratory laparotomy, lysis of adhesions, repair of gastric ulcer, transverse colectomy and takedown of the splenic flexure. Continue fluconazole, Flagyl IV, Zosyn IV. Dr. Benedict consult appreciated. The patient has been seen by ostomy nurse. Anticipate probable trach and PEG tube Saturday. 2. Hypovolemic shock status post IV fluid resuscitation and vasopressors. Patient is currently weaned off vasopressors. 3. Acute on chronic hypoxic respiratory failure secondary to above. Patient is currently intubated and on mechanical ventilation. Patient is managed by Dr. Mendoza. Dr. Mendoza concern for ARDS. 4. Acute kidney injury secondary to shock. Continue IV fluids and monitor closely 5. Lactic acidosis. 6. Paroxysmal atrial fibrillation with A. fib RVR, currently rate controlled. Eliquis is on hold. Patient is status post Kcentra for reversal of eliquis. Patient is status post IV amiodarone and now on Cardizem drip and heparin drip. Cardiology consult appreciated 7. Acute and chronic diastolic heart failure and generalized anasarca. IV Lasix 40 mg every 12 hours. Patient is status post albumin infusion. 8. Severe COPD, stable. 9. Obstructive sleep apnea with CPAP, noncompliance. 10. Mild intermittent asthma, stable. 11. Hyperlipidemia. 12. Gastroesophageal reflux disease and GI prophylaxis. Continue Protonix 40 mg IV daily. 13. Diabetes mellitus type 2 uncontrolled with hyperglycemia secondary to steroids. Continue NovoLog scale every 6 hours. Hold metformin and Januvia. Levemir 6 units daily added. 14. Severe protein calorie malnutrition due to nothing by mouth status. Patient on TPN. Patient was given albumin infusion yesterday. 15. Left atrial appendage thrombus found on MIKE during last admission. 16. Hypernatremia and hyperchloremia. Continue IV fluids of D5 at 75 mL per hour. 17. Adrenal insufficiency secondary to illness. Patient has been started on hydrocortef 50 mg IV every 8 hours. Discharge plan: To be determined. Most likely subacute rehab or [facility]. Impression and plan of care have been directed as dictated by the signing physician. Loreta Medellin nurse practitioner acting as scribe for signing phys ician.
[2018-09-25] MEDS: POTASSIUM CHLORIDE 20 MEQ in WATER FOR INJECTION 1 100ML.BAG IVPB SCH ×2 (16:28→18:51)
[2018-09-25 18:06] LABS: Glucose,Whole Blood 182 mg/dL (75-99)
--- NOTE | 2018-09-25 18:42 | PN ---
PROGRESS NOTE DATE OF SERVICE: 09/25/2018 REASON FOR FOLLOWUP: Abdominal sepsis. INTERVAL HISTORY: The patient is currently afebrile. The patient is hemodynamically stable, not on any pressor support. The patient's FiO2 is currently stable. Tolerating his tube feeds. No other changes per the nursing staff. PHYSICAL EXAMINATION: Blood pressure is 117/72 with a pulse of 90, temperature 98.5. He is 97% on 40% FiO2. General description is an elderly male lying in bed in no distress. RESPIRATORY SYSTEM: Unlabored breathing with decreased breath sounds at the base. No wheeze. HEART: S1, S2. Regular rate and rhythm. ABDOMEN: Soft. Midline incision covered with a wound V.A.C. Did have stools in his colostomy. EXTREMITIES: No edema of feet. LABS: Hemoglobin 7.5, white count 9.4, BUN of 26, creatinine 0.82. DIAGNOSTIC IMPRESSION AND PLAN: Patient with perforated peptic ulcer disease, also with ischemic splenic flexure, status post extensive laparotomy and diverting colostomy. Patient is currently covered with Zosyn and Diflucan; to continue while monitoring clinical course closely. Continue with supportive care. MMODL / IJN: [id number] /
[2018-09-25] MEDS: MVI, ADULT NO.4 WITH VIT K 10 ML, TRACE (CONC-1ML/DOSE) 1 ML, CALCIUM GLUCONATE 1 GM, P... IV SCH ×6 (19:56)
[2018-09-25 23:37] LABS: Glucose,Whole Blood 174 mg/dL (75-99)
[2018-09-26] MEDS ORDERED: Potassium Replacement Protocol 1 EACH MISC MISCELLANE PRN ×2 (00:27→05:54)
[2018-09-26] MEDS: POTASSIUM CHLORIDE 20 MEQ in WATER FOR INJECTION 1 100ML.BAG IVPB SCH ×2 (00:52→02:53)
[2018-09-26] MEDS: DILTIAZEM 125 MG in SODIUM CHLORIDE 0.9% 100 ML IV SCH (02:55)
[2018-09-26] MEDS: IPRATROPIUM-ALBUTEROL 3 ML NEB INHALATION SCH ×6 (03:10→23:10)
[2018-09-26] MEDS: PROPOFOL 1,000 MG in EMPTY BAG 1 BAG IV SCH ×8 (03:58→22:04)
[2018-09-26 04:34] LABS: Anisocytosis Moderate; Basophils % (A) 0 %; Eosinophils # (A) 0.1 k/uL (0-0.7); Eosinophils % (A) 1 %; HCT 29.5 % (39.0-53.0); HGB 7.6 gm/dL (13.0-17.5); Hypochromasia Marked; Lymphocytes # (A) 0.8 k/uL (1.0-4.8); Lymphocytes % (A) 8 %; MCH 17.7 pg (25.0-35.0); MCHC 25.9 g/dL (31.0-37.0); MCV 68.3 fL (80.0-100.0); Mean Platelet Volume 7.5; Microcytosis Marked; Monocytes # (A) 0.3 k/uL (0-1.0); Monocytes % (A) 3 %; Neutrophils # (A) 8.6 k/uL (1.3-7.7); Neutrophils % (A) 88 %; Platelet Count 353 k/uL (150-450); Poikilocytosis Moderate; RBC 4.32 m/uL (4.30-5.90); RDW 21.3 % (11.5-15.5); WBC 9.8 k/uL (3.8-10.6)
[2018-09-26 05:06] LABS: African American GFR (CKD) >90 (>60 ml/min/1.73 sqM); Anion Gap 7 mmol/L; Blood Urea Nitrogen 23 mg/dL (9-20); Calcium 7.4 mg/dL (8.4-10.2); Carbon Dioxide 26 mmol/L (22-30); Chloride 111 mmol/L (98-107); Glucose 187 mg/dL (74-99); Magnesium 1.8 mg/dL (1.6-2.3); Phosphorus 3.5 mg/dL (2.5-4.5); Potassium 3.7 mmol/L (3.5-5.1); Sodium 144 mmol/L (137-145)
[2018-09-26 05:49] LABS: Glucose,Whole Blood 194 mg/dL (75-99)
[2018-09-26] MEDS: INSULIN ASPART (NovoLOG) 100 UNIT/ML VIAL SQ SCH ×4 (05:58→23:58)
[2018-09-26] MEDS: INSULIN DETEMIR (LEVEMIR) 100 UNIT/ML SYR SQ SCH (05:59)
[2018-09-26] MEDS: POTASSIUM CHLORIDE 10 MEQ in WATER FOR INJECTION 1 100ML.BAG IVPB SCH ×4 (06:08→20:39)
[2018-09-26] MEDS ORDERED: Magnesium Replacement Protocol 1 EACH MISC MISCELLANE PRN (06:29)
[2018-09-26] MEDS: MAGNESIUM SULFATE-D5W PMX 1 GM in DEXTROSE/WATER 1 100ML.BAG IVPB SCH ×2 (06:38→08:44)
[2018-09-26 07:45] LABS: ABG Base Excess 1.2 mmol/L; ABG HCO3 25 mmol/L (21-25); ABG Oxygen Saturation 95.9 % (94-97); ABG PCO2 37 mmHg (35-45); ABG PH 7.45 (7.35-7.45); ABG TCO2 26 mmol/L (19-24); Allen Test Performed? Yes
[2018-09-26 07:47] LABS: ABG PO2 59 mmHg (83-108)
--- NOTE | 2018-09-26 08:18 | XR ---
EXAMINATION TYPE: XR chest 1V portable DATE OF EXAM: 09/26/2018 COMPARISON: 09/25/2018 HISTORY: Respiratory difficulty TECHNIQUE: Single frontal view of the chest is obtained. FINDINGS: Central line, ET tube, NG tube stable. Diffuse bilateral consolidation and pleural effusio n with interstitial pattern stable. No pneumothorax. Heart size stable. IMPRESSION: Diffuse pleural-parenchymal changes are stable correlate for pneumonia versus CHF
[2018-09-26] MEDS: PANTOPRAZOLE 40 MG/10 ML VIAL IVP SCH (08:45)
[2018-09-26] MEDS: HYDROCORTISONE SUCCINATE 100 MG/2 ML VIAL IV SCH ×2 (08:45→20:39)
[2018-09-26] MEDS: FLUCONAZOLE IN NACL,ISO-OSM 200 MG in SALINE 1 100ML.BAG IVPB SCH (08:46)
[2018-09-26] MEDS: FUROSEMIDE 10 MG/ML 4 ML VIAL IV SCH ×3 (08:46→23:58)
[2018-09-26] MEDS: PIPERACILLIN-TAZOBACTAM 3.375 GM in SODIUM CHLORIDE 0.9% 100 ML IVPB SCH ×3 (08:46→23:57)
[2018-09-26] MEDS: CHLORHEXIDINE GLUCONATE 15 ML CUP MUCOUS MEM SCH ×2 (08:46→20:39)
--- NOTE | 2018-09-26 10:22 | P.PN ---
Subjective Progress Note Date: 09/26/18 CHIEF COMPLAINT: abdominal pain HISTORY OF PRESENT ILLNESS: Patient s/p exploratory laparotomy, lysis of adhesions, decompression of colon and small bowel, transverse colectomy with takedown of splenic flexure, and repair of gastric ulcer with Dr. De Leon secondary to pneumoperitoneum, perforated gastric ulcer, ischemic colon at splenic flexure, and bowel obstruction. POD #10. The patient remains intubated on mechanical ventilation in the intensive care unit. Weaning attempts have been unsuccessful. Patient remains on FiO2 of 40%. PHYSICAL EXAM: VITAL SIGNS: Reviewed GENERAL: Well-developed in no acute distress. Patient sedated on mechanical ventilation HEENT: ET tube noted. NG to LIS. No sclera icterus. Extraocular movements grossly intact. Moist buccal mucosa. Head is atraumatic, normocephalic. No nasal drainage. NECK: Supple without lymphadenopathy. CHEST: Non-labored respirations and equal bilateral excursions-remains on ventilator. CARDIOVASCULAR: Irregular rhythm. Palpable 2+ radial pulses. ABDOMEN: Abdomen nondistended, but obese. Wound vac to abdomen. CHAVEZ drain with serous drainage-connected to suction. Left-sided colostomy with stool present. Ostomy pink/red. MUSCULOSKELETAL: No clubbing or cyanosis. Generalized edema-improving NEUROLOGIC: Patient sedated on mechanical ventilation PSYCH: Patient sedated on mechanical ventilation SKIN: Well perfused. Good skin turgor. ASSESSMENT: 1. Abdominal pain 2. Pneumoperitoneum 3. S/P exploratory laparotomy, lysis of adhesions, decompression of colon and small bowel, transverse colectomy with takedown of splenic flexure, and repair of gastric ulcer secondary to pneumoperitoneum, perforated gastric ulcer, ischemic colon at splenic flexure, and bowel obstruction 4. Septic shock, present on admission secondary to above 5. History of atrial fibrillation, on long-term anticoagulation with Eliquis 6. History of bowel obstruction 7. History of laparoscopic Bruce fundoplication 8. History of hiatal hernia repair with mesh PLAN: 1. Continue ventilator management per Dr. Mendoza. 2. Continue TPN 3. Continue wound vac 4. Ostomy resource RN on consult 5. Continue antibiotics. Dr. Benedict on consult. 6. Anticoagulation per cardiology. Heparin drip on hold for OR. 7. Patient scheduled for tracheostomy and PEG tube placement today with Dr. De Leon Nurse practitioner note has been reviewed by physician. Signing provider agrees with the documented findings, assessment, and plan of care. Objective - Vital Signs Vital signs: Vital Signs Temp 98.8 F 09/26/18 04:00 Pulse 96 09/26/18 08:42 Resp 26 H 09/26/18 07:00 BP 104/69 09/26/18 07:00 Pulse Ox 96 09/26/18 07:00 Intake & Output 09/25/18 09/26/18 09/26/18 18:59 06:59 18:59 Intake Total 3267.917 2717.454 930.794 Output Total 3420 1965 1100 Balance -152.083 752.454 -169.206 Weight 148 kg Intake: IV 1596 1815 832 Dextrose 5% in Water 1, 900 825 200 000 ml @ 25 mls/hr IV . Q24H [facility] Rx#:[id number] Fluconazole in NaCl,Iso- 100 Osm 200 mg In Saline 1 100ml.bag @ 100 mls/hr IVPB DAILY [facility] Rx#: [id number] Magnesium Sulfate-D5w Pmx 200 1 gm In Dextrose/Water 1 100ml.bag @ 100 mls/hr IVPB Q1H [facility] Rx#: [id number] Mvi, Adult No.4 with Vit 605 220 K 10 ml Trace (Conc-1Ml/ Dose) 1 ml Calcium Gluconate 1 gm Potassium Acetate 40 meq Potassium Phosphate 15 mmol In Amino Acid 5%-D15w 1,000 ml @ 55 mls/hr IV .Q19H2M [facility] Rx#:[id number] Mvi, Adult No.4 with Vit 660 55 K 10 ml Trace (Conc-1Ml/ Dose) 1 ml Sodium Acetate 30 meq Potassium Chloride 20 meq Calcium Gluconate 1 gm Potassium Phosphate 15 mmol In Amino Acid 5%-D15w 1,000 ml @ 55 mls/hr IV .Q19H7M [facility] Rx#:[id number] Piperacillin-Tazobactam 3 100 .375 gm In Sodium Chloride 0.9% 100 ml @ 25 mls/hr IVPB Q8HR [facility] Rx# :[id number] Potassium Chloride 10 meq 100 In Water For Injection 1 100ml.bag @ 100 mls/hr IVPB Q1H [facility] Rx#: [id number] Potassium Chloride 20 meq 200 In Water For Injection 1 100ml.bag @ 50 mls/hr IVPB Q2H [facility] Rx#: [id number] Pressure Bag 36 30 12 Intake, IV Titration 1671.917 899.454 98.794 Amount Diltiazem 125 mg In 93.333 125 Sodium Chloride 0.9% 100 ml @ 5 MG/HR 5 mls/hr IV .Q24H [facility] Rx#:[id number] Heparin Sod,Pork in 0.45% 250.000 442.979 NaCl 25,000 unit In 0.45 % NaCl 1 250ml.bag @ 6.1 UNITS/KG/HR 9.998 mls/hr IV .Q24H [facility] Rx#: [id number] Mvi, Adult No.4 with Vit 1046 K 10 ml Trace (Conc-1Ml/ Dose) 1 ml Calcium Gluconate 1 gm Potassium Acetate 40 meq Potassium Phosphate 15 mmol In Amino Acid 5%-D15w 1,000 ml @ 55 mls/hr IV .Q19H2M [facility] Rx#:[id number] Propofol 1,000 mg In 282.584 331.475 98.794 Empty Bag 1 bag @ Titrate IV .Q0M [facility] Rx#: [id number] Lipid 3 Pressure Bag 3 Output: Gastric Drainage 290 300 Drainage 560 250 Abdomen 550 200 Medial Abdomen 10 50 Urine 2420 1665 850 Stool 150 Other: Voiding Method Indwelling Catheter Indwelling Catheter ABP, PAP, CO, CI - Last Documented Arterial Blood Pressure 112/52 - Labs CBC & Chem 7: 09/26/18 04:23 09/26/18 04:23 Labs: Abnormal Lab Results - Last 24 Hours (Table) 09/25/18 09/25/18 09/25/18 Range/Units 11:41 14:00 14:00 Hgb (13.0-17.5) gm/dL Hct (39.0-53.0) % MCV (80.0-100.0) fL MCH (25.0-35.0) pg MCHC (31.0-37.0) g/dL RDW (11.5-15.5) % Neutrophils # (1.3-7.7) k/uL Lymphocytes # (1.0-4.8) k/uL APTT 54.0 H (22.0-30.0) sec ABG pO2 (83-108) mmHg ABG Total CO2 (19-24) mmol/L Potassium 3.3 L (3.5-5.1) mmol/L Chloride (98-107) mmol/L BUN (9-20) mg/dL Glucose (74-99) mg/dL POC Glucose (mg/dL) 189 H (75-99) mg/dL Calcium (8.4-10.2) mg/dL 09/25/18 09/25/18 09/25/18 Range/Units 18:04 23:29 23:35 Hgb (13.0-17.5) gm/dL Hct (39.0-53.0) % MCV (80.0-100.0) fL MCH (25.0-35.0) pg MCHC (31.0-37.0) g/dL RDW (11.5-15.5) % Neutrophils # (1.3-7.7) k/uL Lymphocytes # (1.0-4.8) k/uL APTT (22.0-30.0) sec ABG pO2 (83-108) mmHg ABG Total CO2 (19-24) mmol/L Potassium 3.3 L (3.5-5.1) mmol/L Chloride (98-107) mmol/L BUN (9-20) mg/dL Glucose (74-99) mg/dL POC Glucose (mg/dL) 182 H 174 H (75-99) mg/dL Calcium (8.4-10.2) mg/dL 09/26/18 09/26/18 09/26/18 Range/Units 04:23 04:23 05:47 Hgb 7.6 L (13.0-17.5) gm/dL Hct 29.5 L (39.0-53.0) % MCV 68.3 L (80.0-100.0) fL MCH 17.7 L (25.0-35.0) pg MCHC 25.9 L (31.0-37.0) g/dL RDW 21.3 H (11.5-15.5) % Neutrophils # 8.6 H (1.3-7.7) k/uL Lymphocytes # 0.8 L (1.0-4.8) k/uL APTT (22.0-30.0) sec ABG pO2 (83-108) mmHg ABG Total CO2 (19-24) mmol/L Potassium (3.5-5.1) mmol/L Chloride 111 H (98-107) mmol/L BUN 23 H (9-20) mg/dL Glucose 187 H (74-99) mg/dL POC Glucose (mg/dL) 194 H (75-99) mg/dL Calcium 7.4 L (8.4-10.2) mg/dL 09/26/18 09/26/18 Range/Units 06:57 07:33 Hgb (13.0-17.5) gm/dL Hct (39.0-53.0) % MCV (80.0-100.0) fL MCH (25.0-35.0) pg MCHC (31.0-37.0) g/dL RDW (11.5-15.5) % Neutrophils # (1.3-7.7) k/uL Lymphocytes # (1.0-4.8) k/uL APTT 57.9 H (22.0-30.0) sec ABG pO2 59 L* (83-108) mmHg ABG Total CO2 26 H (19-24) mmol/L Potassium (3.5-5.1) mmol/L Chloride (98-107) mmol/L BUN (9-20) mg/dL Glucose (74-99) mg/dL POC Glucose (mg/dL) (75-99) mg/dL Calcium (8.4-10.2) mg/dL Microbiology - Last 24 Hours (Table) 09/24/18 00:40 Blood Culture - Preliminary Blood No Growth after 48 hours 09/23/18 19:05 Gram Stain - Preliminary Edwin-Harris Body Fluid Culture - Preliminary Staphylococcus epidermidis Gram Neg Bacilli 09/23/18 19:25 Gram Stain - Final Sputum Sputum Culture - Final Assessment and Plan (1) Acute abdomen Current Visit: Yes Status: Acute Code(s): R10.0 - ACUTE ABDOMEN SNOMED Code(s): 9363555 (2) A-fib Current Visit: No Status: Acute Priority: High Code(s): I48.91 - UNSPECIFIED ATRIAL FIBRILLATION SNOMED Code(s): 72250401 (3) Abdominal pain Current Visit: No Status: Acute Code(s): R10.9 - UNSPECIFIED ABDOMINAL PAIN SNOMED Code(s): 03804138 (4) S/P exploratory laparotomy Current Visit: No Status: Acute Code(s): Z98.89 - OTHER SPECIFIED POSTPROCEDURAL STATES * DO NOT USE * SNOMED Code(s): 731408017
[2018-09-26 12:00] LABS: Glucose,Whole Blood 215 mg/dL (75-99)
--- NOTE | 2018-09-26 12:22 | P.PN ---
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 The patient presented yesterday to the emergency department with extreme abdominal pain. The patient was apparently a constipated for a week and he was doing enemas at home. He ultimately felt a pop in the lower portion of his abdomen on the day of the presentation and he came in with severe abdominal pain. He was having emesis. CAT scan of the abdomen was done in the emergency department the patient was found to have no apparent 20. The patient had abdominal distention and his abdominal size was twice the normal. His blood pressure was in the low 90s. He was tachycardic with a heart rate in the 1:30. He was given IV fluids. He was given IV Zosyn. Blood cultures were sent. He was seen by general surgery and the patient was taken to the operating room, and the patient was found to have perforated gastric ulcer, ischemic colon at the site of the splenic flexure of bowel obstruction. The patient underwent expiratory laparotomy, lysis of adhesions, decompression of the colon and small bowel, transverse colectomy and takedown of the splenic flexure and repair of the gastric ulcer. Estimated blood loss is only 100 mL. The patient overnight was brought into the intensive care unit. The patient was resuscitated aggressively with IV fluids. He was given colloids and crystalloids. He is given 8 L of IV fluids. He was started on pressors and currently norepinephrine infusion is running at 62 g per minute. The patient was also started on physiologic dose vasopressin at 0.03 units per minute. Currently is on propofol at 14 mics for sedation. He is receiving normal saline at the rate of 150 mL an hour. Urine output is in order of 20-30 mL an hour. He is warm. His temperature was 100.5. He is on a mechanical ventilator. He is on assist-control mode of ventilation with a tidal volume of 550 at the rate of 26 with an FiO2 of 80% and a PEEP of 5. Blood gases from this morning shows a pH of 7.315 with a pCO2 of 40 and pO2 of 134. His echocardiogram from previous admissions showed an ejection fraction of 55-60%. He had a preserved LV function. No significant valvular abnormalities. Pulmonary to pressure estimated to be 44. His cardiac rhythm is currently sinus. The patient has a CHAVEZ drain in his abdomen and this is on the r ight side and output is around 80-90 mL of serous material. He also has a colostomy and the site is nonfunctioning it seems to be viable at this point. Note that the patient was in the hospital and he was discharged home on 09/12/2018 after being treated for a flutter/failure with rapid ventricular response and shortness of breath and acute diastolic heart failure. Upon discharge, the patient was started on amiodarone thousand milligrams twice a day, Eliquis, Aldactone, and he was given Augmentin on outpatient basis and a prednisone burst taper. He was discharged home on a 40 mg of prednisone. On today's evaluation of 09/18/2018, the patient is postop day #2. The patient is still sedated with propofol at 35 g per KG per minute. The patient is was sedated and calm and comfortable on a mechanical ventilator essentially on the same vent setting with a tidal volume of 550 and FiO2 of 50% with a PEEP of 5 and a respiratory rate of 26. The morning blood gases showed a pH of 7.36 with a pCO2 of 33 and pO2 of 109 and this was done and FiO2 of 50%. Chest x-ray showing cardiomegaly and some mild pulmonary vascular congestion. ET tube is in a good location. The patient has no significant rest or secretions. Hemodynamically, the patient has been aggressively resuscitated IV fluids. The patient is currently on normal saline the rate of 150 mL an hour. The patient is producing more than 50 mL an hour of urine output. The patient is still requiring pressors. The patient is on physiologic dose vasopressin. The patient is also on norepinephrine infusion which is currently running at 21 g per minute. The patient is afebrile. The patient is nothing by mouth. The patient has bowel sounds and the patient has also has a colostomy in place. NG tube is in place output has been around 200 mL over the past 8 hours. Earlier this morning, the patient was seen to be in tachycardia. A 12-lead EKG was done and the rhythm is essentially undetermined. This is most likely supraventricular rhythm, A. fib versus flutter. SCDs felt to be less likely. A. fib is favored nontender the patient has had previous history of atrial fibrillation. This has not affected the patient's overall hemodynamics and blood pressure control. The white cell count is at 9.6. Hemoglobin was 8.5. The patient continues to be in acute kidney failure. Creatinine is up to 1.80 is stable compared to yesterday. On today's evaluation of 09/19/2018 the patient is postop day #3. On today's evaluation that has been further progress and the patient's blood pressure. Currently is only on 5 mics of norepinephrine infusion the patient is also on vasopressin physiologic dose. There has been considerable improvement in the pressor requirements over the past 24-48 hours. He is still producing more than 100 mL of urine output. Afebrile. Still intubated on a mechanical ventilator. Vent settings are essentially unchanged compared to yesterday with a tidal volume of 550 FiO2 of 50% with a PEEP of 5 and the respiratory rate of 26. Blood gases from today showed a pH of 7.36 with a pCO2 of 35 and pO2 of 121 and this was done and FiO2 of 50%. The patient is was arrested on propofol which is running at 40 mics. Chest x-ray from today shows bilateral pleural effusion and ET tube is in a good location. The patient has positive bowel sounds. The patient is producing some stool activity in his colostomy bag. The CHAVEZ drain output is minimal. NG tube output is minimal. The patient is still on broad- spectrum antibiotic coverage. Cultures from the abdominal wound have been all negative. White cell count is not elevated. Hemoglobin stable at 7.8. Family is at the bedside. As far as atrial fibrillation, the patient was bolused with amiodarone and following that the patient was maintained at a lower heart rate yet still in atrial fibrillation. No anticoagulants for now. The function is improving and the creatinine is down to 1.2. On 09/20/2018 patient is postop day #4. The patient is sedated this morning. The patient is off pressors and norepinephrine infusion and vasopressin has been discontinued. Urine output is excellent. We have noted increased in output from the CHAVEZ drain which has put out approximately 400 mL over the past few hours. Meanwhile the, surgical wound site is dry clean and intact. The patient has a functional colostomy and there is stool output in the colostomy bag. The patient remains on a mechanical ventilator. Vent settings are essentially unchanged. The patient had a blood gases this morning that showed a pH of 7.4 with a pCO2 of 34 and pO2 of 76. The patient had a chest x-ray that showed vascular congestion and edema and bilateral pleural effusions. The patient is on TPN for nutritional support. IV fluids have been cut down to KVO. He is on propofol for sedation. Elisha output is minimal at this point in time. No fever. No chills. Sedation holiday was given yesterday at the patient was not ready for any weaning. The same will be done today. Meanwhile, the patient is still in atrial fibrillation. The patient was taken off the amiodarone drip. The patient was started in IV heparin. Cardizem drip will be started today for rate control. The patient is afebrile. Renal function is normalized and the creatinine is down to 1.02. On 09/21/2018 patient is postop day #5. Sedation holiday was given. The patient woke up appropriately. Unable to give me good weaning parameters. Given a showed spontaneous breathing trial and he feels that the patient became tachypneic tachycardic and the trial was discontinued. He is back on assist control mode of ventilation. Chest x-ray showing pulmonary vessel congestion/edema. The patient is a negative fluid balance of 1.3 L and the patient is producing excellent urine output. His dose of Lasix will be given to augment the urine output and establish a better negative fluid balance over the next 24 hours. Otherwise, he started on TPN for nutritional support. He is on a Cardizem drip for rate control. He is in atrial fibrillation. He is on IV heparin. He is afebrile. He is on broad-spectrum antibiotics. The ostomy is viable and there is stool within the bag. Discussed the case with general surgery and no plans for feeding at this point in time. A barium swallow needs to be done later stage to make sure there is no bowel leak. Reevaluated today on 09/22/2018, patient remains on mechanical ventilation, remains on multiple meds, but not requiring any pressors. He is on vent settings assist-control mode of mechanical ventilation with tidal volume of 550 rate of 26, FiO2 40% PEEP of 5. Patient remains on Cardizem, on TPN, heparin, Zosyn and Diflucan and on propofol drip. Weaning trial failed yesterday, and the same happened today, patient was taken off propofol, and after few hours he became extremely agitated, tachypneic, tachycardic, and had to place him back on propofol. However his mental status was noted to be intact, and he was appropriate off propofol. I have a feeling that the patient may eventually require tracheostomy if he continues to fail daily weaning trials. Labs were reviewed his sodium is elevated chloride is 122, hence his IV fluid will be changed to D5W. His ABG showed a pO2 of 89 pCO2 of 35 pH of 7.43. CBC is relatively unremarkable WBC count is 8.5 hemoglobin is 7.8. His ostomy is viable. Patient remains on TPN. Reevaluated today on 09/23/2018, remains in the ICU, mechanically ventilated, not requiring any pressors, ventilator settings are basically the same as noted yesterday, tidal volume of 550 assist-control rate of 26 FiO2 of 40% PEEP of 5. Remains on antibiotics, heparin, TPN, Cardizem remains on propofol, chest x-ray is showing worsening airspace disease especially in the left lung, ultrasound of the chest did not reveal significant pleural effusion for thoracentesis. Nanda ent would have sedation interruption today, however based on the chest x-ray appearance, I have a feeling the patient will not tolerate any weaning. I am a bit concerned that the patient may be developing or having evolving ARDS picture and that is yet to be determined. In the meantime I will continue patient on diuretics, his urine output is excellent about 150 mL per hour. I kept him on D5W at 75 mL per hour. And I have recommended CVP monitoring. CBC today showed WBC count of 9.4 hemoglobin of 7.6. ABG this morning showed a pO2 of 71 pCO2 of 40 0 pH of 7.40 sodium remains elevated at 151, renal profile is relatively normal otherwise. Family is at bedside, and updated on his condition Reevaluated today on 09/24/2018, patient remains mechanically ventilated, in the ICU, his ventilator settings are tidal volume of 550 FiO2 of 50% rate of 26 and PEEP of 5.Remains on propofol, Cardizem drip, heparin drip, not requiring any pressors. Chest x-ray is showing evidence of pulmonary edema which again could be cardiogenic or noncardiogenic in nature, there is also some atelectasis at the bases. Pneumonia is not entirely excluded. Chest x-ray however is improving compared to yesterday's chest x-ray, ABG showed a pO2 of 79 pCO2 of 39 pH of 7.43. WBC count is 7.4 hemoglobin is 8.1. Renal profile seems to be normal. Potassium is a bit low at 3.2 being addressed. Patient remains on TPN, family updated on his condition today Reevaluated today on 09/25/2018, remains in the ICU, remains on mechanical ventilation, and his ventilator settings are basically the same as noted above. No change in the ventilator settings, FiO2 is down to 40%. ABG this morning showed a pO2 of 82 pCO2 of 37 pH of 7.45. CBC is relatively normal hemoglobin is 7.5, sodium is significantly improved down to 146 renal profile is normal with a BUN of 26 creatinine 0.82. Chest x-ray is suggestive of bilateral airspace disease, which is difficult to determine whether it is diastolic congestive heart failure or pneumonia or noncardiogenic pulmonary edema but nonetheless airspace disease seems to be improving. I believe it is likely a combination of pneumonia and noncardiogenic pulmonary edema. Patient was given a trial of weaning, however was poorly tolerated, he was awakened, seems to be quite weak, followed simple instructions, will keep him scheduled for tracheostomy tomorrow. Patient was reevaluated today on 09/26/2018, remains intubated, mechanically ventilated, his ventilator settings are assist control rate of 26, FiO2 is up to 45%, PEEP is 5. Antiembolic is 550. ABG showed a pO2 of 59 and I was on 40% FiO2 pCO2 was 37 pH of 7.45. Chest x-ray is showing worsening airspace disease involving the left lung, possibly cardiogenic or noncardiogenic pulmonary edema, but his Lasix dose was increased. And his IV fluid was cut down. Sodium seems to be much better and improved. Hemoglobin remains at 7.6. No need for any blood transfusion at this point. Electrodes are normal renal profile is normal. Patient remains on propofol, his also on Cardizem, however heparin is presently on hold for his tracheostomy and PEG tube which is scheduled for today. Remains on TPN. And remains on antibiotics and on antifungal therapy. Objective - Vital Signs Vital signs: Vital Signs Temp 98.8 F 09/26/18 04:00 Pulse 90 09/26/18 11:53 Resp 29 H 09/26/18 11:00 BP 120/85 09/26/18 11:00 Pulse Ox 95 09/26/18 11:00 Intake & Output 09/25/18 09/26/18 09/26/18 18:59 06:59 18:59 Intake Total 3267.917 2717.454 1096.794 Output Total 3420 1965 2350 Balance -152.083 752.454 -1253.206 Weight 148 kg Intake: IV 1596 1815 998 Dextrose 5% in Water 1, 900 825 250 000 ml @ 25 mls/hr IV . Q24H [facility] Rx#:[id number] Fluconazole in NaCl,Iso- 100 Osm 200 mg In Saline 1 100ml.bag @ 100 mls/hr IVPB DAILY [facility] Rx#: [id number] Magnesium Sulfate-D5w Pmx 200 1 gm In Dextrose/Water 1 100ml.bag @ 100 mls/hr IVPB Q1H [facility] Rx#: [id number] Mvi, Adult No.4 with Vit 605 330 K 10 ml Trace (Conc-1Ml/ Dose) 1 ml Calcium Gluconate 1 gm Potassium Acetate 40 meq Potassium Phosphate 15 mmol In Amino Acid 5%-D15w 1,000 ml @ 55 mls/hr IV .Q19H2M [facility] Rx#:[id number] Mvi, Adult No.4 with Vit 660 55 K 10 ml Trace (Conc-1Ml/ Dose) 1 ml Sodium Acetate 30 meq Potassium Chloride 20 meq Calcium Gluconate 1 gm Potassium Phosphate 15 mmol In Amino Acid 5%-D15w 1,000 ml @ 55 mls/hr IV .Q19H7M [facility] Rx#:[id number] Piperacillin-Tazobactam 3 100 .375 gm In Sodium Chloride 0.9% 100 ml @ 25 mls/hr IVPB Q8HR [facility] Rx# :[id number] Potassium Chloride 10 meq 100 In Water For Injection 1 100ml.bag @ 100 mls/hr IVPB Q1H [facility] Rx#: [id number] Potassium Chloride 20 meq 200 In Water For Injection 1 100ml.bag @ 50 mls/hr IVPB Q2H [facility] Rx#: [id number] Pressure Bag 36 30 18 Intake, IV Titration 1671.917 899.454 98.794 Amount Diltiazem 125 mg In 93.333 125 Sodium Chloride 0.9% 100 ml @ 5 MG/HR 5 mls/hr IV .Q24H [facility] Rx#:[id number] Heparin Sod,Pork in 0.45% 250.000 442.979 NaCl 25,000 unit In 0.45 % NaCl 1 250ml.bag @ 6.1 UNITS/KG/HR 9.998 mls/hr IV .Q24H [facility] Rx#: [id number] Mvi, Adult No.4 with Vit 1046 K 10 ml Trace (Conc-1Ml/ Dose) 1 ml Calcium Gluconate 1 gm Potassium Acetate 40 meq Potassium Phosphate 15 mmol In Amino Acid 5%-D15w 1,000 ml @ 55 mls/hr IV .Q19H2M [facility] Rx#:[id number] Propofol 1,000 mg In 282.584 331.475 98.794 Empty Bag 1 bag @ Titrate IV .Q0M [facility] Rx#: [id number] Lipid 3 Pressure Bag 3 Output: Gastric Drainage 290 300 Drainage 560 250 Abdomen 550 200 Medial Abdomen 10 50 Urine 2420 1665 1800 Stool 150 300 Other: Voiding Method Indwelling Catheter Indwelling Catheter Indwelling Catheter ABP, PAP, CO, CI - Last Documented Arterial Blood Pressure 112/52 - Exam Physical Exam: Revealed 72-year-old white male on mechanical ventilation, sedated, no plans to hold propofol at this point since the patient is going for tracheostomy and PEG tube placement today. Head: Atraumatic, normocephalic. HEENT:[Neck is supple.] [No neck masses.] [No thyromegaly.] [No JVD.] Endotracheal tube is intact. Moist mucous membranes noted. Chest: [Symmetrical chest expansion, crackles and rhonchi noted bilaterally Cardiac Exam: [Normal S1 and S2, no S3 gallop, no murmur.] Abdomen: [Postsurgical, Soft, nontender, no megaly, no rebound, no guarding, diminished bowel sounds, colostomy seems to be viable with healthy tissue, and some output noted in the colostomy bag. Abdominal incision is dry and clean. Extremities: [No clubbing, trace of bipedal edema. edema, no cyanosis.] Neurological Exam: Cannot be assessed, fully sedated on propofol today. And no plans to hold it at this point since he is going for tracheostomy. Lymphatics: No lymphadenopathy. Skin: No rashes. Psychiatric: Could not be assessed. - Labs CBC & Chem 7: 09/26/18 04:23 09/26/18 04:23 Labs: Abnormal Lab Results - Last 24 Hours (Table) 09/25/18 09/25/18 09/25/18 Range/Units 14:00 14:00 18:04 Hgb (13.0-17.5) gm/dL Hct (39.0-53.0) % MCV (80.0-100.0) fL MCH (25.0-35.0) pg MCHC (31.0-37.0) g/dL RDW (11.5-15.5) % Neutrophils # (1.3-7.7) k/uL Lymphocytes # (1.0-4.8) k/uL APTT 54.0 H (22.0-30.0) sec ABG pO2 (83-108) mmHg ABG Total CO2 (19-24) mmol/L Potassium 3.3 L (3.5-5.1) mmol/L Chloride (98-107) mmol/L BUN (9-20) mg/dL Glucose (74-99) mg/dL POC Glucose (mg/dL) 182 H (75-99) mg/dL Calcium (8.4-10.2) mg/dL 09/25/18 09/25/18 09/26/18 Range/Units 23:29 23:35 04:23 Hgb (13.0-17.5) gm/dL Hct (39.0-53.0) % MCV (80.0-100.0) fL MCH (25.0-35.0) pg MCHC (31.0-37.0) g/dL RDW (11.5-15.5) % Neutrophils # (1.3-7.7) k/uL Lymphocytes # (1.0-4.8) k/uL APTT (22.0-30.0) sec ABG pO2 (83-108) mmHg ABG Total CO2 (19-24) mmol/L Potassium 3.3 L (3.5-5.1) mmol/L Chloride 111 H (98-107) mmol/L BUN 23 H (9-20) mg/dL Glucose 187 H (74-99) mg/dL POC Glucose (mg/dL) 174 H (75-99) mg/dL Calcium 7.4 L (8.4-10.2) mg/dL 09/26/18 09/26/18 09/26/18 Range/Units 04:23 05:47 06:57 Hgb 7.6 L (13.0-17.5) gm/dL Hct 29.5 L (39.0-53.0) % MCV 68.3 L (80.0-100.0) fL MCH 17.7 L (25.0-35.0) pg MCHC 25.9 L (31.0-37.0) g/dL RDW 21.3 H (11.5-15.5) % Neutrophils # 8.6 H (1.3-7.7) k/uL Lymphocytes # 0.8 L (1.0-4.8) k/uL APTT 57.9 H (22.0-30.0) sec ABG pO2 (83-108) mmHg ABG Total CO2 (19-24) mmol/L Potassium (3.5-5.1) mmol/L Chloride (98-107) mmol/L BUN (9-20) mg/dL Glucose (74-99) mg/dL POC Glucose (mg/dL) 194 H (75-99) mg/dL Calcium (8.4-10.2) mg/dL 09/26/18 09/26/18 Range/Units 07:33 11:58 Hgb (13.0-17.5) gm/dL Hct (39.0-53.0) % MCV (80.0-100.0) fL MCH (25.0-35.0) pg MCHC (31.0-37.0) g/dL RDW (11.5-15.5) % Neutrophils # (1.3-7.7) k/uL Lymphocytes # (1.0-4.8) k/uL APTT (22.0-30.0) sec ABG pO2 59 L* (83-108) mmHg ABG Total CO2 26 H (19-24) mmol/L Potassium (3.5-5.1) mmol/L Chloride (98-107) mmol/L BUN (9-20) mg/dL Glucose (74-99) mg/dL POC Glucose (mg/dL) 215 H (75-99) mg/dL Calcium (8.4-10.2) mg/dL Microbiology - Last 24 Hours (Table) 09/24/18 00:40 Blood Culture - Preliminary Blood No Growth after 48 hours 09/23/18 19:05 Gram Stain - Preliminary Edwin-Harris Body Fluid Culture - Preliminary Staphylococcus epidermidis Gram Neg Bacilli 09/23/18 19:25 Gram Stain - Final Sputum Sputum Culture - Final Assessment and Plan Assessment: 1 perforated gastric ulcer/ischemic colon at the level of splenic fracture with bowel obstruction. Status post exploratory laparotomy, lysis of adhesions, repair of a gastric ulcer, transverse colectomy postoperative day #10 2 septic shock secondary to abdominal sepsis, recovered. 3 acute hypoxic respiratory failure secondary to septic shock and abdominal sepsis. 4 acute kidney injury secondary to above, recovered 5 mild lactic acidosis, resolved 6 history of paroxysmal atrial fibrillation with a recent admission to the hospital because of A. fib/flutter with RVR current rhythm is sinus. Remains on heparin and Cardizem. 7 COPD, presently inactive. 8 bronchial asthma presently inactive 9 suspect acute diastolic heart failure, improving with diuretics, however on today's chest x-ray there is slight worsening hence I recommended increasing the Lasix dose, and cutting down on IV fluid. 10 obstructive sleep apnea noncompliant with CPAP therapy 11 diabetes mellitus type 2, on insulin protocol. 12 chronic hypoxic respiratory failure with an oxygen at 2 L per minute nasal cannula on outpatient basis 13 suspect some component of critical illness polyneuropathy. Patient seems to be quite weak. 14 failure to wean from mechanical ventilation, and the failure is multifactorial. Most related to his sepsis, septic shock, pulmonary edema, and critical illness polyneuropathy. As well as underlying COPD. Recommendation: Continue ventilatory support Continue antibiotics, empirically. Continue GI and DVT prophylaxis Continue diuretics, dose of Lasix was increased to 40 mg IV push every 8 hours. Continue D5 W however cut down to 25 mL per hour. Continue TPN Continue to monitor daily electrolytes Continue daily interruption of sedation and mental assessment. Patient is scheduled to undergo tracheostomy and PEG tube placement today. Patient is a failure to wean. Family was updated on his condition, will proceed with tracheostomy and PEG tube placement today, and assess weaning trials again tomorrow. Prognosis remains definitely guarded. Patient remains critically ill. Critical care time is 35 minutes. Time with Patient: Greater than 30
[2018-09-26] MEDS: SODIUM CHLORIDE 0.9% 1,000 ML IV SCH (12:40)
[2018-09-26] MEDS: DEXTROSE 5% IN WATER 1,000 ML IV SCH (12:55)
--- NOTE | 2018-09-26 13:30 | P.PN ---
Subjective Progress Note Date: 09/26/18 This is a 72-year-old male patient of Dr. Cevallos with past history of chronic hypoxic respiratory failure on home O2 obstructive sleep apnea on CPAP, paroxysmal atrial fibrillation, chronic diastolic heart failure, severe COPD, morbid obesity with BMI of 47, hypertension hypertensive cardiovascular disease, mild intermittent asthma, hyperlipidemia, gastroesophageal reflux disease, diabetes mellitus type 2, cellulitis of the abdominal wall. Patient was recently hospitalized and discharged home on September 12 and treated for acute diastolic heart failure, atrial flutter/atrial fibrillation with rapid ventricular response status post MIKE which found a small atrial appendage thrombus. The patient was stabilized and discharged home in stable condition and had been started on amiodarone, eliquis, Aldactone, prednisone and Augmentin. Patient presented to [facility] emergency center for evaluation. He was afebrile, heart rate 130s, blood pressure 119/79, pulse ox 95%. White count was 5.9, hemoglobin 10.6, platelet count 4-72. Sodium 133, potassium 5.4, chloride 96, CO2 20, BUN 36 and creatinine 1.6, blood sugar 178. CAT scan of the abdomen and pelvis revealed pneumoperitoneum. Bowel distention. Bowel ischemia not excluded. No clear obstruction. Findings may be due to ileus. Patient was provided IV fluids, pain medication and Zosyn patient was seen by Dr. De Leon in the emergency center and taken to the OR found to have a perforated gastric ulcer, ischemic colon at the site of splenic flexure of the bowel obstruction. Patient underwent exploratory laparotomy, lysis of adhesions, decompression of the colon and small bowel, transverse colectomy and takedown of splenic flexure and repair of a gastric ulcer. Patient was then transferred to the intensive care unit and followed by Dr. Red. He is status post greater than 8 L of IV fluid and on norepinephrine and subsequent started on vasopressin. Urine output has been marginal patient remains intubated and on mechanical ventilation with tidal volume 550, FiO2 of 50% and PEEP of 5. The patient is on sedation. 09/18: Patient remains in intensive care unit intubated and on mechanical vent ilation with tidal volume 550, FiO2 50, PEEP 5. NG tube with black drainage. He is on 22 mics of levo fed and 0.03 vasopressin. Patient was started on amiodarone due to continued A. fib with RVR. Heart rate is in the 140s, blood pressure systolic 99. A.m. lab work white count 9.6, hemoglobin 8.5, platelet count 368. Sodium 136, potassium 4.9, chloride 108, CO2 18, BUN 39 creatinine 1.81. Blood sugars are running between 141 and 161. Urine culture is in progress and blood culture is no growth at [address] Benedict is recommended continuing Zosyn and Diflucan. Son is at bedside and all questions have been answered. 09/19: Patient remains in the intensive care unit intubated and on mechanical ventilation with tidal volume 550, FiO2 40 and PEEP of 5. Norepinephrine is now down to 5 mics and minimal on vasopressin. Urine output has been more than adequate. He has been afebrile. He is continued on sedation with propofol. A sedation holiday was attempted today but patient became tachypneic. Patient is back on sedation with plan for tomorrow for sedation holiday tomorrow. Patient has had output from colostomy and passing gas and colostomy. Decreased output from NG tube and from CHAVEZ drain. WBC 8.6, hemoglobin 7.8. He has been afebrile, heart rate 99, blood pressure 90/63. TPN has been started. Amiodarone drip to be discontinued. cafeteria monitor is currently A. fib with controlled rate. 09/20 Patient remains in ICU, currently nothing by mouth, CHAVEZ drain has drained ov er 2 L in 24 hours, patient has been off pressors, urine output is normal, patient is still on TPN, patient still has abdominal discomfort, otherwise no chest pain no shortness of breath, no palpitations. Hemoglobin currently at 7.4 from an admitting hemoglobin of 9.4, iron studies to be done, agent has initial myelocytes on admission, creatinine 1.02 from 1.2, surgical incision is dry, there is stool output in the colostomy bag, patient remains on mechanical ventilator, unchanged and settings. Followed closely by pulmonary medicine, Cardizem drip was initiated for atrial fibrillation. Attempt to be made with weaning ventilatory support in a.m. : Postop day #5, he was given sedation holiday today, and was able to follow verbal commands, unable to wean today secondary to parameters from Dr. Red, patient went back to assist control mode of ventilation, Lasix was given 401 dose for CHF, pulmonary edema, blood pressure remains stable, negative balance of 1.3 L, urine output is good, has decreased output on the CHAVEZ drain, small amount of mucus stools today, still diminished bowel sounds currently nothing by mouth, general surgery following closely, 09/22: Patient remains intubated and on mechanical ventilation with tidal volume 550, FiO2 40, PEEP 5. Patient failed weaning attempt this morning. Patient is off vasopressors. He has been afebrile, heart rate 108, blood pressure 116/57. Repeat lab work reveals white count of 8.5, hemoglobin 7.8, platelet count 372. Sodium is 150, potassium 3.9, chloride 122, CO2 20, BUN 29 creatinine 0.92. Blood sugars run between 160 08/[birth year]/1976. Phosphorus 3.4. Magnesium 2.4. Repeat chest x-ray this morning reveals persistent bilateral infiltrate and pleural effusion correlate for heart failure. Patient is maintained on Cardizem drip started over the weekend by fiber technologist. The patient is also continued on TPN. No plan for tube feedings until extubated. Patient does have a liquid stool in ostomy. Urine output has been adequate. CHAVEZ drain remains in place. Consult for cardiology added for atrial fibrillation. 09/23: Repeat chest x-ray shows diffuse pleuroparenchymal changes are stable correlate for diffuse pneumonia versus heart failure. Chest ultrasound shows small left pleural effusion. Cardiology is following for atrial fibrillation. Patient is maintained on IV Cardizem and heparin. Blood pressure is currently controlled. Heart rate is also controlled. The temperature max 100.7, heart rate 98, blood pressure 126/83, pulse ox 93%. We have ordered pancultures including blood culture, sputum, urine, CHAVEZ drain cultures to be obtained. Patient is continued on sedation, intubation and mechanical ventilation. Tidal volume FiO2 550, FiO2 40, PEEP of 5. Repeat lab work reveals white count of 9.4, hemoglobin 7.6, count 372. Sodium 151, potassium 3.4, chloride 119, CO2 24, creatinine 0.94, BUN 27. Blood sugars running between 170 and 182. General surgery planning for wound VAC to the abdominal incision. Patient is now on IV Lasix [address] Mendoza is concern for evolving ARDS. Anticipate probable trach and PEG tube placement by the end of the week. 09/24: The patient remains intubated and on mechanical ventilation with tidal volume 550, FiO2 50%, PEEP 5. Patient remains on sedation. No low-grade fevers this morning. cafeteria monitor is A. fib with controlled rate in the 80s and 90s. Patient remains on Cardizem drip and heparin drip. Blood pressure is currently stable. Lasix is at 40 mg IV every 12 hours with noted decrease edema. Patient has good urine output, positive stool output. Patient has been started on Solu-Cortef. 09/25: Patient remains intubated and on mechanical ventilation with tidal volume 550, FiO2 40, PEEP 5. He is on norepinephrine. Patient is scheduled for trach and PEG tube tomorrow. NG tube is in place to suction. He still noted to have generalized anasarca and now hydrocele on the scrotum. Patient has been afebrile, heart rate 88, blood pressure 117/68. Repeat lab work reveals hemoglobin 7.5, WBC 9.4, hemoglobin 323. Sodium 146, potassium 3.6, chloride 114, CO2 24, BUN 26, creatinine 0.82. Blood sugars in the low 200s. Patient will be started on Levemir 6 units daily. 09/26: Patient remains in the intensive care unit, intubated and on mechanical ventilation with a 5 O2 of 40% and PEEP of 5. He is scheduled for PEG tube and trach placement today. Chest x-ray reveals diffuse pleuroparenchymal changes are stable and correlate for pneumonia versus heart failure. Patient remains on Cardizem and heparin drip for atrial fibrillation, controlled rate. The patient also continued on full, soft and Zosyn. Culture from CHAVEZ drain is positive for Staphylococcus epidermidis and gram-negative bacilli. Lasix currently at 40 mg IV every 8 hours and Solu-Cortef 50 mg IV every 12 hours. A blood sugars remain elevated and Levemir will be increased to 10 units. CHAVEZ drain was scant amount of drainage. Gastric tube remains in place. Wound VAC for abdominal wound. Objective - Vital Signs Vital signs: Vital Signs Temp 98.8 F 09/26/18 04:00 Pulse 96 09/26/18 08:42 Resp 26 H 09/26/18 07:00 BP 104/69 09/26/18 07:00 Pulse Ox 96 09/26/18 07:00 Intake & Output 09/25/18 09/26/18 09/26/18 18:59 06:59 18:59 Intake Total 3267.917 2717.454 930.794 Output Total 3420 1965 1100 Balance -152.083 752.454 -169.206 Weight 148 kg Intake: IV 1596 1815 832 Dextrose 5% in Water 1, 900 825 200 000 ml @ 25 mls/hr IV . Q24H [facility] Rx#:[id number] Fluconazole in NaCl,Iso- 100 Osm 200 mg In Saline 1 100ml.bag @ 100 mls/hr IVPB DAILY [facility] Rx#: [id number] Magnesium Sulfate-D5w Pmx 200 1 gm In Dextrose/Water 1 100ml.bag @ 100 mls/hr IVPB Q1H [facility] Rx#: [id number] Mvi, Adult No.4 with Vit 605 220 K 10 ml Trace (Conc-1Ml/ Dose) 1 ml Calcium Gluconate 1 gm Potassium Acetate 40 meq Potassium Phosphate 15 mmol In Amino Acid 5%-D15w 1,000 ml @ 55 mls/hr IV .Q19H2M [facility] Rx#:[id number] Mvi, Adult No.4 with Vit 660 55 K 10 ml Trace (Conc-1Ml/ Dose) 1 ml Sodium Acetate 30 meq Potassium Chloride 20 meq Calcium Gluconate 1 gm Potassium Phosphate 15 mmol In Amino Acid 5%-D15w 1,000 ml @ 55 mls/hr IV .Q19H7M [facility] Rx#:[id number] Piperacillin-Tazobactam 3 100 .375 gm In Sodium Chloride 0.9% 100 ml @ 25 mls/hr IVPB Q8HR [facility] Rx# :[id number] Potassium Chloride 10 meq 100 In Water For Injection 1 100ml.bag @ 100 mls/hr IVPB Q1H [facility] Rx#: [id number] Potassium Chloride 20 meq 200 In Water For Injection 1 100ml.bag @ 50 mls/hr IVPB Q2H [facility] Rx#: [id number] Pressure Bag 36 30 12 Intake, IV Titration 1671.917 899.454 98.794 Amount Diltiazem 125 mg In 93.333 125 Sodium Chloride 0.9% 100 ml @ 5 MG/HR 5 mls/hr IV .Q24H [facility] Rx#:[id number] Heparin Sod,Pork in 0.45% 250.000 442.979 NaCl 25,000 unit In 0.45 % NaCl 1 250ml.bag @ 6.1 UNITS/KG/HR 9.998 mls/hr IV .Q24H [facility] Rx#: [id number] Mvi, Adult No.4 with Vit 1046 K 10 ml Trace (Conc-1Ml/ Dose) 1 ml Calcium Gluconate 1 gm Potassium Acetate 40 meq Potassium Phosphate 15 mmol In Amino Acid 5%-D15w 1,000 ml @ 55 mls/hr IV .Q19H2M [facility] Rx#:[id number] Propofol 1,000 mg In 282.584 331.475 98.794 Empty Bag 1 bag @ Titrate IV .Q0M [facility] Rx#: [id number] Lipid 3 Pressure Bag 3 Output: Gastric Drainage 290 300 Drainage 560 250 Abdomen 550 200 Medial Abdomen 10 50 Urine 2420 1665 850 Stool 150 Other: Voiding Method Indwelling Catheter Indwelling Catheter ABP, PAP, CO, CI - Last Documented Arterial Blood Pressure 112/52 - Exam Review of Systems ROS unobtainable: due to endotracheal tube Gen: This is a 72-year-old morbidly obese male. He is in the intensive care unit. Patient is intubated and on mechanical ventilation. Patient appears to be comfortable. HEENT: Head is atraumatic, normocephalic. Pupils equal, round. Sclerae is anicteric. NG tube in place to suction. Oral tracheal tube in place. Mucous membranes of the mouth are moist. NECK: Supple. No JVD. No lymphadenopathy. No thyromegaly. LUNGS: Diminished bilaterally with scattered rhonchi. Patient appears comfortable. HEART: Irregular rate and rhythm. Systolic murmur. cafeteria monitor atrial fibrillation with rate control. ABDOMEN: Soft. Large. Normal bowel sounds are present. Colostomy in the left upper quadrant with stool output. There is a large mid abdominal incision with wound VAC. CHAVEZ drain. Foster catheter draining clear urine. EXTREMITIES: anasarca and pedal edema. Midline to right upper arm. NEUROLOGICAL: Patient is sedated. - Labs CBC & Chem 7: 09/26/18 04:23 09/26/18 04:23 Labs: Abnormal Lab Results - Last 24 Hours (Table) 09/25/18 09/25/18 09/25/18 Range/Units 11:41 14:00 14:00 Hgb (13.0-17.5) gm/dL Hct (39.0-53.0) % MCV (80.0-100.0) fL MCH (25.0-35.0) pg MCHC (31.0-37.0) g/dL RDW (11.5-15.5) % Neutrophils # (1.3-7.7) k/uL Lymphocytes # (1.0-4.8) k/uL APTT 54.0 H (22.0-30.0) sec ABG pO2 (83-108) mmHg ABG Total CO2 (19-24) mmol/L Potassium 3.3 L (3.5-5.1) mmol/L Chloride (98-107) mmol/L BUN (9-20) mg/dL Glucose (74-99) mg/dL POC Glucose (mg/dL) 189 H (75-99) mg/dL Calcium (8.4-10.2) mg/dL 09/25/18 09/25/18 09/25/18 Range/Units 18:04 23:29 23:35 Hgb (13.0-17.5) gm/dL Hct (39.0-53.0) % MCV (80.0-100.0) fL MCH (25.0-35.0) pg MCHC (31.0-37.0) g/dL RDW (11.5-15.5) % Neutrophils # (1.3-7.7) k/uL Lymphocytes # (1.0-4.8) k/uL APTT (22.0-30.0) sec ABG pO2 (83-108) mmHg ABG Total CO2 (19-24) mmol/L Potassium 3.3 L (3.5-5.1) mmol/L Chloride (98-107) mmol/L BUN (9-20) mg/dL Glucose (74-99) mg/dL POC Glucose (mg/dL) 182 H 174 H (75-99) mg/dL Calcium (8.4-10.2) mg/dL 09/26/18 09/26/18 09/26/18 Range/Units 04:23 04:23 05:47 Hgb 7.6 L (13.0-17.5) gm/dL Hct 29.5 L (39.0-53.0) % MCV 68.3 L (80.0-100.0) fL MCH 17.7 L (25.0-35.0) pg MCHC 25.9 L (31.0-37.0) g/dL RDW 21.3 H (11.5-15.5) % Neutrophils # 8.6 H (1.3-7.7) k/uL Lymphocytes # 0.8 L (1.0-4.8) k/uL APTT (22.0-30.0) sec ABG pO2 (83-108) mmHg ABG Total CO2 (19-24) mmol/L Potassium (3.5-5.1) mmol/L Chloride 111 H (98-107) mmol/L BUN 23 H (9-20) mg/dL Glucose 187 H (74-99) mg/dL POC Glucose (mg/dL) 194 H (75-99) mg/dL Calcium 7.4 L (8.4-10.2) mg/dL 09/26/18 09/26/18 Range/Units 06:57 07:33 Hgb (13.0-17.5) gm/dL Hct (39.0-53.0) % MCV (80.0-100.0) fL MCH (25.0-35.0) pg MCHC (31.0-37.0) g/dL RDW (11.5-15.5) % Neutrophils # (1.3-7.7) k/uL Lymphocytes # (1.0-4.8) k/uL APTT 57.9 H (22.0-30.0) sec ABG pO2 59 L* (83-108) mmHg ABG Total CO2 26 H (19-24) mmol/L Potassium (3.5-5.1) mmol/L Chloride (98-107) mmol/L BUN (9-20) mg/dL Glucose (74-99) mg/dL POC Glucose (mg/dL) (75-99) mg/dL Calcium (8.4-10.2) mg/dL Microbiology - Last 24 Hours (Table) 09/24/18 00:40 Blood Culture - Preliminary Blood No Growth after 48 hours 09/23/18 19:05 Gram Stain - Preliminary Edwin-Harris Body Fluid Culture - Preliminary Staphylococcus epidermidis Gram Neg Bacilli 09/23/18 19:25 Gram Stain - Final Sputum Sputum Culture - Final Assessment and Plan Plan: 1. Abdominal pain secondary to perforated gastric ulcer, ischemic colon at the splenic flexure with bowel obstruction status post exploratory laparotomy, lysis of adhesions, repair of gastric ulcer, transverse colectomy and takedown of the splenic flexure. Continue fluconazole, Zosyn IV. Dr. Benedict consult appreciated. The patient has been seen by ostomy nurse. Trach and PEG tube today. 2. Hypovolemic shock status post IV fluid resuscitation and vasopressors. Patient is currently weaned off vasopressors. 3. Acute on chronic hypoxic respiratory failure secondary to above. Patient is currently intubated and on mechanical ventilation. Patient is managed by Dr. Mendoza. Dr. Mendoza concern for ARDS. Trach placement today. 4. Acute kidney injury secondary to shock. Continue to monitor closely 5. Lactic acidosis. 6. Paroxysmal atrial fibrillation with A. fib RVR, currently rate controlled. Eliquis is on hold. Patient is status post Kcentra for reversal of eliquis. Patient is status post IV amiodarone and now on Cardizem drip and heparin drip. Cardiology consult appreciated 7. Acute and chronic diastolic heart failure and generalized anasarca. IV Lasix 40 mg every 8 hours. Patient is status post albumin. 8. Severe COPD, stable. 9. Obstructive sleep apnea with CPAP, noncompliance. 10. Mild intermittent asthma, stable. 11. Hyperlipidemia. 12. Gastroesophageal reflux disease and GI prophylaxis. Continue Protonix 40 mg IV daily. 13. Diabetes mellitus type 2 uncontrolled with hyperglycemia secondary to steroids. Continue NovoLog scale every 6 hours. Hold metformin and Januvia. Levemir increased 10 units daily. 14. Severe protein calorie malnutrition due to nothing by mouth status. Patient on TPN. 15. Left atrial appendage thrombus found on MIKE during last admission. 16. Hypernatremia and hyperchloremia. 17. Adrenal insufficiency secondary to illness. Patient has been started on hydrocortef 50 mg IV every 12 hours. Discharge plan: [facility] next week. Impression and plan of care have been directed as dictated by the signing physician. Loreta Medellin nurse practitioner acting as scribe for signing physician.
[2018-09-26] MEDS ORDERED: ROCURONIUM BROMIDE 10 MG/ML 10 ML VIAL IV ONE (13:40)
[2018-09-26] MEDS ORDERED: fentaNYL (PF) 50 MCG/ML 2 ML AMP ONE (13:40)
[2018-09-26] MEDS ORDERED: LACTATED RINGERS 1,000 ML IV ONE (13:46)
--- NOTE | 2018-09-26 14:52 | CONS ---
CONSULTATION A 81-year-old gentleman who was admitted to hospital with perforated bowel and underwent surgery, intubated on vent, sedated, currently on IV heparin for chronic atrial fibrillation and left atrial appendage thrombus. PHYSICAL EXAM: Heart rate is 90 beats per minute, irregular. Blood pressure is 120/85. Chest exam reveals diminished air entry bilaterally. Heart exam reveals first and second heart sounds, irregular rhythm. Abdomen is status post surgery. Examination of extremities reveals bilateral pitting edema. LABS: Show that the hemoglobin is 7.6, creatinine is 0.9, potassium is 3.7. ASSESSMENT: Chronic atrial fibrillation with controlled ventricular rate, perforated bowel, status post surgery. Prognosis is guarded. Continue current medications. MMODL / IJN: [id number] /
[2018-09-26] MEDS ORDERED: MVI, ADULT NO.4 WITH VIT K 10 ML, TRACE (CONC-1ML/DOSE) 1 ML, CALCIUM GLUCONATE 1 GM, P... IV SCH ×6 (15:00)
--- NOTE | 2018-09-26 15:02 | P.OP ---
Date of Procedure: 09/26/18 Preoperative Diagnosis: Respiratory failure Malnutrition Postoperative Diagnosis: Respiratory failure Malnutrition Procedure(s) Performed: Tracheostomy EGD Anesthesia: TIM Surgeon: Duane De Leon Estimated Blood Loss (ml): 10 Pathology: none sent Condition: stable Disposition: PACU Description of Procedure: The patient's placed on the operative table in the supine position. He received general anesthesia. His neck was prepped and draped usual sterile fashion. A standard skin incision was made approximately 2 cm above the sternal notch. Using left cautery the subcutaneous tissues and platysma were divided. A week later placed a wound. And then the strap muscles were divided midline. The trachea was exposed. The pretracheal fat was divided with left cautery. The trachea was visualized. At this point the endotracheal tube was placed in the right mainstem bronchus and then insufflated. Patient was ventilated. The ventilation was then stopped the tracheotomy was performed between the second and third cartilage rings. A #8 double venous tracheotomy tube was placed in the trachea under direct visualization after the endotracheal tube was brought back. The patient was connected to the ventilator and end-tidal CO2 was confirmed. The skin was closed with 3-0 nylon after the retraction withdrawn. Patient top procedure well. Next the gastroscope placed oropharynx passed in the esophagus and stomach. The stomach was visualized. There was a small antral ulcer visualized. Multiple times made to elicit a light reflex in the abdominal wall. Patient had a colostomy in the left upper quadrant and a midline wound with a wound VAC. No suitable spot for the gastric tube was visualized. At this point the endoscope was withdrawn. Patient top procedure well was sent back to the ICU on the ventilator.
--- NOTE | 2018-09-26 15:12 | PN ---
PROGRESS NOTE DATE OF SERVICE: 09/26/2018 REASON FOR FOLLOWUP: Abdominal abscess from perforated peptic ulcer disease and ischemic splenic flexure. INTERVAL HISTORY: The patient is currently afebrile. The patient is hemodynamically stable. Not on any pressor support. FiO2 is stable. Patient failed to be extubated and is going for a trach and PEG this afternoon. Family at the bedside. PHYSICAL EXAMINATION: Blood pressure is 124/78 with a pulse of 90, temperature 98, he is 96% on 45% FiO2. General description is an elderly male, lying in bed in no distress. RESPIRATORY SYSTEM: Unlabored breathing with decreased breath sounds at the bases. HEART: S1, S2. Regular rate and rhythm. ABDOMEN: Soft. Midline incision covered with wound VAC. LABS: Hemoglobin is 7.1, white count 9.8 with a BUN of 22, creatinine 0.1. DIAGNOSTIC IMPRESSION AND PLAN: Patient with abdominal sepsis from a perforated peptic ulcer disease and ischemic splenic flexure, status post laparotomy and operative repair of the same. Patient started on Zosyn and Diflucan, to continue while monitoring him closely. Family at the bedside, their questions were answered. MMODL / IJN: [id number] /
[2018-09-26] MEDS: NOREPINEPHRINE 8 MG in SODIUM CHLORIDE 0.9% 250 ML IV SCH (15:41)
--- NOTE | 2018-09-26 17:04 | XR ---
EXAMINATION TYPE: XR chest 1V portable DATE OF EXAM: 09/26/2018 COMPARISON: Prior chest x-ray 09/26/2018 and earlier time HISTORY: Tracheostomy tube placement TECHNIQUE: Single frontal view of the chest is obtained. FINDINGS: There has been interval placement of a tracheostomy tube and interval removal of the endot jabier tube. No pneumothorax. No significant interval change. Orogastric tube, central venous cathet er are stable. Bibasilar increased density is again noted. Heart is enlarged. Central vascularity is prominent. Hemidiaphragms are obscured. IMPRESSION: Status post tracheostomy tube placement. No other significant interval change.
[2018-09-26] MEDS ORDERED: LACTATED RINGERS 1,000 ML IV SCH (17:32)
[2018-09-26 17:46] LABS: Glucose,Whole Blood 173 mg/dL (75-99)
[2018-09-26] MEDS: HYDROmorphone 1 MG/ML 1 ML SYRINGE IVP PRN (21:58)
[2018-09-26 23:49] LABS: Glucose,Whole Blood 204 mg/dL (75-99)
[2018-09-27] MEDS: PROPOFOL 1,000 MG in EMPTY BAG 1 BAG IV SCH ×9 (02:28→20:09)
[2018-09-27] MEDS: IPRATROPIUM-ALBUTEROL 3 ML NEB INHALATION SCH ×6 (03:16→23:27)
[2018-09-27] MEDS: DILTIAZEM 125 MG in SODIUM CHLORIDE 0.9% 100 ML IV SCH ×2 (05:10→17:27)
[2018-09-27 05:19] LABS: Calcium 7.2 mg/dL (8.4-10.2); Magnesium 2.1 mg/dL (1.6-2.3); Phosphorus 4.8 mg/dL (2.5-4.5); Potassium 4.2 mmol/L (3.5-5.1)
[2018-09-27] MEDS: INSULIN ASPART (NovoLOG) 100 UNIT/ML VIAL SQ SCH ×4 (06:30→23:50)
[2018-09-27] MEDS: NOREPINEPHRINE 8 MG in SODIUM CHLORIDE 0.9% 250 ML IV SCH (06:32)
[2018-09-27] MEDS: HYDROmorphone 1 MG/ML 1 ML SYRINGE IVP PRN ×2 (06:33→09:56)
[2018-09-27 06:39] LABS: Glucose,Whole Blood 184 mg/dL (75-99)
[2018-09-27] MEDS ORDERED: INSULIN DETEMIR (LEVEMIR) 100 UNIT/ML SYR SQ SCH (07:00)
--- NOTE | 2018-09-27 07:33 | XR ---
EXAMINATION TYPE: XR chest 1V portable DATE OF EXAM: 09/27/2018 HISTORY: SOB. REFERENCE: Previous study dated 09/26/2018. FINDINGS: A tracheostomy tube is in place. The tip overlies the tracheal air column in this single fr ontal projection. There is a right internal jugular catheter in place. Its tip projects over the cavo atrial junction. Heart size upper limits of normal. There is bibasilar airspace disease. There are small, bilateral ef fusions. The overall appearance is quite similar to previous. IMPRESSION: NO SIGNIFICANT INTERVAL CHANGE IN THE APPEARANCE OF THE CHEST.
[2018-09-27 07:39] LABS: Anisocytosis Moderate; Basophils % (A) 0 %; Eosinophils # (A) 0.1 k/uL (0-0.7); Eosinophils % (A) 0 %; HCT 31.6 % (39.0-53.0); HGB 8.2 gm/dL (13.0-17.5); Hypochromasia Marked; Lymphocytes % (A) 8 %; MCH 19.1 pg (25.0-35.0); Microcytosis Marked; Monocytes # (A) 0.4 k/uL (0-1.0); Monocytes % (A) 3 %; Neutrophils # (A) 11.2 k/uL (1.3-7.7); Neutrophils % (A) 88 %; Platelet Count 292 k/uL (150-450); Poikilocytosis Moderate; RBC 4.29 m/uL (4.30-5.90); RDW 21.1 % (11.5-15.5); WBC 12.8 k/uL (3.8-10.6)
[2018-09-27 07:41] LABS: MCV 73.7 fL (80.0-100.0)
[2018-09-27] MEDS: PIPERACILLIN-TAZOBACTAM 3.375 GM in SODIUM CHLORIDE 0.9% 100 ML IVPB SCH ×3 (08:10→23:50)
[2018-09-27] MEDS: HYDROCORTISONE SUCCINATE 100 MG/2 ML VIAL IV SCH ×2 (08:11→20:08)
[2018-09-27] MEDS: FLUCONAZOLE IN NACL,ISO-OSM 200 MG in SALINE 1 100ML.BAG IVPB SCH (08:11)
[2018-09-27] MEDS: PANTOPRAZOLE 40 MG/10 ML VIAL IVP SCH (08:11)
[2018-09-27] MEDS: FUROSEMIDE 10 MG/ML 4 ML VIAL IV SCH ×3 (08:12→23:51)
[2018-09-27] MEDS: CHLORHEXIDINE GLUCONATE 15 ML CUP MUCOUS MEM SCH ×2 (08:12→20:08)
[2018-09-27 08:18] LABS: ABG Base Excess 0.2 mmol/L; ABG HCO3 26 mmol/L (21-25); ABG Oxygen Saturation 98.3 % (94-97); ABG PCO2 48 mmHg (35-45); ABG PH 7.34 (7.35-7.45); ABG PO2 87 mmHg (83-108); ABG TCO2 28 mmol/L (19-24); Allen Test Performed? Yes
--- NOTE | 2018-09-27 08:40 | P.PN ---
Progress Note - Text Progress Note Date: 09/27/18 The patient had a tracheostomy placed yesterday. He has been ventilating well. There is been no evidence of air leaks. His PEG tube could not be placed secondary to his wound VAC and left upper quadrant colostomy. On exam his vital signs appear stable. Abdomen soft. Colostomy dysfunction. Wound VAC is in place. Respiratory failure with tracheostomy. Patient will have a Dobbhoff tube placed for enteral nutrition.
[2018-09-27] MEDS: HEPARIN SOD,PORK IN 0.45% NACL 25,000 UNIT in 0.45% NACL 1 250ML.BAG IV SCH ×2 (10:59→20:30)
[2018-09-27] MEDS ORDERED: AMIODARONE 360 MG in DEXTROSE 5% IN WATER 200 ML IV ONE ×2 (11:07)
[2018-09-27] MEDS ORDERED: DEXTROSE 5% IN WATER 100 ML with AMIODARONE 150 MG IV ONE (11:07)
--- NOTE | 2018-09-27 11:07 | P.PN ---
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 The patient presented yesterday to the emergency department with extreme abdominal pain. The patient was apparently a constipated for a week and he was doing enemas at home. He ultimately felt a pop in the lower portion of his abdomen on the day of the presentation and he came in with severe abdominal pain. He was having emesis. CAT scan of the abdomen was done in the emergency department the patient was found to have no apparent 20. The patient had abdominal distention and his abdominal size was twice the normal. His blood pressure was in the low 90s. He was tachycardic with a heart rate in the 1:30. He was given IV fluids. He was given IV Zosyn. Blood cultures were sent. He was seen by general surgery and the patient was taken to the operating room, and the patient was found to have perforated gastric ulcer, ischemic colon at the site of the splenic flexure of bowel obstruction. The patient underwent expiratory laparotomy, lysis of adhesions, decompression of the colon and small bowel, transverse colectomy and takedown of the splenic flexure and repair of the gastric ulcer. Estimated blood loss is only 100 mL. The patient overnight was brought into the intensive care unit. The patient was resuscitated aggressively with IV fluids. He was given colloids and crystalloids. He is given 8 L of IV fluids. He was started on pressors and currently norepinephrine infusion is running at 62 g per minute. The patient was also started on physiologic dose vasopressin at 0.03 units per minute. Currently is on propofol at 14 mics for sedation. He is receiving normal saline at the rate of 150 mL an hour. Urine output is in order of 20-30 mL an hour. He is warm. His temperature was 100.5. He is on a mechanical ventilator. He is on assist-control mode of ventilation with a tidal volume of 550 at the rate of 26 with an FiO2 of 80% and a PEEP of 5. Blood gases from this morning shows a pH of 7.315 with a pCO2 of 40 and pO2 of 134. His echocardiogram from previous admissions showed an ejection fraction of 55-60%. He had a preserved LV function. No significant valvular abnormalities. Pulmonary to pressure estimated to be 44. His cardiac rhythm is currently sinus. The patient has a CHAVEZ drain in his abdomen and this is on the r ight side and output is around 80-90 mL of serous material. He also has a colostomy and the site is nonfunctioning it seems to be viable at this point. Note that the patient was in the hospital and he was discharged home on 09/12/2018 after being treated for a flutter/failure with rapid ventricular response and shortness of breath and acute diastolic heart failure. Upon discharge, the patient was started on amiodarone thousand milligrams twice a day, Eliquis, Aldactone, and he was given Augmentin on outpatient basis and a prednisone burst taper. He was discharged home on a 40 mg of prednisone. On today's evaluation of 09/18/2018, the patient is postop day #2. The patient is still sedated with propofol at 35 g per KG per minute. The patient is was sedated and calm and comfortable on a mechanical ventilator essentially on the same vent setting with a tidal volume of 550 and FiO2 of 50% with a PEEP of 5 and a respiratory rate of 26. The morning blood gases showed a pH of 7.36 with a pCO2 of 33 and pO2 of 109 and this was done and FiO2 of 50%. Chest x-ray showing cardiomegaly and some mild pulmonary vascular congestion. ET tube is in a good location. The patient has no significant rest or secretions. Hemodynamically, the patient has been aggressively resuscitated IV fluids. The patient is currently on normal saline the rate of 150 mL an hour. The patient is producing more than 50 mL an hour of urine output. The patient is still requiring pressors. The patient is on physiologic dose vasopressin. The patient is also on norepinephrine infusion which is currently running at 21 g per minute. The patient is afebrile. The patient is nothing by mouth. The patient has bowel sounds and the patient has also has a colostomy in place. NG tube is in place output has been around 200 mL over the past 8 hours. Earlier this morning, the patient was seen to be in tachycardia. A 12-lead EKG was done and the rhythm is essentially undetermined. This is most likely supraventricular rhythm, A. fib versus flutter. SCDs felt to be less likely. A. fib is favored nontender the patient has had previous history of atrial fibrillation. This has not affected the patient's overall hemodynamics and blood pressure control. The white cell count is at 9.6. Hemoglobin was 8.5. The patient continues to be in acute kidney failure. Creatinine is up to 1.80 is stable compared to yesterday. On today's evaluation of 09/19/2018 the patient is postop day #3. On today's evaluation that has been further progress and the patient's blood pressure. Currently is only on 5 mics of norepinephrine infusion the patient is also on vasopressin physiologic dose. There has been considerable improvement in the pressor requirements over the past 24-48 hours. He is still producing more than 100 mL of urine output. Afebrile. Still intubated on a mechanical ventilator. Vent settings are essentially unchanged compared to yesterday with a tidal volume of 550 FiO2 of 50% with a PEEP of 5 and the respiratory rate of 26. Blood gases from today showed a pH of 7.36 with a pCO2 of 35 and pO2 of 121 and this was done and FiO2 of 50%. The patient is was arrested on propofol which is running at 40 mics. Chest x-ray from today shows bilateral pleural effusion and ET tube is in a good location. The patient has positive bowel sounds. The patient is producing some stool activity in his colostomy bag. The CHAVEZ drain output is minimal. NG tube output is minimal. The patient is still on broad- spectrum antibiotic coverage. Cultures from the abdominal wound have been all negative. White cell count is not elevated. Hemoglobin stable at 7.8. Family is at the bedside. As far as atrial fibrillation, the patient was bolused with amiodarone and following that the patient was maintained at a lower heart rate yet still in atrial fibrillation. No anticoagulants for now. The function is improving and the creatinine is down to 1.2. On 09/20/2018 patient is postop day #4. The patient is sedated this morning. The patient is off pressors and norepinephrine infusion and vasopressin has been discontinued. Urine output is excellent. We have noted increased in output from the CHAVEZ drain which has put out approximately 400 mL over the past few hours. Meanwhile the, surgical wound site is dry clean and intact. The patient has a functional colostomy and there is stool output in the colostomy bag. The patient remains on a mechanical ventilator. Vent settings are essentially unchanged. The patient had a blood gases this morning that showed a pH of 7.4 with a pCO2 of 34 and pO2 of 76. The patient had a chest x-ray that showed vascular congestion and edema and bilateral pleural effusions. The patient is on TPN for nutritional support. IV fluids have been cut down to KVO. He is on propofol for sedation. Elisha output is minimal at this point in time. No fever. No chills. Sedation holiday was given yesterday at the patient was not ready for any weaning. The same will be done today. Meanwhile, the patient is still in atrial fibrillation. The patient was taken off the amiodarone drip. The patient was started in IV heparin. Cardizem drip will be started today for rate control. The patient is afebrile. Renal function is normalized and the creatinine is down to 1.02. On 09/21/2018 patient is postop day #5. Sedation holiday was given. The patient woke up appropriately. Unable to give me good weaning parameters. Given a showed spontaneous breathing trial and he feels that the patient became tachypneic tachycardic and the trial was discontinued. He is back on assist control mode of ventilation. Chest x-ray showing pulmonary vessel congestion/edema. The patient is a negative fluid balance of 1.3 L and the patient is producing excellent urine output. His dose of Lasix will be given to augment the urine output and establish a better negative fluid balance over the next 24 hours. Otherwise, he started on TPN for nutritional support. He is on a Cardizem drip for rate control. He is in atrial fibrillation. He is on IV heparin. He is afebrile. He is on broad-spectrum antibiotics. The ostomy is viable and there is stool within the bag. Discussed the case with general surgery and no plans for feeding at this point in time. A barium swallow needs to be done later stage to make sure there is no bowel leak. Reevaluated today on 09/22/2018, patient remains on mechanical ventilation, remains on multiple meds, but not requiring any pressors. He is on vent settings assist-control mode of mechanical ventilation with tidal volume of 550 rate of 26, FiO2 40% PEEP of 5. Patient remains on Cardizem, on TPN, heparin, Zosyn and Diflucan and on propofol drip. Weaning trial failed yesterday, and the same happened today, patient was taken off propofol, and after few hours he became extremely agitated, tachypneic, tachycardic, and had to place him back on propofol. However his mental status was noted to be intact, and he was appropriate off propofol. I have a feeling that the patient may eventually require tracheostomy if he continues to fail daily weaning trials. Labs were reviewed his sodium is elevated chloride is 122, hence his IV fluid will be changed to D5W. His ABG showed a pO2 of 89 pCO2 of 35 pH of 7.43. CBC is relatively unremarkable WBC count is 8.5 hemoglobin is 7.8. His ostomy is viable. Patient remains on TPN. Reevaluated today on 09/23/2018, remains in the ICU, mechanically ventilated, not requiring any pressors, ventilator settings are basically the same as noted yesterday, tidal volume of 550 assist-control rate of 26 FiO2 of 40% PEEP of 5. Remains on antibiotics, heparin, TPN, Cardizem remains on propofol, chest x-ray is showing worsening airspace disease especially in the left lung, ultrasound of the chest did not reveal significant pleural effusion for thoracentesis. Nanda ent would have sedation interruption today, however based on the chest x-ray appearance, I have a feeling the patient will not tolerate any weaning. I am a bit concerned that the patient may be developing or having evolving ARDS picture and that is yet to be determined. In the meantime I will continue patient on diuretics, his urine output is excellent about 150 mL per hour. I kept him on D5W at 75 mL per hour. And I have recommended CVP monitoring. CBC today showed WBC count of 9.4 hemoglobin of 7.6. ABG this morning showed a pO2 of 71 pCO2 of 40 0 pH of 7.40 sodium remains elevated at 151, renal profile is relatively normal otherwise. Family is at bedside, and updated on his condition Reevaluated today on 09/24/2018, patient remains mechanically ventilated, in the ICU, his ventilator settings are tidal volume of 550 FiO2 of 50% rate of 26 and PEEP of 5.Remains on propofol, Cardizem drip, heparin drip, not requiring any pressors. Chest x-ray is showing evidence of pulmonary edema which again could be cardiogenic or noncardiogenic in nature, there is also some atelectasis at the bases. Pneumonia is not entirely excluded. Chest x-ray however is improving compared to yesterday's chest x-ray, ABG showed a pO2 of 79 pCO2 of 39 pH of 7.43. WBC count is 7.4 hemoglobin is 8.1. Renal profile seems to be normal. Potassium is a bit low at 3.2 being addressed. Patient remains on TPN, family updated on his condition today Reevaluated today on 09/25/2018, remains in the ICU, remains on mechanical ventilation, and his ventilator settings are basically the same as noted above. No change in the ventilator settings, FiO2 is down to 40%. ABG this morning showed a pO2 of 82 pCO2 of 37 pH of 7.45. CBC is relatively normal hemoglobin is 7.5, sodium is significantly improved down to 146 renal profile is normal with a BUN of 26 creatinine 0.82. Chest x-ray is suggestive of bilateral airspace disease, which is difficult to determine whether it is diastolic congestive heart failure or pneumonia or noncardiogenic pulmonary edema but nonetheless airspace disease seems to be improving. I believe it is likely a combination of pneumonia and noncardiogenic pulmonary edema. Patient was given a trial of weaning, however was poorly tolerated, he was awakened, seems to be quite weak, followed simple instructions, will keep him scheduled for tracheostomy tomorrow. Patient was reevaluated today on 09/26/2018, remains intubated, mechanically ventilated, his ventilator settings are assist control rate of 26, FiO2 is up to 45%, PEEP is 5. Antiembolic is 550. ABG showed a pO2 of 59 and I was on 40% FiO2 pCO2 was 37 pH of 7.45. Chest x-ray is showing worsening airspace disease involving the left lung, possibly cardiogenic or noncardiogenic pulmonary edema, but his Lasix dose was increased. And his IV fluid was cut down. Sodium seems to be much better and improved. Hemoglobin remains at 7.6. No need for any blood transfusion at this point. Electrodes are normal renal profile is normal. Patient remains on propofol, his also on Cardizem, however heparin is presently on hold for his tracheostomy and PEG tube which is scheduled for today. Remains on TPN. And remains on antibiotics and on antifungal therapy. Reevaluated today on 09/27/2018, patient remains in the ICU, intubated, mechanically ventilated, tracheostomy was done yesterday, however a PEG tube cou ld not be placed because of the wound VAC and the left upper quadrant colostomy. Patient is still on assist control mode of mechanical ventilation, my plan today is to taper his propofol down, assess mental status, may consider even a trial of pressure support and CPAP. Last night the patient was extremely tachypneic and tachycardic, he was given more propofol, and his FiO2 was increased to 45%. Today the patient is on same vent settings, and his ABG showed a pO2 of 87 pCO2 of 48 pH of 7.34. Hemoglobin is 8.2 electrolytes are normal. BUN is 28 creatinine is 1.04. Remains on Cardizem, back on heparin, not requiring any pressors at this point. Urine output is excellent. Remains on diuretics, and his chest x-ray is showing some improvement in his airspace disease and what seems to be a picture of pulmonary edema. Objective - Vital Signs Vital signs: Vital Signs Temp 99.8 F H 09/27/18 07:30 Pulse 116 H 09/27/18 10:30 Resp 30 H 09/27/18 10:30 BP 108/73 09/27/18 10:30 Pulse Ox 82 L 09/27/18 10:30 Intake & Output 09/26/18 09/27/18 09/27/18 18:59 06:59 18:59 Intake Total 3038.130 1029.136 831.505 Output Total 4515 2005 935 Balance -1476.870 -975.864 -103.495 Weight 148 kg 150.5 kg Intake: IV 2096 438 550 Dextrose 5% in Water 1, 400 325 125 000 ml @ 25 mls/hr IV . Q24H [facility] Rx#:[id number] Fluconazole in NaCl,Iso- 100 50 Osm 200 mg In Saline 1 100ml.bag @ 100 mls/hr IVPB DAILY [facility] Rx#: [id number] Magnesium Sulfate-D5w Pmx 200 1 gm In Dextrose/Water 1 100ml.bag @ 100 mls/hr IVPB Q1H [facility] Rx#: [id number] Mvi, Adult No.4 with Vit 660 110 275 K 10 ml Trace (Conc-1Ml/ Dose) 1 ml Calcium Gluconate 1 gm Potassium Acetate 40 meq Potassium Phosphate 15 mmol In Amino Acid 5%-D15w 1,000 ml @ 55 mls/hr IV .Q19H2M [facility] Rx#:[id number] Piperacillin-Tazobactam 3 200 100 .375 gm In Sodium Chloride 0.9% 100 ml @ 25 mls/hr IVPB Q8HR [facility] Rx# :[id number] Pressure Bag 36 3 Intake, IV Titration 932.130 471.136 201.505 Amount Diltiazem 125 mg In 125 Sodium Chloride 0.9% 100 ml @ 5 MG/HR 5 mls/hr IV .Q24H [facility] Rx#:[id number] Norepinephrine 8 mg In 0 Sodium Chloride 0.9% 250 ml @ 0.05 MCG/KG/MIN 14. 35 mls/hr IV .[id number] [facility] Rx#:[id number] Potassium Chloride 10 meq 100 In Water For Injection 1 100ml.bag @ 100 mls/hr IVPB Q1H [facility] Rx#: [id number] Propofol 1,000 mg In 307.130 371.136 201.505 Empty Bag 1 bag @ Titrate IV .Q0M [facility] Rx#: [id number] Sodium Chloride 0.9% 1, 500 000 ml @ 20 mls/hr IV . Q24H [facility] Rx#:[id number] Tube Feeding 10 120 50 Other 30 Output: Drainage 400 400 Abdomen 200 400 Medial Abdomen 200 Urine 3350 1255 585 Stool 750 350 350 Estimated Blood Loss 15 Other: Voiding Method Indwelling Catheter Indwelling Catheter Indwelling Catheter ABP, PAP, CO, CI - Last Documented Arterial Blood Pressure 112/52 - Exam Physical Exam: Revealed 72-year-old white male on mechanical ventilation, on propofol, however we are in the process of tapering the propofol down to assess mental status. Head: Atraumatic, normocephalic. HEENT:[Neck is supple.] [No neck masses.] [No thyromegaly.] [No JVD.] Tracheostomy is intact, dry mucous membranes noted.. Chest: [Symmetrical chest expansion, crackles and rhonchi noted bilaterally Cardiac Exam: [Normal S1 and S2, no S3 gallop, no murmur.] Abdomen: [Postsurgical, Soft, nontender, no megaly, no rebound, no guarding, diminished bowel sounds, colostomy seems to be viable with healthy tissue, and some output noted in the colostomy bag. Abdominal incision is dry and clean. Wound VAC is noted. Extremities: [No clubbing, trace of bipedal edema. edema, no cyanosis.] Neurological Exam: Cannot be assessed, fully sedated on propofol today. In the process of tapering propofol down for assessment of mental status. Lymphatics: No lymphadenopathy. Skin: No rashes. Psychiatric: Could not be assessed. - Labs CBC & Chem 7: 09/27/18 04:30 09/27/18 04:30 Labs: Abnormal Lab Results - Last 24 Hours (Table) 09/26/18 09/26/18 09/26/18 Range/Units 11:58 17:44 23:48 WBC (3.8-10.6) k/uL RBC (4.30-5.90) m/uL Hgb (13.0-17.5) gm/dL Hct (39.0-53.0) % MCV (80.0-100.0) fL MCH (25.0-35.0) pg MCHC (31.0-37.0) g/dL RDW (11.5-15.5) % Neutrophils # (1.3-7.7) k/uL ABG pH (7.35-7.45) ABG pCO2 (35-45) mmHg ABG HCO3 (21-25) mmol/L ABG Total CO2 (19-24) mmol/L ABG O2 Saturation (94-97) % Chloride (98-107) mmol/L BUN (9-20) mg/dL Glucose (74-99) mg/dL POC Glucose (mg/dL) 215 H 173 H 204 H (75-99) mg/dL Calcium (8.4-10.2) mg/dL Phosphorus (2.5-4.5) mg/dL 09/27/18 09/27/18 09/27/18 Range/Units 04:30 04:30 06:27 WBC 12.8 H (3.8-10.6) k/uL RBC 4.29 L (4.30-5.90) m/uL Hgb 8.2 L (13.0-17.5) gm/dL Hct 31.6 L (39.0-53.0) % MCV 73.7 L D (80.0-100.0) fL MCH 19.1 L (25.0-35.0) pg MCHC 26.0 L (31.0-37.0) g/dL RDW 21.1 H (11.5-15.5) % Neutrophils # 11.2 H (1.3-7.7) k/uL ABG pH (7.35-7.45) ABG pCO2 (35-45) mmHg ABG HCO3 (21-25) mmol/L ABG Total CO2 (19-24) mmol/L ABG O2 Saturation (94-97) % Chloride 108 H (98-107) mmol/L BUN 28 H (9-20) mg/dL Glucose 179 H (74-99) mg/dL POC Glucose (mg/dL) 184 H (75-99) mg/dL Calcium 7.2 L (8.4-10.2) mg/dL Phosphorus 4.8 H (2.5-4.5) mg/dL 09/27/18 Range/Units 08:16 WBC (3.8-10.6) k/uL RBC (4.30-5.90) m/uL Hgb (13.0-17.5) gm/dL Hct (39.0-53.0) % MCV (80.0-100.0) fL MCH (25.0-35.0) pg MCHC (31.0-37.0) g/dL RDW (11.5-15.5) % Neutrophils # (1.3-7.7) k/uL ABG pH 7.34 L (7.35-7.45) ABG pCO2 48 H (35-45) mmHg ABG HCO3 26 H (21-25) mmol/L ABG Total CO2 28 H (19-24) mmol/L ABG O2 Saturation 98.3 H (94-97) % Chloride (98-107) mmol/L BUN (9-20) mg/dL Glucose (74-99) mg/dL POC Glucose (mg/dL) (75-99) mg/dL Calcium (8.4-10.2) mg/dL Phosphorus (2.5-4.5) mg/dL Microbiology - Last 24 Hours (Table) 09/24/18 00:40 Blood Culture - Preliminary Blood No Growth after 72 hours Assessment and Plan Assessment: Impression: 1 perforated gastric ulcer/ischemic colon at the level of splenic fracture with bowel obstruction. Status post exploratory laparotomy, lysis of adhesions, repair of a gastric ulcer, transverse colectomy postoperative day #11 2 septic shock secondary to abdominal sepsis, recovered. 3 acute hypoxic respiratory failure secondary to septic shock and abdominal sepsis. 4 acute kidney injury secondary to above, recovered 6 history of paroxysmal atrial fibrillation . Remains on heparin and Cardizem. 7 COPD, presently inactive 8 status post tracheostomy postoperative day #1. 9 suspect acute diastolic heart failure, improving with diuretics, . 10 failure to wean, multifactorial. 11 diabetes mellitus type 2, on insulin protocol. 12 chronic hypoxic respiratory failure with an oxygen at 2 L per minute nasal cannula on outpatient basis 13 suspect some component of critical illness polyneuropathy. Patient seems to be quite weak. Recommendation: Continue ventilatory support Continue antibiotics, empirically. Continue GI and DVT prophylaxis Continue diuretics, dose of Lasix was increased to 40 mg IV push every 8 hours. Continue D5 W however cut down to 25 mL per hour. Continue TPN, patient was started on minimal feeding today via orogastric tube. As recommended by surgery. Continue to monitor daily electrolytes Continue daily interruption of sedation and mental assessment. Discussed his condition with family at bedside, plan today is to continue enteral feeding slowly, hold propofol and assess mental status, and if tolerated may consider trials of pressure support and CPAP. In the meantime the patient remains quite critically ill, continues to require intensive care management, prognosis remains guarded, critical care time is 35 minutes. Time with Patient: Greater than 30
[2018-09-27] MEDS: SODIUM CHLORIDE 0.9% 1,000 ML IV SCH ×2 (11:53→17:31)
[2018-09-27 12:04] LABS: Glucose,Whole Blood 233 mg/dL (75-99)
[2018-09-27] MEDS: MVI, ADULT NO.4 WITH VIT K 10 ML, TRACE (CONC-1ML/DOSE) 1 ML, CALCIUM GLUCONATE 1 GM, P... IV SCH ×6 (12:37)
--- NOTE | 2018-09-27 13:09 | P.PN ---
Subjective Progress Note Date: 09/27/18 Principal diagnosis: Persistent atrial fibrillation, LOI thrombus The patient is a 81-year-old male who is currently admitted after exploratory lap for perforated bowel. He is currently intubated on a ventilator, sedated, on IV heparin drip and Cardizem drip for persistent atrial fibrillation. He is also known to have a left atrial appendage thrombus. GENERAL: Currently sedated, resting comfortably NECK: Supple without JVD or thyromegaly. LUNGS: Breath sounds rhonchorous. Respiration equal. No wheezes, rales or rhonchi. HEART: Heart rate irregular. Heart rate in the low 100s. No murmurs, rubs or gallops. S1 and S2 heard. EXTREMITIES: +3 pitting edema. No clubbing or cyanosis. Peripheral pulses intact and strong. Labs: WBC 12.8, hemoglobin 8.2, hematocrit 31.6, sodium 142, potassium 4.2, BUN 28, creatinine 1.04, magnesium 2.1, phosphorus 4.8 Assessment: #1 persistent atrial fibrillation, currently on Cardizem drip at 10 mg per hour #2 status post abdominal surgery, perforated bowel Plan: Continue current medication regimen. May increase Cardizem drip up to 15 mg per hour to maintain heart rate in the low 100s. Continue anticoagulation. Objective - Vital Signs Vital signs: Vital Signs Temp 99.1 F 09/27/18 11:10 Pulse 154 H 09/27/18 12:00 Resp 26 H 09/27/18 12:00 BP 98/62 09/27/18 12:00 Pulse Ox 96 09/27/18 12:00 Intake & Output 09/26/18 09/27/18 09/27/18 18:59 06:59 18:59 Intake Total 3038.130 4772.870 1970.491 Output Total 4515 2005 1019 Balance -1476.870 -975.864 48.491 Weight 148 kg 150.5 kg Intake: IV 3433 438 710 Dextrose 5% in Water 1, 400 325 175 000 ml @ 25 mls/hr IV . Q24H [facility] Rx#:[id number] Fluconazole in NaCl,Iso- 100 50 Osm 200 mg In Saline 1 100ml.bag @ 100 mls/hr IVPB DAILY [facility] Rx#: [id number] Magnesium Sulfate-D5w Pmx 200 1 gm In Dextrose/Water 1 100ml.bag @ 100 mls/hr IVPB Q1H [facility] Rx#: [id number] Mvi, Adult No.4 with Vit 660 110 385 K 10 ml Trace (Conc-1Ml/ Dose) 1 ml Calcium Gluconate 1 gm Potassium Acetate 40 meq Potassium Phosphate 15 mmol In Amino Acid 5%-D15w 1,000 ml @ 55 mls/hr IV .Q19H2M [facility] Rx#:[id number] Piperacillin-Tazobactam 3 200 100 .375 gm In Sodium Chloride 0.9% 100 ml @ 25 mls/hr IVPB Q8HR [facility] Rx# :[id number] Pressure Bag 36 3 Intake, IV Titration 932.130 471.136 257.491 Amount Diltiazem 125 mg In 125 Sodium Chloride 0.9% 100 ml @ 5 MG/HR 5 mls/hr IV .Q24H [facility] Rx#:[id number] Heparin Sod,Pork in 0.45% 0 NaCl 25,000 unit In 0.45 % NaCl 1 250ml.bag @ 6.1 UNITS/KG/HR 9.998 mls/hr IV .Q24H [facility] Rx#: [id number] Norepinephrine 8 mg In 0 Sodium Chloride 0.9% 250 ml @ 0.05 MCG/KG/MIN 14. 35 mls/hr IV .[id number] [facility] Rx#:[id number] Potassium Chloride 10 meq 100 In Water For Injection 1 100ml.bag @ 100 mls/hr IVPB Q1H [facility] Rx#: [id number] Propofol 1,000 mg In 307.130 371.136 257.491 Empty Bag 1 bag @ Titrate IV .Q0M [facility] Rx#: [id number] Sodium Chloride 0.9% 1, 500 000 ml @ 20 mls/hr IV . Q24H [facility] Rx#:[id number] Tube Feeding 10 120 70 Other 30 Output: Drainage 400 400 Abdomen 200 400 Medial Abdomen 200 Urine 3350 1255 669 Stool 750 350 350 Estimated Blood Loss 15 Other: Voiding Method Indwelling Catheter Indwelling Catheter Indwelling Catheter ABP, PAP, CO, CI - Last Documented Arterial Blood Pressure 112/52 - Labs CBC & Chem 7: 09/27/18 04:30 09/27/18 04:30 Labs: Abnormal Lab Results - Last 24 Hours (Table) 08/04/1509/26/18 09/27/18 Range/Units 17:44 23:48 04:30 WBC (3.8-10.6) k/uL RBC (4.30-5.90) m/uL Hgb (13.0-17.5) gm/dL Hct (39.0-53.0) % MCV (80.0-100.0) fL MCH (25.0-35.0) pg MCHC (31.0-37.0) g/dL RDW (11.5-15.5) % Neutrophils # (1.3-7.7) k/uL ABG pH (7.35-7.45) ABG pCO2 (35-45) mmHg ABG HCO3 (21-25) mmol/L ABG Total CO2 (19-24) mmol/L ABG O2 Saturation (94-97) % Chloride 108 H (98-107) mmol/L BUN 28 H (9-20) mg/dL Glucose 179 H (74-99) mg/dL POC Glucose (mg/dL) 173 H 204 H (75-99) mg/dL Calcium 7.2 L (8.4-10.2) mg/dL Phosphorus 4.8 H (2.5-4.5) mg/dL 09/27/18 09/27/18 09/27/18 Range/Units 04:30 06:27 08:16 WBC 12.8 H (3.8-10.6) k/uL RBC 4.29 L (4.30-5.90) m/uL Hgb 8.2 L (13.0-17.5) gm/dL Hct 31.6 L (39.0-53.0) % MCV 73.7 L D (80.0-100.0) fL MCH 19.1 L (25.0-35.0) pg MCHC 26.0 L (31.0-37.0) g/dL RDW 21.1 H (11.5-15.5) % Neutrophils # 11.2 H (1.3-7.7) k/uL ABG pH 7.34 L (7.35-7.45) ABG pCO2 48 H (35-45) mmHg ABG HCO3 26 H (21-25) mmol/L ABG Total CO2 28 H (19-24) mmol/L ABG O2 Saturation 98.3 H (94-97) % Chloride (98-107) mmol/L BUN (9-20) mg/dL Glucose (74-99) mg/dL POC Glucose (mg/dL) 184 H (75-99) mg/dL Calcium (8.4-10.2) mg/dL Phosphorus (2.5-4.5) mg/dL 09/27/18 Range/Units 12:02 WBC (3.8-10.6) k/uL RBC (4.30-5.90) m/uL Hgb (13.0-17.5) gm/dL Hct (39.0-53.0) % MCV (80.0-100.0) fL MCH (25.0-35.0) pg MCHC (31.0-37.0) g/dL RDW (11.5-15.5) % Neutrophils # (1.3-7.7) k/uL ABG pH (7.35-7.45) ABG pCO2 (35-45) mmHg ABG HCO3 (21-25) mmol/L ABG Total CO2 (19-24) mmol/L ABG O2 Saturation (94-97) % Chloride (98-107) mmol/L BUN (9-20) mg/dL Glucose (74-99) mg/dL POC Glucose (mg/dL) 233 H (75-99) mg/dL Calcium (8.4-10.2) mg/dL Phosphorus (2.5-4.5) mg/dL Microbiology - Last 24 Hours (Table) 09/24/18 00:40 Blood Culture - Preliminary Blood No Growth after 72 hours
--- NOTE | 2018-09-27 13:16 | P.PN ---
Subjective Progress Note Date: 09/27/18 This is a 72-year-old male patient of Dr. Cevallos with past history of chronic hypoxic respiratory failure on home O2 obstructive sleep apnea on CPAP, paroxysmal atrial fibrillation, chronic diastolic heart failure, severe COPD, morbid obesity with BMI of 47, hypertension hypertensive cardiovascular disease, mild intermittent asthma, hyperlipidemia, gastroesophageal reflux disease, diabetes mellitus type 2, cellulitis of the abdominal wall. Patient was recently hospitalized and discharged home on September 12 and treated for acute diastolic heart failure, atrial flutter/atrial fibrillation with rapid ventricular response status post MIKE which found a small atrial appendage thrombus. The patient was stabilized and discharged home in stable condition and had been started on amiodarone, eliquis, Aldactone, prednisone and Augmentin. Patient presented to [facility] emergency center for evaluation. He was afebrile, heart rate 130s, blood pressure 119/79, pulse ox 95%. White count was 5.9, hemoglobin 10.6, platelet count 4-72. Sodium 133, potassium 5.4, chloride 96, CO2 20, BUN 36 and creatinine 1.6, blood sugar 178. CAT scan of the abdomen and pelvis revealed pneumoperitoneum. Bowel distention. Bowel ischemia not excluded. No clear obstruction. Findings may be due to ileus. Patient was provided IV fluids, pain medication and Zosyn patient was seen by Dr. De Leon in the emergency center and taken to the OR found to have a perforated gastric ulcer, ischemic colon at the site of splenic flexure of the bowel obstruction. Patient underwent exploratory laparotomy, lysis of adhesions, decompression of the colon and small bowel, transverse colectomy and takedown of splenic flexure and repair of a gastric ulcer. Patient was then transferred to the intensive care unit and followed by Dr. Red. He is status post greater than 8 L of IV fluid and on norepinephrine and subsequent started on vasopressin. Urine output has been marginal patient remains intubated and on mechanical ventilation with tidal volume 550, FiO2 of 50% and PEEP of 5. The patient is on sedation. 09/18: Patient remains in intensive care unit intubated and on mechanical vent ilation with tidal volume 550, FiO2 50, PEEP 5. NG tube with black drainage. He is on 22 mics of levo fed and 0.03 vasopressin. Patient was started on amiodarone due to continued A. fib with RVR. Heart rate is in the 140s, blood pressure systolic 99. A.m. lab work white count 9.6, hemoglobin 8.5, platelet count 368. Sodium 136, potassium 4.9, chloride 108, CO2 18, BUN 39 creatinine 1.81. Blood sugars are running between 141 and 161. Urine culture is in progress and blood culture is no growth at [address] Benedict is recommended continuing Zosyn and Diflucan. Son is at bedside and all questions have been answered. 09/19: Patient remains in the intensive care unit intubated and on mechanical ventilation with tidal volume 550, FiO2 40 and PEEP of 5. Norepinephrine is now down to 5 mics and minimal on vasopressin. Urine output has been more than adequate. He has been afebrile. He is continued on sedation with propofol. A sedation holiday was attempted today but patient became tachypneic. Patient is back on sedation with plan for tomorrow for sedation holiday tomorrow. Patient has had output from colostomy and passing gas and colostomy. Decreased output from NG tube and from CHAVEZ drain. WBC 8.6, hemoglobin 7.8. He has been afebrile, heart rate 99, blood pressure 90/63. TPN has been started. Amiodarone drip to be discontinued. equipment monitor phototypesetting is currently A. fib with controlled rate. 09/20 Patient remains in ICU, currently nothing by mouth, CHAVEZ drain has drained ov er 2 L in 24 hours, patient has been off pressors, urine output is normal, patient is still on TPN, patient still has abdominal discomfort, otherwise no chest pain no shortness of breath, no palpitations. Hemoglobin currently at 7.4 from an admitting hemoglobin of 9.4, iron studies to be done, agent has initial myelocytes on admission, creatinine 1.02 from 1.2, surgical incision is dry, there is stool output in the colostomy bag, patient remains on mechanical ventilator, unchanged and settings. Followed closely by pulmonary medicine, Cardizem drip was initiated for atrial fibrillation. Attempt to be made with weaning ventilatory support in a.m. : Postop day #5, he was given sedation holiday today, and was able to follow verbal commands, unable to wean today secondary to parameters from Dr. Red, patient went back to assist control mode of ventilation, Lasix was given 401 dose for CHF, pulmonary edema, blood pressure remains stable, negative balance of 1.3 L, urine output is good, has decreased output on the CHAVEZ drain, small amount of mucus stools today, still diminished bowel sounds currently nothing by mouth, general surgery following closely, 09/22: Patient remains intubated and on mechanical ventilation with tidal volume 550, FiO2 40, PEEP 5. Patient failed weaning attempt this morning. Patient is off vasopressors. He has been afebrile, heart rate 108, blood pressure 116/57. Repeat lab work reveals white count of 8.5, hemoglobin 7.8, platelet count 372. Sodium is 150, potassium 3.9, chloride 122, CO2 20, BUN 29 creatinine 0.92. Blood sugars run between 160 08/[birth year]/1976. Phosphorus 3.4. Magnesium 2.4. Repeat chest x-ray this morning reveals persistent bilateral infiltrate and pleural effusion correlate for heart failure. Patient is maintained on Cardizem drip started over the weekend by direct support professional. The patient is also continued on TPN. No plan for tube feedings until extubated. Patient does have a liquid stool in ostomy. Urine output has been adequate. CHAVEZ drain remains in place. Consult for cardiology added for atrial fibrillation. 09/23: Repeat chest x-ray shows diffuse pleuroparenchymal changes are stable correlate for diffuse pneumonia versus heart failure. Chest ultrasound shows small left pleural effusion. Cardiology is following for atrial fibrillation. Patient is maintained on IV Cardizem and heparin. Blood pressure is currently controlled. Heart rate is also controlled. The temperature max 100.7, heart rate 98, blood pressure 126/83, pulse ox 93%. We have ordered pancultures including blood culture, sputum, urine, CHAVEZ drain cultures to be obtained. Patient is continued on sedation, intubation and mechanical ventilation. Tidal volume FiO2 550, FiO2 40, PEEP of 5. Repeat lab work reveals white count of 9.4, hemoglobin 7.6, count 372. Sodium 151, potassium 3.4, chloride 119, CO2 24, creatinine 0.94, BUN 27. Blood sugars running between 170 and 182. General surgery planning for wound VAC to the abdominal incision. Patient is now on IV Lasix [address] Mendoza is concern for evolving ARDS. Anticipate probable trach and PEG tube placement by the end of the week. 09/24: The patient remains intubated and on mechanical ventilation with tidal volume 550, FiO2 50%, PEEP 5. Patient remains on sedation. No low-grade fevers this morning. equipment monitor phototypesetting is A. fib with controlled rate in the 80s and 90s. Patient remains on Cardizem drip and heparin drip. Blood pressure is currently stable. Lasix is at 40 mg IV every 12 hours with noted decrease edema. Patient has good urine output, positive stool output. Patient has been started on Solu-Cortef. 09/25: Patient remains intubated and on mechanical ventilation with tidal volume 550, FiO2 40, PEEP 5. He is on norepinephrine. Patient is scheduled for trach and PEG tube tomorrow. NG tube is in place to suction. He still noted to have generalized anasarca and now hydrocele on the scrotum. Patient has been afebrile, heart rate 88, blood pressure 117/68. Repeat lab work reveals hemoglobin 7.5, WBC 9.4, hemoglobin 323. Sodium 146, potassium 3.6, chloride 114, CO2 24, BUN 26, creatinine 0.82. Blood sugars in the low 200s. Patient will be started on Levemir 6 units daily. 09/26: Patient remains in the intensive care unit, intubated and on mechanical ventilation with a 5 O2 of 40% and PEEP of 5. He is scheduled for PEG tube and trach placement today. Chest x-ray reveals diffuse pleuroparenchymal changes are stable and correlate for pneumonia versus heart failure. Patient remains on Cardizem and heparin drip for atrial fibrillation, controlled rate. The patient also continued on full, soft and Zosyn. Culture from CHAVEZ drain is positive for Staphylococcus epidermidis and gram-negative bacilli. Lasix currently at 40 mg IV every 8 hours and Solu-Cortef 50 mg IV every 12 hours. A blood sugars remain elevated and Levemir will be increased to 10 units. CHAVEZ drain was scant amount of drainage. Gastric tube remains in place. Wound VAC for abdominal wound. 09/27: Patient had trach placed yesterday but PEG tube was unsuccessful. He remains on mechanical ventilation with tidal volume 550, FiO2 45 and PEEP of 5. NG tube is in place. Patient is on TPN. He remains on Cardizem drip and to resume heparin drip later today. He is currently off sedation. Temperature max 100.4. Heart rate 150 with atrial fibrillation, respirations 26, blood pressure 95/61, pulse ox 95%. WBC 12.8, hemoglobin 8.2, platelet count 292. Sodium 142, potassium 4.2, chloride 108, CO2 23, BUN 20 creatinine 1.04. Blood sugars are r unning between 184 and 233. Magnesium 2.1 phosphorus 4.8. Today, cardiology has started the patient on amiodarone drip for rate control. Levemir will be increased 12 units daily. Repeat chest x-ray reveals no significant interval change. Objective - Vital Signs Vital signs: Vital Signs Temp 99.8 F H 09/27/18 07:30 Pulse 110 H 09/27/18 09:30 Resp 34 H 09/27/18 09:30 BP 101/70 09/27/18 09:30 Pulse Ox 94 L 09/27/18 09:30 Intake & Output 09/26/18 09/27/18 09/27/18 18:59 06:59 18:59 Intake Total 3038.130 1029.136 650.000 Output Total 4515 2005 750 Balance -1476.870 -975.864 -100.000 Weight 148 kg 150.5 kg Intake: IV 2096 438 390 Dextrose 5% in Water 1, 400 325 75 000 ml @ 25 mls/hr IV . Q24H [facility] Rx#:[id number] Fluconazole in NaCl,Iso- 100 50 Osm 200 mg In Saline 1 100ml.bag @ 100 mls/hr IVPB DAILY [facility] Rx#: [id number] Magnesium Sulfate-D5w Pmx 200 1 gm In Dextrose/Water 1 100ml.bag @ 100 mls/hr IVPB Q1H [facility] Rx#: [id number] Mvi, Adult No.4 with Vit 660 110 165 K 10 ml Trace (Conc-1Ml/ Dose) 1 ml Calcium Gluconate 1 gm Potassium Acetate 40 meq Potassium Phosphate 15 mmol In Amino Acid 5%-D15w 1,000 ml @ 55 mls/hr IV .Q19H2M [facility] Rx#:[id number] Piperacillin-Tazobactam 3 200 100 .375 gm In Sodium Chloride 0.9% 100 ml @ 25 mls/hr IVPB Q8HR [facility] Rx# :[id number] Pressure Bag 36 3 Intake, IV Titration 932.130 471.136 200.000 Amount Diltiazem 125 mg In 125 Sodium Chloride 0.9% 100 ml @ 5 MG/HR 5 mls/hr IV .Q24H [facility] Rx#:[id number] Norepinephrine 8 mg In 0 Sodium Chloride 0.9% 250 ml @ 0.05 MCG/KG/MIN 14. 35 mls/hr IV .[id number] [facility] Rx#:[id number] Potassium Chloride 10 meq 100 In Water For Injection 1 100ml.bag @ 100 mls/hr IVPB Q1H [facility] Rx#: [id number] Propofol 1,000 mg In 307.130 371.136 200.000 Empty Bag 1 bag @ Titrate IV .Q0M [facility] Rx#: [id number] Sodium Chloride 0.9% 1, 500 000 ml @ 20 mls/hr IV . Q24H [facility] Rx#:[id number] Tube Feeding 10 120 30 Other 30 Output: Drainage 400 400 Abdomen 200 400 Medial Abdomen 200 Urine 3350 1255 400 Stool 750 350 350 Estimated Blood Loss 15 Other: Voiding Method Indwelling Catheter Indwelling Catheter Indwelling Catheter ABP, PAP, CO, CI - Last Documented Arterial Blood Pressure 112/52 - Exam Review of Systems ROS unobtainable: due to endotracheal tube Gen: This is a 72-year-old morbidly obese male. He is in the intensive care unit. Patient is intubated and on mechanical ventilation. Patient appears to be comfortable. HEENT: Head is atraumatic, normocephalic. Pupils equal, round. Sclerae is anicteric. NG tube in place to suction. Trach in place connected to mechanical ventilation. NECK: Supple. No JVD. No lymphadenopathy. No thyromegaly. LUNGS: Diminished bilaterally with scattered rhonchi. Patient appears comfo rtable. HEART: Irregular rate and rhythm. Systolic murmur. equipment monitor phototypesetting atrial fibrillation with RVR. ABDOMEN: Soft. Large. Normal bowel sounds are present. Colostomy in the left upper quadrant with stool output. There is a large mid abdominal incision with wound VAC. CHAVEZ drain. Foster catheter draining clear urine. EXTREMITIES: anasarca and pedal edema. Midline to right upper arm. NEUROLOGICAL: Patient is sedated. - Labs CBC & Chem 7: 09/27/18 04:30 09/27/18 04:30 Labs: Abnormal Lab Results - Last 24 Hours (Table) 09/26/18 09/26/18 09/26/18 Range/Units 11:58 17:44 23:48 WBC (3.8-10.6) k/uL RBC (4.30-5.90) m/uL Hgb (13.0-17.5) gm/dL Hct (39.0-53.0) % MCV (80.0-100.0) fL MCH (25.0-35.0) pg MCHC (31.0-37.0) g/dL RDW (11.5-15.5) % Neutrophils # (1.3-7.7) k/uL ABG pH (7.35-7.45) ABG pCO2 (35-45) mmHg ABG HCO3 (21-25) mmol/L ABG Total CO2 (19-24) mmol/L ABG O2 Saturation (94-97) % Chloride (98-107) mmol/L BUN (9-20) mg/dL Glucose (74-99) mg/dL POC Glucose (mg/dL) 215 H 173 H 204 H (75-99) mg/dL Calcium (8.4-10.2) mg/dL Phosphorus (2.5-4.5) mg/dL 09/27/18 09/27/18 09/27/18 Range/Units 04:30 04:30 06:27 WBC 12.8 H (3.8-10.6) k/uL RBC 4.29 L (4.30-5.90) m/uL Hgb 8.2 L (13.0-17.5) gm/dL Hct 31.6 L (39.0-53.0) % MCV 73.7 L D (80.0-100.0) fL MCH 19.1 L (25.0-35.0) pg MCHC 26.0 L (31.0-37.0) g/dL RDW 21.1 H (11.5-15.5) % Neutrophils # 11.2 H (1.3-7.7) k/uL ABG pH (7.35-7.45) ABG pCO2 (35-45) mmHg ABG HCO3 (21-25) mmol/L ABG Total CO2 (19-24) mmol/L ABG O2 Saturation (94-97) % Chloride 108 H (98-107) mmol/L BUN 28 H (9-20) mg/dL Glucose 179 H (74-99) mg/dL POC Glucose (mg/dL) 184 H (75-99) mg/dL Calcium 7.2 L (8.4-10.2) mg/dL Phosphorus 4.8 H (2.5-4.5) mg/dL 09/27/18 Range/Units 08:16 WBC (3.8-10.6) k/uL RBC (4.30-5.90) m/uL Hgb (13.0-17.5) gm/dL Hct (39.0-53.0) % MCV (80.0-100.0) fL MCH (25.0-35.0) pg MCHC (31.0-37.0) g/dL RDW (11.5-15.5) % Neutrophils # (1.3-7.7) k/uL ABG pH 7.34 L (7.35-7.45) ABG pCO2 48 H (35-45) mmHg ABG HCO3 26 H (21-25) mmol/L ABG Total CO2 28 H (19-24) mmol/L ABG O2 Saturation 98.3 H (94-97) % Chloride (98-107) mmol/L BUN (9-20) mg/dL Glucose (74-99) mg/dL POC Glucose (mg/dL) (75-99) mg/dL Calcium (8.4-10.2) mg/dL Phosphorus (2.5-4.5) mg/dL Microbiology - Last 24 Hours (Table) 09/24/18 00:40 Blood Culture - Preliminary Blood No Growth after 72 hours Assessment and Plan Plan: 1. Abdominal pain secondary to perforated gastric ulcer, ischemic colon at the splenic flexure with bowel obstruction status post exploratory laparotomy, lysis of adhesions, repair of gastric ulcer, transverse colectomy and takedown of the splenic flexure. Continue fluconazole, Zosyn IV. Dr. Benedict consult appreciated. The patient has been seen by ostomy nurse. Trach and PEG tube today. 2. Hypovolemic shock status post IV fluid resuscitation and vasopressors. Patient is currently weaned off vasopressors. 3. Acute on chronic hypoxic respiratory failure secondary to above. Patient is currently intubated and on mechanical ventilation. Patient is managed by Dr. Mendoza. Dr. Mendoza concern for ARDS. Trach placement today. 4. Acute kidney injury secondary to shock. Continue to monitor closely 5. Lactic acidosis. 6. Paroxysmal atrial fibrillation with A. fib RVR, currently RVR. Eliquis is on hold. Patient is status post Kcentra for reversal of eliquis. Amiodarone drip has been ordered by cardiology. Patient to resume heparin today which was on hold for trach yesterday. 7. Acute and chronic diastolic heart failure and generalized anasarca. IV Lasix 40 mg every 8 hours. Patient is status post albumin. 8. Severe COPD, stable. 9. Obstructive sleep apnea with CPAP, noncompliance. 10. Mild intermittent asthma, stable. 11. Hyperlipidemia. 12. Gastroesophageal reflux disease and GI prophylaxis. Continue Protonix 40 mg IV daily. 13. Diabetes mellitus type 2 uncontrolled with hyperglycemia secondary to steroids. Continue NovoLog scale every 6 hours. Hold metformin and Januvia. Levemir increased 12 units daily. 14. Severe protein calorie malnutrition due to nothing by mouth status. Patient on TPN. 15. Left atrial appendage thrombus found on MIKE during last admission. 16. Hypernatremia and hyperchloremia. 17. Adrenal insufficiency secondary to illness. Patient has been started on hydrocortef 50 mg IV every 12 hours. Discharge plan: [facility] next week. Impression and plan of care have been directed as dictated by the signing physician. Loreta Medellin nurse practitioner acting as scribe for signing physician.
[2018-09-27] MEDS ORDERED: SODIUM CHLORIDE 0.9% 500 ML 500 ML IV ONE ×3 (13:31→16:36)
[2018-09-27] MEDS: DEXTROSE 5% IN WATER 1,000 ML IV SCH (14:14)
[2018-09-27] MEDS ORDERED: CISATRACURIUM 2 MG/ML 5 ML VIAL IV ONE (16:36)
--- NOTE | 2018-09-27 16:36 | XR ---
EXAMINATION TYPE: XR chest 1V portable DATE OF EXAM: 09/27/2018 CLINICAL HISTORY: Difficulty breathing and hypoxia progress study. TECHNIQUE: Single AP portable semiupright view of the chest is obtained. COMPARISON: Chest x-ray from earlier today and older studies FINDINGS: A tracheostomy tube and orogastric tube are redemonstrated along with stable right interna l jugular central venous catheter. Persistent cardiomegaly with central vascular congestion and bibas ilar opacities. No pneumothorax bilaterally. Osseous structures are intact. IMPRESSION: Overall stable findings, suspect CHF exacerbation as there is cardiomegaly with mild/mo derate central vascular congestion and [id number] bilateral pleural effusions likely present b ilaterally. There is associated bibasilar atelectasis and/or infiltrate.
[2018-09-27] MEDS ORDERED: ARTIFICIAL TEARS-HYPROMELLOSE DROPS 15 ML BTL BOTH EYES PRN (16:40)
[2018-09-27] MEDS: AMIODARONE 300 MG in DEXTROSE 5% IN WATER 250 ML IV SCH ×2 (17:28)
[2018-09-27] MEDS: CISATRACURIUM 200 MG in SODIUM CHLORIDE 0.9% 180 ML IV SCH (17:30)
[2018-09-27 17:36] LABS: ABG HCO3 25 mmol/L (21-25); ABG Oxygen Saturation 97.5 % (94-97); ABG PCO2 67 mmHg (35-45); ABG PO2 80 mmHg (83-108); ABG TCO2 27 mmol/L (19-24); Allen Test Performed? Yes
[2018-09-27 17:38] LABS: ABG PH 7.17 (7.35-7.45)
[2018-09-27 18:21] LABS: Glucose,Whole Blood 223 mg/dL (75-99)
[2018-09-27] MEDS: HEPARIN SODIUM,PORCINE 5,000 UNIT/ML 1 ML VIAL IV PRN (18:45)
[2018-09-27 23:01] LABS: Glucose,Whole Blood 219 mg/dL (75-99)
[2018-09-27 23:27] LABS: Glucose,Whole Blood 247 mg/dL (75-99)
[2018-09-28] MEDS: PROPOFOL 1,000 MG in EMPTY BAG 1 BAG IV SCH ×6 (02:02→22:37)
[2018-09-28] MEDS: IPRATROPIUM-ALBUTEROL 3 ML NEB INHALATION SCH ×6 (03:17→23:06)
[2018-09-28] MEDS: SODIUM CHLORIDE 0.9% 1,000 ML IV SCH ×2 (04:22→14:39)
[2018-09-28] MEDS: CISATRACURIUM 200 MG in SODIUM CHLORIDE 0.9% 180 ML IV SCH ×2 (04:22→14:07)
[2018-09-28] MEDS: AMIODARONE 300 MG in DEXTROSE 5% IN WATER 250 ML IV SCH ×2 (04:48)
[2018-09-28 04:52] LABS: Calcium 7.4 mg/dL (8.4-10.2); Magnesium 2.2 mg/dL (1.6-2.3); Phosphorus 6.5 mg/dL (2.5-4.5); Potassium 5.4 mmol/L (3.5-5.1)
[2018-09-28 05:17] LABS: Anisocytosis Moderate; Basophils % (A) 0 %; Eosinophils % (A) 0 %; HCT 30.6 % (39.0-53.0); HGB 7.4 gm/dL (13.0-17.5); Hypochromasia Marked; Lymphocytes % (A) 6 %; MCH 17.4 pg (25.0-35.0); MCV 72.4 fL (80.0-100.0); Mean Platelet Volume 8.3; Microcytosis Marked; Monocytes # (A) 0.5 k/uL (0-1.0); Monocytes % (A) 4 %; Neutrophils # (A) 13.5 k/uL (1.3-7.7); Neutrophils % (A) 89 %; Platelet Count 300 k/uL (150-450); Poikilocytosis Moderate; RBC 4.23 m/uL (4.30-5.90); RDW 21.5 % (11.5-15.5); WBC 15.2 k/uL (3.8-10.6)
[2018-09-28] MEDS: HEPARIN SOD,PORK IN 0.45% NACL 25,000 UNIT in 0.45% NACL 1 250ML.BAG IV SCH ×3 (05:38→23:24)
[2018-09-28] MEDS: NOREPINEPHRINE 8 MG in SODIUM CHLORIDE 0.9% 250 ML IV SCH ×2 (05:52→15:06)
[2018-09-28 05:58] LABS: Glucose,Whole Blood 229 mg/dL (75-99)
[2018-09-28] MEDS: INSULIN ASPART (NovoLOG) 100 UNIT/ML VIAL SQ SCH ×4 (06:02→23:23)
[2018-09-28] MEDS: DILTIAZEM 125 MG in SODIUM CHLORIDE 0.9% 100 ML IV SCH ×2 (06:05→16:47)
--- NOTE | 2018-09-28 06:22 | XR ---
EXAMINATION TYPE: XR chest 1V portable DATE OF EXAM: 09/28/2018 HISTORY: SOB. REFERENCE: Previous study dated 10/24/2018. FINDINGS: The patient is intubated. Tracheostomy tube overlies the tracheal air column in this single frontal projection. A right internal jugular catheter is in place. Its tip is within the right atriu m. The heart is enlarged. There is bibasilar infiltrates. There are bilateral effusions. IMPRESSION: NO SIGNIFICANT INTERVAL CHANGE IN CHEST
[2018-09-28] MEDS ORDERED: INSULIN DETEMIR (LEVEMIR) 100 UNIT/ML SYR SQ SCH (07:00)
[2018-09-28] MEDS: MVI, ADULT NO.4 WITH VIT K 10 ML, TRACE (CONC-1ML/DOSE) 1 ML, CALCIUM GLUCONATE 1 GM, P... IV SCH ×6 (07:02)
[2018-09-28 07:13] LABS: ABG Base Excess -5.5 mmol/L; ABG HCO3 21 mmol/L (21-25); ABG Oxygen Saturation 98.6 % (94-97); ABG PCO2 46 mmHg (35-45); ABG PH 7.28 (7.35-7.45); ABG PO2 99 mmHg (83-108); ABG TCO2 23 mmol/L (19-24); Allen Test Performed? Yes
[2018-09-28] MEDS ORDERED: IOPAMIDOL-300 CONTRAST 30 ML VIAL (ORAL USE) PO PRN (08:00)
[2018-09-28] MEDS ORDERED: SODIUM CHLORIDE 0.9% 1,000 ML IV ONE (08:03)
[2018-09-28] MEDS: IOPAMIDOL-300 CONTRAST 30 ML VIAL (ORAL USE) PO PRN ×2 (08:33→09:30)
[2018-09-28] MEDS: PIPERACILLIN-TAZOBACTAM 3.375 GM in SODIUM CHLORIDE 0.9% 100 ML IVPB SCH ×2 (08:33→15:53)
[2018-09-28] MEDS: FLUCONAZOLE IN NACL,ISO-OSM 200 MG in SALINE 1 100ML.BAG IVPB SCH (08:34)
[2018-09-28] MEDS: HYDROCORTISONE SUCCINATE 100 MG/2 ML VIAL IV SCH ×2 (08:38→20:07)
[2018-09-28] MEDS: HYDROmorphone 1 MG/ML 1 ML SYRINGE IVP PRN (08:39)
[2018-09-28] MEDS: PANTOPRAZOLE 40 MG/10 ML VIAL IVP SCH (08:39)
[2018-09-28] MEDS: CHLORHEXIDINE GLUCONATE 15 ML CUP MUCOUS MEM SCH ×2 (08:39→20:07)
--- NOTE | 2018-09-28 09:44 | P.PN ---
Progress Note - Text Progress Note Date: 09/28/18 The patient has become oliguric overnight. His white count has increased. The patient remains on the ventilator. Abdomen is soft distended there is a colostomy in the left upper quadrant functioning. Patient will undergo computed tomography scan of the abdomen to rule out intra- abdominal abscess. His CHAVEZ drain has some serous ascites. There is no evidence of any purulent drainage in the CHAVEZ drain. His condition is quite guarded.
--- NOTE | 2018-09-28 10:47 | CT ---
EXAMINATION TYPE: CT abdomen pelvis wo con DATE OF EXAM: 09/28/2018 COMPARISON: Previous study dated 09/16/2018. HISTORY: Patient intubated at time of scan. Possible abscess per RN CT DLP: 1569.4 mGycm Automated exposure control for dose reduction was used. FINDINGS: There has been interval development of bilateral effusions. There is associated bibasilar a irspace disease, either representing atelectasis or pneumonia. There is no pericardial fluid. The hea rt is enlarged. Within the abdomen: The liver is prominent measuring 24 cm. The gallbladder is contracted. The spleen is unremarkable. There is an NG tube with its tip within the stomach. Both adrenal glands appear normal There is no evidence of hydronephrosis or nephrolithiasis. Limited views of the pancreas are normal. No significant retroperitoneal, iliac or inguinal adenopathy. There is a Foster catheter within the bl adder. There is no significant diverticular change and there is no radiographic evidence of diverticulitis. The appendix is not visualized with certainty. There is colonic wall thickening involving the ascendi ng colon Small bowel loops are of normal caliber. There is some interloop fluid in the left upper quadrant and also some mild ascites around the liver. There is a drainage catheter in the left upper quadrant. No definite abscess is seen. There is a stable wedge compression fracture of T12. IMPRESSION: 1. INTERVAL DEVELOPMENT OF MODERATE BILATERAL PLEURAL EFFUSIONS WITH ASSOCIATED ATELECTASIS OR CONSOL IDATION. 2. CARDIOMEGALY. 3. HEPATOMEGALY. 4. ASCITES WITHIN THE ABDOMEN WITHOUT A DEFINITE ABSCESS FORMATION. 5. STABLE WEDGE COMPRESSION FRACTURE OF T12.
[2018-09-28] MEDS ORDERED: FUROSEMIDE 10 MG/ML 10 ML VIAL IV STA (10:53)
--- NOTE | 2018-09-28 11:22 | P.PN ---
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 The patient presented yesterday to the emergency department with extreme abdominal pain. The patient was apparently a constipated for a week and he was doing enemas at home. He ultimately felt a pop in the lower portion of his abdomen on the day of the presentation and he came in with severe abdominal pain. He was having emesis. CAT scan of the abdomen was done in the emergency department the patient was found to have no apparent 20. The patient had abdominal distention and his abdominal size was twice the normal. His blood pressure was in the low 90s. He was tachycardic with a heart rate in the 1:30. He was given IV fluids. He was given IV Zosyn. Blood cultures were sent. He was seen by general surgery and the patient was taken to the operating room, and the patient was found to have perforated gastric ulcer, ischemic colon at the site of the splenic flexure of bowel obstruction. The patient underwent expiratory laparotomy, lysis of adhesions, decompression of the colon and small bowel, transverse colectomy and takedown of the splenic flexure and repair of the gastric ulcer. Estimated blood loss is only 100 mL. The patient overnight was brought into the intensive care unit. The patient was resuscitated aggressively with IV fluids. He was given colloids and crystalloids. He is given 8 L of IV fluids. He was started on pressors and currently norepinephrine infusion is running at 62 g per minute. The patient was also started on physiologic dose vasopressin at 0.03 units per minute. Currently is on propofol at 14 mics for sedation. He is receiving normal saline at the rate of 150 mL an hour. Urine output is in order of 20-30 mL an hour. He is warm. His temperature was 100.5. He is on a mechanical ventilator. He is on assist-control mode of ventilation with a tidal volume of 550 at the rate of 26 with an FiO2 of 80% and a PEEP of 5. Blood gases from this morning shows a pH of 7.315 with a pCO2 of 40 and pO2 of 134. His echocardiogram from previous admissions showed an ejection fraction of 55-60%. He had a preserved LV function. No significant valvular abnormalities. Pulmonary to pressure estimated to be 44. His cardiac rhythm is currently sinus. The patient has a CHAVEZ drain in his abdomen and this is on the r ight side and output is around 80-90 mL of serous material. He also has a colostomy and the site is nonfunctioning it seems to be viable at this point. Note that the patient was in the hospital and he was discharged home on 09/12/2018 after being treated for a flutter/failure with rapid ventricular response and shortness of breath and acute diastolic heart failure. Upon discharge, the patient was started on amiodarone thousand milligrams twice a day, Eliquis, Aldactone, and he was given Augmentin on outpatient basis and a prednisone burst taper. He was discharged home on a 40 mg of prednisone. On today's evaluation of 09/18/2018, the patient is postop day #2. The patient is still sedated with propofol at 35 g per KG per minute. The patient is was sedated and calm and comfortable on a mechanical ventilator essentially on the same vent setting with a tidal volume of 550 and FiO2 of 50% with a PEEP of 5 and a respiratory rate of 26. The morning blood gases showed a pH of 7.36 with a pCO2 of 33 and pO2 of 109 and this was done and FiO2 of 50%. Chest x-ray showing cardiomegaly and some mild pulmonary vascular congestion. ET tube is in a good location. The patient has no significant rest or secretions. Hemodynamically, the patient has been aggressively resuscitated IV fluids. The patient is currently on normal saline the rate of 150 mL an hour. The patient is producing more than 50 mL an hour of urine output. The patient is still requiring pressors. The patient is on physiologic dose vasopressin. The patient is also on norepinephrine infusion which is currently running at 21 g per minute. The patient is afebrile. The patient is nothing by mouth. The patient has bowel sounds and the patient has also has a colostomy in place. NG tube is in place output has been around 200 mL over the past 8 hours. Earlier this morning, the patient was seen to be in tachycardia. A 12-lead EKG was done and the rhythm is essentially undetermined. This is most likely supraventricular rhythm, A. fib versus flutter. SCDs felt to be less likely. A. fib is favored nontender the patient has had previous history of atrial fibrillation. This has not affected the patient's overall hemodynamics and blood pressure control. The white cell count is at 9.6. Hemoglobin was 8.5. The patient continues to be in acute kidney failure. Creatinine is up to 1.80 is stable compared to yesterday. On today's evaluation of 09/19/2018 the patient is postop day #3. On today's evaluation that has been further progress and the patient's blood pressure. Currently is only on 5 mics of norepinephrine infusion the patient is also on vasopressin physiologic dose. There has been considerable improvement in the pressor requirements over the past 24-48 hours. He is still producing more than 100 mL of urine output. Afebrile. Still intubated on a mechanical ventilator. Vent settings are essentially unchanged compared to yesterday with a tidal volume of 550 FiO2 of 50% with a PEEP of 5 and the respiratory rate of 26. Blood gases from today showed a pH of 7.36 with a pCO2 of 35 and pO2 of 121 and this was done and FiO2 of 50%. The patient is was arrested on propofol which is running at 40 mics. Chest x-ray from today shows bilateral pleural effusion and ET tube is in a good location. The patient has positive bowel sounds. The patient is producing some stool activity in his colostomy bag. The CHAVEZ drain output is minimal. NG tube output is minimal. The patient is still on broad- spectrum antibiotic coverage. Cultures from the abdominal wound have been all negative. White cell count is not elevated. Hemoglobin stable at 7.8. Family is at the bedside. As far as atrial fibrillation, the patient was bolused with amiodarone and following that the patient was maintained at a lower heart rate yet still in atrial fibrillation. No anticoagulants for now. The function is improving and the creatinine is down to 1.2. On 09/20/2018 patient is postop day #4. The patient is sedated this morning. The patient is off pressors and norepinephrine infusion and vasopressin has been discontinued. Urine output is excellent. We have noted increased in output from the CHAVEZ drain which has put out approximately 400 mL over the past few hours. Meanwhile the, surgical wound site is dry clean and intact. The patient has a functional colostomy and there is stool output in the colostomy bag. The patient remains on a mechanical ventilator. Vent settings are essentially unchanged. The patient had a blood gases this morning that showed a pH of 7.4 with a pCO2 of 34 and pO2 of 76. The patient had a chest x-ray that showed vascular congestion and edema and bilateral pleural effusions. The patient is on TPN for nutritional support. IV fluids have been cut down to KVO. He is on propofol for sedation. Elisha output is minimal at this point in time. No fever. No chills. Sedation holiday was given yesterday at the patient was not ready for any weaning. The same will be done today. Meanwhile, the patient is still in atrial fibrillation. The patient was taken off the amiodarone drip. The patient was started in IV heparin. Cardizem drip will be started today for rate control. The patient is afebrile. Renal function is normalized and the creatinine is down to 1.02. On 09/21/2018 patient is postop day #5. Sedation holiday was given. The patient woke up appropriately. Unable to give me good weaning parameters. Given a showed spontaneous breathing trial and he feels that the patient became tachypneic tachycardic and the trial was discontinued. He is back on assist control mode of ventilation. Chest x-ray showing pulmonary vessel congestion/edema. The patient is a negative fluid balance of 1.3 L and the patient is producing excellent urine output. His dose of Lasix will be given to augment the urine output and establish a better negative fluid balance over the next 24 hours. Otherwise, he started on TPN for nutritional support. He is on a Cardizem drip for rate control. He is in atrial fibrillation. He is on IV heparin. He is afebrile. He is on broad-spectrum antibiotics. The ostomy is viable and there is stool within the bag. Discussed the case with general surgery and no plans for feeding at this point in time. A barium swallow needs to be done later stage to make sure there is no bowel leak. Reevaluated today on 09/22/2018, patient remains on mechanical ventilation, remains on multiple meds, but not requiring any pressors. He is on vent settings assist-control mode of mechanical ventilation with tidal volume of 550 rate of 26, FiO2 40% PEEP of 5. Patient remains on Cardizem, on TPN, heparin, Zosyn and Diflucan and on propofol drip. Weaning trial failed yesterday, and the same happened today, patient was taken off propofol, and after few hours he became extremely agitated, tachypneic, tachycardic, and had to place him back on propofol. However his mental status was noted to be intact, and he was appropriate off propofol. I have a feeling that the patient may eventually require tracheostomy if he continues to fail daily weaning trials. Labs were reviewed his sodium is elevated chloride is 122, hence his IV fluid will be changed to D5W. His ABG showed a pO2 of 89 pCO2 of 35 pH of 7.43. CBC is relatively unremarkable WBC count is 8.5 hemoglobin is 7.8. His ostomy is viable. Patient remains on TPN. Reevaluated today on 09/23/2018, remains in the ICU, mechanically ventilated, not requiring any pressors, ventilator settings are basically the same as noted yesterday, tidal volume of 550 assist-control rate of 26 FiO2 of 40% PEEP of 5. Remains on antibiotics, heparin, TPN, Cardizem remains on propofol, chest x-ray is showing worsening airspace disease especially in the left lung, ultrasound of the chest did not reveal significant pleural effusion for thoracentesis. Nanda ent would have sedation interruption today, however based on the chest x-ray appearance, I have a feeling the patient will not tolerate any weaning. I am a bit concerned that the patient may be developing or having evolving ARDS picture and that is yet to be determined. In the meantime I will continue patient on diuretics, his urine output is excellent about 150 mL per hour. I kept him on D5W at 75 mL per hour. And I have recommended CVP monitoring. CBC today showed WBC count of 9.4 hemoglobin of 7.6. ABG this morning showed a pO2 of 71 pCO2 of 40 0 pH of 7.40 sodium remains elevated at 151, renal profile is relatively normal otherwise. Family is at bedside, and updated on his condition Reevaluated today on 09/24/2018, patient remains mechanically ventilated, in the ICU, his ventilator settings are tidal volume of 550 FiO2 of 50% rate of 26 and PEEP of 5.Remains on propofol, Cardizem drip, heparin drip, not requiring any pressors. Chest x-ray is showing evidence of pulmonary edema which again could be cardiogenic or noncardiogenic in nature, there is also some atelectasis at the bases. Pneumonia is not entirely excluded. Chest x-ray however is improving compared to yesterday's chest x-ray, ABG showed a pO2 of 79 pCO2 of 39 pH of 7.43. WBC count is 7.4 hemoglobin is 8.1. Renal profile seems to be normal. Potassium is a bit low at 3.2 being addressed. Patient remains on TPN, family updated on his condition today Reevaluated today on 09/25/2018, remains in the ICU, remains on mechanical ventilation, and his ventilator settings are basically the same as noted above. No change in the ventilator settings, FiO2 is down to 40%. ABG this morning showed a pO2 of 82 pCO2 of 37 pH of 7.45. CBC is relatively normal hemoglobin is 7.5, sodium is significantly improved down to 146 renal profile is normal with a BUN of 26 creatinine 0.82. Chest x-ray is suggestive of bilateral airspace disease, which is difficult to determine whether it is diastolic congestive heart failure or pneumonia or noncardiogenic pulmonary edema but nonetheless airspace disease seems to be improving. I believe it is likely a combination of pneumonia and noncardiogenic pulmonary edema. Patient was given a trial of weaning, however was poorly tolerated, he was awakened, seems to be quite weak, followed simple instructions, will keep him scheduled for tracheostomy tomorrow. Patient was reevaluated today on 09/26/2018, remains intubated, mechanically ventilated, his ventilator settings are assist control rate of 26, FiO2 is up to 45%, PEEP is 5. Antiembolic is 550. ABG showed a pO2 of 59 and I was on 40% FiO2 pCO2 was 37 pH of 7.45. Chest x-ray is showing worsening airspace disease involving the left lung, possibly cardiogenic or noncardiogenic pulmonary edema, but his Lasix dose was increased. And his IV fluid was cut down. Sodium seems to be much better and improved. Hemoglobin remains at 7.6. No need for any blood transfusion at this point. Electrodes are normal renal profile is normal. Patient remains on propofol, his also on Cardizem, however heparin is presently on hold for his tracheostomy and PEG tube which is scheduled for today. Remains on TPN. And remains on antibiotics and on antifungal therapy. Reevaluated today on 09/27/2018, patient remains in the ICU, intubated, mechanically ventilated, tracheostomy was done yesterday, however a PEG tube cou ld not be placed because of the wound VAC and the left upper quadrant colostomy. Patient is still on assist control mode of mechanical ventilation, my plan today is to taper his propofol down, assess mental status, may consider even a trial of pressure support and CPAP. Last night the patient was extremely tachypneic and tachycardic, he was given more propofol, and his FiO2 was increased to 45%. Today the patient is on same vent settings, and his ABG showed a pO2 of 87 pCO2 of 48 pH of 7.34. Hemoglobin is 8.2 electrolytes are normal. BUN is 28 creatinine is 1.04. Remains on Cardizem, back on heparin, not requiring any pressors at this point. Urine output is excellent. Remains on diuretics, and his chest x-ray is showing some improvement in his airspace disease and what seems to be a picture of pulmonary edema. Patient was reevaluated today on 09/2018, remains in the intensive care unit, intubated, mechanically ventilated, tracheostomy seems to be intact, however yesterday the patient took a downhill course and clinical deterioration. Trying to get him off propofol and wake of the patient, however as we went down to a lower dose of propofol, patient became more tachypneic and tachycardic, and he was breathing almost 40 times per minute, he was on assist control mode of m echanical ventilation. His urine output went down, and the patient became oliguric. Hence patient was placed back on propofol, remains tachypneic and tachycardic, increased his respiratory rate, placed the patient on a higher PEEP is presently on a PEEP of 10, yesterday he was on a PEEP of 8. Placed on Nimbex, and today the patient is becoming anuric, he is requiring higher FiO2, requiring placement on norepinephrine for low blood pressure. Hence a CT of the abdomen and pelvis was done, and it showed mostly ascites, small bilateral pleural effusions,by basilar atelectasis, hepatomegaly, and no evidence of abscess formation. I did recommend measurement of urinary bladder pressures, and recommended a nephrology consultation on the patient. Updated his family on his worsening clinical status. Presently he is on FiO2 of 60% PEEP of 10 tidal volume of 600, respiratory rate of 34. Last ABG this morning showeda pO2 of 99 pCO2 of 46 pH of 7.28, and the patient was on lower respiratory rate which was increased since then.his renal functioning is much worse today, and his BUN is 42 creatinine is 1.96. Bicarb is 20. Anion gap is nonexistent. Considering the patient was placed on Nimbex, I added Dilaudid 1 mg IV push every 4 hours [id number]. Objective - Vital Signs Vital signs: Vital Signs Temp 98.3 F 09/28/18 09:00 Pulse 78 09/28/18 10:30 Resp 34 H 09/28/18 10:30 BP 68/49 09/28/18 10:30 Pulse Ox 93 L 09/28/18 10:30 Intake & Output 09/27/18 09/28/18 09/28/18 18:59 06:59 18:59 Intake Total 4127.274 2990.429 4472.080 Output Total 1643 502 330 Balance 2484.274 2488.429 4142.080 Weight 154 kg Intake: IV 910 1212 503 Dextrose 5% in Water 1, 275 000 ml @ 25 mls/hr IV . Q24H [facility] Rx#:[id number] Fluconazole in NaCl,Iso- 50 100 Osm 200 mg In Saline 1 100ml.bag @ 100 mls/hr IVPB DAILY [facility] Rx#: [id number] Mvi, Adult No.4 with Vit 385 K 10 ml Trace (Conc-1Ml/ Dose) 1 ml Calcium Gluconate 1 gm Potassium Acetate 40 meq Potassium Phosphate 15 mmol In Amino Acid 5%-D15w 1,000 ml @ 55 mls/hr IV .Q19H2M [facility] Rx#:[id number] Piperacillin-Tazobactam 3 200 100 100 .375 gm In Sodium Chloride 0.9% 100 ml @ 25 mls/hr IVPB Q8HR [facility] Rx# :[id number] Pressure Bag 12 3 Sodium Chloride 0.9% 1, 1100 300 000 ml @ 100 mls/hr IV . Q10H [facility] Rx#:[id number] Intake, IV Titration 3047.274 3178.965 7921.080 Amount Amiodarone 300 mg In 250 Dextrose 5% in Water 250 ml @ 0.5 MG/MIN 25 mls/hr IV .Q10H [facility] Rx#: [id number] Cisatracurium 200 mg In 186.168 Sodium Chloride 0.9% 180 ml @ 1 MCG/KG/MIN 9.03 mls/hr IV .Q22H9M [facility] Rx# :[id number] Diltiazem 125 mg In 122.833 125 Sodium Chloride 0.9% 100 ml @ 5 MG/HR 5 mls/hr IV .Q24H [facility] Rx#:[id number] Heparin Sod,Pork in 0.45% 201.433 298.567 NaCl 25,000 unit In 0.45 % NaCl 1 250ml.bag @ 6.1 UNITS/KG/HR 9.998 mls/hr IV .Q24H [facility] Rx#: [id number] Mvi, Adult No.4 with Vit 55 495 1012.917 K 10 ml Trace (Conc-1Ml/ Dose) 1 ml Calcium Gluconate 1 gm Potassium Acetate 60 meq Magnesium Sulfate gm 1 gm In Amino Acid 5%-D15w 1,000 ml @ 55 mls/hr IV .Q19H9M [facility] Rx#:[id number] Mvi, Adult No.4 with Vit 330 110 110 K 10 ml Trace (Conc-1Ml/ Dose) 1 ml Calcium Gluconate 1 gm Potassium Acetate 60 meq Potassium Phosphate 15 mmol In Amino Acid 5%-D15w 1,000 ml @ 55 mls/hr IV . [id number] [facility] Rx#:[id number] Propofol 1,000 mg In 538.008 203.694 86.163 Empty Bag 1 bag @ Titrate IV .Q0M [facility] Rx#: [id number] Sodium Chloride 0.9% 1, 300 000 ml @ 100 mls/hr IV . Q10H [facility] Rx#:[id number] Sodium Chloride 0.9% 1, 1000 000 ml @ 999 mls/hr IV . Q1H1M [facility] Rx#:[id number] Sodium Chloride 0.9% 500 500 ml 500 ml @ 999 mls/hr IV .Q31M [facility] Rx#:[id number] Sodium Chloride 0.9% 500 500 ml 500 ml @ 999 mls/hr IV .Q31M [facility] Rx#:[id number] Sodium Chloride 0.9% 500 500 ml 500 ml @ 999 mls/hr IV .Q31M [facility] Rx#:[id number] Oral 1100 Tube Feeding 140 110 110 Other 30 550 Output: Drainage 500 350 300 Abdomen 350 Medial Abdomen 500 300 Urine 793 152 30 Stool 350 0 Other: Voiding Method Indwelling Catheter Indwelling Catheter Indwelling Catheter ABP, PAP, CO, CI - Last Documented Arterial Blood Pressure 112/52 - Exam Physical Exam: Revealed 72-year-old white male on mechanical ventilation, sedated and paralyzed, on propofol, Nimbex, and Dilaudid. Head: Atraumatic, normocephalic. HEENT:[Neck is supple.] [No neck masses.] [No thyromegaly.] [No JVD.] Tracheostomy is intact, dry mucous membranes noted.. Chest: [Symmetrical chest expansion, diminished breath sounds at the bases, no rhonchi and no wheezes. Cardiac Exam: [irregular irregular rhythmNormal S1 and S2, no S3 gallop, no murmur.] Abdomen: [Postsurgical, Soft, nontender, no megaly, no rebound, no guarding, diminished bowel sounds, colostomy seems to be viable with healthy tissue, and some output noted in the colostomy bag. Abdominal incision is dry and clean. Wound VAC is noted. Extremities: [No clubbing, t 1+ bipedal edema, no cyanosis.] Neurological Exam: Cannot be assessed, fully sedated and paralyzed today, Lymphatics: No lymphadenopathy. Skin: No rashes. Psychiatric: Could not be assessed. - Labs CBC & Chem 7: 09/28/18 01:43 09/28/18 01:43 Labs: Abnormal Lab Results - Last 24 Hours (Table) 09/27/18 09/27/18 09/27/18 Range/Units 12:02 17:33 17:34 WBC (3.8-10.6) k/uL RBC (4.30-5.90) m/uL Hgb (13.0-17.5) gm/dL Hct (39.0-53.0) % MCV (80.0-100.0) fL MCH (25.0-35.0) pg MCHC (31.0-37.0) g/dL RDW (11.5-15.5) % Neutrophils # (1.3-7.7) k/uL APTT 43.1 H (22.0-30.0) sec ABG pH 7.17 L* (7.35-7.45) ABG pCO2 67 H (35-45) mmHg ABG pO2 80 L (83-108) mmHg ABG Total CO2 27 H (19-24) mmol/L ABG O2 Saturation 97.5 H (94-97) % Potassium (3.5-5.1) mmol/L Chloride (98-107) mmol/L Carbon Dioxide (22-30) mmol/L BUN (9-20) mg/dL Creatinine (0.66-1.25) mg/dL Glucose (74-99) mg/dL POC Glucose (mg/dL) 233 H (75-99) mg/dL Calcium (8.4-10.2) mg/dL Phosphorus (2.5-4.5) mg/dL 09/27/18 09/27/18 09/27/18 Range/Units 18:19 22:59 23:26 WBC (3.8-10.6) k/uL RBC (4.30-5.90) m/uL Hgb (13.0-17.5) gm/dL Hct (39.0-53.0) % MCV (80.0-100.0) fL MCH (25.0-35.0) pg MCHC (31.0-37.0) g/dL RDW (11.5-15.5) % Neutrophils # (1.3-7.7) k/uL APTT (22.0-30.0) sec ABG pH (7.35-7.45) ABG pCO2 (35-45) mmHg ABG pO2 (83-108) mmHg ABG Total CO2 (19-24) mmol/L ABG O2 Saturation (94-97) % Potassium (3.5-5.1) mmol/L Chloride (98-107) mmol/L Carbon Dioxide (22-30) mmol/L BUN (9-20) mg/dL Creatinine (0.66-1.25) mg/dL Glucose (74-99) mg/dL POC Glucose (mg/dL) 223 H 219 H 247 H (75-99) mg/dL Calcium (8.4-10.2) mg/dL Phosphorus (2.5-4.5) mg/dL 09/28/18 09/28/18 09/28/18 Range/Units 01:43 01:43 01:43 WBC 15.2 H (3.8-10.6) k/uL RBC 4.23 L (4.30-5.90) m/uL Hgb 7.4 L (13.0-17.5) gm/dL Hct 30.6 L (39.0-53.0) % MCV 72.4 L (80.0-100.0) fL MCH 17.4 L (25.0-35.0) pg MCHC 24.0 L (31.0-37.0) g/dL RDW 21.5 H (11.5-15.5) % Neutrophils # 13.5 H (1.3-7.7) k/uL APTT 70.0 H (22.0-30.0) sec ABG pH (7.35-7.45) ABG pCO2 (35-45) mmHg ABG pO2 (83-108) mmHg ABG Total CO2 (19-24) mmol/L ABG O2 Saturation (94-97) % Potassium 5.4 H (3.5-5.1) mmol/L Chloride 108 H (98-107) mmol/L Carbon Dioxide 20 L (22-30) mmol/L BUN 42 H (9-20) mg/dL Creatinine 1.96 H (0.66-1.25) mg/dL Glucose 220 H (74-99) mg/dL POC Glucose (mg/dL) (75-99) mg/dL Calcium 7.4 L (8.4-10.2) mg/dL Phosphorus 6.5 H (2.5-4.5) mg/dL 09/28/18 09/28/18 Range/Units 05:56 07:05 WBC (3.8-10.6) k/uL RBC (4.30-5.90) m/uL Hgb (13.0-17.5) gm/dL Hct (39.0-53.0) % MCV (80.0-100.0) fL MCH (25.0-35.0) pg MCHC (31.0-37.0) g/dL RDW (11.5-15.5) % Neutrophils # (1.3-7.7) k/uL APTT (22.0-30.0) sec ABG pH 7.28 L (7.35-7.45) ABG pCO2 46 H (35-45) mmHg ABG pO2 (83-108) mmHg ABG Total CO2 (19-24) mmol/L ABG O2 Saturation 98.6 H (94-97) % Potassium (3.5-5.1) mmol/L Chloride (98-107) mmol/L Carbon Dioxide (22-30) mmol/L BUN (9-20) mg/dL Creatinine (0.66-1.25) mg/dL Glucose (74-99) mg/dL POC Glucose (mg/dL) 229 H (75-99) mg/dL Calcium (8.4-10.2) mg/dL Phosphorus (2.5-4.5) mg/dL Microbiology - Last 24 Hours (Table) 09/27/18 10:10 Gram Stain - Preliminary Abdomen Wound Culture - Preliminary Gram Neg Bacilli 09/24/18 00:40 Blood Culture - Preliminary Blood No Growth after 96 hours 09/23/18 19:05 Gram Stain - Final Edwin-Harris Body Fluid Culture - Final Staphylococcus epidermidis Escherichia coli 09/27/18 10:10 Anaerobic Culture - Preliminary Abdomen Assessment and Plan Assessment: Impression: 1 perforated gastric ulcer/ischemic colon at the level of splenic fracture with bowel obstruction. Status post exploratory laparotomy, lysis of adhesions, repair of a gastric ulcer, transverse colectomy postoperative day #12 2 septic shock secondary to abdominal sepsis, doubt recurrence of sepsis and septic shock, however based on the clinical change this is definitely suspected. CT of the abdomen and pelvis seems to be reassuring.. 3 acute hypoxic respiratory failure secondary to septic shock and abdominal sepsis. 4 recurrent kidney injury, suspect acute tubular necrosis. However abdominal compartment syndrome is a possibility, and intra-bladder pressures will be measured and addressed accordingly. Patient does have ascites, if pressure is elevated, may consider thoracentesis by interventional radiology. 6 history of paroxysmal atrial fibrillation . Remains on heparin and Cardizem. 7 COPD, presently inactive 8 status post tracheostomy postoperative day #2 9 suspect acute diastolic heart failure,was improving with diuretics, however the patient is now oliguric/anuric 10 failure to wean, multifactorial. 11 diabetes mellitus type 2, on insulin protocol. 12 chronic hypoxic respiratory failure with an oxygen at 2 L per minute nasal cannula on outpatient basis 13 suspect some component of critical illness polyneuropathy. Recommendation: Continue ventilatory support Continue antibiotics, empirically. Continue GI and DVT prophylaxis consult nephrology regarding his sudden deterioration of his renal status.measure bladder pressures. Continue IV fluid as ordered. Continue TPN, patient was started on minimal feeding today via orogastric tube. Continue to monitor daily electrolytes no plans to interrupt sedation today and no plans to assess mental status today because of his worsening clinical status in the last 24 hours. Discussed his condition with family at bedside, Updated on his clinical deterioration, discussed his condition with the surgeon on the case, we'll consult nephrology, and we'll continue to follow. Prognosis is extremely poor and guarded. Critical care time is 45 Time with Patient: Greater than 30
--- NOTE | 2018-09-28 11:36 | P.PN ---
Subjective Progress Note Date: 09/28/18 Principal diagnosis: Atrial fibrillation The patient is a 81-year-old male who is currently admitted after exploratory laparotomy for perforated bowel. He is currently intubated on a ventilator, sedated. Amiodarone drip was started for elevated heart rates, in addition to his Cardizem drip at 10 mg per hour and heparin drip for now persistent atrial fibrillation. He is also known to have a left atrial appendage thrombus. Overnight, he clinically deteriated. His white count elevated and he developed infected drainage via wound vac. His swelling has worsen and his vent settings have increased. He is now medically paralyzed to enhance ventilation. He has become oliguric. GENERAL: Currently sedated, resting comfortably on vent. NECK: Supple without JVD or thyromegaly. LUNGS: Breath sounds clear to auscultation bilaterally. Respiration equal and u nlabored. No wheezes, rales or rhonchi. HEART: Heart rate irregular. Rate controlled. No murmurs, rubs or gallops. S1 and S2 heard. EXTREMITIES: Anasarca worsening. No clubbing or cyanosis. Peripheral pulses intact and strong. Labs: WBC 15.2, hemoglobin 7.4, hematocrit 30.6, platelet 300, sodium 139, potassium 5.4, BUN 42, creatinine 1.96, phosphorus 6.5, magnesium 2.2 Assessment: #1 persistent atrial fibrillation, currently on Cardizem and amiodarone IV #2 status post abdominal surgery, perforated bowel Plan: Continue current regimen and monitoring. Prognosis is guarded. Objective - Vital Signs Vital signs: Vital Signs Temp 98.3 F 09/28/18 09:00 Pulse 92 09/28/18 11:00 Resp 33 H 09/28/18 11:00 BP 135/80 09/28/18 11:00 Pulse Ox 92 L 09/28/18 11:00 Intake & Output 09/27/18 09/28/18 09/28/18 18:59 06:59 18:59 Intake Total 4127.274 2990.429 4472.080 Output Total 1643 502 330 Balance 2484.274 2488.429 4142.080 Weight 154 kg Intake: IV 910 1212 503 Dextrose 5% in Water 1, 275 000 ml @ 25 mls/hr IV . Q24H [facility] Rx#:[id number] Fluconazole in NaCl,Iso- 50 100 Osm 200 mg In Saline 1 100ml.bag @ 100 mls/hr IVPB DAILY [facility] Rx#: [id number] Mvi, Adult No.4 with Vit 385 K 10 ml Trace (Conc-1Ml/ Dose) 1 ml Calcium Gluconate 1 gm Potassium Acetate 40 meq Potassium Phosphate 15 mmol In Amino Acid 5%-D15w 1,000 ml @ 55 mls/hr IV .Q19H2M [facility] Rx#:[id number] Piperacillin-Tazobactam 3 200 100 100 .375 gm In Sodium Chloride 0.9% 100 ml @ 25 mls/hr IVPB Q8HR [facility] Rx# :[id number] Pressure Bag 12 3 Sodium Chloride 0.9% 1, 1100 300 000 ml @ 100 mls/hr IV . Q10H [facility] Rx#:[id number] Intake, IV Titration 3047.274 5563.698 7982.080 Amount Amiodarone 300 mg In 250 Dextrose 5% in Water 250 ml @ 0.5 MG/MIN 25 mls/hr IV .Q10H [facility] Rx#: [id number] Cisatracurium 200 mg In 186.168 Sodium Chloride 0.9% 180 ml @ 1 MCG/KG/MIN 9.03 mls/hr IV .Q22H9M [facility] Rx# :[id number] Diltiazem 125 mg In 122.833 125 Sodium Chloride 0.9% 100 ml @ 5 MG/HR 5 mls/hr IV .Q24H [facility] Rx#:[id number] Heparin Sod,Pork in 0.45% 201.433 298.567 NaCl 25,000 unit In 0.45 % NaCl 1 250ml.bag @ 6.1 UNITS/KG/HR 9.998 mls/hr IV .Q24H [facility] Rx#: [id number] Mvi, Adult No.4 with Vit 55 495 1012.917 K 10 ml Trace (Conc-1Ml/ Dose) 1 ml Calcium Gluconate 1 gm Potassium Acetate 60 meq Magnesium Sulfate gm 1 gm In Amino Acid 5%-D15w 1,000 ml @ 55 mls/hr IV .Q19H9M [facility] Rx#:[id number] Mvi, Adult No.4 with Vit 330 110 110 K 10 ml Trace (Conc-1Ml/ Dose) 1 ml Calcium Gluconate 1 gm Potassium Acetate 60 meq Potassium Phosphate 15 mmol In Amino Acid 5%-D15w 1,000 ml @ 55 mls/hr IV . [id number] [facility] Rx#:[id number] Propofol 1,000 mg In 538.008 203.694 86.163 Empty Bag 1 bag @ Titrate IV .Q0M [facility] Rx#: [id number] Sodium Chloride 0.9% 1, 300 000 ml @ 100 mls/hr IV . Q10H [facility] Rx#:[id number] Sodium Chloride 0.9% 1, 1000 000 ml @ 999 mls/hr IV . Q1H1M [facility] Rx#:[id number] Sodium Chloride 0.9% 500 500 ml 500 ml @ 999 mls/hr IV .Q31M [facility] Rx#:[id number] Sodium Chloride 0.9% 500 500 ml 500 ml @ 999 mls/hr IV .Q31M [facility] Rx#:[id number] Sodium Chloride 0.9% 500 500 ml 500 ml @ 999 mls/hr IV .Q31M [facility] Rx#:[id number] Oral 1100 Tube Feeding 140 110 110 Other 30 550 Output: Drainage 500 350 300 Abdomen 350 Medial Abdomen 500 300 Urine 793 152 30 Stool 350 0 Other: Voiding Method Indwelling Catheter Indwelling Catheter Indwelling Catheter ABP, PAP, CO, CI - Last Documented Arterial Blood Pressure 112/52 - Labs CBC & Chem 7: 09/28/18 01:43 09/28/18 01:43 Labs: Abnormal Lab Results - Last 24 Hours (Table) 09/27/18 09/27/18 09/27/18 Range/Units 12:02 17:33 17:34 WBC (3.8-10.6) k/uL RBC (4.30-5.90) m/uL Hgb (13.0-17.5) gm/dL Hct (39.0-53.0) % MCV (80.0-100.0) fL MCH (25.0-35.0) pg MCHC (31.0-37.0) g/dL RDW (11.5-15.5) % Neutrophils # (1.3-7.7) k/uL APTT 43.1 H (22.0-30.0) sec ABG pH 7.17 L* (7.35-7.45) ABG pCO2 67 H (35-45) mmHg ABG pO2 80 L (83-108) mmHg ABG Total CO2 27 H (19-24) mmol/L ABG O2 Saturation 97.5 H (94-97) % Potassium (3.5-5.1) mmol/L Chloride (98-107) mmol/L Carbon Dioxide (22-30) mmol/L BUN (9-20) mg/dL Creatinine (0.66-1.25) mg/dL Glucose (74-99) mg/dL POC Glucose (mg/dL) 233 H (75-99) mg/dL Calcium (8.4-10.2) mg/dL Phosphorus (2.5-4.5) mg/dL 09/27/18 09/27/18 09/27/18 Range/Units 18:19 22:59 23:26 WBC (3.8-10.6) k/uL RBC (4.30-5.90) m/uL Hgb (13.0-17.5) gm/dL Hct (39.0-53.0) % MCV (80.0-100.0) fL MCH (25.0-35.0) pg MCHC (31.0-37.0) g/dL RDW (11.5-15.5) % Neutrophils # (1.3-7.7) k/uL APTT (22.0-30.0) sec ABG pH (7.35-7.45) ABG pCO2 (35-45) mmHg ABG pO2 (83-108) mmHg ABG Total CO2 (19-24) mmol/L ABG O2 Saturation (94-97) % Potassium (3.5-5.1) mmol/L Chloride (98-107) mmol/L Carbon Dioxide (22-30) mmol/L BUN (9-20) mg/dL Creatinine (0.66-1.25) mg/dL Glucose (74-99) mg/dL POC Glucose (mg/dL) 223 H 219 H 247 H (75-99) mg/dL Calcium (8.4-10.2) mg/dL Phosphorus (2.5-4.5) mg/dL 09/28/18 09/28/18 09/28/18 Range/Units 01:43 01:43 01:43 WBC 15.2 H (3.8-10.6) k/uL RBC 4.23 L (4.30-5.90) m/uL Hgb 7.4 L (13.0-17.5) gm/dL Hct 30.6 L (39.0-53.0) % MCV 72.4 L (80.0-100.0) fL MCH 17.4 L (25.0-35.0) pg MCHC 24.0 L (31.0-37.0) g/dL RDW 21.5 H (11.5-15.5) % Neutrophils # 13.5 H (1.3-7.7) k/uL APTT 70.0 H (22.0-30.0) sec ABG pH (7.35-7.45) ABG pCO2 (35-45) mmHg ABG pO2 (83-108) mmHg ABG Total CO2 (19-24) mmol/L ABG O2 Saturation (94-97) % Potassium 5.4 H (3.5-5.1) mmol/L Chloride 108 H (98-107) mmol/L Carbon Dioxide 20 L (22-30) mmol/L BUN 42 H (9-20) mg/dL Creatinine 1.96 H (0.66-1.25) mg/dL Glucose 220 H (74-99) mg/dL POC Glucose (mg/dL) (75-99) mg/dL Calcium 7.4 L (8.4-10.2) mg/dL Phosphorus 6.5 H (2.5-4.5) mg/dL 09/28/18 09/28/18 Range/Units 05:56 07:05 WBC (3.8-10.6) k/uL RBC (4.30-5.90) m/uL Hgb (13.0-17.5) gm/dL Hct (39.0-53.0) % MCV (80.0-100.0) fL MCH (25.0-35.0) pg MCHC (31.0-37.0) g/dL RDW (11.5-15.5) % Neutrophils # (1.3-7.7) k/uL APTT (22.0-30.0) sec ABG pH 7.28 L (7.35-7.45) ABG pCO2 46 H (35-45) mmHg ABG pO2 (83-108) mmHg ABG Total CO2 (19-24) mmol/L ABG O2 Saturation 98.6 H (94-97) % Potassium (3.5-5.1) mmol/L Chloride (98-107) mmol/L Carbon Dioxide (22-30) mmol/L BUN (9-20) mg/dL Creatinine (0.66-1.25) mg/dL Glucose (74-99) mg/dL POC Glucose (mg/dL) 229 H (75-99) mg/dL Calcium (8.4-10.2) mg/dL Phosphorus (2.5-4.5) mg/dL Microbiology - Last 24 Hours (Table) 09/27/18 10:10 Gram Stain - Preliminary Abdomen Wound Culture - Preliminary Gram Neg Bacilli 09/24/18 00:40 Blood Culture - Preliminary Blood No Growth after 96 hours 09/23/18 19:05 Gram Stain - Final [facility] Body Fluid Culture - Final Staphylococcus epidermidis Escherichia coli 09/27/18 10:10 Anaerobic Culture - Preliminary Abdomen
[2018-09-28] MEDS: HYDROmorphone 1 MG/ML 1 ML SYRINGE IVP SCH ×5 (11:40→23:22)
[2018-09-28 12:08] LABS: Glucose,Whole Blood 229 mg/dL (75-99)
--- NOTE | 2018-09-28 15:14 | P.PN ---
Subjective Progress Note Date: 09/28/18 This is a 72-year-old male patient of Dr. Cevallos with past history of chronic hypoxic respiratory failure on home O2 obstructive sleep apnea on CPAP, paroxysmal atrial fibrillation, chronic diastolic heart failure, severe COPD, morbid obesity with BMI of 47, hypertension hypertensive cardiovascular disease, mild intermittent asthma, hyperlipidemia, gastroesophageal reflux disease, diabetes mellitus type 2, cellulitis of the abdominal wall. Patient was recently hospitalized and discharged home on September 12 and treated for acute diastolic heart failure, atrial flutter/atrial fibrillation with rapid ventricular response status post MIKE which found a small atrial appendage thrombus. The patient was stabilized and discharged home in stable condition and had been started on amiodarone, eliquis, Aldactone, prednisone and Augmentin. Patient presented to [facility] emergency center for evaluation. He was afebrile, heart rate 130s, blood pressure 119/79, pulse ox 95%. White count was 5.9, hemoglobin 10.6, platelet count 4-72. Sodium 133, potassium 5.4, chloride 96, CO2 20, BUN 36 and creatinine 1.6, blood sugar 178. CAT scan of the abdomen and pelvis revealed pneumoperitoneum. Bowel distention. Bowel ischemia not excluded. No clear obstruction. Findings may be due to ileus. Patient was provided IV fluids, pain medication and Zosyn patient was seen by Dr. De Leon in the emergency center and taken to the OR found to have a perforated gastric ulcer, ischemic colon at the site of splenic flexure of the bowel obstruction. Patient underwent exploratory laparotomy, lysis of adhesions, decompression of the colon and small bowel, transverse colectomy and takedown of splenic flexure and repair of a gastric ulcer. Patient was then transferred to the intensive care unit and followed by Dr. Red. He is status post greater than 8 L of IV fluid and on norepinephrine and subsequent started on vasopressin. Urine output has been marginal patient remains intubated and on mechanical ventilation with tidal volume 550, FiO2 of 50% and PEEP of 5. The patient is on sedation. 09/18: Patient remains in intensive care unit intubated and on mechanical vent ilation with tidal volume 550, FiO2 50, PEEP 5. NG tube with black drainage. He is on 22 mics of levo fed and 0.03 vasopressin. Patient was started on amiodarone due to continued A. fib with RVR. Heart rate is in the 140s, blood pressure systolic 99. A.m. lab work white count 9.6, hemoglobin 8.5, platelet count 368. Sodium 136, potassium 4.9, chloride 108, CO2 18, BUN 39 creatinine 1.81. Blood sugars are running between 141 and 161. Urine culture is in progress and blood culture is no growth at [address] Benedict is recommended continuing Zosyn and Diflucan. Son is at bedside and all questions have been answered. 09/19: Patient remains in the intensive care unit intubated and on mechanical ventilation with tidal volume 550, FiO2 40 and PEEP of 5. Norepinephrine is now down to 5 mics and minimal on vasopressin. Urine output has been more than adequate. He has been afebrile. He is continued on sedation with propofol. A sedation holiday was attempted today but patient became tachypneic. Patient is back on sedation with plan for tomorrow for sedation holiday tomorrow. Patient has had output from colostomy and passing gas and colostomy. Decreased output from NG tube and from CHAVEZ drain. WBC 8.6, hemoglobin 7.8. He has been afebrile, heart rate 99, blood pressure 90/63. TPN has been started. Amiodarone drip to be discontinued. 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 09/20 Patient remains in ICU, currently nothing by mouth, CHAVEZ drain has drained ov er 2 L in 24 hours, patient has been off pressors, urine output is normal, patient is still on TPN, patient still has abdominal discomfort, otherwise no chest pain no shortness of breath, no palpitations. Hemoglobin currently at 7.4 from an admitting hemoglobin of 9.4, iron studies to be done, agent has initial myelocytes on admission, creatinine 1.02 from 1.2, surgical incision is dry, there is stool output in the colostomy bag, patient remains on mechanical ventilator, unchanged and settings. Followed closely by pulmonary medicine, Cardizem drip was initiated for atrial fibrillation. Attempt to be made with weaning ventilatory support in a.m. : Postop day #5, he was given sedation holiday today, and was able to follow verbal commands, unable to wean today secondary to parameters from Dr. Red, patient went back to assist control mode of ventilation, Lasix was given 401 dose for CHF, pulmonary edema, blood pressure remains stable, negative balance of 1.3 L, urine output is good, has decreased output on the CHAVEZ drain, small amount of mucus stools today, still diminished bowel sounds currently nothing by mouth, general surgery following closely, 09/22: Patient remains intubated and on mechanical ventilation with tidal volume 550, FiO2 40, PEEP 5. Patient failed weaning attempt this morning. Patient is off vasopressors. He has been afebrile, heart rate 108, blood pressure 116/57. Repeat lab work reveals white count of 8.5, hemoglobin 7.8, platelet count 372. Sodium is 150, potassium 3.9, chloride 122, CO2 20, BUN 29 creatinine 0.92. Blood sugars run between 160 08/[birth year]/1976. Phosphorus 3.4. Magnesium 2.4. Repeat chest x-ray this morning reveals persistent bilateral infiltrate and pleural effusion correlate for heart failure. Patient is maintained on Cardizem drip started over the weekend by butcher. The patient is also continued on TPN. No plan for tube feedings until extubated. Patient does have a liquid stool in ostomy. Urine output has been adequate. CHAVEZ drain remains in place. Consult for cardiology added for atrial fibrillation. 09/23: Repeat chest x-ray shows diffuse pleuroparenchymal changes are stable correlate for diffuse pneumonia versus heart failure. Chest ultrasound shows small left pleural effusion. Cardiology is following for atrial fibrillation. Patient is maintained on IV Cardizem and heparin. Blood pressure is currently controlled. Heart rate is also controlled. The temperature max 100.7, heart rate 98, blood pressure 126/83, pulse ox 93%. We have ordered pancultures including blood culture, sputum, urine, CHAVEZ drain cultures to be obtained. Patient is continued on sedation, intubation and mechanical ventilation. Tidal volume FiO2 550, FiO2 40, PEEP of 5. Repeat lab work reveals white count of 9.4, hemoglobin 7.6, count 372. Sodium 151, potassium 3.4, chloride 119, CO2 24, creatinine 0.94, BUN 27. Blood sugars running between 170 and 182. General surgery planning for wound VAC to the abdominal incision. Patient is now on IV Lasix [address] Mendoza is concern for evolving ARDS. Anticipate probable trach and PEG tube placement by the end of the week. 09/24: The patient remains intubated and on mechanical ventilation with tidal volume 550, FiO2 50%, PEEP 5. Patient remains on sedation. No low-grade fevers this morning. 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 Patient remains on Cardizem drip and heparin drip. Blood pressure is currently stable. Lasix is at 40 mg IV every 12 hours with noted decrease edema. Patient has good urine output, positive stool output. Patient has been started on Solu-Cortef. 09/25: Patient remains intubated and on mechanical ventilation with tidal volume 550, FiO2 40, PEEP 5. He is on norepinephrine. Patient is scheduled for trach and PEG tube tomorrow. NG tube is in place to suction. He still noted to have generalized anasarca and now hydrocele on the scrotum. Patient has been afebrile, heart rate 88, blood pressure 117/68. Repeat lab work reveals hemoglobin 7.5, WBC 9.4, hemoglobin 323. Sodium 146, potassium 3.6, chloride 114, CO2 24, BUN 26, creatinine 0.82. Blood sugars in the low 200s. Patient will be started on Levemir 6 units daily. 09/26: Patient remains in the intensive care unit, intubated and on mechanical ventilation with a 5 O2 of 40% and PEEP of 5. He is scheduled for PEG tube and trach placement today. Chest x-ray reveals diffuse pleuroparenchymal changes are stable and correlate for pneumonia versus heart failure. Patient remains on Cardizem and heparin drip for atrial fibrillation, controlled rate. The patient also continued on full, soft and Zosyn. Culture from CHAVEZ drain is positive for Staphylococcus epidermidis and gram-negative bacilli. Lasix currently at 40 mg IV every 8 hours and Solu-Cortef 50 mg IV every 12 hours. A blood sugars remain elevated and Levemir will be increased to 10 units. CHAVEZ drain was scant amount of drainage. Gastric tube remains in place. Wound VAC for abdominal wound. 09/27: Patient had trach placed yesterday but PEG tube was unsuccessful. He remains on mechanical ventilation with tidal volume 550, FiO2 45 and PEEP of 5. NG tube is in place. Patient is on TPN. He remains on Cardizem drip and to resume heparin drip later today. He is currently off sedation. Temperature max 100.4. Heart rate 150 with atrial fibrillation, respirations 26, blood pressure 95/61, pulse ox 95%. WBC 12.8, hemoglobin 8.2, platelet count 292. Sodium 142, potassium 4.2, chloride 108, CO2 23, BUN 20 creatinine 1.04. Blood sugars are r unning between 184 and 233. Magnesium 2.1 phosphorus 4.8. Today, cardiology has started the patient on amiodarone drip for rate control. Levemir will be increased 12 units daily. Repeat chest x-ray reveals no significant interval change. 09/28: Yesterday, patient became tachypneic and desaturated require going back on levo fed which is currently at 30 mics. Patient did not have any urine output or minimal output. He was started on amiodarone yesterday morning and heart rate decreased around 2 PM. Patient has received a total of 2500, rales fluid bolus. Lasix 1 dose was given last evening to 40 mg and he scheduled for 80 mg this morning. We will plan to start him on 80 mg every 12 hours. Patient was also started on Nimbex. CAT scan of the abdomen was done which revealed interval development of moderate bilateral pleural effusions with associated atelectasis or consolidation. Cardiomegaly, hepatomegaly. Ascites within the abdomen without definite abscess formation. Stable wedge compression fracture of T12. The patient's nurse relates that they did see a small amount of pus at the wound site and culture was obtained which is in progress. Patient is continued on amiodarone, Cardizem drip and heparin drip for atrial fibrillation. He has continued also on TPN. Temperature max in past 24 hours 100.4. Heart rate is currently 88, blood pressure 115/72. WBC 15.2, hemoglobin 7.4, platelet count 300. Sodium 139, potassium 5.4, chloride 108, BUN 42 and creatinine 1.96. Blood sugars in the 200s. Levemir will be increased to 15 units. Objective - Vital Signs Vital signs: Vital Signs Temp 99 F 09/28/18 04:00 Pulse 87 09/28/18 07:10 Resp 32 H 09/28/18 07:00 BP 103/63 09/28/18 07:00 Pulse Ox 97 09/28/18 07:00 Intake & Output 09/27/18 09/28/18 09/28/18 18:59 06:59 18:59 Intake Total 4127.274 2990.429 1160.952 Output Total 1643 502 10 Balance 2484.274 2488.429 1150.952 Weight 154 kg Intake: IV 910 1212 103 Dextrose 5% in Water 1, 275 000 ml @ 25 mls/hr IV . Q24H [facility] Rx#:[id number] Fluconazole in NaCl,Iso- 50 Osm 200 mg In Saline 1 100ml.bag @ 100 mls/hr IVPB DAILY [facility] Rx#: [id number] Mvi, Adult No.4 with Vit 385 K 10 ml Trace (Conc-1Ml/ Dose) 1 ml Calcium Gluconate 1 gm Potassium Acetate 40 meq Potassium Phosphate 15 mmol In Amino Acid 5%-D15w 1,000 ml @ 55 mls/hr IV .Q19H2M [facility] Rx#:[id number] Piperacillin-Tazobactam 3 200 100 .375 gm In Sodium Chloride 0.9% 100 ml @ 25 mls/hr IVPB Q8HR [facility] Rx# :[id number] Pressure Bag 12 3 Sodium Chloride 0.9% 1, 1100 100 000 ml @ 100 mls/hr IV . Q10H [facility] Rx#:[id number] Intake, IV Titration 3047.274 9815.532 5740.952 Amount Amiodarone 300 mg In 250 Dextrose 5% in Water 250 ml @ 0.5 MG/MIN 25 mls/hr IV .Q10H [facility] Rx#: [id number] Cisatracurium 200 mg In 186.168 Sodium Chloride 0.9% 180 ml @ 1 MCG/KG/MIN 9.03 mls/hr IV .Q22H9M [facility] Rx# :[id number] Diltiazem 125 mg In 122.833 125 Sodium Chloride 0.9% 100 ml @ 5 MG/HR 5 mls/hr IV .Q24H [facility] Rx#:[id number] Heparin Sod,Pork in 0.45% 201.433 298.567 NaCl 25,000 unit In 0.45 % NaCl 1 250ml.bag @ 6.1 UNITS/KG/HR 9.998 mls/hr IV .Q24H [facility] Rx#: [id number] Mvi, Adult No.4 with Vit 55 495 1012.917 K 10 ml Trace (Conc-1Ml/ Dose) 1 ml Calcium Gluconate 1 gm Potassium Acetate 60 meq Magnesium Sulfate gm 1 gm In Amino Acid 5%-D15w 1,000 ml @ 55 mls/hr IV .Q19H9M [facility] Rx#:[id number] Mvi, Adult No.4 with Vit 330 110 K 10 ml Trace (Conc-1Ml/ Dose) 1 ml Calcium Gluconate 1 gm Potassium Acetate 60 meq Potassium Phosphate 15 mmol In Amino Acid 5%-D15w 1,000 ml @ 55 mls/hr IV . [id number] [facility] Rx#:[id number] Propofol 1,000 mg In 538.008 203.694 35.035 Empty Bag 1 bag @ Titrate IV .Q0M [facility] Rx#: [id number] Sodium Chloride 0.9% 1, 300 000 ml @ 100 mls/hr IV . Q10H [facility] Rx#:[id number] Sodium Chloride 0.9% 500 500 ml 500 ml @ 999 mls/hr IV .Q31M [facility] Rx#:[id number] Sodium Chloride 0.9% 500 500 ml 500 ml @ 999 mls/hr IV .Q31M [facility] Rx#:[id number] Sodium Chloride 0.9% 500 500 ml 500 ml @ 999 mls/hr IV .Q31M [facility] Rx#:[id number] Tube Feeding 140 110 10 Other 30 Output: Drainage 500 350 Abdomen 350 Medial Abdomen 500 Urine 793 152 10 Stool 350 Other: Voiding Method Indwelling Catheter Indwelling Catheter ABP, PAP, CO, CI - Last Documented Arterial Blood Pressure 112/52 - Exam Review of Systems ROS unobtainable: due to endotracheal tube Gen: This is a 72-year-old morbidly obese male. He is in the intensive care unit. Patient is intubated and on mechanical ventilation. Patient appears to be comfortable. HEENT: Head is atraumatic, normocephalic. Pupils equal, round. Sclerae is anicteric. NG tube in place to suction. Trach in place connected to mechanical ventilation. NECK: Supple. No JVD. No lymphadenopathy. No thyromegaly. LUNGS: Diminished bilaterally with scattered rhonchi. Patient appears comfortable. HEART: Irregular rate and rhythm. Systolic murmur. 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 ABDOMEN: Soft. Large. Normal bowel sounds are present. Colostomy in the left upper quadrant with stool output. There is a large mid abdominal incision with wound VAC. CHAVEZ drain. Foster catheter draining clear urine. EXTREMITIES: anasarca and 1+ bilateral pedal edema. Midline to right upper arm. NEUROLOGICAL: Patient is sedated. - Labs CBC & Chem 7: 09/28/18 01:43 09/28/18 01:43 Labs: Abnormal Lab Results - Last 24 Hours (Table) 09/27/18 09/27/18 09/27/18 Range/Units 04:30 08:16 12:02 WBC 12.8 H (3.8-10.6) k/uL RBC 4.29 L (4.30-5.90) m/uL Hgb 8.2 L (13.0-17.5) gm/dL Hct 31.6 L (39.0-53.0) % MCV 73.7 L D (80.0-100.0) fL MCH 19.1 L (25.0-35.0) pg MCHC 26.0 L (31.0-37.0) g/dL RDW 21.1 H (11.5-15.5) % Neutrophils # 11.2 H (1.3-7.7) k/uL APTT (22.0-30.0) sec ABG pH 7.34 L (7.35-7.45) ABG pCO2 48 H (35-45) mmHg ABG pO2 (83-108) mmHg ABG HCO3 26 H (21-25) mmol/L ABG Total CO2 28 H (19-24) mmol/L ABG O2 Saturation 98.3 H (94-97) % Potassium (3.5-5.1) mmol/L Chloride (98-107) mmol/L Carbon Dioxide (22-30) mmol/L BUN (9-20) mg/dL Creatinine (0.66-1.25) mg/dL Glucose (74-99) mg/dL POC Glucose (mg/dL) 233 H (75-99) mg/dL Calcium (8.4-10.2) mg/dL Phosphorus (2.5-4.5) mg/dL 09/27/18 09/27/18 09/27/18 Range/Units 17:33 17:34 18:19 WBC (3.8-10.6) k/uL RBC (4.30-5.90) m/uL Hgb (13.0-17.5) gm/dL Hct (39.0-53.0) % MCV (80.0-100.0) fL MCH (25.0-35.0) pg MCHC (31.0-37.0) g/dL RDW (11.5-15.5) % Neutrophils # (1.3-7.7) k/uL APTT 43.1 H (22.0-30.0) sec ABG pH 7.17 L* (7.35-7.45) ABG pCO2 67 H (35-45) mmHg ABG pO2 80 L (83-108) mmHg ABG HCO3 (21-25) mmol/L ABG Total CO2 27 H (19-24) mmol/L ABG O2 Saturation 97.5 H (94-97) % Potassium (3.5-5.1) mmol/L Chloride (98-107) mmol/L Carbon Dioxide (22-30) mmol/L BUN (9-20) mg/dL Creatinine (0.66-1.25) mg/dL Glucose (74-99) mg/dL POC Glucose (mg/dL) 223 H (75-99) mg/dL Calcium (8.4-10.2) mg/dL Phosphorus (2.5-4.5) mg/dL 09/27/18 09/27/18 09/28/18 Range/Units 22:59 23:26 01:43 WBC (3.8-10.6) k/uL RBC (4.30-5.90) m/uL Hgb (13.0-17.5) gm/dL Hct (39.0-53.0) % MCV (80.0-100.0) fL MCH (25.0-35.0) pg MCHC (31.0-37.0) g/dL RDW (11.5-15.5) % Neutrophils # (1.3-7.7) k/uL APTT (22.0-30.0) sec ABG pH (7.35-7.45) ABG pCO2 (35-45) mmHg ABG pO2 (83-108) mmHg ABG HCO3 (21-25) mmol/L ABG Total CO2 (19-24) mmol/L ABG O2 Saturation (94-97) % Potassium 5.4 H (3.5-5.1) mmol/L Chloride 108 H (98-107) mmol/L Carbon Dioxide 20 L (22-30) mmol/L BUN 42 H (9-20) mg/dL Creatinine 1.96 H (0.66-1.25) mg/dL Glucose 220 H (74-99) mg/dL POC Glucose (mg/dL) 219 H 247 H (75-99) mg/dL Calcium 7.4 L (8.4-10.2) mg/dL Phosphorus 6.5 H (2.5-4.5) mg/dL 09/28/18 09/28/18 09/28/18 Range/Units 01:43 01:43 05:56 WBC 15.2 H (3.8-10.6) k/uL RBC 4.23 L (4.30-5.90) m/uL Hgb 7.4 L (13.0-17.5) gm/dL Hct 30.6 L (39.0-53.0) % MCV 72.4 L (80.0-100.0) fL MCH 17.4 L (25.0-35.0) pg MCHC 24.0 L (31.0-37.0) g/dL RDW 21.5 H (11.5-15.5) % Neutrophils # 13.5 H (1.3-7.7) k/uL APTT 70.0 H (22.0-30.0) sec ABG pH (7.35-7.45) ABG pCO2 (35-45) mmHg ABG pO2 (83-108) mmHg ABG HCO3 (21-25) mmol/L ABG Total CO2 (19-24) mmol/L ABG O2 Saturation (94-97) % Potassium (3.5-5.1) mmol/L Chloride (98-107) mmol/L Carbon Dioxide (22-30) mmol/L BUN (9-20) mg/dL Creatinine (0.66-1.25) mg/dL Glucose (74-99) mg/dL POC Glucose (mg/dL) 229 H (75-99) mg/dL Calcium (8.4-10.2) mg/dL Phosphorus (2.5-4.5) mg/dL 09/28/18 Range/Units 07:05 WBC (3.8-10.6) k/uL RBC (4.30-5.90) m/uL Hgb (13.0-17.5) gm/dL Hct (39.0-53.0) % MCV (80.0-100.0) fL MCH (25.0-35.0) pg MCHC (31.0-37.0) g/dL RDW (11.5-15.5) % Neutrophils # (1.3-7.7) k/uL APTT (22.0-30.0) sec ABG pH 7.28 L (7.35-7.45) ABG pCO2 46 H (35-45) mmHg ABG pO2 (83-108) mmHg ABG HCO3 (21-25) mmol/L ABG Total CO2 (19-24) mmol/L ABG O2 Saturation 98.6 H (94-97) % Potassium (3.5-5.1) mmol/L Chloride (98-107) mmol/L Carbon Dioxide (22-30) mmol/L BUN (9-20) mg/dL Creatinine (0.66-1.25) mg/dL Glucose (74-99) mg/dL POC Glucose (mg/dL) (75-99) mg/dL Calcium (8.4-10.2) mg/dL Phosphorus (2.5-4.5) mg/dL Microbiology - Last 24 Hours (Table) 09/27/18 10:10 Gram Stain - Preliminary Abdomen Wound Culture - Preliminary 09/24/18 00:40 Blood Culture - Preliminary Blood No Growth after 96 hours 09/23/18 19:05 Gram Stain - Final Edwin-Harris Body Fluid Culture - Final Staphylococcus epidermidis Escherichia coli 09/27/18 10:10 Anaerobic Culture - Preliminary Abdomen Assessment and Plan Plan: 1. Abdominal pain secondary to perforated gastric ulcer, ischemic colon at the splenic flexure with bowel obstruction status post exploratory laparotomy, lysis of adhesions, repair of gastric ulcer, transverse colectomy and takedown of the splenic flexure. Continue fluconazole, Zosyn IV. Dr. Benedict consult appreciated. The patient has been seen by ostomy nurse. Trach and PEG tube today. 2. Hypovolemic shock status post IV fluid resuscitation and vasopressors. Patient has been resumed on vasopressors, Nimbex started, patient is status post 2500 ML's fluid bolus. 3. Acute on chronic hypoxic respiratory failure secondary to above. Patient is currently intubated and on mechanical ventilation. Patient is managed by Dr. Mendoza. Dr. Mendoza concern for ARDS. Trach placement today. 4. Acute kidney injury secondary to shock. Continue to monitor closely 5. Lactic acidosis. 6. Paroxysmal atrial fibrillation with A. fib RVR. Eliquis is on hold. Patient is status post Kcentra for reversal of eliquis. Continue Cardizem drip and Amiodarone drip has been ordered by cardiology. Continue heparin drip. Rate is currently controlled 7. Acute and chronic diastolic heart failure and generalized anasarca. IV Lasix 40 mg every 8 hours. Patient is status post albumin. 8. Severe COPD, stable. 9. Obstructive sleep apnea with CPAP, noncompliance. 10. Mild intermittent asthma, stable. 11. Hyperlipidemia. 12. Gastroesophageal reflux disease and GI prophylaxis. Continue Protonix 40 mg IV daily. 13. Diabetes mellitus type 2 uncontrolled with hyperglycemia secondary to steroids. Continue NovoLog scale every 6 hours. Hold metformin and Januvia. Levemir increased 12 units daily. 14. Severe protein calorie malnutrition due to nothing by mouth status. Patient on TPN. 15. Left atrial appendage thrombus found on MIKE during last admission. 16. Hypernatremia and hyperchloremia. 17. Adrenal insufficiency secondary to illness. Patient has been started on hydrocortef 50 mg IV every 12 hours. Prognosis poor. Discharge plan: [facility] next week. Impression and plan of care have been directed as dictated by the signing physician. Loreta Medellin nurse practitioner acting as scribe for signing physician.
[2018-09-28 18:22] LABS: Glucose,Whole Blood 219 mg/dL (75-99)
[2018-09-28] MEDS: FUROSEMIDE 10 MG/ML 10 ML VIAL IV SCH (20:08)
[2018-09-28 23:22] LABS: Glucose,Whole Blood 269 mg/dL (75-99)
--- NOTE | 2018-09-28 23:53 | PN ---
PROGRESS NOTE DATE OF SERVICE: 09/28/2018. REASON FOR FOLLOWUP: Abdominal sepsis from perforated peptic ulcer disease and ischemic splenic flexure. INTERVAL HISTORY: The patient has been running low grade fever of 100.4-100.3 for the weekend. The patient also requiring low-dose pressors in form of Levophed. The patient's FIO2 is currently stable. The patient did have a right arm midline. Tolerating his tube feeds. No significant diarrhea reported by the nursing staff. EXAM: Blood pressure 101/66, pulse of 78, temperature 98. He is 93% on 60% FiO2. General description is an elderly male lying in bed in no distress. HEENT EXAMINATION: Pallor. LUNGS: Unlabored breathing with decreased breath sounds in the bases. No wheeze. Heart S1, S2. Regular rate. Abdomen soft, no tenderness. LABS: Hemoglobin 7.4, white count 15.2 with a BUN of 42, creatinine 1.96. DIAGNOSTIC IMPRESSION AND PLAN: Patient with abdominal sepsis from the perforated peptic ulcer disease, status post laparotomy and diverting colostomy. Failed to be extubated. The patient is status post trach, currently with a new fever and white count jumped. Source could have been the right IJ with the patient has since the surgery on the , more than 10 days, RN advised to remove the central line, sent for the culture. Blood cultures will be obtained. We will switch over the Zosyn to meropenem as the gram-negative seen in the abdominal cultures and add daptomycin to cover for gram-positive. The patient with borderline kidney function, high risk of Vancomycin nephrotoxcicty. Overall prognosis remains to be guarded. MMODL / IJN: [id number] / MTDD
[2018-09-29] MEDS: NOREPINEPHRINE 8 MG in SODIUM CHLORIDE 0.9% 250 ML IV SCH (00:46)
[2018-09-29] MEDS: PROPOFOL 1,000 MG in EMPTY BAG 1 BAG IV SCH ×5 (00:46→16:36)
[2018-09-29] MEDS: CISATRACURIUM 200 MG in SODIUM CHLORIDE 0.9% 180 ML IV SCH ×2 (00:48→11:08)
[2018-09-29] MEDS: SODIUM CHLORIDE 0.9% 1,000 ML IV SCH ×2 (00:49→10:19)
[2018-09-29] MEDS: MEROPENEM 1 GM in SODIUM CHLORIDE 0.9% 100 ML IVPB SCH ×2 (00:56→15:12)
[2018-09-29] MEDS ORDERED: MVI, ADULT NO.4 WITH VIT K 10 ML, TRACE (CONC-1ML/DOSE) 1 ML, CALCIUM GLUCONATE 1 GM, P... IV SCH ×7 (02:00)
[2018-09-29] MEDS: IPRATROPIUM-ALBUTEROL 3 ML NEB INHALATION SCH ×6 (03:14→23:03)
[2018-09-29] MEDS: HYDROmorphone 1 MG/ML 1 ML SYRINGE IVP SCH ×5 (03:39→20:51)
[2018-09-29 04:58] LABS: ABG Base Excess -10.8 mmol/L; ABG HCO3 17 mmol/L (21-25); ABG Oxygen Saturation 89.5 % (94-97); ABG PCO2 40 mmHg (35-45); ABG PH 7.23 (7.35-7.45); ABG TCO2 18 mmol/L (19-24); Allen Test Performed? Yes
[2018-09-29 05:00] LABS: Anisocytosis Moderate; HCT 29.8 % (39.0-53.0); HGB 7.9 gm/dL (13.0-17.5); Hypochromasia Marked; MCH 19.7 pg (25.0-35.0); MCHC 26.5 g/dL (31.0-37.0); MCV 74.3 fL (80.0-100.0); Mean Platelet Volume 7.6; Microcytosis Marked; Platelet Count 362 k/uL (150-450); Poikilocytosis Moderate
[2018-09-29 05:02] LABS: ABG PO2 47 mmHg (83-108)
[2018-09-29 05:15] LABS: Calcium 7.3 mg/dL (8.4-10.2); Magnesium 2.2 mg/dL (1.6-2.3); Phosphorus 7.5 mg/dL (2.5-4.5); Potassium 5.4 mmol/L (3.5-5.1)
[2018-09-29 05:28] LABS: Lymphocytes # (M) 0.89 k/uL (1.0-4.8); Monocytes # (M) 1.14 k/uL (0-1.0); Neutrophils % (M) 84 %; Nucleated Red Blood Cells 6 /100 WBC (0-0); Total Cells Counted 100; WBC 12.7 k/uL (3.8-10.6)
[2018-09-29 05:29] LABS: Polychromasia Present
[2018-09-29 06:11] LABS: Glucose,Whole Blood 295 mg/dL (75-99)
[2018-09-29] MEDS: INSULIN ASPART (NovoLOG) 100 UNIT/ML VIAL SQ SCH (06:31)
[2018-09-29] MEDS ORDERED: INSULIN DETEMIR (LEVEMIR) 100 UNIT/ML SYR SQ SCH (07:00)
--- NOTE | 2018-09-29 07:32 | P.PN ---
Subjective Progress Note Date: 09/29/18 Principal diagnosis: Atrial fibrillation/persistent This is a 72-year-old gentleman with a past medical history significant for morbid obesity, chronic atrial fibrillation, chronic diastolic congestive heart failure, as well as multiple comorbid conditions, who was admitted to the hospital with perforated peptic ulcer and he underwent exploratory laparotomy. We get involved in his care for the management of atrial fibrillation. On follow-up with the patient today, September 292018, the patient continues to be in atrial fibrillation with relatively controlled heart rate on the current medical regimen including Cardizem IV. The creatinine seems to be worse. The hemoglobin seems to be stable. He is on heparin drip for anticoagulation. Hemodynamically, the patient just got off the norepinephrine this morning and the pressure continues to be marginally low. The chest x-ray continues to show findings consistent with CHF. Currently he is on Lasix IV. Objective - Vital Signs Vital signs: Vital Signs Temp 98.1 F 09/29/18 04:00 Pulse 86 09/29/18 07:00 Resp 34 H 09/29/18 07:00 BP 101/62 09/29/18 07:00 Pulse Ox 96 09/29/18 07:00 Intake & Output 09/28/18 09/29/18 09/29/18 18:59 06:59 18:59 Intake Total 6815.842 2751.495 110 Output Total 1255 2220 260 Balance 5560.842 531.495 -150 Weight 158.7 kg Intake: IV 1403 1775 100 Cisatracurium 200 mg In 200 Sodium Chloride 0.9% 180 ml @ 1 MCG/KG/MIN 9.03 mls/hr IV .Q22H9M [facility] Rx# :[id number] Fluconazole in NaCl,Iso- 100 Osm 200 mg In Saline 1 100ml.bag @ 100 mls/hr IVPB DAILY [facility] Rx#: [id number] Meropenem 1 gm In Sodium 100 Chloride 0.9% 100 ml @ 200 mls/hr IVPB Q12H [facility] Rx#:[id number] Mvi, Adult No.4 with Vit 275 K 10 ml Trace (Conc-1Ml/ Dose) 1 ml Calcium Gluconate 1 gm Potassium Acetate 20 meq Sodium Acetate 20 meq Magnesium Sulfate gm 1 gm In Amino Acid 5%-D15w 1,000 ml @ 55 mls/hr IV .[id number] [facility] Rx#:[id number] Piperacillin-Tazobactam 3 200 .375 gm In Sodium Chloride 0.9% 100 ml @ 25 mls/hr IVPB Q8HR [facility] Rx# :[id number] Pressure Bag 3 Sodium Chloride 0.9% 1, 1100 1200 100 000 ml @ 100 mls/hr IV . Q10H [facility] Rx#:[id number] Intake, IV Titration 3552.842 876.495 Amount Cisatracurium 200 mg In 200 200 Sodium Chloride 0.9% 180 ml @ 1 MCG/KG/MIN 9.03 mls/hr IV .Q22H9M [facility] Rx# :[id number] Diltiazem 125 mg In 107 Sodium Chloride 0.9% 100 ml @ 5 MG/HR 5 mls/hr IV .Q24H [facility] Rx#:[id number] Heparin Sod,Pork in 0.45% 86.649 NaCl 25,000 unit In 0.45 % NaCl 1 250ml.bag @ 6.1 UNITS/KG/HR 9.998 mls/hr IV .Q24H [facility] Rx#: [id number] Mvi, Adult No.4 with Vit 385 165 K 10 ml Trace (Conc-1Ml/ Dose) 1 ml Calcium Gluconate 1 gm Potassium Acetate 20 meq Sodium Acetate 20 meq Magnesium Sulfate gm 1 gm In Amino Acid 5%-D15w 1,000 ml @ 55 mls/hr IV .[id number] [facility] Rx#:[id number] Mvi, Adult No.4 with Vit 1012.917 K 10 ml Trace (Conc-1Ml/ Dose) 1 ml Calcium Gluconate 1 gm Potassium Acetate 60 meq Magnesium Sulfate gm 1 gm In Amino Acid 5%-D15w 1,000 ml @ 55 mls/hr IV .Q19H9M [facility] Rx#:[id number] Mvi, Adult No.4 with Vit 110 K 10 ml Trace (Conc-1Ml/ Dose) 1 ml Calcium Gluconate 1 gm Potassium Acetate 60 meq Potassium Phosphate 15 mmol In Amino Acid 5%-D15w 1,000 ml @ 55 mls/hr IV . [id number] [facility] Rx#:[id number] Norepinephrine 8 mg In 351.762 259.142 Sodium Chloride 0.9% 250 ml @ 0.05 MCG/KG/MIN 14. 35 mls/hr IV .[id number] [facility] Rx#:[id number] Propofol 1,000 mg In 386.163 165.704 Empty Bag 1 bag @ Titrate IV .Q0M [facility] Rx#: [id number] Sodium Chloride 0.9% 1, 1000 000 ml @ 999 mls/hr IV . Q1H1M [facility] Rx#:[id number] Oral 1100 Tube Feeding 210 100 10 Other 550 Output: Drainage 700 1700 100 Abdomen 1200 100 Medial Abdomen 700 500 Urine 305 170 10 Stool 250 350 150 Other: Voiding Method Indwelling Catheter Indwelling Catheter ABP, PAP, CO, CI - Last Documented Arterial Blood Pressure 112/52 - Constitutional General appearance: Present: no acute distress - Respiratory Respiratory: bilateral: rhonchi - Cardiovascular Rhythm: irregularly irregular Heart sounds: normal: S1, S2 - Labs CBC & Chem 7: 09/29/18 04:40 09/29/18 04:40 Labs: Abnormal Lab Results - Last 24 Hours (Table) 09/28/18 09/28/18 09/28/18 Range/Units 12:07 18:21 23:20 WBC (3.8-10.6) k/uL RBC (4.30-5.90) m/uL Hgb (13.0-17.5) gm/dL Hct (39.0-53.0) % MCV (80.0-100.0) fL MCH (25.0-35.0) pg MCHC (31.0-37.0) g/dL RDW (11.5-15.5) % Neutrophils # (Manual) (1.3-7.7) k/uL Lymphocytes # (Manual) (1.0-4.8) k/uL Monocytes # (Manual) (0-1.0) k/uL Nucleated RBCs (0-0) /100 WBC APTT (22.0-30.0) sec ABG pH (7.35-7.45) ABG pO2 (83-108) mmHg ABG HCO3 (21-25) mmol/L ABG Total CO2 (19-24) mmol/L ABG O2 Saturation (94-97) % Sodium (137-145) mmol/L Potassium (3.5-5.1) mmol/L Carbon Dioxide (22-30) mmol/L BUN (9-20) mg/dL Creatinine (0.66-1.25) mg/dL Glucose (74-99) mg/dL POC Glucose (mg/dL) 229 H 219 H 269 H (75-99) mg/dL Calcium (8.4-10.2) mg/dL Phosphorus (2.5-4.5) mg/dL 09/29/18 09/29/18 09/29/18 Range/Units 04:40 04:40 04:40 WBC 12.7 H (3.8-10.6) k/uL RBC 4.00 L (4.30-5.90) m/uL Hgb 7.9 L (13.0-17.5) gm/dL Hct 29.8 L (39.0-53.0) % MCV 74.3 L (80.0-100.0) fL MCH 19.7 L (25.0-35.0) pg MCHC 26.5 L (31.0-37.0) g/dL RDW 22.0 H (11.5-15.5) % Neutrophils # (Manual) 10.67 H (1.3-7.7) k/uL Lymphocytes # (Manual) 0.89 L (1.0-4.8) k/uL Monocytes # (Manual) 1.14 H (0-1.0) k/uL Nucleated RBCs 6 H (0-0) /100 WBC APTT 62.9 H (22.0-30.0) sec ABG pH (7.35-7.45) ABG pO2 (83-108) mmHg ABG HCO3 (21-25) mmol/L ABG Total CO2 (19-24) mmol/L ABG O2 Saturation (94-97) % Sodium 135 L (137-145) mmol/L Potassium 5.4 H (3.5-5.1) mmol/L Carbon Dioxide 16 L (22-30) mmol/L BUN 60 H (9-20) mg/dL Creatinine 2.73 H (0.66-1.25) mg/dL Glucose 255 H (74-99) mg/dL POC Glucose (mg/dL) (75-99) mg/dL Calcium 7.3 L (8.4-10.2) mg/dL Phosphorus 7.5 H (2.5-4.5) mg/dL 09/29/18 09/29/18 Range/Units 04:57 06:10 WBC (3.8-10.6) k/uL RBC (4.30-5.90) m/uL Hgb (13.0-17.5) gm/dL Hct (39.0-53.0) % MCV (80.0-100.0) fL MCH (25.0-35.0) pg MCHC (31.0-37.0) g/dL RDW (11.5-15.5) % Neutrophils # (Manual) (1.3-7.7) k/uL Lymphocytes # (Manual) (1.0-4.8) k/uL Monocytes # (Manual) (0-1.0) k/uL Nucleated RBCs (0-0) /100 WBC APTT (22.0-30.0) sec ABG pH 7.23 L (7.35-7.45) ABG pO2 47 L* (83-108) mmHg ABG HCO3 17 L (21-25) mmol/L ABG Total CO2 18 L (19-24) mmol/L ABG O2 Saturation 89.5 L (94-97) % Sodium (137-145) mmol/L Potassium (3.5-5.1) mmol/L Carbon Dioxide (22-30) mmol/L BUN (9-20) mg/dL Creatinine (0.66-1.25) mg/dL Glucose (74-99) mg/dL POC Glucose (mg/dL) 295 H (75-99) mg/dL Calcium (8.4-10.2) mg/dL Phosphorus (2.5-4.5) mg/dL Microbiology - Last 24 Hours (Table) 09/24/18 00:40 Blood Culture - Preliminary Blood No Growth after 120 hours 09/27/18 10:36 Blood Culture - Preliminary Blood No Growth after 24 hours 09/27/18 10:10 Gram Stain - Preliminary Abdomen Wound Culture - Preliminary Gram Neg Bacilli Assessment and Plan Assessment: Assessment #1 perforated peptic ulcer #2 status post surgery #3 chronic persistent atrial fibrillation #4 morbid obesity #5 acute renal failure #6 multiple comorbid conditions Plan #1 continue Cardizem IV at this point #2 we will switch him to oral metoprolol down the line #3 continue anticoagulation with heparin #4 follow-up with the patient
[2018-09-29] MEDS: MVI, ADULT NO.4 WITH VIT K 10 ML, TRACE (CONC-1ML/DOSE) 1 ML, CALCIUM GLUCONATE 1 GM, P... IV SCH ×6 (07:35)
--- NOTE | 2018-09-29 08:06 | XR ---
EXAMINATION TYPE: XR chest 1V portable DATE OF EXAM: 09/29/2018 COMPARISON: 09/28/2014 HISTORY: Shortness of breath TECHNIQUE: Single frontal view of the chest is obtained. FINDINGS: Right-sided central line seen with tracheostomy tube. Bilateral consolidation and pleural effusion. Cardiomegaly. No pneumothorax. IMPRESSION: Bilateral infiltrate and pleural effusion. Correlate for pneumonia versus CHF.
[2018-09-29] MEDS: HEPARIN SOD,PORK IN 0.45% NACL 25,000 UNIT in 0.45% NACL 1 250ML.BAG IV SCH ×2 (08:38→21:41)
--- NOTE | 2018-09-29 09:31 | P.NPCON ---
History of Present Illness - Reason for Consult acute renal failure - History of Present Illness Reason for consultation: Acute kidney injury Patient is a 72-year-old male seen in consultation for acute kidney injury. Patient's baseline creatinine is near 1 and is elevated at 2.73 today. Patient initially presented to the hospital on 09/16/2018 with abdominal pain. He was noted to have pneumoperitoneum due to a perforated gastric ulcer and underwent exploratory laparotomy with lysis of adhesions, decompression of colon and small bowel, transverse colectomy with takedown of splenic flexure and repair of gastric ulcer. Patient also went into A. fib with RVR and is currently maintained on IV heparin as well as Cardizem drip. He also underwent tracheostomy this admission. He is currently on TPN running at 55 mL an hour. He is also receiving normal saline. Patient is quite volume overloaded and was also started on IV Lasix 80 mg twice daily. Patient's urine output has been about 10-15 mL an hour. Patient's also on Bextra. Family is present at bedside. He is off Levophed since this morning. He is maintained on antibiotics per infectious disease recommendations. Vital signs are stable. Off vasopressors. General: The patient appeared well nourished and normally developed. HEENT: Head exam is unremarkable. Neck is without jugular venous distension. Tracheostomy noted. LUNGS: Scattered rhonchi. Breath sounds decreased. HEART: Irregular rate and rhythm. ABDOMEN: Bowel sounds decreased. EXTREMITITES: 2+ edema. Past Medical History Past Medical History: Atrial Fibrillation, Asthma, Blood Disorder, Chest Pain / Angina, COPD, GERD/Reflux, Hyperlipidemia, Hypertension, Skin Disorder, Sleep Apnea/CPAP/BIPAP Additional Past Medical History / Comment(s): COPD, asthma, obesity, paroxysmal atrial fibrillation, psoriasis,hemoglobin [place] with polycythemia, pericardial effusion, hx hiatal hernia, hx bowel obstruction, uses oxygen 2L at , 09/07/2018-cellulitis of the anterior abdominal wall History of Any Multi-Drug Resistant Organisms: None Reported Past Surgical History: Appendectomy, Hernia Repair Additional Past Surgical History / Comment(s): Laparoscopic lucia fundloplasty and mesh repair of hiatal hernia. arthroscopy left knee Past Anesthesia/Blood Transfusion Reactions: Motion Sickness Additional Past Anesthesia/Blood Transfusion Reaction / Comment(s): . Past Psychological History: No Psychological Hx Reported Smoking Status: Former smoker Past Alcohol Use History: None Reported Past Drug Use History: None Reported - Past Family History Sister(s) Family Medical History: Deep Vein Thrombosis (DVT) Brother(s) Family Medical History: Myocardial Infarction ([place]) Additional Family Medical History / Comment(s): Brother had a [place] at age 71 yrs. Father Family Medical History: Cancer Additional Family Medical History / Comment(s): . Mother Family Medical History: Cancer Additional Family Medical History / Comment(s): . Medications and Allergies Home Medications Medication Instructions Recorded Confirmed Type Multivitamin [Men's Multi-Vitamin] 1 tab PO DAILY 10/08/14 09/16/18 History Aspirin EC [Ecotrin Low Dose] 81 mg PO DAILY #0 tablet. 01/11/15 09/16/18 Rx Atorvastatin [Lipitor] 20 mg PO HS #30 tab 01/11/15 09/16/18 Rx Montelukast [Singulair] 10 mg PO HS #30 tab 01/11/15 09/16/18 Rx Potassium Chloride [K-Tab ER] 20 meq PO BID 11/12/15 09/16/18 History Albuterol Sulfate [Proair 1 puff INHALATION RT-BID 01/08/17 09/16/18 History Respiclick] Ipratropium-Albuterol Nebulize 3 ml INHALATION RT-QID PRN 01/08/17 09/16/18 History [Duoneb 0.5 mg-3 mg/3 ml Soln] Sennosides-Docusate Sodium 1 tab PO BID #60 tablet 01/14/17 09/16/18 Rx [Senokot-S] Ferrous Sulfate [Iron (65 MG 325 mg PO DAILY 09/07/18 09/16/18 History Elemental)] Umeclidinium Brm/Vilanterol Tr 1 puff INHALATION RT-DAILY 09/07/18 09/16/18 History [Anoro Ellipta 62.5-25 Mcg INH] metFORMIN HCL 1,000 mg PO AC-BRKFST 09/07/18 09/16/18 History metFORMIN HCL 1,500 mg PO AC-SUPPER 09/07/18 09/16/18 History sitaGLIPtin [Januvia] 100 mg PO DAILY 09/07/18 09/16/18 History Apixaban [Eliquis] 5 mg PO BID #60 tab 09/11/18 09/16/18 Rx Amiodarone [Cordarone] 200 mg PO BID #60 tab 09/12/18 09/16/18 Rx Furosemide [Lasix] 60 mg PO BID@0900,1600 #180 tab 09/12/18 09/16/18 Rx Hydrocortisone [Hydrocortisone 1 applic TOPICAL BID #28 gm 09/12/18 09/16/18 Rx 0.05%] Nystatin 100,000 Unit/gm Powd 1 applic TOPICAL BID #0 applic 09/12/18 09/16/18 Rx [Mycostatin Powder] Spironolactone [Aldactone] 25 mg PO BID #60 tab 09/12/18 09/16/18 Rx Verapamil Sr [Isoptin Sr] 240 mg PO BID #60 tablet.er 09/12/18 09/16/18 Rx predniSONE 40 mg PO DAILY #14 tab 09/12/18 09/16/18 Rx Amoxicillin/Potassium Clav 1 tab PO Q12HR 09/16/18 09/16/18 History [Augmentin 875-125 Tablet] Allergies Allergy/AdvReac Type Severity Reaction Status Date / Time acetaminophen [From [place]] AdvReac see Verified 09/16/18 10:25 comments hydrocodone [From [place]] AdvReac see Verified 09/16/18 10:25 comments warfarin [From Coumadin] AdvReac SEE Verified 09/16/18 10:25 COMMENTS Physical Exam Vitals: Vital Signs Temp Pulse Resp BP Pulse Ox 09/29/18 08:57 96 09/29/18 08:00 98.1 F 95 40 H 100/59 96 09/29/18 07:30 86 34 H 105/57 96 09/29/18 07:00 86 34 H 101/62 96 09/29/18 06:30 87 34 H 98/60 96 09/29/18 06:00 87 34 H 94/63 97 09/29/18 05:30 96 34 H 103/64 96 09/29/18 05:00 96 34 H 112/68 93 L 09/29/18 04:30 101 H 34 H 104/62 94 L 09/29/18 04:00 98.1 F 98 34 H 123/77 94 L 09/29/18 03:30 95 34 H 121/66 93 L 08/05/19 03:24 90 09/29/18 03:14 93 09/29/18 03:01 94 34 H 121/70 93 L 09/29/18 02:30 96 34 H 101/61 93 L 09/29/18 02:00 99 32 H 119/67 94 L 09/29/18 01:30 96 34 H 126/79 94 L 09/29/18 01:00 97 34 H 105/59 94 L 09/29/18 00:30 85 33 H 125/73 94 L 09/29/18 00:00 98.1 F 99 34 H 115/81 93 L 09/28/18 23:30 90 34 H 110/83 94 L 09/28/18 23:14 90 09/28/18 23:08 91 09/28/18 23:01 88 34 H 109/68 92 L 09/28/18 23:00 87 34 H 106/67 92 L 09/28/18 22:30 90 33 H 102/66 93 L 09/28/18 22:00 96 34 H 107/55 93 L 09/28/18 21:30 92 34 H 103/57 93 L 09/28/18 21:00 87 34 H 105/72 93 L 09/28/18 20:30 89 34 H 110/65 94 L 09/28/18 20:00 98.4 F 91 34 H 113/67 94 L 09/28/18 19:50 82 09/28/18 19:40 81 09/28/18 19:30 82 33 H 107/68 94 L 09/28/18 19:00 78 34 H 101/66 93 L 09/28/18 18:30 80 34 H 105/67 94 L 09/28/18 18:00 80 34 H 107/60 93 L 09/28/18 17:30 81 34 H 107/66 93 L 09/28/18 17:00 80 34 H 105/61 94 L 09/28/18 16:30 81 33 H 107/69 93 L 09/28/18 16:00 86 35 H 104/68 93 L 09/28/18 15:36 80 09/28/18 15:30 81 34 H 105/67 94 L 09/28/18 15:17 83 09/28/18 15:00 88 33 H 121/67 93 L 09/28/18 14:30 93 34 H 119/68 93 L 09/28/18 14:00 88 13 115/72 92 L 09/28/18 13:30 86 5 L 116/65 92 L 09/28/18 13:00 98.1 F 92 34 H 111/63 92 L 09/28/18 12:30 87 34 H 132/78 91 L 09/28/18 12:00 94 34 H 127/77 92 L 09/28/18 11:41 94 09/28/18 11:30 95 34 H 136/76 93 L 09/28/18 11:26 94 09/28/18 11:00 92 33 H 135/80 92 L 09/28/18 10:30 78 34 H 68/49 93 L 09/28/18 10:00 79 23 84/53 93 L 09/28/18 09:30 80 34 H 90/58 93 L Intake and Output 09/28/18 09/29/18 09/29/18 22:59 06:59 14:59 Intake Total 0441.763 6719.495 367.315 Output Total 790 2170 425 Balance 1025.762 -113.505 -57.685 Intake: IV 800 1375 255 Cisatracurium 200 mg In 200 Sodium Chloride 0.9% 180 ml @ 1 MCG/KG/MIN 9.03 mls/hr IV .Q22H9M [facility] Rx# :[id number] Meropenem 1 gm In Sodium 100 Chloride 0.9% 100 ml @ 200 mls/hr IVPB Q12H [facility] Rx#:[id number] Mvi, Adult No.4 with Vit 275 55 K 10 ml Trace (Conc-1Ml/ Dose) 1 ml Calcium Gluconate 1 gm Potassium Acetate 20 meq Sodium Acetate 20 meq Magnesium Sulfate gm 1 gm In Amino Acid 5%-D15w 1,000 ml @ 55 mls/hr IV .[id number] [facility] Rx#:[id number] Sodium Chloride 0.9% 1, 800 800 200 000 ml @ 100 mls/hr IV . Q10H [facility] Rx#:[id number] Intake, IV Titration 885.762 611.495 92.315 Amount Cisatracurium 200 mg In 200 Sodium Chloride 0.9% 180 ml @ 1 MCG/KG/MIN 9.03 mls/hr IV .Q22H9M [facility] Rx# :[id number] Diltiazem 125 mg In 107 Sodium Chloride 0.9% 100 ml @ 5 MG/HR 5 mls/hr IV .Q24H [facility] Rx#:[id number] Heparin Sod,Pork in 0.45% 86.649 92.315 NaCl 25,000 unit In 0.45 % NaCl 1 250ml.bag @ 6.1 UNITS/KG/HR 9.998 mls/hr IV .Q24H [facility] Rx#: [id number] Mvi, Adult No.4 with Vit 385 K 10 ml Trace (Conc-1Ml/ Dose) 1 ml Calcium Gluconate 1 gm Potassium Acetate 20 meq Sodium Acetate 20 meq Magnesium Sulfate gm 1 gm In Amino Acid 5%-D15w 1,000 ml @ 55 mls/hr IV .[id number] [facility] Rx#:[id number] Norepinephrine 8 mg In 93.762 259.142 Sodium Chloride 0.9% 250 ml @ 0.05 MCG/KG/MIN 14. 35 mls/hr IV .[id number] [facility] Rx#:[id number] Propofol 1,000 mg In 100 265.704 Empty Bag 1 bag @ Titrate IV .Q0M [facility] Rx#: [id number] Tube Feeding 130 70 20 Output: Drainage 400 1700 250 Abdomen 1200 250 Medial Abdomen 400 500 Urine 140 120 25 Stool 250 350 150 Other: Voiding Method Indwelling Catheter Indwelling Catheter Weight 158.7 kg Results - Lab Results Most recent lab results ABG pH 7.23 (7.35-7.45) L 09/29/18 04:57 ABG pCO2 40 mmHg (35-45) 09/29/18 04:57 ABG pO2 47 mmHg (83-108) L* 09/29/18 04:57 ABG HCO3 17 mmol/L (21-25) L 09/29/18 04:57 ABG O2 Saturation 89.5 % (94-97) L 09/29/18 04:57 Calcium 7.3 mg/dL (8.4-10.2) L 09/29/18 04:40 Phosphorus 7.5 mg/dL (2.5-4.5) H 09/29/18 04:40 Magnesium 2.2 mg/dL (1.6-2.3) 09/29/18 04:40 09/29/18 04:40 09/29/18 04:40 Assessment and Plan Plan: Assessment: 1. Oliguric acute kidney injury secondary to ATN secondary to septic shock. Baseline creatinine is 1. It is 2.73 today. 2. Pneumoperitoneum secondary to perforated gastric ulcer status post exploratory laparotomy with lysis of adhesions and repair of gastric ulcer on September 16. 3. A. fib with RVR maintained on Cardizem and heparin drip. 4. Volume overload. 5. Septic shock secondary to peritonitis from perforated peptic ulcer maintained on IV antibiotics. 6. Hyperphosphatemia secondary to acute kidney injury. 7. Metabolic acidosis secondary to acute kidney injury and IV fluids. 8. Mild hyperkalemia secondary to acute kidney injury and metabolic acidosis. Plan: Maintain TPN and tube feeding. Hep-Lock IV fluids. Maintain Lasix 80 mg IV twice daily. 2 A of sodium bicarb IV push. Add oral sodium bicarbonate. Add PhosLo 3 times daily. Repeat BMP this evening. Continue to monitor renal function and urine output closely. I did discuss with the family that there is no improvement in his renal function and urine output in the next 24-48 hours, will need to initiate renal replacement therapy. Thank you for the consultation. I will continue to follow the patient with your during his hospital stay.
[2018-09-29] MEDS ORDERED: LIDOCAINE 1% INJ 10MG/ML (20 ML MDV) ONE (09:36)
[2018-09-29] MEDS ORDERED: SODIUM BICARB 8.4% 50 ML SYR (1 MEQ/ML) IV STA ×2 (09:38→21:59)
[2018-09-29] MEDS: CHLORHEXIDINE GLUCONATE 15 ML CUP MUCOUS MEM SCH ×2 (10:01→20:49)
[2018-09-29] MEDS: FLUCONAZOLE IN NACL,ISO-OSM 200 MG in SALINE 1 100ML.BAG IVPB SCH (10:01)
[2018-09-29] MEDS: FUROSEMIDE 10 MG/ML 10 ML VIAL IV SCH ×2 (10:02→20:49)
[2018-09-29] MEDS: HYDROCORTISONE SUCCINATE 100 MG/2 ML VIAL IV SCH ×2 (10:02→20:49)
[2018-09-29] MEDS: PANTOPRAZOLE 40 MG/10 ML VIAL IVP SCH (10:03)
[2018-09-29 10:13] LABS: ABG HCO3 18 mmol/L (21-25); ABG PCO2 43 mmHg (35-45); ABG PH 7.24 (7.35-7.45); ABG PO2 85 mmHg (83-108); ABG TCO2 20 mmol/L (19-24); Allen Test Performed? Yes
[2018-09-29] MEDS: SODIUM BICARBONATE TAB 650 MG TAB PO SCH ×3 (10:37→20:51)
[2018-09-29] MEDS ORDERED: INSULIN REGULAR BOLUS (FROM DRIP BAG) IV PRN (10:37)
--- NOTE | 2018-09-29 10:48 | PN ---
PROGRESS NOTE This is a pulmonary/critical care progress note. DATE OF SERVICE: September 29, 2018 CRITICAL CARE TIME: 35 minutes. This is a patient who was admitted way back on September 16 for ischemic bowel and perforated ulcer. He went to the operating room on September 16 and had a gastric ulcer repair, lysis of adhesions, and transverse colectomy. The patient has been intubated on the mechanical ventilator since September 16 and he had a tracheostomy performed on September 26. Currently, he remains on life support. The patient is currently on the volume assist-control mode of ventilation with a rate 34, breathing 34 times a minute because he is chemically paralyzed, tidal volume 600, FiO2 80%, PEEP of 10. Arterial blood gases show pO2 of 47, pCO2 of 40, pH 7.233. These blood gases were done on 60% and hence the FiO2 was increased to 80. He is on Cardizem drip at 10 mg an hour, heparin via weight based protocol. TPN at 55 mL an hour, Nimbex at 2 mcg/kg per minute, propofol 40 mcg/kg per minute, a saline IV at 100 mL an hour and a small amount of norepinephrine. The patient's wound cultures grew out both E coli and Staph epidermidis and he is on a combination of daptomycin, meropenem, and Diflucan. Since he has been here, he has made little progress. I am not sure that there have been discussions with family about code status as it appears that his overall prognosis is likely very poor. In addition to all of that and abdominal sepsis, the patient has a history of acute tubular necrosis, multiorgan system failure, abdominal sepsis, paroxysmal atrial fibrillation, COPD, diastolic heart failure, failure to wean from mechanical ventilation, diabetes mellitus, critical illness polyneuropathy and chronic hypoxemic respiratory failure. PHYSICAL EXAMINATION: VITAL SIGNS: Vital signs are reviewed. Temperature 98.1, heart rate 95, respiratory rate 40, blood pressure 100/59, mean 72, saturations 96% on 80% and 10 of PEEP. Appears in no acute distress. He is heavily sedated and paralyzed. HEENT: Examination is grossly unremarkable. There is an orally placed endotracheal tube and NG tube. NECK: Supple. Full range of motion. No adenopathy. Neck veins are flat. CARDIOVASCULAR: Examination reveals regular rhythm and rate. Heart rate about 95 beats per minute. S1, S2 normal. Heart sounds are distant. No distinct murmur. LUNGS: Reveal coarse rhonchi. Breath sounds are diminished. There are some crackles throughout. ABDOMEN: Soft. No bowel sounds. EXTREMITIES: Are intact. There is significant diffuse edema. SKIN: Without rash. NEUROLOGIC: Examination is difficult to assess given his current level of sedation. MICROBIOLOGIC DATA: Microbiologic data shows a wound culture showing gram-negative bacilli and some Staph epidermidis. On a previous wound culture, the gram-negative bacilli turned out to be Escherichia coli. LAB DATA: Lab data is reviewed. White count 12.7, hemoglobin 7.9, hematocrit 29.8, platelet count 362,000. Earlier blood gas shows a pO2 of 47, pCO2 of 40, pH 7.23, that was on 60%. Sodium 135, potassium 5.4, chloride 104, CO2 of 16. Anion gap is 15. BUN and creatinine were 60 and 2.73. No albumin is measured. Magnesium is 2.2. MEDICATIONS: Medications are reviewed. As mentioned earlier, the patient is on daptomycin, meropenem and Diflucan. X-RAY: A chest x-ray from today reveals a midline tracheostomy. There is a central line on the right side. NG tube appears to be in good position. There is cardiomegaly. There is bibasilar infiltrates or atelectasis and small effusions. There may be some infiltrate as well bilaterally. ASSESSMENT: 1. Chronic hypoxemic respiratory failure with failure to wean from mechanical ventilation, with initial intubation on September 16, the day of this procedure. 2. Postoperative day #13, status post exploratory laparotomy, lysis of adhesions, repair of gastric ulcer, and transverse colectomy. 3. Abdominal sepsis with septic shock. 4. Acute hypoxemic respiratory failure, with possible acute respiratory distress syndrome secondary to sepsis. 5. Acute kidney injury/acute tubular necrosis. 6. Possible abdominal compartment syndrome. 7. Paroxysmal atrial fibrillation. 8. Chronic obstructive pulmonary disease. 9. Status post tracheostomy, for failure to wean, postop day #3. 10.Acute diastolic heart failure. 11.Anion gap metabolic acidosis. 12.Failure to wean from mechanical ventilation. 13.Diabetes mellitus. 14.Chronic hypoxemic respiratory failure. 15.Suspect critical illness polyneuropathy. 16.Escherichia coli and Staphylococcus epidermidis sepsis. PLAN: The patient is doing poorly in my opinion. We will repeat a blood gas. We will talk to the family about code status. He has now been weaned off norepinephrine. He remains sedated and paralyzed. The assist-control rate is increased from 34 to 40. His tidal volume is reduced from 600 to 500. A repeat blood gas will tell me whether not I can decrease the FiO2 or I have to go up on the PEEP. Again discussion will take place with the family about code status. Prognosis is very poor. The patient would not be a candidate for [facility] at this time as he is too unstable and on too many drips and other medications. CRITICAL CARE TIME: 35 minutes. ROSEY / ASIAN: [id number] /
[2018-09-29 11:48] LABS: Glucose,Whole Blood 244 mg/dL (75-99)
[2018-09-29] MEDS ORDERED: LIDOCAINE 1% INJ 10MG/ML (20 ML MDV) SQ ONE (12:00)
[2018-09-29] MEDS: INSULIN REGULAR 100 UNIT in SODIUM CHLORIDE 0.9% 100 ML IV SCH ×2 (12:32→20:43)
--- NOTE | 2018-09-29 12:39 | XR ---
EXAMINATION TYPE: XR chest 1V confirm line [facility] DATE OF EXAM: 09/29/2018 COMPARISON: 09/29/2018 HISTORY: PICC line placement TECHNIQUE: Single frontal view of the chest is obtained. FINDINGS: Bilateral airspace disease, pleural effusion, cardiomegaly, right-sided central line, and tracheostomy tube stable. Underlying venous congestion suspected. There is a new left-sided PICC line with the tip near the level of the subclavian SVC junction. IMPRESSION: 1. Diffuse airspace disease and pleural effusion are stable. 2. Interval placement of PICC line which appears ready for use.
[2018-09-29] MEDS: CALCIUM ACETATE 667 MG CAP PO SCH ×2 (12:41→18:20)
--- NOTE | 2018-09-29 12:53 | P.PN ---
Subjective Progress Note Date: 09/29/18 CHIEF COMPLAINT: abdominal pain HISTORY OF PRESENT ILLNESS: Patient s/p exploratory laparotomy, lysis of adhesions, decompression of colon and small bowel, transverse colectomy with takedown of splenic flexure, and repair of gastric ulcer with Dr. De Leon secondary to pneumoperitoneum, perforated gastric ulcer, ischemic colon at splenic flexure, and bowel obstruction. POD #13. The patient remains intubated on mechanical ventilation in the intensive care unit. Patient remains sedated and on paralytics. Trach placed on Saturday. Fio2 requirements have increased. Unable to have PEG tube inserted at that time. Drainage from [facility] culture reveals Staphylococcus epidermidis and E. coli. Wound culture from 09/27/2018 reveals gram-negative bacilli. PHYSICAL EXAM: VITAL SIGNS: Reviewed GENERAL: Well-developed in no acute distress. Patient sedated on mechanical ventilation HEENT: NG tube with tube feeding infusing. No sclera icterus. Extraocular movements grossly intact. Moist buccal mucosa. Head is atraumatic, normocephalic. No nasal drainage. NECK: Trach noted. Supple without lymphadenopathy. CHEST: Non-labored respirations and equal bilateral excursions-remains on ventilator. CARDIOVASCULAR: Irregular rhythm. Palpable 2+ radial pulses. ABDOMEN: Abdomen nondistended, but obese. Wound vac to abdomen. CHAVEZ drain with serous drainage-connected to suction. Left-sided colostomy with stool present. Ostomy pink/red. NEUROLOGIC: Patient sedated on mechanical ventilation PSYCH: Patient sedated on mechanical ventilation SKIN: Well perfused. Good skin turgor. ASSESSMENT: 1. Abdominal pain 2. Pneumoperitoneum 3. S/P exploratory laparotomy, lysis of adhesions, decompression of colon and small bowel, transverse colectomy with takedown of splenic flexure, and repair of gastric ulcer secondary to pneumoperitoneum, perforated gastric ulcer, ischemic colon at splenic flexure, and bowel obstruction 4. Septic shock, present on admission secondary to above 5. History of atrial fibrillation, on long-term anticoagulation with Eliquis 6. History of bowel obstruction 7. History of laparoscopic Bruce fundoplication 8. History of hiatal hernia repair with mesh PLAN: 1. Continue ventilator management per Dr. Love. 2. Continue tube feedings. May slowly advance. Continue TPN 3. Continue wound vac 4. Continue antibiotics 5. Prognosis appears poor at this time Nurse practitioner note has been reviewed by physician. Signing provider agrees with the documented findings, assessment, and plan of care. Objective - Vital Signs Vital signs: Vital Signs Temp 98.1 F 09/29/18 08:00 Pulse 105 H 09/29/18 11:30 Resp 40 H 09/29/18 11:30 BP 115/63 09/29/18 11:30 Pulse Ox 93 L 09/29/18 11:30 Intake & Output 09/28/18 09/29/18 09/29/18 18:59 06:59 18:59 Intake Total 6815.842 2851.495 982.315 Output Total 1255 2220 470 Balance 5560.842 631.495 512.315 Weight 158.7 kg 158.7 kg Intake: IV 1403 1775 540 Cisatracurium 200 mg In 200 Sodium Chloride 0.9% 180 ml @ 1 MCG/KG/MIN 9.03 mls/hr IV .Q22H9M [facility] Rx# :[id number] Fluconazole in NaCl,Iso- 100 100 Osm 200 mg In Saline 1 100ml.bag @ 100 mls/hr IVPB DAILY [facility] Rx#: [id number] Meropenem 1 gm In Sodium 100 Chloride 0.9% 100 ml @ 200 mls/hr IVPB Q12H [facility] Rx#:[id number] Mvi, Adult No.4 with Vit 275 220 K 10 ml Trace (Conc-1Ml/ Dose) 1 ml Calcium Gluconate 1 gm Potassium Acetate 20 meq Sodium Acetate 20 meq Magnesium Sulfate gm 1 gm In Amino Acid 5%-D15w 1,000 ml @ 55 mls/hr IV .[id number] [facility] Rx#:[id number] Piperacillin-Tazobactam 3 200 .375 gm In Sodium Chloride 0.9% 100 ml @ 25 mls/hr IVPB Q8HR [facility] Rx# :[id number] Pressure Bag 3 Sodium Chloride 0.9% 1, 1100 1200 220 000 ml @ 100 mls/hr IV . Q10H [facility] Rx#:[id number] Intake, IV Titration 3552.842 976.495 392.315 Amount Cisatracurium 200 mg In 200 200 200 Sodium Chloride 0.9% 180 ml @ 1 MCG/KG/MIN 9.03 mls/hr IV .Q22H9M [facility] Rx# :[id number] Diltiazem 125 mg In 107 Sodium Chloride 0.9% 100 ml @ 5 MG/HR 5 mls/hr IV .Q24H PENDING SALE TO [facility] Rx#:[id number] Heparin Sod,Pork in 0.45% 86.649 92.315 NaCl 25,000 unit In 0.45 % NaCl 1 250ml.bag @ 6.1 UNITS/KG/HR 9.998 mls/hr IV .Q24H PENDING SALE TO [facility] Rx#: [id number] Mvi, Adult No.4 with Vit 385 165 K 10 ml Trace (Conc-1Ml/ Dose) 1 ml Calcium Gluconate 1 gm Potassium Acetate 20 meq Sodium Acetate 20 meq Magnesium Sulfate gm 1 gm In Amino Acid 5%-D15w 1,000 ml @ 55 mls/hr IV .[id number] PENDING SALE TO [facility] Rx#:[id number] Mvi, Adult No.4 with Vit 1012.917 K 10 ml Trace (Conc-1Ml/ Dose) 1 ml Calcium Gluconate 1 gm Potassium Acetate 60 meq Magnesium Sulfate gm 1 gm In Amino Acid 5%-D15w 1,000 ml @ 55 mls/hr IV .Q19H9M PENDING SALE TO [facility] Rx#:[id number] Mvi, Adult No.4 with Vit 110 K 10 ml Trace (Conc-1Ml/ Dose) 1 ml Calcium Gluconate 1 gm Potassium Acetate 60 meq Potassium Phosphate 15 mmol In Amino Acid 5%-D15w 1,000 ml @ 55 mls/hr IV . [id number] PENDING SALE TO [facility] Rx#:[id number] Norepinephrine 8 mg In 351.762 259.142 Sodium Chloride 0.9% 250 ml @ 0.05 MCG/KG/MIN 14. 35 mls/hr IV .[id number] PENDING SALE TO [facility] Rx#:[id number] Propofol 1,000 mg In 386.163 265.704 100 Empty Bag 1 bag @ Titrate IV .Q0M PENDING SALE TO [facility] Rx#: [id number] Sodium Chloride 0.9% 1, 1000 000 ml @ 999 mls/hr IV . Q1H1M [facility] Rx#:[id number] Oral 1100 Tube Feeding 210 100 50 Other 550 Output: Drainage 700 1700 250 Abdomen 1200 250 Medial Abdomen 700 500 Urine 305 170 70 Stool 250 350 150 Other: Voiding Method Indwelling Catheter Indwelling Catheter Indwelling Catheter ABP, PAP, CO, CI - Last Documented Arterial Blood Pressure 112/52 - Labs CBC & Chem 7: 09/29/18 04:40 09/29/18 04:40 Labs: Abnormal Lab Results - Last 24 Hours (Table) 09/28/18 09/28/18 09/29/18 Range/Units 18:21 23:20 04:40 WBC (3.8-10.6) k/uL RBC (4.30-5.90) m/uL Hgb (13.0-17.5) gm/dL Hct (39.0-53.0) % MCV (80.0-100.0) fL MCH (25.0-35.0) pg MCHC (31.0-37.0) g/dL RDW (11.5-15.5) % Neutrophils # (Manual) (1.3-7.7) k/uL Lymphocytes # (Manual) (1.0-4.8) k/uL Monocytes # (Manual) (0-1.0) k/uL Nucleated RBCs (0-0) /100 WBC APTT (22.0-30.0) sec ABG pH (7.35-7.45) ABG pO2 (83-108) mmHg ABG HCO3 (21-25) mmol/L ABG Total CO2 (19-24) mmol/L ABG O2 Saturation (94-97) % Sodium 135 L (137-145) mmol/L Potassium 5.4 H (3.5-5.1) mmol/L Carbon Dioxide 16 L (22-30) mmol/L BUN 60 H (9-20) mg/dL Creatinine 2.73 H (0.66-1.25) mg/dL Glucose 255 H (74-99) mg/dL POC Glucose (mg/dL) 219 H 269 H (75-99) mg/dL Calcium 7.3 L (8.4-10.2) mg/dL Phosphorus 7.5 H (2.5-4.5) mg/dL 09/29/18 09/29/18 09/29/18 Range/Units 04:40 04:40 04:57 WBC 12.7 H (3.8-10.6) k/uL RBC 4.00 L (4.30-5.90) m/uL Hgb 7.9 L (13.0-17.5) gm/dL Hct 29.8 L (39.0-53.0) % MCV 74.3 L (80.0-100.0) fL MCH 19.7 L (25.0-35.0) pg MCHC 26.5 L (31.0-37.0) g/dL RDW 22.0 H (11.5-15.5) % Neutrophils # (Manual) 10.67 H (1.3-7.7) k/uL Lymphocytes # (Manual) 0.89 L (1.0-4.8) k/uL Monocytes # (Manual) 1.14 H (0-1.0) k/uL Nucleated RBCs 6 H (0-0) /100 WBC APTT 62.9 H (22.0-30.0) sec ABG pH 7.23 L (7.35-7.45) ABG pO2 47 L* (83-108) mmHg ABG HCO3 17 L (21-25) mmol/L ABG Total CO2 18 L (19-24) mmol/L ABG O2 Saturation 89.5 L (94-97) % Sodium (137-145) mmol/L Potassium (3.5-5.1) mmol/L Carbon Dioxide (22-30) mmol/L BUN (9-20) mg/dL Creatinine (0.66-1.25) mg/dL Glucose (74-99) mg/dL POC Glucose (mg/dL) (75-99) mg/dL Calcium (8.4-10.2) mg/dL Phosphorus (2.5-4.5) mg/dL 09/29/18 09/29/18 09/29/18 Range/Units 06:10 10:11 11:47 WBC (3.8-10.6) k/uL RBC (4.30-5.90) m/uL Hgb (13.0-17.5) gm/dL Hct (39.0-53.0) % MCV (80.0-100.0) fL MCH (25.0-35.0) pg MCHC (31.0-37.0) g/dL RDW (11.5-15.5) % Neutrophils # (Manual) (1.3-7.7) k/uL Lymphocytes # (Manual) (1.0-4.8) k/uL Monocytes # (Manual) (0-1.0) k/uL Nucleated RBCs (0-0) /100 WBC APTT (22.0-30.0) sec ABG pH 7.24 L (7.35-7.45) ABG pO2 (83-108) mmHg ABG HCO3 18 L (21-25) mmol/L ABG Total CO2 (19-24) mmol/L ABG O2 Saturation 98.0 H (94-97) % Sodium (137-145) mmol/L Potassium (3.5-5.1) mmol/L Carbon Dioxide (22-30) mmol/L BUN (9-20) mg/dL Creatinine (0.66-1.25) mg/dL Glucose (74-99) mg/dL POC Glucose (mg/dL) 295 H 244 H (75-99) mg/dL Calcium (8.4-10.2) mg/dL Phosphorus (2.5-4.5) mg/dL Microbiology - Last 24 Hours (Table) 09/24/18 00:40 Blood Culture - Preliminary Blood No Growth after 120 hours 09/27/18 10:36 Blood Culture - Preliminary Blood No Growth after 24 hours 09/27/18 10:10 Gram Stain - Preliminary Abdomen Wound Culture - Preliminary Gram Neg Bacilli Assessment and Plan (1) Acute abdomen Current Visit: Yes Status: Acute Code(s): R10.0 - ACUTE ABDOMEN SNOMED Code(s): 0196562 (2) A-fib Current Visit: No Status: Acute Priority: High Code(s): I48.91 - UNSPECIFIED ATRIAL FIBRILLATION SNOMED Code(s): 15159953 (3) Abdominal pain Current Visit: No Status: Acute Code(s): R10.9 - UNSPECIFIED ABDOMINAL PAIN SNOMED Code(s): 36508169 (4) S/P exploratory laparotomy Current Visit: No Status: Acute Code(s): Z98.89 - OTHER SPECIFIED POSTPROCEDURAL STATES * DO NOT USE * SNOMED Code(s): 755465958
[2018-09-29 13:11] LABS: Glucose,Whole Blood 266 mg/dL (75-99)
[2018-09-29 14:05] LABS: Glucose,Whole Blood 243 mg/dL (75-99)
--- NOTE | 2018-09-29 14:06 | P.PN ---
Subjective Progress Note Date: 09/29/18 This is a 72-year-old male patient of Dr. Cevallos with past history of chronic hypoxic respiratory failure on home O2 obstructive sleep apnea on CPAP, paroxysmal atrial fibrillation, chronic diastolic heart failure, severe COPD, morbid obesity with BMI of 47, hypertension hypertensive cardiovascular disease, mild intermittent asthma, hyperlipidemia, gastroesophageal reflux disease, diabetes mellitus type 2, cellulitis of the abdominal wall. Patient was recently hospitalized and discharged home on September 12 and treated for acute diastolic heart failure, atrial flutter/atrial fibrillation with rapid ventricular response status post MIKE which found a small atrial appendage thrombus. The patient was stabilized and discharged home in stable condition and had been started on amiodarone, eliquis, Aldactone, prednisone and Augmentin. Patient presented to [facility] emergency center for evaluation. He was afebrile, heart rate 130s, blood pressure 119/79, pulse ox 95%. White count was 5.9, hemoglobin 10.6, platelet count 4-72. Sodium 133, potassium 5.4, chloride 96, CO2 20, BUN 36 and creatinine 1.6, blood sugar 178. CAT scan of the abdomen and pelvis revealed pneumoperitoneum. Bowel distention. Bowel ischemia not excluded. No clear obstruction. Findings may be due to ileus. Patient was provided IV fluids, pain medication and Zosyn patient was seen by Dr. De Leon in the emergency center and taken to the OR found to have a perforated gastric ulcer, ischemic colon at the site of splenic flexure of the bowel obstruction. Patient underwent exploratory laparotomy, lysis of adhesions, decompression of the colon and small bowel, transverse colectomy and takedown of splenic flexure and repair of a gastric ulcer. Patient was then transferred to the intensive care unit and followed by Dr. Red. He is status post greater than 8 L of IV fluid and on norepinephrine and subsequent started on vasopressin. Urine output has been marginal patient remains intubated and on mechanical ventilation with tidal volume 550, FiO2 of 50% and PEEP of 5. The patient is on sedation. 09/18: Patient remains in intensive care unit intubated and on mechanical vent ilation with tidal volume 550, FiO2 50, PEEP 5. NG tube with black drainage. He is on 22 mics of levo fed and 0.03 vasopressin. Patient was started on amiodarone due to continued A. fib with RVR. Heart rate is in the 140s, blood pressure systolic 99. A.m. lab work white count 9.6, hemoglobin 8.5, platelet count 368. Sodium 136, potassium 4.9, chloride 108, CO2 18, BUN 39 creatinine 1.81. Blood sugars are running between 141 and 161. Urine culture is in progress and blood culture is no growth at [address] Benedict is recommended continuing Zosyn and Diflucan. Son is at bedside and all questions have been answered. 09/19: Patient remains in the intensive care unit intubated and on mechanical ventilation with tidal volume 550, FiO2 40 and PEEP of 5. Norepinephrine is now down to 5 mics and minimal on vasopressin. Urine output has been more than adequate. He has been afebrile. He is continued on sedation with propofol. A sedation holiday was attempted today but patient became tachypneic. Patient is back on sedation with plan for tomorrow for sedation holiday tomorrow. Patient has had output from colostomy and passing gas and colostomy. Decreased output from NG tube and from CHAVEZ drain. WBC 8.6, hemoglobin 7.8. He has been afebrile, heart rate 99, blood pressure 90/63. TPN has been started. Amiodarone drip to be discontinued. alarm security or surveillance monitor is currently A. fib with controlled rate. 09/20 Patient remains in ICU, currently nothing by mouth, CHAVEZ drain has drained ov er 2 L in 24 hours, patient has been off pressors, urine output is normal, patient is still on TPN, patient still has abdominal discomfort, otherwise no chest pain no shortness of breath, no palpitations. Hemoglobin currently at 7.4 from an admitting hemoglobin of 9.4, iron studies to be done, agent has initial myelocytes on admission, creatinine 1.02 from 1.2, surgical incision is dry, there is stool output in the colostomy bag, patient remains on mechanical ventilator, unchanged and settings. Followed closely by pulmonary medicine, Cardizem drip was initiated for atrial fibrillation. Attempt to be made with weaning ventilatory support in a.m. : Postop day #5, he was given sedation holiday today, and was able to follow verbal commands, unable to wean today secondary to parameters from Dr. Red, patient went back to assist control mode of ventilation, Lasix was given 401 dose for CHF, pulmonary edema, blood pressure remains stable, negative balance of 1.3 L, urine output is good, has decreased output on the CHAVEZ drain, small amount of mucus stools today, still diminished bowel sounds currently nothing by mouth, general surgery following closely, 09/22: Patient remains intubated and on mechanical ventilation with tidal volume 550, FiO2 40, PEEP 5. Patient failed weaning attempt this morning. Patient is off vasopressors. He has been afebrile, heart rate 108, blood pressure 116/57. Repeat lab work reveals white count of 8.5, hemoglobin 7.8, platelet count 372. Sodium is 150, potassium 3.9, chloride 122, CO2 20, BUN 29 creatinine 0.92. Blood sugars run between 160 [birth year]1976. Phosphorus 3.4. Magnesium 2.4. Repeat chest x-ray this morning reveals persistent bilateral infiltrate and pleural effusion correlate for heart failure. Patient is maintained on Cardizem drip started over the weekend by installation drafter. The patient is also continued on TPN. No plan for tube feedings until extubated. Patient does have a liquid stool in ostomy. Urine output has been adequate. CHAVEZ drain remains in place. Consult for cardiology added for atrial fibrillation. 09/23: Repeat chest x-ray shows diffuse pleuroparenchymal changes are stable correlate for diffuse pneumonia versus heart failure. Chest ultrasound shows small left pleural effusion. Cardiology is following for atrial fibrillation. Patient is maintained on IV Cardizem and heparin. Blood pressure is currently controlled. Heart rate is also controlled. The temperature max 100.7, heart rate 98, blood pressure 126/83, pulse ox 93%. We have ordered pancultures including blood culture, sputum, urine, CHAVEZ drain cultures to be obtained. Patient is continued on sedation, intubation and mechanical ventilation. Tidal volume FiO2 550, FiO2 40, PEEP of 5. Repeat lab work reveals white count of 9.4, hemoglobin 7.6, count 372. Sodium 151, potassium 3.4, chloride 119, CO2 24, creatinine 0.94, BUN 27. Blood sugars running between 170 and 182. General surgery planning for wound VAC to the abdominal incision. Patient is now on IV Lasix [address] Mendoza is concern for evolving ARDS. Anticipate probable trach and PEG tube placement by the end of the week. 09/24: The patient remains intubated and on mechanical ventilation with tidal volume 550, FiO2 50%, PEEP 5. Patient remains on sedation. No low-grade fevers this morning. alarm security or surveillance monitor is A. fib with controlled rate in the 80s and 90s. Patient remains on Cardizem drip and heparin drip. Blood pressure is currently stable. Lasix is at 40 mg IV every 12 hours with noted decrease edema. Patient has good urine output, positive stool output. Patient has been started on Solu-Cortef. 09/25: Patient remains intubated and on mechanical ventilation with tidal volume 550, FiO2 40, PEEP 5. He is on norepinephrine. Patient is scheduled for trach and PEG tube tomorrow. NG tube is in place to suction. He still noted to have generalized anasarca and now hydrocele on the scrotum. Patient has been afebrile, heart rate 88, blood pressure 117/68. Repeat lab work reveals hemoglobin 7.5, WBC 9.4, hemoglobin 323. Sodium 146, potassium 3.6, chloride 114, CO2 24, BUN 26, creatinine 0.82. Blood sugars in the low 200s. Patient will be started on Levemir 6 units daily. 09/26: Patient remains in the intensive care unit, intubated and on mechanical ventilation with a 5 O2 of 40% and PEEP of 5. He is scheduled for PEG tube and trach placement today. Chest x-ray reveals diffuse pleuroparenchymal changes are stable and correlate for pneumonia versus heart failure. Patient remains on Cardizem and heparin drip for atrial fibrillation, controlled rate. The patient also continued on full, soft and Zosyn. Culture from CHAVEZ drain is positive for Staphylococcus epidermidis and gram-negative bacilli. Lasix currently at 40 mg IV every 8 hours and Solu-Cortef 50 mg IV every 12 hours. A blood sugars remain elevated and Levemir will be increased to 10 units. CHAVEZ drain was scant amount of drainage. Gastric tube remains in place. Wound VAC for abdominal wound. 09/27: Patient had trach placed yesterday but PEG tube was unsuccessful. He remains on mechanical ventilation with tidal volume 550, FiO2 45 and PEEP of 5. NG tube is in place. Patient is on TPN. He remains on Cardizem drip and to resume heparin drip later today. He is currently off sedation. Temperature max 100.4. Heart rate 150 with atrial fibrillation, respirations 26, blood pressure 95/61, pulse ox 95%. WBC 12.8, hemoglobin 8.2, platelet count 292. Sodium 142, potassium 4.2, chloride 108, CO2 23, BUN 20 creatinine 1.04. Blood sugars are r unning between 184 and 233. Magnesium 2.1 phosphorus 4.8. Today, cardiology has started the patient on amiodarone drip for rate control. Levemir will be increased 12 units daily. Repeat chest x-ray reveals no significant interval change. 09/28: Yesterday, patient became tachypneic and desaturated require going back on levo fed which is currently at 30 mics. Patient did not have any urine output or minimal output. He was started on amiodarone yesterday morning and heart rate decreased around 2 PM. Patient has received a total of 2500, rales fluid bolus. Lasix 1 dose was given last evening to 40 mg and he scheduled for 80 mg this morning. We will plan to start him on 80 mg every 12 hours. Patient was also started on Nimbex. CAT scan of the abdomen was done which revealed interval development of moderate bilateral pleural effusions with associated atelectasis or consolidation. Cardiomegaly, hepatomegaly. Ascites within the abdomen without definite abscess formation. Stable wedge compression fracture of T12. The patient's nurse relates that they did see a small amount of pus at the wound site and culture was obtained which is in progress. Patient is continued on amiodarone, Cardizem drip and heparin drip for atrial fibrillation. He has continued also on TPN. Temperature max in past 24 hours 100.4. Heart rate is currently 88, blood pressure 115/72. WBC 15.2, hemoglobin 7.4, platelet count 300. Sodium 139, potassium 5.4, chloride 108, BUN 42 and creatinine 1.96. Blood sugars in the 200s. Levemir will be increased to 15 units. 09/29 patient examined bedside continues to have significantly elevated creatinine with the improvement worsening of creatinine from 1.96-2.73 today. Patient's oxygen needs have worsened since yesterday with increase in FiO2 70%. Arterial blood class done today suggest a pH of 7.23 pO2 of 47 pCO2 of 40. Vitals are stable currently patient is off Levophed since 5 this morning urine output is still low at 10 mL per hour. Continue TPN at 55 mL per hour for. Patient's glucose this morning is 266. Will switch patient's insulin to insulin drip. Continue Lasix 80 IV twice a day. Nephrology is consulted and recommends sodium bicarb tablet along with PhosLo Objective - Vital Signs Vital signs: Vital Signs Temp 98.3 F 09/29/18 12:00 Pulse 105 H 09/29/18 12:30 Resp 40 H 09/29/18 12:30 BP 97/62 09/29/18 12:30 Pulse Ox 92 L 09/29/18 12:30 Intake & Output 09/28/18 09/29/18 09/29/18 18:59 06:59 18:59 Intake Total 6815.842 2851.495 1064.351 Output Total 1255 2220 485 Balance 5560.842 631.495 579.351 Weight 158.7 kg 158.7 kg Intake: IV 1403 1775 605 Cisatracurium 200 mg In 200 Sodium Chloride 0.9% 180 ml @ 1 MCG/KG/MIN 9.03 mls/hr IV .Q22H9M [facility] Rx# :[id number] Fluconazole in NaCl,Iso- 100 100 Osm 200 mg In Saline 1 100ml.bag @ 100 mls/hr IVPB DAILY [facility] Rx#: [id number] Meropenem 1 gm In Sodium 100 Chloride 0.9% 100 ml @ 200 mls/hr IVPB Q12H [facility] Rx#:[id number] Mvi, Adult No.4 with Vit 275 275 K 10 ml Trace (Conc-1Ml/ Dose) 1 ml Calcium Gluconate 1 gm Potassium Acetate 20 meq Sodium Acetate 20 meq Magnesium Sulfate gm 1 gm In Amino Acid 5%-D15w 1,000 ml @ 55 mls/hr IV .[id number] [facility] Rx#:[id number] Piperacillin-Tazobactam 3 200 .375 gm In Sodium Chloride 0.9% 100 ml @ 25 mls/hr IVPB Q8HR [facility] Rx# :[id number] Pressure Bag 3 Sodium Chloride 0.9% 1, 1100 1200 230 000 ml @ 100 mls/hr IV . Q10H [facility] Rx#:[id number] Intake, IV Titration 3552.842 976.495 399.351 Amount Cisatracurium 200 mg In 200 200 200 Sodium Chloride 0.9% 180 ml @ 1 MCG/KG/MIN 9.03 mls/hr IV .Q22H9M [facility] Rx# :[id number] Diltiazem 125 mg In 107 Sodium Chloride 0.9% 100 ml @ 5 MG/HR 5 mls/hr IV .Q24H [facility] Rx#:[id number] Heparin Sod,Pork in 0.45% 86.649 92.315 NaCl 25,000 unit In 0.45 % NaCl 1 250ml.bag @ 6.1 UNITS/KG/HR 9.998 mls/hr IV .Q24H [facility] Rx#: [id number] Insulin Regular 100 unit 7.036 In Sodium Chloride 0.9% 100 ml @ Per Protocol IV .Q0M [facility] Rx#:[id number] Mvi, Adult No.4 with Vit 385 165 K 10 ml Trace (Conc-1Ml/ Dose) 1 ml Calcium Gluconate 1 gm Potassium Acetate 20 meq Sodium Acetate 20 meq Magnesium Sulfate gm 1 gm In Amino Acid 5%-D15w 1,000 ml @ 55 mls/hr IV .[id number] [facility] Rx#:[id number] Mvi, Adult No.4 with Vit 1012.917 K 10 ml Trace (Conc-1Ml/ Dose) 1 ml Calcium Gluconate 1 gm Potassium Acetate 60 meq Magnesium Sulfate gm 1 gm In Amino Acid 5%-D15w 1,000 ml @ 55 mls/hr IV .Q19H9M [facility] Rx#:[id number] Mvi, Adult No.4 with Vit 110 K 10 ml Trace (Conc-1Ml/ Dose) 1 ml Calcium Gluconate 1 gm Potassium Acetate 60 meq Potassium Phosphate 15 mmol In Amino Acid 5%-D15w 1,000 ml @ 55 mls/hr IV . [id number] [facility] Rx#:[id number] Norepinephrine 8 mg In 351.762 259.142 Sodium Chloride 0.9% 250 ml @ 0.05 MCG/KG/MIN 14. 35 mls/hr IV .[id number] [facility] Rx#:[id number] Propofol 1,000 mg In 386.163 265.704 100 Empty Bag 1 bag @ Titrate IV .Q0M [facility] Rx#: [id number] Sodium Chloride 0.9% 1, 1000 000 ml @ 999 mls/hr IV . Q1H1M [facility] Rx#:[id number] Oral 1100 Tube Feeding 210 100 60 Other 550 Output: Drainage 700 1700 250 Abdomen 1200 250 Medial Abdomen 700 500 Urine 305 170 85 Stool 250 350 150 Other: Voiding Method Indwelling Catheter Indwelling Catheter Indwelling Catheter ABP, PAP, CO, CI - Last Documented Arterial Blood Pressure 112/52 - Exam Gen: This is a 72-year-old morbidly obese male. He is in the intensive care unit. Patient is intubated and on mechanical ventilation. Patient appears to be comfortable. HEENT: Head is atraumatic, normocephalic. Pupils equal, round. Sclerae is anicteric. NG tube in place to suction. Trach in place connected to mechanical ventilation. NECK: Supple. No JVD. No lymphadenopathy. No thyromegaly. LUNGS: Diminished bilaterally with scattered rhonchi. Patient appears comfortable. HEART: Irregular rate and rhythm. Systolic murmur. alarm security or surveillance monitor atrial fibrillation with RVR. ABDOMEN: Soft. Large. Normal bowel sounds are present. Colostomy in the left upper quadrant with stool output. There is a large mid abdominal incision with wound VAC. CHAVEZ drain. Foster catheter draining clear urine. EXTREMITIES: anasarca and 1+ bilateral pedal edema. Midline to right upper arm. NEUROLOGICAL: Patient is sedated. - Labs CBC & Chem 7: 09/29/18 04:40 09/29/18 04:40 Labs: Abnormal Lab Results - Last 24 Hours (Table) 09/28/18 09/28/18 09/29/18 Range/Units 18:21 23:20 04:40 WBC (3.8-10.6) k/uL RBC (4.30-5.90) m/uL Hgb (13.0-17.5) gm/dL Hct (39.0-53.0) % MCV (80.0-100.0) fL MCH (25.0-35.0) pg MCHC (31.0-37.0) g/dL RDW (11.5-15.5) % Neutrophils # (Manual) (1.3-7.7) k/uL Lymphocytes # (Manual) (1.0-4.8) k/uL Monocytes # (Manual) (0-1.0) k/uL Nucleated RBCs (0-0) /100 WBC APTT (22.0-30.0) sec ABG pH (7.35-7.45) ABG pO2 (83-108) mmHg ABG HCO3 (21-25) mmol/L ABG Total CO2 (19-24) mmol/L ABG O2 Saturation (94-97) % Sodium 135 L (137-145) mmol/L Potassium 5.4 H (3.5-5.1) mmol/L Carbon Dioxide 16 L (22-30) mmol/L BUN 60 H (9-20) mg/dL Creatinine 2.73 H (0.66-1.25) mg/dL Glucose 255 H (74-99) mg/dL POC Glucose (mg/dL) 219 H 269 H (75-99) mg/dL Calcium 7.3 L (8.4-10.2) mg/dL Phosphorus 7.5 H (2.5-4.5) mg/dL 09/29/18 09/29/18 09/29/18 Range/Units 04:40 04:40 04:57 WBC 12.7 H (3.8-10.6) k/uL RBC 4.00 L (4.30-5.90) m/uL Hgb 7.9 L (13.0-17.5) gm/dL Hct 29.8 L (39.0-53.0) % MCV 74.3 L (80.0-100.0) fL MCH 19.7 L (25.0-35.0) pg MCHC 26.5 L (31.0-37.0) g/dL RDW 22.0 H (11.5-15.5) % Neutrophils # (Manual) 10.67 H (1.3-7.7) k/uL Lymphocytes # (Manual) 0.89 L (1.0-4.8) k/uL Monocytes # (Manual) 1.14 H (0-1.0) k/uL Nucleated RBCs 6 H (0-0) /100 WBC APTT 62.9 H (22.0-30.0) sec ABG pH 7.23 L (7.35-7.45) ABG pO2 47 L* (83-108) mmHg ABG HCO3 17 L (21-25) mmol/L ABG Total CO2 18 L (19-24) mmol/L ABG O2 Saturation 89.5 L (94-97) % Sodium (137-145) mmol/L Potassium (3.5-5.1) mmol/L Carbon Dioxide (22-30) mmol/L BUN (9-20) mg/dL Creatinine (0.66-1.25) mg/dL Glucose (74-99) mg/dL POC Glucose (mg/dL) (75-99) mg/dL Calcium (8.4-10.2) mg/dL Phosphorus (2.5-4.5) mg/dL 09/29/18 09/29/18 09/29/18 Range/Units 06:10 10:11 11:47 WBC (3.8-10.6) k/uL RBC (4.30-5.90) m/uL Hgb (13.0-17.5) gm/dL Hct (39.0-53.0) % MCV (80.0-100.0) fL MCH (25.0-35.0) pg MCHC (31.0-37.0) g/dL RDW (11.5-15.5) % Neutrophils # (Manual) (1.3-7.7) k/uL Lymphocytes # (Manual) (1.0-4.8) k/uL Monocytes # (Manual) (0-1.0) k/uL Nucleated RBCs (0-0) /100 WBC APTT (22.0-30.0) sec ABG pH 7.24 L (7.35-7.45) ABG pO2 (83-108) mmHg ABG HCO3 18 L (21-25) mmol/L ABG Total CO2 (19-24) mmol/L ABG O2 Saturation 98.0 H (94-97) % Sodium (137-145) mmol/L Potassium (3.5-5.1) mmol/L Carbon Dioxide (22-30) mmol/L BUN (9-20) mg/dL Creatinine (0.66-1.25) mg/dL Glucose (74-99) mg/dL POC Glucose (mg/dL) 295 H 244 H (75-99) mg/dL Calcium (8.4-10.2) mg/dL Phosphorus (2.5-4.5) mg/dL 09/29/18 Range/Units 13:09 WBC (3.8-10.6) k/uL RBC (4.30-5.90) m/uL Hgb (13.0-17.5) gm/dL Hct (39.0-53.0) % MCV (80.0-100.0) fL MCH (25.0-35.0) pg MCHC (31.0-37.0) g/dL RDW (11.5-15.5) % Neutrophils # (Manual) (1.3-7.7) k/uL Lymphocytes # (Manual) (1.0-4.8) k/uL Monocytes # (Manual) (0-1.0) k/uL Nucleated RBCs (0-0) /100 WBC APTT (22.0-30.0) sec ABG pH (7.35-7.45) ABG pO2 (83-108) mmHg ABG HCO3 (21-25) mmol/L ABG Total CO2 (19-24) mmol/L ABG O2 Saturation (94-97) % Sodium (137-145) mmol/L Potassium (3.5-5.1) mmol/L Carbon Dioxide (22-30) mmol/L BUN (9-20) mg/dL Creatinine (0.66-1.25) mg/dL Glucose (74-99) mg/dL POC Glucose (mg/dL) 266 H (75-99) mg/dL Calcium (8.4-10.2) mg/dL Phosphorus (2.5-4.5) mg/dL Microbiology - Last 24 Hours (Table) 09/27/18 10:36 Blood Culture - Preliminary Blood No Growth after 48 hours 09/24/18 00:40 Blood Culture - Preliminary Blood No Growth after 120 hours Assessment and Plan Plan: 1. Abdominal pain secondary to perforated gastric ulcer, ischemic colon at the splenic flexure with bowel obstruction status post exploratory laparotomy, lysis of adhesions, repair of gastric ulcer, transverse colectomy and takedown of the splenic flexure. Continue fluconazole, on daptomycin and meropenem. Dr. Benedict consult appreciated. The patient has been seen by ostomy nurse. Trach performed on saturday, PEG couldnot be performed. 2. Septic shock status post IV fluid resuscitation nd off vasopressors. Patient is on Nimbex, pressure maintained off pressors 3. Acute on chronic hypoxic respiratory failure secondary to above. Patient is currently intubated and on mechanical ventilation. Patient is managed by Dr. Mendoza. Dr. Mendoza concern for ARDS. Trach placement on 09/26 4. Acute kidney injury secondary to shock and ATN. Continue to monitor closely 5. Lactic acidosis. 6. Paroxysmal atrial fibrillation with A. fib RVR. Eliquis is on hold. Patient is status post Kcentra for reversal of eliquis. Continue Cardizem drip and Amiodarone dripdiscontinued Continue heparin drip. Rate is currently co ntrolled 7. Acute and chronic diastolic heart failure and generalized anasarca. IV Lasix 80 mg iv bi d. Patient is status post albumin. 8. Severe COPD, stable. 9. Obstructive sleep apnea with CPAP, noncompliance. 10. Mild intermittent asthma, stable. 11. Hyperlipidemia. 12. Gastroesophageal reflux disease and GI prophylaxis. Continue Protonix 40 mg IV daily. 13. Diabetes mellitus type 2 uncontrolled with hyperglycemia secondary to steroids. switched to insulin drip 14. Severe protein calorie malnutrition due to nothing by mouth status. Patient on TPN. 15. Left atrial appendage thrombus found on MIKE during last admission. on heparin drip 16. Hypernatremia and hyperchloremia. 17. Adrenal insufficiency secondary to illness. Patient has been started on hydrocortef 50 mg IV every 12 hours. Prognosis poor. Discharge plan: [facility] next week.
[2018-09-29] MEDS: DILTIAZEM 125 MG in SODIUM CHLORIDE 0.9% 100 ML IV SCH (15:13)
[2018-09-29 15:22] LABS: Glucose,Whole Blood 223 mg/dL (75-99)
--- NOTE | 2018-09-29 15:50 | IR ---
PICC LINE PLACEMENT: HISTORY: Infection requiring long-term antibiotic therapy PROCEDURE: Ultrasound guidance of PICC line placement. ABORIGINAL CEREMONIAL CELEBRANT: Dr. Roberts. COMPLICATIONS: None ANESTHESIA: 1. 1% Lidocaine locally. FINDINGS/TECHNIQUE: The procedure was explained to the patient. The risks, complications, benefits and alternatives were discussed and any questions were answered. Informed consent was obtained. The patient was placed supine on the fluoroscopic table and prepped and draped in the usual sterile [facility] ion. Utilizing a 21 gauge needle and sonographic guidance, access in the left cephalic vein was ach ieved and there is placement of a 0.018 guidewire. The vein is patent. A 5-F. sheath was placed ove r the guidewire. The guidewire and dilator were removed and a 5-F. Double lumen PICC line was placed through the sheath with the chest x-ray confirming the tip at the level of the SVC. The sheath was removed, the catheter was flushed and sutured into position. The patient was stable throughout the p rocedure and remained stable upon discharge from the Department of Radiology. The vein puncture was patent under ultrasound. A waters scale image was obtained to document patency of the vein punctured. All elements of the maximal barrier technique were utilized. IMPRESSION: 1. Successful PICC line placement under ultrasound performed bedside within the ICU.
[2018-09-29 16:28] LABS: Glucose,Whole Blood 220 mg/dL (75-99)
--- NOTE | 2018-09-29 17:00 | PN ---
PROGRESS NOTE DATE OF SERVICE: 09/29/2018. REASON FOR FOLLOWUP: 1. Abdominal sepsis from a perforated peptic ulcer and ischemic splenic flexure. 2. New fever with question of possible line sepsis. INTERVAL HISTORY: The patient's overall fever pattern has improved. No temperature has been recorded in the last 24 hours. The patient is hemodynamically more stable, requiring less pressor support. The patient remains intubated on the vent. FiO2 is currently up to 70%. He is tolerating his tube feeds. No significant diarrhea per the nursing staff. Remains intubated, sedated, unable to provide history; most of the information is obtained from the family and the RN present at the bedside. PHYSICAL EXAMINATION: Blood pressure 137/74 with a pulse of 112, temperature 98. He is 94% on 70% FiO2. General description is an elderly male lying in bed in no distress. RESPIRATORY SYSTEM: Unlabored breathing. Coarse breath sounds in the bases. No wheeze. HEART: S1, S2. Regular rate and rhythm. ABDOMEN: Soft. wound V.A.C. is intact. EXTREMITIES: Some trace edema of the feet. LABS: Hemoglobin 7.9, white count 12.7, BUN of 60, creatinine is 2.73. Blood cultures with E coli that is resistant to Zosyn though sensitive to ceftriaxone, and mucor species. DIAGNOSTIC IMPRESSION AND PLAN: Patient with abdominal sepsis in this patient who did have perforated peptic ulcer disease, also with ischemic splenic flexure, status post laparotomy, extensive surgery and diverting colostomy. The patient subsequently did have abdominal cultures obtained from some of the drainage showing an E coli that is resistant to Zosyn. The patient is already showing a mucor species. However, the patient did have a CT of abdomen and pelvis which did not show any evidence of any abscess. 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 With no evidence of any abscess abnormality and the patient showing clinical improvement with resolution of fever, will have to wait for the final ID of this pathogen, as most of the time these fungus abdominal cultures have been misidentified by the micro lab. We will continue the patient on vancomycin and daptomycin that was started yesterday while monitoring his clinical course closely. The central line will be discontinued and tip will be sent for culture. Overall prognosis remains guarded. Family at the bedside. Their questions were answered. MMODL / IJN: [id number] / LINDA
[2018-09-29 17:56] LABS: Calcium 7.7 mg/dL (8.4-10.2); Potassium 5.6 mmol/L (3.5-5.1)
[2018-09-29 18:18] LABS: Glucose,Whole Blood 214 mg/dL (75-99)
[2018-09-29 19:40] LABS: Glucose,Whole Blood 241 mg/dL (75-99)
[2018-09-29] MEDS ORDERED: MVI, ADULT NO.4 WITH VIT K 10 ML, TRACE (CONC-1ML/DOSE) 1 ML, CALCIUM GLUCONATE 1 GM, S... IV SCH ×6 (22:00)
[2018-09-29] MEDS ORDERED: INSULIN REGULAR 100 UNIT/ML VIAL IV ONE (22:01)
[2018-09-29] MEDS ORDERED: SODIUM BICARB 8.4% 50 ML SYR (1 MEQ/ML) ONE (22:19)
[2018-09-29 22:46] LABS: Glucose,Whole Blood 197 mg/dL (75-99)
[2018-09-29] MEDS ORDERED: DEXTROSE 50% SYRINGE 50 ML IVP STA (22:56)
[2018-09-29 23:19] LABS: Glucose,Whole Blood 252 mg/dL (75-99)
[2018-09-29 23:54] LABS: Glucose,Whole Blood 243 mg/dL (75-99)
[2018-09-30] MEDS: HYDROmorphone 1 MG/ML 1 ML SYRINGE IVP SCH ×7 (00:50→23:46)
[2018-09-30] MEDS: MEROPENEM 1 GM in SODIUM CHLORIDE 0.9% 100 ML IVPB SCH ×3 (00:50→23:46)
[2018-09-30] MEDS ORDERED: SODIUM BICARB 8.4% 50 ML SYR (1 MEQ/ML) IV STA ×2 (01:02→05:17)
[2018-09-30] MEDS ORDERED: DEXTROSE 50% SYRINGE 50 ML IVP STA (01:03)
[2018-09-30] MEDS ORDERED: INSULIN REGULAR 100 UNIT/ML VIAL IV ONE (01:03)
[2018-09-30 01:25] LABS: Glucose,Whole Blood 188 mg/dL (75-99)
[2018-09-30 02:28] LABS: Glucose,Whole Blood 207 mg/dL (75-99)
[2018-09-30 02:28] LABS: Glucose,Whole Blood 209 mg/dL (75-99)
[2018-09-30 02:28] LABS: Glucose,Whole Blood 525 mg/dL (75-99)
[2018-09-30] MEDS: IPRATROPIUM-ALBUTEROL 3 ML NEB INHALATION SCH ×6 (03:03→23:12)
[2018-09-30 03:32] LABS: Glucose,Whole Blood 186 mg/dL (75-99)
[2018-09-30 04:18] LABS: Glucose,Whole Blood 188 mg/dL (75-99)
[2018-09-30 04:54] LABS: Anisocytosis Moderate; HCT 28.5 % (39.0-53.0); HGB 7.3 gm/dL (13.0-17.5); Hypochromasia Marked; MCH 18.1 pg (25.0-35.0); MCHC 25.5 g/dL (31.0-37.0); Mean Platelet Volume 6.7; Microcytosis Marked; Platelet Count 349 k/uL (150-450); Poikilocytosis Moderate; RBC 4.01 m/uL (4.30-5.90); RDW 22.9 % (11.5-15.5)
[2018-09-30] MEDS: PROPOFOL 1,000 MG in EMPTY BAG 1 BAG IV SCH ×7 (04:58→23:35)
[2018-09-30 05:01] LABS: ABG Base Excess -6.8 mmol/L; ABG HCO3 22 mmol/L (21-25); ABG Oxygen Saturation 91.9 % (94-97); ABG PCO2 57 mmHg (35-45); ABG TCO2 23 mmol/L (19-24); Allen Test Performed? Yes
[2018-09-30 05:05] LABS: ABG PH 7.19 (7.35-7.45)
[2018-09-30 05:14] LABS: Glucose,Whole Blood 180 mg/dL (75-99)
[2018-09-30] MEDS: INSULIN REGULAR 100 UNIT in SODIUM CHLORIDE 0.9% 100 ML IV SCH (05:24)
[2018-09-30 05:31] LABS: Calcium 7.8 mg/dL (8.4-10.2); Magnesium 2.4 mg/dL (1.6-2.3); Phosphorus 8.7 mg/dL (2.5-4.5); Potassium 5.3 mmol/L (3.5-5.1)
[2018-09-30 05:41] LABS: Band Neutrophils % 2 %; Metamyelocytes % 1 %; Neutrophils % (M) 83 %; Nucleated Red Blood Cells 9 /100 WBC (0-0); Total Cells Counted 200
[2018-09-30 05:42] LABS: Eosinophils # (M) 0.12 k/uL (0-0.7); Metamyelocytes # (M) 0.12 k/uL (0); Monocytes # (M) 0.94 k/uL (0-1.0); WBC 11.7 k/uL (3.8-10.6)
[2018-09-30 05:43] LABS: Anisocytosis (M) Present; Poikilocytosis (M) Present; Polychromasia Present
[2018-09-30 06:26] LABS: Glucose,Whole Blood 195 mg/dL (75-99)
[2018-09-30 07:12] LABS: Glucose,Whole Blood 177 mg/dL (75-99)
--- NOTE | 2018-09-30 07:13 | P.PN ---
Subjective Progress Note Date: 09/30/18 Principal diagnosis: Atrial fibrillation/persistent This is a 72-year-old gentleman with a past medical history significant for morbid obesity, chronic atrial fibrillation, chronic diastolic congestive heart failure, as well as multiple comorbid conditions, who was admitted to the hospital with perforated peptic ulcer and he underwent exploratory laparotomy. We get involved in his care for the management of atrial fibrillation. On follow-up with the patient today, 09/30/2018, the patient continues to be in atrial fibrillation with a relatively controlled heart rate on the current dose of Cardizem IV which is 10 mg. Otherwise and overall he is not doing well. He continues to be in renal failure. He is very significant. The chest x-ray continues to show findings consistent with heart failure. Possibly the patient might indicate having discomfort care. Objective - Vital Signs Vital signs: Vital Signs Temp 98 F 09/30/18 04:00 Pulse 95 09/30/18 06:00 Resp 42 H 09/30/18 06:00 BP 104/61 09/30/18 06:00 Pulse Ox 99 09/30/18 06:00 Intake & Output 09/29/18 09/30/18 09/30/18 18:59 06:59 18:59 Intake Total 2635.928 1658.912 Output Total 2850 1448 Balance -214.072 210.912 Weight 158.7 kg 162.3 kg Intake: IV 1105 880 .9 110 Fluconazole in NaCl,Iso- 100 Osm 200 mg In Saline 1 100ml.bag @ 100 mls/hr IVPB DAILY [facility] Rx#: [id number] Meropenem 1 gm In Sodium 100 100 Chloride 0.9% 100 ml @ 200 mls/hr IVPB Q12H [facility] Rx#:[id number] Mvi, Adult No.4 with Vit 605 660 K 10 ml Trace (Conc-1Ml/ Dose) 1 ml Calcium Gluconate 1 gm Potassium Acetate 20 meq Sodium Acetate 20 meq Magnesium Sulfate gm 1 gm In Amino Acid 5%-D15w 1,000 ml @ 55 mls/hr IV .[id number] [facility] Rx#:[id number] Sodium Chloride 0.9% 1, 300 10 000 ml @ 100 mls/hr IV . Q10H [facility] Rx#:[id number] Intake, IV Titration 680.928 368.912 Amount Cisatracurium 200 mg In 200 Sodium Chloride 0.9% 180 ml @ 1 MCG/KG/MIN 9.03 mls/hr IV .Q22H9M [facility] Rx# :[id number] Diltiazem 125 mg In 125 Sodium Chloride 0.9% 100 ml @ 5 MG/HR 5 mls/hr IV .Q24H [facility] Rx#:[id number] Heparin Sod,Pork in 0.45% 92.315 130.474 NaCl 25,000 unit In 0.45 % NaCl 1 250ml.bag @ 6.1 UNITS/KG/HR 9.998 mls/hr IV .Q24H [facility] Rx#: [id number] Insulin Regular 100 unit 63.613 138.438 In Sodium Chloride 0.9% 100 ml @ Per Protocol IV .Q0M [facility] Rx#:[id number] Propofol 1,000 mg In 200 100 Empty Bag 1 bag @ Titrate IV .Q0M [facility] Rx#: [id number] Oral 670 Tube Feeding 180 210 Other 200 Output: Drainage 2400 1350 Abdomen 1400 500 Medial Abdomen 1000 850 Urine 150 98 Stool 300 Other: Voiding Method Indwelling Catheter Indwelling Catheter ABP, PAP, CO, CI - Last Documented Arterial Blood Pressure 112/52 - Constitutional General appearance: Present: no acute distress - Respiratory Respiratory: bilateral: diminished - Cardiovascular Rhythm: irregularly irregular - Labs CBC & Chem 7: 09/30/18 04:35 09/30/18 04:35 Labs: Abnormal Lab Results - Last 24 Hours (Table) 09/29/18 09/29/18 09/29/18 Range/Units 10:11 11:47 13:09 WBC (3.8-10.6) k/uL RBC (4.30-5.90) m/uL Hgb (13.0-17.5) gm/dL Hct (39.0-53.0) % MCV (80.0-100.0) fL MCH (25.0-35.0) pg MCHC (31.0-37.0) g/dL RDW (11.5-15.5) % Neutrophils # (Manual) (1.3-7.7) k/uL Lymphocytes # (Manual) (1.0-4.8) k/uL Metamyelocytes # (Man) (0) k/uL Nucleated RBCs (0-0) /100 WBC APTT (22.0-30.0) sec ABG pH 7.24 L (7.35-7.45) ABG pCO2 (35-45) mmHg ABG pO2 (83-108) mmHg ABG HCO3 18 L (21-25) mmol/L ABG O2 Saturation 98.0 H (94-97) % Sodium (137-145) mmol/L Potassium (3.5-5.1) mmol/L Carbon Dioxide (22-30) mmol/L BUN (9-20) mg/dL Creatinine (0.66-1.25) mg/dL Glucose (74-99) mg/dL POC Glucose (mg/dL) 244 H 266 H (75-99) mg/dL Calcium (8.4-10.2) mg/dL Phosphorus (2.5-4.5) mg/dL Magnesium (1.6-2.3) mg/dL 09/29/18 09/29/18 09/29/18 Range/Units 14:04 15:20 16:26 WBC (3.8-10.6) k/uL RBC (4.30-5.90) m/uL Hgb (13.0-17.5) gm/dL Hct (39.0-53.0) % MCV (80.0-100.0) fL MCH (25.0-35.0) pg MCHC (31.0-37.0) g/dL RDW (11.5-15.5) % Neutrophils # (Manual) (1.3-7.7) k/uL Lymphocytes # (Manual) (1.0-4.8) k/uL Metamyelocytes # (Man) (0) k/uL Nucleated RBCs (0-0) /100 WBC APTT (22.0-30.0) sec ABG pH (7.35-7.45) ABG pCO2 (35-45) mmHg ABG pO2 (83-108) mmHg ABG HCO3 (21-25) mmol/L ABG O2 Saturation (94-97) % Sodium (137-145) mmol/L Potassium (3.5-5.1) mmol/L Carbon Dioxide (22-30) mmol/L BUN (9-20) mg/dL Creatinine (0.66-1.25) mg/dL Glucose (74-99) mg/dL POC Glucose (mg/dL) 243 H 223 H 220 H (75-99) mg/dL Calcium (8.4-10.2) mg/dL Phosphorus (2.5-4.5) mg/dL Magnesium (1.6-2.3) mg/dL 09/29/18 09/29/18 09/29/18 Range/Units 17:00 18:17 19:38 WBC (3.8-10.6) k/uL RBC (4.30-5.90) m/uL Hgb (13.0-17.5) gm/dL Hct (39.0-53.0) % MCV (80.0-100.0) fL MCH (25.0-35.0) pg MCHC (31.0-37.0) g/dL RDW (11.5-15.5) % Neutrophils # (Manual) (1.3-7.7) k/uL Lymphocytes # (Manual) (1.0-4.8) k/uL Metamyelocytes # (Man) (0) k/uL Nucleated RBCs (0-0) /100 WBC APTT (22.0-30.0) sec ABG pH (7.35-7.45) ABG pCO2 (35-45) mmHg ABG pO2 (83-108) mmHg ABG HCO3 (21-25) mmol/L ABG O2 Saturation (94-97) % Sodium 135 L (137-145) mmol/L Potassium 5.6 H (3.5-5.1) mmol/L Carbon Dioxide 15 L (22-30) mmol/L BUN 66 H (9-20) mg/dL Creatinine 3.39 H (0.66-1.25) mg/dL Glucose 204 H (74-99) mg/dL POC Glucose (mg/dL) 214 H 241 H (75-99) mg/dL Calcium 7.7 L (8.4-10.2) mg/dL Phosphorus (2.5-4.5) mg/dL Magnesium (1.6-2.3) mg/dL 09/29/18 09/29/18 09/29/18 Range/Units 22:34 23:16 23:53 WBC (3.8-10.6) k/uL RBC (4.30-5.90) m/uL Hgb (13.0-17.5) gm/dL Hct (39.0-53.0) % MCV (80.0-100.0) fL MCH (25.0-35.0) pg MCHC (31.0-37.0) g/dL RDW (11.5-15.5) % Neutrophils # (Manual) (1.3-7.7) k/uL Lymphocytes # (Manual) (1.0-4.8) k/uL Metamyelocytes # (Man) (0) k/uL Nucleated RBCs (0-0) /100 WBC APTT (22.0-30.0) sec ABG pH (7.35-7.45) ABG pCO2 (35-45) mmHg ABG pO2 (83-108) mmHg ABG HCO3 (21-25) mmol/L ABG O2 Saturation (94-97) % Sodium (137-145) mmol/L Potassium (3.5-5.1) mmol/L Carbon Dioxide (22-30) mmol/L BUN (9-20) mg/dL Creatinine (0.66-1.25) mg/dL Glucose (74-99) mg/dL POC Glucose (mg/dL) 197 H 252 H 243 H (75-99) mg/dL Calcium (8.4-10.2) mg/dL Phosphorus (2.5-4.5) mg/dL Magnesium (1.6-2.3) mg/dL 09/30/18 09/30/18 09/30/18 Range/Units 00:01 01:13 02:12 WBC (3.8-10.6) k/uL RBC (4.30-5.90) m/uL Hgb (13.0-17.5) gm/dL Hct (39.0-53.0) % MCV (80.0-100.0) fL MCH (25.0-35.0) pg MCHC (31.0-37.0) g/dL RDW (11.5-15.5) % Neutrophils # (Manual) (1.3-7.7) k/uL Lymphocytes # (Manual) (1.0-4.8) k/uL Metamyelocytes # (Man) (0) k/uL Nucleated RBCs (0-0) /100 WBC APTT (22.0-30.0) sec ABG pH (7.35-7.45) ABG pCO2 (35-45) mmHg ABG pO2 (83-108) mmHg ABG HCO3 (21-25) mmol/L ABG O2 Saturation (94-97) % Sodium (137-145) mmol/L Potassium 5.6 H (3.5-5.1) mmol/L Carbon Dioxide (22-30) mmol/L BUN (9-20) mg/dL Creatinine (0.66-1.25) mg/dL Glucose (74-99) mg/dL POC Glucose (mg/dL) 188 H 525 H (75-99) mg/dL Calcium (8.4-10.2) mg/dL Phosphorus (2.5-4.5) mg/dL Magnesium (1.6-2.3) mg/dL 09/30/18 09/30/18 09/30/18 Range/Units 02:14 02:16 03:20 WBC (3.8-10.6) k/uL RBC (4.30-5.90) m/uL Hgb (13.0-17.5) gm/dL Hct (39.0-53.0) % MCV (80.0-100.0) fL MCH (25.0-35.0) pg MCHC (31.0-37.0) g/dL RDW (11.5-15.5) % Neutrophils # (Manual) (1.3-7.7) k/uL Lymphocytes # (Manual) (1.0-4.8) k/uL Metamyelocytes # (Man) (0) k/uL Nucleated RBCs (0-0) /100 WBC APTT (22.0-30.0) sec ABG pH (7.35-7.45) ABG pCO2 (35-45) mmHg ABG pO2 (83-108) mmHg ABG HCO3 (21-25) mmol/L ABG O2 Saturation (94-97) % Sodium (137-145) mmol/L Potassium (3.5-5.1) mmol/L Carbon Dioxide (22-30) mmol/L BUN (9-20) mg/dL Creatinine (0.66-1.25) mg/dL Glucose (74-99) mg/dL POC Glucose (mg/dL) 207 H 209 H 186 H (75-99) mg/dL Calcium (8.4-10.2) mg/dL Phosphorus (2.5-4.5) mg/dL Magnesium (1.6-2.3) mg/dL 09/30/18 09/30/18 09/30/18 Range/Units 04:06 04:35 04:35 WBC 11.7 H (3.8-10.6) k/uL RBC 4.01 L (4.30-5.90) m/uL Hgb 7.3 L (13.0-17.5) gm/dL Hct 28.5 L (39.0-53.0) % MCV 71.0 L (80.0-100.0) fL MCH 18.1 L (25.0-35.0) pg MCHC 25.5 L (31.0-37.0) g/dL RDW 22.9 H (11.5-15.5) % Neutrophils # (Manual) 9.90 H (1.3-7.7) k/uL Lymphocytes # (Manual) 0.70 L (1.0-4.8) k/uL Metamyelocytes # (Man) 0.12 H (0) k/uL Nucleated RBCs 9 H (0-0) /100 WBC APTT (22.0-30.0) sec ABG pH (7.35-7.45) ABG pCO2 (35-45) mmHg ABG pO2 (83-108) mmHg ABG HCO3 (21-25) mmol/L ABG O2 Saturation (94-97) % Sodium (137-145) mmol/L Potassium 5.3 H (3.5-5.1) mmol/L Carbon Dioxide 19 L (22-30) mmol/L BUN 73 H (9-20) mg/dL Creatinine 3.68 H (0.66-1.25) mg/dL Glucose 173 H (74-99) mg/dL POC Glucose (mg/dL) 188 H (75-99) mg/dL Calcium 7.8 L (8.4-10.2) mg/dL Phosphorus 8.7 H (2.5-4.5) mg/dL Magnesium 2.4 H (1.6-2.3) mg/dL 09/30/18 09/30/18 09/30/18 Range/Units 04:56 05:02 06:14 WBC (3.8-10.6) k/uL RBC (4.30-5.90) m/uL Hgb (13.0-17.5) gm/dL Hct (39.0-53.0) % MCV (80.0-100.0) fL MCH (25.0-35.0) pg MCHC (31.0-37.0) g/dL RDW (11.5-15.5) % Neutrophils # (Manual) (1.3-7.7) k/uL Lymphocytes # (Manual) (1.0-4.8) k/uL Metamyelocytes # (Man) (0) k/uL Nucleated RBCs (0-0) /100 WBC APTT (22.0-30.0) sec ABG pH 7.19 L* (7.35-7.45) ABG pCO2 57 H (35-45) mmHg ABG pO2 56 L* (83-108) mmHg ABG HCO3 (21-25) mmol/L ABG O2 Saturation 91.9 L (94-97) % Sodium (137-145) mmol/L Potassium (3.5-5.1) mmol/L Carbon Dioxide (22-30) mmol/L BUN (9-20) mg/dL Creatinine (0.66-1.25) mg/dL Glucose (74-99) mg/dL POC Glucose (mg/dL) 180 H 195 H (75-99) mg/dL Calcium (8.4-10.2) mg/dL Phosphorus (2.5-4.5) mg/dL Magnesium (1.6-2.3) mg/dL 09/30/18 Range/Units 06:30 WBC (3.8-10.6) k/uL RBC (4.30-5.90) m/uL Hgb (13.0-17.5) gm/dL Hct (39.0-53.0) % MCV (80.0-100.0) fL MCH (25.0-35.0) pg MCHC (31.0-37.0) g/dL RDW (11.5-15.5) % Neutrophils # (Manual) (1.3-7.7) k/uL Lymphocytes # (Manual) (1.0-4.8) k/uL Metamyelocytes # (Man) (0) k/uL Nucleated RBCs (0-0) /100 WBC APTT 66.6 H (22.0-30.0) sec ABG pH (7.35-7.45) ABG pCO2 (35-45) mmHg ABG pO2 (83-108) mmHg ABG HCO3 (21-25) mmol/L ABG O2 Saturation (94-97) % Sodium (137-145) mmol/L Potassium (3.5-5.1) mmol/L Carbon Dioxide (22-30) mmol/L BUN (9-20) mg/dL Creatinine (0.66-1.25) mg/dL Glucose (74-99) mg/dL POC Glucose (mg/dL) (75-99) mg/dL Calcium (8.4-10.2) mg/dL Phosphorus (2.5-4.5) mg/dL Magnesium (1.6-2.3) mg/dL Microbiology - Last 24 Hours (Table) 09/24/18 00:40 Blood Culture - Final Blood No Growth after 144 hours 09/29/18 15:45 Catheter Tip Culture - Preliminary Catheter Tip 09/27/18 10:10 Gram Stain - Preliminary Abdomen Wound Culture - Preliminary Escherichia coli Mucor species 09/27/18 10:10 Anaerobic Culture - Preliminary Abdomen 09/27/18 10:36 Blood Culture - Preliminary Blood No Growth after 48 hours Assessment and Plan Assessment: Assessment #1 perforated peptic ulcer #2 status post surgery #3 chronic persistent atrial fibrillation #4 morbid obesity #5 acute renal failure #6 multiple comorbid conditions Plan #1 continue Cardizem IV at this point #2 continue anticoagulation with heparin IV #3 follow-up with the patient
[2018-09-30] MEDS: NOREPINEPHRINE 8 MG in SODIUM CHLORIDE 0.9% 250 ML IV SCH ×2 (07:26→18:22)
[2018-09-30] MEDS: CALCIUM ACETATE 667 MG CAP PO SCH ×3 (07:28→17:20)
[2018-09-30 08:02] LABS: ABG Base Excess -5.3 mmol/L; ABG HCO3 22 mmol/L (21-25); ABG Oxygen Saturation 98.9 % (94-97); ABG PCO2 53 mmHg (35-45); ABG PH 7.23 (7.35-7.45); ABG PO2 124 mmHg (83-108); ABG TCO2 24 mmol/L (19-24); Allen Test Performed? Yes
[2018-09-30 08:16] LABS: Glucose,Whole Blood 164 mg/dL (75-99)
--- NOTE | 2018-09-30 08:18 | PN ---
PROGRESS NOTE This is a pulmonary/critical care progress note. DATE OF SERVICE: September 30, 2018 CRITICAL CARE TIME: 35 minutes. This is a patient who was admitted back on September 16 for ischemic bowel and perforated ulcer. He went to the operating room on the day of admission, had a gastric ulcer repair, lysis of adhesions, and transverse colectomy. The patient has been intubated since the surgery on September 16 and had a tracheostomy performed on September 26 for failure to wean. He currently remains on the ventilator. I had a long discussion with the family yesterday. I did explain to them that his overall prognosis was very poor. The patient has seen multiple specialists including Cardiology, Infectious Disease, Nephrology, Surgery and Critical Care among others. The patient really has not made any significant progress and actually in the last couple days since I have been seeing has actually gone in the wrong direction. This morning, I was called with very poor gases. His FiO2 was increased to 100%. He did receive some additional sodium bicarbonate for profound metabolic acidosis. Anyway, the patient is on the volume assist-control mode with a rate of 40, tidal volume 500, FiO2 100%, PEEP of 10. Initially on 70% FiO2, gases showed a pO2 of 56, a pCO2 of 57, and pH 7.185. These gases consistent with combined respiratory and metabolic acidosis. He did receive 2 amps of bicarb for those blood gases and his FiO2 was increased from 70% to 100%. In addition, he is on a number of drips including saline at 10 mL an hour, TPN at 55 mL an hour, Diprivan at 40 mcg/kg per minute, Cardizem at 10 mg an hour, heparin via weight based protocol, Nimbex at 2 mcg/kg per minute, and an insulin drip of 11.5 units an hour. I did ask the nurse to repeat the blood gases. In addition, the patient has a history of acute tubular necrosis, multiorgan system failure, abdominal sepsis, paroxysmal atrial fibrillation, COPD, diastolic heart failure, failure to wean from mechanical ventilation, diabetes mellitus, and probable critical illness polyneuropathy. The patient's oxygenation and PEEP levels also supported diagnosis of acute lung injury/ARDS. Currently he is being treated with daptomycin, meropenem and Diflucan for E coli and Staph epidermidis which grew out from wound cultures. Again, his overall prognosis is very poor. PHYSICAL EXAMINATION: VITAL SIGNS: Vital signs are reviewed. Current vital signs include temperature which is 98 degrees, heart rate which is 87, respiratory rate 40, blood pressure 91/52, mean 65 and a saturation of 98%. Appears no acute distress. The patient is currently sedated and paralyzed. HEENT: Examination is grossly unremarkable. There is no orally placed endotracheal tube and NG tube. NECK: Supple. Full range of motion. No adenopathy, thyromegaly or neck vein distention. CARDIOVASCULAR: Examination reveals a heart rate about 90 beats per minute. It is regular. No distinct murmur noted. Heart sounds are distant. LUNGS: Reveal coarse bilateral rhonchi. There are expiratory crackles. No wheezes. Breath sounds diminished throughout. ABDOMEN: Soft. No bowel sounds are noted. EXTREMITIES: Are intact. No edema is noted. In fact, he has got diffuse edema and anasarca throughout. SKIN: Is without significant rash. NEUROLOGIC: Examination cannot be adequately assessed. Microbiologic studies show E coli and Mucor species in his wound cultures from the abdomen. In addition, his Edwin-Harris drain is draining Staph epidermidis and E coli. LABS: Labs are reviewed. His white count 11.7, hemoglobin 7.3, hematocrit 28.5, platelet count 349,000. Blood gases have been noted. PTT 66.6. Sodium 138, potassium 5.6, chloride 102, CO2 of 19. Anion gap is 17. BUN and creatinine were 73 and 3.68. Magnesium is 2.4. MEDICATIONS: Medications are reviewed. From antibiotic standpoint, the patient is currently on daptomycin, fluconazole and meropenem. The other medications are appropriate. X-RAY: His chest x-ray from this morning shows diffuse bilateral infiltrates. There is either fluid atelectasis or infiltrates at both bases. Tracheostomy tube is noted. Central line has been replaced with a PICC line. ASSESSMENT: 1. Chronic hypoxemic respiratory failure with failure to wean from mechanical ventilation with initial intubation on September 16 and subsequent tracheostomy on September 26. 2. Postoperative day #14, status post exploratory laparotomy, lysis of adhesions, repair of gastric for ulcer and transverse colectomy. 3. Abdominal sepsis with septic shock. 4. Acute hypoxemic respiratory failure with ARDS secondary to sepsis. 5. Acute kidney injury/acute tubular necrosis. 6. Possible abdominal compartment syndrome. 7. Paroxysmal atrial fibrillation. 8. Chronic obstructive pulmonary disease. 9. Status post tracheostomy on September 26, postop day #4. 10.Acute diastolic heart failure. 11.Anion gap metabolic acidosis. 12.Failure to wean from mechanical ventilation. 13.Diabetes mellitus. 14.Chronic hypoxemic respiratory failure with worsening oxygenation. 15.Critical illness polyneuropathy. 16.Escherichia coli and Staphylococcus epidermidis sepsis. PLAN: The patient's overall prognosis is very poor. Blood gases continue to show a profound metabolic acidosis despite multiple infusions of sodium bicarbonate. The patient is also much more hypoxemic and had to be increased up to 100%. The patient is currently sedated and paralyzed with Diprivan and Nimbex respectively. He is receiving insulin drip for blood sugar control. He is on Cardizem IV for atrial fibrillation. He is getting heparin IV for atrial fibrillation. I did have a long conversation with the and other family members yesterday. I did point out his overall poor prognosis. They are going to give some consideration to possibly a DNR status and/or withdraw life support and comfort measures. The seems more ready to make that decision than some other family members. We will continue to talk to them. I did speak to the surgeon who agrees that the prognosis is very poor. We will continue to follow. CRITICAL CARE TIME: 35 minutes. ROSEY / SETH: [id number] /
--- NOTE | 2018-09-30 08:24 | XR ---
EXAMINATION TYPE: XR chest 1V portable DATE OF EXAM: 09/30/2018 COMPARISON: 09/29/2018 HISTORY: Shortness of breath TECHNIQUE: Single frontal view of the chest is obtained. FINDINGS: Bilateral airspace disease, pleural effusion, cardiomegaly, and tracheostomy tube stable. Underlying venous congestion suspected. There is a new left-sided PICC line with the tip near the lev el of the subclavian SVC junction. Right-sided central line has been removed. No pneumothorax IMPRESSION: 1. Diffuse airspace disease and pleural effusion are stable.
[2018-09-30] MEDS: PANTOPRAZOLE 40 MG/10 ML VIAL IVP SCH (08:58)
[2018-09-30] MEDS: SODIUM BICARBONATE TAB 650 MG TAB PO SCH ×3 (08:58→20:56)
[2018-09-30] MEDS: FUROSEMIDE 10 MG/ML 10 ML VIAL IV SCH ×2 (08:58→20:52)
[2018-09-30] MEDS: CHLORHEXIDINE GLUCONATE 15 ML CUP MUCOUS MEM SCH ×2 (08:59→20:51)
[2018-09-30] MEDS: HYDROCORTISONE SUCCINATE 100 MG/2 ML VIAL IV SCH ×2 (08:59→20:51)
[2018-09-30] MEDS: FLUCONAZOLE IN NACL,ISO-OSM 200 MG in SALINE 1 100ML.BAG IVPB SCH (09:00)
[2018-09-30] MEDS: CISATRACURIUM 200 MG in SODIUM CHLORIDE 0.9% 180 ML IV SCH ×2 (09:01→18:22)
[2018-09-30 09:06] LABS: Glucose,Whole Blood 153 mg/dL (75-99)
--- NOTE | 2018-09-30 09:52 | P.PN ---
Subjective Patient is seen in follow-up for acute kidney injury. Renal function continues to worsen. He is oliguric. Potassium is also been running high and has been medically treated multiple times. He is not on any vasopressors. Vital signs are stable. General: The patient appeared well nourished and normally developed. HEENT: Head exam is unremarkable. Neck is without jugular venous distension. LUNGS: Lungs are clear to auscultation and percussion. Breath sounds decreased. HEART: Rate and Rhythm are regular. First and second heart sounds normal. No murmurs, rubs or gallops. ABDOMEN: Bowel sounds decreased. EXTREMITITES: 2+ edema. Scrotal edema noted. Objective - Vital Signs Vital signs: Vital Signs Temp 98 F 09/30/18 04:00 Pulse 84 09/30/18 08:18 Resp 40 H 09/30/18 07:00 BP 91/52 09/30/18 07:00 Pulse Ox 98 09/30/18 07:00 Intake & Output 09/29/18 09/30/18 09/30/18 18:59 06:59 18:59 Intake Total 2635.928 1858.912 183.637 Output Total 2850 1448 5 Balance -214.072 410.912 178.637 Weight 158.7 kg 162.3 kg Intake: IV 1105 880 65 .9 110 10 Fluconazole in NaCl,Iso- 100 Osm 200 mg In Saline 1 100ml.bag @ 100 mls/hr IVPB DAILY [facility] Rx#: [id number] Meropenem 1 gm In Sodium 100 100 Chloride 0.9% 100 ml @ 200 mls/hr IVPB Q12H [facility] Rx#:[id number] Mvi, Adult No.4 with Vit 605 660 55 K 10 ml Trace (Conc-1Ml/ Dose) 1 ml Calcium Gluconate 1 gm Potassium Acetate 20 meq Sodium Acetate 20 meq Magnesium Sulfate gm 1 gm In Amino Acid 5%-D15w 1,000 ml @ 55 mls/hr IV .[id number] [facility] Rx#:[id number] Sodium Chloride 0.9% 1, 300 10 000 ml @ 100 mls/hr IV . Q10H [facility] Rx#:[id number] Intake, IV Titration 680.928 568.912 118.637 Amount Cisatracurium 200 mg In 200 200 Sodium Chloride 0.9% 180 ml @ 1 MCG/KG/MIN 9.03 mls/hr IV .Q22H9M [facility] Rx# :[id number] Diltiazem 125 mg In 125 Sodium Chloride 0.9% 100 ml @ 5 MG/HR 5 mls/hr IV .Q24H [facility] Rx#:[id number] Heparin Sod,Pork in 0.45% 92.315 130.474 NaCl 25,000 unit In 0.45 % NaCl 1 250ml.bag @ 6.1 UNITS/KG/HR 9.998 mls/hr IV .Q24H [facility] Rx#: [id number] Insulin Regular 100 unit 63.613 138.438 28.701 In Sodium Chloride 0.9% 100 ml @ Per Protocol IV .Q0M [facility] Rx#:[id number] Propofol 1,000 mg In 200 100 89.936 Empty Bag 1 bag @ Titrate IV .Q0M [facility] Rx#: [id number] Oral 670 Tube Feeding 180 210 Other 200 Output: Drainage 2400 1350 Abdomen 1400 500 Medial Abdomen 1000 850 Urine 150 98 5 Stool 300 Other: Voiding Method Indwelling Catheter Indwelling Catheter ABP, PAP, CO, CI - Last Documented Arterial Blood Pressure 112/52 - Labs CBC & Chem 7: 09/30/18 04:35 09/30/18 04:35 Labs: Abnormal Lab Results - Last 24 Hours (Table) 09/29/18 09/29/18 09/29/18 Range/Units 10:11 11:47 13:09 WBC (3.8-10.6) k/uL RBC (4.30-5.90) m/uL Hgb (13.0-17.5) gm/dL Hct (39.0-53.0) % MCV (80.0-100.0) fL MCH (25.0-35.0) pg MCHC (31.0-37.0) g/dL RDW (11.5-15.5) % Neutrophils # (Manual) (1.3-7.7) k/uL Lymphocytes # (Manual) (1.0-4.8) k/uL Metamyelocytes # (Man) (0) k/uL Nucleated RBCs (0-0) /100 WBC APTT (22.0-30.0) sec ABG pH 7.24 L (7.35-7.45) ABG pCO2 (35-45) mmHg ABG pO2 (83-108) mmHg ABG HCO3 18 L (21-25) mmol/L ABG O2 Saturation 98.0 H (94-97) % Sodium (137-145) mmol/L Potassium (3.5-5.1) mmol/L Carbon Dioxide (22-30) mmol/L BUN (9-20) mg/dL Creatinine (0.66-1.25) mg/dL Glucose (74-99) mg/dL POC Glucose (mg/dL) 244 H 266 H (75-99) mg/dL Calcium (8.4-10.2) mg/dL Phosphorus (2.5-4.5) mg/dL Magnesium (1.6-2.3) mg/dL 09/29/18 09/29/18 09/29/18 Range/Units 14:04 15:20 16:26 WBC (3.8-10.6) k/uL RBC (4.30-5.90) m/uL Hgb (13.0-17.5) gm/dL Hct (39.0-53.0) % MCV (80.0-100.0) fL MCH (25.0-35.0) pg MCHC (31.0-37.0) g/dL RDW (11.5-15.5) % Neutrophils # (Manual) (1.3-7.7) k/uL Lymphocytes # (Manual) (1.0-4.8) k/uL Metamyelocytes # (Man) (0) k/uL Nucleated RBCs (0-0) /100 WBC APTT (22.0-30.0) sec ABG pH (7.35-7.45) ABG pCO2 (35-45) mmHg ABG pO2 (83-108) mmHg ABG HCO3 (21-25) mmol/L ABG O2 Saturation (94-97) % Sodium (137-145) mmol/L Potassium (3.5-5.1) mmol/L Carbon Dioxide (22-30) mmol/L BUN (9-20) mg/dL Creatinine (0.66-1.25) mg/dL Glucose (74-99) mg/dL POC Glucose (mg/dL) 243 H 223 H 220 H (75-99) mg/dL Calcium (8.4-10.2) mg/dL Phosphorus (2.5-4.5) mg/dL Magnesium (1.6-2.3) mg/dL 09/29/18 09/29/18 09/29/18 Range/Units 17:00 18:17 19:38 WBC (3.8-10.6) k/uL RBC (4.30-5.90) m/uL Hgb (13.0-17.5) gm/dL Hct (39.0-53.0) % MCV (80.0-100.0) fL MCH (25.0-35.0) pg MCHC (31.0-37.0) g/dL RDW (11.5-15.5) % Neutrophils # (Manual) (1.3-7.7) k/uL Lymphocytes # (Manual) (1.0-4.8) k/uL Metamyelocytes # (Man) (0) k/uL Nucleated RBCs (0-0) /100 WBC APTT (22.0-30.0) sec ABG pH (7.35-7.45) ABG pCO2 (35-45) mmHg ABG pO2 (83-108) mmHg ABG HCO3 (21-25) mmol/L ABG O2 Saturation (94-97) % Sodium 135 L (137-145) mmol/L Potassium 5.6 H (3.5-5.1) mmol/L Carbon Dioxide 15 L (22-30) mmol/L BUN 66 H (9-20) mg/dL Creatinine 3.39 H (0.66-1.25) mg/dL Glucose 204 H (74-99) mg/dL POC Glucose (mg/dL) 214 H 241 H (75-99) mg/dL Calcium 7.7 L (8.4-10.2) mg/dL Phosphorus (2.5-4.5) mg/dL Magnesium (1.6-2.3) mg/dL 09/29/18 09/29/18 09/29/18 Range/Units 22:34 23:16 23:53 WBC (3.8-10.6) k/uL RBC (4.30-5.90) m/uL Hgb (13.0-17.5) gm/dL Hct (39.0-53.0) % MCV (80.0-100.0) fL MCH (25.0-35.0) pg MCHC (31.0-37.0) g/dL RDW (11.5-15.5) % Neutrophils # (Manual) (1.3-7.7) k/uL Lymphocytes # (Manual) (1.0-4.8) k/uL Metamyelocytes # (Man) (0) k/uL Nucleated RBCs (0-0) /100 WBC APTT (22.0-30.0) sec ABG pH (7.35-7.45) ABG pCO2 (35-45) mmHg ABG pO2 (83-108) mmHg ABG HCO3 (21-25) mmol/L ABG O2 Saturation (94-97) % Sodium (137-145) mmol/L Potassium (3.5-5.1) mmol/L Carbon Dioxide (22-30) mmol/L BUN (9-20) mg/dL Creatinine (0.66-1.25) mg/dL Glucose (74-99) mg/dL POC Glucose (mg/dL) 197 H 252 H 243 H (75-99) mg/dL Calcium (8.4-10.2) mg/dL Phosphorus (2.5-4.5) mg/dL Magnesium (1.6-2.3) mg/dL 09/30/18 09/30/18 09/30/18 Range/Units 00:01 01:13 02:12 WBC (3.8-10.6) k/uL RBC (4.30-5.90) m/uL Hgb (13.0-17.5) gm/dL Hct (39.0-53.0) % MCV (80.0-100.0) fL MCH (25.0-35.0) pg MCHC (31.0-37.0) g/dL RDW (11.5-15.5) % Neutrophils # (Manual) (1.3-7.7) k/uL Lymphocytes # (Manual) (1.0-4.8) k/uL Metamyelocytes # (Man) (0) k/uL Nucleated RBCs (0-0) /100 WBC APTT (22.0-30.0) sec ABG pH (7.35-7.45) ABG pCO2 (35-45) mmHg ABG pO2 (83-108) mmHg ABG HCO3 (21-25) mmol/L ABG O2 Saturation (94-97) % Sodium (137-145) mmol/L Potassium 5.6 H (3.5-5.1) mmol/L Carbon Dioxide (22-30) mmol/L BUN (9-20) mg/dL Creatinine (0.66-1.25) mg/dL Glucose (74-99) mg/dL POC Glucose (mg/dL) 188 H 525 H (75-99) mg/dL Calcium (8.4-10.2) mg/dL Phosphorus (2.5-4.5) mg/dL Magnesium (1.6-2.3) mg/dL 09/30/18 09/30/18 09/30/18 Range/Units 02:14 02:16 03:20 WBC (3.8-10.6) k/uL RBC (4.30-5.90) m/uL Hgb (13.0-17.5) gm/dL Hct (39.0-53.0) % MCV (80.0-100.0) fL MCH (25.0-35.0) pg MCHC (31.0-37.0) g/dL RDW (11.5-15.5) % Neutrophils # (Manual) (1.3-7.7) k/uL Lymphocytes # (Manual) (1.0-4.8) k/uL Metamyelocytes # (Man) (0) k/uL Nucleated RBCs (0-0) /100 WBC APTT (22.0-30.0) sec ABG pH (7.35-7.45) ABG pCO2 (35-45) mmHg ABG pO2 (83-108) mmHg ABG HCO3 (21-25) mmol/L ABG O2 Saturation (94-97) % Sodium (137-145) mmol/L Potassium (3.5-5.1) mmol/L Carbon Dioxide (22-30) mmol/L BUN (9-20) mg/dL Creatinine (0.66-1.25) mg/dL Glucose (74-99) mg/dL POC Glucose (mg/dL) 207 H 209 H 186 H (75-99) mg/dL Calcium (8.4-10.2) mg/dL Phosphorus (2.5-4.5) mg/dL Magnesium (1.6-2.3) mg/dL 09/30/18 09/30/18 09/30/18 Range/Units 04:06 04:35 04:35 WBC 11.7 H (3.8-10.6) k/uL RBC 4.01 L (4.30-5.90) m/uL Hgb 7.3 L (13.0-17.5) gm/dL Hct 28.5 L (39.0-53.0) % MCV 71.0 L (80.0-100.0) fL MCH 18.1 L (25.0-35.0) pg MCHC 25.5 L (31.0-37.0) g/dL RDW 22.9 H (11.5-15.5) % Neutrophils # (Manual) 9.90 H (1.3-7.7) k/uL Lymphocytes # (Manual) 0.70 L (1.0-4.8) k/uL Metamyelocytes # (Man) 0.12 H (0) k/uL Nucleated RBCs 9 H (0-0) /100 WBC APTT (22.0-30.0) sec ABG pH (7.35-7.45) ABG pCO2 (35-45) mmHg ABG pO2 (83-108) mmHg ABG HCO3 (21-25) mmol/L ABG O2 Saturation (94-97) % Sodium (137-145) mmol/L Potassium 5.3 H (3.5-5.1) mmol/L Carbon Dioxide 19 L (22-30) mmol/L BUN 73 H (9-20) mg/dL Creatinine 3.68 H (0.66-1.25) mg/dL Glucose 173 H (74-99) mg/dL POC Glucose (mg/dL) 188 H (75-99) mg/dL Calcium 7.8 L (8.4-10.2) mg/dL Phosphorus 8.7 H (2.5-4.5) mg/dL Magnesium 2.4 H (1.6-2.3) mg/dL 09/30/18 09/30/18 09/30/18 Range/Units 04:56 05:02 06:14 WBC (3.8-10.6) k/uL RBC (4.30-5.90) m/uL Hgb (13.0-17.5) gm/dL Hct (39.0-53.0) % MCV (80.0-100.0) fL MCH (25.0-35.0) pg MCHC (31.0-37.0) g/dL RDW (11.5-15.5) % Neutrophils # (Manual) (1.3-7.7) k/uL Lymphocytes # (Manual) (1.0-4.8) k/uL Metamyelocytes # (Man) (0) k/uL Nucleated RBCs (0-0) /100 WBC APTT (22.0-30.0) sec ABG pH 7.19 L* (7.35-7.45) ABG pCO2 57 H (35-45) mmHg ABG pO2 56 L* (83-108) mmHg ABG HCO3 (21-25) mmol/L ABG O2 Saturation 91.9 L (94-97) % Sodium (137-145) mmol/L Potassium (3.5-5.1) mmol/L Carbon Dioxide (22-30) mmol/L BUN (9-20) mg/dL Creatinine (0.66-1.25) mg/dL Glucose (74-99) mg/dL POC Glucose (mg/dL) 180 H 195 H (75-99) mg/dL Calcium (8.4-10.2) mg/dL Phosphorus (2.5-4.5) mg/dL Magnesium (1.6-2.3) mg/dL 09/30/18 09/30/18 09/30/18 Range/Units 06:30 07:11 07:59 WBC (3.8-10.6) k/uL RBC (4.30-5.90) m/uL Hgb (13.0-17.5) gm/dL Hct (39.0-53.0) % MCV (80.0-100.0) fL MCH (25.0-35.0) pg MCHC (31.0-37.0) g/dL RDW (11.5-15.5) % Neutrophils # (Manual) (1.3-7.7) k/uL Lymphocytes # (Manual) (1.0-4.8) k/uL Metamyelocytes # (Man) (0) k/uL Nucleated RBCs (0-0) /100 WBC APTT 66.6 H (22.0-30.0) sec ABG pH 7.23 L (7.35-7.45) ABG pCO2 53 H (35-45) mmHg ABG pO2 124 H (83-108) mmHg ABG HCO3 (21-25) mmol/L ABG O2 Saturation 98.9 H (94-97) % Sodium (137-145) mmol/L Potassium (3.5-5.1) mmol/L Carbon Dioxide (22-30) mmol/L BUN (9-20) mg/dL Creatinine (0.66-1.25) mg/dL Glucose (74-99) mg/dL POC Glucose (mg/dL) 177 H (75-99) mg/dL Calcium (8.4-10.2) mg/dL Phosphorus (2.5-4.5) mg/dL Magnesium (1.6-2.3) mg/dL 09/30/18 09/30/18 Range/Units 08:14 09:03 WBC (3.8-10.6) k/uL RBC (4.30-5.90) m/uL Hgb (13.0-17.5) gm/dL Hct (39.0-53.0) % MCV (80.0-100.0) fL MCH (25.0-35.0) pg MCHC (31.0-37.0) g/dL RDW (11.5-15.5) % Neutrophils # (Manual) (1.3-7.7) k/uL Lymphocytes # (Manual) (1.0-4.8) k/uL Metamyelocytes # (Man) (0) k/uL Nucleated RBCs (0-0) /100 WBC APTT (22.0-30.0) sec ABG pH (7.35-7.45) ABG pCO2 (35-45) mmHg ABG pO2 (83-108) mmHg ABG HCO3 (21-25) mmol/L ABG O2 Saturation (94-97) % Sodium (137-145) mmol/L Potassium (3.5-5.1) mmol/L Carbon Dioxide (22-30) mmol/L BUN (9-20) mg/dL Creatinine (0.66-1.25) mg/dL Glucose (74-99) mg/dL POC Glucose (mg/dL) 164 H 153 H (75-99) mg/dL Calcium (8.4-10.2) mg/dL Phosphorus (2.5-4.5) mg/dL Magnesium (1.6-2.3) mg/dL Microbiology - Last 24 Hours (Table) 09/24/18 00:40 Blood Culture - Final Blood No Growth after 144 hours 09/29/18 15:45 Catheter Tip Culture - Preliminary Catheter Tip 09/27/18 10:10 Gram Stain - Preliminary Abdomen Wound Culture - Preliminary Escherichia coli Mucor species 09/27/18 10:10 Anaerobic Culture - Preliminary Abdomen 09/27/18 10:36 Blood Culture - Preliminary Blood No Growth after 48 hours Assessment and Plan Plan: Assessment: 1. Oliguric acute kidney injury secondary to ATN secondary to septic shock. Baseline creatinine is 1. It is 3.68 today. 2. Pneumoperitoneum secondary to perforated gastric ulcer status post exploratory laparotomy with lysis of adhesions and repair of gastric ulcer on September 16. 3. A. fib with RVR maintained on Cardizem and heparin drip. 4. Volume overload. 5. Septic shock secondary to peritonitis from perforated peptic ulcer maintained on IV antibiotics. 6. Hyperphosphatemia secondary to acute kidney injury. 7. Metabolic acidosis secondary to acute kidney injury and IV fluids. 8. Hyperkalemia secondary to acute kidney injury and metabolic acidosis. Plan: Maintain TPN and tube feeding. Maintain Lasix 80 mg IV twice daily. Maintain oral sodium bicarbonate. Maintain PhosLo 3 times daily. I discussed with the family the overall poor prognosis auscultation. However at this time they stressed they want to be aggressive with this treatment. I also discussed with them that he may not be able to tolerate renal replacement therapy and develop hemodynamic instability. They understand and wish to give it a try at this time. Consult vascular surgery for dialysis catheter placement. First treatment of hemodialysis today.
[2018-09-30 10:55] LABS: Glucose,Whole Blood 171 mg/dL (75-99)
[2018-09-30] MEDS: DILTIAZEM 125 MG in SODIUM CHLORIDE 0.9% 100 ML IV SCH (10:59)
[2018-09-30 11:57] LABS: Glucose,Whole Blood 165 mg/dL (75-99)
[2018-09-30 12:39] LABS: Hemoglobin A1C 5.3 % (4.0-6.0)
--- NOTE | 2018-09-30 13:10 | P.OP ---
Description of Procedure: SURGEON: Avani Foster DO [employer]: None PREOPERATIVE DIAGNOSIS: Worsening kidney injury, hyperkalemia, multiorgan system failure, volume overload, atrial fibrillation, perforated gastric ulcer status post laparotomy POSTOPERATIVE DIAGNOSIS: Same OPERATION: Placement of dialysis catheter, right femoral. DESCRIPTION OF PROCEDURE: An ultrasound was utilized and the right common femoral artery was identified. The right groin was prepped and draped with ChloraPrep. Lidocaine was infiltrated. A multipurpose needle was utilized to access the right femoral vein with ultrasound guidance. Guidewire was passed. Dilator advanced on top of the guidewire. Right femoral catheter was placed, which was secured with 3-0 silk. Dressing applied. The patient tolerated the procedure well.
[2018-09-30 13:25] LABS: Glucose,Whole Blood 181 mg/dL (75-99)
--- NOTE | 2018-09-30 13:28 | P.PN ---
Subjective Progress Note Date: 09/30/18 CHIEF COMPLAINT: abdominal pain HISTORY OF PRESENT ILLNESS: Patient s/p exploratory laparotomy, lysis of adhesions, decompression of colon and small bowel, transverse colectomy with takedown of splenic flexure, and repair of gastric ulcer with Dr. De Leon secondary to pneumoperitoneum, perforated gastric ulcer, ischemic colon at splenic flexure, and bowel obstruction. POD #14. Also, s/p trach 09/26/18. Unable to have PEG tube inserted at that time. The patient remains intubated on mechanical ventilation in the intensive care unit. Family at bedside. Patient remains sedated. Oxygen requirements have increased. Fio2 currently at 90% and PEEP of 10. Patient continues to decline. Worsening renal failure with plans to start hemodialysis. Tube feeding infusing and tolerating well. PHYSICAL EXAM: VITAL SIGNS: Reviewed GENERAL: Patient sedated on mechanical ventilation HEENT: Trach noted. NG tube with tube feeding infusing. No sclera icterus. Extraocular movements grossly intact. Moist buccal mucosa. Head is atraumatic, normocephalic. No nasal drainage. ABDOMEN: Abdomen nondistended, but obese. Wound vac to abdomen. CHAVEZ drain with serous drainage-connected to suction. Left-sided colostomy with stool present. Ostomy pink/red. NEUROLOGIC: Patient sedated on mechanical ventilation ASSESSMENT: 1. Abdominal pain 2. Pneumoperitoneum 3. S/P exploratory laparotomy, lysis of adhesions, decompression of colon and small bowel, transverse colectomy with takedown of splenic flexure, and repair of gastric ulcer secondary to pneumoperitoneum, perforated gastric ulcer, ischemic colon at splenic flexure, and bowel obstruction 4. Septic shock, present on admission secondary to above 5. History of atrial fibrillation, on long-term anticoagulation with Eliquis 6. History of bowel obstruction 7. History of laparoscopic Bruce fundoplication 8. History of hiatal hernia repair with mesh PLAN: 1. Continue ventilator management per Dr. Love. 2. Continue tube feedings. Advance as tolerated per dietary recommendations. Finish infusing current TPN bag and then discontinue TPN. 3. Continue wound vac 4. Continue antibiotics 5. Dr. De Leon spoke with multiple family members at the bedside regarding poor prognosis. He remains a full code at this time. Nurse practitioner note has been reviewed by physician. Signing provider agrees with the documented findings, assessment, and plan of care. Objective - Vital Signs Vital signs: Vital Signs Temp 97.6 F 09/30/18 08:00 Pulse 112 H 09/30/18 11:15 Resp 40 H 09/30/18 11:15 BP 88/52 09/30/18 11:15 Pulse Ox 86 L 09/30/18 11:15 Intake & Output 09/29/18 09/30/18 09/30/18 18:59 06:59 18:59 Intake Total 2635.928 0870.309 4830.604 Output Total 2850 1448 40 Balance -214.072 248.304 8302.604 Weight 158.7 kg 162.3 kg Intake: IV 1105 880 425 0.9 Normal saline @ 10ml/ 110 50 hr Fluconazole in NaCl,Iso- 100 100 Osm 200 mg In Saline 1 100ml.bag @ 100 mls/hr IVPB DAILY [facility] Rx#: [id number] Meropenem 1 gm In Sodium 100 100 Chloride 0.9% 100 ml @ 200 mls/hr IVPB Q12H [facility] Rx#:[id number] Mvi, Adult No.4 with Vit 605 660 275 K 10 ml Trace (Conc-1Ml/ Dose) 1 ml Calcium Gluconate 1 gm Potassium Acetate 20 meq Sodium Acetate 20 meq Magnesium Sulfate gm 1 gm In Amino Acid 5%-D15w 1,000 ml @ 55 mls/hr IV .[id number] [facility] Rx#:[id number] Sodium Chloride 0.9% 1, 300 10 000 ml @ 100 mls/hr IV . Q10H [facility] Rx#:[id number] Intake, IV Titration 680.928 693.912 475.604 Amount Cisatracurium 200 mg In 200 200 Sodium Chloride 0.9% 180 ml @ 1 MCG/KG/MIN 9.03 mls/hr IV .Q22H9M [facility] Rx# :[id number] Diltiazem 125 mg In 125 125 Sodium Chloride 0.9% 100 ml @ 5 MG/HR 5 mls/hr IV .Q24H [facility] Rx#:[id number] Heparin Sod,Pork in 0.45% 92.315 130.474 250 NaCl 25,000 unit In 0.45 % NaCl 1 250ml.bag @ 6.1 UNITS/KG/HR 9.998 mls/hr IV .Q24H [facility] Rx#: [id number] Insulin Regular 100 unit 63.613 138.438 44.297 In Sodium Chloride 0.9% 100 ml @ Per Protocol IV .Q0M [facility] Rx#:[id number] Norepinephrine 8 mg In 1.435 Sodium Chloride 0.9% 250 ml @ 0.05 MCG/KG/MIN 14. 35 mls/hr IV .[id number] [facility] Rx#:[id number] Propofol 1,000 mg In 200 100 179.872 Empty Bag 1 bag @ Titrate IV .Q0M [facility] Rx#: [id number] Oral 670 Tube Feeding 180 210 120 Other 200 30 Output: Drainage 2400 1350 Abdomen 1400 500 Medial Abdomen 1000 850 Urine 150 98 40 Stool 300 Other: Voiding Method Indwelling Catheter Indwelling Catheter ABP, PAP, CO, CI - Last Documented Arterial Blood Pressure 112/52 - Labs CBC & Chem 7: 09/30/18 04:35 09/30/18 04:35 Labs: Abnormal Lab Results - Last 24 Hours (Table) 09/29/18 09/29/18 09/29/18 Range/Units 14:04 15:20 16:26 WBC (3.8-10.6) k/uL RBC (4.30-5.90) m/uL Hgb (13.0-17.5) gm/dL Hct (39.0-53.0) % MCV (80.0-100.0) fL MCH (25.0-35.0) pg MCHC (31.0-37.0) g/dL RDW (11.5-15.5) % Neutrophils # (Manual) (1.3-7.7) k/uL Lymphocytes # (Manual) (1.0-4.8) k/uL Metamyelocytes # (Man) (0) k/uL Nucleated RBCs (0-0) /100 WBC APTT (22.0-30.0) sec ABG pH (7.35-7.45) ABG pCO2 (35-45) mmHg ABG pO2 (83-108) mmHg ABG O2 Saturation (94-97) % Sodium (137-145) mmol/L Potassium (3.5-5.1) mmol/L Carbon Dioxide (22-30) mmol/L BUN (9-20) mg/dL Creatinine (0.66-1.25) mg/dL Glucose (74-99) mg/dL POC Glucose (mg/dL) 243 H 223 H 220 H (75-99) mg/dL Calcium (8.4-10.2) mg/dL Phosphorus (2.5-4.5) mg/dL Magnesium (1.6-2.3) mg/dL 09/29/18 09/29/18 09/29/18 Range/Units 17:00 18:17 19:38 WBC (3.8-10.6) k/uL RBC (4.30-5.90) m/uL Hgb (13.0-17.5) gm/dL Hct (39.0-53.0) % MCV (80.0-100.0) fL MCH (25.0-35.0) pg MCHC (31.0-37.0) g/dL RDW (11.5-15.5) % Neutrophils # (Manual) (1.3-7.7) k/uL Lymphocytes # (Manual) (1.0-4.8) k/uL Metamyelocytes # (Man) (0) k/uL Nucleated RBCs (0-0) /100 WBC APTT (22.0-30.0) sec ABG pH (7.35-7.45) ABG pCO2 (35-45) mmHg ABG pO2 (83-108) mmHg ABG O2 Saturation (94-97) % Sodium 135 L (137-145) mmol/L Potassium 5.6 H (3.5-5.1) mmol/L Carbon Dioxide 15 L (22-30) mmol/L BUN 66 H (9-20) mg/dL Creatinine 3.39 H (0.66-1.25) mg/dL Glucose 204 H (74-99) mg/dL POC Glucose (mg/dL) 214 H 241 H (75-99) mg/dL Calcium 7.7 L (8.4-10.2) mg/dL Phosphorus (2.5-4.5) mg/dL Magnesium (1.6-2.3) mg/dL 09/29/18 09/29/18 09/29/18 Range/Units 22:34 23:16 23:53 WBC (3.8-10.6) k/uL RBC (4.30-5.90) m/uL Hgb (13.0-17.5) gm/dL Hct (39.0-53.0) % MCV (80.0-100.0) fL MCH (25.0-35.0) pg MCHC (31.0-37.0) g/dL RDW (11.5-15.5) % Neutrophils # (Manual) (1.3-7.7) k/uL Lymphocytes # (Manual) (1.0-4.8) k/uL Metamyelocytes # (Man) (0) k/uL Nucleated RBCs (0-0) /100 WBC APTT (22.0-30.0) sec ABG pH (7.35-7.45) ABG pCO2 (35-45) mmHg ABG pO2 (83-108) mmHg ABG O2 Saturation (94-97) % Sodium (137-145) mmol/L Potassium (3.5-5.1) mmol/L Carbon Dioxide (22-30) mmol/L BUN (9-20) mg/dL Creatinine (0.66-1.25) mg/dL Glucose (74-99) mg/dL POC Glucose (mg/dL) 197 H 252 H 243 H (75-99) mg/dL Calcium (8.4-10.2) mg/dL Phosphorus (2.5-4.5) mg/dL Magnesium (1.6-2.3) mg/dL 09/30/18 09/30/18 09/30/18 Range/Units 00:01 01:13 02:12 WBC (3.8-10.6) k/uL RBC (4.30-5.90) m/uL Hgb (13.0-17.5) gm/dL Hct (39.0-53.0) % MCV (80.0-100.0) fL MCH (25.0-35.0) pg MCHC (31.0-37.0) g/dL RDW (11.5-15.5) % Neutrophils # (Manual) (1.3-7.7) k/uL Lymphocytes # (Manual) (1.0-4.8) k/uL Metamyelocytes # (Man) (0) k/uL Nucleated RBCs (0-0) /100 WBC APTT (22.0-30.0) sec ABG pH (7.35-7.45) ABG pCO2 (35-45) mmHg ABG pO2 (83-108) mmHg ABG O2 Saturation (94-97) % Sodium (137-145) mmol/L Potassium 5.6 H (3.5-5.1) mmol/L Carbon Dioxide (22-30) mmol/L BUN (9-20) mg/dL Creatinine (0.66-1.25) mg/dL Glucose (74-99) mg/dL POC Glucose (mg/dL) 188 H 525 H (75-99) mg/dL Calcium (8.4-10.2) mg/dL Phosphorus (2.5-4.5) mg/dL Magnesium (1.6-2.3) mg/dL 09/30/18 09/30/18 09/30/18 Range/Units 02:14 02:16 03:20 WBC (3.8-10.6) k/uL RBC (4.30-5.90) m/uL Hgb (13.0-17.5) gm/dL Hct (39.0-53.0) % MCV (80.0-100.0) fL MCH (25.0-35.0) pg MCHC (31.0-37.0) g/dL RDW (11.5-15.5) % Neutrophils # (Manual) (1.3-7.7) k/uL Lymphocytes # (Manual) (1.0-4.8) k/uL Metamyelocytes # (Man) (0) k/uL Nucleated RBCs (0-0) /100 WBC APTT (22.0-30.0) sec ABG pH (7.35-7.45) ABG pCO2 (35-45) mmHg ABG pO2 (83-108) mmHg ABG O2 Saturation (94-97) % Sodium (137-145) mmol/L Potassium (3.5-5.1) mmol/L Carbon Dioxide (22-30) mmol/L BUN (9-20) mg/dL Creatinine (0.66-1.25) mg/dL Glucose (74-99) mg/dL POC Glucose (mg/dL) 207 H 209 H 186 H (75-99) mg/dL Calcium (8.4-10.2) mg/dL Phosphorus (2.5-4.5) mg/dL Magnesium (1.6-2.3) mg/dL 09/30/18 09/30/18 09/30/18 Range/Units 04:06 04:35 04:35 WBC 11.7 H (3.8-10.6) k/uL RBC 4.01 L (4.30-5.90) m/uL Hgb 7.3 L (13.0-17.5) gm/dL Hct 28.5 L (39.0-53.0) % MCV 71.0 L (80.0-100.0) fL MCH 18.1 L (25.0-35.0) pg MCHC 25.5 L (31.0-37.0) g/dL RDW 22.9 H (11.5-15.5) % Neutrophils # (Manual) 9.90 H (1.3-7.7) k/uL Lymphocytes # (Manual) 0.70 L (1.0-4.8) k/uL Metamyelocytes # (Man) 0.12 H (0) k/uL Nucleated RBCs 9 H (0-0) /100 WBC APTT (22.0-30.0) sec ABG pH (7.35-7.45) ABG pCO2 (35-45) mmHg ABG pO2 (83-108) mmHg ABG O2 Saturation (94-97) % Sodium (137-145) mmol/L Potassium 5.3 H (3.5-5.1) mmol/L Carbon Dioxide 19 L (22-30) mmol/L BUN 73 H (9-20) mg/dL Creatinine 3.68 H (0.66-1.25) mg/dL Glucose 173 H (74-99) mg/dL POC Glucose (mg/dL) 188 H (75-99) mg/dL Calcium 7.8 L (8.4-10.2) mg/dL Phosphorus 8.7 H (2.5-4.5) mg/dL Magnesium 2.4 H (1.6-2.3) mg/dL 09/30/18 09/30/18 09/30/18 Range/Units 04:56 05:02 06:14 WBC (3.8-10.6) k/uL RBC (4.30-5.90) m/uL Hgb (13.0-17.5) gm/dL Hct (39.0-53.0) % MCV (80.0-100.0) fL MCH (25.0-35.0) pg MCHC (31.0-37.0) g/dL RDW (11.5-15.5) % Neutrophils # (Manual) (1.3-7.7) k/uL Lymphocytes # (Manual) (1.0-4.8) k/uL Metamyelocytes # (Man) (0) k/uL Nucleated RBCs (0-0) /100 WBC APTT (22.0-30.0) sec ABG pH 7.19 L* (7.35-7.45) ABG pCO2 57 H (35-45) mmHg ABG pO2 56 L* (83-108) mmHg ABG O2 Saturation 91.9 L (94-97) % Sodium (137-145) mmol/L Potassium (3.5-5.1) mmol/L Carbon Dioxide (22-30) mmol/L BUN (9-20) mg/dL Creatinine (0.66-1.25) mg/dL Glucose (74-99) mg/dL POC Glucose (mg/dL) 180 H 195 H (75-99) mg/dL Calcium (8.4-10.2) mg/dL Phosphorus (2.5-4.5) mg/dL Magnesium (1.6-2.3) mg/dL 09/30/18 09/30/18 09/30/18 Range/Units 06:30 07:11 07:59 WBC (3.8-10.6) k/uL RBC (4.30-5.90) m/uL Hgb (13.0-17.5) gm/dL Hct (39.0-53.0) % MCV (80.0-100.0) fL MCH (25.0-35.0) pg MCHC (31.0-37.0) g/dL RDW (11.5-15.5) % Neutrophils # (Manual) (1.3-7.7) k/uL Lymphocytes # (Manual) (1.0-4.8) k/uL Metamyelocytes # (Man) (0) k/uL Nucleated RBCs (0-0) /100 WBC APTT 66.6 H (22.0-30.0) sec ABG pH 7.23 L (7.35-7.45) ABG pCO2 53 H (35-45) mmHg ABG pO2 124 H (83-108) mmHg ABG O2 Saturation 98.9 H (94-97) % Sodium (137-145) mmol/L Potassium (3.5-5.1) mmol/L Carbon Dioxide (22-30) mmol/L BUN (9-20) mg/dL Creatinine (0.66-1.25) mg/dL Glucose (74-99) mg/dL POC Glucose (mg/dL) 177 H (75-99) mg/dL Calcium (8.4-10.2) mg/dL Phosphorus (2.5-4.5) mg/dL Magnesium (1.6-2.3) mg/dL 09/30/18 09/30/18 09/30/18 Range/Units 08:14 09:03 10:54 WBC (3.8-10.6) k/uL RBC (4.30-5.90) m/uL Hgb (13.0-17.5) gm/dL Hct (39.0-53.0) % MCV (80.0-100.0) fL MCH (25.0-35.0) pg MCHC (31.0-37.0) g/dL RDW (11.5-15.5) % Neutrophils # (Manual) (1.3-7.7) k/uL Lymphocytes # (Manual) (1.0-4.8) k/uL Metamyelocytes # (Man) (0) k/uL Nucleated RBCs (0-0) /100 WBC APTT (22.0-30.0) sec ABG pH (7.35-7.45) ABG pCO2 (35-45) mmHg ABG pO2 (83-108) mmHg ABG O2 Saturation (94-97) % Sodium (137-145) mmol/L Potassium (3.5-5.1) mmol/L Carbon Dioxide (22-30) mmol/L BUN (9-20) mg/dL Creatinine (0.66-1.25) mg/dL Glucose (74-99) mg/dL POC Glucose (mg/dL) 164 H 153 H 171 H (75-99) mg/dL Calcium (8.4-10.2) mg/dL Phosphorus (2.5-4.5) mg/dL Magnesium (1.6-2.3) mg/dL 09/30/18 Range/Units 11:56 WBC (3.8-10.6) k/uL RBC (4.30-5.90) m/uL Hgb (13.0-17.5) gm/dL Hct (39.0-53.0) % MCV (80.0-100.0) fL MCH (25.0-35.0) pg MCHC (31.0-37.0) g/dL RDW (11.5-15.5) % Neutrophils # (Manual) (1.3-7.7) k/uL Lymphocytes # (Manual) (1.0-4.8) k/uL Metamyelocytes # (Man) (0) k/uL Nucleated RBCs (0-0) /100 WBC APTT (22.0-30.0) sec ABG pH (7.35-7.45) ABG pCO2 (35-45) mmHg ABG pO2 (83-108) mmHg ABG O2 Saturation (94-97) % Sodium (137-145) mmol/L Potassium (3.5-5.1) mmol/L Carbon Dioxide (22-30) mmol/L BUN (9-20) mg/dL Creatinine (0.66-1.25) mg/dL Glucose (74-99) mg/dL POC Glucose (mg/dL) 165 H (75-99) mg/dL Calcium (8.4-10.2) mg/dL Phosphorus (2.5-4.5) mg/dL Magnesium (1.6-2.3) mg/dL Microbiology - Last 24 Hours (Table) 09/27/18 10:36 Blood Culture - Preliminary Blood No Growth after 72 hours 09/27/18 10:10 Gram Stain - Final Abdomen Wound Culture - Final Escherichia coli Mucor species 09/24/18 00:40 Blood Culture - Final Blood No Growth after 144 hours 09/29/18 15:45 Catheter Tip Culture - Preliminary Catheter Tip 09/27/18 10:10 Anaerobic Culture - Preliminary Abdomen Assessment and Plan (1) Acute abdomen Current Visit: Yes Status: Acute Code(s): R10.0 - ACUTE ABDOMEN SNOMED Code(s): 1836292 (2) A-fib Current Visit: No Status: Acute Priority: High Code(s): I48.91 - UNSPECIFIED ATRIAL FIBRILLATION SNOMED Code(s): 50763853 (3) Abdominal pain Current Visit: No Status: Acute Code(s): R10.9 - UNSPECIFIED ABDOMINAL PAIN SNOMED Code(s): 35788752 (4) S/P exploratory laparotomy Current Visit: No Status: Acute Code(s): Z98.89 - OTHER SPECIFIED POSTPROCEDURAL STATES * DO NOT USE * SNOMED Code(s): 263296817
[2018-09-30] MEDS ORDERED: LIDOCAINE 1% INJ 10MG/ML (20 ML MDV) ONE (13:59)
--- NOTE | 2018-09-30 14:46 | US ---
EXAMINATION TYPE: US venous doppler duplex LE BI DATE OF EXAM: 09/30/2018 2:28 PM COMPARISON: NONE CLINICAL HISTORY: r/o DVT. edema SIDE PERFORMED: bilateral TECHNIQUE: The lower extremity deep venous system is examined utilizing real time linear array sonog ramonita with graded compression, doppler sonography and color-flow sonography. VESSELS IMAGED: External Iliac Vein (EIV) Common Femoral Vein Deep Femoral Vein Greater Saphenous Vein * Femoral Vein Popliteal Vein Small Saphenous Vein * Proximal Calf Veins (* superficial vessels) Extreme technical limitations - ICU patient with large body habitus (350+ pounds) and large amou nt of edema Right Leg: limited evaluation, unable to visualize EIV through femoral vein due to body habitus and Foster catheter. Visualized portions show no evidence of DVT at this time Left Leg: Unable to visualize EIV and femoral vein mid and distal due to large body habitus and lory a. No evidence of DVT as visualized IMPRESSION: 1. Markedly limited exam with nondiagnostic assessment of the external iliac vein through the femoral veins as discussed above. Limited assessment of the popliteal vein demonstrates no diagnostic eviden ce of DVT bilaterally.
[2018-09-30 14:54] LABS: Glucose,Whole Blood 179 mg/dL (75-99)
--- NOTE | 2018-09-30 15:46 | P.PN ---
Subjective Progress Note Date: 09/30/18 This is a 72-year-old male patient of Dr. Cevallos with past history of chronic hypoxic respiratory failure on home O2 obstructive sleep apnea on CPAP, paroxysmal atrial fibrillation, chronic diastolic heart failure, severe COPD, morbid obesity with BMI of 47, hypertension hypertensive cardiovascular disease, mild intermittent asthma, hyperlipidemia, gastroesophageal reflux disease, diabetes mellitus type 2, cellulitis of the abdominal wall. Patient was recently hospitalized and discharged home on September 12 and treated for acute diastolic heart failure, atrial flutter/atrial fibrillation with rapid ventricular response status post MIKE which found a small atrial appendage thrombus. The patient was stabilized and discharged home in stable condition and had been started on amiodarone, eliquis, Aldactone, prednisone and Augmentin. Patient presented to [facility] emergency center for evaluation. He was afebrile, heart rate 130s, blood pressure 119/79, pulse ox 95%. White count was 5.9, hemoglobin 10.6, platelet count 4-72. Sodium 133, potassium 5.4, chloride 96, CO2 20, BUN 36 and creatinine 1.6, blood sugar 178. CAT scan of the abdomen and pelvis revealed pneumoperitoneum. Bowel distention. Bowel ischemia not excluded. No clear obstruction. Findings may be due to ileus. Patient was provided IV fluids, pain medication and Zosyn patient was seen by Dr. De Leon in the emergency center and taken to the OR found to have a perforated gastric ulcer, ischemic colon at the site of splenic flexure of the bowel obstruction. Patient underwent exploratory laparotomy, lysis of adhesions, decompression of the colon and small bowel, transverse colectomy and takedown of splenic flexure and repair of a gastric ulcer. Patient was then transferred to the intensive care unit and followed by Dr. Red. He is status post greater than 8 L of IV fluid and on norepinephrine and subsequent started on vasopressin. Urine output has been marginal patient remains intubated and on mechanical ventilation with tidal volume 550, FiO2 of 50% and PEEP of 5. The patient is on sedation. 09/18: Patient remains in intensive care unit intubated and on mechanical vent ilation with tidal volume 550, FiO2 50, PEEP 5. NG tube with black drainage. He is on 22 mics of levo fed and 0.03 vasopressin. Patient was started on amiodarone due to continued A. fib with RVR. Heart rate is in the 140s, blood pressure systolic 99. A.m. lab work white count 9.6, hemoglobin 8.5, platelet count 368. Sodium 136, potassium 4.9, chloride 108, CO2 18, BUN 39 creatinine 1.81. Blood sugars are running between 141 and 161. Urine culture is in progress and blood culture is no growth at [address] Benedict is recommended continuing Zosyn and Diflucan. Son is at bedside and all questions have been answered. 09/19: Patient remains in the intensive care unit intubated and on mechanical ventilation with tidal volume 550, FiO2 40 and PEEP of 5. Norepinephrine is now down to 5 mics and minimal on vasopressin. Urine output has been more than adequate. He has been afebrile. He is continued on sedation with propofol. A sedation holiday was attempted today but patient became tachypneic. Patient is back on sedation with plan for tomorrow for sedation holiday tomorrow. Patient has had output from colostomy and passing gas and colostomy. Decreased output from NG tube and from CHAVEZ drain. WBC 8.6, hemoglobin 7.8. He has been afebrile, heart rate 99, blood pressure 90/63. TPN has been started. Amiodarone drip to be discontinued. 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 09/20 Patient remains in ICU, currently nothing by mouth, CHAVEZ drain has drained ov er 2 L in 24 hours, patient has been off pressors, urine output is normal, patient is still on TPN, patient still has abdominal discomfort, otherwise no chest pain no shortness of breath, no palpitations. Hemoglobin currently at 7.4 from an admitting hemoglobin of 9.4, iron studies to be done, agent has initial myelocytes on admission, creatinine 1.02 from 1.2, surgical incision is dry, there is stool output in the colostomy bag, patient remains on mechanical ventilator, unchanged and settings. Followed closely by pulmonary medicine, Cardizem drip was initiated for atrial fibrillation. Attempt to be made with weaning ventilatory support in a.m. : Postop day #5, he was given sedation holiday today, and was able to follow verbal commands, unable to wean today secondary to parameters from Dr. Red, patient went back to assist control mode of ventilation, Lasix was given 401 dose for CHF, pulmonary edema, blood pressure remains stable, negative balance of 1.3 L, urine output is good, has decreased output on the CHAVEZ drain, small amount of mucus stools today, still diminished bowel sounds currently nothing by mouth, general surgery following closely, 09/22: Patient remains intubated and on mechanical ventilation with tidal volume 550, FiO2 40, PEEP 5. Patient failed weaning attempt this morning. Patient is off vasopressors. He has been afebrile, heart rate 108, blood pressure 116/57. Repeat lab work reveals white count of 8.5, hemoglobin 7.8, platelet count 372. Sodium is 150, potassium 3.9, chloride 122, CO2 20, BUN 29 creatinine 0.92. Blood sugars run between 160 [birth year]1976. Phosphorus 3.4. Magnesium 2.4. Repeat chest x-ray this morning reveals persistent bilateral infiltrate and pleural effusion correlate for heart failure. Patient is maintained on Cardizem drip started over the weekend by hand booked folder and stitcher. The patient is also continued on TPN. No plan for tube feedings until extubated. Patient does have a liquid stool in ostomy. Urine output has been adequate. CHVAEZ drain remains in place. Consult for cardiology added for atrial fibrillation. 09/23: Repeat chest x-ray shows diffuse pleuroparenchymal changes are stable correlate for diffuse pneumonia versus heart failure. Chest ultrasound shows small left pleural effusion. Cardiology is following for atrial fibrillation. Patient is maintained on IV Cardizem and heparin. Blood pressure is currently controlled. Heart rate is also controlled. The temperature max 100.7, heart rate 98, blood pressure 126/83, pulse ox 93%. We have ordered pancultures including blood culture, sputum, urine, CHAVEZ drain cultures to be obtained. Patient is continued on sedation, intubation and mechanical ventilation. Tidal volume FiO2 550, FiO2 40, PEEP of 5. Repeat lab work reveals white count of 9.4, hemoglobin 7.6, count 372. Sodium 151, potassium 3.4, chloride 119, CO2 24, creatinine 0.94, BUN 27. Blood sugars running between 170 and 182. General surgery planning for wound VAC to the abdominal incision. Patient is now on IV Lasix [address] Mendoza is concern for evolving ARDS. Anticipate probable trach and PEG tube placement by the end of the week. 09/24: The patient remains intubated and on mechanical ventilation with tidal volume 550, FiO2 50%, PEEP 5. Patient remains on sedation. No low-grade fevers this morning. 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 Patient remains on Cardizem drip and heparin drip. Blood pressure is currently stable. Lasix is at 40 mg IV every 12 hours with noted decrease edema. Patient has good urine output, positive stool output. Patient has been started on Solu-Cortef. 09/25: Patient remains intubated and on mechanical ventilation with tidal volume 550, FiO2 40, PEEP 5. He is on norepinephrine. Patient is scheduled for trach and PEG tube tomorrow. NG tube is in place to suction. He still noted to have generalized anasarca and now hydrocele on the scrotum. Patient has been afebrile, heart rate 88, blood pressure 117/68. Repeat lab work reveals hemoglobin 7.5, WBC 9.4, hemoglobin 323. Sodium 146, potassium 3.6, chloride 114, CO2 24, BUN 26, creatinine 0.82. Blood sugars in the low 200s. Patient will be started on Levemir 6 units daily. 09/26: Patient remains in the intensive care unit, intubated and on mechanical ventilation with a 5 O2 of 40% and PEEP of 5. He is scheduled for PEG tube and trach placement today. Chest x-ray reveals diffuse pleuroparenchymal changes are stable and correlate for pneumonia versus heart failure. Patient remains on Cardizem and heparin drip for atrial fibrillation, controlled rate. The patient also continued on full, soft and Zosyn. Culture from CHAVEZ drain is positive for Staphylococcus epidermidis and gram-negative bacilli. Lasix currently at 40 mg IV every 8 hours and Solu-Cortef 50 mg IV every 12 hours. A blood sugars remain elevated and Levemir will be increased to 10 units. CHAVEZ drain was scant amount of drainage. Gastric tube remains in place. Wound VAC for abdominal wound. 09/27: Patient had trach placed yesterday but PEG tube was unsuccessful. He remains on mechanical ventilation with tidal volume 550, FiO2 45 and PEEP of 5. NG tube is in place. Patient is on TPN. He remains on Cardizem drip and to resume heparin drip later today. He is currently off sedation. Temperature max 100.4. Heart rate 150 with atrial fibrillation, respirations 26, blood pressure 95/61, pulse ox 95%. WBC 12.8, hemoglobin 8.2, platelet count 292. Sodium 142, potassium 4.2, chloride 108, CO2 23, BUN 20 creatinine 1.04. Blood sugars are r unning between 184 and 233. Magnesium 2.1 phosphorus 4.8. Today, cardiology has started the patient on amiodarone drip for rate control. Levemir will be increased 12 units daily. Repeat chest x-ray reveals no significant interval change. 09/28: Yesterday, patient became tachypneic and desaturated require going back on levo fed which is currently at 30 mics. Patient did not have any urine output or minimal output. He was started on amiodarone yesterday morning and heart rate decreased around 2 PM. Patient has received a total of 2500, rales fluid bolus. Lasix 1 dose was given last evening to 40 mg and he scheduled for 80 mg this morning. We will plan to start him on 80 mg every 12 hours. Patient was also started on Nimbex. CAT scan of the abdomen was done which revealed interval development of moderate bilateral pleural effusions with associated atelectasis or consolidation. Cardiomegaly, hepatomegaly. Ascites within the abdomen without definite abscess formation. Stable wedge compression fracture of T12. The patient's nurse relates that they did see a small amount of pus at the wound site and culture was obtained which is in progress. Patient is continued on amiodarone, Cardizem drip and heparin drip for atrial fibrillation. He has continued also on TPN. Temperature max in past 24 hours 100.4. Heart rate is currently 88, blood pressure 115/72. WBC 15.2, hemoglobin 7.4, platelet count 300. Sodium 139, potassium 5.4, chloride 108, BUN 42 and creatinine 1.96. Blood sugars in the 200s. Levemir will be increased to 15 units. 09/29 patient examined bedside continues to have significantly elevated creatinine with the improvement worsening of creatinine from 1.96-2.73 today. Patient's oxygen needs have worsened since yesterday with increase in FiO2 70%. Arterial blood class done today suggest a pH of 7.23 pO2 of 47 pCO2 of 40. Vitals are stable currently patient is off Levophed since 5 this morning urine output is still low at 10 mL per hour. Continue TPN at 55 mL per hour for. Patient's glucose this morning is 266. Will switch patient's insulin to insulin drip. Continue Lasix 80 IV twice a day. Nephrology is consulted and recommends sodium bicarb tablet along with PhosLo 09/30 patient remains intubated with no improvement in oxygenation. Patient desaturated into the low 80% on 9200% of FiO2. Renal replacement therapy started today per patient's potassium continued to rise with a potassium of 5.6 with increasing creatinine of 3.68. Patient continues on Lasix 80 twice a day with no improvement in urine output. FiO2 increased to 100% with a PEEP of 10. Patient's prognosis is poor. I spoke with multiple family members including and brother and updated on patient's prognosis. Patient is currently on 30 mics of Levophed . Urine output 5 mL per hour. Objective - Vital Signs Vital signs: Vital Signs Temp 97.6 F 09/30/18 08:00 Pulse 100 09/30/18 15:38 Resp 40 H 09/30/18 15:30 BP 88/52 09/30/18 11:15 Pulse Ox 86 L 09/30/18 11:15 Intake & Output 09/29/18 09/30/18 09/30/18 18:59 06:59 18:59 Intake Total 2635.928 0045.811 1323.323 Output Total 2850 1448 40 Balance -214.072 439.183 9733.323 Weight 158.7 kg 162.3 kg Intake: IV 1105 880 425 0.9 Normal saline @ 10ml/ 110 50 hr Fluconazole in NaCl,Iso- 100 100 Osm 200 mg In Saline 1 100ml.bag @ 100 mls/hr IVPB DAILY [facility] Rx#: [id number] Meropenem 1 gm In Sodium 100 100 Chloride 0.9% 100 ml @ 200 mls/hr IVPB Q12H [facility] Rx#:[id number] Mvi, Adult No.4 with Vit 605 660 275 K 10 ml Trace (Conc-1Ml/ Dose) 1 ml Calcium Gluconate 1 gm Potassium Acetate 20 meq Sodium Acetate 20 meq Magnesium Sulfate gm 1 gm In Amino Acid 5%-D15w 1,000 ml @ 55 mls/hr IV .[id number] [facility] Rx#:[id number] Sodium Chloride 0.9% 1, 300 10 000 ml @ 100 mls/hr IV . Q10H [facility] Rx#:[id number] Intake, IV Titration 680.928 693.912 679.323 Amount Cisatracurium 200 mg In 200 200 Sodium Chloride 0.9% 180 ml @ 1 MCG/KG/MIN 9.03 mls/hr IV .[id number] [facility] Rx# :[id number] Diltiazem 125 mg In 125 125 Sodium Chloride 0.9% 100 ml @ 5 MG/HR 5 mls/hr IV .Q24H [facility] Rx#:[id number] Heparin Sod,Pork in 0.45% 92.315 130.474 250 NaCl 25,000 unit In 0.45 % NaCl 1 250ml.bag @ 6.1 UNITS/KG/HR 9.998 mls/hr IV .Q24H [facility] Rx#: [id number] Insulin Regular 100 unit 63.613 138.438 85.446 In Sodium Chloride 0.9% 100 ml @ Per Protocol IV .Q0M [facility] Rx#:[id number] Norepinephrine 8 mg In 64.005 Sodium Chloride 0.9% 250 ml @ 0.05 MCG/KG/MIN 14. 35 mls/hr IV .[id number] [facility] Rx#:[id number] Propofol 1,000 mg In 200 100 279.872 Empty Bag 1 bag @ Titrate IV .Q0M [facility] Rx#: [id number] Oral 670 Tube Feeding 180 210 120 Other 200 30 Output: Drainage 2400 1350 Abdomen 1400 500 Medial Abdomen 1000 850 Urine 150 98 40 Stool 300 Other: Voiding Method Indwelling Catheter Indwelling Catheter ABP, PAP, CO, CI - Last Documented Arterial Blood Pressure 112/52 - Exam Gen: This is a 72-year-old morbidly obese male. He is in the intensive care unit. Patient is intubated and on mechanical ventilation. Patient appears to be comfortable. HEENT: Head is atraumatic, normocephalic. Pupils equal, round. Sclerae is anicteric. NG tube in place to suction. Trach in place connected to mechanical ventilation. NECK: Supple. No JVD. No lymphadenopathy. No thyromegaly. LUNGS: Diminished bilaterally with scattered rhonchi. Patient appears comfortable. HEART: Irregular rate and rhythm. Systolic murmur. 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 ABDOMEN: Soft. Large. Normal bowel sounds are present. Colostomy in the left upper quadrant with stool output. There is a large mid abdominal incision with wound VAC. CHAVEZ drain. Foster catheter draining clear urine. EXTREMITIES: anasarca and 1+ bilateral pedal edema. Midline to right upper arm. Dialysis catheter in the right groin NEUROLOGICAL: Patient is sedated. - Labs CBC & Chem 7: 09/30/18 04:35 09/30/18 04:35 Labs: Abnormal Lab Results - Last 24 Hours (Table) 09/29/18 09/29/18 09/29/18 Range/Units 16:26 17:00 18:17 WBC (3.8-10.6) k/uL RBC (4.30-5.90) m/uL Hgb (13.0-17.5) gm/dL Hct (39.0-53.0) % MCV (80.0-100.0) fL MCH (25.0-35.0) pg MCHC (31.0-37.0) g/dL RDW (11.5-15.5) % Neutrophils # (Manual) (1.3-7.7) k/uL Lymphocytes # (Manual) (1.0-4.8) k/uL Metamyelocytes # (Man) (0) k/uL Nucleated RBCs (0-0) /100 WBC APTT (22.0-30.0) sec ABG pH (7.35-7.45) ABG pCO2 (35-45) mmHg ABG pO2 (83-108) mmHg ABG O2 Saturation (94-97) % Sodium 135 L (137-145) mmol/L Potassium 5.6 H (3.5-5.1) mmol/L Carbon Dioxide 15 L (22-30) mmol/L BUN 66 H (9-20) mg/dL Creatinine 3.39 H (0.66-1.25) mg/dL Glucose 204 H (74-99) mg/dL POC Glucose (mg/dL) 220 H 214 H (75-99) mg/dL Calcium 7.7 L (8.4-10.2) mg/dL Phosphorus (2.5-4.5) mg/dL Magnesium (1.6-2.3) mg/dL 09/29/18 09/29/18 09/29/18 Range/Units 19:38 22:34 23:16 WBC (3.8-10.6) k/uL RBC (4.30-5.90) m/uL Hgb (13.0-17.5) gm/dL Hct (39.0-53.0) % MCV (80.0-100.0) fL MCH (25.0-35.0) pg MCHC (31.0-37.0) g/dL RDW (11.5-15.5) % Neutrophils # (Manual) (1.3-7.7) k/uL Lymphocytes # (Manual) (1.0-4.8) k/uL Metamyelocytes # (Man) (0) k/uL Nucleated RBCs (0-0) /100 WBC APTT (22.0-30.0) sec ABG pH (7.35-7.45) ABG pCO2 (35-45) mmHg ABG pO2 (83-108) mmHg ABG O2 Saturation (94-97) % Sodium (137-145) mmol/L Potassium (3.5-5.1) mmol/L Carbon Dioxide (22-30) mmol/L BUN (9-20) mg/dL Creatinine (0.66-1.25) mg/dL Glucose (74-99) mg/dL POC Glucose (mg/dL) 241 H 197 H 252 H (75-99) mg/dL Calcium (8.4-10.2) mg/dL Phosphorus (2.5-4.5) mg/dL Magnesium (1.6-2.3) mg/dL 09/29/18 09/30/18 09/30/18 Range/Units 23:53 00:01 01:13 WBC (3.8-10.6) k/uL RBC (4.30-5.90) m/uL Hgb (13.0-17.5) gm/dL Hct (39.0-53.0) % MCV (80.0-100.0) fL MCH (25.0-35.0) pg MCHC (31.0-37.0) g/dL RDW (11.5-15.5) % Neutrophils # (Manual) (1.3-7.7) k/uL Lymphocytes # (Manual) (1.0-4.8) k/uL Metamyelocytes # (Man) (0) k/uL Nucleated RBCs (0-0) /100 WBC APTT (22.0-30.0) sec ABG pH (7.35-7.45) ABG pCO2 (35-45) mmHg ABG pO2 (83-108) mmHg ABG O2 Saturation (94-97) % Sodium (137-145) mmol/L Potassium 5.6 H (3.5-5.1) mmol/L Carbon Dioxide (22-30) mmol/L BUN (9-20) mg/dL Creatinine (0.66-1.25) mg/dL Glucose (74-99) mg/dL POC Glucose (mg/dL) 243 H 188 H (75-99) mg/dL Calcium (8.4-10.2) mg/dL Phosphorus (2.5-4.5) mg/dL Magnesium (1.6-2.3) mg/dL 09/30/18 09/30/18 09/30/18 Range/Units 02:12 02:14 02:16 WBC (3.8-10.6) k/uL RBC (4.30-5.90) m/uL Hgb (13.0-17.5) gm/dL Hct (39.0-53.0) % MCV (80.0-100.0) fL MCH (25.0-35.0) pg MCHC (31.0-37.0) g/dL RDW (11.5-15.5) % Neutrophils # (Manual) (1.3-7.7) k/uL Lymphocytes # (Manual) (1.0-4.8) k/uL Metamyelocytes # (Man) (0) k/uL Nucleated RBCs (0-0) /100 WBC APTT (22.0-30.0) sec ABG pH (7.35-7.45) ABG pCO2 (35-45) mmHg ABG pO2 (83-108) mmHg ABG O2 Saturation (94-97) % Sodium (137-145) mmol/L Potassium (3.5-5.1) mmol/L Carbon Dioxide (22-30) mmol/L BUN (9-20) mg/dL Creatinine (0.66-1.25) mg/dL Glucose (74-99) mg/dL POC Glucose (mg/dL) 525 H 207 H 209 H (75-99) mg/dL Calcium (8.4-10.2) mg/dL Phosphorus (2.5-4.5) mg/dL Magnesium (1.6-2.3) mg/dL 09/30/18 09/30/18 09/30/18 Range/Units 03:20 04:06 04:35 WBC (3.8-10.6) k/uL RBC (4.30-5.90) m/uL Hgb (13.0-17.5) gm/dL Hct (39.0-53.0) % MCV (80.0-100.0) fL MCH (25.0-35.0) pg MCHC (31.0-37.0) g/dL RDW (11.5-15.5) % Neutrophils # (Manual) (1.3-7.7) k/uL Lymphocytes # (Manual) (1.0-4.8) k/uL Metamyelocytes # (Man) (0) k/uL Nucleated RBCs (0-0) /100 WBC APTT (22.0-30.0) sec ABG pH (7.35-7.45) ABG pCO2 (35-45) mmHg ABG pO2 (83-108) mmHg ABG O2 Saturation (94-97) % Sodium (137-145) mmol/L Potassium 5.3 H (3.5-5.1) mmol/L Carbon Dioxide 19 L (22-30) mmol/L BUN 73 H (9-20) mg/dL Creatinine 3.68 H (0.66-1.25) mg/dL Glucose 173 H (74-99) mg/dL POC Glucose (mg/dL) 186 H 188 H (75-99) mg/dL Calcium 7.8 L (8.4-10.2) mg/dL Phosphorus 8.7 H (2.5-4.5) mg/dL Magnesium 2.4 H (1.6-2.3) mg/dL 09/30/18 09/30/18 09/30/18 Range/Units 04:35 04:56 05:02 WBC 11.7 H (3.8-10.6) k/uL RBC 4.01 L (4.30-5.90) m/uL Hgb 7.3 L (13.0-17.5) gm/dL Hct 28.5 L (39.0-53.0) % MCV 71.0 L (80.0-100.0) fL MCH 18.1 L (25.0-35.0) pg MCHC 25.5 L (31.0-37.0) g/dL RDW 22.9 H (11.5-15.5) % Neutrophils # (Manual) 9.90 H (1.3-7.7) k/uL Lymphocytes # (Manual) 0.70 L (1.0-4.8) k/uL Metamyelocytes # (Man) 0.12 H (0) k/uL Nucleated RBCs 9 H (0-0) /100 WBC APTT (22.0-30.0) sec ABG pH 7.19 L* (7.35-7.45) ABG pCO2 57 H (35-45) mmHg ABG pO2 56 L* (83-108) mmHg ABG O2 Saturation 91.9 L (94-97) % Sodium (137-145) mmol/L Potassium (3.5-5.1) mmol/L Carbon Dioxide (22-30) mmol/L BUN (9-20) mg/dL Creatinine (0.66-1.25) mg/dL Glucose (74-99) mg/dL POC Glucose (mg/dL) 180 H (75-99) mg/dL Calcium (8.4-10.2) mg/dL Phosphorus (2.5-4.5) mg/dL Magnesium (1.6-2.3) mg/dL 09/30/18 09/30/18 09/30/18 Range/Units 06:14 06:30 07:11 WBC (3.8-10.6) k/uL RBC (4.30-5.90) m/uL Hgb (13.0-17.5) gm/dL Hct (39.0-53.0) % MCV (80.0-100.0) fL MCH (25.0-35.0) pg MCHC (31.0-37.0) g/dL RDW (11.5-15.5) % Neutrophils # (Manual) (1.3-7.7) k/uL Lymphocytes # (Manual) (1.0-4.8) k/uL Metamyelocytes # (Man) (0) k/uL Nucleated RBCs (0-0) /100 WBC APTT 66.6 H (22.0-30.0) sec ABG pH (7.35-7.45) ABG pCO2 (35-45) mmHg ABG pO2 (83-108) mmHg ABG O2 Saturation (94-97) % Sodium (137-145) mmol/L Potassium (3.5-5.1) mmol/L Carbon Dioxide (22-30) mmol/L BUN (9-20) mg/dL Creatinine (0.66-1.25) mg/dL Glucose (74-99) mg/dL POC Glucose (mg/dL) 195 H 177 H (75-99) mg/dL Calcium (8.4-10.2) mg/dL Phosphorus (2.5-4.5) mg/dL Magnesium (1.6-2.3) mg/dL 09/30/18 09/30/18 09/30/18 Range/Units 07:59 08:14 09:03 WBC (3.8-10.6) k/uL RBC (4.30-5.90) m/uL Hgb (13.0-17.5) gm/dL Hct (39.0-53.0) % MCV (80.0-100.0) fL MCH (25.0-35.0) pg MCHC (31.0-37.0) g/dL RDW (11.5-15.5) % Neutrophils # (Manual) (1.3-7.7) k/uL Lymphocytes # (Manual) (1.0-4.8) k/uL Metamyelocytes # (Man) (0) k/uL Nucleated RBCs (0-0) /100 WBC APTT (22.0-30.0) sec ABG pH 7.23 L (7.35-7.45) ABG pCO2 53 H (35-45) mmHg ABG pO2 124 H (83-108) mmHg ABG O2 Saturation 98.9 H (94-97) % Sodium (137-145) mmol/L Potassium (3.5-5.1) mmol/L Carbon Dioxide (22-30) mmol/L BUN (9-20) mg/dL Creatinine (0.66-1.25) mg/dL Glucose (74-99) mg/dL POC Glucose (mg/dL) 164 H 153 H (75-99) mg/dL Calcium (8.4-10.2) mg/dL Phosphorus (2.5-4.5) mg/dL Magnesium (1.6-2.3) mg/dL 09/30/18 09/30/18 09/30/18 Range/Units 10:54 11:56 13:24 WBC (3.8-10.6) k/uL RBC (4.30-5.90) m/uL Hgb (13.0-17.5) gm/dL Hct (39.0-53.0) % MCV (80.0-100.0) fL MCH (25.0-35.0) pg MCHC (31.0-37.0) g/dL RDW (11.5-15.5) % Neutrophils # (Manual) (1.3-7.7) k/uL Lymphocytes # (Manual) (1.0-4.8) k/uL Metamyelocytes # (Man) (0) k/uL Nucleated RBCs (0-0) /100 WBC APTT (22.0-30.0) sec ABG pH (7.35-7.45) ABG pCO2 (35-45) mmHg ABG pO2 (83-108) mmHg ABG O2 Saturation (94-97) % Sodium (137-145) mmol/L Potassium (3.5-5.1) mmol/L Carbon Dioxide (22-30) mmol/L BUN (9-20) mg/dL Creatinine (0.66-1.25) mg/dL Glucose (74-99) mg/dL POC Glucose (mg/dL) 171 H 165 H 181 H (75-99) mg/dL Calcium (8.4-10.2) mg/dL Phosphorus (2.5-4.5) mg/dL Magnesium (1.6-2.3) mg/dL 09/30/18 Range/Units 14:52 WBC (3.8-10.6) k/uL RBC (4.30-5.90) m/uL Hgb (13.0-17.5) gm/dL Hct (39.0-53.0) % MCV (80.0-100.0) fL MCH (25.0-35.0) pg MCHC (31.0-37.0) g/dL RDW (11.5-15.5) % Neutrophils # (Manual) (1.3-7.7) k/uL Lymphocytes # (Manual) (1.0-4.8) k/uL Metamyelocytes # (Man) (0) k/uL Nucleated RBCs (0-0) /100 WBC APTT (22.0-30.0) sec ABG pH (7.35-7.45) ABG pCO2 (35-45) mmHg ABG pO2 (83-108) mmHg ABG O2 Saturation (94-97) % Sodium (137-145) mmol/L Potassium (3.5-5.1) mmol/L Carbon Dioxide (22-30) mmol/L BUN (9-20) mg/dL Creatinine (0.66-1.25) mg/dL Glucose (74-99) mg/dL POC Glucose (mg/dL) 179 H (75-99) mg/dL Calcium (8.4-10.2) mg/dL Phosphorus (2.5-4.5) mg/dL Magnesium (1.6-2.3) mg/dL Microbiology - Last 24 Hours (Table) 09/27/18 10:36 Blood Culture - Preliminary Blood No Growth after 72 hours 09/27/18 10:10 Gram Stain - Final Abdomen Wound Culture - Final Escherichia coli Mucor species 09/24/18 00:40 Blood Culture - Final Blood No Growth after 144 hours 09/29/18 15:45 Catheter Tip Culture - Preliminary Catheter Tip 09/27/18 10:10 Anaerobic Culture - Preliminary Abdomen Assessment and Plan Plan: 1. Abdominal pain secondary to perforated gastric ulcer, ischemic colon at the splenic flexure with bowel obstruction status post exploratory laparotomy, lysis of adhesions, repair of gastric ulcer, transverse colectomy and takedown of the splenic flexure. Continue fluconazole, on daptomycin and meropenem. Dr. Benedict consult appreciated. The patient has been seen by ostomy nurse. Trach performed on saturday, PEG couldnot be performed. 2. Septic shock status post IV fluid resuscitation on vasopressors. Patient is on Nimbex, pressure continues to drop on pressors 3. Acute on chronic hypoxic respiratory failure secondary to above. Patient is currently intubated and on mechanical ventilation. Patient is managed by Dr. Mendoza. Dr. Mendoza concern for ARDS. Trach placement on 09/26 4. Acute kidney injury secondary to shock and ATN. Continue to monitor closely continue to worsen. Initiated on dialysis today 5. Lactic acidosis. 6. Paroxysmal atrial fibrillation with A. fib RVR. Eliquis is on hold. Patient is status post Kcentra for reversal of eliquis. Continue Cardizem drip and Amiodarone dripdiscontinued Continue heparin drip. Rate is currently controlled 7. Acute and chronic diastolic heart failure and generalized anasarca. IV La six 80 mg iv bi d. Patient is status post albumin. 8. Severe COPD, stable. 9. Obstructive sleep apnea with CPAP, noncompliance. 10. Mild intermittent asthma, stable. 11. Hyperlipidemia. 12. Gastroesophageal reflux disease and GI prophylaxis. Continue Protonix 40 mg IV daily. 13. Diabetes mellitus type 2 uncontrolled with hyperglycemia secondary to steroids. switched to insulin drip 14. Severe protein calorie malnutrition due to nothing by mouth status. Patient on TPN. 15. Left atrial appendage thrombus found on MIKE during last admission. on heparin drip 16. Hypernatremia and hyperchloremia. 17. Adrenal insufficiency secondary to illness. Patient has been started on hydrocortef 50 mg IV every 12 hours. Prognosis poor. Discharge plan: patient's prognosis is poor family updated and would like to continue aggressive care.
[2018-09-30] MEDS: HEPARIN SOD,PORK IN 0.45% NACL 25,000 UNIT in 0.45% NACL 1 250ML.BAG IV SCH (16:40)
[2018-09-30] MEDS ORDERED: MVI, ADULT NO.4 WITH VIT K 10 ML, TRACE (CONC-1ML/DOSE) 1 ML, CALCIUM GLUCONATE 1 GM, S... IV SCH ×5 (17:00)
[2018-09-30 17:05] LABS: Glucose,Whole Blood 137 mg/dL (75-99)
[2018-09-30] MEDS ORDERED: ANIDULAFUNGIN 200 MG in SODIUM CHLORIDE 0.9% 200 ML IVPB ONE (18:00)
--- NOTE | 2018-09-30 18:27 | PN ---
PROGRESS NOTE DATE OF SERVICE: 09/30/2018 REASON FOR FOLLOWUP: Abdominal sepsis. INTERVAL HISTORY: The patient did have overall worsening of his clinical condition, as the patient was noted to have worsening of his kidney function as well. The patient is hypotensive, requiring pressor support in the form of Levophed that is currently running at 20 mcg. The patient did have insertion of the right groin dialysis catheter for initiation of dialysis in view of worsening of his kidney function. The patient is currently sedated on the vent and FiO2 is almost up 90. REVIEW OF SYSTEMS: Positive points as mentioned in HPI. A complete review could not be obtained because of his underlying condition. Past medical and surgical history review: No change. Medication reviewed. PHYSICAL EXAMINATION: Blood pressure is 97/53 with a pulse of 101, temperature of 98. He is 94% on 90% FiO2. General description is an elderly male lying in bed in no distress. HEENT EXAMINATION: Pallor. The patient is orally intubated. LUNGS: Unlabored breathing. Clear to auscultation anteriorly. HEART: S1, S2. Tachycardic. ABDOMEN: Soft. The midline incision is currently covered with a wound V.A.C. that was changed yesterday. Surrounding margins are pink with no black discoloration. He has significant output in his CHAVEZ drain, which is hooked to suction. EXTREMITIES: Some trace edema of the feet. LABS: Hemoglobin is 7.3, white count of 11.7, BUN of 73, creatinine 3.68. DIAGNOSTIC IMPRESSION AND PLAN: Patient with abdominal sepsis in this patient who did have perforated peptic ulcer disease with ischemic splenic flexure, status post extensive surgery and diverting colostomy. The patient did have a culture obtained from the CHAVEZ drain, which is showing Staph epidermidis and E coli, with the abdominal surgical cultures showing E coli and mucor species. I did call the micro lab in [place]; however, they are not able to confirm that this has been mucormycosis species. Clinically the patient is not behaving as such, as CT of abdomen and pelvis which was done did not show any evidence of abscesses. The wound margin looks clean with no evidence of any black eschar. Putting this patient through unnecessary amphotericin B will definitely shut down his kidneys. This patient also is currently in acute renal failure. They will look at the slide and let me know tomorrow. In the meantime, antibiotic will be continued in the form of Meropenem and daptomycin with antifungal switched to Eraxis. Overall prognosis remains guarded. Continue with supportive care. MMODL / IJN: [id number] /
[2018-09-30 18:55] LABS: Glucose,Whole Blood 130 mg/dL (75-99)
[2018-09-30 19:58] LABS: Glucose,Whole Blood 128 mg/dL (75-99)
[2018-09-30 20:03] LABS: Glucose,Whole Blood 105 mg/dL (75-99)
[2018-09-30 21:56] LABS: Glucose,Whole Blood 111 mg/dL (75-99)
[2018-10-01 00:22] LABS: Glucose,Whole Blood 146 mg/dL (75-99)
[2018-10-01] MEDS: INSULIN REGULAR 100 UNIT in SODIUM CHLORIDE 0.9% 100 ML IV SCH ×2 (00:31→16:10)
[2018-10-01] MEDS: DILTIAZEM 125 MG in SODIUM CHLORIDE 0.9% 100 ML IV SCH (01:46)
[2018-10-01] MEDS: HYDROmorphone 1 MG/ML 1 ML SYRINGE IVP PRN (01:53)
[2018-10-01 02:10] LABS: Glucose,Whole Blood 136 mg/dL (75-99)
[2018-10-01] MEDS: IPRATROPIUM-ALBUTEROL 3 ML NEB INHALATION SCH ×6 (03:07→22:56)
[2018-10-01 03:58] LABS: ABG HCO3 22 mmol/L (21-25); ABG Oxygen Saturation 94.7 % (94-97); ABG PCO2 51 mmHg (35-45); ABG PH 7.25 (7.35-7.45); ABG PO2 63 mmHg (83-108); ABG TCO2 24 mmol/L (19-24); Allen Test Performed? Yes
[2018-10-01] MEDS: HYDROmorphone 1 MG/ML 1 ML SYRINGE IVP SCH ×5 (04:07→20:56)
[2018-10-01 04:12] LABS: Glucose,Whole Blood 83 mg/dL (75-99)
[2018-10-01 04:23] LABS: Calcium 7.2 mg/dL (8.4-10.2); Magnesium 2.1 mg/dL (1.6-2.3)
[2018-10-01 04:24] LABS: Anisocytosis Moderate; HCT 26.8 % (39.0-53.0); HGB 7.1 gm/dL (13.0-17.5); Hypochromasia Marked; MCH 19.2 pg (25.0-35.0); MCHC 26.3 g/dL (31.0-37.0); Mean Platelet Volume 6.7; Microcytosis Marked; Platelet Count 320 k/uL (150-450); Poikilocytosis Moderate; RBC 3.67 m/uL (4.30-5.90); RDW 22.4 % (11.5-15.5)
[2018-10-01 04:38] LABS: Phosphorus 9.1 mg/dL (2.5-4.5)
[2018-10-01 04:47] LABS: Band Neutrophils % 2 %; Eosinophils # (M) 0.11 k/uL (0-0.7); Lymphocytes # (M) 0.85 k/uL (1.0-4.8); Monocytes # (M) 0.21 k/uL (0-1.0); Neutrophils % (M) 89 %; Nucleated Red Blood Cells 10 /100 WBC (0-0); Total Cells Counted 200; WBC 10.6 k/uL (3.8-10.6)
[2018-10-01 04:48] LABS: Poikilocytosis (M) Present; Polychromasia Present
[2018-10-01] MEDS: HEPARIN SOD,PORK IN 0.45% NACL 25,000 UNIT in 0.45% NACL 1 250ML.BAG IV SCH ×3 (05:54→23:08)
[2018-10-01] MEDS: PROPOFOL 1,000 MG in EMPTY BAG 1 BAG IV SCH ×8 (06:14→23:51)
[2018-10-01 06:34] LABS: Glucose,Whole Blood 175 mg/dL (75-99)
[2018-10-01] MEDS: CALCIUM ACETATE 667 MG CAP PO SCH ×3 (06:43→18:08)
[2018-10-01] MEDS ORDERED: AMIODARONE 360 MG in DEXTROSE 5% IN WATER 200 ML IV ONE ×2 (06:59)
[2018-10-01 07:01] LABS: Glucose,Whole Blood 147 mg/dL (75-99)
--- NOTE | 2018-10-01 07:21 | P.PN ---
Subjective Progress Note Date: 10/01/18 Principal diagnosis: Atrial fibrillation/persistent This is a 72-year-old gentleman with a past medical history significant for morbid obesity, chronic atrial fibrillation, chronic diastolic congestive heart failure, as well as multiple comorbid conditions, who was admitted to the hospital with perforated peptic ulcer and he underwent exploratory laparotomy. We get involved in his care for the management of atrial fibrillation. On follow-up with the patient today, 10/01/2018, the patient continues to be intubated on mechanical ventilation. Hemodynamically, unfortunately continues to be unstable and requiring norepinephrine. He did have dialysis yesterday. She converted to normal sinus mechanism last night. He is currently on Cardizem and drip for the atrial fibrillation. I will and going to DC the Cardizem and showed and start the patient on amiodarone IV, to give her room to wean him from the norepinephrine. Overall prognosis is very poor. Objective - Vital Signs Vital signs: Vital Signs Temp 98 F 10/01/18 00:00 Pulse 98 10/01/18 07:00 Resp 40 H 10/01/18 07:00 BP 104/65 10/01/18 07:00 Pulse Ox 95 10/01/18 07:00 Intake & Output 09/30/18 10/01/18 10/01/18 18:59 06:59 18:59 Intake Total 6094.679 1258.669 61 Output Total 2790 1040 0 Balance -968.120 751.669 61 Weight 164.8 kg Intake: IV 495 370 10 0.9 Normal saline @ 10ml/ 120 120 10 hr Anidulafungin 200 mg In 200 Sodium Chloride 0.9% 200 ml @ 84 mls/hr IVPB ONCE ONE Rx#:[id number] DAPTOmycin 900 mg In 50 Sodium Chloride 0.9% 50 ml @ 100 mls/hr IVPB Q48H [facility] Rx#:[id number] Fluconazole in NaCl,Iso- 100 Osm 200 mg In Saline 1 100ml.bag @ 100 mls/hr IVPB DAILY [facility] Rx#: [id number] Mvi, Adult No.4 with Vit 275 K 10 ml Trace (Conc-1Ml/ Dose) 1 ml Calcium Gluconate 1 gm Potassium Acetate 20 meq Sodium Acetate 20 meq Magnesium Sulfate gm 1 gm In Amino Acid 5%-D15w 1,000 ml @ 55 mls/hr IV .[id number] [facility] Rx#:[id number] Intake, IV Titration 1056.880 846.669 Amount Cisatracurium 200 mg In 168.861 Sodium Chloride 0.9% 180 ml @ 1 MCG/KG/MIN 9.03 mls/hr IV .[id number] [facility] Rx# :[id number] Diltiazem 125 mg In 125 Sodium Chloride 0.9% 100 ml @ 5 MG/HR 5 mls/hr IV .Q24H [facility] Rx#:[id number] Heparin Sod,Pork in 0.45% 250 250 NaCl 25,000 unit In 0.45 % NaCl 1 250ml.bag @ 6.1 UNITS/KG/HR 9.998 mls/hr IV .Q24H [facility] Rx#: [id number] Insulin Regular 100 unit 91.556 13.669 In Sodium Chloride 0.9% 100 ml @ Per Protocol IV .Q0M [facility] Rx#:[id number] Norepinephrine 8 mg In 143.220 258.000 Sodium Chloride 0.9% 250 ml @ 0.05 MCG/KG/MIN 14. 35 mls/hr IV .[id number] [facility] Rx#:[id number] Propofol 1,000 mg In 403.243 200 Empty Bag 1 bag @ Titrate IV .Q0M [facility] Rx#: [id number] Tube Feeding 210 485 51 Other 60 90 Output: Drainage 1250 700 Abdomen 1250 700 Urine 40 190 0 Stool 150 Hemodialysis 1500 Other: Voiding Method Indwelling Catheter Indwelling Catheter ABP, PAP, CO, CI - Last Documented Arterial Blood Pressure 112/52 - Constitutional General appearance: Present: no acute distress - Respiratory Respiratory: bilateral: diminished - Cardiovascular Rhythm: regular Heart sounds: normal: S1, S2 - Labs CBC & Chem 7: 10/01/18 04:00 10/01/18 04:00 Labs: Abnormal Lab Results - Last 24 Hours (Table) 09/30/18 09/30/18 09/30/18 Range/Units 07:59 08:14 09:03 RBC (4.30-5.90) m/uL Hgb (13.0-17.5) gm/dL Hct (39.0-53.0) % MCV (80.0-100.0) fL MCH (25.0-35.0) pg MCHC (31.0-37.0) g/dL RDW (11.5-15.5) % Neutrophils # (Manual) (1.3-7.7) k/uL Lymphocytes # (Manual) (1.0-4.8) k/uL Nucleated RBCs (0-0) /100 WBC APTT (22.0-30.0) sec ABG pH 7.23 L (7.35-7.45) ABG pCO2 53 H (35-45) mmHg ABG pO2 124 H (83-108) mmHg ABG O2 Saturation 98.9 H (94-97) % Carbon Dioxide (22-30) mmol/L BUN (9-20) mg/dL Creatinine (0.66-1.25) mg/dL Glucose (74-99) mg/dL POC Glucose (mg/dL) 164 H 153 H (75-99) mg/dL Calcium (8.4-10.2) mg/dL Phosphorus (2.5-4.5) mg/dL 09/30/18 09/30/18 09/30/18 Range/Units 10:54 11:56 13:24 RBC (4.30-5.90) m/uL Hgb (13.0-17.5) gm/dL Hct (39.0-53.0) % MCV (80.0-100.0) fL MCH (25.0-35.0) pg MCHC (31.0-37.0) g/dL RDW (11.5-15.5) % Neutrophils # (Manual) (1.3-7.7) k/uL Lymphocytes # (Manual) (1.0-4.8) k/uL Nucleated RBCs (0-0) /100 WBC APTT (22.0-30.0) sec ABG pH (7.35-7.45) ABG pCO2 (35-45) mmHg ABG pO2 (83-108) mmHg ABG O2 Saturation (94-97) % Carbon Dioxide (22-30) mmol/L BUN (9-20) mg/dL Creatinine (0.66-1.25) mg/dL Glucose (74-99) mg/dL POC Glucose (mg/dL) 171 H 165 H 181 H (75-99) mg/dL Calcium (8.4-10.2) mg/dL Phosphorus (2.5-4.5) mg/dL 09/30/18 09/30/18 09/30/18 Range/Units 14:52 17:03 18:54 RBC (4.30-5.90) m/uL Hgb (13.0-17.5) gm/dL Hct (39.0-53.0) % MCV (80.0-100.0) fL MCH (25.0-35.0) pg MCHC (31.0-37.0) g/dL RDW (11.5-15.5) % Neutrophils # (Manual) (1.3-7.7) k/uL Lymphocytes # (Manual) (1.0-4.8) k/uL Nucleated RBCs (0-0) /100 WBC APTT (22.0-30.0) sec ABG pH (7.35-7.45) ABG pCO2 (35-45) mmHg ABG pO2 (83-108) mmHg ABG O2 Saturation (94-97) % Carbon Dioxide (22-30) mmol/L BUN (9-20) mg/dL Creatinine (0.66-1.25) mg/dL Glucose (74-99) mg/dL POC Glucose (mg/dL) 179 H 137 H 130 H (75-99) mg/dL Calcium (8.4-10.2) mg/dL Phosphorus (2.5-4.5) mg/dL 09/30/18 09/30/18 09/30/18 Range/Units 19:56 20:01 21:50 RBC (4.30-5.90) m/uL Hgb (13.0-17.5) gm/dL Hct (39.0-53.0) % MCV (80.0-100.0) fL MCH (25.0-35.0) pg MCHC (31.0-37.0) g/dL RDW (11.5-15.5) % Neutrophils # (Manual) (1.3-7.7) k/uL Lymphocytes # (Manual) (1.0-4.8) k/uL Nucleated RBCs (0-0) /100 WBC APTT 65.0 H (22.0-30.0) sec ABG pH (7.35-7.45) ABG pCO2 (35-45) mmHg ABG pO2 (83-108) mmHg ABG O2 Saturation (94-97) % Carbon Dioxide (22-30) mmol/L BUN (9-20) mg/dL Creatinine (0.66-1.25) mg/dL Glucose (74-99) mg/dL POC Glucose (mg/dL) 128 H 105 H (75-99) mg/dL Calcium (8.4-10.2) mg/dL Phosphorus (2.5-4.5) mg/dL 09/30/18 10/01/18 10/01/18 Range/Units 21:54 00:20 01:57 RBC (4.30-5.90) m/uL Hgb (13.0-17.5) gm/dL Hct (39.0-53.0) % MCV (80.0-100.0) fL MCH (25.0-35.0) pg MCHC (31.0-37.0) g/dL RDW (11.5-15.5) % Neutrophils # (Manual) (1.3-7.7) k/uL Lymphocytes # (Manual) (1.0-4.8) k/uL Nucleated RBCs (0-0) /100 WBC APTT (22.0-30.0) sec ABG pH (7.35-7.45) ABG pCO2 (35-45) mmHg ABG pO2 (83-108) mmHg ABG O2 Saturation (94-97) % Carbon Dioxide (22-30) mmol/L BUN (9-20) mg/dL Creatinine (0.66-1.25) mg/dL Glucose (74-99) mg/dL POC Glucose (mg/dL) 111 H 146 H 136 H (75-99) mg/dL Calcium (8.4-10.2) mg/dL Phosphorus (2.5-4.5) mg/dL 10/01/18 10/01/18 10/01/18 Range/Units 03:53 04:00 04:00 RBC 3.67 L (4.30-5.90) m/uL Hgb 7.1 L (13.0-17.5) gm/dL Hct 26.8 L (39.0-53.0) % MCV 73.0 L (80.0-100.0) fL MCH 19.2 L (25.0-35.0) pg MCHC 26.3 L (31.0-37.0) g/dL RDW 22.4 H (11.5-15.5) % Neutrophils # (Manual) 9.60 H (1.3-7.7) k/uL Lymphocytes # (Manual) 0.85 L (1.0-4.8) k/uL Nucleated RBCs 10 H (0-0) /100 WBC APTT (22.0-30.0) sec ABG pH 7.25 L (7.35-7.45) ABG pCO2 51 H (35-45) mmHg ABG pO2 63 L (83-108) mmHg ABG O2 Saturation (94-97) % Carbon Dioxide 21 L (22-30) mmol/L BUN 66 H (9-20) mg/dL Creatinine 3.55 H (0.66-1.25) mg/dL Glucose 143 H (74-99) mg/dL POC Glucose (mg/dL) (75-99) mg/dL Calcium 7.2 L (8.4-10.2) mg/dL Phosphorus 9.1 H* (2.5-4.5) mg/dL 10/01/18 10/01/18 10/01/18 Range/Units 04:00 06:22 06:49 RBC (4.30-5.90) m/uL Hgb (13.0-17.5) gm/dL Hct (39.0-53.0) % MCV (80.0-100.0) fL MCH (25.0-35.0) pg MCHC (31.0-37.0) g/dL RDW (11.5-15.5) % Neutrophils # (Manual) (1.3-7.7) k/uL Lymphocytes # (Manual) (1.0-4.8) k/uL Nucleated RBCs (0-0) /100 WBC APTT 68.7 H (22.0-30.0) sec ABG pH (7.35-7.45) ABG pCO2 (35-45) mmHg ABG pO2 (83-108) mmHg ABG O2 Saturation (94-97) % Carbon Dioxide (22-30) mmol/L BUN (9-20) mg/dL Creatinine (0.66-1.25) mg/dL Glucose (74-99) mg/dL POC Glucose (mg/dL) 175 H 147 H (75-99) mg/dL Calcium (8.4-10.2) mg/dL Phosphorus (2.5-4.5) mg/dL Microbiology - Last 24 Hours (Table) 09/29/18 15:45 Catheter Tip Culture - Preliminary Catheter Tip Coagulase Negative Staph 09/27/18 10:36 Blood Culture - Preliminary Blood No Growth after 72 hours 09/27/18 10:10 Gram Stain - Final Abdomen Wound Culture - Final Escherichia coli Mucor species Assessment and Plan Assessment: Assessment #1 perforated peptic ulcer #2 status post surgery #3 chronic persistent atrial fibrillation #4 morbid obesity #5 acute renal failure #6 multiple comorbid conditions Plan #1 DC Cardizem drip and start the patient on amiodarone IV #2 continue anticoagulation with heparin IV #3 follow-up with the patient
[2018-10-01 08:04] LABS: Glucose,Whole Blood 197 mg/dL (75-99)
[2018-10-01] MEDS ORDERED: DEXTROSE 5% IN WATER 100 ML with AMIODARONE 150 MG IV ONE (08:05)
[2018-10-01] MEDS: NOREPINEPHRINE 8 MG in SODIUM CHLORIDE 0.9% 250 ML IV SCH ×2 (08:10→13:50)
--- NOTE | 2018-10-01 08:12 | P.PN ---
Progress Note - Text Progress Note Date: 10/01/18 pt s/e. HD calth placed in R fem vein yesterday. Underwent dialysis without issue. Remains trach/sedated. Catheter site clean, dry, no e/o hematoma Continue care per ICU mgmt. Please let us know if we can be of further assistance. Thank you.
--- NOTE | 2018-10-01 08:22 | PN ---
PROGRESS NOTE This is a pulmonary/critical care progress note. DATE OF SERVICE: October 01, 2018 CRITICAL CARE TIME: 35 minutes. This is a patient who was admitted back on September 16 for ischemic bowel and perforated ulcer. He went to the operating room on the day of admission, had a gastric ulcer repair, transverse colectomy and lysis of adhesions. The patient has been intubated since the surgery on August 27 and because of failure to wean, had a tracheostomy performed on September 26. He remains on the ventilator with ARDS. I have had ongoing discussions with the family about code status. It is very poor. They continue to want the patient to be a FULL CODE. The patient has been seen by multiple specialists including Cardiology, Infectious Disease, Nephrology, Surgery and Critical Care. Currently, the patient is on the volume assist-control mode rate of 40, tidal volume 500, FiO2 100%, PEEP of 10. Blood gases show pO2 of 63, a pCO2 of 51, and pH of 7.25. The patient did undergo hemodialysis yesterday, 1.5 L was removed. Because of hypotension during the process, the patient did require some norepinephrine. He remains on norepinephrine. His current IVs include saline at 10 mL an hour, norepinephrine at 22 mcg/minute, propofol 40 mcg/kg per minute, Cardizem at 15 mg an hour, heparin via weight based protocol, Nimbex at 2 mcg/kg per minute and Vital high- protein at 51 with a goal of 51 mL an hour. The patient's wound cultures showed Escherichia coli and he had evidence of Coag-negative staph on the catheter tip and in the wounds. He is currently being treated with appropriate antibiotics. In addition to all the above, the patient does have a history of acute kidney injury with ATN, multiorgan system failure, abdominal sepsis, paroxysmal atrial fibrillation, COPD, diastolic heart failure, failure to wean from mechanical ventilation, diabetes mellitus, and likely, critical illness polyneuropathy. PHYSICAL EXAMINATION: VITAL SIGNS: Current vital signs are reviewed. They include a temperature which is 98 degrees, heart rate which is 100, respiratory rate which is 40, blood pressure 101/62, mean 75 and saturations in the mid 90s. Appears currently in no acute distress. He is heavily sedated and paralyzed. HEENT: Examination is grossly unremarkable. NECK: Supple. Full range of motion. He has got a midline tracheostomy tube. CARDIOVASCULAR: Examination reveals irregular rhythm and rate. Heart rate is about 100 beats per minute. S1, S2 normal. No distinct murmur noted. Heart sounds are distant. LUNGS: Reveal diffuse coarse rhonchi. No wheezes or crackles. Breath sounds equal bilaterally. ABDOMEN: Is distended. Bowel sounds are noted. There is no mass or tenderness appreciated. EXTREMITIES: Are intact. He has got diffuse edema and anasarca throughout. SKIN: Is without rash. NEUROLOGIC: Examination could not be properly evaluated. LAB DATA: Lab data is reviewed. White count 10.6, hemoglobin 7.1, hematocrit 26.8, platelet count 320,000. Sodium 139, potassium 5, chloride 104, CO2 is 21. Anion gap is 14. BUN and creatinine were 66 and 3.55. Microbiology shows evidence of Coag-negative staph on the catheter tip from 09/29; E coli and Mucor species from the abdominal wound on 09/27 and Staph epidermidis and E coli from the Edwin-Harris drain on September 23. Currently, the patient is on daptomycin and Merrem for antibiotics. Doppler studies of the lower extremities although incomplete did not reveal any evidence of significant DVT. ASSESSMENT: 1. Chronic hypoxemic respiratory failure with failure to wean from mechanical ventilation with initial intubation on September 16 and subsequent tracheostomy on September 26, secondary to acute respiratory distress syndrome (ARDS). 2. Postoperative day #15, status post exploratory laparotomy, lysis of adhesions, repair of gastric ulcer and transverse colectomy. 3. Abdominal sepsis with septic shock. 4. Acute hypoxemic respiratory failure with acute respiratory distress syndrome secondary to sepsis. 5. Acute kidney injury/acute tubular necrosis. 6. Possible abdominal compartment syndrome. 7. Paroxysmal atrial fibrillation. 8. Chronic obstructive pulmonary disease. 9. Status post tracheostomy on September 26, postoperative day #5. 10.Acute diastolic heart failure. 11.Anion gap metabolic acidosis. 12.Failure to wean from mechanical ventilation. 13.Diabetes mellitus. 14.Chronic hypoxemic respiratory failure. 15.Critical illness polyneuropathy. 16.Escherichia coli and Staphylococcus epidermidis sepsis. PLAN: Overall the patient's prognosis is very poor. The patient was given dialysis yesterday, which resulted in hypotension requiring norepinephrine which he remains on. I had a long talk with the family yesterday. I spoke to the cylinder machine operator. His oxygenation is poor. He remains on multiple drips including norepinephrine, propofol, Cardizem, IV heparin, Nimbex, and he is getting tube feeds as well. Additional recommendations and suggestions are forthcoming. Will await x-rays and additional labs from today. Prognosis is very poor. I expressed that to the family multiple times. Other physicians have as well including Surgery. CRITICAL CARE TIME: 35 minutes. ROSEY / ASIAN: [id number] /
--- NOTE | 2018-10-01 08:46 | XR ---
EXAMINATION TYPE: XR chest 1V portable DATE OF EXAM: 10/01/2018 COMPARISON: Prior chest x-ray 09/30/2018 HISTORY: Mechanical ventilation, ICU management, abnormal chest x-ray TECHNIQUE: Single frontal view of the chest is obtained. FINDINGS: Patient is rotated. There is a tracheostomy tube, orogastric tube overlying appropriate po sition. Distal tip of the gastric tube not included on the exam. There is no evident pneumothorax. He art is enlarged. Bibasilar increased density persists. Central vascularity and interstitium are incre ased. Perihilar increased density noted. IMPRESSION: Findings are similar to prior exam. Correlate for congestive heart failure, pneumonia no t excluded, follow-up recommended. There may be basilar effusions.
[2018-10-01] MEDS: CHLORHEXIDINE GLUCONATE 15 ML CUP MUCOUS MEM SCH ×2 (09:15→20:58)
[2018-10-01] MEDS: PANTOPRAZOLE 40 MG/10 ML VIAL IVP SCH (09:15)
[2018-10-01] MEDS: FUROSEMIDE 10 MG/ML 10 ML VIAL IV SCH ×2 (09:15→20:57)
[2018-10-01] MEDS: SODIUM BICARBONATE TAB 650 MG TAB PO SCH ×3 (09:15→20:58)
[2018-10-01] MEDS: HYDROCORTISONE SUCCINATE 100 MG/2 ML VIAL IV SCH ×2 (09:15→20:57)
[2018-10-01 09:36] LABS: Glucose,Whole Blood 166 mg/dL (75-99)
[2018-10-01 10:15] LABS: Glucose,Whole Blood 178 mg/dL (75-99)
[2018-10-01] MEDS ORDERED: DARBEPOETIN ALFA 40 MCG/0.4 ML SYRINGE SQ SCH (10:15)
--- NOTE | 2018-10-01 10:20 | P.PN ---
Subjective Patient is seen in follow-up for acute kidney injury. Patient remains oliguric. He was started on hemodialysis September 30. Currently on 20 mics of Levophed. Potassium level is better. Currently receiving tube feeding. TPN has been discontinued. Vital signs are stable. Currently on vasopressors. General: The patient appeared well nourished and normally developed. HEENT: Head exam is unremarkable. Neck is without jugular venous distension. OG tube noted. LUNGS: Lungs are clear to auscultation and percussion. Breath sounds decreased. HEART: Rate and Rhythm are regular. First and second heart sounds normal. No murmurs, rubs or gallops. ABDOMEN: Bowel sounds decreased. EXTREMITITES: 2+ edema. Scrotal edema noted. Objective - Vital Signs Vital signs: Vital Signs Temp 98.7 F 10/01/18 08:00 Pulse 95 10/01/18 08:30 Resp 40 H 10/01/18 08:30 BP 105/61 10/01/18 08:30 Pulse Ox 95 10/01/18 08:30 Intake & Output 09/30/18 10/01/18 10/01/18 18:59 06:59 18:59 Intake Total 7794.509 4293.669 462.373 Output Total 2790 1040 60 Balance -968.120 751.669 402.373 Weight 164.8 kg Intake: IV 495 370 30 0.9 Normal saline @ 10ml/ 120 120 30 hr Anidulafungin 200 mg In 200 Sodium Chloride 0.9% 200 ml @ 84 mls/hr IVPB ONCE ONE Rx#:[id number] DAPTOmycin 900 mg In 50 Sodium Chloride 0.9% 50 ml @ 100 mls/hr IVPB Q48H [facility] Rx#:[id number] Fluconazole in NaCl,Iso- 100 Osm 200 mg In Saline 1 100ml.bag @ 100 mls/hr IVPB DAILY [facility] Rx#: [id number] Mvi, Adult No.4 with Vit 275 K 10 ml Trace (Conc-1Ml/ Dose) 1 ml Calcium Gluconate 1 gm Potassium Acetate 20 meq Sodium Acetate 20 meq Magnesium Sulfate gm 1 gm In Amino Acid 5%-D15w 1,000 ml @ 55 mls/hr IV .H14B10M [facility] Rx#:[id number] Intake, IV Titration 1056.880 846.669 249.373 Amount Anidulafungin 100 mg In 33.3 Sodium Chloride 0.9% 100 ml @ 84 mls/hr IVPB DAILY @1200 [facility] Rx#:[id number] Cisatracurium 200 mg In 168.861 Sodium Chloride 0.9% 180 ml @ 1 MCG/KG/MIN 9.03 mls/hr IV .Q22H9M [facility] Rx# :[id number] Dextrose 5% in Water 100 100 ml @ 618 mls/hr IV .Q10M ONE with Amiodarone 150 mg Rx#:[id number] Diltiazem 125 mg In 125 Sodium Chloride 0.9% 100 ml @ 5 MG/HR 5 mls/hr IV .Q24H [facility] Rx#:[id number] Heparin Sod,Pork in 0.45% 250 250 NaCl 25,000 unit In 0.45 % NaCl 1 250ml.bag @ 6.1 UNITS/KG/HR 9.998 mls/hr IV .Q24H [facility] Rx#: [id number] Insulin Regular 100 unit 91.556 13.669 19.342 In Sodium Chloride 0.9% 100 ml @ Per Protocol IV .Q0M [facility] Rx#:[id number] Norepinephrine 8 mg In 143.220 258.000 Sodium Chloride 0.9% 250 ml @ 0.05 MCG/KG/MIN 14. 35 mls/hr IV .L66U49H [facility] Rx#:[id number] Propofol 1,000 mg In 403.243 200 96.731 Empty Bag 1 bag @ Titrate IV .Q0M [facility] Rx#: [id number] Tube Feeding 210 485 153 Other 60 90 30 Output: Drainage 1250 700 Abdomen 1250 700 Urine 40 190 60 Stool 150 Hemodialysis 1500 Other: Voiding Method Indwelling Catheter Indwelling Catheter ABP, PAP, CO, CI - Last Documented Arterial Blood Pressure 112/52 - Labs CBC & Chem 7: 10/01/18 04:00 10/01/18 04:00 Labs: Abnormal Lab Results - Last 24 Hours (Table) 09/30/18 09/30/18 09/30/18 Range/Units 10:54 11:56 13:24 RBC (4.30-5.90) m/uL Hgb (13.0-17.5) gm/dL Hct (39.0-53.0) % MCV (80.0-100.0) fL MCH (25.0-35.0) pg MCHC (31.0-37.0) g/dL RDW (11.5-15.5) % Neutrophils # (Manual) (1.3-7.7) k/uL Lymphocytes # (Manual) (1.0-4.8) k/uL Nucleated RBCs (0-0) /100 WBC APTT (22.0-30.0) sec ABG pH (7.35-7.45) ABG pCO2 (35-45) mmHg ABG pO2 (83-108) mmHg Carbon Dioxide (22-30) mmol/L BUN (9-20) mg/dL Creatinine (0.66-1.25) mg/dL Glucose (74-99) mg/dL POC Glucose (mg/dL) 171 H 165 H 181 H (75-99) mg/dL Calcium (8.4-10.2) mg/dL Phosphorus (2.5-4.5) mg/dL 09/30/18 09/30/18 09/30/18 Range/Units 14:52 17:03 18:54 RBC (4.30-5.90) m/uL Hgb (13.0-17.5) gm/dL Hct (39.0-53.0) % MCV (80.0-100.0) fL MCH (25.0-35.0) pg MCHC (31.0-37.0) g/dL RDW (11.5-15.5) % Neutrophils # (Manual) (1.3-7.7) k/uL Lymphocytes # (Manual) (1.0-4.8) k/uL Nucleated RBCs (0-0) /100 WBC APTT (22.0-30.0) sec ABG pH (7.35-7.45) ABG pCO2 (35-45) mmHg ABG pO2 (83-108) mmHg Carbon Dioxide (22-30) mmol/L BUN (9-20) mg/dL Creatinine (0.66-1.25) mg/dL Glucose (74-99) mg/dL POC Glucose (mg/dL) 179 H 137 H 130 H (75-99) mg/dL Calcium (8.4-10.2) mg/dL Phosphorus (2.5-4.5) mg/dL 09/30/18 09/30/18 09/30/18 Range/Units 19:56 20:01 21:50 RBC (4.30-5.90) m/uL Hgb (13.0-17.5) gm/dL Hct (39.0-53.0) % MCV (80.0-100.0) fL MCH (25.0-35.0) pg MCHC (31.0-37.0) g/dL RDW (11.5-15.5) % Neutrophils # (Manual) (1.3-7.7) k/uL Lymphocytes # (Manual) (1.0-4.8) k/uL Nucleated RBCs (0-0) /100 WBC APTT 65.0 H (22.0-30.0) sec ABG pH (7.35-7.45) ABG pCO2 (35-45) mmHg ABG pO2 (83-108) mmHg Carbon Dioxide (22-30) mmol/L BUN (9-20) mg/dL Creatinine (0.66-1.25) mg/dL Glucose (74-99) mg/dL POC Glucose (mg/dL) 128 H 105 H (75-99) mg/dL Calcium (8.4-10.2) mg/dL Phosphorus (2.5-4.5) mg/dL 09/30/18 10/01/18 10/01/18 Range/Units 21:54 00:20 01:57 RBC (4.30-5.90) m/uL Hgb (13.0-17.5) gm/dL Hct (39.0-53.0) % MCV (80.0-100.0) fL MCH (25.0-35.0) pg MCHC (31.0-37.0) g/dL RDW (11.5-15.5) % Neutrophils # (Manual) (1.3-7.7) k/uL Lymphocytes # (Manual) (1.0-4.8) k/uL Nucleated RBCs (0-0) /100 WBC APTT (22.0-30.0) sec ABG pH (7.35-7.45) ABG pCO2 (35-45) mmHg ABG pO2 (83-108) mmHg Carbon Dioxide (22-30) mmol/L BUN (9-20) mg/dL Creatinine (0.66-1.25) mg/dL Glucose (74-99) mg/dL POC Glucose (mg/dL) 111 H 146 H 136 H (75-99) mg/dL Calcium (8.4-10.2) mg/dL Phosphorus (2.5-4.5) mg/dL 10/01/18 10/01/18 10/01/18 Range/Units 03:53 04:00 04:00 RBC 3.67 L (4.30-5.90) m/uL Hgb 7.1 L (13.0-17.5) gm/dL Hct 26.8 L (39.0-53.0) % MCV 73.0 L (80.0-100.0) fL MCH 19.2 L (25.0-35.0) pg MCHC 26.3 L (31.0-37.0) g/dL RDW 22.4 H (11.5-15.5) % Neutrophils # (Manual) 9.60 H (1.3-7.7) k/uL Lymphocytes # (Manual) 0.85 L (1.0-4.8) k/uL Nucleated RBCs 10 H (0-0) /100 WBC APTT (22.0-30.0) sec ABG pH 7.25 L (7.35-7.45) ABG pCO2 51 H (35-45) mmHg ABG pO2 63 L (83-108) mmHg Carbon Dioxide 21 L (22-30) mmol/L BUN 66 H (9-20) mg/dL Creatinine 3.55 H (0.66-1.25) mg/dL Glucose 143 H (74-99) mg/dL POC Glucose (mg/dL) (75-99) mg/dL Calcium 7.2 L (8.4-10.2) mg/dL Phosphorus 9.1 H* (2.5-4.5) mg/dL 10/01/18 10/01/18 10/01/18 Range/Units 04:00 06:22 06:49 RBC (4.30-5.90) m/uL Hgb (13.0-17.5) gm/dL Hct (39.0-53.0) % MCV (80.0-100.0) fL MCH (25.0-35.0) pg MCHC (31.0-37.0) g/dL RDW (11.5-15.5) % Neutrophils # (Manual) (1.3-7.7) k/uL Lymphocytes # (Manual) (1.0-4.8) k/uL Nucleated RBCs (0-0) /100 WBC APTT 68.7 H (22.0-30.0) sec ABG pH (7.35-7.45) ABG pCO2 (35-45) mmHg ABG pO2 (83-108) mmHg Carbon Dioxide (22-30) mmol/L BUN (9-20) mg/dL Creatinine (0.66-1.25) mg/dL Glucose (74-99) mg/dL POC Glucose (mg/dL) 175 H 147 H (75-99) mg/dL Calcium (8.4-10.2) mg/dL Phosphorus (2.5-4.5) mg/dL 10/01/18 10/01/18 Range/Units 08:03 09:23 RBC (4.30-5.90) m/uL Hgb (13.0-17.5) gm/dL Hct (39.0-53.0) % MCV (80.0-100.0) fL MCH (25.0-35.0) pg MCHC (31.0-37.0) g/dL RDW (11.5-15.5) % Neutrophils # (Manual) (1.3-7.7) k/uL Lymphocytes # (Manual) (1.0-4.8) k/uL Nucleated RBCs (0-0) /100 WBC APTT (22.0-30.0) sec ABG pH (7.35-7.45) ABG pCO2 (35-45) mmHg ABG pO2 (83-108) mmHg Carbon Dioxide (22-30) mmol/L BUN (9-20) mg/dL Creatinine (0.66-1.25) mg/dL Glucose (74-99) mg/dL POC Glucose (mg/dL) 197 H 166 H (75-99) mg/dL Calcium (8.4-10.2) mg/dL Phosphorus (2.5-4.5) mg/dL Microbiology - Last 24 Hours (Table) 09/29/18 15:45 Catheter Tip Culture - Preliminary Catheter Tip Coagulase Negative Staph 09/27/18 10:36 Blood Culture - Preliminary Blood No Growth after 72 hours 09/27/18 10:10 Gram Stain - Final Abdomen Wound Culture - Final Escherichia coli Mucor species Assessment and Plan Plan: Assessment: 1. Oliguric acute kidney injury secondary to ATN secondary to septic shock. Baseline creatinine is 1. Currently hemodialysis dependent. 2. Pneumoperitoneum secondary to perforated gastric ulcer status post exploratory laparotomy with lysis of adhesions and repair of gastric ulcer on September 16. 3. A. fib with RVR maintained on amiodarone and heparin drip. 4. Volume overload. 5. Septic shock secondary to peritonitis from perforated peptic ulcer maintained on IV antibiotics. 6. Hyperphosphatemia secondary to acute kidney injury. Maintained on PhosLo. 7. Metabolic acidosis secondary to acute kidney injury and IV fluids. Better. Maintained on oral sodium bicarbonate. 8. Hyperkalemia secondary to acute kidney injury and metabolic acidosis. Better. Plan: Maintain tube feeding. Maintain Lasix 80 mg IV twice daily. Second treatment of hemodialysis today. Continue to monitor renal function and urine output. Add Aranesp. Overall prognosis poor.
--- NOTE | 2018-10-01 11:05 | P.PN ---
Subjective Progress Note Date: 10/01/18 CHIEF COMPLAINT: abdominal pain HISTORY OF PRESENT ILLNESS: Patient s/p exploratory laparotomy, lysis of adhesions, decompression of colon and small bowel, transverse colectomy with takedown of splenic flexure, and repair of gastric ulcer with Dr. De Leon secondary to pneumoperitoneum, perforated gastric ulcer, ischemic colon at splenic flexure, and bowel obstruction. POD #15. Also, s/p trach 09/26/18. Unable to have PEG tube inserted at that time. The patient remains intubated on mechanical ventilation in the intensive care unit. No family present during ex amination. He remains sedated and on paralytics. FiO2 currently at 90% and 10 of PEEP. ABG this morning reveals pH 7.25. CO2 51. PO2 63. HCO3 22. He remains on vasopressor support. Levophed currently at 22 mics. patient underwent hemodialysis yesterday. 2 feedings infusing at 51 mL an hour. Patient is tolerating well. TPN has been discontinued. PHYSICAL EXAM: VITAL SIGNS: Reviewed GENERAL: Patient sedated on mechanical ventilation HEENT: Trach noted. NG tube with tube feeding infusing. No sclera icterus. Extraocular movements grossly intact. Moist buccal mucosa. Head is atraumatic, normocephalic. No nasal drainage. ABDOMEN: Abdomen nondistended, but obese. Wound vac to abdomen. CHAVEZ drain with serous drainage-connected to suction. Left-sided colostomy with stool present. Ostomy pink/red. NEUROLOGIC: Patient sedated on mechanical ventilation ASSESSMENT: 1. Abdominal pain 2. Pneumoperitoneum 3. S/P exploratory laparotomy, lysis of adhesions, decompression of colon and small bowel, transverse colectomy with takedown of splenic flexure, and repair of gastric ulcer secondary to pneumoperitoneum, perforated gastric ulcer, ische ness colon at splenic flexure, and bowel obstruction 4. Septic shock, present on admission secondary to above 5. History of atrial fibrillation, on long-term anticoagulation with Eliquis 6. History of bowel obstruction 7. History of laparoscopic Bruce fundoplication 8. History of hiatal hernia repair with mesh PLAN: 1. Continue ventilator management per Dr. Love. 2. Continue tube feedings 3. Continue wound vac 4. Continue antibiotics 5. He remains a full code at this time. Patients prognosis remains very poor. Nurse practitioner note has been reviewed by physician. Signing provider agrees with the documented findings, assessment, and plan of care. Objective - Vital Signs Vital signs: Vital Signs Temp 98.7 F 10/01/18 08:00 Pulse 107 H 10/01/18 10:59 Resp 40 H 10/01/18 10:30 BP 119/63 10/01/18 10:30 Pulse Ox 95 10/01/18 10:30 Intake & Output 09/30/18 10/01/18 10/01/18 18:59 06:59 18:59 Intake Total 8788.967 2811.669 562.447 Output Total 2790 1040 60 Balance -968.120 751.669 502.447 Weight 164.8 kg Intake: IV 495 370 40 0.9 Normal saline @ 10ml/ 120 120 40 hr Anidulafungin 200 mg In 200 Sodium Chloride 0.9% 200 ml @ 84 mls/hr IVPB ONCE ONE Rx#:[id number] DAPTOmycin 900 mg In 50 Sodium Chloride 0.9% 50 ml @ 100 mls/hr IVPB Q48H [facility] Rx#:[id number] Fluconazole in NaCl,Iso- 100 Osm 200 mg In Saline 1 100ml.bag @ 100 mls/hr IVPB DAILY [facility] Rx#: [id number] Mvi, Adult No.4 with Vit 275 K 10 ml Trace (Conc-1Ml/ Dose) 1 ml Calcium Gluconate 1 gm Potassium Acetate 20 meq Sodium Acetate 20 meq Magnesium Sulfate gm 1 gm In Amino Acid 5%-D15w 1,000 ml @ 55 mls/hr IV .[id number] [facility] Rx#:[id number] Intake, IV Titration 1056.880 846.669 288.447 Amount Amiodarone 360 mg In 33.3 Dextrose 5% in Water 200 ml @ 1 MG/MIN 33.333 mls/ hr IV .Q6H [facility] Rx#: [id number] Anidulafungin 100 mg In 33.3 Sodium Chloride 0.9% 100 ml @ 84 mls/hr IVPB DAILY @1200 [facility] Rx#:[id number] Cisatracurium 200 mg In 168.861 Sodium Chloride 0.9% 180 ml @ 1 MCG/KG/MIN 9.03 mls/hr IV .Q22H9M [facility] Rx# :[id number] Dextrose 5% in Water 100 100 ml @ 618 mls/hr IV .Q10M [facility] with Amiodarone 150 mg Rx#:[id number] Diltiazem 125 mg In 125 Sodium Chloride 0.9% 100 ml @ 5 MG/HR 5 mls/hr IV .Q24H [facility] Rx#:[id number] Heparin Sod,Pork in 0.45% 250 250 NaCl 25,000 unit In 0.45 % NaCl 1 250ml.bag @ 6.1 UNITS/KG/HR 9.998 mls/hr IV .Q24H [facility] Rx#: [id number] Insulin Regular 100 unit 91.556 13.669 25.116 In Sodium Chloride 0.9% 100 ml @ Per Protocol IV .Q0M [facility] Rx#:[id number] Norepinephrine 8 mg In 143.220 258.000 Sodium Chloride 0.9% 250 ml @ 0.05 MCG/KG/MIN 14. 35 mls/hr IV .[id number] [facility] Rx#:[id number] Propofol 1,000 mg In 403.243 200 96.731 Empty Bag 1 bag @ Titrate IV .Q0M [facility] Rx#: [id number] Tube Feeding 210 485 204 Other 60 90 30 Output: Drainage 1250 700 Abdomen 1250 700 Urine 40 190 60 Stool 150 Hemodialysis 1500 Other: Voiding Method Indwelling Catheter Indwelling Catheter Indwelling Catheter ABP, PAP, CO, CI - Last Documented Arterial Blood Pressure 112/52 - Labs CBC & Chem 7: 10/01/18 04:00 10/01/18 04:00 Labs: Abnormal Lab Results - Last 24 Hours (Table) 09/30/18 09/30/18 09/30/18 Range/Units 11:56 13:24 14:52 RBC (4.30-5.90) m/uL Hgb (13.0-17.5) gm/dL Hct (39.0-53.0) % MCV (80.0-100.0) fL MCH (25.0-35.0) pg MCHC (31.0-37.0) g/dL RDW (11.5-15.5) % Neutrophils # (Manual) (1.3-7.7) k/uL Lymphocytes # (Manual) (1.0-4.8) k/uL Nucleated RBCs (0-0) /100 WBC APTT (22.0-30.0) sec ABG pH (7.35-7.45) ABG pCO2 (35-45) mmHg ABG pO2 (83-108) mmHg Carbon Dioxide (22-30) mmol/L BUN (9-20) mg/dL Creatinine (0.66-1.25) mg/dL Glucose (74-99) mg/dL POC Glucose (mg/dL) 165 H 181 H 179 H (75-99) mg/dL Calcium (8.4-10.2) mg/dL Phosphorus (2.5-4.5) mg/dL 09/30/18 09/30/18 09/30/18 Range/Units 17:03 18:54 19:56 RBC (4.30-5.90) m/uL Hgb (13.0-17.5) gm/dL Hct (39.0-53.0) % MCV (80.0-100.0) fL MCH (25.0-35.0) pg MCHC (31.0-37.0) g/dL RDW (11.5-15.5) % Neutrophils # (Manual) (1.3-7.7) k/uL Lymphocytes # (Manual) (1.0-4.8) k/uL Nucleated RBCs (0-0) /100 WBC APTT (22.0-30.0) sec ABG pH (7.35-7.45) ABG pCO2 (35-45) mmHg ABG pO2 (83-108) mmHg Carbon Dioxide (22-30) mmol/L BUN (9-20) mg/dL Creatinine (0.66-1.25) mg/dL Glucose (74-99) mg/dL POC Glucose (mg/dL) 137 H 130 H 128 H (75-99) mg/dL Calcium (8.4-10.2) mg/dL Phosphorus (2.5-4.5) mg/dL 09/30/18 09/30/18 09/30/18 Range/Units 20:01 21:50 21:54 RBC (4.30-5.90) m/uL Hgb (13.0-17.5) gm/dL Hct (39.0-53.0) % MCV (80.0-100.0) fL MCH (25.0-35.0) pg MCHC (31.0-37.0) g/dL RDW (11.5-15.5) % Neutrophils # (Manual) (1.3-7.7) k/uL Lymphocytes # (Manual) (1.0-4.8) k/uL Nucleated RBCs (0-0) /100 WBC APTT 65.0 H (22.0-30.0) sec ABG pH (7.35-7.45) ABG pCO2 (35-45) mmHg ABG pO2 (83-108) mmHg Carbon Dioxide (22-30) mmol/L BUN (9-20) mg/dL Creatinine (0.66-1.25) mg/dL Glucose (74-99) mg/dL POC Glucose (mg/dL) 105 H 111 H (75-99) mg/dL Calcium (8.4-10.2) mg/dL Phosphorus (2.5-4.5) mg/dL 10/01/18 10/01/18 10/01/18 Range/Units 00:20 01:57 03:53 RBC (4.30-5.90) m/uL Hgb (13.0-17.5) gm/dL Hct (39.0-53.0) % MCV (80.0-100.0) fL MCH (25.0-35.0) pg MCHC (31.0-37.0) g/dL RDW (11.5-15.5) % Neutrophils # (Manual) (1.3-7.7) k/uL Lymphocytes # (Manual) (1.0-4.8) k/uL Nucleated RBCs (0-0) /100 WBC APTT (22.0-30.0) sec ABG pH 7.25 L (7.35-7.45) ABG pCO2 51 H (35-45) mmHg ABG pO2 63 L (83-108) mmHg Carbon Dioxide (22-30) mmol/L BUN (9-20) mg/dL Creatinine (0.66-1.25) mg/dL Glucose (74-99) mg/dL POC Glucose (mg/dL) 146 H 136 H (75-99) mg/dL Calcium (8.4-10.2) mg/dL Phosphorus (2.5-4.5) mg/dL 08/09/1210/01/18 10/01/18 Range/Units 04:00 04:00 04:00 RBC 3.67 L (4.30-5.90) m/uL Hgb 7.1 L (13.0-17.5) gm/dL Hct 26.8 L (39.0-53.0) % MCV 73.0 L (80.0-100.0) fL MCH 19.2 L (25.0-35.0) pg MCHC 26.3 L (31.0-37.0) g/dL RDW 22.4 H (11.5-15.5) % Neutrophils # (Manual) 9.60 H (1.3-7.7) k/uL Lymphocytes # (Manual) 0.85 L (1.0-4.8) k/uL Nucleated RBCs 10 H (0-0) /100 WBC APTT 68.7 H (22.0-30.0) sec ABG pH (7.35-7.45) ABG pCO2 (35-45) mmHg ABG pO2 (83-108) mmHg Carbon Dioxide 21 L (22-30) mmol/L BUN 66 H (9-20) mg/dL Creatinine 3.55 H (0.66-1.25) mg/dL Glucose 143 H (74-99) mg/dL POC Glucose (mg/dL) (75-99) mg/dL Calcium 7.2 L (8.4-10.2) mg/dL Phosphorus 9.1 H* (2.5-4.5) mg/dL 10/01/18 10/01/18 10/01/18 Range/Units 06:22 06:49 08:03 RBC (4.30-5.90) m/uL Hgb (13.0-17.5) gm/dL Hct (39.0-53.0) % MCV (80.0-100.0) fL MCH (25.0-35.0) pg MCHC (31.0-37.0) g/dL RDW (11.5-15.5) % Neutrophils # (Manual) (1.3-7.7) k/uL Lymphocytes # (Manual) (1.0-4.8) k/uL Nucleated RBCs (0-0) /100 WBC APTT (22.0-30.0) sec ABG pH (7.35-7.45) ABG pCO2 (35-45) mmHg ABG pO2 (83-108) mmHg Carbon Dioxide (22-30) mmol/L BUN (9-20) mg/dL Creatinine (0.66-1.25) mg/dL Glucose (74-99) mg/dL POC Glucose (mg/dL) 175 H 147 H 197 H (75-99) mg/dL Calcium (8.4-10.2) mg/dL Phosphorus (2.5-4.5) mg/dL 10/01/18 10/01/18 Range/Units 09:23 10:14 RBC (4.30-5.90) m/uL Hgb (13.0-17.5) gm/dL Hct (39.0-53.0) % MCV (80.0-100.0) fL MCH (25.0-35.0) pg MCHC (31.0-37.0) g/dL RDW (11.5-15.5) % Neutrophils # (Manual) (1.3-7.7) k/uL Lymphocytes # (Manual) (1.0-4.8) k/uL Nucleated RBCs (0-0) /100 WBC APTT (22.0-30.0) sec ABG pH (7.35-7.45) ABG pCO2 (35-45) mmHg ABG pO2 (83-108) mmHg Carbon Dioxide (22-30) mmol/L BUN (9-20) mg/dL Creatinine (0.66-1.25) mg/dL Glucose (74-99) mg/dL POC Glucose (mg/dL) 166 H 178 H (75-99) mg/dL Calcium (8.4-10.2) mg/dL Phosphorus (2.5-4.5) mg/dL Microbiology - Last 24 Hours (Table) 09/29/18 15:45 Catheter Tip Culture - Preliminary Catheter Tip Coagulase Negative Staph 09/27/18 10:36 Blood Culture - Preliminary Blood No Growth after 72 hours 09/27/18 10:10 Gram Stain - Final Abdomen Wound Culture - Final Escherichia coli Mucor species Assessment and Plan (1) Acute abdomen Current Visit: Yes Status: Acute Code(s): R10.0 - ACUTE ABDOMEN SNOMED Code(s): 5961011 (2) A-fib Current Visit: No Status: Acute Priority: High Code(s): I48.91 - UNSPECIFIED ATRIAL FIBRILLATION SNOMED Code(s): 46315079 (3) Abdominal pain Current Visit: No Status: Acute Code(s): R10.9 - UNSPECIFIED ABDOMINAL PAIN SNOMED Code(s): 50831567 (4) S/P exploratory laparotomy Current Visit: No Status: Acute Code(s): Z98.89 - OTHER SPECIFIED POSTPROCEDURAL STATES * DO NOT USE * SNOMED Code(s): 590123178
[2018-10-01 11:11] LABS: Glucose,Whole Blood 159 mg/dL (75-99)
[2018-10-01] MEDS: MEROPENEM 1 GM in SODIUM CHLORIDE 0.9% 100 ML IVPB SCH (11:34)
[2018-10-01 12:24] LABS: Glucose,Whole Blood 138 mg/dL (75-99)
--- NOTE | 2018-10-01 13:14 | PN ---
PROGRESS NOTE DATE OF SERVICE: 10/01/2018 REASON FOR FOLLOWUP: Abdominal sepsis. INTERVAL HISTORY: The patient is currently afebrile. The patient is still requiring pressor support to maintain his blood pressure, though slightly better than yesterday. The patient remains to be on 100% FiO2. Did get dialysis yesterday with removal of 1.5 L of fluid per the RN, is scheduled for dialysis again today. The patient is currently sedated on the vent and unable to provide any history. No family member at the bedside. PHYSICAL EXAMINATION: On examination, blood pressure 107/66, pulse of 95, temperature 98.7. He is 94% on 100% FiO2. General description is an elderly male lying in bed in no distress. RESPIRATORY SYSTEM: Unlabored breathing, clear to auscultation anteriorly. HEART: S1, S2. Irregular rhythm. ABDOMEN: Soft. The midline incision wound VAC was removed personally. Wound base looks clean with minimal slough tissue. There is no black eschar. No surrounding redness or any foul-smelling drainage. EXTREMITIES: With 1+ edema of the feet. LABS: Hemoglobin 7.1, white count normal at 10.6. BUN of 66, creatinine 3.55. Blood culture 09/27 has been negative. DIAGNOSTIC IMPRESSION AND PLAN: 1. Patient admitted to the hospital with abdominal sepsis. This patient did have perforated peptic ulcer, also noticed to have ischemic splenic flexure, status post extensive surgery and a diverting colostomy. Subsequently the patient did have a tracheostomy as he was failed to be weaned off the vent and did have another episode of fever with concern for possible line-related which has been discontinued. Catheter tip is showing Coagulase-negative staphylococcus though the blood cultures on 09/27 has been negative. The patient is currently covered with meropenem and daptomycin to continue along with Eraxis. We will monitor clinical course closely. 2. Patient who did have positive cultures from an abdominal wound, which is the midline that was done on 09/27 which did show an Escherichia coli and Mucor species. The patient's abdominal wound currently with no signs of cellulitis. I do not see any black eschar and clinically think Mucor is more of a colonizer or a contaminant rather than true infection as the patient's fever has resolved and his white count has normalized. Treating this pathogen would require use of nephrotoxic medication such as amphoterin B in this patient also having renal failure at this point and will worsen his condition which I think is unnecessary at this point. We will continue to monitor him closely. RN will take pictures of his wound before replacing the wound VAC and will monitor him closely. Overall prognosis remains to be guarded. ROSEY / SETH: [id number] /
[2018-10-01 13:44] LABS: Glucose,Whole Blood 173 mg/dL (75-99)
[2018-10-01] MEDS: CISATRACURIUM 200 MG in SODIUM CHLORIDE 0.9% 180 ML IV SCH (13:51)
--- NOTE | 2018-10-01 14:16 | P.PN ---
Subjective Progress Note Date: 10/01/18 This is a 72-year-old male patient of Dr. Cevallos with past history of chronic hypoxic respiratory failure on home O2 obstructive sleep apnea on CPAP, paroxysmal atrial fibrillation, chronic diastolic heart failure, severe COPD, morbid obesity with BMI of 47, hypertension hypertensive cardiovascular disease, mild intermittent asthma, hyperlipidemia, gastroesophageal reflux disease, diabetes mellitus type 2, cellulitis of the abdominal wall. Patient was recently hospitalized and discharged home on September 12 and treated for acute diastolic heart failure, atrial flutter/atrial fibrillation with rapid ventricular response status post MIKE which found a small atrial appendage thrombus. The patient was stabilized and discharged home in stable condition and had been started on amiodarone, eliquis, Aldactone, prednisone and Augmentin. Patient presented to [facility] emergency center for evaluation. He was afebrile, heart rate 130s, blood pressure 119/79, pulse ox 95%. White count was 5.9, hemoglobin 10.6, platelet count 4-72. Sodium 133, potassium 5.4, chloride 96, CO2 20, BUN 36 and creatinine 1.6, blood sugar 178. CAT scan of the abdomen and pelvis revealed pneumoperitoneum. Bowel distention. Bowel ischemia not excluded. No clear obstruction. Findings may be due to ileus. Patient was provided IV fluids, pain medication and Zosyn patient was seen by Dr. De Leon in the emergency center and taken to the OR found to have a perforated gastric ulcer, ischemic colon at the site of splenic flexure of the bowel obstruction. Patient underwent exploratory laparotomy, lysis of adhesions, decompression of the colon and small bowel, transverse colectomy and takedown of splenic flexure and repair of a gastric ulcer. Patient was then transferred to the intensive care unit and followed by Dr. Red. He is status post greater than 8 L of IV fluid and on norepinephrine and subsequent started on vasopressin. Urine output has been marginal patient remains intubated and on mechanical ventilation with tidal volume 550, FiO2 of 50% and PEEP of 5. The patient is on sedation. 09/18: Patient remains in intensive care unit intubated and on mechanical vent ilation with tidal volume 550, FiO2 50, PEEP 5. NG tube with black drainage. He is on 22 mics of levo fed and 0.03 vasopressin. Patient was started on amiodarone due to continued A. fib with RVR. Heart rate is in the 140s, blood pressure systolic 99. A.m. lab work white count 9.6, hemoglobin 8.5, platelet count 368. Sodium 136, potassium 4.9, chloride 108, CO2 18, BUN 39 creatinine 1.81. Blood sugars are running between 141 and 161. Urine culture is in progress and blood culture is no growth at [address] Benedict is recommended continuing Zosyn and Diflucan. Son is at bedside and all questions have been answered. 09/19: Patient remains in the intensive care unit intubated and on mechanical ventilation with tidal volume 550, FiO2 40 and PEEP of 5. Norepinephrine is now down to 5 mics and minimal on vasopressin. Urine output has been more than adequate. He has been afebrile. He is continued on sedation with propofol. A sedation holiday was attempted today but patient became tachypneic. Patient is back on sedation with plan for tomorrow for sedation holiday tomorrow. Patient has had output from colostomy and passing gas and colostomy. Decreased output from NG tube and from CHAVEZ drain. WBC 8.6, hemoglobin 7.8. He has been afebrile, heart rate 99, blood pressure 90/63. TPN has been started. Amiodarone drip to be discontinued. air sampling and monitoring is currently A. fib with controlled rate. 09/20 Patient remains in ICU, currently nothing by mouth, CHAVEZ drain has drained ov er 2 L in 24 hours, patient has been off pressors, urine output is normal, patient is still on TPN, patient still has abdominal discomfort, otherwise no chest pain no shortness of breath, no palpitations. Hemoglobin currently at 7.4 from an admitting hemoglobin of 9.4, iron studies to be done, agent has initial myelocytes on admission, creatinine 1.02 from 1.2, surgical incision is dry, there is stool output in the colostomy bag, patient remains on mechanical ventilator, unchanged and settings. Followed closely by pulmonary medicine, Cardizem drip was initiated for atrial fibrillation. Attempt to be made with weaning ventilatory support in a.m. : Postop day #5, he was given sedation holiday today, and was able to follow verbal commands, unable to wean today secondary to parameters from Dr. Red, patient went back to assist control mode of ventilation, Lasix was given 401 dose for CHF, pulmonary edema, blood pressure remains stable, negative balance of 1.3 L, urine output is good, has decreased output on the CHAVEZ drain, small amount of mucus stools today, still diminished bowel sounds currently nothing by mouth, general surgery following closely, 09/22: Patient remains intubated and on mechanical ventilation with tidal volume 550, FiO2 40, PEEP 5. Patient failed weaning attempt this morning. Patient is off vasopressors. He has been afebrile, heart rate 108, blood pressure 116/57. Repeat lab work reveals white count of 8.5, hemoglobin 7.8, platelet count 372. Sodium is 150, potassium 3.9, chloride 122, CO2 20, BUN 29 creatinine 0.92. Blood sugars run between 160 [birth year]1976. Phosphorus 3.4. Magnesium 2.4. Repeat chest x-ray this morning reveals persistent bilateral infiltrate and pleural effusion correlate for heart failure. Patient is maintained on Cardizem drip started over the weekend by water pipe installer. The patient is also continued on TPN. No plan for tube feedings until extubated. Patient does have a liquid stool in ostomy. Urine output has been adequate. CHAVEZ drain remains in place. Consult for cardiology added for atrial fibrillation. 09/23: Repeat chest x-ray shows diffuse pleuroparenchymal changes are stable correlate for diffuse pneumonia versus heart failure. Chest ultrasound shows small left pleural effusion. Cardiology is following for atrial fibrillation. Patient is maintained on IV Cardizem and heparin. Blood pressure is currently controlled. Heart rate is also controlled. The temperature max 100.7, heart rate 98, blood pressure 126/83, pulse ox 93%. We have ordered pancultures including blood culture, sputum, urine, CHAVEZ drain cultures to be obtained. Patient is continued on sedation, intubation and mechanical ventilation. Tidal volume FiO2 550, FiO2 40, PEEP of 5. Repeat lab work reveals white count of 9.4, hemoglobin 7.6, count 372. Sodium 151, potassium 3.4, chloride 119, CO2 24, creatinine 0.94, BUN 27. Blood sugars running between 170 and 182. General surgery planning for wound VAC to the abdominal incision. Patient is now on IV Lasix [address] Mendoza is concern for evolving ARDS. Anticipate probable trach and PEG tube placement by the end of the week. 09/24: The patient remains intubated and on mechanical ventilation with tidal volume 550, FiO2 50%, PEEP 5. Patient remains on sedation. No low-grade fevers this morning. air sampling and monitoring is A. fib with controlled rate in the 80s and 90s. Patient remains on Cardizem drip and heparin drip. Blood pressure is currently stable. Lasix is at 40 mg IV every 12 hours with noted decrease edema. Patient has good urine output, positive stool output. Patient has been started on Solu-Cortef. 09/25: Patient remains intubated and on mechanical ventilation with tidal volume 550, FiO2 40, PEEP 5. He is on norepinephrine. Patient is scheduled for trach and PEG tube tomorrow. NG tube is in place to suction. He still noted to have generalized anasarca and now hydrocele on the scrotum. Patient has been afebrile, heart rate 88, blood pressure 117/68. Repeat lab work reveals hemoglobin 7.5, WBC 9.4, hemoglobin 323. Sodium 146, potassium 3.6, chloride 114, CO2 24, BUN 26, creatinine 0.82. Blood sugars in the low 200s. Patient will be started on Levemir 6 units daily. 09/26: Patient remains in the intensive care unit, intubated and on mechanical ventilation with a 5 O2 of 40% and PEEP of 5. He is scheduled for PEG tube and trach placement today. Chest x-ray reveals diffuse pleuroparenchymal changes are stable and correlate for pneumonia versus heart failure. Patient remains on Cardizem and heparin drip for atrial fibrillation, controlled rate. The patient also continued on full, soft and Zosyn. Culture from CHAVEZ drain is positive for Staphylococcus epidermidis and gram-negative bacilli. Lasix currently at 40 mg IV every 8 hours and Solu-Cortef 50 mg IV every 12 hours. A blood sugars remain elevated and Levemir will be increased to 10 units. CHAVEZ drain was scant amount of drainage. Gastric tube remains in place. Wound VAC for abdominal wound. 09/27: Patient had trach placed yesterday but PEG tube was unsuccessful. He remains on mechanical ventilation with tidal volume 550, FiO2 45 and PEEP of 5. NG tube is in place. Patient is on TPN. He remains on Cardizem drip and to resume heparin drip later today. He is currently off sedation. Temperature max 100.4. Heart rate 150 with atrial fibrillation, respirations 26, blood pressure 95/61, pulse ox 95%. WBC 12.8, hemoglobin 8.2, platelet count 292. Sodium 142, potassium 4.2, chloride 108, CO2 23, BUN 20 creatinine 1.04. Blood sugars are r unning between 184 and 233. Magnesium 2.1 phosphorus 4.8. Today, cardiology has started the patient on amiodarone drip for rate control. Levemir will be increased 12 units daily. Repeat chest x-ray reveals no significant interval change. 09/28: Yesterday, patient became tachypneic and desaturated require going back on levo fed which is currently at 30 mics. Patient did not have any urine output or minimal output. He was started on amiodarone yesterday morning and heart rate decreased around 2 PM. Patient has received a total of 2500, rales fluid bolus. Lasix 1 dose was given last evening to 40 mg and he scheduled for 80 mg this morning. We will plan to start him on 80 mg every 12 hours. Patient was also started on Nimbex. CAT scan of the abdomen was done which revealed interval development of moderate bilateral pleural effusions with associated atelectasis or consolidation. Cardiomegaly, hepatomegaly. Ascites within the abdomen without definite abscess formation. Stable wedge compression fracture of T12. The patient's nurse relates that they did see a small amount of pus at the wound site and culture was obtained which is in progress. Patient is continued on amiodarone, Cardizem drip and heparin drip for atrial fibrillation. He has continued also on TPN. Temperature max in past 24 hours 100.4. Heart rate is currently 88, blood pressure 115/72. WBC 15.2, hemoglobin 7.4, platelet count 300. Sodium 139, potassium 5.4, chloride 108, BUN 42 and creatinine 1.96. Blood sugars in the 200s. Levemir will be increased to 15 units. 09/29 patient examined bedside continues to have significantly elevated creatinine with the improvement worsening of creatinine from 1.96-2.73 today. Patient's oxygen needs have worsened since yesterday with increase in FiO2 70%. Arterial blood class done today suggest a pH of 7.23 pO2 of 47 pCO2 of 40. Vitals are stable currently patient is off Levophed since 5 this morning urine output is still low at 10 mL per hour. Continue TPN at 55 mL per hour for. Patient's glucose this morning is 266. Will switch patient's insulin to insulin drip. Continue Lasix 80 IV twice a day. Nephrology is consulted and recommends sodium bicarb tablet along with PhosLo 09/30 patient remains intubated with no improvement in oxygenation. Patient desaturated into the low 80% on 9200% of FiO2. Renal replacement therapy started today per patient's potassium continued to rise with a potassium of 5.6 with increasing creatinine of 3.68. Patient continues on Lasix 80 twice a day with no improvement in urine output. FiO2 increased to 100% with a PEEP of 10. Patient's prognosis is poor. I spoke with multiple family members including and brother and updated on patient's prognosis. Patient is currently on 30 mics of Levophed . Urine output 5 mL per hour. 10/01 patient remains intubated and sedated. Continues to be in atrial fibrillation with elevated 110-120. Cardizem was discontinued by cardiology and patient was placed on amiodarone drip. Vitals suggest a heart rate of 120 and respiratory rate of 40 with pressure 116/65. Blood work suggest a hemoglobin of 7.1 with platelet 320 ABG suggest a pH of 7.25 pCO2 51 pO2 63 on FiO2 of 100% and PEEP of 10. We will plan for bronchoscopy. Creatinine slightly improved since yesterday on dialysis is phosphorus still elevated on PhosLo. Hepatitis panel was negative patient receiving another dialysis session today. Slight improvement in urine output to 10-15 mL per hour. Patient continues to be on Nimbex and propofol patient is a poor prognosis Objective - Vital Signs Vital signs: Vital Signs Temp 98.1 F 10/01/18 12:00 Pulse 112 H 10/01/18 12:30 Resp 40 H 10/01/18 12:30 BP 114/66 10/01/18 12:30 Pulse Ox 96 10/01/18 12:30 Intake & Output 09/30/18 10/01/18 10/01/18 18:59 06:59 18:59 Intake Total 8493.798 0381.669 962.298 Output Total 2790 1040 85 Balance -968.120 751.669 877.298 Weight 164.8 kg Intake: IV 495 370 160 0.9 Normal saline @ 10ml/ 120 120 60 hr Anidulafungin 200 mg In 200 Sodium Chloride 0.9% 200 ml @ 84 mls/hr IVPB ONCE [facility] Rx#:[id number] DAPTOmycin 900 mg In 50 Sodium Chloride 0.9% 50 ml @ 100 mls/hr IVPB Q48H [facility] Rx#:[id number] Fluconazole in NaCl,Iso- 100 Osm 200 mg In Saline 1 100ml.bag @ 100 mls/hr IVPB DAILY [facility] Rx#: [id number] Meropenem 1 gm In Sodium 100 Chloride 0.9% 100 ml @ 200 mls/hr IVPB Q12H [facility] Rx#:[id number] Mvi, Adult No.4 with Vit 275 K 10 ml Trace (Conc-1Ml/ Dose) 1 ml Calcium Gluconate 1 gm Potassium Acetate 20 meq Sodium Acetate 20 meq Magnesium Sulfate gm 1 gm In Amino Acid 5%-D15w 1,000 ml @ 55 mls/hr IV .[id number] [facility] Rx#:[id number] Intake, IV Titration 1056.880 846.669 466.298 Amount Amiodarone 360 mg In 99.9 Dextrose 5% in Water 200 ml @ 1 MG/MIN 33.333 mls/ hr IV .Q6H [facility] Rx#: [id number] Anidulafungin 100 mg In 33.3 Sodium Chloride 0.9% 100 ml @ 84 mls/hr IVPB DAILY @1200 [facility] Rx#:[id number] Cisatracurium 200 mg In 168.861 Sodium Chloride 0.9% 180 ml @ 1 MCG/KG/MIN 9.03 mls/hr IV .Q22H9M [facility] Rx# :[id number] Dextrose 5% in Water 100 100 ml @ 618 mls/hr IV .Q10M [facility] with Amiodarone 150 mg Rx#:[id number] Diltiazem 125 mg In 125 Sodium Chloride 0.9% 100 ml @ 5 MG/HR 5 mls/hr IV .Q24H [facility] Rx#:[id number] Heparin Sod,Pork in 0.45% 250 250 NaCl 25,000 unit In 0.45 % NaCl 1 250ml.bag @ 6.1 UNITS/KG/HR 9.998 mls/hr IV .Q24H [facility] Rx#: [id number] Insulin Regular 100 unit 91.556 13.669 38.987 In Sodium Chloride 0.9% 100 ml @ Per Protocol IV .Q0M [facility] Rx#:[id number] Norepinephrine 8 mg In 143.220 258.000 Sodium Chloride 0.9% 250 ml @ 0.05 MCG/KG/MIN 14. 35 mls/hr IV .[id number] [facility] Rx#:[id number] Propofol 1,000 mg In 403.243 200 194.111 Empty Bag 1 bag @ Titrate IV .Q0M [facility] Rx#: [id number] Tube Feeding 210 485 306 Other 60 90 30 Output: Drainage 1250 700 Abdomen 1250 700 Urine 40 190 85 Stool 150 Hemodialysis 1500 Other: Voiding Method Indwelling Catheter Indwelling Catheter Indwelling Catheter ABP, PAP, CO, CI - Last Documented Arterial Blood Pressure 112/52 - Exam Gen: This is a 72-year-old morbidly obese male. He is in the intensive care unit. Patient is intubated and on mechanical ventilation. Patient appears to be comfortable. HEENT: Head is atraumatic, normocephalic. Pupils equal, round. Sclerae is anicteric. NG tube in place to suction. Trach in place connected to mechanical ventilation. NECK: Supple. No JVD. No lymphadenopathy. No thyromegaly. LUNGS: Diminished bilaterally with scattered rhonchi. Patient appears comfortable. HEART: Irregular rate and rhythm. Systolic murmur. air sampling and monitoring atrial fibrillation with RVR. ABDOMEN: Soft. Large. Normal bowel sounds are present. Colostomy in the left upper quadrant with stool output. There is a large mid abdominal incision with wound VAC. CHAVEZ drain. Foster catheter draining clear urine. EXTREMITIES: anasarca and 1+ bilateral pedal edema. Midline to right upper arm. Dialysis catheter in the right groin NEUROLOGICAL: Patient is sedated. - Labs CBC & Chem 7: 10/01/18 04:00 10/01/18 04:00 Labs: Abnormal Lab Results - Last 24 Hours (Table) 09/30/18 09/30/18 09/30/18 Range/Units 14:52 17:03 18:54 RBC (4.30-5.90) m/uL Hgb (13.0-17.5) gm/dL Hct (39.0-53.0) % MCV (80.0-100.0) fL MCH (25.0-35.0) pg MCHC (31.0-37.0) g/dL RDW (11.5-15.5) % Neutrophils # (Manual) (1.3-7.7) k/uL Lymphocytes # (Manual) (1.0-4.8) k/uL Nucleated RBCs (0-0) /100 WBC APTT (22.0-30.0) sec ABG pH (7.35-7.45) ABG pCO2 (35-45) mmHg ABG pO2 (83-108) mmHg Carbon Dioxide (22-30) mmol/L BUN (9-20) mg/dL Creatinine (0.66-1.25) mg/dL Glucose (74-99) mg/dL POC Glucose (mg/dL) 179 H 137 H 130 H (75-99) mg/dL Calcium (8.4-10.2) mg/dL Phosphorus (2.5-4.5) mg/dL 09/30/18 09/30/18 09/30/18 Range/Units 19:56 20:01 21:50 RBC (4.30-5.90) m/uL Hgb (13.0-17.5) gm/dL Hct (39.0-53.0) % MCV (80.0-100.0) fL MCH (25.0-35.0) pg MCHC (31.0-37.0) g/dL RDW (11.5-15.5) % Neutrophils # (Manual) (1.3-7.7) k/uL Lymphocytes # (Manual) (1.0-4.8) k/uL Nucleated RBCs (0-0) /100 WBC APTT 65.0 H (22.0-30.0) sec ABG pH (7.35-7.45) ABG pCO2 (35-45) mmHg ABG pO2 (83-108) mmHg Carbon Dioxide (22-30) mmol/L BUN (9-20) mg/dL Creatinine (0.66-1.25) mg/dL Glucose (74-99) mg/dL POC Glucose (mg/dL) 128 H 105 H (75-99) mg/dL Calcium (8.4-10.2) mg/dL Phosphorus (2.5-4.5) mg/dL 09/30/18 10/01/18 10/01/18 Range/Units 21:54 00:20 01:57 RBC (4.30-5.90) m/uL Hgb (13.0-17.5) gm/dL Hct (39.0-53.0) % MCV (80.0-100.0) fL MCH (25.0-35.0) pg MCHC (31.0-37.0) g/dL RDW (11.5-15.5) % Neutrophils # (Manual) (1.3-7.7) k/uL Lymphocytes # (Manual) (1.0-4.8) k/uL Nucleated RBCs (0-0) /100 WBC APTT (22.0-30.0) sec ABG pH (7.35-7.45) ABG pCO2 (35-45) mmHg ABG pO2 (83-108) mmHg Carbon Dioxide (22-30) mmol/L BUN (9-20) mg/dL Creatinine (0.66-1.25) mg/dL Glucose (74-99) mg/dL POC Glucose (mg/dL) 111 H 146 H 136 H (75-99) mg/dL Calcium (8.4-10.2) mg/dL Phosphorus (2.5-4.5) mg/dL 10/01/18 10/01/18 10/01/18 Range/Units 03:53 04:00 04:00 RBC 3.67 L (4.30-5.90) m/uL Hgb 7.1 L (13.0-17.5) gm/dL Hct 26.8 L (39.0-53.0) % MCV 73.0 L (80.0-100.0) fL MCH 19.2 L (25.0-35.0) pg MCHC 26.3 L (31.0-37.0) g/dL RDW 22.4 H (11.5-15.5) % Neutrophils # (Manual) 9.60 H (1.3-7.7) k/uL Lymphocytes # (Manual) 0.85 L (1.0-4.8) k/uL Nucleated RBCs 10 H (0-0) /100 WBC APTT (22.0-30.0) sec ABG pH 7.25 L (7.35-7.45) ABG pCO2 51 H (35-45) mmHg ABG pO2 63 L (83-108) mmHg Carbon Dioxide 21 L (22-30) mmol/L BUN 66 H (9-20) mg/dL Creatinine 3.55 H (0.66-1.25) mg/dL Glucose 143 H (74-99) mg/dL POC Glucose (mg/dL) (75-99) mg/dL Calcium 7.2 L (8.4-10.2) mg/dL Phosphorus 9.1 H* (2.5-4.5) mg/dL 10/01/18 10/01/18 10/01/18 Range/Units 04:00 06:22 06:49 RBC (4.30-5.90) m/uL Hgb (13.0-17.5) gm/dL Hct (39.0-53.0) % MCV (80.0-100.0) fL MCH (25.0-35.0) pg MCHC (31.0-37.0) g/dL RDW (11.5-15.5) % Neutrophils # (Manual) (1.3-7.7) k/uL Lymphocytes # (Manual) (1.0-4.8) k/uL Nucleated RBCs (0-0) /100 WBC APTT 68.7 H (22.0-30.0) sec ABG pH (7.35-7.45) ABG pCO2 (35-45) mmHg ABG pO2 (83-108) mmHg Carbon Dioxide (22-30) mmol/L BUN (9-20) mg/dL Creatinine (0.66-1.25) mg/dL Glucose (74-99) mg/dL POC Glucose (mg/dL) 175 H 147 H (75-99) mg/dL Calcium (8.4-10.2) mg/dL Phosphorus (2.5-4.5) mg/dL 10/01/18 10/01/18 10/01/18 Range/Units 08:03 09:23 10:14 RBC (4.30-5.90) m/uL Hgb (13.0-17.5) gm/dL Hct (39.0-53.0) % MCV (80.0-100.0) fL MCH (25.0-35.0) pg MCHC (31.0-37.0) g/dL RDW (11.5-15.5) % Neutrophils # (Manual) (1.3-7.7) k/uL Lymphocytes # (Manual) (1.0-4.8) k/uL Nucleated RBCs (0-0) /100 WBC APTT (22.0-30.0) sec ABG pH (7.35-7.45) ABG pCO2 (35-45) mmHg ABG pO2 (83-108) mmHg Carbon Dioxide (22-30) mmol/L BUN (9-20) mg/dL Creatinine (0.66-1.25) mg/dL Glucose (74-99) mg/dL POC Glucose (mg/dL) 197 H 166 H 178 H (75-99) mg/dL Calcium (8.4-10.2) mg/dL Phosphorus (2.5-4.5) mg/dL 10/01/18 10/01/18 Range/Units 11:10 12:23 RBC (4.30-5.90) m/uL Hgb (13.0-17.5) gm/dL Hct (39.0-53.0) % MCV (80.0-100.0) fL MCH (25.0-35.0) pg MCHC (31.0-37.0) g/dL RDW (11.5-15.5) % Neutrophils # (Manual) (1.3-7.7) k/uL Lymphocytes # (Manual) (1.0-4.8) k/uL Nucleated RBCs (0-0) /100 WBC APTT (22.0-30.0) sec ABG pH (7.35-7.45) ABG pCO2 (35-45) mmHg ABG pO2 (83-108) mmHg Carbon Dioxide (22-30) mmol/L BUN (9-20) mg/dL Creatinine (0.66-1.25) mg/dL Glucose (74-99) mg/dL POC Glucose (mg/dL) 159 H 138 H (75-99) mg/dL Calcium (8.4-10.2) mg/dL Phosphorus (2.5-4.5) mg/dL Microbiology - Last 24 Hours (Table) 09/27/18 10:36 Blood Culture - Preliminary Blood No Growth after 96 hours 09/29/18 15:45 Catheter Tip Culture - Preliminary Catheter Tip Coagulase Negative Staph 09/27/18 10:10 Gram Stain - Final Abdomen Wound Culture - Final Escherichia coli Mucor species Assessment and Plan Plan: 1. Abdominal pain secondary to perforated gastric ulcer, ischemic colon at the splenic flexure with bowel obstruction status post exploratory laparotomy, lysis of adhesions, repair of gastric ulcer, transverse colectomy and takedown of the splenic flexure. Continue fluconazole, on daptomycin and meropenem. Dr. Benedict consult appreciated. The patient has been seen by ostomy nurse. Trach performed on saturday, PEG couldnot be performed. 2. Septic shock status post IV fluid resuscitation on vasopressors. Patient is on Nimbex, pressure continues to drop on pressors 3. Acute on chronic hypoxic respiratory failure secondary to above. Patient is currently intubated and on mechanical ventilation. Patient is managed by Dr. Mendoza. Dr. Mendoza concern for ARDS. Trach placement on 09/26 4. Acute kidney injury secondary to shock and ATN. Continue to monitor closely continue to worsen. Initiated on dialysis today 5. Lactic acidosis. 6. Paroxysmal atrial fibrillation with A. fib RVR. Eliquis is on hold. Patient is status post Kcentra for reversal of eliquis. Continue Cardizem drip and Amiodarone dripdiscontinued Continue heparin drip. Rate is currently controlled 7. Acute and chronic diastolic heart failure and generalized anasarca. IV Lasix 80 mg iv bi d. Patient is status post albumin. 8. Severe COPD, stable. 9. Obstructive sleep apnea with CPAP, noncompliance. 10. Mild intermittent asthma, stable. 11. Hyperlipidemia. 12. Gastroesophageal reflux disease and GI prophylaxis. Continue Protonix 40 mg IV daily. 13. Diabetes mellitus type 2 uncontrolled with hyperglycemia secondary to steroids. switched to insulin drip 14. Severe protein calorie malnutrition due to nothing by mouth status. Patient on TPN. 15. Left atrial appendage thrombus found on MIKE during last admission. on heparin drip 16. Hypernatremia and hyperchloremia. 17. Adrenal insufficiency secondary to illness. Patient has been started on hydrocortef 50 mg IV every 12 hours. Prognosis poor. Discharge plan: patient's prognosis is poor family updated and would like to continue aggressive care.
[2018-10-01] MEDS: AMIODARONE 300 MG in DEXTROSE 5% IN WATER 250 ML IV SCH ×2 (14:56)
[2018-10-01] MEDS: ANIDULAFUNGIN 100 MG in SODIUM CHLORIDE 0.9% 100 ML IVPB SCH (15:04)
[2018-10-01 15:06] LABS: Glucose,Whole Blood 179 mg/dL (75-99)
[2018-10-01 16:10] LABS: Glucose,Whole Blood 161 mg/dL (75-99)
[2018-10-01 17:11] LABS: Glucose,Whole Blood 153 mg/dL (75-99)
[2018-10-01 18:11] LABS: Glucose,Whole Blood 150 mg/dL (75-99)
[2018-10-01 20:34] LABS: Glucose,Whole Blood 160 mg/dL (75-99)
[2018-10-01 22:35] LABS: Glucose,Whole Blood 166 mg/dL (75-99)
[2018-10-02] MEDS: HYDROmorphone 1 MG/ML 1 ML SYRINGE IVP SCH ×7 (00:01→23:46)
[2018-10-02] MEDS: MEROPENEM 1 GM in SODIUM CHLORIDE 0.9% 100 ML IVPB SCH ×2 (00:01→11:49)
[2018-10-02 00:06] LABS: Glucose,Whole Blood 172 mg/dL (75-99)
[2018-10-02] MEDS: CISATRACURIUM 200 MG in SODIUM CHLORIDE 0.9% 180 ML IV SCH ×3 (00:20→21:21)
[2018-10-02] MEDS: AMIODARONE 300 MG in DEXTROSE 5% IN WATER 250 ML IV SCH ×8 (00:41→19:10)
[2018-10-02] MEDS: NOREPINEPHRINE 8 MG in SODIUM CHLORIDE 0.9% 250 ML IV SCH ×3 (00:43→21:47)
[2018-10-02] MEDS: PROPOFOL 1,000 MG in EMPTY BAG 1 BAG IV SCH ×9 (01:59→22:26)
[2018-10-02 02:21] LABS: Glucose,Whole Blood 155 mg/dL (75-99)
[2018-10-02] MEDS: IPRATROPIUM-ALBUTEROL 3 ML NEB INHALATION SCH ×6 (03:11→23:17)
[2018-10-02 03:54] LABS: ABG Base Excess -5.2 mmol/L; ABG HCO3 23 mmol/L (21-25); ABG PCO2 64 mmHg (35-45); ABG PO2 97 mmHg (83-108); ABG TCO2 25 mmol/L (19-24); Allen Test Performed? Yes
[2018-10-02 04:00] LABS: ABG PH 7.17 (7.35-7.45)
[2018-10-02 04:13] LABS: Glucose,Whole Blood 175 mg/dL (75-99)
[2018-10-02 05:42] LABS: Anisocytosis Moderate; HCT 28.7 % (39.0-53.0); HGB 7.4 gm/dL (13.0-17.5); Hypochromasia Marked; MCH 18.9 pg (25.0-35.0); MCHC 25.8 g/dL (31.0-37.0); MCV 73.3 fL (80.0-100.0); Mean Platelet Volume 6.3; Microcytosis Marked; Platelet Count 323 k/uL (150-450); Poikilocytosis Moderate; RBC 3.91 m/uL (4.30-5.90); RDW 22.1 % (11.5-15.5)
[2018-10-02 05:46] LABS: Calcium 7.7 mg/dL (8.4-10.2); Magnesium 2.4 mg/dL (1.6-2.3); Potassium 5.7 mmol/L (3.5-5.1)
[2018-10-02 05:53] LABS: Phosphorus 12.5 mg/dL (2.5-4.5)
[2018-10-02 06:08] LABS: Band Neutrophils % 5 %; Eosinophils # (M) 0.09 k/uL (0-0.7); Lymphocytes # (M) 0.66 k/uL (1.0-4.8); Metamyelocytes # (M) 0.09 k/uL (0); Metamyelocytes % 1 %; Monocytes # (M) 0.94 k/uL (0-1.0); Neutrophils % (M) 76 %; Nucleated Red Blood Cells 27 /100 WBC (0-0); Total Cells Counted 200; WBC 9.4 k/uL (3.8-10.6)
[2018-10-02 06:09] LABS: Anisocytosis (M) Present; Ovalocytes Present; Poikilocytosis (M) Present; Polychromasia Present
[2018-10-02 06:16] LABS: Glucose,Whole Blood 158 mg/dL (75-99)
--- NOTE | 2018-10-02 07:00 | PN ---
PROGRESS NOTE This is a pulmonary/critical care progress note. DATE OF SERVICE: October 02, 2018 CRITICAL CARE TIME: 35 minutes. This is a patient who was admitted back on September 16 for ischemic bowel and perforated ulcer. He subsequently went to the operating room on the day of admission and had a gastric ulcer repair, transverse colectomy and lysis of adhesions. The patient has been on mechanical ventilation since that time. He was intubated on September 16. Because of failure to wean, he had tracheostomy performed on September 26. He remains on the ventilator with hypoxemic respiratory failure and acute respiratory distress syndrome. We have had multiple discussions with the family about this patient. They seem very unrealistic about his prognosis. Anyway, they continue to want him to be a FULL CODE. In fact, 2 days ago they talked to Nephrology about initiating hemodialysis. The patient has been seen by multiple specialists including Cardiology, Infectious Disease, Nephrology, Surgery, and Critical Care. Currently, the patient remains on mechanical ventilator. His settings include the volume assist-control mode rate of 40, tidal volume 500, FiO2 100%, PEEP of 10. Blood gases show pO2 of 97, pCO2 of 64, pH 7.17. Currently he is on multiple drips including norepinephrine at 13 mcg/minute, heparin via weight based protocol, propofol 40 mcg/kg per minute, Nimbex at 2 mcg/kg per minute, saline at 10 mL an hour, amiodarone at 0.5 mg/minute, insulin at 6 units an hour and Vital high-protein at 51 with a goal of 51 mL per hour. He did have hemodialysis for the second yesterday and 2 L were removed. Since starting dialysis, he has required additional support with norepinephrine. The patient's culture showed E. coli in the wound and Coag-negative staph on the catheter tip and in the wounds. He is being treated for both. Overall, the patient has not made any progress in my opinion. In fact, over the last 3 or 4 days since I have been seeing him, he has actually gone backwards. I have relayed that to the family multiple times. PHYSICAL EXAMINATION: VITAL SIGNS: Currently, his vital signs include a temperature of 98.8, heart rate 118, respiratory rate 40, blood pressure 96/50 with a mean of 65 and saturations in the low 90s. Appears in no acute distress because he is sedated and paralyzed. HEENT: Examination is grossly unremarkable. NG tube in place. Neck is supple. Full range of motion. There is a midline tracheostomy. CARDIOVASCULAR: Examination reveals tachycardia. Heart rate 118. S1, S2 normal. No distinct murmur noted. Heart sounds are distant. LUNGS: Reveal coarse bilateral rhonchi. No wheezes or crackles. Breath sounds equal. ABDOMEN: Is soft. No bowel sounds. EXTREMITIES: Are intact. There is significant edema with anasarca. SKIN: Without rash. NEUROLOGIC: Examination cannot be adequately assessed. Microbiology still showing Staph epidermidis on the catheter tip from September 29. The abdominal culture showing E. coli and Mucor species and Edwin-Harris drain is showing Staph epidermidis and E. coli. LABORATORY DATA: Laboratory data includes a white count 9.4, hemoglobin 7.4, hematocrit 28.7, platelet count 323,000. Sodium 134, potassium 5.7, chloride 97, CO2 is 22. Anion gap is 15. BUN and creatinine were 66 and 3.97. Phosphorus is 12.5. Chest x-ray shows diffuse bilateral infiltrates primarily in the lower lobes. There are bilateral pleural effusions. There is cephalization. A midline tracheostomy tube is noted. MEDICATIONS: Medications are reviewed. ASSESSMENT: 1. Chronic hypoxemic respiratory failure with failure to wean from mechanical ventilation with initial intubation on September 16 and subsequent tracheostomy on September 26, secondary to acute respiratory distress syndrome (ARDS). 2. Postoperative day #16, status post exploratory laparotomy, lysis of adhesions, repair of gastric ulcer, and transverse colectomy. 3. Abdominal sepsis with septic shock. 4. Acute hypoxemic respiratory failure with acute respiratory distress syndrome, secondary to sepsis. 5. Acute kidney injury/acute tubular necrosis, with ongoing hemodialysis. 6. Possible abdominal compartment syndrome. 7. Paroxysmal atrial fibrillation. 8. Chronic obstructive pulmonary disease. 9. Status post tracheostomy, September 26, postop day #6. 10.Acute diastolic heart failure. 11.Anion gap metabolic acidosis. 12.Failure to wean from mechanical ventilation. 13.Diabetes mellitus. 14.Chronic hypoxemic respiratory failure, presumed critical illness polyneuropathy. 15.Escherichia coli and Staphylococcus epidermidis sepsis. PLAN: Overall the patient's prognosis remains very poor. I think an ethics consultation would be in order. I usually do not recommend those, but in this case, I think the family is being very unrealistic. The patient's overall prognosis remains very, very poor. The patient has made no progress toward improving. He is now receiving norepinephrine for blood pressure support and he is started on hemodialysis. He remains on multiple drips including norepinephrine, propofol, Cardizem, IV heparin, Nimbex and tube feeds. Suggestions are limited at this point. Additional recommendations will be forthcoming. I have talked to the family multiple times. They seem unrealistic in my opinion. CRITICAL CARE TIME: 35 minutes. ROSEY / SETH: [id number] /
[2018-10-02 08:08] LABS: Glucose,Whole Blood 157 mg/dL (75-99)
[2018-10-02] MEDS: HEPARIN SOD,PORK IN 0.45% NACL 25,000 UNIT in 0.45% NACL 1 250ML.BAG IV SCH ×2 (08:21→20:35)
[2018-10-02] MEDS: CHLORHEXIDINE GLUCONATE 15 ML CUP MUCOUS MEM SCH ×2 (08:22→21:05)
[2018-10-02] MEDS: HYDROCORTISONE SUCCINATE 100 MG/2 ML VIAL IV SCH ×2 (08:24→21:04)
[2018-10-02] MEDS: FUROSEMIDE 10 MG/ML 10 ML VIAL IV SCH ×2 (08:27→21:05)
[2018-10-02] MEDS: PANTOPRAZOLE 40 MG/10 ML VIAL IVP SCH (08:28)
[2018-10-02] MEDS: SODIUM BICARBONATE TAB 650 MG TAB PO SCH ×3 (08:29→21:48)
[2018-10-02] MEDS: CALCIUM ACETATE 667 MG CAP PO SCH ×3 (09:04→18:41)
--- NOTE | 2018-10-02 09:12 | P.PN ---
Subjective Progress Note Date: 10/02/18 Principal diagnosis: Atrial fibrillation/persistent This is a 72-year-old gentleman with a past medical history significant for morbid obesity, chronic atrial fibrillation, chronic diastolic congestive heart failure, as well as multiple comorbid conditions, who was admitted to the hospital with perforated peptic ulcer and he underwent exploratory laparotomy. We get involved in his care for the management of atrial fibrillation. On follow-up with the patient today, 10/02/2018, the patient continues to be intubated on mechanical ventilation. Hemodynamically, unfortunately continues to be unstable and requiring norepinephrine. Yesterday I did DC the Cardizem IV and start the patient on amiodarone IV. He is on heparin IV as well. The prognosis appeared to be very poor. Objective - Vital Signs Vital signs: Vital Signs Temp 98.8 F 10/02/18 04:00 Pulse 122 H 10/02/18 07:39 Resp 40 H 10/02/18 07:00 BP 113/64 10/02/18 07:00 Pulse Ox 98 10/02/18 07:00 Intake & Output 10/01/18 10/02/18 10/02/18 18:59 06:59 18:59 Intake Total 2801.726 2318.374 295.432 Output Total 3130 1262 460 Balance -901.174 1392.374 -164.568 Weight 163.2 kg Intake: IV 504 130 20 0.9 Normal saline @ 10ml/ 120 130 20 hr Anidulafungin 200 mg In 84 Sodium Chloride 0.9% 200 ml @ 84 mls/hr IVPB ONCE ONE Rx#:[id number] Meropenem 1 gm In Sodium 300 Chloride 0.9% 100 ml @ 200 mls/hr IVPB Q12H [facility] Rx#:[id number] Intake, IV Titration 3119.381 3464.374 173.432 Amount Amiodarone 300 mg In 100 368.75 Dextrose 5% in Water 250 ml @ 0.5 MG/MIN 25 mls/hr IV .Q10H [facility] Rx#: [id number] Amiodarone 360 mg In 166.5 50 Dextrose 5% in Water 200 ml @ 1 MG/MIN 33.333 mls/ hr IV .Q6H [facility] Rx#: [id number] Anidulafungin 100 mg In 33.3 Sodium Chloride 0.9% 100 ml @ 84 mls/hr IVPB DAILY @1200 [facility] Rx#:[id number] Cisatracurium 200 mg In 189.329 Sodium Chloride 0.9% 180 ml @ 1 MCG/KG/MIN 9.03 mls/hr IV .Q22H9M [facility] Rx# :[id number] Dextrose 5% in Water 100 100 ml @ 618 mls/hr IV .Q10M [facility] with Amiodarone 150 mg Rx#:[id number] Heparin Sod,Pork in 0.45% 239.04 454.96 0 NaCl 25,000 unit In 0.45 % NaCl 1 250ml.bag @ 6.1 UNITS/KG/HR 9.998 mls/hr IV .Q24H [facility] Rx#: [id number] Insulin Regular 100 unit 64.641 56.745 23.432 In Sodium Chloride 0.9% 100 ml @ Per Protocol IV .Q0M [facility] Rx#:[id number] Norepinephrine 8 mg In 406.307 79.385 Sodium Chloride 0.9% 250 ml @ 0.05 MCG/KG/MIN 14. 35 mls/hr IV .[id number] [facility] Rx#:[id number] Propofol 1,000 mg In 485.938 376.205 100 Empty Bag 1 bag @ Titrate IV .Q0M [facility] Rx#: [id number] Tube Feeding 612 663 102 Other 90 Output: Drainage 1000 1000 Abdomen 700 900 Medial Abdomen 300 100 Urine 130 112 10 Stool 150 450 Hemodialysis 2000 Other: Voiding Method Indwelling Catheter Indwelling Catheter ABP, PAP, CO, CI - Last Documented Arterial Blood Pressure 112/52 - Labs CBC & Chem 7: 10/02/18 05:20 10/02/18 05:20 Labs: Abnormal Lab Results - Last 24 Hours (Table) 10/01/18 10/01/18 10/01/18 Range/Units 09:23 10:14 11:10 RBC (4.30-5.90) m/uL Hgb (13.0-17.5) gm/dL Hct (39.0-53.0) % MCV (80.0-100.0) fL MCH (25.0-35.0) pg MCHC (31.0-37.0) g/dL RDW (11.5-15.5) % Lymphocytes # (Manual) (1.0-4.8) k/uL Metamyelocytes # (Man) (0) k/uL Nucleated RBCs (0-0) /100 WBC APTT (22.0-30.0) sec ABG pH (7.35-7.45) ABG pCO2 (35-45) mmHg ABG Total CO2 (19-24) mmol/L ABG O2 Saturation (94-97) % Sodium (137-145) mmol/L Potassium (3.5-5.1) mmol/L Chloride (98-107) mmol/L BUN (9-20) mg/dL Creatinine (0.66-1.25) mg/dL Glucose (74-99) mg/dL POC Glucose (mg/dL) 166 H 178 H 159 H (75-99) mg/dL Calcium (8.4-10.2) mg/dL Phosphorus (2.5-4.5) mg/dL Magnesium (1.6-2.3) mg/dL 10/01/18 10/01/18 10/01/18 Range/Units 12:23 13:43 15:03 RBC (4.30-5.90) m/uL Hgb (13.0-17.5) gm/dL Hct (39.0-53.0) % MCV (80.0-100.0) fL MCH (25.0-35.0) pg MCHC (31.0-37.0) g/dL RDW (11.5-15.5) % Lymphocytes # (Manual) (1.0-4.8) k/uL Metamyelocytes # (Man) (0) k/uL Nucleated RBCs (0-0) /100 WBC APTT (22.0-30.0) sec ABG pH (7.35-7.45) ABG pCO2 (35-45) mmHg ABG Total CO2 (19-24) mmol/L ABG O2 Saturation (94-97) % Sodium (137-145) mmol/L Potassium (3.5-5.1) mmol/L Chloride (98-107) mmol/L BUN (9-20) mg/dL Creatinine (0.66-1.25) mg/dL Glucose (74-99) mg/dL POC Glucose (mg/dL) 138 H 173 H 179 H (75-99) mg/dL Calcium (8.4-10.2) mg/dL Phosphorus (2.5-4.5) mg/dL Magnesium (1.6-2.3) mg/dL 10/01/18 10/01/18 10/01/18 Range/Units 16:08 17:09 18:09 RBC (4.30-5.90) m/uL Hgb (13.0-17.5) gm/dL Hct (39.0-53.0) % MCV (80.0-100.0) fL MCH (25.0-35.0) pg MCHC (31.0-37.0) g/dL RDW (11.5-15.5) % Lymphocytes # (Manual) (1.0-4.8) k/uL Metamyelocytes # (Man) (0) k/uL Nucleated RBCs (0-0) /100 WBC APTT (22.0-30.0) sec ABG pH (7.35-7.45) ABG pCO2 (35-45) mmHg ABG Total CO2 (19-24) mmol/L ABG O2 Saturation (94-97) % Sodium (137-145) mmol/L Potassium (3.5-5.1) mmol/L Chloride (98-107) mmol/L BUN (9-20) mg/dL Creatinine (0.66-1.25) mg/dL Glucose (74-99) mg/dL POC Glucose (mg/dL) 161 H 153 H 150 H (75-99) mg/dL Calcium (8.4-10.2) mg/dL Phosphorus (2.5-4.5) mg/dL Magnesium (1.6-2.3) mg/dL 10/01/18 10/01/18 10/02/18 Range/Units 20:32 22:33 00:04 RBC (4.30-5.90) m/uL Hgb (13.0-17.5) gm/dL Hct (39.0-53.0) % MCV (80.0-100.0) fL MCH (25.0-35.0) pg MCHC (31.0-37.0) g/dL RDW (11.5-15.5) % Lymphocytes # (Manual) (1.0-4.8) k/uL Metamyelocytes # (Man) (0) k/uL Nucleated RBCs (0-0) /100 WBC APTT (22.0-30.0) sec ABG pH (7.35-7.45) ABG pCO2 (35-45) mmHg ABG Total CO2 (19-24) mmol/L ABG O2 Saturation (94-97) % Sodium (137-145) mmol/L Potassium (3.5-5.1) mmol/L Chloride (98-107) mmol/L BUN (9-20) mg/dL Creatinine (0.66-1.25) mg/dL Glucose (74-99) mg/dL POC Glucose (mg/dL) 160 H 166 H 172 H (75-99) mg/dL Calcium (8.4-10.2) mg/dL Phosphorus (2.5-4.5) mg/dL Magnesium (1.6-2.3) mg/dL 10/02/18 10/02/18 10/02/18 Range/Units 02:18 03:53 04:12 RBC (4.30-5.90) m/uL Hgb (13.0-17.5) gm/dL Hct (39.0-53.0) % MCV (80.0-100.0) fL MCH (25.0-35.0) pg MCHC (31.0-37.0) g/dL RDW (11.5-15.5) % Lymphocytes # (Manual) (1.0-4.8) k/uL Metamyelocytes # (Man) (0) k/uL Nucleated RBCs (0-0) /100 WBC APTT (22.0-30.0) sec ABG pH 7.17 L* (7.35-7.45) ABG pCO2 64 H (35-45) mmHg ABG Total CO2 25 H (19-24) mmol/L ABG O2 Saturation 98.0 H (94-97) % Sodium (137-145) mmol/L Potassium (3.5-5.1) mmol/L Chloride (98-107) mmol/L BUN (9-20) mg/dL Creatinine (0.66-1.25) mg/dL Glucose (74-99) mg/dL POC Glucose (mg/dL) 155 H 175 H (75-99) mg/dL Calcium (8.4-10.2) mg/dL Phosphorus (2.5-4.5) mg/dL Magnesium (1.6-2.3) mg/dL 10/02/18 10/02/18 10/02/18 Range/Units 05:20 05:20 05:20 RBC 3.91 L (4.30-5.90) m/uL Hgb 7.4 L (13.0-17.5) gm/dL Hct 28.7 L (39.0-53.0) % MCV 73.3 L (80.0-100.0) fL MCH 18.9 L (25.0-35.0) pg MCHC 25.8 L (31.0-37.0) g/dL RDW 22.1 H (11.5-15.5) % Lymphocytes # (Manual) 0.66 L (1.0-4.8) k/uL Metamyelocytes # (Man) 0.09 H (0) k/uL Nucleated RBCs 27 H (0-0) /100 WBC APTT 101.4 H* (22.0-30.0) sec ABG pH (7.35-7.45) ABG pCO2 (35-45) mmHg ABG Total CO2 (19-24) mmol/L ABG O2 Saturation (94-97) % Sodium 134 L (137-145) mmol/L Potassium 5.7 H (3.5-5.1) mmol/L Chloride 97 L (98-107) mmol/L BUN 66 H (9-20) mg/dL Creatinine 3.97 H (0.66-1.25) mg/dL Glucose 153 H (74-99) mg/dL POC Glucose (mg/dL) (75-99) mg/dL Calcium 7.7 L (8.4-10.2) mg/dL Phosphorus 12.5 H* (2.5-4.5) mg/dL Magnesium 2.4 H (1.6-2.3) mg/dL 10/02/18 10/02/18 Range/Units 06:13 08:07 RBC (4.30-5.90) m/uL Hgb (13.0-17.5) gm/dL Hct (39.0-53.0) % MCV (80.0-100.0) fL MCH (25.0-35.0) pg MCHC (31.0-37.0) g/dL RDW (11.5-15.5) % Lymphocytes # (Manual) (1.0-4.8) k/uL Metamyelocytes # (Man) (0) k/uL Nucleated RBCs (0-0) /100 WBC APTT (22.0-30.0) sec ABG pH (7.35-7.45) ABG pCO2 (35-45) mmHg ABG Total CO2 (19-24) mmol/L ABG O2 Saturation (94-97) % Sodium (137-145) mmol/L Potassium (3.5-5.1) mmol/L Chloride (98-107) mmol/L BUN (9-20) mg/dL Creatinine (0.66-1.25) mg/dL Glucose (74-99) mg/dL POC Glucose (mg/dL) 158 H 157 H (75-99) mg/dL Calcium (8.4-10.2) mg/dL Phosphorus (2.5-4.5) mg/dL Magnesium (1.6-2.3) mg/dL Microbiology - Last 24 Hours (Table) 09/29/18 15:45 Catheter Tip Culture - Final Catheter Tip Staphylococcus epidermidis 09/27/18 10:10 Anaerobic Culture - Final Abdomen 09/27/18 10:36 Blood Culture - Preliminary Blood No Growth after 96 hours Assessment and Plan Assessment: Assessment #1 perforated peptic ulcer #2 status post surgery #3 chronic persistent atrial fibrillation #4 morbid obesity #5 acute renal failure #6 multiple comorbid conditions Plan #1 continue amiodarone IV #2 continue anticoagulation with heparin IV #3 follow-up with the patient
--- NOTE | 2018-10-02 09:52 | P.PN ---
Subjective Patient is seen in follow-up for acute kidney injury. Patient remains oliguric. He was started on hemodialysis September 30. Currently on 13 mics of Levophed. Potassium level on the higher side. Currently receiving tube feeding. Currently sitting while undergoing hemodialysis. Patient is on 100% FiO2. Vital signs are stable. Currently on vasopressors. General: The patient appeared well nourished and normally developed. HEENT: Head exam is unremarkable. Neck is without jugular venous distension. OG tube noted. LUNGS: Lungs are clear to auscultation and percussion. Breath sounds decreased. HEART: Rate and Rhythm are regular. First and second heart sounds normal. No murmurs, rubs or gallops. ABDOMEN: Bowel sounds decreased. EXTREMITITES: 2+ edema. Scrotal edema noted. Objective - Vital Signs Vital signs: Vital Signs Temp 98.8 F 10/02/18 04:00 Pulse 122 H 10/02/18 07:39 Resp 40 H 10/02/18 07:00 BP 113/64 10/02/18 07:00 Pulse Ox 98 10/02/18 07:00 Intake & Output 10/01/18 10/02/18 10/02/18 18:59 06:59 18:59 Intake Total 2801.726 2318.374 721.520 Output Total 3130 1262 460 Balance -943.615 2348.374 261.520 Weight 163.2 kg Intake: IV 504 130 20 0.9 Normal saline @ 10ml/ 120 130 20 hr Anidulafungin 200 mg In 84 Sodium Chloride 0.9% 200 ml @ 84 mls/hr IVPB ONCE ONE Rx#:[id number] Meropenem 1 gm In Sodium 300 Chloride 0.9% 100 ml @ 200 mls/hr IVPB Q12H [facility] Rx#:[id number] Intake, IV Titration 4374.523 4866.374 599.520 Amount Amiodarone 300 mg In 100 368.75 222.5 Dextrose 5% in Water 250 ml @ 0.5 MG/MIN 25 mls/hr IV .Q10H [facility] Rx#: [id number] Amiodarone 360 mg In 166.5 50 Dextrose 5% in Water 200 ml @ 1 MG/MIN 33.333 mls/ hr IV .Q6H [facility] Rx#: [id number] Anidulafungin 100 mg In 33.3 Sodium Chloride 0.9% 100 ml @ 84 mls/hr IVPB DAILY @1200 [facility] Rx#:[id number] Cisatracurium 200 mg In 189.329 Sodium Chloride 0.9% 180 ml @ 1 MCG/KG/MIN 9.03 mls/hr IV .Q22H9M [facility] Rx# :[id number] Dextrose 5% in Water 100 100 ml @ 618 mls/hr IV .Q10M [facility] with Amiodarone 150 mg Rx#:[id number] Heparin Sod,Pork in 0.45% 239.04 454.96 0 NaCl 25,000 unit In 0.45 % NaCl 1 250ml.bag @ 6.1 UNITS/KG/HR 9.998 mls/hr IV .Q24H [facility] Rx#: [id number] Insulin Regular 100 unit 64.641 56.745 23.432 In Sodium Chloride 0.9% 100 ml @ Per Protocol IV .Q0M [facility] Rx#:[id number] Norepinephrine 8 mg In 406.307 79.385 203.588 Sodium Chloride 0.9% 250 ml @ 0.05 MCG/KG/MIN 14. 35 mls/hr IV .[id number] [facility] Rx#:[id number] Propofol 1,000 mg In 485.938 376.205 100 Empty Bag 1 bag @ Titrate IV .Q0M [facility] Rx#: [id number] Tube Feeding 612 663 102 Other 90 Output: Drainage 1000 1000 Abdomen 700 900 Medial Abdomen 300 100 Urine 130 112 10 Stool 150 450 Hemodialysis 2000 Other: Voiding Method Indwelling Catheter Indwelling Catheter ABP, PAP, CO, CI - Last Documented Arterial Blood Pressure 112/52 - Labs CBC & Chem 7: 10/02/18 05:20 10/02/18 05:20 Labs: Abnormal Lab Results - Last 24 Hours (Table) 10/01/18 10/01/18 10/01/18 Range/Units 10:14 11:10 12:23 RBC (4.30-5.90) m/uL Hgb (13.0-17.5) gm/dL Hct (39.0-53.0) % MCV (80.0-100.0) fL MCH (25.0-35.0) pg MCHC (31.0-37.0) g/dL RDW (11.5-15.5) % Lymphocytes # (Manual) (1.0-4.8) k/uL Metamyelocytes # (Man) (0) k/uL Nucleated RBCs (0-0) /100 WBC APTT (22.0-30.0) sec ABG pH (7.35-7.45) ABG pCO2 (35-45) mmHg ABG Total CO2 (19-24) mmol/L ABG O2 Saturation (94-97) % Sodium (137-145) mmol/L Potassium (3.5-5.1) mmol/L Chloride (98-107) mmol/L BUN (9-20) mg/dL Creatinine (0.66-1.25) mg/dL Glucose (74-99) mg/dL POC Glucose (mg/dL) 178 H 159 H 138 H (75-99) mg/dL Calcium (8.4-10.2) mg/dL Phosphorus (2.5-4.5) mg/dL Magnesium (1.6-2.3) mg/dL 10/01/18 10/01/18 10/01/18 Range/Units 13:43 15:03 16:08 RBC (4.30-5.90) m/uL Hgb (13.0-17.5) gm/dL Hct (39.0-53.0) % MCV (80.0-100.0) fL MCH (25.0-35.0) pg MCHC (31.0-37.0) g/dL RDW (11.5-15.5) % Lymphocytes # (Manual) (1.0-4.8) k/uL Metamyelocytes # (Man) (0) k/uL Nucleated RBCs (0-0) /100 WBC APTT (22.0-30.0) sec ABG pH (7.35-7.45) ABG pCO2 (35-45) mmHg ABG Total CO2 (19-24) mmol/L ABG O2 Saturation (94-97) % Sodium (137-145) mmol/L Potassium (3.5-5.1) mmol/L Chloride (98-107) mmol/L BUN (9-20) mg/dL Creatinine (0.66-1.25) mg/dL Glucose (74-99) mg/dL POC Glucose (mg/dL) 173 H 179 H 161 H (75-99) mg/dL Calcium (8.4-10.2) mg/dL Phosphorus (2.5-4.5) mg/dL Magnesium (1.6-2.3) mg/dL 10/01/18 10/01/18 10/01/18 Range/Units 17:09 18:09 20:32 RBC (4.30-5.90) m/uL Hgb (13.0-17.5) gm/dL Hct (39.0-53.0) % MCV (80.0-100.0) fL MCH (25.0-35.0) pg MCHC (31.0-37.0) g/dL RDW (11.5-15.5) % Lymphocytes # (Manual) (1.0-4.8) k/uL Metamyelocytes # (Man) (0) k/uL Nucleated RBCs (0-0) /100 WBC APTT (22.0-30.0) sec ABG pH (7.35-7.45) ABG pCO2 (35-45) mmHg ABG Total CO2 (19-24) mmol/L ABG O2 Saturation (94-97) % Sodium (137-145) mmol/L Potassium (3.5-5.1) mmol/L Chloride (98-107) mmol/L BUN (9-20) mg/dL Creatinine (0.66-1.25) mg/dL Glucose (74-99) mg/dL POC Glucose (mg/dL) 153 H 150 H 160 H (75-99) mg/dL Calcium (8.4-10.2) mg/dL Phosphorus (2.5-4.5) mg/dL Magnesium (1.6-2.3) mg/dL 10/01/18 10/02/18 10/02/18 Range/Units 22:33 00:04 02:18 RBC (4.30-5.90) m/uL Hgb (13.0-17.5) gm/dL Hct (39.0-53.0) % MCV (80.0-100.0) fL MCH (25.0-35.0) pg MCHC (31.0-37.0) g/dL RDW (11.5-15.5) % Lymphocytes # (Manual) (1.0-4.8) k/uL Metamyelocytes # (Man) (0) k/uL Nucleated RBCs (0-0) /100 WBC APTT (22.0-30.0) sec ABG pH (7.35-7.45) ABG pCO2 (35-45) mmHg ABG Total CO2 (19-24) mmol/L ABG O2 Saturation (94-97) % Sodium (137-145) mmol/L Potassium (3.5-5.1) mmol/L Chloride (98-107) mmol/L BUN (9-20) mg/dL Creatinine (0.66-1.25) mg/dL Glucose (74-99) mg/dL POC Glucose (mg/dL) 166 H 172 H 155 H (75-99) mg/dL Calcium (8.4-10.2) mg/dL Phosphorus (2.5-4.5) mg/dL Magnesium (1.6-2.3) mg/dL 10/02/18 10/02/18 10/02/18 Range/Units 03:53 04:12 05:20 RBC (4.30-5.90) m/uL Hgb (13.0-17.5) gm/dL Hct (39.0-53.0) % MCV (80.0-100.0) fL MCH (25.0-35.0) pg MCHC (31.0-37.0) g/dL RDW (11.5-15.5) % Lymphocytes # (Manual) (1.0-4.8) k/uL Metamyelocytes # (Man) (0) k/uL Nucleated RBCs (0-0) /100 WBC APTT (22.0-30.0) sec ABG pH 7.17 L* (7.35-7.45) ABG pCO2 64 H (35-45) mmHg ABG Total CO2 25 H (19-24) mmol/L ABG O2 Saturation 98.0 H (94-97) % Sodium 134 L (137-145) mmol/L Potassium 5.7 H (3.5-5.1) mmol/L Chloride 97 L (98-107) mmol/L BUN 66 H (9-20) mg/dL Creatinine 3.97 H (0.66-1.25) mg/dL Glucose 153 H (74-99) mg/dL POC Glucose (mg/dL) 175 H (75-99) mg/dL Calcium 7.7 L (8.4-10.2) mg/dL Phosphorus 12.5 H* (2.5-4.5) mg/dL Magnesium 2.4 H (1.6-2.3) mg/dL 10/02/18 10/02/18 10/02/18 Range/Units 05:20 05:20 06:13 RBC 3.91 L (4.30-5.90) m/uL Hgb 7.4 L (13.0-17.5) gm/dL Hct 28.7 L (39.0-53.0) % MCV 73.3 L (80.0-100.0) fL MCH 18.9 L (25.0-35.0) pg MCHC 25.8 L (31.0-37.0) g/dL RDW 22.1 H (11.5-15.5) % Lymphocytes # (Manual) 0.66 L (1.0-4.8) k/uL Metamyelocytes # (Man) 0.09 H (0) k/uL Nucleated RBCs 27 H (0-0) /100 WBC APTT 101.4 H* (22.0-30.0) sec ABG pH (7.35-7.45) ABG pCO2 (35-45) mmHg ABG Total CO2 (19-24) mmol/L ABG O2 Saturation (94-97) % Sodium (137-145) mmol/L Potassium (3.5-5.1) mmol/L Chloride (98-107) mmol/L BUN (9-20) mg/dL Creatinine (0.66-1.25) mg/dL Glucose (74-99) mg/dL POC Glucose (mg/dL) 158 H (75-99) mg/dL Calcium (8.4-10.2) mg/dL Phosphorus (2.5-4.5) mg/dL Magnesium (1.6-2.3) mg/dL 10/02/18 Range/Units 08:07 RBC (4.30-5.90) m/uL Hgb (13.0-17.5) gm/dL Hct (39.0-53.0) % MCV (80.0-100.0) fL MCH (25.0-35.0) pg MCHC (31.0-37.0) g/dL RDW (11.5-15.5) % Lymphocytes # (Manual) (1.0-4.8) k/uL Metamyelocytes # (Man) (0) k/uL Nucleated RBCs (0-0) /100 WBC APTT (22.0-30.0) sec ABG pH (7.35-7.45) ABG pCO2 (35-45) mmHg ABG Total CO2 (19-24) mmol/L ABG O2 Saturation (94-97) % Sodium (137-145) mmol/L Potassium (3.5-5.1) mmol/L Chloride (98-107) mmol/L BUN (9-20) mg/dL Creatinine (0.66-1.25) mg/dL Glucose (74-99) mg/dL POC Glucose (mg/dL) 157 H (75-99) mg/dL Calcium (8.4-10.2) mg/dL Phosphorus (2.5-4.5) mg/dL Magnesium (1.6-2.3) mg/dL Microbiology - Last 24 Hours (Table) 09/29/18 15:45 Catheter Tip Culture - Final Catheter Tip Staphylococcus epidermidis 09/27/18 10:10 Anaerobic Culture - Final Abdomen 09/27/18 10:36 Blood Culture - Preliminary Blood No Growth after 96 hours Assessment and Plan Plan: Assessment: 1. Oliguric acute kidney injury secondary to ATN secondary to septic shock. Baseline creatinine is 1. Currently hemodialysis dependent. 2. Pneumoperitoneum secondary to perforated gastric ulcer status post exploratory laparotomy with lysis of adhesions and repair of gastric ulcer on Ju ly 23. 3. A. fib with RVR maintained on amiodarone and heparin drip. 4. Volume overload. 5. Septic shock secondary to peritonitis from perforated peptic ulcer maintained on IV antibiotics. 6. Hyperphosphatemia secondary to acute kidney injury. Maintained on PhosLo. 7. Metabolic acidosis secondary to acute kidney injury and IV fluids. Better. Maintained on oral sodium bicarbonate. 8. Hyperkalemia secondary to acute kidney injury. Plan: Maintain tube feeding. Maintain Lasix 80 mg IV twice daily. Currently seen while undergoing hemodialysis. Will continue with daily dialysis for now. Continue to monitor renal function and urine output. Maintain Aranesp. Overall prognosis poor. Family updated.
[2018-10-02 10:04] VITALS: BMI 50.1
[2018-10-02 10:14] LABS: Glucose,Whole Blood 137 mg/dL (75-99)
[2018-10-02 10:20] LABS: ABG PO2 56 mmHg (83-108)
--- NOTE | 2018-10-02 10:47 | XR ---
EXAMINATION TYPE: XR chest 1V portable DATE OF EXAM: 10/02/2018 COMPARISON: Prior chest x-ray 10/01/2018 HISTORY: Patient on mechanical ventilation, abnormal chest x-ray, orogastric tube TECHNIQUE: frontal view of the chest is obtained on 2 images. FINDINGS: Tracheostomy tube, orogastric tube are noted and overlying appropriate positions. There is a drain present in the left upper quadrant. Patient is rotated. Bibasilar increased attenuation is a gain noted, the hemidiaphragms are obscured. Heart size may be exaggerated by rotation. Central vascu larity is increased. No evident pneumothorax. Left-sided PICC line is present, distal tip overlying t he region of the left subclavian or innominate vein. IMPRESSION: Findings are similar to prior exam. Correlate for possible congestive heart failure, ple ural effusions. Pneumonia not excluded.
[2018-10-02 12:02] LABS: Glucose,Whole Blood 147 mg/dL (75-99)
[2018-10-02] MEDS: INSULIN REGULAR 100 UNIT in SODIUM CHLORIDE 0.9% 100 ML IV SCH (12:03)
[2018-10-02] MEDS: ANIDULAFUNGIN 100 MG in SODIUM CHLORIDE 0.9% 100 ML IVPB SCH (12:57)
[2018-10-02 13:10] LABS: Glucose,Whole Blood 157 mg/dL (75-99)
[2018-10-02 14:00] LABS: Glucose,Whole Blood 166 mg/dL (75-99)
--- NOTE | 2018-10-02 14:17 | P.PN ---
Subjective Progress Note Date: 10/02/18 This is a 72-year-old male patient of Dr. Cevallos with past history of chronic hypoxic respiratory failure on home O2 obstructive sleep apnea on CPAP, paroxysmal atrial fibrillation, chronic diastolic heart failure, severe COPD, morbid obesity with BMI of 47, hypertension hypertensive cardiovascular disease, mild intermittent asthma, hyperlipidemia, gastroesophageal reflux disease, diabetes mellitus type 2, cellulitis of the abdominal wall. Patient was recently hospitalized and discharged home on September 12 and treated for acute diastolic heart failure, atrial flutter/atrial fibrillation with rapid ventricular response status post MIKE which found a small atrial appendage thrombus. The patient was stabilized and discharged home in stable condition and had been started on amiodarone, eliquis, Aldactone, prednisone and Augmentin. Patient presented to [facility] emergency center for evaluation. He was afebrile, heart rate 130s, blood pressure 119/79, pulse ox 95%. White count was 5.9, hemoglobin 10.6, platelet count 4-72. Sodium 133, potassium 5.4, chloride 96, CO2 20, BUN 36 and creatinine 1.6, blood sugar 178. CAT scan of the abdomen and pelvis revealed pneumoperitoneum. Bowel distention. Bowel ischemia not excluded. No clear obstruction. Findings may be due to ileus. Patient was provided IV fluids, pain medication and Zosyn patient was seen by Dr. De Leon in the emergency center and taken to the OR found to have a perforated gastric ulcer, ischemic colon at the site of splenic flexure of the bowel obstruction. Patient underwent exploratory laparotomy, lysis of adhesions, decompression of the colon and small bowel, transverse colectomy and takedown of splenic flexure and repair of a gastric ulcer. Patient was then transferred to the intensive care unit and followed by Dr. Red. He is status post greater than 8 L of IV fluid and on norepinephrine and subsequent started on vasopressin. Urine output has been marginal patient remains intubated and on mechanical ventilation with tidal volume 550, FiO2 of 50% and PEEP of 5. The patient is on sedation. 09/18: Patient remains in intensive care unit intubated and on mechanical vent ilation with tidal volume 550, FiO2 50, PEEP 5. NG tube with black drainage. He is on 22 mics of levo fed and 0.03 vasopressin. Patient was started on amiodarone due to continued A. fib with RVR. Heart rate is in the 140s, blood pressure systolic 99. A.m. lab work white count 9.6, hemoglobin 8.5, platelet count 368. Sodium 136, potassium 4.9, chloride 108, CO2 18, BUN 39 creatinine 1.81. Blood sugars are running between 141 and 161. Urine culture is in progress and blood culture is no growth at [address] Benedict is recommended continuing Zosyn and Diflucan. Son is at bedside and all questions have been answered. 09/19: Patient remains in the intensive care unit intubated and on mechanical ventilation with tidal volume 550, FiO2 40 and PEEP of 5. Norepinephrine is now down to 5 mics and minimal on vasopressin. Urine output has been more than adequate. He has been afebrile. He is continued on sedation with propofol. A sedation holiday was attempted today but patient became tachypneic. Patient is back on sedation with plan for tomorrow for sedation holiday tomorrow. Patient has had output from colostomy and passing gas and colostomy. Decreased output from NG tube and from CHAVEZ drain. WBC 8.6, hemoglobin 7.8. He has been afebrile, heart rate 99, blood pressure 90/63. TPN has been started. Amiodarone drip to be discontinued. classroom monitor is currently A. fib with controlled rate. 09/20 Patient remains in ICU, currently nothing by mouth, CHAVEZ drain has drained ov er 2 L in 24 hours, patient has been off pressors, urine output is normal, patient is still on TPN, patient still has abdominal discomfort, otherwise no chest pain no shortness of breath, no palpitations. Hemoglobin currently at 7.4 from an admitting hemoglobin of 9.4, iron studies to be done, agent has initial myelocytes on admission, creatinine 1.02 from 1.2, surgical incision is dry, there is stool output in the colostomy bag, patient remains on mechanical ventilator, unchanged and settings. Followed closely by pulmonary medicine, Cardizem drip was initiated for atrial fibrillation. Attempt to be made with weaning ventilatory support in a.m. : Postop day #5, he was given sedation holiday today, and was able to follow verbal commands, unable to wean today secondary to parameters from Dr. Red, patient went back to assist control mode of ventilation, Lasix was given 401 dose for CHF, pulmonary edema, blood pressure remains stable, negative balance of 1.3 L, urine output is good, has decreased output on the CHAVEZ drain, small amount of mucus stools today, still diminished bowel sounds currently nothing by mouth, general surgery following closely, 09/22: Patient remains intubated and on mechanical ventilation with tidal volume 550, FiO2 40, PEEP 5. Patient failed weaning attempt this morning. Patient is off vasopressors. He has been afebrile, heart rate 108, blood pressure 116/57. Repeat lab work reveals white count of 8.5, hemoglobin 7.8, platelet count 372. Sodium is 150, potassium 3.9, chloride 122, CO2 20, BUN 29 creatinine 0.92. Blood sugars run between 160 [birth year]1976. Phosphorus 3.4. Magnesium 2.4. Repeat chest x-ray this morning reveals persistent bilateral infiltrate and pleural effusion correlate for heart failure. Patient is maintained on Cardizem drip started over the weekend by underwater photographer. The patient is also continued on TPN. No plan for tube feedings until extubated. Patient does have a liquid stool in ostomy. Urine output has been adequate. CHAVEZ drain remains in place. Consult for cardiology added for atrial fibrillation. 09/23: Repeat chest x-ray shows diffuse pleuroparenchymal changes are stable correlate for diffuse pneumonia versus heart failure. Chest ultrasound shows small left pleural effusion. Cardiology is following for atrial fibrillation. Patient is maintained on IV Cardizem and heparin. Blood pressure is currently controlled. Heart rate is also controlled. The temperature max 100.7, heart rate 98, blood pressure 126/83, pulse ox 93%. We have ordered pancultures including blood culture, sputum, urine, CHAVEZ drain cultures to be obtained. Patient is continued on sedation, intubation and mechanical ventilation. Tidal volume FiO2 550, FiO2 40, PEEP of 5. Repeat lab work reveals white count of 9.4, hemoglobin 7.6, count 372. Sodium 151, potassium 3.4, chloride 119, CO2 24, creatinine 0.94, BUN 27. Blood sugars running between 170 and 182. General surgery planning for wound VAC to the abdominal incision. Patient is now on IV Lasix [address] Mendoza is concern for evolving ARDS. Anticipate probable trach and PEG tube placement by the end of the week. 09/24: The patient remains intubated and on mechanical ventilation with tidal volume 550, FiO2 50%, PEEP 5. Patient remains on sedation. No low-grade fevers this morning. classroom monitor is A. fib with controlled rate in the 80s and 90s. Patient remains on Cardizem drip and heparin drip. Blood pressure is currently stable. Lasix is at 40 mg IV every 12 hours with noted decrease edema. Patient has good urine output, positive stool output. Patient has been started on Solu-Cortef. 09/25: Patient remains intubated and on mechanical ventilation with tidal volume 550, FiO2 40, PEEP 5. He is on norepinephrine. Patient is scheduled for trach and PEG tube tomorrow. NG tube is in place to suction. He still noted to have generalized anasarca and now hydrocele on the scrotum. Patient has been afebrile, heart rate 88, blood pressure 117/68. Repeat lab work reveals hemoglobin 7.5, WBC 9.4, hemoglobin 323. Sodium 146, potassium 3.6, chloride 114, CO2 24, BUN 26, creatinine 0.82. Blood sugars in the low 200s. Patient will be started on Levemir 6 units daily. 09/26: Patient remains in the intensive care unit, intubated and on mechanical ventilation with a 5 O2 of 40% and PEEP of 5. He is scheduled for PEG tube and trach placement today. Chest x-ray reveals diffuse pleuroparenchymal changes are stable and correlate for pneumonia versus heart failure. Patient remains on Cardizem and heparin drip for atrial fibrillation, controlled rate. The patient also continued on full, soft and Zosyn. Culture from CHAVEZ drain is positive for Staphylococcus epidermidis and gram-negative bacilli. Lasix currently at 40 mg IV every 8 hours and Solu-Cortef 50 mg IV every 12 hours. A blood sugars remain elevated and Levemir will be increased to 10 units. CHAVEZ drain was scant amount of drainage. Gastric tube remains in place. Wound VAC for abdominal wound. 09/27: Patient had trach placed yesterday but PEG tube was unsuccessful. He remains on mechanical ventilation with tidal volume 550, FiO2 45 and PEEP of 5. NG tube is in place. Patient is on TPN. He remains on Cardizem drip and to resume heparin drip later today. He is currently off sedation. Temperature max 100.4. Heart rate 150 with atrial fibrillation, respirations 26, blood pressure 95/61, pulse ox 95%. WBC 12.8, hemoglobin 8.2, platelet count 292. Sodium 142, potassium 4.2, chloride 108, CO2 23, BUN 20 creatinine 1.04. Blood sugars are r unning between 184 and 233. Magnesium 2.1 phosphorus 4.8. Today, cardiology has started the patient on amiodarone drip for rate control. Levemir will be increased 12 units daily. Repeat chest x-ray reveals no significant interval change. 09/28: Yesterday, patient became tachypneic and desaturated require going back on levo fed which is currently at 30 mics. Patient did not have any urine output or minimal output. He was started on amiodarone yesterday morning and heart rate decreased around 2 PM. Patient has received a total of 2500, rales fluid bolus. Lasix 1 dose was given last evening to 40 mg and he scheduled for 80 mg this morning. We will plan to start him on 80 mg every 12 hours. Patient was also started on Nimbex. CAT scan of the abdomen was done which revealed interval development of moderate bilateral pleural effusions with associated atelectasis or consolidation. Cardiomegaly, hepatomegaly. Ascites within the abdomen without definite abscess formation. Stable wedge compression fracture of T12. The patient's nurse relates that they did see a small amount of pus at the wound site and culture was obtained which is in progress. Patient is continued on amiodarone, Cardizem drip and heparin drip for atrial fibrillation. He has continued also on TPN. Temperature max in past 24 hours 100.4. Heart rate is currently 88, blood pressure 115/72. WBC 15.2, hemoglobin 7.4, platelet count 300. Sodium 139, potassium 5.4, chloride 108, BUN 42 and creatinine 1.96. Blood sugars in the 200s. Levemir will be increased to 15 units. 09/29 patient examined bedside continues to have significantly elevated creatinine with the improvement worsening of creatinine from 1.96-2.73 today. Patient's oxygen needs have worsened since yesterday with increase in FiO2 70%. Arterial blood class done today suggest a pH of 7.23 pO2 of 47 pCO2 of 40. Vitals are stable currently patient is off Levophed since 5 this morning urine output is still low at 10 mL per hour. Continue TPN at 55 mL per hour for. Patient's glucose this morning is 266. Will switch patient's insulin to insulin drip. Continue Lasix 80 IV twice a day. Nephrology is consulted and recommends sodium bicarb tablet along with PhosLo 09/30 patient remains intubated with no improvement in oxygenation. Patient desaturated into the low 80% on 9200% of FiO2. Renal replacement therapy started today per patient's potassium continued to rise with a potassium of 5.6 with increasing creatinine of 3.68. Patient continues on Lasix 80 twice a day with no improvement in urine output. FiO2 increased to 100% with a PEEP of 10. Patient's prognosis is poor. I spoke with multiple family members including and brother and updated on patient's prognosis. Patient is currently on 30 mics of Levophed . Urine output 5 mL per hour. 10/01 patient remains intubated and sedated. Continues to be in atrial fibrillation with elevated 110-120. Cardizem was discontinued by cardiology and patient was placed on amiodarone drip. Vitals suggest a heart rate of 120 and respiratory rate of 40 with pressure 116/65. Blood work suggest a hemoglobin of 7.1 with platelet 320 ABG suggest a pH of 7.25 pCO2 51 pO2 63 on FiO2 of 100% and PEEP of 10. We will plan for bronchoscopy. Creatinine slightly improved since yesterday on dialysis is phosphorus still elevated on PhosLo. Hepatitis panel was negative patient receiving another dialysis session today. Slight improvement in urine output to 10-15 mL per hour. Patient continues to be on Nimbex and propofol patient is a poor prognosis /8 patient examined bedside is currently intubated and sedated. No improvement has been noted since yesterday patient's pulse rate is 121 Atrial fibrillation respiratory rate is 20 blood pressure 101/58 on vasopressor with saturation 94-98% on 100% of FiO2 10 of PEEP, tidal volume of 500. ABGs noted to show decline in the pH of 7.1 set than the home with a CO2 of 64 bicarb of 23 currently on bicarb tablets. Patient had dialysis yesterday and also underwent dialysis today with the removal of 2 L no improvement is noted in the creatinine 1 BUN from phosphorus continues to rise on PhosLo and last repeated was 12.5. Urine output has sick declined to less than 5 mL per hour. Patient continued being on Pneumovax as well as propofol. Dilaudid can be discontinued. No fever episodes noted. Continue antibiotics recommended by infectious disease. Detailed discussion has been made to the family with explanation of prognosis breath still want to continue with current care. Prognosis appears to be poor. Objective - Vital Signs Vital signs: Vital Signs Temp 98.2 F 10/02/18 12:45 Pulse 121 H 10/02/18 13:15 Resp 40 H 10/02/18 13:15 BP 101/58 10/02/18 13:15 Pulse Ox 94 L 10/02/18 13:15 Intake & Output 10/01/18 10/02/18 10/02/18 18:59 06:59 18:59 Intake Total 2801.726 2318.374 1799.147 Output Total 3130 1262 2471 Balance -242.200 8761.374 -671.853 Weight 163.2 kg 163.2 kg Intake: IV 504 130 70 0.9 Normal saline @ 10ml/ 120 130 70 hr Anidulafungin 200 mg In 84 Sodium Chloride 0.9% 200 ml @ 84 mls/hr IVPB ONCE ONE Rx#:[id number] Meropenem 1 gm In Sodium 300 Chloride 0.9% 100 ml @ 200 mls/hr IVPB Q12H [facility] Rx#:[id number] Intake, IV Titration 7911.513 8760.374 1404.147 Amount Amiodarone 300 mg In 100 368.75 222.5 Dextrose 5% in Water 250 ml @ 0.5 MG/MIN 25 mls/hr IV .Q10H [facility] Rx#: [id number] Amiodarone 300 mg In 100 Dextrose 5% in Water 250 ml @ 0.5 MG/MIN 25 mls/hr IV .Q10H [facility] Rx#: [id number] Amiodarone 360 mg In 166.5 50 Dextrose 5% in Water 200 ml @ 1 MG/MIN 33.333 mls/ hr IV .Q6H [facility] Rx#: [id number] Anidulafungin 100 mg In 33.3 84 Sodium Chloride 0.9% 100 ml @ 84 mls/hr IVPB DAILY @1200 [facility] Rx#:[id number] Cisatracurium 200 mg In 189.329 172.473 Sodium Chloride 0.9% 180 ml @ 1 MCG/KG/MIN 9.03 mls/hr IV .Q22H9M [facility] Rx# :[id number] Dextrose 5% in Water 100 100 ml @ 618 mls/hr IV .Q10M [facility] with Amiodarone 150 mg Rx#:[id number] Heparin Sod,Pork in 0.45% 239.04 454.96 0 NaCl 25,000 unit In 0.45 % NaCl 1 250ml.bag @ 6.1 UNITS/KG/HR 9.998 mls/hr IV .Q24H [facility] Rx#: [id number] Insulin Regular 100 unit 64.641 56.745 41.023 In Sodium Chloride 0.9% 100 ml @ Per Protocol IV .Q0M [facility] Rx#:[id number] Meropenem 1 gm In Sodium 100 Chloride 0.9% 100 ml @ 200 mls/hr IVPB Q12H [facility] Rx#:[id number] Meropenem 500 mg In 86 Sodium Chloride 0.9% 50 ml @ 100 mls/hr IVPB Q12H [facility] Rx#:[id number] Norepinephrine 8 mg In 406.307 79.385 263.287 Sodium Chloride 0.9% 250 ml @ 0.05 MCG/KG/MIN 14. 35 mls/hr IV .[id number] [facility] Rx#:[id number] Propofol 1,000 mg In 485.938 376.205 284.864 Empty Bag 1 bag @ Titrate IV .Q0M [facility] Rx#: [id number] Tube Feeding 612 663 265 Other 90 60 Output: Drainage 1000 1000 Abdomen 700 900 Medial Abdomen 300 100 Urine 130 112 21 Stool 150 450 Hemodialysis 1999 1999 Other: Voiding Method Indwelling Catheter Indwelling Catheter Indwelling Catheter ABP, PAP, CO, CI - Last Documented Arterial Blood Pressure 112/52 - Exam Gen: This is a 72-year-old morbidly obese male. He is in the intensive care unit. Patient is intubated and on mechanical ventilation. Patient appears to be comfortable. HEENT: Head is atraumatic, normocephalic. Pupils equal, round. Sclerae is anicteric. NG tube in place to suction. Trach in place connected to mechanical ventilation. NECK: Supple. No JVD. No lymphadenopathy. No thyromegaly. LUNGS: Diminished bilaterally with scattered rhonchi. Patient appears comfortable. HEART: Irregular rate and rhythm. Systolic murmur. classroom monitor atrial fibrillation with RVR. ABDOMEN: Soft. Large. Normal bowel sounds are present. Colostomy in the left upper quadrant with stool output. There is a large mid abdominal incision with wound VAC. CHAVEZ drain. Foster catheter draining clear urine. EXTREMITIES: anasarca and 1+ bilateral pedal edema. Midline to right upper arm. Dialysis catheter in the right groin scrotal edema noted NEUROLOGICAL: Patient is sedated. - Labs CBC & Chem 7: 10/02/18 05:20 10/02/18 05:20 Labs: Abnormal Lab Results - Last 24 Hours (Table) 09/30/18 10/01/18 10/01/18 Range/Units 04:56 15:03 16:08 RBC (4.30-5.90) m/uL Hgb (13.0-17.5) gm/dL Hct (39.0-53.0) % MCV (80.0-100.0) fL MCH (25.0-35.0) pg MCHC (31.0-37.0) g/dL RDW (11.5-15.5) % Lymphocytes # (Manual) (1.0-4.8) k/uL Metamyelocytes # (Man) (0) k/uL Nucleated RBCs (0-0) /100 WBC APTT (22.0-30.0) sec ABG pH (7.35-7.45) ABG pCO2 (35-45) mmHg ABG pO2 56 L* (83-108) mmHg ABG Total CO2 (19-24) mmol/L ABG O2 Saturation (94-97) % Sodium (137-145) mmol/L Potassium (3.5-5.1) mmol/L Chloride (98-107) mmol/L BUN (9-20) mg/dL Creatinine (0.66-1.25) mg/dL Glucose (74-99) mg/dL POC Glucose (mg/dL) 179 H 161 H (75-99) mg/dL Calcium (8.4-10.2) mg/dL Phosphorus (2.5-4.5) mg/dL Magnesium (1.6-2.3) mg/dL 10/01/18 10/01/18 10/01/18 Range/Units 17:09 18:09 20:32 RBC (4.30-5.90) m/uL Hgb (13.0-17.5) gm/dL Hct (39.0-53.0) % MCV (80.0-100.0) fL MCH (25.0-35.0) pg MCHC (31.0-37.0) g/dL RDW (11.5-15.5) % Lymphocytes # (Manual) (1.0-4.8) k/uL Metamyelocytes # (Man) (0) k/uL Nucleated RBCs (0-0) /100 WBC APTT (22.0-30.0) sec ABG pH (7.35-7.45) ABG pCO2 (35-45) mmHg ABG pO2 (83-108) mmHg ABG Total CO2 (19-24) mmol/L ABG O2 Saturation (94-97) % Sodium (137-145) mmol/L Potassium (3.5-5.1) mmol/L Chloride (98-107) mmol/L BUN (9-20) mg/dL Creatinine (0.66-1.25) mg/dL Glucose (74-99) mg/dL POC Glucose (mg/dL) 153 H 150 H 160 H (75-99) mg/dL Calcium (8.4-10.2) mg/dL Phosphorus (2.5-4.5) mg/dL Magnesium (1.6-2.3) mg/dL 10/01/18 10/02/18 10/02/18 Range/Units 22:33 00:04 02:18 RBC (4.30-5.90) m/uL Hgb (13.0-17.5) gm/dL Hct (39.0-53.0) % MCV (80.0-100.0) fL MCH (25.0-35.0) pg MCHC (31.0-37.0) g/dL RDW (11.5-15.5) % Lymphocytes # (Manual) (1.0-4.8) k/uL Metamyelocytes # (Man) (0) k/uL Nucleated RBCs (0-0) /100 WBC APTT (22.0-30.0) sec ABG pH (7.35-7.45) ABG pCO2 (35-45) mmHg ABG pO2 (83-108) mmHg ABG Total CO2 (19-24) mmol/L ABG O2 Saturation (94-97) % Sodium (137-145) mmol/L Potassium (3.5-5.1) mmol/L Chloride (98-107) mmol/L BUN (9-20) mg/dL Creatinine (0.66-1.25) mg/dL Glucose (74-99) mg/dL POC Glucose (mg/dL) 166 H 172 H 155 H (75-99) mg/dL Calcium (8.4-10.2) mg/dL Phosphorus (2.5-4.5) mg/dL Magnesium (1.6-2.3) mg/dL 10/02/18 10/02/18 10/02/18 Range/Units 03:53 04:12 05:20 RBC (4.30-5.90) m/uL Hgb (13.0-17.5) gm/dL Hct (39.0-53.0) % MCV (80.0-100.0) fL MCH (25.0-35.0) pg MCHC (31.0-37.0) g/dL RDW (11.5-15.5) % Lymphocytes # (Manual) (1.0-4.8) k/uL Metamyelocytes # (Man) (0) k/uL Nucleated RBCs (0-0) /100 WBC APTT (22.0-30.0) sec ABG pH 7.17 L* (7.35-7.45) ABG pCO2 64 H (35-45) mmHg ABG pO2 (83-108) mmHg ABG Total CO2 25 H (19-24) mmol/L ABG O2 Saturation 98.0 H (94-97) % Sodium 134 L (137-145) mmol/L Potassium 5.7 H (3.5-5.1) mmol/L Chloride 97 L (98-107) mmol/L BUN 66 H (9-20) mg/dL Creatinine 3.97 H (0.66-1.25) mg/dL Glucose 153 H (74-99) mg/dL POC Glucose (mg/dL) 175 H (75-99) mg/dL Calcium 7.7 L (8.4-10.2) mg/dL Phosphorus 12.5 H* (2.5-4.5) mg/dL Magnesium 2.4 H (1.6-2.3) mg/dL 10/02/18 10/02/18 10/02/18 Range/Units 05:20 05:20 06:13 RBC 3.91 L (4.30-5.90) m/uL Hgb 7.4 L (13.0-17.5) gm/dL Hct 28.7 L (39.0-53.0) % MCV 73.3 L (80.0-100.0) fL MCH 18.9 L (25.0-35.0) pg MCHC 25.8 L (31.0-37.0) g/dL RDW 22.1 H (11.5-15.5) % Lymphocytes # (Manual) 0.66 L (1.0-4.8) k/uL Metamyelocytes # (Man) 0.09 H (0) k/uL Nucleated RBCs 27 H (0-0) /100 WBC APTT 101.4 H* (22.0-30.0) sec ABG pH (7.35-7.45) ABG pCO2 (35-45) mmHg ABG pO2 (83-108) mmHg ABG Total CO2 (19-24) mmol/L ABG O2 Saturation (94-97) % Sodium (137-145) mmol/L Potassium (3.5-5.1) mmol/L Chloride (98-107) mmol/L BUN (9-20) mg/dL Creatinine (0.66-1.25) mg/dL Glucose (74-99) mg/dL POC Glucose (mg/dL) 158 H (75-99) mg/dL Calcium (8.4-10.2) mg/dL Phosphorus (2.5-4.5) mg/dL Magnesium (1.6-2.3) mg/dL 10/02/18 10/02/18 10/02/18 Range/Units 08:07 10:13 12:01 RBC (4.30-5.90) m/uL Hgb (13.0-17.5) gm/dL Hct (39.0-53.0) % MCV (80.0-100.0) fL MCH (25.0-35.0) pg MCHC (31.0-37.0) g/dL RDW (11.5-15.5) % Lymphocytes # (Manual) (1.0-4.8) k/uL Metamyelocytes # (Man) (0) k/uL Nucleated RBCs (0-0) /100 WBC APTT (22.0-30.0) sec ABG pH (7.35-7.45) ABG pCO2 (35-45) mmHg ABG pO2 (83-108) mmHg ABG Total CO2 (19-24) mmol/L ABG O2 Saturation (94-97) % Sodium (137-145) mmol/L Potassium (3.5-5.1) mmol/L Chloride (98-107) mmol/L BUN (9-20) mg/dL Creatinine (0.66-1.25) mg/dL Glucose (74-99) mg/dL POC Glucose (mg/dL) 157 H 137 H 147 H (75-99) mg/dL Calcium (8.4-10.2) mg/dL Phosphorus (2.5-4.5) mg/dL Magnesium (1.6-2.3) mg/dL 10/02/18 10/02/18 Range/Units 13:08 13:59 RBC (4.30-5.90) m/uL Hgb (13.0-17.5) gm/dL Hct (39.0-53.0) % MCV (80.0-100.0) fL MCH (25.0-35.0) pg MCHC (31.0-37.0) g/dL RDW (11.5-15.5) % Lymphocytes # (Manual) (1.0-4.8) k/uL Metamyelocytes # (Man) (0) k/uL Nucleated RBCs (0-0) /100 WBC APTT (22.0-30.0) sec ABG pH (7.35-7.45) ABG pCO2 (35-45) mmHg ABG pO2 (83-108) mmHg ABG Total CO2 (19-24) mmol/L ABG O2 Saturation (94-97) % Sodium (137-145) mmol/L Potassium (3.5-5.1) mmol/L Chloride (98-107) mmol/L BUN (9-20) mg/dL Creatinine (0.66-1.25) mg/dL Glucose (74-99) mg/dL POC Glucose (mg/dL) 157 H 166 H (75-99) mg/dL Calcium (8.4-10.2) mg/dL Phosphorus (2.5-4.5) mg/dL Magnesium (1.6-2.3) mg/dL Microbiology - Last 24 Hours (Table) 09/27/18 10:36 Blood Culture - Preliminary Blood No Growth after 120 hours 09/29/18 15:45 Catheter Tip Culture - Final Catheter Tip Staphylococcus epidermidis 09/27/18 10:10 Anaerobic Culture - Final Abdomen Assessment and Plan Plan: 1. Abdominal pain secondary to perforated gastric ulcer, ischemic colon at the splenic flexure with bowel obstruction status post exploratory laparotomy, lysis of adhesions, repair of gastric ulcer, transverse colectomy and takedown of the splenic flexure. Continue fluconazole, on daptomycin and meropenem. Dr. Benedict consult appreciated. The patient has been seen by ostomy nurse. Trach performed on saturday, PEG couldnot be performed. 2. Septic shock status post IV fluid resuscitation on vasopressors. Patient is on Nimbex, pressure continues to drop on pressors 3. Acute on chronic hypoxic respiratory failure secondary to above. Patient is currently intubated and on mechanical ventilation. Patient is managed by Dr. Mendoza. Dr. Mendoza concern for ARDS. Trach placement on 09/26 discussed with pulmonary for the need of bronchoscopy or CT angiogram as patient has history of blood clot in his heart. Ultrasound Doppler of lower extremity had difficulty visualizing the venous due to patient's edema and size. 4. Acute kidney injury secondary to shock and ATN. Continue to monitor closely continue to worsen. On hemodialysis 5. Lactic acidosis. 6. Paroxysmal atrial fibrillation with A. fib RVR. Eliquis is on hold. Patient is status post Kcentra for reversal of eliquis. Continue Cardizem drip and Amiodarone dripdiscontinued Continue heparin drip. Rate is currently controlled 7. Acute and chronic diastolic heart failure and generalized anasarca. IV Lasix 80 mg iv bi d. Patient is status post albumin. 8. Severe COPD, stable. 9. Obstructive sleep apnea with CPAP, noncompliance. 10. Mild intermittent asthma, stable. 11. Hyperlipidemia. 12. Gastroesophageal reflux disease and GI prophylaxis. Continue Protonix 40 mg IV daily. 13. Diabetes mellitus type 2 uncontrolled with hyperglycemia secondary to steroids. switched to insulin drip 14. Severe protein calorie malnutrition due to nothing by mouth status. Patient on TPN. 15. Left atrial appendage thrombus found on MIKE during last admission. on heparin drip 16. Hypernatremia and hyperchloremia. 17. Adrenal insufficiency secondary to illness. Patient has been started on hydrocortef 50 mg IV every 12 hours. Prognosis poor. Discharge plan: patient's prognosis is poor family updated and would like to continue aggressive care. ethics consult has been made which appears to be appropriate as patient's prognosis is quite poor
--- NOTE | 2018-10-02 15:00 | P.PN ---
Subjective Progress Note Date: 10/02/18 CHIEF COMPLAINT: abdominal pain HISTORY OF PRESENT ILLNESS: Patient s/p exploratory laparotomy, lysis of adhesions, decompression of colon and small bowel, transverse colectomy with takedown of splenic flexure, and repair of gastric ulcer with Dr. De Leon secondary to pneumoperitoneum, perforated gastric ulcer, ischemic colon at splenic flexure, and bowel obstruction. POD #16. Also, s/p trach 09/26/18. Unable to have PEG tube inserted at that time. The patient remains intubated on mechanical ventilation in the intensive care unit. He remains sedated and on paralytics. FiO2 currently at 100%. ABGs this morning reveals pH 7.17. PCO2 64. PO2 97. HCO3 23. Tube feedings infusing. Patient tolerating well with minimal residuals. PHYSICAL EXAM: VITAL SIGNS: Reviewed GENERAL: Patient sedated on mechanical ventilation HEENT: Trach noted. NG tube with tube feeding infusing. No sclera icterus. Extraocular movements grossly intact. Moist buccal mucosa. Head is atraumatic, normocephalic. No nasal drainage. ABDOMEN: Abdomen nondistended, but obese. Wound vac to abdomen. CHAVEZ drain with serous drainage-connected to suction. Left-sided colostomy with stool present. Ostomy pink/red. NEUROLOGIC: Patient sedated on mechanical ventilation ASSESSMENT: 1. Abdominal pain 2. Pneumoperitoneum 3. S/P exploratory laparotomy, lysis of adhesions, decompression of colon and small bowel, transverse colectomy with takedown of splenic flexure, and repair of gastric ulcer secondary to pneumoperitoneum, perforated gastric ulcer, ischemic colon at splenic flexure, and bowel obstruction 4. Septic shock, present on admission secondary to above 5. History of atrial fibrillation, on long-term anticoagulation with Eliquis 6. History of bowel obstruction 7. History of laparoscopic Bruce fundoplication 8. History of hiatal hernia repair with mesh PLAN: 1. Continue ventilator management per Dr. Love. 2. Continue tube feedings 3. Continue wound vac 4. Continue antibiotics 5. He remains a full code at this time. Patients prognosis remains very poor. Nurse practitioner note has been reviewed by physician. Signing provider agrees with the documented findings, assessment, and plan of care. Objective - Vital Signs Vital signs: Vital Signs Temp 98.2 F 10/02/18 12:45 Pulse 121 H 10/02/18 13:15 Resp 40 H 10/02/18 13:15 BP 101/58 10/02/18 13:15 Pulse Ox 94 L 10/02/18 13:15 Intake & Output 10/01/18 10/02/18 10/02/18 18:59 06:59 18:59 Intake Total 2801.726 2318.374 1799.147 Output Total 3130 1262 2471 Balance -644.107 1272.374 -671.853 Weight 163.2 kg 163.2 kg Intake: IV 504 130 70 0.9 Normal saline @ 10ml/ 120 130 70 hr Anidulafungin 200 mg In 84 Sodium Chloride 0.9% 200 ml @ 84 mls/hr IVPB ONCE ONE Rx#:[id number] Meropenem 1 gm In Sodium 300 Chloride 0.9% 100 ml @ 200 mls/hr IVPB Q12H [facility] Rx#:[id number] Intake, IV Titration 3202.058 2843.374 1404.147 Amount Amiodarone 300 mg In 100 368.75 222.5 Dextrose 5% in Water 250 ml @ 0.5 MG/MIN 25 mls/hr IV .Q10H [facility] Rx#: [id number] Amiodarone 300 mg In 100 Dextrose 5% in Water 250 ml @ 0.5 MG/MIN 25 mls/hr IV .Q10H [facility] Rx#: [id number] Amiodarone 360 mg In 166.5 50 Dextrose 5% in Water 200 ml @ 1 MG/MIN 33.333 mls/ hr IV .Q6H [facility] Rx#: [id number] Anidulafungin 100 mg In 33.3 84 Sodium Chloride 0.9% 100 ml @ 84 mls/hr IVPB DAILY @1200 [facility] Rx#:[id number] Cisatracurium 200 mg In 189.329 172.473 Sodium Chloride 0.9% 180 ml @ 1 MCG/KG/MIN 9.03 mls/hr IV .Q22H9M [facility] Rx# :[id number] Dextrose 5% in Water 100 100 ml @ 618 mls/hr IV .Q10M [facility] with Amiodarone 150 mg Rx#:[id number] Heparin Sod,Pork in 0.45% 239.04 454.96 0 NaCl 25,000 unit In 0.45 % NaCl 1 250ml.bag @ 6.1 UNITS/KG/HR 9.998 mls/hr IV .Q24H [facility] Rx#: [id number] Insulin Regular 100 unit 64.641 56.745 41.023 In Sodium Chloride 0.9% 100 ml @ Per Protocol IV .Q0M [facility] Rx#:[id number] Meropenem 1 gm In Sodium 100 Chloride 0.9% 100 ml @ 200 mls/hr IVPB Q12H [facility] Rx#:[id number] Meropenem 500 mg In 86 Sodium Chloride 0.9% 50 ml @ 100 mls/hr IVPB Q12H [facility] Rx#:[id number] Norepinephrine 8 mg In 406.307 79.385 263.287 Sodium Chloride 0.9% 250 ml @ 0.05 MCG/KG/MIN 14. 35 mls/hr IV .[id number] [facility] Rx#:[id number] Propofol 1,000 mg In 485.938 376.205 284.864 Empty Bag 1 bag @ Titrate IV .Q0M [facility] Rx#: [id number] Tube Feeding 612 663 265 Other 90 60 Output: Drainage 1000 1000 Abdomen 700 900 Medial Abdomen 300 100 Urine 130 112 21 Stool 150 450 Hemodialysis 1999 1999 Other: Voiding Method Indwelling Catheter Indwelling Catheter Indwelling Catheter ABP, PAP, CO, CI - Last Documented Arterial Blood Pressure 112/52 - Labs CBC & Chem 7: 10/02/18 05:20 10/02/18 05:20 Labs: Abnormal Lab Results - Last 24 Hours (Table) 09/30/18 10/01/18 10/01/18 Range/Units 04:56 15:03 16:08 RBC (4.30-5.90) m/uL Hgb (13.0-17.5) gm/dL Hct (39.0-53.0) % MCV (80.0-100.0) fL MCH (25.0-35.0) pg MCHC (31.0-37.0) g/dL RDW (11.5-15.5) % Lymphocytes # (Manual) (1.0-4.8) k/uL Metamyelocytes # (Man) (0) k/uL Nucleated RBCs (0-0) /100 WBC APTT (22.0-30.0) sec ABG pH (7.35-7.45) ABG pCO2 (35-45) mmHg ABG pO2 56 L* (83-108) mmHg ABG Total CO2 (19-24) mmol/L ABG O2 Saturation (94-97) % Sodium (137-145) mmol/L Potassium (3.5-5.1) mmol/L Chloride (98-107) mmol/L BUN (9-20) mg/dL Creatinine (0.66-1.25) mg/dL Glucose (74-99) mg/dL POC Glucose (mg/dL) 179 H 161 H (75-99) mg/dL Calcium (8.4-10.2) mg/dL Phosphorus (2.5-4.5) mg/dL Magnesium (1.6-2.3) mg/dL 10/01/18 10/01/18 10/01/18 Range/Units 17:09 18:09 20:32 RBC (4.30-5.90) m/uL Hgb (13.0-17.5) gm/dL Hct (39.0-53.0) % MCV (80.0-100.0) fL MCH (25.0-35.0) pg MCHC (31.0-37.0) g/dL RDW (11.5-15.5) % Lymphocytes # (Manual) (1.0-4.8) k/uL Metamyelocytes # (Man) (0) k/uL Nucleated RBCs (0-0) /100 WBC APTT (22.0-30.0) sec ABG pH (7.35-7.45) ABG pCO2 (35-45) mmHg ABG pO2 (83-108) mmHg ABG Total CO2 (19-24) mmol/L ABG O2 Saturation (94-97) % Sodium (137-145) mmol/L Potassium (3.5-5.1) mmol/L Chloride (98-107) mmol/L BUN (9-20) mg/dL Creatinine (0.66-1.25) mg/dL Glucose (74-99) mg/dL POC Glucose (mg/dL) 153 H 150 H 160 H (75-99) mg/dL Calcium (8.4-10.2) mg/dL Phosphorus (2.5-4.5) mg/dL Magnesium (1.6-2.3) mg/dL 08/07/19 08/08/19 08/08/19 Range/Units 22:33 00:04 02:18 RBC (4.30-5.90) m/uL Hgb (13.0-17.5) gm/dL Hct (39.0-53.0) % MCV (80.0-100.0) fL MCH (25.0-35.0) pg MCHC (31.0-37.0) g/dL RDW (11.5-15.5) % Lymphocytes # (Manual) (1.0-4.8) k/uL Metamyelocytes # (Man) (0) k/uL Nucleated RBCs (0-0) /100 WBC APTT (22.0-30.0) sec ABG pH (7.35-7.45) ABG pCO2 (35-45) mmHg ABG pO2 (83-108) mmHg ABG Total CO2 (19-24) mmol/L ABG O2 Saturation (94-97) % Sodium (137-145) mmol/L Potassium (3.5-5.1) mmol/L Chloride (98-107) mmol/L BUN (9-20) mg/dL Creatinine (0.66-1.25) mg/dL Glucose (74-99) mg/dL POC Glucose (mg/dL) 166 H 172 H 155 H (75-99) mg/dL Calcium (8.4-10.2) mg/dL Phosphorus (2.5-4.5) mg/dL Magnesium (1.6-2.3) mg/dL 10/02/18 10/02/18 10/02/18 Range/Units 03:53 04:12 05:20 RBC (4.30-5.90) m/uL Hgb (13.0-17.5) gm/dL Hct (39.0-53.0) % MCV (80.0-100.0) fL MCH (25.0-35.0) pg MCHC (31.0-37.0) g/dL RDW (11.5-15.5) % Lymphocytes # (Manual) (1.0-4.8) k/uL Metamyelocytes # (Man) (0) k/uL Nucleated RBCs (0-0) /100 WBC APTT (22.0-30.0) sec ABG pH 7.17 L* (7.35-7.45) ABG pCO2 64 H (35-45) mmHg ABG pO2 (83-108) mmHg ABG Total CO2 25 H (19-24) mmol/L ABG O2 Saturation 98.0 H (94-97) % Sodium 134 L (137-145) mmol/L Potassium 5.7 H (3.5-5.1) mmol/L Chloride 97 L (98-107) mmol/L BUN 66 H (9-20) mg/dL Creatinine 3.97 H (0.66-1.25) mg/dL Glucose 153 H (74-99) mg/dL POC Glucose (mg/dL) 175 H (75-99) mg/dL Calcium 7.7 L (8.4-10.2) mg/dL Phosphorus 12.5 H* (2.5-4.5) mg/dL Magnesium 2.4 H (1.6-2.3) mg/dL 10/02/18 10/02/18 10/02/18 Range/Units 05:20 05:20 06:13 RBC 3.91 L (4.30-5.90) m/uL Hgb 7.4 L (13.0-17.5) gm/dL Hct 28.7 L (39.0-53.0) % MCV 73.3 L (80.0-100.0) fL MCH 18.9 L (25.0-35.0) pg MCHC 25.8 L (31.0-37.0) g/dL RDW 22.1 H (11.5-15.5) % Lymphocytes # (Manual) 0.66 L (1.0-4.8) k/uL Metamyelocytes # (Man) 0.09 H (0) k/uL Nucleated RBCs 27 H (0-0) /100 WBC APTT 101.4 H* (22.0-30.0) sec ABG pH (7.35-7.45) ABG pCO2 (35-45) mmHg ABG pO2 (83-108) mmHg ABG Total CO2 (19-24) mmol/L ABG O2 Saturation (94-97) % Sodium (137-145) mmol/L Potassium (3.5-5.1) mmol/L Chloride (98-107) mmol/L BUN (9-20) mg/dL Creatinine (0.66-1.25) mg/dL Glucose (74-99) mg/dL POC Glucose (mg/dL) 158 H (75-99) mg/dL Calcium (8.4-10.2) mg/dL Phosphorus (2.5-4.5) mg/dL Magnesium (1.6-2.3) mg/dL 10/02/18 10/02/18 10/02/18 Range/Units 08:07 10:13 12:01 RBC (4.30-5.90) m/uL Hgb (13.0-17.5) gm/dL Hct (39.0-53.0) % MCV (80.0-100.0) fL MCH (25.0-35.0) pg MCHC (31.0-37.0) g/dL RDW (11.5-15.5) % Lymphocytes # (Manual) (1.0-4.8) k/uL Metamyelocytes # (Man) (0) k/uL Nucleated RBCs (0-0) /100 WBC APTT (22.0-30.0) sec ABG pH (7.35-7.45) ABG pCO2 (35-45) mmHg ABG pO2 (83-108) mmHg ABG Total CO2 (19-24) mmol/L ABG O2 Saturation (94-97) % Sodium (137-145) mmol/L Potassium (3.5-5.1) mmol/L Chloride (98-107) mmol/L BUN (9-20) mg/dL Creatinine (0.66-1.25) mg/dL Glucose (74-99) mg/dL POC Glucose (mg/dL) 157 H 137 H 147 H (75-99) mg/dL Calcium (8.4-10.2) mg/dL Phosphorus (2.5-4.5) mg/dL Magnesium (1.6-2.3) mg/dL 10/02/18 10/02/18 10/02/18 Range/Units 13:08 13:44 13:59 RBC (4.30-5.90) m/uL Hgb (13.0-17.5) gm/dL Hct (39.0-53.0) % MCV (80.0-100.0) fL MCH (25.0-35.0) pg MCHC (31.0-37.0) g/dL RDW (11.5-15.5) % Lymphocytes # (Manual) (1.0-4.8) k/uL Metamyelocytes # (Man) (0) k/uL Nucleated RBCs (0-0) /100 WBC APTT 79.8 H (22.0-30.0) sec ABG pH (7.35-7.45) ABG pCO2 (35-45) mmHg ABG pO2 (83-108) mmHg ABG Total CO2 (19-24) mmol/L ABG O2 Saturation (94-97) % Sodium (137-145) mmol/L Potassium (3.5-5.1) mmol/L Chloride (98-107) mmol/L BUN (9-20) mg/dL Creatinine (0.66-1.25) mg/dL Glucose (74-99) mg/dL POC Glucose (mg/dL) 157 H 166 H (75-99) mg/dL Calcium (8.4-10.2) mg/dL Phosphorus (2.5-4.5) mg/dL Magnesium (1.6-2.3) mg/dL Microbiology - Last 24 Hours (Table) 09/27/18 10:36 Blood Culture - Preliminary Blood No Growth after 120 hours 09/29/18 15:45 Catheter Tip Culture - Final Catheter Tip Staphylococcus epidermidis 09/27/18 10:10 Anaerobic Culture - Final Abdomen Assessment and Plan (1) Acute abdomen Current Visit: Yes Status: Acute Code(s): R10.0 - ACUTE ABDOMEN SNOMED Co de(s): 9167527 (2) A-fib Current Visit: No Status: Acute Priority: High Code(s): I48.91 - UNSPECIFIED ATRIAL FIBRILLATION SNOMED Code(s): 06059178 (3) Abdominal pain Current Visit: No Status: Acute Code(s): R10.9 - UNSPECIFIED ABDOMINAL PAIN SNOMED Code(s): 50179363 (4) S/P exploratory laparotomy Current Visit: No Status: Acute Code(s): Z98.89 - OTHER SPECIFIED POSTPROCEDURAL STATES * DO NOT USE * SNOMED Code(s): 914686750
[2018-10-02 15:12] LABS: Glucose,Whole Blood 161 mg/dL (75-99)
--- NOTE | 2018-10-02 15:39 | PN ---
PROGRESS NOTE DATE OF SERVICE: 10/02/2018. REASON FOR FOLLOWUP: Abdominal sepsis. INTERVAL HISTORY: The patient is currently afebrile. The patient is hemodynamically slightly better compared to yesterday requiring less amount of Levophed per the RN taking care of the patient. The patient is currently undergoing dialysis. FiO2 is still is 100%. Has been tolerating tube feeds and did have output in his colostomy bag. PHYSICAL EXAMINATION: Blood pressure is 101/58 with a pulse of 121, temperature 98.2, he is 97% on 100% FiO2. General description is an elderly male, lying in bed in no distress. RESPIRATORY SYSTEM: Unlabored breathing with coarse breath sounds bilaterally. HEART: S1, S2. Tachycardic. ABDOMEN: Soft mildly distended. Midline wounds: With wound VAC. Extremities are 2+ edema of the feet. LABS: Hemoglobin 7.4, white count 9.4 with a BUN of 66, creatinine 3.97. DIAGNOSTIC IMPRESSION AND PLAN: 1. Patient with abdominal abscess. The patient did have perforated peptic ulcer disease, ischemic infection, status post extensive surgery and diverting colostomy. The patient failed to be weaned off the vent assist status post tracheostomy. The patient with a new fever, antibiotic will adjust to meropenem and daptomycin for observation of his fever to continue. 2. Patient did have positive culture obtained from his abdominal incision on September 27, which shows E coli currently covered with meropenem as well as the mucosa which is more likely a colonizer or recontamination, as clinically doubt any worsening fungal infection in this patient currently showing hemodynamic improvement, resolution of his leukocytosis and no fever. Overall prognosis remains to be guarded, continue supportive care. MMODL / IJN: [id number] /
[2018-10-02 16:04] LABS: Glucose,Whole Blood 165 mg/dL (75-99)
[2018-10-02 17:59] LABS: Glucose,Whole Blood 166 mg/dL (75-99)
[2018-10-02 20:06] LABS: Glucose,Whole Blood 156 mg/dL (75-99)
[2018-10-02 21:54] LABS: Glucose,Whole Blood 151 mg/dL (75-99)
[2018-10-03] MEDS ORDERED: MEROPENEM 500 MG in SODIUM CHLORIDE 0.9% 50 ML IVPB SCH ×2
[2018-10-03 00:01] LABS: Glucose,Whole Blood 159 mg/dL (75-99)
[2018-10-03 02:08] LABS: Glucose,Whole Blood 173 mg/dL (75-99)
[2018-10-03] MEDS: IPRATROPIUM-ALBUTEROL 3 ML NEB INHALATION SCH ×3 (03:18→11:19)
[2018-10-03] MEDS: PROPOFOL 1,000 MG in EMPTY BAG 1 BAG IV SCH ×3 (04:15→09:31)
[2018-10-03 04:20] LABS: Glucose,Whole Blood 170 mg/dL (75-99)
[2018-10-03] MEDS: HYDROmorphone 1 MG/ML 1 ML SYRINGE IVP SCH ×2 (04:39→08:39)
[2018-10-03] MEDS ORDERED: AMIODARONE 300 MG in DEXTROSE 5% IN WATER 250 ML IV SCH ×2 (05:00)
[2018-10-03 06:13] LABS: Glucose,Whole Blood 168 mg/dL (75-99)
[2018-10-03] MEDS: AMIODARONE 300 MG in DEXTROSE 5% IN WATER 250 ML IV SCH ×2 (06:21)
--- NOTE | 2018-10-03 07:19 | PN ---
PROGRESS NOTE This is a pulmonary/critical care progress note. DATE OF SERVICE: October 03, 2018 CRITICAL CARE TIME: 33 minutes. This is a patient who was 72 years of age. He was admitted back on September 16 for ischemic bowel and perforated ulcer. He went to the operating room on the same day of admission, had gastric ulcer repair, transverse colectomy, lysis of adhesions and of course exploratory laparotomy. The patient has been on mechanical ventilation since. Because of failure to wean, he had a tracheostomy performed on September 26. He remains on the ventilator with hypoxemic respiratory failure and acute respiratory distress syndrome (ARDS). We have had multiple discussions with the family about code status. In my opinion because the patient has done very poorly here, they have been very unrealistic about his chances for recovery. The patient was started on hemodialysis. He has undergone 3 treatments. In addition to myself, consultants include Nephrology, Surgery, Cardiology and Infectious Diseases. Currently, he remains on the ventilator. He is on volume assist-control mode rate of 40, tidal volume 500, FiO2 100%, PEEP of 10. Blood gases are pending. Currently, he is on multiple drips including saline at 10 mL an hour, insulin at 4.5 units an hour, amiodarone at 0.5 mg/minute, Nimbex 2 mcg/kg per minute, propofol at 40 mcg/kg per minute, norepinephrine at 60 mcg/minute, heparin via weight based protocol and Nepro at a rate of 28 with a goal of 28 mL an hour. Apparently the family has decided to make the patient a DNR, that has apparently happened late yesterday. The patient also has been noted to show cultures of E coli in the wound and Coag-negative staph on the catheter tip. He is being treated for both. He is undergoing 3 hemodialysis treatments. PHYSICAL EXAMINATION: VITAL SIGNS: Current vital signs are reviewed. His temperature is 98.4, heart rate 117, respiratory rate 40, blood pressure 114/64, mean 80, saturations are between 95% and 99%. Currently sedated and paralyzed. HEENT: Examination is grossly unremarkable. NG tube is noted. NECK: Supple. Full range of motion. There is a midline tracheostomy. CARDIOVASCULAR: Examination reveals tachycardia. It is irregular. He is currently in atrial fibrillation. Heart sounds are distant. S1, S2 normal. LUNGS: Reveal diffuse coarse rhonchi. Breath sounds are equal, but diminished throughout. ABDOMEN: Soft. Bowel sounds are noted. EXTREMITIES: Are intact. There is diffuse edema and anasarca. SKIN: Without rash. NEUROLOGIC: Examination could not be properly assessed as he is sedated and paralyzed. MICROBIOLOGY: Microbiology from many days back show both Staph epidermidis and E coli in the Edwin- Harris drain, E coli and Mucor species from the abdominal wound and catheter tip showing evidence of Staph epidermidis. LABS: Labs are reviewed. Nothing yet is back on the patient from today. X-RAY: His chest x-ray is currently pending. MEDICATIONS: His medications include Eraxis, daptomycin and meropenem in the form of antibiotics. The rest of the medications are appropriate and include hydrocortisone at 50 mg q.12 hours per presumed adrenal insufficiency. ASSESSMENT: 1. Chronic hypoxemic respiratory failure with failure to wean from mechanical ventilation with initial intubation on September 16, subsequent tracheostomy on September 26, secondary to acute respiratory distress syndrome (ARDS). 2. Postoperative day #17, status post exploratory laparotomy, lysis of adhesions, repair of gastric ulcer, and transverse colectomy. 3. Abdominal sepsis with septic shock. 4. Acute hypoxemic respiratory failure with acute respiratory distress syndrome, secondary to sepsis. 5. Acute kidney injury/acute tubular necrosis with ongoing hemodialysis. 6. Possible abdominal compartment syndrome. 7. Paroxysmal atrial fibrillation. 8. Chronic obstructive pulmonary disease, stable. 9. Status post tracheostomy on September 26, postop day #7. 10.History of diastolic heart failure. 11.Anion gap metabolic acidosis. 12.Failure to wean from mechanical ventilation. 13.Diabetes mellitus. 14.Chronic hypoxemic respiratory failure. 15.Presumed critical illness polyneuropathy. 16.Escherichia coli and Staphylococcus epidermidis sepsis. PLAN: The patient was made a DNR yesterday. Apparently there is some talk from the family that they may decide to withdraw life support. They have been reluctant to do that. The patient remains on full support. He is on the mechanical ventilator. He is receiving IV insulin, amiodarone, Nimbex, propofol, norepinephrine and IV heparin. His overall prognosis is poor. We continue to fully support him though. CRITICAL CARE TIME: 33 minutes. MMEDWARDOL / ASIAN: [id number] /
--- NOTE | 2018-10-03 07:32 | P.PN ---
Progress Note - Text Progress Note Date: 10/03/18 This is a pleasant 72-year-old gentleman who sees Dr. Wasserman in the office as an outpatient with a past medical history significant for coronary artery disease and prior stenting of the left anterior descending artery in the proximal and midportion in February 2018, hypertension, and dyslipidemia, was admitted to the hospital today to undergo coronary artery bypass grafting this coming by Dr. Turcios. The patient was experiencing symptoms of chest pain and chest discomfort. He underwent a stress test which showed ischemia in the left circumflex territory. Because of that he underwent a heart catheterization which revealed critical disease involving the ostial left anterior descending artery. The patient was seen and evaluated by cardiothoracic surgeon who recommended proceeding with coronary artery bypass grafting. Unfortunately the patient was receiving dual antiplatelet with aspirin as well as Brilinta. He was admitted to the hospital today where the Brilinta was stopped and he is on heparin IV for the procedure to be done in the next 48 hours. Clinically he is asymptomatic at this point. He denies any chest pain or chest discomfort, difficulty breathing, or feeling of heart racing or fluttering. The echocardiogram from earlier this year revealed normal LV function with mild aortic stenosis. On follow-up with the patient today, 10/03/2018, the patient continues not doing well. Currently he is DO NOT RESUSCITATE. Possibly he is going to call for care later on today. Cardiac-reynolds he continues to be in atrial fibrillation with relatively controlled heart rates. He is on amiodarone IV. Beside that he is on heparin IV.
[2018-10-03] MEDS: NOREPINEPHRINE 8 MG in SODIUM CHLORIDE 0.9% 250 ML IV SCH (07:47)
[2018-10-03 08:09] LABS: Glucose,Whole Blood 156 mg/dL (75-99)
[2018-10-03] MEDS: CHLORHEXIDINE GLUCONATE 15 ML CUP MUCOUS MEM SCH (08:39)
--- NOTE | 2018-10-03 09:08 | P.PN ---
Subjective Patient is seen in follow-up for acute kidney injury. Patient remains oliguric. He was started on hemodialysis September 30. Currently on low dose Levophed. Maintained on tube feeding. Patient has been receiving hemodialysis almost on a daily basis. Family has decided to proceed with comfort measures this afternoon. Vital signs are stable. Currently on vasopressors. General: The patient appeared well nourished and normally developed. HEENT: Head exam is unremarkable. Neck is without jugular venous distension. OG tube noted. LUNGS: Lungs are clear to auscultation and percussion. Breath sounds decreased. HEART: Rate and Rhythm are regular. First and second heart sounds normal. No murmurs, rubs or gallops. ABDOMEN: Bowel sounds decreased. EXTREMITITES: 2+ edema. Scrotal edema noted. Objective - Vital Signs Vital signs: Vital Signs Temp 98.7 F 10/03/18 04:00 Pulse 120 H 10/03/18 07:30 Resp 40 H 10/03/18 07:00 BP 110/56 10/03/18 07:00 Pulse Ox 100 10/03/18 07:00 Intake & Output 10/02/18 10/03/18 10/03/18 18:59 06:59 18:59 Intake Total 2539.873 1790.798 14.67 Output Total 3376 350 Balance -508.277 3560.798 14.67 Weight 163.2 kg 163.6 kg Intake: IV 110 130 0.9 Normal saline @ 10ml/ 110 130 hr Intake, IV Titration 3310.613 0137.798 14.67 Amount Amiodarone 300 mg In 222.5 Dextrose 5% in Water 250 ml @ 0.5 MG/MIN 25 mls/hr IV .Q10H [facility] Rx#: [id number] Amiodarone 300 mg In 200 300 Dextrose 5% in Water 250 ml @ 0.5 MG/MIN 25 mls/hr IV .Q10H [facility] Rx#: [id number] Amiodarone 360 mg In 50 Dextrose 5% in Water 200 ml @ 1 MG/MIN 33.333 mls/ hr IV .Q6H [facility] Rx#: [id number] Anidulafungin 100 mg In 84 Sodium Chloride 0.9% 100 ml @ 84 mls/hr IVPB DAILY @1200 [facility] Rx#:[id number] Cisatracurium 200 mg In 172.473 200 Sodium Chloride 0.9% 180 ml @ 1 MCG/KG/MIN 9.03 mls/hr IV .Q22H9M [facility] Rx# :[id number] Heparin Sod,Pork in 0.45% 165.807 84.193 NaCl 25,000 unit In 0.45 % NaCl 1 250ml.bag @ 6.1 UNITS/KG/HR 9.998 mls/hr IV .Q24H [facility] Rx#: [id number] Insulin Regular 100 unit 53.143 28.137 14.67 In Sodium Chloride 0.9% 100 ml @ Per Protocol IV .Q0M [facility] Rx#:[id number] Meropenem 1 gm In Sodium 100 Chloride 0.9% 100 ml @ 200 mls/hr IVPB Q12H [facility] Rx#:[id number] Meropenem 500 mg In 86 Sodium Chloride 0.9% 50 ml @ 100 mls/hr IVPB Q12H [facility] Rx#:[id number] Norepinephrine 8 mg In 381.347 338.241 Sodium Chloride 0.9% 250 ml @ 0.05 MCG/KG/MIN 14. 35 mls/hr IV .[id number] [facility] Rx#:[id number] Propofol 1,000 mg In 475.603 346.227 Empty Bag 1 bag @ Titrate IV .Q0M [facility] Rx#: [id number] Tube Feeding 349 364 Other 90 Output: Drainage 900 150 Abdomen 800 50 Medial Abdomen 100 100 Urine 26 50 Stool 450 150 Hemodialysis 2000 Other: Voiding Method Indwelling Catheter Indwelling Catheter ABP, PAP, CO, CI - Last Documented Arterial Blood Pressure 112/52 - Labs CBC & Chem 7: 10/02/18 05:20 10/02/18 05:20 Labs: Abnormal Lab Results - Last 24 Hours (Table) 09/30/18 10/02/18 10/02/18 Range/Units 04:56 10:13 12:01 APTT (22.0-30.0) sec ABG pO2 56 L* (83-108) mmHg POC Glucose (mg/dL) 137 H 147 H (75-99) mg/dL 10/02/18 10/02/18 10/02/18 Range/Units 13:08 13:44 13:59 APTT 79.8 H (22.0-30.0) sec ABG pO2 (83-108) mmHg POC Glucose (mg/dL) 157 H 166 H (75-99) mg/dL 10/02/18 10/02/18 10/02/18 Range/Units 15:08 16:02 17:58 APTT (22.0-30.0) sec ABG pO2 (83-108) mmHg POC Glucose (mg/dL) 161 H 165 H 166 H (75-99) mg/dL 10/02/18 10/02/18 10/02/18 Range/Units 20:04 21:32 21:53 APTT 71.3 H (22.0-30.0) sec ABG pO2 (83-108) mmHg POC Glucose (mg/dL) 156 H 151 H (75-99) mg/dL 10/02/18 10/03/18 10/03/18 Range/Units 23:59 02:06 04:18 APTT (22.0-30.0) sec ABG pO2 (83-108) mmHg POC Glucose (mg/dL) 159 H 173 H 170 H (75-99) mg/dL 10/03/18 10/03/18 Range/Units 06:11 08:08 APTT (22.0-30.0) sec ABG pO2 (83-108) mmHg POC Glucose (mg/dL) 168 H 156 H (75-99) mg/dL Microbiology - Last 24 Hours (Table) 09/27/18 10:36 Blood Culture - Preliminary Blood No Growth after 120 hours Assessment and Plan Plan: Assessment: 1. Oliguric acute kidney injury secondary to ATN secondary to septic shock. Baseline creatinine is 1. Currently hemodialysis dependent. 2. Pneumoperitoneum secondary to perforated gastric ulcer status post exploratory laparotomy with lysis of adhesions and repair of gastric ulcer on September 16. 3. A. fib with RVR maintained on amiodarone and heparin drip. 4. Volume overload. 5. Septic shock secondary to peritonitis from perforated peptic ulcer maintained on IV antibiotics. 6. Hyperphosphatemia secondary to acute kidney injury. Maintained on PhosLo. 7. Metabolic acidosis secondary to acute kidney injury and IV fluids. Better. Maintained on oral sodium bicarbonate. 8. Hyperkalemia secondary to acute kidney injury. Plan: Hold off on hemodialysis. Family has decided to proceed with comfort measures this afternoon.
[2018-10-03 09:45] VITALS: TEMP 98
[2018-10-03] MEDS: CALCIUM ACETATE 667 MG CAP PO SCH (09:55)
[2018-10-03] MEDS: PANTOPRAZOLE 40 MG/10 ML VIAL IVP SCH (09:57)
[2018-10-03] MEDS: FUROSEMIDE 10 MG/ML 10 ML VIAL IV SCH (09:57)
[2018-10-03] MEDS: HYDROCORTISONE SUCCINATE 100 MG/2 ML VIAL IV SCH (09:58)
[2018-10-03] MEDS: SODIUM BICARBONATE TAB 650 MG TAB PO SCH (09:58)
[2018-10-03 10:24] LABS: Glucose,Whole Blood 163 mg/dL (75-99)
[2018-10-03] MEDS ORDERED: ONDANSETRON 4 MG/2 ML VIAL IVP PRN (12:17)
[2018-10-03] MEDS ORDERED: ATROPINE OPHTH SOLN 1% 5ML BTL SUBLINGUAL PRN (12:17)
[2018-10-03] MEDS ORDERED: MORPHINE SULFATE 4 MG/ML SYRINGE IV PRN (12:17)
[2018-10-03] MEDS ORDERED: LORazepam 2 MG/ML INJ IV PRN (12:17)
[2018-10-03] MEDS ORDERED: SCOPOLAMINE 1.5MG/72HR PATCH TRANSDERM SCH (12:30)
[2018-10-03] MEDS ORDERED: MORPHINE SULFATE (100 MG/2 ML) 100 MG in SODIUM CHLORIDE 0.9% 100 ML IV SCH (13:00)
[2018-10-03 14:56] VITALS: BP 135/73; PULSE 0; RESP 0
--- NOTE | 2018-10-06 12:01 | CDI ---
Documentation Clarification Form Date: 10/06/18 From: Tami Celaya Phone: If questions call Mariam King @ [phone], Hours-8:30 am & 5 pm M- F Admit Date: 09/16/2018 1:48:00 PM Patient Name: Deondre Estevez Visit Number: [id number] Discharge Date: 10/03/2018 1:44:00 PM ATTENTION: The Clinical Documentation Specialists (CDI) and [facility] Coding Staff appreciate your assistance in clarifying documentation. Please respond to the clarification below the line at the bottom and electronically sign. The CDI & [facility] Coding staff will review the response and follow-up if needed. Please note: Queries are made part of the Legal Health Record. If you have any questions, please contact the author of this message via ITS. Dr. Tarik Mcginnis Can you please dictate the /Discharge Summary and include the likely/preliminary cause of ? Thank you for your assistance. not primary, primary team was Dr. De Leon MTDSean
--- NOTE | 2018-10-09 06:41 | CDI ---
Documentation Clarification Form Date: 10/06/2018 12:00:00 PM From: Tami Celaya Phone: If questions call Mariam King @ [phone], Hours-8:30 am & 5 pm Jessenia Fitch Admit Date: 09/16/2018 1:48:00 PM Patient Name: Deondre Estevez Visit Number: [id number] Discharge Date: 10/03/2018 1:44:00 PM ATTENTION: The Clinical Documentation Specialists (CDI) and [facility] Coding Staff appreciate your assistance in clarifying documentation. Please respond to the clarification below the line at the bottom and electronically sign. The CDI & [facility] Coding staff will review the response and follow-up if needed. Please note: Queries are made part of the Legal Health Record. If you have any questions, please contact the author of this message via ITS. Dr. Duane De Leon Can you please dictate the /Discharge Summary and include the likely/preliminary cause of ? Thank you for your assistance. MTDD
--- NOTE | 2018-10-31 16:11 | P.DS ---
Providers Date of admission: 09/16/18 13:48 Expected date of discharge: 10/03/18 Attending physician: Duane De Leon Consults: 09/16/18 14:38 Consult Physician Routine Consulting Provider: Saurav Red Consult Reason/Comments: ICU management Do you want consulting provider notified?: Yes 09/16/18 14:39 Consult Physician Routine Consulting Provider: Rosa Rich Consult Reason/Comments: medical management Do you want consulting provider notified?: Yes Consult Physician Routine Consulting Provider: Osmani Benedict Consult Reason/Comments: pneumoperitoneum, peritonitis Do you want consulting provider notified?: Yes 09/22/18 08:13 Consult Physician Routine Consulting Provider: Jey Cruz Consult Reason/Comments: afib, recent admit Do you want consulting provider notified?: Yes 09/28/18 07:56 Consult Physician Stat Consulting Provider: Vale Woodard Consult Reason/Comments: Acute Renal Failure Do you want consulting provider notified?: Yes 09/28/18 11:11 Consult Physician Routine Consulting Provider: Vale Woodard Consult Reason/Comments: ARF Do you want consulting provider notified?: Yes Primary care physician: Nolberto Cevallos - Discharge Diagnosis(es) (1) Acute abdomen Status: Acute (2) A-fib Status: Acute Priority: High (3) Abdominal pain Status: Acute (4) S/P exploratory laparotomy Status: Acute Hospital Course: 72-year-old male who presented to the emergency room with severe abdominal pain. Patient reports feeling constipated over the past week and has not had a bowel movement in approximately 6 or 7 days. He reports he had his gave him an enema twice. Patient states he felt a "pop" in the lower portion of his abdomen followed by severe abdominal pain. Patient also reports an episode of emesis. CAT scan was completed in the emergency room revealing pneumoperitoneum. Patient underwent exploratory laparotomy, lysis of adhesions, decompression of colon and small bowel, transverse colectomy with takedown of splenic flexure, and repair of gastric ulcer yesterday with Dr. De Leon secondary to pneumoperitoneum, perforated gastric ulcer, ischemic colon at splenic flexure, and bowel obs truction. Patient remained intubated postoperatively and continued difficulty weaning from the ventilator. He continued to require more ventilator support with higher Fio2. Pulmonary believed the patient developed ARDS. He eventually required tracheostomy. He developed A. fib with RVR during hospitalization. Cardiology followed throughout hospitalization. Patient also developed acute renal failure during hospital and required dialysis. He continued to decline during his hospitalization requiring vasopressor support and full ventilator support. Decision was made by family to make patient DNR comfort care measures only. Patient was terminally weaned and on 10/03/18. Please see EMR for further hospital course details. Discharge Diagnosis: 1. Abdominal pain 2. Pneumoperitoneum 3. S/P exploratory laparotomy, lysis of adhesions, decompression of colon and small bowel, transverse colectomy with takedown of splenic flexure, and repair of gastric ulcer secondary to pneumoperitoneum, perforated gastric ulcer, ischemic colon at splenic flexure, and bowel obstruction 4. Septic shock, present on admission secondary to above 5. History of atrial fibrillation, on long-term anticoagulation with Eliquis 6. History of bowel obstruction 7. History of laparoscopic Bruce fundoplication 8. History of hiatal hernia repair with mesh 9. Acute kidney failure secondary to shock and ATN, requiring hemodialysis 10. Lactic acidosis 11. Paroxysmal atrial fibrillation with RVR 12. Acute hypoxic respiratory failure, concern for ARDS, requiring tracheostomy 13. Acute on chronic diastolic heart failure and generalized anasarca Preliminary cause of : Multi organ system failure Nurse practitioner note has been reviewed by physician. Signing provider agrees with the documented findings, assessment, and plan of care. Plan - Discharge Summary Discharge Rx Participant: No New Discharge Prescriptions: No Action Multivitamin [Men's Multi-Vitamin] 1 tab PO DAILY Aspirin EC [Ecotrin Low Dose] 81 mg PO DAILY #0 tablet. Atorvastatin [Lipitor] 20 mg PO HS #30 tab Montelukast [Singulair] 10 mg PO HS #30 tab Potassium Chloride [K-Tab ER] 20 meq PO BID Albuterol Sulfate [Proair Respiclick] 1 puff INHALATION RT-BID Ipratropium-Albuterol Nebulize [Duoneb 0.5 mg-3 mg/3 ml Soln] 3 ml INHALATION RT-QID PRN PRN Reason: Shortness Of Breath Sennosides-Docusate Sodium [Senokot-S] 1 tab PO BID #60 tablet sitaGLIPtin [Januvia] 100 mg PO DAILY metFORMIN HCL 1,000 mg PO AC-BRKFST metFORMIN HCL 1,500 mg PO AC-SUPPER Umeclidinium Brm/Vilanterol Tr [Anoro Ellipta 62.5-25 Mcg INH] 1 puff INHALATION RT-DAILY Ferrous Sulfate [Iron (65 MG Elemental)] 325 mg PO DAILY Apixaban [Eliquis] 5 mg PO BID #60 tab Spironolactone [Aldactone] 25 mg PO BID #60 tab Hydrocortisone [Hydrocortisone 0.05%] 1 applic TOPICAL BID #28 gm Verapamil Sr [Isoptin Sr] 240 mg PO BID #60 tablet.er Furosemide [Lasix] 60 mg PO BID@0900,1600 #180 tab Nystatin 100,000 Unit/gm Powd [Mycostatin Powder] 1 applic TOPICAL BID #0 applic predniSONE 40 mg PO DAILY #14 tab Amiodarone [Cordarone] 200 mg PO BID #60 tab Amoxicillin/Potassium Clav [Augmentin 875-125 Tablet] 1 tab PO Q12HR Discharge Medication List Multivitamin [Men's Multi-Vitamin] 1 tab PO DAILY 10/08/14 [History] Aspirin EC [Ecotrin Low Dose] 81 mg PO DAILY #0 tablet. 01/11/15 [Rx] Atorvastatin [Lipitor] 20 mg PO HS #30 tab 01/11/15 [Rx] Montelukast [Singulair] 10 mg PO HS #30 tab 01/11/15 [Rx] Potassium Chloride [K-Tab ER] 20 meq PO BID 11/12/15 [History] Albuterol Sulfate [Proair Respiclick] 1 puff INHALATION RT-BID 01/08/17 [History] Ipratropium-Albuterol Nebulize [Duoneb 0.5 mg-3 mg/3 ml Soln] 3 ml INHALATION RT-QID PRN 01/08/17 [History] Sennosides-Docusate Sodium [Senokot-S] 1 tab PO BID #60 tablet 01/14/17 [Rx] Ferrous Sulfate [Iron (65 MG Elemental)] 325 mg PO DAILY 09/07/18 [History] Umeclidinium Brm/Vilanterol Tr [Anoro Ellipta 62.5-25 Mcg INH] 1 puff INHALATION RT-DAILY 09/07/18 [History] metFORMIN HCL 1,000 mg PO AC-BRKFST 09/07/18 [History] metFORMIN HCL 1,500 mg PO AC-SUPPER 09/07/18 [History] sitaGLIPtin [Januvia] 100 mg PO DAILY 09/07/18 [History] Apixaban [Eliquis] 5 mg PO BID #60 tab 09/11/18 [Rx] Amiodarone [Cordarone] 200 mg PO BID #60 tab 09/12/18 [Rx] Furosemide [Lasix] 60 mg PO BID@0900,1600 #180 tab 09/12/18 [Rx] Hydrocortisone [Hydrocortisone 0.05%] 1 applic TOPICAL BID #28 gm 09/12/18 [Rx] Nystatin 100,000 Unit/gm Powd [Mycostatin Powder] 1 applic TOPICAL BID #0 applic 09/12/18 [Rx] Spironolactone [Aldactone] 25 mg PO BID #60 tab 09/12/18 [Rx] Verapamil Sr [Isoptin Sr] 240 mg PO BID #60 tablet.er 09/12/18 [Rx] predniSONE 40 mg PO DAILY #14 tab 09/12/18 [Rx] Amoxicillin/Potassium Clav [Augmentin 875-125 Tablet] 1 tab PO Q12HR 09/16/18 [History] Follow up Appointment(s)/Referral(s): Nolberto Cevallos DO [Primary Care Provider] - 1-2 days Patient Instructions/Handouts: Colostomy Care (GEN) Activity/Diet/Wound Care/Special Instructions: Colostomy Care Instructions for transition of care: Last Pouching System Change: 09.19.2018 Ostomy Pouching system recommendations: Convatec one piece cut to fit #[id number] with filter Change pouching system every 3-5 days Mr Estevez will have three form the hospital No sting prep pads (12) from the hospital Osotmy powder (one bottle) Discharge Disposition: - Preliminary Cause of Preliminary Cause of : Multisystem organ failure
== END 2018-10-03 13:44 | disposition expired | DRG 3 ==
LOC: EC 10:00 → 3SCARD 13:48 → 2SICU 15:34
PROVIDERS: ADMIT Surgery; ATTEND Surgery
PROC: 5A1955Z Respiratory Ventilation, Greater than 96 Consecutive Hours (ICD-10-PCS; 2018-09-16)
PROC: 0DBL0ZZ Excision of Transverse Colon, Open Approach (ICD-10-PCS; 2018-09-16)
PROC: 0DU907Z Supplement Duodenum with Autologous Tissue Substitute, Open Approach (ICD-10-PCS; 2018-09-16)
PROC: 0D980ZZ Drainage of Small Intestine, Open Approach (ICD-10-PCS; 2018-09-16)
PROC: 0D1L0Z4 Bypass Transverse Colon to Cutaneous, Open Approach (ICD-10-PCS; 2018-09-16)
PROC: 0D9670Z Drainage of Stomach with Drainage Device, Via Natural or Artificial Opening (ICD-10-PCS; 2018-09-16)
PROC: 0D9 Gastrointestinal System, Drainage (ICD-10-PCS; 2018-09-16 14:30)
PROC: 03HY32Z Insertion of Monitoring Device into Upper Artery, Percutaneous Approach (ICD-10-PCS; 2018-09-17)
PROC: 4A133B1 Monitoring of Arterial Pressure, Peripheral, Percutaneous Approach (ICD-10-PCS; 2018-09-17)
PROC: 4A133J1 Monitoring of Arterial Pulse, Peripheral, Percutaneous Approach (ICD-10-PCS; 2018-09-17)
PROC: 05HM33Z Insertion of Infusion Device into Right Internal Jugular Vein, Percutaneous Approach (ICD-10-PCS; 2018-09-17)
PROC: 3E0436Z Introduction of Nutritional Substance into Central Vein, Percutaneous Approach (ICD-10-PCS; 2018-09-18)
PROC: 3E0G76Z Introduction of Nutritional Substance into Upper GI, Via Natural or Artificial Opening (ICD-10-PCS; 2018-09-26)
PROC: 0DJ08ZZ Inspection of Upper Intestinal Tract, Via Natural or Artificial Opening Endoscopic (ICD-10-PCS; 2018-09-26)
PROC: 0B110F4 Bypass Trachea to Cutaneous with Tracheostomy Device, Open Approach (ICD-10-PCS; principal; 2018-09-26 13:00)
PROC: 02HV33Z Insertion of Infusion Device into Superior Vena Cava, Percutaneous Approach (ICD-10-PCS; 2018-09-29)
PROC: 06HY33Z Insertion of Infusion Device into Lower Vein, Percutaneous Approach (ICD-10-PCS; 2018-09-30)
PROC: 5A1D70Z Performance of Urinary Filtration, Intermittent, Less than 6 Hours Per Day (ICD-10-PCS; 2018-09-30)
DX: A41.51 Sepsis due to Escherichia coli [E. coli] (principal); R65.21 Severe sepsis with septic shock; K25.5 Chronic or unspecified gastric ulcer with perforation; K55.039 Acute (reversible) ischemia of large intestine, extent unspecified; N17.0 Acute kidney failure with tubular necrosis; I50.33 Acute on chronic diastolic (congestive) heart failure; B46.5 Mucormycosis, unspecified; E43 Unspecified severe protein-calorie malnutrition; J96.21 Acute and chronic respiratory failure with hypoxia; J18.9 Pneumonia, unspecified organism; K65.1 Peritoneal abscess; G62.81 Critical illness polyneuropathy; K56.609 Unspecified intestinal obstruction, unspecified as to partial versus complete obstruction; E87.4 Mixed disorder of acid-base balance; S22.080A Wedge compression fracture of T11-T12 vertebra, initial encounter for closed fracture; L03.311 Cellulitis of abdominal wall; R18.8 Other ascites; Z68.43 Body mass index [BMI] 50.0-59.9, adult; J98.11 Atelectasis; J44.0 Chronic obstructive pulmonary disease with (acute) lower respiratory infection; K94.03 Colostomy malfunction; E87.0 Hyperosmolality and hypernatremia; E27.40 Unspecified adrenocortical insufficiency; I48.1 Persistent atrial fibrillation; N17.9 Acute kidney failure, unspecified; K55.9 Vascular disorder of intestine, unspecified; Z66 Do not resuscitate; Z51.5 Encounter for palliative care; E66.01 Morbid (severe) obesity due to excess calories; R57.1 Hypovolemic shock; A41.1 Sepsis due to other specified staphylococcus; I48.0 Paroxysmal atrial fibrillation; I48.2 Chronic atrial fibrillation; E11.65 Type 2 diabetes mellitus with hyperglycemia; E87.5 Hyperkalemia; E87.8 Other disorders of electrolyte and fluid balance, not elsewhere classified; I11.0 Hypertensive heart disease with heart failure; K66.8 Other specified disorders of peritoneum; I51.3 Intracardiac thrombosis, not elsewhere classified; E83.39 Other disorders of phosphorus metabolism; D75.1 Secondary polycythemia; R16.0 Hepatomegaly, not elsewhere classified; I25.10 Atherosclerotic heart disease of native coronary artery without angina pectoris; K66.0 Peritoneal adhesions (postprocedural) (postinfection); N43.3 Hydrocele, unspecified; E78.5 Hyperlipidemia, unspecified; J45.20 Mild intermittent asthma, uncomplicated; M19.90 Unspecified osteoarthritis, unspecified site; K21.9 Gastro-esophageal reflux disease without esophagitis; G47.33 Obstructive sleep apnea (adult) (pediatric); L40.9 Psoriasis, unspecified; T38.0X5A Adverse effect of glucocorticoids and synthetic analogues, initial encounter; Z16.11 Resistance to penicillins; Z91.19 Patient's noncompliance with other medical treatment and regimen; Z99.81 Dependence on supplemental oxygen; Z79.01 Long term (current) use of anticoagulants; Z79.82 Long term (current) use of aspirin; Z79.84 Long term (current) use of oral hypoglycemic drugs; Z79.52 Long term (current) use of systemic steroids; Z79.899 Other long term (current) drug therapy; Z99.2 Dependence on renal dialysis; Z71.3 Dietary counseling and surveillance; Z87.891 Personal history of nicotine dependence; Z99.89 Dependence on other enabling machines and devices; Z88.5 Allergy status to narcotic agent; Z88.8 Allergy status to other drugs, medicaments and biological substances; Z98.890 Other specified postprocedural states; Z83.2 Family history of diseases of the blood and blood-forming organs and certain disorders involving the immune mechanism; Z82.49 Family history of ischemic heart disease and other diseases of the circulatory system; Z80.9 Family history of malignant neoplasm, unspecified
CPT/HCPCS: 36410; 36415; 36573; 36600; 51702; 71045; 74176; 76604; 76937; 80048; 80053; 81001; 82040; 82150; 82330; 82805; 83036; 83605; 83690; 83735; 84100; 84132; 84478; 85025; 85027; 85610; 85730; 86704; 86705; 86706; 86850; 86900; 86901; 87040; 87070; 87075; 87077; 87086; 87186; 87205; 87340; 88307; 90935; 93970; 94002; 94003; 94640; 96361; 96365; 96374; 96375; 96376; 99285